=== PATIENT | female | born 1945 | race Caucasian/White ===

== ENCOUNTER 2019-03-22 08:24 | Outpatient (RCR) | payer MEDICARE, SELFPAY ==
[2019-01-23 04:11] LABS: Immunoglobulin A 165 mg/dL (20-320); Immunoglobulin G 725 mg/dL (600-1540); Immunoglobulin M 61 mg/dL (50-300)
[2019-02-23 20:42] LABS: Immunoglobulin A 139 mg/dL (70-320); Immunoglobulin G 472 mg/dL (600-1540); Immunoglobulin M 46 mg/dL (50-300)
[2019-03-24 21:04] LABS: Immunoglobulin A 176 mg/dL (70-320); Immunoglobulin G 757 mg/dL (600-1540); Immunoglobulin M 55 mg/dL (50-300)
== END 2019-04-19 23:59 | disposition home or self-care (01) ==
LOC: CHSLAB 08:24
PROVIDERS: Visit Provider Internal Medicine Pulmonary Disease
DX: D83.9 Common variable immunodeficiency, unspecified (principal)
CPT/HCPCS: 36415; 82784

== ENCOUNTER 2019-04-07 07:14 | Outpatient (CLI) | payer MEDICARE, SELFPAY ==
[2019-04-07 08:06] LABS: Hemoglobin A1C 9.1 % (<5.7)
== END 2019-04-07 07:15 | disposition home or self-care (01) ==
LOC: CHSLAB 07:16
PROVIDERS: PCP Internal Medicine; Visit Provider Internal Medicine
DX: E11.9 Type 2 diabetes mellitus without complications (principal)
CPT/HCPCS: 36415; 83036

== ENCOUNTER 2019-06-21 08:42 | Outpatient (RCR) | payer MEDICARE, SELFPAY ==
[2019-04-25 03:18] LABS: Immunoglobulin A 143 mg/dL (70-320); Immunoglobulin G 493 mg/dL (600-1540); Immunoglobulin M 43 mg/dL (50-300)
[2019-05-23 10:52] LABS: Immunoglobulin A 155 mg/dL (70-320); Immunoglobulin G 654 mg/dL (600-1540); Immunoglobulin M 84 mg/dL (50-300)
[2019-06-23 21:22] LABS: Immunoglobulin A 146 mg/dL (70-320); Immunoglobulin G 482 mg/dL (600-1540); Immunoglobulin M 70 mg/dL (50-300)
== END 2019-07-20 23:59 | disposition home or self-care (01) ==
LOC: CHSLAB 08:42
PROVIDERS: PCP Internal Medicine; Visit Provider Internal Medicine Pulmonary Disease
DX: D83.9 Common variable immunodeficiency, unspecified (principal)
CPT/HCPCS: 36415; 82784

== ENCOUNTER 2019-06-24 07:19 | Outpatient (CLI) | payer MEDICARE, SELFPAY ==
--- NOTE | ~2019-06-24 | CT_ITS ---
EXAMINATION: CT chest abdomen pelvis w con DATE: 06/24/2019 08:15 INDICATION: Lymphoma TECHNIQUE: Transaxial computed tomographic images of the chest, abdomen, and pelvis were obtained aft er the administration of 100 cc of Omnipaque 350 intravenous contrast. The dose-length product (DLP) was 771.16 mGy-cm. Automated exposure control and iterative reconstruction technique were employed. COMPARISON: 04/13/2018 FINDINGS: CHEST CT: There are changes in the left breast consistent with treatment for left breast cancer. There are tree -in-bud opacities of the lung apices. An apparent 5 mm nodule in the right upper lobe appears to refl ect a mucous impacted bronchus on the sagittal reconstructed view. There is no pleural effusion or pn eumothorax. No pathologically enlarged thoracic lymph nodes are identified. The heart size is normal. Calcified pulmonary nodules and calcified left hilar lymph nodes are consistent with old granulomato us disease. ABDOMEN/PELVIS CT: There is a small sliding hiatal hernia. Punctate calcifications in an otherwise normal spleen likely represent healed granulomatous disease. There is a stable lymph node in the gastrohepatic ligament me asuring 12 mm in short axis dimension. No additional enlarged lymph nodes are present in the abdomen or pelvis. The liver, pancreas, and right adrenal gland are normal. There is a stable 2.6 cm mass of the left adrenal gland, most consistent with an adenoma. The gallbladder is surgically absent. The ki dneys are unremarkable. There is no free intraperitoneal gas or evidence of bowel obstruction. There is calcified atherosclerosis of the aorta and many of the other arteries. There is severe lumbar spon dylosis. IMPRESSION: 1. Stable mildly enlarged gastrohepatic ligament lymph node which may be reactive versus stable/treat ed metastatic disease. Otherwise, no lymphadenopathy of the chest, abdomen, or pelvis. 2. Tree-in-bud opacities of the upper lobes, most likely bronchiolitis. 3. Stable changes related to treatment of left breast cancer. Reviewed, dictated and finalized at location A. IMPRESSION: 1. Stable mildly enlarged gastrohepatic ligament lymph node which may be reacti ve versus stable/treated metastatic disease. Otherwise, no lymphadenopathy of t he chest, abdomen, or pelvis. 2. Tree-in-bud opacities of the upper lobes, most likely bronchiolitis. 3. Stable changes related to treatment of left breast cancer.
[2019-06-24 07:45] LABS: Estimated Glomerular Filt Rate 52
== END 2019-06-24 07:20 | disposition home or self-care (01) ==
LOC: CHSIMG 07:21
PROVIDERS: PCP Internal Medicine; Visit Provider Internal Medicine Hematology & Oncology
DX: C83.00 Small cell B-cell lymphoma, unspecified site (principal)
CPT/HCPCS: 71260; 74177; Q9965

== ENCOUNTER 2019-07-20 07:15 | Outpatient (CLI) | payer MEDICARE, SELFPAY ==
[2019-07-20 07:28] LABS: Basophils Absolute Auto 0.04 K/mm3 (0.00-0.10); Basophils Percent Auto 0.6 % (0.0-1.0); Eosinophils Absolute Auto 0.27 K/mm3 (0.02-0.50); Eosinophils Percent Auto 4.2 % (1.0-6.0); Hematocrit 30.7 % (35.0-42.0); Hemoglobin 9.8 g/dL (11.7-13.8); Immature Granulocyte Absolute 0.04 K/mm3 (0.00-0.00); Immature Granulocyte Percent A 0.6 % (0.0-0.0); Lymphocytes Absolute Auto 1.53 K/mm3 (1.10-4.50); Lymphocytes Percent Auto 23.9 % (18.0-42.0); Mean Corpuscular HGB Conc 31.9 g/dL (32.0-36.0); Mean Corpuscular Hemoglobin 27.6 pg (27.0-31.0); Mean Corpuscular Volume 86.5 fL (78.0-102.0); Mean Platelet Volume 10.9 fl (9.2-11.8); Monocytes Absolute Auto 0.52 K/mm3 (0.10-0.90); Monocytes Percent Auto 8.1 % (2.0-11.0); Neutrophils Percent Auto 62.6 % (50.0-70.0); Platelet Count Result 113 K/mm3 (150-420); Red Blood Count 3.55 M/mm3 (4.20-5.40); Red Cell Distribution Width 16.1 % (11.6-14.4); White Blood Count 6.4 K/mm3 (4.8-10.8)
[2019-07-20 08:22] LABS: Alanine Aminotransferase 34 U/L (14-59); Albumin Level 3.6 g/dL (3.4-5.0); Alkaline Phosphatase 68 U/L (46-116); Aspartate Amino Transferase 56 U/L (15-37); Bilirubin,Total 0.4 mg/dL (0.00-1.00); Blood Urea Nitrogen 14 mg/dL (7-18); Calcium 9.1 mg/dL (8.5-10.1); Carbon Dioxide 28 mmol/L (21-32); Chloride 100 mmol/L (98-108); Estimated Glomerular Filt Rate 53; Glucose 191 mg/dL (70-99); Lactate Dehydrogenase 199 U/L (81-234); Osmolality Calculated 293 mOsm/kg (285-295); Sodium 139 mmol/L (136-145); Total Protein 6.9 g/dL (6.4-8.2)
[2019-07-23 04:04] LABS: Immunoglobulin A 148 mg/dL (70-320); Immunoglobulin G 742 mg/dL (600-1540); Immunoglobulin M 77 mg/dL (50-300)
== END 2019-07-20 07:16 | disposition home or self-care (01) ==
PROVIDERS: PCP Internal Medicine; Visit Provider Internal Medicine Pulmonary Disease
DX: C50.919 Malignant neoplasm of unspecified site of unspecified female breast (principal); C83.00 Small cell B-cell lymphoma, unspecified site; D83.9 Common variable immunodeficiency, unspecified
CPT/HCPCS: 36415; 80053; 82784; 83615; 85025

== ENCOUNTER 2019-09-20 07:24 | Outpatient (CLI) | payer MEDICARE, SELFPAY ==
[2019-09-20 07:37] LABS: Basophils Absolute Auto 0.03 K/mm3 (0.00-0.10); Basophils Percent Auto 0.4 % (0.0-1.0); Eosinophils Percent Auto 2.9 % (1.0-6.0); Hematocrit 30.8 % (35.0-42.0); Hemoglobin 10.1 g/dL (11.7-13.8); Immature Granulocyte Absolute 0.04 K/mm3 (0.00-0.00); Immature Granulocyte Percent A 0.6 % (0.0-0.0); Lymphocytes Absolute Auto 2.31 K/mm3 (1.10-4.50); Mean Corpuscular HGB Conc 32.8 g/dL (32.0-36.0); Mean Corpuscular Hemoglobin 29.2 pg (27.0-31.0); Mean Platelet Volume 10.5 fl (9.2-11.8); Monocytes Absolute Auto 0.37 K/mm3 (0.10-0.90); Monocytes Percent Auto 5.3 % (2.0-11.0); Neutrophils Percent Auto 57.8 % (50.0-70.0); Platelet Count Result 123 K/mm3 (150-420); Red Blood Count 3.46 M/mm3 (4.20-5.40); Red Cell Distribution Width 15.8 % (11.6-14.4)
[2019-09-20 12:51] LABS: Alanine Aminotransferase 48 U/L (14-59); Albumin Level 3.6 g/dL (3.4-5.0); Alkaline Phosphatase 66 U/L (46-116); Anion Gap 16.8 mmol/L (7-16); Aspartate Amino Transferase 64 U/L (15-37); Bilirubin,Total 0.3 mg/dL (0.00-1.00); Blood Urea Nitrogen 23 mg/dL (7-18); Carbon Dioxide 25 mmol/L (21-32); Chloride 101 mmol/L (98-108); Estimated Glomerular Filt Rate 44; Glucose 88 mg/dL (70-99); Lactate Dehydrogenase 187 U/L (81-234); Osmolality Calculated 290 mOsm/kg (285-295); Potassium 3.8 mmol/L (3.5-5.1); Sodium 139 mmol/L (136-145); Total Protein 6.8 g/dL (6.4-8.2)
[2019-09-23 11:57] LABS: Immunoglobulin G 614 mg/dL (600-1540)
== END 2019-09-20 07:25 | disposition home or self-care (01) ==
LOC: CHSLAB 07:27
PROVIDERS: PCP Internal Medicine; Visit Provider Internal Medicine Hematology & Oncology
DX: D83.9 Common variable immunodeficiency, unspecified (principal); C50.919 Malignant neoplasm of unspecified site of unspecified female breast; C83.00 Small cell B-cell lymphoma, unspecified site
CPT/HCPCS: 36415; 80053; 82784; 83615; 85025

== ENCOUNTER 2019-10-01 09:30 | Outpatient (CLI) | payer MEDICARE, SELFPAY ==
[2019-10-01 09:43] LABS: Add Urine Microscopic? YES; Appearance Urine Clear (Clear); Bilirubin Urine Negative (Negative); Blood Urine Negative (Negative); Color Urine Yellow (Yellow); Glucose Urine UA Negative (Negative); Ketones Urine Negative (Negative); Leukocyte Esterase Ur Trace (Negative); Nitrate Urine Negative (Negative); Protein Urine 2+ (Negative); Specific Grav Ur 1.025 (1.010-1.020); Urobilinogen Urine 0.2 mg/dL (0.2-1.0); pH Urine 6.5 (5.0-8.0)
[2019-10-01 09:49] LABS: RBC Urine None seen /hpf (0-2); WBC Urine None seen /hpf (0-3)
[2019-10-01 09:50] LABS: Bacteria Urine 1+ /hpf; Mucus Urine Moderate /lpf; Squamous Epithelial Cell Urine Moderate /hpf (Few)
== END 2019-10-01 09:31 | disposition home or self-care (01) ==
PROVIDERS: PCP Internal Medicine; Visit Provider Internal Medicine
DX: R41.0 Disorientation, unspecified (principal)
CPT/HCPCS: 81001; 87086; 87088

== ENCOUNTER 2019-10-07 15:02 | Outpatient (CLI) | payer MEDICARE, SELFPAY ==
[2019-10-07 15:17] LABS: Basophils Absolute Auto 0.02 K/mm3 (0.00-0.10); Basophils Percent Auto 0.3 % (0.0-1.0); Eosinophils Percent Auto 1.7 % (1.0-6.0); Hematocrit 30.5 % (35.0-42.0); Hemoglobin 9.8 g/dL (11.7-13.8); Immature Granulocyte Absolute 0.03 K/mm3 (0.00-0.00); Immature Granulocyte Percent A 0.5 % (0.0-0.0); Lymphocytes Absolute Auto 1.63 K/mm3 (1.10-4.50); Lymphocytes Percent Auto 28.4 % (18.0-42.0); Mean Corpuscular HGB Conc 32.1 g/dL (32.0-36.0); Mean Corpuscular Hemoglobin 28.3 pg (27.0-31.0); Mean Corpuscular Volume 88.2 fL (78.0-102.0); Mean Platelet Volume 11.1 fl (9.2-11.8); Monocytes Absolute Auto 0.37 K/mm3 (0.10-0.90); Monocytes Percent Auto 6.5 % (2.0-11.0); Neutrophils Absolute Auto 3.6 K/mm3 (1.7-7.2); Neutrophils Percent Auto 62.6 % (50.0-70.0); Platelet Count Result 103 K/mm3 (150-420); Red Blood Count 3.46 M/mm3 (4.20-5.40); Red Cell Distribution Width 14.9 % (11.6-14.4); White Blood Count 5.7 K/mm3 (4.8-10.8)
[2019-10-07 16:35] LABS: Alanine Aminotransferase 52 U/L (14-59); Albumin Level 3.5 g/dL (3.4-5.0); Alkaline Phosphatase 67 U/L (46-116); Anion Gap 12.2 mmol/L (7-16); Aspartate Amino Transferase 56 U/L (15-37); Bilirubin,Total 0.4 mg/dL (0.00-1.00); Blood Urea Nitrogen 21 mg/dL (7-18); Calcium 8.9 mg/dL (8.5-10.1); Carbon Dioxide 28 mmol/L (21-32); Chloride 97 mmol/L (98-108); Estimated Glomerular Filt Rate 43; Glucose 286 mg/dL (70-99); Lactate Dehydrogenase 181 U/L (81-234); Osmolality Calculated 289 mOsm/kg (285-295); Potassium 4.2 mmol/L (3.5-5.1); Sodium 133 mmol/L (136-145)
[2019-10-07 17:00] LABS: Thyroid Stimulating Hormone Reflex 2.37 u/IU/mL (0.36-3.74)
== END 2019-10-07 15:03 | disposition home or self-care (01) ==
LOC: CHSLAB 15:05
PROVIDERS: PCP Internal Medicine; Visit Provider Internal Medicine Hematology & Oncology
DX: C50.919 Malignant neoplasm of unspecified site of unspecified female breast (principal); R53.83 Other fatigue
CPT/HCPCS: 36415; 80053; 83615; 84443; 85025

== ENCOUNTER 2019-10-26 07:11 | Outpatient (CLI) | payer MEDICARE, SELFPAY ==
[2019-10-26 07:37] LABS: Hemoglobin A1C 10.1 % (<5.7)
[2019-10-26 08:50] LABS: Alanine Aminotransferase 59 U/L (14-59); Albumin Level 3.4 g/dL (3.4-5.0); Alkaline Phosphatase 65 U/L (46-116); Anion Gap 8 mmol/L (8-16); Aspartate Amino Transferase 90 U/L (15-37); Bilirubin,Total 0.2 mg/dL (0.00-1.00); Blood Urea Nitrogen 18 mg/dL (7-18); Carbon Dioxide 28 mmol/L (21-32); Chloride 100 mmol/L (98-108); Cholesterol 197 mg/dL (0-200); Estimated Glomerular Filt Rate 44; Glucose 197 mg/dL (70-99); HDL Direct 40 mg/dL (40-60); LDL Cholesterol Calculated 106 mg/dL (<130); Osmolality Calculated 288 mOsm/kg (285-295); Potassium 4.1 mmol/L (3.5-5.1); Sodium 136 mmol/L (136-145); Total Protein 6.7 g/dL (6.4-8.2); Triglycerides 254 mg/dL (0-150)
== END 2019-10-26 07:12 | disposition home or self-care (01) ==
LOC: CHSLAB 07:12
PROVIDERS: PCP Internal Medicine; Visit Provider Internal Medicine
DX: E78.5 Hyperlipidemia, unspecified (principal); E11.9 Type 2 diabetes mellitus without complications; I10 Essential (primary) hypertension
CPT/HCPCS: 36415; 80053; 80061; 83036

== ENCOUNTER 2019-11-02 08:20 | Outpatient (CLI) | payer MEDICARE, SELFPAY ==
--- NOTE | ~2019-11-02 | MR_ITS ---
EXAMINATION: MR brain IAC wo con DATE: 11/02/2019 09:04 INDICATION: Memory loss. Headache. Stroke. TECHNIQUE: Magnetic resonance imaging (MRI) of the brain, brainstem, and internal auditory canals was performed without intravenous contrast. Sequences included sagittal and axial T1-weighted FSE, axial diffusion-weighted FS EPI, axial T2*-weighted GRE, axial T2-weighted FLAIR Propeller, and axial T2-w eighted Propeller. Apparent diffusion coefficient (ADC) maps were created. COMPARISON: Brain MRI 01/05/2014 FINDINGS: There are scattered areas of nonspecific increased T2-weighted signal intensity in the cere bral white matter, carloz, and left thalamus. There is no intracranial hemorrhage, acute infarction, or abnormal intracranial mass lesion. The ventricles are normal in size. There are likely changes of oc ular lens replacement surgeries. There is mucosal thickening in the paranasal sinuses. The mastoid ai r cells are normal. IMPRESSION: 1. Mild nonspecific cerebral white matter disease and disease of the carloz and left thalamus, which liborio jeong represents chronic small vessel ischemic disease with interval worsening in the carloz. Reviewed, dictated and finalized at location A. IMPRESSION: 1. Mild nonspecific cerebral white matter disease and disease of the carloz and l eft thalamus, which likely represents chronic small vessel ischemic disease wit h interval worsening in the carloz.
== END 2019-11-02 08:21 | disposition home or self-care (01) ==
LOC: CHSIMG 08:22
PROVIDERS: PCP Internal Medicine; Visit Provider Internal Medicine
DX: R41.3 Other amnesia (principal); I63.9 Cerebral infarction, unspecified
CPT/HCPCS: 70551

== ENCOUNTER 2019-11-17 07:16 | Outpatient (RCR) | payer MEDICARE, SELFPAY ==
[2019-08-22 21:02] LABS: Immunoglobulin G 499 mg/dL (600-1540)
[2019-10-21 11:18] LABS: Immunoglobulin G 742 mg/dL (600-1540)
[2019-11-22 16:12] LABS: Immunoglobulin G 532 mg/dL (600-1540)
== END 2019-11-17 23:59 | disposition home or self-care (01) ==
LOC: CHSLAB 07:16
PROVIDERS: PCP Internal Medicine; Visit Provider Internal Medicine Pulmonary Disease
DX: D83.9 Common variable immunodeficiency, unspecified (principal)
CPT/HCPCS: 36415; 82784

== ENCOUNTER 2019-12-17 07:51 | Outpatient (CLI) | payer MEDICARE, SELFPAY ==
[2019-12-22 20:08] LABS: Immunoglobulin G 783 mg/dL (600-1540)
== END 2019-12-17 07:52 | disposition home or self-care (01) ==
LOC: CHSLAB 07:53
PROVIDERS: PCP Internal Medicine; Visit Provider Internal Medicine Pulmonary Disease
DX: D83.9 Common variable immunodeficiency, unspecified (principal)
CPT/HCPCS: 36415; 82784

== ENCOUNTER 2019-12-27 07:54 | Outpatient (CLI) | payer MEDICARE, SELFPAY ==
--- NOTE | ~2019-12-27 | MM_ITS ---
EXAMINATION: MM screening justyn BI w juliane HISTORY: Screening mammogram, family history of breast cancer in her mother, personal history of justin st cancer. TECHNIQUE: Craniocaudal and mediolateral oblique 3-D tomosynthesis images were obtained and synthetic 2-D images were generated. CAD analysis was submitted and interpreted. COMPARISON: 12/23/2018, 12/18/2017, 12/17/2016 BREAST PARENCHYMAL COMPOSITION: The breasts are heterogeneously dense, which may obscure small masses . FINDINGS: Stable lumpectomy changes are present in the lower inner left breast. There is no evidence of suspicious mass, calcification, or architectural distortion to suggest malignancy in either breast . There has been no suspicious interval change. IMPRESSION: 1. No mammographic evidence of malignancy. 2. Recommend routine screening mammography in one year. BI-RADS Category 2: Benign finding(s). Reviewed, dictated and finalized at location A.
== END 2019-12-27 07:55 | disposition home or self-care (01) ==
PROVIDERS: PCP Internal Medicine; Visit Provider Internal Medicine Hematology & Oncology
DX: Z12.31 Encounter for screening mammogram for malignant neoplasm of breast (principal)
CPT/HCPCS: 77063; 77067

== ENCOUNTER 2020-01-04 07:12 | Outpatient (CLI) | payer MEDICARE, SELFPAY ==
[2020-01-04 07:23] LABS: Basophils Absolute Auto 0.04 K/mm3 (0.00-0.10); Basophils Percent Auto 0.6 % (0.0-1.0); Eosinophils Absolute Auto 0.24 K/mm3 (0.02-0.50); Eosinophils Percent Auto 3.7 % (1.0-6.0); Hematocrit 28.1 % (35.0-42.0); Hemoglobin 8.9 g/dL (11.7-13.8); Immature Granulocyte Absolute 0.05 K/mm3 (0.00-0.00); Immature Granulocyte Percent A 0.8 % (0.0-0.0); Lymphocytes Absolute Auto 2.12 K/mm3 (1.10-4.50); Lymphocytes Percent Auto 33.1 % (18.0-42.0); Mean Corpuscular HGB Conc 31.7 g/dL (32.0-36.0); Mean Corpuscular Hemoglobin 28.6 pg (27.0-31.0); Mean Corpuscular Volume 90.4 fL (78.0-102.0); Monocytes Absolute Auto 0.38 K/mm3 (0.10-0.90); Monocytes Percent Auto 5.9 % (2.0-11.0); Neutrophils Absolute Auto 3.6 K/mm3 (1.7-7.2); Neutrophils Percent Auto 55.9 % (50.0-70.0); Platelet Count Result 125 K/mm3 (150-420); Red Blood Count 3.11 M/mm3 (4.20-5.40); Red Cell Distribution Width 15.8 % (11.6-14.4); White Blood Count 6.4 K/mm3 (4.8-10.8)
[2020-01-04 08:43] LABS: Alanine Aminotransferase 40 U/L (14-59); Albumin Level 3.6 g/dL (3.4-5.0); Alkaline Phosphatase 70 U/L (46-116); Anion Gap 10 mmol/L (8-16); Aspartate Amino Transferase 48 U/L (15-37); Bilirubin,Total 0.3 mg/dL (0.00-1.00); Blood Urea Nitrogen 19 mg/dL (7-18); Carbon Dioxide 27 mmol/L (21-32); Chloride 103 mmol/L (98-108); Estimated Glomerular Filt Rate 44; Glucose 207 mg/dL (70-99); Lactate Dehydrogenase 191 U/L (81-234); Osmolality Calculated 298 mOsm/kg (285-295); Sodium 140 mmol/L (136-145); Total Protein 6.6 g/dL (6.4-8.2)
== END 2020-01-04 07:13 | disposition home or self-care (01) ==
LOC: CHSLAB 07:14
PROVIDERS: PCP Internal Medicine; Visit Provider Internal Medicine Hematology & Oncology
DX: C50.919 Malignant neoplasm of unspecified site of unspecified female breast (principal)
CPT/HCPCS: 36415; 80053; 83615; 85025

== ENCOUNTER 2020-02-05 07:18 | Outpatient (CLI) | payer MEDICARE, SELFPAY ==
[2020-02-05 07:42] LABS: Hemoglobin A1C 10.3 % (<5.7)
[2020-02-05 08:45] LABS: Alanine Aminotransferase 43 U/L (14-59); Albumin Level 3.6 g/dL (3.4-5.0); Alkaline Phosphatase 76 U/L (46-116); Anion Gap 12 mmol/L (8-16); Aspartate Amino Transferase 68 U/L (15-37); Bilirubin,Total 0.3 mg/dL (0.00-1.00); Blood Urea Nitrogen 18 mg/dL (7-18); Calcium 9.6 mg/dL (8.5-10.1); Carbon Dioxide 26 mmol/L (21-32); Chloride 98 mmol/L (98-108); Estimated Glomerular Filt Rate 43; Glucose 154 mg/dL (70-99); Osmolality Calculated 286 mOsm/kg (285-295); Potassium 3.7 mmol/L (3.5-5.1); Sodium 136 mmol/L (136-145); Total Protein 7.6 g/dL (6.4-8.2)
== END 2020-02-05 07:19 | disposition home or self-care (01) ==
LOC: CHSLAB 07:20
PROVIDERS: PCP Internal Medicine; Visit Provider Internal Medicine
DX: E11.9 Type 2 diabetes mellitus without complications (principal)
CPT/HCPCS: 36415; 80053; 83036

== ENCOUNTER 2020-02-29 11:56 | Outpatient (CLI) | payer MEDICARE, SELFPAY ==
--- NOTE | ~2020-02-29 | XR_ITS ---
XR hand LT min 3V DATE: 02/29/2020 12:13 INDICATION: Pain and growth at posterior distal third and fourth metacarpals. TECHNIQUE: 3 views COMPARISON: None FINDINGS: Diffuse osteopenia. There is chondrocalcinosis at the triangular cartilage and radiocarpal joint. There is incomplete segmentation of the lunate and triquetrum bones. No fracture or dislocation, periosteal reaction or bone destruction is detected. Osteoarthritic change is noted at some of the interphalangeal joints IMPRESSION: Osteopenia Chondrocalcinosis Osteoarthritis Reviewed, dictated and finalized at location A. [facility]
== END 2020-02-29 11:57 | disposition home or self-care (01) ==
LOC: CHSIMG 11:59
PROVIDERS: PCP Internal Medicine; Visit Provider Internal Medicine
DX: M79.642 Pain in left hand (principal)
CPT/HCPCS: 73130

== ENCOUNTER 2020-03-01 10:29 | Outpatient (CLI) | payer MEDICARE, SELFPAY ==
--- NOTE | ~2020-03-01 | DEXA_ITS ---
Bone Density Report Name: Elayne Salmeron Age: 74 Sex: Female Ethnicity: White Date of : 1945 Indication: postmenopausal; screening for osteoporosis; Referring Provider: Jonathon Nguyen Study: Bone densitometry was performed. Exam Date: March 01, 2020 Accession number: [id number] Bone Density: Region BMD T-score Z-score Classification AP Spine(L1, L2, L3) 0.986 -0.3 2.2 Normal Femoral Neck (Left) 0.600 -2.2 -0.1 Osteopenia Total Hip (Left) 0.757 -1.5 0.4 Osteopenia Femoral Neck (Right) 0.603 -2.2 -0.1 Osteopenia Total Hip (Right) 0.764 -1.5 0.4 Osteopenia Femoral Neck Mean 0.601 -2.2 -0.1 Osteopenia Total Hip Mean 0.760 -1.5 0.4 Osteopenia World Health Organization criteria for BMD impression classify patients as: Normal (T-score at or above -1.0), Osteopenia (T-score between -1.0 and -2.5), or Osteoporosis (T-score at or below -2.5). 10-year Fracture Risk(1): Major Osteoporotic Fracture 15% Hip Fracture 4.3% Reported Risk Factors: [place] (), Neck BMD=0.600, BMI=32.6 (1) FRAX(R) Version 3.08. Fracture probability calculated for an untreated patient. Fracture probability may be lower if the patient has received treatment. Previous Exams: Region Exam Age BMD T-score BMD Change BMD Change Date g/cm2 vs Baseline vs Previous AP Spine (L1-L3) 03/01/2020 74 0.986 -0.3 -0.195 (-16.5% -0.195 (-16.5% 11/18/2011 66 1.181 1.5 Total Hip(Left) 03/01/2020 74 0.757 -1.5 -0.163 (-17.7% -0.163 (-17.7% 11/18/2011 66 0.919 -0.2 Total Hip(Right) 03/01/2020 74 0.764 -1.5 -0.244 (-24.2% -0.244 (-24.2% 11/18/2011 66 1.008 0.5 *Denotes significance at 95% confidence level, LSC for AP Spine = 0.022 g/cm2, LSC for Total Hip = 0.027 g/cm2 # Denotes dissimilar scan types or analysis methods Clinical Information Provided by Patient: Drinks caffeinated beverages Onset of menses at age 10 Number of children 2 Impression: The patient has low bone mass, based on the Left Femoral Neck T-score. No significant bone loss was observed. Discussion: BONE DENSITY IS LOW AT ONE OR MORE SKELETAL SITES. This patient's lowest T-score is low at one or more skeletal sites. It meets the World Health Organization's (WHO) criteria for ?low bone mass? (T-score between -1.0 and -2.5). The patient's 10-year risk of fracture as calculated by FRAX is less than the threshold where pharmacological therapy is re
== END 2020-03-01 10:30 | disposition home or self-care (01) ==
LOC: CHSLAB 10:31
PROVIDERS: PCP Internal Medicine; Visit Provider Internal Medicine
DX: Z78.0 Asymptomatic menopausal state (principal); M85.80 Other specified disorders of bone density and structure, unspecified site; Z13.820 Encounter for screening for osteoporosis
CPT/HCPCS: 77080

== ENCOUNTER 2020-03-03 09:47 | Emergency (ER) | payer MEDICARE, SELFPAY ==
[2020-03-03 09:50] VITALS: BP 132/76; PULSE 68; RESP 20; TEMP 36.6; O2SAT 97
--- NOTE | 2020-03-03 10:32 | ED_ITS ---
HPI - General Adult General Chief complaint: Extremity Injury, Upper Stated complaint: 74YO female w/ left Hand lesion that is bring worked up by her PCP. She has had an X-ray (Negative for anything acute) and has an appt w/ plactics for excision of lesion w/ DR Dior on 03/21/20. Patient here stating there is new onset of redness at base of lesion and is concerned of infection. Review of Systems Review of Systems: All systems reviewed & are unremarkable except as noted in HPI and below Constitutional: Constitutional: Reports no additional constitutional complaints ENT: Reports system reviewed and no additional complaints, except as documented Cardiovascular: Cardiovascular: Reports no additional cardiovascular complaints Respiratory: Respiratory: Reports no additional respiratory complaints Gastrointestinal: Gastrointestinal: Reports no additional gastrointestinal complaints Genitourinary: Genitourinary: Reports no additional female genitourinary complaints Musculoskeletal: Musculoskeletal: Reports no additional musculoskeletal complaints Integumentary/Breasts: Comments: Left hand lesion on dorsal aspect of hand w/ mild erythema on base, mildly indurated. [facility] Past Medical History Medical History (Updated 03/03/20 @ 10:42 by Benny Etienne MD) Cellulitis of left hand Exam Const: General: healthy appearing, no acute distress and alert Orientation/consciousness: patient oriented x3 HENMT: Head: normal to inspection Neck: Neck: normal visual inspection and no lymphadenopathy Chest: Chest palpation & inspection: normal inspection of the chest Resp: Effort & Inspection: normal respiratory effort Cardio: Rate: regular rate Rhythm: regular rhythm Skin: Other: Left hand lesion on dorsal aspect of hand w/ mild erythema on base, mildly indurated Neuro: General: patient oriented x3, moves all extremities, no meningeal signs, no focal motor deficits and CN's II-XI intact bilaterally Cranial nerves: Yes Nystagmus not present Speech: normal speech Gait exam (Neuro): Normal gait present Extrem: General: normal to inspection Psych: Mental Status: mental status grossly normal Affect: normal affect Attitude: cooperative Course Course Emergency Course: PO abx and d/c home. F/U w/ Plastics as scheduled on 03/21/20 Critical Care Time Critical Care Time Critical Care Time: No Discharge Plan Discharge Clinical Impression: Mass of skin of left hand, Cellulitis of left hand Patient Disposition: Home, Self-Care Condition: Stable Instructions: Antibiotic Form Prescriptions: New cephalexin [Keflex] 500 mg capsule 500 mg PO Q8H Qty: 30 RF: 0 Follow-up/Referrals: Jonathon Nguyen MD [Primary Care Provider] - Time of Disposition: 10:42
[2020-03-03 10:50] VITALS: BP 130/73; PULSE 68; RESP 20; TEMP 36.4; O2SAT 97
== END 2020-03-03 10:55 | disposition home or self-care (01) ==
PROVIDERS: Emergency Provider Family Medicine; PCP Internal Medicine
DX: R22.32 Localized swelling, mass and lump, left upper limb (principal); L03.114 Cellulitis of left upper limb
CPT/HCPCS: 99283

== ENCOUNTER 2020-03-23 07:24 | Outpatient (RCR) | payer MEDICARE, SELFPAY ==
[2020-01-23 17:56] LABS: Immunoglobulin G 512 mg/dL (600-1540)
[2020-02-20 14:21] LABS: Immunoglobulin G 799 mg/dL (600-1540)
[2020-03-28 08:12] LABS: Immunoglobulin G 895 mg/dL (600-1540)
== END 2020-04-16 23:59 | disposition home or self-care (01) ==
LOC: CHSLAB 07:24
PROVIDERS: PCP Internal Medicine; Visit Provider Internal Medicine Pulmonary Disease
DX: D83.9 Common variable immunodeficiency, unspecified (principal)
CPT/HCPCS: 36415; 82784

== ENCOUNTER → 2020-04-08 01:07 | Outpatient (CLI) | payer MEDICARE, SELFPAY ==
[2020-04-08 20:38] LABS: SARS-CoV-2 RNA PCR Negative
== END ==
PROVIDERS: PCP Internal Medicine; Visit Provider Plastic Surgery
DX: Z01.812 Encounter for preprocedural laboratory examination (principal); Z20.822 Contact with and (suspected) exposure to COVID-19
CPT/HCPCS: C9803; U0003; U0005

== ENCOUNTER 2020-04-12 00:36 | Day surgery (SDC) | payer MEDICARE, SELFPAY ==
[2020-04-05 09:57] VITALS: BMI 31.4
[2020-04-12] VITALS (8 sets, daily range): BP systolic 106–159; BP diastolic 46–76; PULSE 56–62; RESP 16–22; TEMP 37.2; O2SAT 98–100
--- NOTE | 2020-04-12 07:13 | WPDHPUPDATE1 ---
History and Physical Update Update Date/Time: 04/12/20 07:13 History and Physical has been reviewed, including an updated exam of the patient. There are NO changes in the patient's condition. Risks, benefits, and alternatives have been discussed and questions answered. Patient agrees to proceed with procedure.
[2020-04-12] MEDS: LIDO 1%/EPINEPHRINE 1:100,000 50 ML VIAL INFILTRATE (11:24)
--- NOTE | 2020-04-12 11:32 | PM.OP ---
Procedure Note - Brief Procedure Note - Brief Date of procedure: 04/13/20 Pre-op diagnosis: Skin Mass of the Left Hand Surgeon: Cirilo Mortensen MD
--- NOTE | 2020-04-12 12:01 | PM.OP ---
Procedure Note - Brief Procedure Note - Brief Date of procedure: 04/12/20 Pre-op diagnosis: Skin Mass of the Left Hand Post-op diagnosis: other (SCCA of left dorsal hand. ) Procedure performed: 2 cm excision of SCCA of left dorsal hand with FS and simple repair 3.5 cm. Anesthesia: local Surgeon: Cirilo Mortensen MD Estimated blood loss (mL): 4 Tourniquet time (min): 0 Drains: No Packing: No Pathology: yes Complications: No immediate complications Condition: stable Disposition: same day
--- NOTE | 2020-04-13 14:20 | PM.PROC ---
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 She was taken to the operating room and placed supine on the operating table. A time-out was held and confirmed. The site was prepped and draped in usual fashion. The site was locally infiltrated with 1% lidocaine with epinephrine. The procedure was done without tourniquet control. The lesion was excised into the subcutaneous tissue. The most proximal portion was marked with a suture for 12 o'clock. The pathologist revealed the diagnosis was squamous cell carcinoma and the margins were free. The wound was widely undermined approximately a cm and a half in all directions. The direction of closure was carefully chosen to allow approximation of skin edges with intradermal 4-0 Vicryl and a running 4-0 nylon suture. A small bandage was applied. The tourniquet was released and she was discharged from the operating room stable condition Surgeon: Cirilo Mortensen MD
== END 2020-04-12 12:24 | disposition home or self-care (01) ==
PROVIDERS: PCP Internal Medicine; Visit Provider Plastic Surgery
PROC: (CPT 11622; principal; 2020-04-12 11:15)
DX: C44.629 Squamous cell carcinoma of skin of left upper limb, including shoulder (principal); I10 Essential (primary) hypertension; E11.9 Type 2 diabetes mellitus without complications; Z79.4 Long term (current) use of insulin; Z85.3 Personal history of malignant neoplasm of breast; Z92.21 Personal history of antineoplastic chemotherapy; Z92.3 Personal history of irradiation
CPT/HCPCS: 11622; 12042; 88305; 88331; 88332; A9270

== ENCOUNTER 2020-05-02 07:19 | Outpatient (CLI) | payer MEDICARE, SELFPAY ==
[2020-05-02 07:30] LABS: Basophils Absolute Auto 0.03 K/mm3 (0.00-0.10); Basophils Percent Auto 0.4 % (0.0-1.0); Eosinophils Absolute Auto 0.25 K/mm3 (0.02-0.50); Eosinophils Percent Auto 3.6 % (1.0-6.0); Hematocrit 30.9 % (35.0-42.0); Hemoglobin 9.6 g/dL (11.7-13.8); Immature Granulocyte Absolute 0.03 K/mm3 (0.00-0.00); Immature Granulocyte Percent A 0.4 % (0.0-0.0); Lymphocytes Absolute Auto 1.68 K/mm3 (1.10-4.50); Lymphocytes Percent Auto 24.1 % (18.0-42.0); Mean Corpuscular HGB Conc 31.1 g/dL (32.0-36.0); Mean Corpuscular Hemoglobin 27.1 pg (27.0-31.0); Mean Corpuscular Volume 87.3 fL (78.0-102.0); Mean Platelet Volume 11.1 fl (9.2-11.8); Monocytes Absolute Auto 0.45 K/mm3 (0.10-0.90); Monocytes Percent Auto 6.5 % (2.0-11.0); Neutrophils Absolute Auto 4.5 K/mm3 (1.7-7.2); Platelet Count Result 109 K/mm3 (150-420); Red Blood Count 3.54 M/mm3 (4.20-5.40); Red Cell Distribution Width 16.8 % (11.6-14.4)
[2020-05-02 08:15] LABS: Alanine Aminotransferase 39 U/L (14-59); Albumin Level 3.7 g/dL (3.4-5.0); Alkaline Phosphatase 86 U/L (46-116); Anion Gap 8 mmol/L (8-16); Aspartate Amino Transferase 72 U/L (15-37); Bilirubin,Total 0.5 mg/dL (0.00-1.00); Blood Urea Nitrogen 16 mg/dL (7-18); Calcium 8.9 mg/dL (8.5-10.1); Carbon Dioxide 30 mmol/L (21-32); Chloride 99 mmol/L (98-108); Estimated Glomerular Filt Rate 42; Glucose 187 mg/dL (70-99); Lactate Dehydrogenase 216 U/L (81-234); Osmolality Calculated 290 mOsm/kg (285-295); Potassium 3.9 mmol/L (3.5-5.1); Sodium 137 mmol/L (136-145); Total Protein 7.5 g/dL (6.4-8.2)
== END 2020-05-02 07:20 | disposition home or self-care (01) ==
LOC: CHSLAB 07:20
PROVIDERS: PCP Internal Medicine; Visit Provider Internal Medicine Hematology & Oncology
DX: C50.919 Malignant neoplasm of unspecified site of unspecified female breast (principal)
CPT/HCPCS: 36415; 80053; 83615; 85025

== ENCOUNTER 2020-05-06 07:22 | Outpatient (CLI) | payer MEDICARE, SELFPAY ==
[2020-05-06 07:55] LABS: Hemoglobin A1C 10.2 % (<5.7)
[2020-05-06 08:22] LABS: Alanine Aminotransferase 56 U/L (14-59); Albumin Level 3.5 g/dL (3.4-5.0); Alkaline Phosphatase 80 U/L (46-116); Anion Gap 11 mmol/L (8-16); Aspartate Amino Transferase 65 U/L (15-37); Bilirubin,Total 0.4 mg/dL (0.00-1.00); Blood Urea Nitrogen 17 mg/dL (7-18); Calcium 9.1 mg/dL (8.5-10.1); Carbon Dioxide 28 mmol/L (21-32); Chloride 99 mmol/L (98-108); Cholesterol 139 mg/dL (0-200); Estimated Glomerular Filt Rate 44; Glucose 131 mg/dL (70-99); HDL Direct 32 mg/dL (40-60); LDL Cholesterol Calculated 62 mg/dL (<130); Osmolality Calculated 289 mOsm/kg (285-295); Potassium 3.6 mmol/L (3.5-5.1); Sodium 138 mmol/L (136-145); Total Protein 7.2 g/dL (6.4-8.2); Triglycerides 227 mg/dL (0-150)
== END 2020-05-06 07:23 | disposition home or self-care (01) ==
LOC: CHSLAB 07:23
PROVIDERS: PCP Internal Medicine; Visit Provider Internal Medicine
DX: E11.9 Type 2 diabetes mellitus without complications (principal); I10 Essential (primary) hypertension; E78.5 Hyperlipidemia, unspecified
CPT/HCPCS: 36415; 80053; 80061; 83036

== ENCOUNTER 2020-06-20 08:21 | Outpatient (RCR) | payer MEDICARE, SELFPAY ==
[2020-04-24 12:46] LABS: Immunoglobulin G 593 mg/dL (600-1540)
[2020-05-26 21:25] LABS: Immunoglobulin G 842 mg/dL (600-1540)
[2020-06-23 11:07] LABS: Immunoglobulin G 609 mg/dL (600-1540)
== END 2020-07-20 23:59 | disposition home or self-care (01) ==
LOC: CHSLAB 08:21
PROVIDERS: PCP Internal Medicine; Visit Provider Internal Medicine Pulmonary Disease
DX: D83.9 Common variable immunodeficiency, unspecified (principal)
CPT/HCPCS: 36415; 82784

== ENCOUNTER 2020-07-26 15:41 | Outpatient (CLI) | payer MEDICARE, SELFPAY ==
[2020-07-29 10:11] LABS: Immunoglobulin A 148 mg/dL (70-320); Immunoglobulin G 753 mg/dL (600-1540); Immunoglobulin M 152 mg/dL (50-300)
== END 2020-07-26 15:42 | disposition home or self-care (01) ==
PROVIDERS: PCP Internal Medicine
DX: D83.9 Common variable immunodeficiency, unspecified (principal)
CPT/HCPCS: 36415; 82784

== ENCOUNTER 2020-08-01 07:15 | Outpatient (CLI) | payer MEDICARE, SELFPAY ==
[2020-08-01 07:29] LABS: Hematocrit 31.2 % (35.0-42.0); Hemoglobin 9.7 g/dL (11.7-13.8); Immature Platelet Fraction Pct 3.4 % (1.0-7.0); Mean Corpuscular HGB Conc 31.1 g/dL (32.0-36.0); Mean Corpuscular Hemoglobin 27.3 pg (27.0-31.0); Mean Corpuscular Volume 87.9 fL (78.0-102.0); Mean Platelet Volume 11.3 fl (9.2-11.8); Platelet Count Result 76 K/mm3 (150-420); Red Blood Count 3.55 M/mm3 (4.20-5.40); Red Cell Distribution Width 16.2 % (11.6-14.4); White Blood Count 4.9 K/mm3 (4.8-10.8)
[2020-08-01 07:44] LABS: Band Neutrophils Percent 0 % (0-6); Eosinophils Absolute Manual 0.04 K/mm3 (0.02-0.5); Eosinophils Percent Manual 1 % (1-6); Lymphocytes Absolute Manual 1.12 K/mm3 (1.1-4.5); Lymphocytes Percent Manual 23 % (18-44); Monocytes Absolute Manual 0.29 K/mm3 (0.1-0.90); Monocytes Percent Manual 6 % (3-9); Neutrophils Absolute Manual 3.43 K/mm3 (1.7-7.2); Neutrophils Percent Manual 70 % (46-73); Total Cells Counted 100
[2020-08-01 07:45] LABS: Platelet Estimate Decreased (Adequate)
[2020-08-01 08:35] LABS: Alanine Aminotransferase 48 U/L (14-59); Albumin Level 3.6 g/dL (3.4-5.0); Alkaline Phosphatase 102 U/L (46-116); Anion Gap 10 mmol/L (8-16); Aspartate Amino Transferase 52 U/L (15-37); Bilirubin,Total 0.4 mg/dL (0.00-1.00); Blood Urea Nitrogen 16 mg/dL (7-18); Calcium 9.1 mg/dL (8.5-10.1); Carbon Dioxide 28 mmol/L (21-32); Chloride 102 mmol/L (98-108); Estimated Glomerular Filt Rate 44; Glucose 185 mg/dL (70-99); Osmolality Calculated 296 mOsm/kg (285-295); Potassium 3.8 mmol/L (3.5-5.1); Sodium 140 mmol/L (136-145); Total Protein 6.8 g/dL (6.4-8.2)
== END 2020-08-01 07:16 | disposition home or self-care (01) ==
LOC: CHSLAB 07:17
PROVIDERS: PCP Internal Medicine; Visit Provider Internal Medicine Hematology & Oncology
DX: C50.919 Malignant neoplasm of unspecified site of unspecified female breast (principal)
CPT/HCPCS: 36415; 80053; 85025; 85055

== ENCOUNTER 2020-08-08 07:09 | Outpatient (CLI) | payer MEDICARE, SELFPAY ==
[2020-08-08 08:00] LABS: Hemoglobin A1C 9.7 % (<5.7)
== END 2020-08-08 07:10 | disposition home or self-care (01) ==
LOC: CHSLAB 07:12
PROVIDERS: PCP Internal Medicine; Visit Provider Internal Medicine
DX: E11.9 Type 2 diabetes mellitus without complications (principal)
CPT/HCPCS: 36415; 83036

== ENCOUNTER 2020-10-23 07:12 | Outpatient (RCR) | payer MEDICARE, SELFPAY ==
[2020-09-10 21:54] LABS: Immunoglobulin A 152 mg/dL (70-320); Immunoglobulin G 828 mg/dL (600-1540); Immunoglobulin M 186 mg/dL (50-300)
[2020-10-25 10:14] LABS: Immunoglobulin A 155 mg/dL (70-320); Immunoglobulin G 848 mg/dL (600-1540); Immunoglobulin M 216 mg/dL (50-300)
== END 2020-12-06 23:59 | disposition home or self-care (01) ==
LOC: CHSLAB 07:12
PROVIDERS: PCP Internal Medicine; Visit Provider Internal Medicine Pulmonary Disease
DX: D83.9 Common variable immunodeficiency, unspecified (principal)
CPT/HCPCS: 36415; 82784

== ENCOUNTER 2020-11-01 07:24 | Outpatient (CLI) | payer MEDICARE, SELFPAY ==
[2020-11-01 07:58] LABS: Hematocrit 30.7 % (35.0-42.0); Hemoglobin 9.9 g/dL (11.7-13.8); Immature Platelet Fraction Pct 3.9 % (1.0-7.0); Mean Corpuscular HGB Conc 32.2 g/dL (32.0-36.0); Mean Corpuscular Hemoglobin 29.4 pg (27.0-31.0); Mean Corpuscular Volume 91.1 fL (78.0-102.0); Mean Platelet Volume 12.4 fl (9.2-11.8); Platelet Count Result 71 K/mm3 (150-420); Red Blood Count 3.37 M/mm3 (4.20-5.40); White Blood Count 3.7 K/mm3 (4.8-10.8)
[2020-11-01 08:35] LABS: Alanine Aminotransferase 47 U/L (14-59); Albumin Level 3.5 g/dL (3.4-5.0); Alkaline Phosphatase 107 U/L (46-116); Anion Gap 10 mmol/L (8-16); Aspartate Amino Transferase 52 U/L (15-37); Bilirubin,Total 0.4 mg/dL (0.00-1.00); Blood Urea Nitrogen 19 mg/dL (7-18); Calcium 8.9 mg/dL (8.5-10.1); Carbon Dioxide 26 mmol/L (21-32); Chloride 101 mmol/L (98-108); Estimated Glomerular Filt Rate 44; Glucose 188 mg/dL (70-99); Lactate Dehydrogenase 169 U/L (81-234); Osmolality Calculated 291 mOsm/kg (285-295); Potassium 3.9 mmol/L (3.5-5.1); Sodium 137 mmol/L (136-145); Total Protein 7.9 g/dL (6.4-8.2)
[2020-11-01 08:41] LABS: Band Neutrophils Percent 0 % (0-6); Basophils Absolute Manual 0.03 K/mm3 (0-0.1); Basophils Percent Manual 1 % (0-1); Eosinophils Absolute Manual 0.14 K/mm3 (0.02-0.5); Eosinophils Percent Manual 4 % (1-6); Lymphocytes Absolute Manual 1.59 K/mm3 (1.1-4.5); Lymphocytes Percent Manual 43 % (18-44); Monocytes Absolute Manual 0.29 K/mm3 (0.1-0.90); Monocytes Percent Manual 8 % (3-9); Neutrophils Absolute Manual 1.62 K/mm3 (1.7-7.2); Neutrophils Percent Manual 44 % (46-73); Total Cells Counted 100
[2020-11-01 08:42] LABS: Platelet Estimate Decreased (Adequate)
== END 2020-11-01 07:25 | disposition home or self-care (01) ==
LOC: CHSLAB 07:26
PROVIDERS: PCP Internal Medicine; Visit Provider Internal Medicine Hematology & Oncology
DX: C83.00 Small cell B-cell lymphoma, unspecified site (principal)
CPT/HCPCS: 36415; 80053; 83615; 85025; 85055

== ENCOUNTER 2020-11-10 09:04 | Outpatient (CLI) | payer MEDICARE, SELFPAY ==
[2020-11-10 10:23] LABS: SARS-CoV-2 RNA PCR Negative (Negative)
== END 2020-11-10 09:05 | disposition home or self-care (01) ==
LOC: CHSLAB 09:06
PROVIDERS: PCP Internal Medicine; Visit Provider Internal Medicine
DX: J02.9 Acute pharyngitis, unspecified (principal); Z20.822 Contact with and (suspected) exposure to COVID-19
CPT/HCPCS: 87081; 87880; C9803; U0003; U0005

== ENCOUNTER 2020-11-17 07:23 | Outpatient (CLI) | payer MEDICARE, SELFPAY ==
[2020-11-17 08:46] LABS: Alanine Aminotransferase 43 U/L (14-59); Albumin Level 3.6 g/dL (3.4-5.0); Alkaline Phosphatase 108 U/L (46-116); Anion Gap 12 mmol/L (8-16); Aspartate Amino Transferase 56 U/L (15-37); Bilirubin,Total 0.4 mg/dL (0.00-1.00); Blood Urea Nitrogen 21 mg/dL (7-18); Calcium 9.1 mg/dL (8.5-10.1); Carbon Dioxide 27 mmol/L (21-32); Chloride 103 mmol/L (98-108); Cholesterol 152 mg/dL (0-200); Estimated Glomerular Filt Rate 46; Glucose 106 mg/dL (70-99); HDL Direct 32 mg/dL (40-60); LDL Cholesterol Calculated 64 mg/dL (<130); Osmolality Calculated 297 mOsm/kg (285-295); Sodium 142 mmol/L (136-145); Total Protein 7.2 g/dL (6.4-8.2); Triglycerides 280 mg/dL (0-150)
== END 2020-11-17 07:24 | disposition home or self-care (01) ==
LOC: CHSLAB 07:25
PROVIDERS: PCP Internal Medicine; Visit Provider Internal Medicine
DX: E11.9 Type 2 diabetes mellitus without complications (principal); E78.5 Hyperlipidemia, unspecified
CPT/HCPCS: 36415; 80053; 80061; 83036

== ENCOUNTER 2020-11-25 07:33 | Outpatient (CLI) | payer MEDICARE, SELFPAY ==
[2020-11-28 23:04] LABS: Immunoglobulin A 143 mg/dL (70-320); Immunoglobulin G 831 mg/dL (600-1540); Immunoglobulin M 222 mg/dL (50-300)
== END 2020-11-25 07:34 | disposition home or self-care (01) ==
LOC: CHSLAB 07:38
PROVIDERS: PCP Internal Medicine; Visit Provider Internal Medicine Pulmonary Disease
DX: D83.9 Common variable immunodeficiency, unspecified (principal)
CPT/HCPCS: 36415; 82784

== ENCOUNTER 2020-12-07 14:11 | Outpatient (CLI) | payer MEDICARE, SELFPAY ==
--- NOTE | ~2020-12-07 | XR_ITS ---
XR ribs LT 2V DATE: 12/07/2020 14:35 INDICATION: Fall days ago; left rib pain. TECHNIQUE: 3 views of the left ribs COMPARISON: 12/03/2018 2 view chest FINDINGS: There is diffuse osteopenia. No rib fracture or bone destruction is detected. The left lung is clear. No pulmonary infiltrate or consolidation, pulmonary vascular congestion or pleural effusion or pneumothorax. There is dextroscoliosis and degenerative change of the thoracic spine. IMPRESSION: Osteopenia No apparent rib fracture Reviewed, dictated and finalized at location A.
== END 2020-12-07 14:12 | disposition home or self-care (01) ==
LOC: CHSIMG 14:13
PROVIDERS: PCP Internal Medicine; Visit Provider Nurse Practitioner Family
DX: R07.81 Pleurodynia (principal); W19.XXXA Unspecified fall, initial encounter; M85.88 Other specified disorders of bone density and structure, other site
CPT/HCPCS: 71100

== ENCOUNTER 2020-12-29 12:38 | Outpatient (CLI) | payer MEDICARE, SELFPAY ==
--- NOTE | ~2020-12-29 | MM_ITS ---
EXAMINATION: MM screening justyn BI w juliane HISTORY: Screening mammogram TECHNIQUE: Craniocaudal and mediolateral oblique 3-D tomosynthesis images were obtained and synthetic 2-D images were generated. CAD analysis was submitted and interpreted. COMPARISON: 12/27/2019, 12/23/2018, 12/18/2017 bilateral screening mammogram examinations BREAST PARENCHYMAL COMPOSITION: The breasts are heterogeneously dense, which may obscure small masses . FINDINGS: Again noted is volume loss of the left breast consistent with partial mastectomy for breast malignancy. Scattered bilateral benign calcifications are again noted. There is no evidence of suspicious mass, c alcification, or architectural distortion to suggest malignancy in either breast. There has been no s uspicious interval change. IMPRESSION: 1. Status post left partial mastectomy for breast cancer. No mammographic evidence of malignancy. 2. Recommend routine screening mammography in one year. BI-RADS Category 2: Benign finding(s). Reviewed, dictated and finalized at location A. IMPRESSION: 1. Status post left partial mastectomy for breast cancer. No mammographic evide nce of malignancy. 2. Recommend routine screening mammography in one year. BI-RADS Category 2: Benign finding(s).
[2021-01-03 13:10] LABS: Immunoglobulin A 153 mg/dL (70-320); Immunoglobulin G 906 mg/dL (600-1540); Immunoglobulin M 271 mg/dL (50-300)
== END 2020-12-29 12:39 | disposition home or self-care (01) ==
LOC: CHSIMG 12:43
PROVIDERS: PCP Internal Medicine; Visit Provider Internal Medicine
DX: D83.9 Common variable immunodeficiency, unspecified (principal); Z12.31 Encounter for screening mammogram for malignant neoplasm of breast
CPT/HCPCS: 36415; 77063; 77067; 82784

== ENCOUNTER 2021-01-24 07:36 | Outpatient (CLI) | payer MEDICARE, SELFPAY ==
--- NOTE | ~2021-01-24 | CT_ITS ---
EXAMINATION: CT chest abdomen pelvis w con DATE: 01/24/2021 08:25 INDICATION: Small lymphocytic lymphoma. TECHNIQUE: Computed tomography (CT) of the chest, abdomen, and pelvis was performed with 100 mL Omnip aque 350 intravenous contrast. Automated exposure control and iterative reconstruction technique were employed. The dose-length product was 696.61 mGy-cm. COMPARISON: CT chest, abdomen, and pelvis 06/24/2019, CT abdomen and pelvis 03/18/16, chest CT 09/24/17 FINDINGS: CHEST CT: There is mild scarring at the lung apices. There is mild scarring in paraspinal right lower lobe. The re is mild radiation fibrosis in anterolateral left lung. There are tree-in-bud opacities and centril obular nodules in right middle lobe and the upper lobes. A calcified left lung nodule and calcified l eft hilar and mediastinal lymph nodes are consistent with old granulomatous disease. No pleural effus ion. The heart size is normal. There are coronary artery calcifications. There are calcifications of aortic valve. No pericardial effusion. There is mild thoracic spondylosis. There is a chronic kristin priya fracture of T12. ABDOMEN/PELVIS CT: The liver is normal. There is moderate splenomegaly measuring 16.9 cm, increased from 14.4 cm on 06/23. Calcifications in the spleen are consistent with old granulomatous disease. Again seen is a 5 mm low-attenuation lesion in the spleen, stable from 09/24/17, likely benign. There are changes of cho lecystectomy. The pancreas and right adrenal gland are normal. Again seen is a 2.3 cm mass in left ad renal gland measuring soft tissue attenuation, likely an adenoma. There is cortical thinning of the k idneys. There is diverticulosis of the colon without evidence of diverticulitis. There are no dilated loops of bowel. The appendix is not visualized. There is a 16 x 21 mm periportal lymph node. There i s a 19 x 14 mm right external iliac lymph node. There is trace pelvic ascites. There is severe lumbar spondylosis. IMPRESSION: 1. Mildly enlarged periportal and right external iliac lymph nodes, stable from 03/18/2016, which may be reactive lymphadenopathy or lymphoma. 2. Worsened moderate splenomegaly. 3. Chronic tree-in-bud opacities and centrilobular nodules involving the right middle lobe and upper lobes, likely chronic infection. Reviewed, dictated and finalized at location B. [employer]
[2021-01-24 08:06] LABS: Estimated Glomerular Filt Rate 40
== END 2021-01-24 07:37 | disposition home or self-care (01) ==
LOC: CHSIMG 07:37
PROVIDERS: PCP Internal Medicine; Visit Provider Internal Medicine Hematology & Oncology
DX: C83.00 Small cell B-cell lymphoma, unspecified site (principal)
CPT/HCPCS: 71260; 74177; Q9967

== ENCOUNTER 2021-01-30 08:00 | Outpatient (CLI) | payer MEDICARE, SELFPAY ==
[2021-01-30 08:21] LABS: Basophils Absolute Auto 0.02 K/mm3 (0.00-0.10); Basophils Percent Auto 0.4 % (0.0-1.0); Eosinophils Percent Auto 4.3 % (1.0-6.0); Hematocrit 30.5 % (35.0-42.0); Hemoglobin 9.7 g/dL (11.7-13.8); Immature Granulocyte Absolute 0.01 K/mm3 (0.00-0.00); Immature Granulocyte Percent A 0.2 % (0.0-0.0); Immature Platelet Fraction Pct 4.2 % (1.0-7.0); Lymphocytes Absolute Auto 1.35 K/mm3 (1.10-4.50); Lymphocytes Percent Auto 28.7 % (18.0-42.0); Mean Corpuscular HGB Conc 31.8 g/dL (32.0-36.0); Mean Corpuscular Volume 91.3 fL (78.0-102.0); Monocytes Percent Auto 8.5 % (2.0-11.0); Neutrophils Absolute Auto 2.7 K/mm3 (1.7-7.2); Neutrophils Percent Auto 57.9 % (50.0-70.0); Platelet Count Result 60 K/mm3 (150-420); Red Blood Count 3.34 M/mm3 (4.20-5.40); Red Cell Distribution Width 16.2 % (11.6-14.4); White Blood Count 4.7 K/mm3 (4.8-10.8)
[2021-01-30 09:16] LABS: Alanine Aminotransferase 36 U/L (14-59); Albumin Level 3.6 g/dL (3.4-5.0); Alkaline Phosphatase 115 U/L (46-116); Anion Gap 12 mmol/L (8-16); Aspartate Amino Transferase 47 U/L (15-37); Bilirubin,Total 0.4 mg/dL (0.00-1.00); Blood Urea Nitrogen 27 mg/dL (7-18); Calcium 8.9 mg/dL (8.5-10.1); Carbon Dioxide 27 mmol/L (21-32); Chloride 102 mmol/L (98-108); Estimated Glomerular Filt Rate 36; Glucose 175 mg/dL (70-99); Lactate Dehydrogenase 193 U/L (81-234); Osmolality Calculated 301 mOsm/kg (285-295); Sodium 141 mmol/L (136-145); Total Protein 7.2 g/dL (6.4-8.2)
[2021-02-01 21:13] LABS: Immunoglobulin A 166 mg/dL (70-320); Immunoglobulin G 939 mg/dL (600-1540); Immunoglobulin M 310 mg/dL (50-300)
== END 2021-01-30 08:01 | disposition home or self-care (01) ==
LOC: CHSLAB 08:08
PROVIDERS: PCP Internal Medicine; Visit Provider Internal Medicine Pulmonary Disease
DX: D83.9 Common variable immunodeficiency, unspecified (principal); C83.00 Small cell B-cell lymphoma, unspecified site
CPT/HCPCS: 36415; 80053; 82784; 83615; 85025; 85055

== ENCOUNTER 2021-02-28 11:28 | Outpatient (CLI) | payer MEDICARE, SELFPAY ==
[2021-02-28 12:16] LABS: Influenza A QL RT-PCR Negative (Negative); Influenza B QL RT-PCR Negative (Negative); SARS-CoV-2 RNA PCR Negative (Negative)
== END 2021-02-28 11:29 | disposition home or self-care (01) ==
PROVIDERS: PCP Internal Medicine; Visit Provider Internal Medicine
DX: J06.9 Acute upper respiratory infection, unspecified (principal); Z20.822 Contact with and (suspected) exposure to COVID-19
CPT/HCPCS: 87502; C9803; U0003; U0005

== ENCOUNTER 2021-03-12 08:34 | Outpatient (RCR) | payer MEDICARE, SELFPAY ==
[2021-03-15 14:19] LABS: Immunoglobulin A 141 mg/dL (70-320); Immunoglobulin G 934 mg/dL (600-1540); Immunoglobulin M 322 mg/dL (50-300)
== END 2021-06-10 23:59 | disposition home or self-care (01) ==
LOC: CHSLAB 08:34
PROVIDERS: PCP Internal Medicine; Visit Provider Internal Medicine Pulmonary Disease
DX: D83.9 Common variable immunodeficiency, unspecified (principal)
CPT/HCPCS: 36415; 82784

== ENCOUNTER 2021-04-21 08:31 | Emergency (ER) | payer MEDICARE, SELFPAY ==
[2021-04-21 08:43] VITALS: BP 140/53; PULSE 72; RESP 16; TEMP 36.3; O2SAT 100
[2021-04-21 09:27] LABS: SARS-CoV-2 Ag Positive (Negative)
--- NOTE | 2021-04-21 09:35 | ED.URI ---
HPI - URI/Sore Throat General Chief Complaint: Upper Respiratory Infection Stated Complaint: sinusitis/cough Time Seen by Provider: 04/21/21 08:35 Source: patient and RN notes reviewed Mode of arrival: ambulatory Limitations: no limitations History of Present Illness MD elicited complaint: cough Pertinent past history: other (recurrent bronchitis) Onset (ago): day(s) (2) Consistency: constant Severity: mild Pain scale (0-10): 0 Able to tolerate fluids by mouth: Yes Exacerbating factors: nothing Relieving factors: nothing Associated symptoms: nasal congestion, cough and shortness of breath Treatments prior to arrival: none Related Data Home Medications Medication Instructions Recorded Confirmed Novolin N NPH U-100 Insulin See Rx Instructions .ROUTE .COMPLEX 04/05/20 04/21/21 allopurinol 100 mg BID 04/05/20 04/21/21 budesonide-formoterol 2 puff INHALATION BID 04/05/20 04/21/21 carvedilol 25 mg BID 04/05/20 04/21/21 hydrochlorothiazide 25 mg QAM 04/05/20 04/21/21 memantine 10 mg BID 04/05/20 04/21/21 montelukast 10 mg QAM 04/05/20 04/21/21 omeprazole 40 mg QAM 04/05/20 04/21/21 simvastatin 20 mg PO HS 04/05/20 04/21/21 Allergies Allergy/AdvReac Type Severity Reaction Status Date / Time No Known Allergies Allergy Verified 04/21/21 08:47 Review of Systems Review of Systems: All systems reviewed & are unremarkable except as noted in HPI and below Respiratory: Respiratory: Reports chest congestion and Reports cough PMFSH Past Medical History Medical History Bronchitis Cellulitis of left hand Social History Social History Smoking status: Never smoker Second hand tobacco smoke exposure: No Alcohol intake: never Substance use: never Substance use type: does not use Spiritual care concerns: No Exam Const: General: healthy appearing, no acute distress and alert Nutritional Appearance: well nourished Orientation/consciousness: patient oriented x3 Limitations: no limitations HENMT: Head: normal to inspection Ears: external ears normal, TM's normal bilaterally and EAC's normal General nose exam: Normal external nose present and Normal nares present Face and sinus: normal facial exam and sinuses nontender Mouth: Yes lip normal and Yes moist mucous membranes Eyes: Conjunctivae: conjunctivae normal Pupils: Equal, round and reactive pupils present EOM: EOMs intact bilaterally Neck: Neck: normal visual inspection and no lymphadenopathy Other: supple neck Chest: Chest palpation & inspection: normal inspection of the chest Resp: Effort & Inspection: normal respiratory effort Auscultation: rhonchi (minimal occasional rhonchi) Cardio: Rate: regular rate Rhythm: regular rhythm GI: GI Palp: Yes Soft to palpation and No Tenderness to palpation present (GI) Auscultation: normal bowel sounds : General: Yes bladder normal to palpation and Yes no CVA tenderness Back/Spine/Pelvis: Back: no CVA tenderness Skin: General skin exam: normal color Rashes: no rashes Neuro: General: patient oriented x3, moves all extremities, no meningeal signs, no focal motor deficits and CN's II-XI intact bilaterally Extrem: General: normal to inspection and no pedal edema Psych: Appearance: grossly normal and well kempt Mental Status: mental status grossly normal Affect: normal affect Attitude: cooperative Thought content: Yes Normal thought content present Course Course Emergency Course: pt was in no resp distress in the ED. no acute cough heard. Reevaluation(s) Reevaluation #1: VSS. Tavera. Date: 04/21/21 Time: 09:29 Vital Signs Vital signs: Vital Signs Temperature 36.3 C L 04/21/21 08:43 Pulse Rate 72 04/21/21 08:43 Respiratory Rate 16 04/21/21 08:43 Blood Pressure 140/53 L 04/21/21 08:43 Pulse Oximetry 100 04/21/21 08:43 Temperature 36.8 C 04/21/21 10:03 Puls
[2021-04-21 10:03] VITALS: BP 120/51; PULSE 70; RESP 16; TEMP 36.8; O2SAT 98
== END 2021-04-21 10:13 | disposition home or self-care (01) ==
PROVIDERS: Emergency Provider Emergency Medicine; PCP Internal Medicine
DX: U07.1 COVID-19 (principal); J40 Bronchitis, not specified as acute or chronic
CPT/HCPCS: 87426; 99283; C9803

== ENCOUNTER 2021-04-24 10:04 | Outpatient (CLI) | payer MEDICARE, SELFPAY ==
--- NOTE | 2021-04-24 10:15 | PC.NURSE ---
Pt to room 211 amb. A&Ox3. Infusion plan of care explained. Pt read and signed consent. Has no questions or complaints. Oriented to room. Call shepard in reach. Reminded to call us with needs.
[2021-04-24 10:35] VITALS: BP 136/42; PULSE 57; RESP 20; O2SAT 99
[2021-04-24] MEDS: ACETAMINOPHEN 325 MG TABLET 650 MG PO (10:39)
[2021-04-24] MEDS: diphenhydrAMINE HCl CAP 25 MG CAPSULE PO (10:39)
[2021-04-24] MEDS: FAMOTIDINE 20 MG TABLET PO (10:39)
--- NOTE | 2021-04-24 11:45 | PC.NURSE ---
Pt has on complaints. Tolerated infusion well. Discharged to home amb per self.
== END 2021-04-24 10:05 | disposition home or self-care (01) ==
PROVIDERS: PCP Internal Medicine; Visit Provider Internal Medicine
DX: U07.1 COVID-19 (principal); E11.9 Type 2 diabetes mellitus without complications; I10 Essential (primary) hypertension; J44.9 Chronic obstructive pulmonary disease, unspecified
CPT/HCPCS: A9270; M0247; Q0247

== ENCOUNTER 2021-05-01 07:20 | Outpatient (CLI) | payer MEDICARE, SELFPAY ==
[2021-05-01 07:45] LABS: Basophils Absolute Auto 0.02 K/mm3 (0.00-0.10); Basophils Percent Auto 0.4 % (0.0-1.0); Eosinophils Absolute Auto 0.18 K/mm3 (0.02-0.50); Eosinophils Percent Auto 3.8 % (1.0-6.0); Hemoglobin 9.7 g/dL (11.7-13.8); Immature Granulocyte Absolute 0.01 K/mm3 (0.00-0.00); Immature Granulocyte Percent A 0.2 % (0.0-0.0); Immature Platelet Fraction Pct 5.5 % (1.0-7.0); Lymphocytes Absolute Auto 1.54 K/mm3 (1.10-4.50); Lymphocytes Percent Auto 32.4 % (18.0-42.0); Mean Corpuscular HGB Conc 32.3 g/dL (32.0-36.0); Mean Corpuscular Volume 89.6 fL (78.0-102.0); Mean Platelet Volume 12.6 fl (9.2-11.8); Monocytes Absolute Auto 0.41 K/mm3 (0.10-0.90); Monocytes Percent Auto 8.6 % (2.0-11.0); Neutrophils Absolute Auto 2.6 K/mm3 (1.7-7.2); Neutrophils Percent Auto 54.6 % (50.0-70.0); Platelet Count Result 54 K/mm3 (150-420); Red Blood Count 3.35 M/mm3 (4.20-5.40); Red Cell Distribution Width 15.8 % (11.6-14.4); White Blood Count 4.8 K/mm3 (4.8-10.8)
[2021-05-01 07:59] LABS: Hemoglobin A1C 9.2 % (<5.7)
[2021-05-01 09:14] LABS: Alanine Aminotransferase 53 U/L (14-59); Albumin Level 3.4 g/dL (3.4-5.0); Alkaline Phosphatase 104 U/L (46-116); Anion Gap 11 mmol/L (8-16); Aspartate Amino Transferase 35 U/L (15-37); Bilirubin,Total 0.3 mg/dL (0.00-1.00); Blood Urea Nitrogen 26 mg/dL (7-18); Calcium 9.1 mg/dL (8.5-10.1); Carbon Dioxide 26 mmol/L (21-32); Chloride 103 mmol/L (98-108); Cholesterol 165 mg/dL (0-200); Estimated Glomerular Filt Rate 43; Glucose 208 mg/dL (70-99); HDL Direct 38 mg/dL (40-60); LDL Cholesterol Calculated 80 mg/dL (<130); Osmolality Calculated 300 mOsm/kg (285-295); Potassium 3.9 mmol/L (3.5-5.1); Sodium 140 mmol/L (136-145); Thyroid Stimulating Hormone 6.73 uIU/mL (0.36-3.74); Total Protein 6.6 g/dL (6.4-8.2); Triglycerides 237 mg/dL (0-150)
[2021-05-04 11:59] LABS: Immunoglobulin A 114 mg/dL (70-320); Immunoglobulin G 727 mg/dL (600-1540); Immunoglobulin M 279 mg/dL (50-300)
== END 2021-05-01 07:21 | disposition home or self-care (01) ==
LOC: CHSLAB 07:27
PROVIDERS: PCP Internal Medicine; Visit Provider Internal Medicine Pulmonary Disease
DX: E11.9 Type 2 diabetes mellitus without complications (principal); E78.5 Hyperlipidemia, unspecified; I10 Essential (primary) hypertension; D80.1 Nonfamilial hypogammaglobulinemia
CPT/HCPCS: 36415; 80053; 80061; 82784; 83036; 84443; 85025; 85055

== ENCOUNTER 2021-05-07 07:05 | Outpatient (CLI) | payer MEDICARE, SELFPAY ==
[2021-05-07 07:20] LABS: Basophils Absolute Auto 0.04 K/mm3 (0.00-0.10); Basophils Percent Auto 0.7 % (0.0-1.0); Eosinophils Absolute Auto 0.21 K/mm3 (0.02-0.50); Eosinophils Percent Auto 3.7 % (1.0-6.0); Hematocrit 31.7 % (35.0-42.0); Hemoglobin 10.1 g/dL (11.7-13.8); Immature Granulocyte Absolute 0.02 K/mm3 (0.00-0.00); Immature Granulocyte Percent A 0.4 % (0.0-0.0); Immature Platelet Fraction Pct 5.2 % (1.0-7.0); Lymphocytes Absolute Auto 1.46 K/mm3 (1.10-4.50); Lymphocytes Percent Auto 25.9 % (18.0-42.0); Mean Corpuscular HGB Conc 31.9 g/dL (32.0-36.0); Mean Corpuscular Volume 91.1 fL (78.0-102.0); Mean Platelet Volume 12.1 fl (9.2-11.8); Monocytes Absolute Auto 0.43 K/mm3 (0.10-0.90); Monocytes Percent Auto 7.6 % (2.0-11.0); Neutrophils Absolute Auto 3.5 K/mm3 (1.7-7.2); Neutrophils Percent Auto 61.7 % (50.0-70.0); Platelet Count Result 51 K/mm3 (150-420); Red Blood Count 3.48 M/mm3 (4.20-5.40); Red Cell Distribution Width 16.1 % (11.6-14.4); White Blood Count 5.6 K/mm3 (4.8-10.8)
[2021-05-07 08:40] LABS: Alanine Aminotransferase 54 U/L (14-59); Albumin Level 3.5 g/dL (3.4-5.0); Alkaline Phosphatase 114 U/L (46-116); Anion Gap 13 mmol/L (8-16); Aspartate Amino Transferase 46 U/L (15-37); Bilirubin,Total 0.3 mg/dL (0.00-1.00); Blood Urea Nitrogen 23 mg/dL (7-18); Calcium 8.9 mg/dL (8.5-10.1); Carbon Dioxide 26 mmol/L (21-32); Chloride 102 mmol/L (98-108); Estimated Glomerular Filt Rate 43; Glucose 286 mg/dL (70-99); Osmolality Calculated 305 mOsm/kg (285-295); Potassium 4.2 mmol/L (3.5-5.1); Sodium 141 mmol/L (136-145); Total Protein 6.7 g/dL (6.4-8.2)
[2021-05-08 14:46] LABS: Lactate Dehydrogenase 211 U/L (81-234)
== END 2021-05-07 07:06 | disposition home or self-care (01) ==
LOC: CHSLAB 07:07
PROVIDERS: PCP Internal Medicine; Visit Provider Internal Medicine Hematology & Oncology
DX: C83.00 Small cell B-cell lymphoma, unspecified site (principal); D69.6 Thrombocytopenia, unspecified
CPT/HCPCS: 36415; 80053; 83615; 85025; 85055

== ENCOUNTER 2021-05-21 12:54 | Emergency (ER) | payer MEDICARE, SELFPAY ==
--- NOTE | ~2021-05-21 | XR_ITS ---
XR pelvis 1-2V 05/21/2021 14:51 Indication: Pelvic pain after fall Procedure: AP pelvis Comparison: 02/05/2019 and 11/30/2015 Findings: Pelvic rings are intact. There is mild osteoarthritis of the hips. There is lower lumbar sp ondylosis. Pelvic rings are intact. There are extensive femoral vascular calcifications. No acute fra cture or traumatic malalignment. Impression: 1: No acute fracture. Reviewed, dictated and finalized at location A. Impression: 1: No acute fracture.
--- NOTE | ~2021-05-21 | XR_ITS ---
EXAMINATION: XR hand LT min 3V DATE: 05/21/2021 14:51 INDICATION: Hand pain at the second-fifth digits post fall TECHNIQUE: Posteroanterior, oblique and lateral views of the left hand were obtained. COMPARISON: None. FINDINGS: Diffuse osteopenia which decreases sensitivity for nondisplaced fracture. Nondisplaced oblique extra articular fracture extending across the diaphysis of the left fourth proximal phalanx. Alignment leydi ins essentially anatomic. No other fractures identified. Normal variant lunotriquetral coalition. Cho ndrocalcinosis at the left wrist joint. Mild polyarticular osteoarthritis at the distal radioulnar, r adiocarpal, midcarpal, triscaphe, first and second carpometacarpal and majority of the metacarpal pha langeal and interphalangeal joints. IMPRESSION: 1. Nondisplaced extra articular fracture of the left fourth proximal phalangeal diaphysis. Reviewed, dictated and finalized at location A.
--- NOTE | ~2021-05-21 | XR_ITS ---
EXAMINATION: XR shoulder RT min 2V INDICATION: Right shoulder pain after fall TECHNIQUE: Three views of the right shoulder are submitted. COMPARISON: None FINDINGS: There appears to be a nondisplaced greater tuberosity fracture of the right humeral head. N o additional acute osseous findings are evident. There is moderate osteoarthritis at the acromioclavi cular joint. Glenohumeral and acromioclavicular joint spaces are normal. Soft tissues are unremarkabl e. IMPRESSION: 1. Possible nondisplaced greater tuberosity fracture of the right humeral head. Consider further eval uation with CT. Reviewed, dictated and finalized at location B. IMPRESSION: 1. Possible nondisplaced greater tuberosity fracture of the right humeral head. Consider further evaluation with CT.
--- NOTE | ~2021-05-21 | XR_ITS ---
XR chest 1V portable 05/21/2021 14:50 Indication: Status post fall. Right chest pain. Procedure: AP portable chest Comparison: Comparison to multiple prior studies sequentially, with oldest reviewed study dated 07/15. Findings: There is chronic right perihilar atelectasis/scarring unchanged. No focal air space disease , pulmonary edema, pleural effusion or suspected pneumothorax. Heart size is normal. No acute osseous abnormality. Impression: 1: No acute cardiopulmonary disease. Reviewed, dictated and finalized at location A. Impression: 1: No acute cardiopulmonary disease.
--- NOTE | ~2021-05-21 | CT_ITS ---
EXAMINATION: CT cervical spine wo con EXAM DATE: 05/21/2021 14:44 INDICATION: fall today. Head injury. TECHNIQUE: Spiral CT of the cervical spine was performed without contrast. Axial images were reviewe d. Coronal and sagittal reformatted images cervical spine were also reviewed. The dose-length produc t (DLP) for this examination was 397.02 mGy-cm. The exposure was tailored according to patient size (auto mA exposure control), and iterative reconstruction (ASIR) was used as additional dose reduction technique. There is no prior study for comparison. FINDINGS: Completely opacified maxillary sinuses, with hyperdense material which could be mucous rete ntion cysts, polyposis, or sinusitis. There is no evidence of acute cervical fracture. The odontoid process is intact. Pre-dens space is normal. Prevertebral soft tissue is normal. There are no soft tissue abnormalities identified. There is no disc space widening or traumatic vertebral body sublux ation suspected. There is moderate cervical spondylosis. A detailed level by level evaluation of spon dylosis can be added as addendum if requested. IMPRESSION: 1. No acute cervical fracture. 2. Moderate cervical spondylosis. 3. Opacified maxillary sinuses, mucous retention cysts polyposis or sinusitis. Reviewed, dictated and finalized at location G.
--- NOTE | ~2021-05-21 | CT_ITS ---
EXAMINATION: CT brain wo con DATE: 05/21/2021 14:44 INDICATION: Anterior left head injury post fall TECHNIQUE: Computed tomography (CT) of the head was performed without intravenous contrast. Sagittal and coronal reconstructions were performed. The mA was adjusted according to patient size. Iterative reconstruction technique was employed. The dose-length product was 529.67 mGy-cm. COMPARISON: head CT dated 05/19/2012 and brain MR dated 11/02/2019 FINDINGS: Small subcutaneous hematoma along the superior rim of the left orbit. No fracture. No acute intracran ial hemorrhage, acute infarction or abnormal extra axial fluid collection. There is mild scattered wh ite matter hypoattenuation consistent with chronic small vessel ischemic disease. Symmetric prominenc e of the sulci consistent with mild age-appropriate diffuse cerebral volume loss. Ventricles are norm al and symmetric. No mass/mass effect. Near complete opacification of the visualized portions of the paranasal sinuses on both the left and right. The orbits and mastoid air cells are normal. Intracrani al calcified cerebral atherosclerosis is noted. IMPRESSION: 1. No fracture or acute intracranial process. 2. Age-related changes including mild diffuse volume loss and mild scattered white matter hypoattenua tion consistent with chronic small vessel ischemic disease. 3. Sinus disease with near complete opacification of the visualized paranasal sinuses. Reviewed, dictated and finalized at location A. IMPRESSION: 1. No fracture or acute intracranial process. 2. Age-related changes including mild diffuse volume loss and mild scattered wh ite matter hypoattenuation consistent with chronic small vessel ischemic diseas e. 3. Sinus disease with near complete opacification of the visualized paranasal s inuses.
[2021-05-21 13:05] VITALS: BP 145/71; PULSE 61; RESP 16; TEMP 36.5; O2SAT 97
--- NOTE | 2021-05-21 13:23 | ED.FALL ---
HPI - Fall General Chief Complaint: Fall Stated Complaint: hit head/R shoulder arm fingers pain Time Seen by Provider: 05/21/21 13:23 Source: patient History of Present Illness HPI Narrative: 76-year-old female fell in her yd 2 hours ago and presents to the ER with -- multiple facial bruising/abrasion with skin loss over her left cheek and nose -- no loss of consciousness. After the fall she lay on the floor for 30 minutes before she was able to get up and call her neighbor -- right shoulder pain with decreased range motion -- left hand pain especially 2/3/4 fingers complaint: fall Onset (ago): hour(s) ( 2 hours ago) Fall from: standing Fall witnessed: no Place fall occurred: home Loss of consciousness: none Prolonged down time: no Symptoms prior to fall: none Context: tripped/slipped Location of injury: face Location of injury - extremities: Left: hand and Right: shoulder Associated symptoms (after fall): denies Related Data Home Medications Medication Instructions Recorded Confirmed Novolin N NPH U-100 Insulin See Rx Instructions .ROUTE .COMPLEX 04/05/20 05/21/21 allopurinol 100 mg BID 04/05/20 05/21/21 budesonide-formoterol 2 puff INHALATION BID 04/05/20 05/21/21 carvedilol 25 mg BID 04/05/20 05/21/21 hydrochlorothiazide 25 mg QAM 04/05/20 05/21/21 memantine 10 mg BID 04/05/20 05/21/21 montelukast 10 mg QAM 04/05/20 05/21/21 omeprazole 40 mg QAM 04/05/20 05/21/21 simvastatin 20 mg PO HS 04/05/20 05/21/21 Allergies Allergy/AdvReac Type Severity Reaction Status Date / Time No Known Allergies Allergy Verified 05/21/21 13:35 Review of Systems Review of Systems: All systems reviewed & are unremarkable except as noted in HPI and below Constitutional: Constitutional: Reports as per HPI and Reports no additional constitutional complaints Eyes: Eyes: Reports as per HPI and Reports no additional eye complaints ENT: Reports system reviewed and no additional complaints, except as documented and Reports as per HPI Cardiovascular: Cardiovascular: Reports as per HPI and Reports no additional cardiovascular complaints Respiratory: Respiratory: Reports as per HPI and Reports no additional respiratory complaints Gastrointestinal: Gastrointestinal: Reports as per HPI and Reports no additional gastrointestinal complaints Genitourinary: Genitourinary: Reports no additional female genitourinary complaints Musculoskeletal: Comments: right shoulder and left hand pain Integumentary/Breasts: Comments: facial abrasion and skin loss over the nose and left cheek Neurologic: Reports system reviewed and no additional complaints, except as documented Psychiatric: Psychiatric: Reports no additional psychiatric complaints Endocrine: Endocrine: Reports no additional endocrine complaints and Reports as per HPI Hematologic/Lymphatic: Hematologic/Lymphatic: Reports no additional hematologic/lymphatic complaints and Reports as per HPI Allergic/Immunologic: Allergic/Immunologic: Reports no additional allergic/immunologic complaints and Reports as per HPI [facility] Past Medical History Medical History Bronchitis Cellulitis of left hand Social History Social History Smoking status: Never smoker Second hand tobacco smoke exposure: No Alcohol intake: never Substance use: never Substance use type: does not use Spiritual care concerns: No Exam Const: General: no acute distress and alert Orientation/consciousness: patient oriented x3 HENMT: Head: normal to inspection Head images: 1. 0.5 cm skin loss over the nose along with abrasion 2. abrasion on the forehead 3. abrasion on the left forehead 4. abrasion over left Pagett with skin loss 5. Ears: TM abnormal Mouth: Yes lip normal and Yes dry mucous membranes Eyes: Conjunctivae: conjunctivae normal Pupils: Equal, round and reactive pupils
[2021-05-21] MEDS: TETANUS,DIPHTHERIA,AC PERTUSSIS ADULT 0.5 ML (ADACEL) IM (14:46)
[2021-05-21 14:53] VITALS: BP 136/70; PULSE 60; RESP 16; TEMP 36.2; O2SAT 98
[2021-05-21] MEDS: ACETAMINOPHEN 325 MG TABLET 650 MG PO (15:14)
--- NOTE | 2021-05-21 16:10 | PC.NURSE ---
daughter at bedside. left 4th and 5th fingers grant taped.
[2021-05-21 16:34] VITALS: BP 132/72; PULSE 67; RESP 16; TEMP 36.5; O2SAT 97
== END 2021-05-21 16:35 | disposition home or self-care (01) ==
PROVIDERS: Emergency Provider Internal Medicine Critical Care Medicine; PCP Internal Medicine
DX: S42.254A Nondisplaced fracture of greater tuberosity of right humerus, initial encounter for closed fracture (principal); S62.645A Nondisplaced fracture of proximal phalanx of left ring finger, initial encounter for closed fracture; S09.90XA Unspecified injury of head, initial encounter; S00.81XA Abrasion of other part of head, initial encounter; W19.XXXA Unspecified fall, initial encounter
CPT/HCPCS: 70450; 71045; 72125; 72170; 73030; 73130; 90471; 90715; 99284; A4565; A9270

== ENCOUNTER 2021-05-24 14:35 | Outpatient (CLI) | payer MEDICARE, SELFPAY ==
--- NOTE | ~2021-05-24 | XR_ITS ---
EXAMINATION: XR ankle LT min 3V EXAM DATE: 05/24/2021 14:57 INDICATION: Left lateral ankle pain after rolling yesterday. TECHNIQUE: Left ankle frontal, lateral and oblique projections obtained and reviewed. Comparison is m joon to prior examination from 08/02/2016. FINDINGS: There is acute nondisplaced fracture at the base of the left 5th metatarsal bone which was not present on previous examination. Uncertain whether or not this is an avulsion or Ortiz type fract ure. There are 2 wires bridging a medial malleolar fracture. There is a jett within the distal aspect of th e fibula. There is severe left ankle joint osteoarthritis probably secondary to prior trauma. There i s moderate inferior calcaneal spur. IMPRESSION: 1. Acute left 5th metatarsal base fracture. 2. Severe left ankle joint osteoarthritis. Reviewed, dictated and finalized at location .
== END 2021-05-24 14:36 | disposition home or self-care (01) ==
LOC: CHSIMG 14:37
PROVIDERS: PCP Internal Medicine; Visit Provider Internal Medicine
DX: M25.572 Pain in left ankle and joints of left foot (principal)
CPT/HCPCS: 73610

== ENCOUNTER 2021-05-29 15:07 | Outpatient (CLI) | payer MEDICARE, SELFPAY ==
[2021-05-29 15:58] LABS: SARS-CoV-2 RNA PCR Positive (Negative)
== END 2021-05-29 15:08 | disposition home or self-care (01) ==
LOC: CHSLAB 15:11
PROVIDERS: PCP Internal Medicine; Visit Provider Internal Medicine
DX: U07.1 COVID-19 (principal)
CPT/HCPCS: C9803; U0003; U0005

== ENCOUNTER 2021-06-04 09:25 | Outpatient (CLI) | payer MEDICARE, SELFPAY ==
[2021-06-04 10:02] LABS: SARS-CoV-2 Ag Negative (Negative)
== END 2021-06-04 09:26 | disposition home or self-care (01) ==
LOC: CHSLAB 09:27
PROVIDERS: PCP Internal Medicine; Visit Provider Internal Medicine
DX: Z20.822 Contact with and (suspected) exposure to COVID-19 (principal)
CPT/HCPCS: 87426; C9803

== ENCOUNTER 2021-08-06 07:30 | Outpatient (CLI) | payer MEDICARE, SELFPAY ==
[2021-08-06 08:00] LABS: Basophils Absolute Auto 0.03 K/mm3 (0.00-0.10); Basophils Percent Auto 0.6 % (0.0-1.0); Eosinophils Absolute Auto 0.19 K/mm3 (0.02-0.50); Eosinophils Percent Auto 3.8 % (1.0-6.0); Hematocrit 29.5 % (35.0-42.0); Hemoglobin 9.3 g/dL (11.7-13.8); Immature Granulocyte Absolute 0.02 K/mm3 (0.00-0.00); Immature Granulocyte Percent A 0.4 % (0.0-0.0); Immature Platelet Fraction Pct 2.7 % (1.0-7.0); Lymphocytes Absolute Auto 1.25 K/mm3 (1.10-4.50); Lymphocytes Percent Auto 24.9 % (18.0-42.0); Mean Corpuscular HGB Conc 31.5 g/dL (32.0-36.0); Mean Corpuscular Hemoglobin 28.6 pg (27.0-31.0); Mean Corpuscular Volume 90.8 fL (78.0-102.0); Mean Platelet Volume 10.8 fl (9.2-11.8); Monocytes Absolute Auto 0.48 K/mm3 (0.10-0.90); Monocytes Percent Auto 9.5 % (2.0-11.0); Neutrophils Absolute Auto 3.1 K/mm3 (1.7-7.2); Neutrophils Percent Auto 60.8 % (50.0-70.0); Platelet Count Result 55 K/mm3 (150-420); Red Blood Count 3.25 M/mm3 (4.20-5.40); Red Cell Distribution Width 15.8 % (11.6-14.4)
[2021-08-06 08:31] LABS: Alanine Aminotransferase 31 U/L (14-59); Albumin Level 3.5 g/dL (3.4-5.0); Alkaline Phosphatase 102 U/L (46-116); Anion Gap 10 mmol/L (8-16); Aspartate Amino Transferase 30 U/L (15-37); Bilirubin,Total 0.4 mg/dL (0.00-1.00); Blood Urea Nitrogen 21 mg/dL (7-18); Carbon Dioxide 26 mmol/L (21-32); Chloride 104 mmol/L (98-108); Estimated Glomerular Filt Rate 43; Glucose 171 mg/dL (70-99); Lactate Dehydrogenase 178 U/L (81-234); Osmolality Calculated 297 mOsm/kg (285-295); Potassium 4.2 mmol/L (3.5-5.1); Sodium 140 mmol/L (136-145)
[2021-08-06 08:41] LABS: Hemoglobin A1C 8.6 % (<5.7)
== END 2021-08-06 07:31 | disposition home or self-care (01) ==
LOC: CHSLAB 07:36
PROVIDERS: PCP Internal Medicine; Visit Provider Internal Medicine Hematology & Oncology
DX: E11.9 Type 2 diabetes mellitus without complications (principal); C83.00 Small cell B-cell lymphoma, unspecified site; D69.6 Thrombocytopenia, unspecified
CPT/HCPCS: 36415; 80053; 83036; 83615; 85025; 85055

== ENCOUNTER 2021-08-17 12:05 | Outpatient (CLI) | payer MEDICARE, SELFPAY ==
--- NOTE | ~2021-08-17 | CT_ITS ---
EXAMINATION: CT abdomen pelvis wo con DATE: 08/17/2021 12:28 INDICATION: Splenomegaly. TECHNIQUE: Computed tomography (CT) of the abdomen and pelvis was performed without intravenous contr ast. Automated exposure control and iterative reconstruction technique were employed. The dose-length product was 627.96 mGy-cm. COMPARISON: CT abdomen and pelvis 01/24/2021, 03/18/16 FINDINGS: The visualized portions of the lungs bases demonstrate mild atelectasis and mild chronic court ng disease. There is mild bronchiectasis bilaterally. Again seen is a cluster of tree-in-bud opacitie s in right middle lobe, likely chronic infection. No pleural effusion. The heart size is normal. Ther e are coronary artery calcifications. No pericardial effusion. Calcified paraesophageal lymph nodes a re consistent with old granulomas disc disease. Calcifications in the liver and spleen are consistent with old granulomatous disease. Again seen is moderate splenomegaly. The gallbladder is absent. The spleen and right adrenal gland are normal. There is a 2.5 cm mass in left adrenal gland measuring sof t tissue attenuation without change in size, consistent with an adenoma. The kidneys are normal. Ther e is diverticulosis of the colon without evidence of diverticulitis. There are no dilated loops of lena wel. The appendix is not visualized. There is a 2.2 x 1.4 cm periportal lymph node. There is a 1.7 x 1.3 cm right external iliac lymph node. There is no free intraperitoneal fluid. There is a right ingu inal hernia containing fat. There is severe thoracic spondylosis. There is a chronic compression frac ture of T12. IMPRESSION: 1. Stable moderate splenomegaly. 2. Stable mildly enlarged periportal and right external iliac lymph nodes, which may be reactive lymp hadenopathy or lymphoma. Reviewed, dictated and finalized at location B. IMPRESSION: 1. Stable moderate splenomegaly. 2. Stable mildly enlarged periportal and right external iliac lymph nodes, whic h may be reactive lymphadenopathy or lymphoma.
== END 2021-08-17 12:06 | disposition home or self-care (01) ==
LOC: CHSIMG 12:06
PROVIDERS: PCP Internal Medicine
DX: R16.1 Splenomegaly, not elsewhere classified (principal); D69.6 Thrombocytopenia, unspecified
CPT/HCPCS: 74176

== ENCOUNTER 2021-09-05 07:15 | Outpatient (RCR) | payer MEDICARE, SELFPAY ==
[2021-06-14 13:05] LABS: Immunoglobulin A 186 mg/dL (70-320); Immunoglobulin G 956 mg/dL (600-1540); Immunoglobulin M 254 mg/dL (50-300)
[2021-07-18 11:41] LABS: Immunoglobulin A 107 mg/dL (70-320); Immunoglobulin G 668 mg/dL (600-1540); Immunoglobulin M 273 mg/dL (50-300)
[2021-09-07 11:34] LABS: Immunoglobulin A 159 mg/dL (70-320); Immunoglobulin G 793 mg/dL (600-1540); Immunoglobulin M 307 mg/dL (50-300)
== END 2021-09-09 23:59 | disposition home or self-care (01) ==
LOC: CHSLAB 07:15
PROVIDERS: PCP Internal Medicine; Visit Provider Internal Medicine Pulmonary Disease
DX: D83.9 Common variable immunodeficiency, unspecified (principal)
CPT/HCPCS: 36415; 82784

== ENCOUNTER 2021-10-16 09:34 | Outpatient (CLI) | payer MEDICARE, SELFPAY ==
--- NOTE | ~2021-10-16 | CT_ITS ---
EXAMINATION: CT abdomen pelvis wo con DATE: 10/16/2021 09:56 INDICATION: Splenomegaly. Thrombocytopenia. TECHNIQUE: Computed tomography (CT) of the abdomen and pelvis was performed without intravenous contr ast. The dose-length product was 591.58 mGy-cm. Automated exposure control and iterative reconstructi on technique were employed. COMPARISON: CT dated 08/17/2021. FINDINGS: There are reticulonodular densities in the right middle lobe and lingula with areas of tree -in-bud configuration. Heart size normal. There is asymmetric soft tissue in the left breast. There a re surgical changes medially in the left breast. There are calcified granulomas in the liver and sple en. There is splenomegaly. Spleen measures 15.3 cm. There are calcified granulomas of the liver. Gall bladder not identified, likely surgically absent. The pancreas, right adrenal gland and kidneys are u nremarkable. Stable 2.5 cm left adrenal mass, most likely benign adenoma. Nonobstructive bowel gas pa ttern. Chronic compression fracture of T12. Severe lumbar spondylosis. Stable periportal, right exter nal iliac and obturator lymph nodes IMPRESSION: 1. Stable splenomegaly. 2: Stable abdominal and pelvic lymphadenopathy which may be reactive for lymphoma. Reviewed, dictated and finalized at location B. IMPRESSION: 1. Stable splenomegaly. 2: Stable abdominal and pelvic lymphadenopathy which may be reactive for lymph esteban.
== END 2021-10-16 09:35 | disposition home or self-care (01) ==
LOC: CHSIMG 09:36
PROVIDERS: PCP Internal Medicine
DX: R16.1 Splenomegaly, not elsewhere classified (principal); D69.6 Thrombocytopenia, unspecified
CPT/HCPCS: 74176

== ENCOUNTER 2021-11-05 07:13 | Outpatient (CLI) | payer MEDICARE, SELFPAY ==
[2021-11-05 07:30] LABS: Hemoglobin 9.4 g/dL (11.7-13.8); Immature Platelet Fraction Pct 5.2 % (1.0-7.0); Mean Corpuscular HGB Conc 32.4 g/dL (32.0-36.0); Mean Corpuscular Hemoglobin 29.3 pg (27.0-31.0); Mean Corpuscular Volume 90.3 fL (78.0-102.0); Mean Platelet Volume 11.9 fl (9.2-11.8); Platelet Count Result 48 K/mm3 (150-420); Red Blood Count 3.21 M/mm3 (4.20-5.40); Red Cell Distribution Width 15.9 % (11.6-14.4); White Blood Count 4.9 K/mm3 (4.8-10.8)
[2021-11-05 07:48] LABS: Alanine Aminotransferase 36 U/L (14-59); Albumin Level 3.4 g/dL (3.4-5.0); Alkaline Phosphatase 110 U/L (46-116); Anion Gap 11 mmol/L (8-16); Aspartate Amino Transferase 41 U/L (15-37); Bilirubin,Total 0.3 mg/dL (0.00-1.00); Blood Urea Nitrogen 24 mg/dL (7-18); Calcium 9.2 mg/dL (8.5-10.1); Carbon Dioxide 26 mmol/L (21-32); Chloride 101 mmol/L (98-108); Estimated Glomerular Filt Rate 40; Glucose 132 mg/dL (70-99); Lactate Dehydrogenase 180 U/L (81-234); Osmolality Calculated 292 mOsm/kg (285-295); Potassium 3.7 mmol/L (3.5-5.1); Sodium 138 mmol/L (136-145); Total Protein 7.5 g/dL (6.4-8.2)
[2021-11-05 08:30] LABS: Band Neutrophils Percent 0 % (0-6); Lymphocytes Absolute Manual 1.66 K/mm3 (1.1-4.5); Lymphocytes Percent Manual 34 % (18-44); Neutrophils Absolute Manual 2.79 K/mm3 (1.7-7.2); Neutrophils Percent Manual 57 % (46-73); Total Cells Counted 100
[2021-11-05 08:31] LABS: Basophils Absolute Manual 0.04 K/mm3 (0-0.1); Basophils Percent Manual 1 % (0-1); Eosinophils Absolute Manual 0.14 K/mm3 (0.02-0.5); Eosinophils Percent Manual 3 % (1-6); Monocytes Absolute Manual 0.24 K/mm3 (0.1-0.90); Monocytes Percent Manual 5 % (3-9); Platelet Estimate Decreased (Adequate)
== END 2021-11-05 07:14 | disposition home or self-care (01) ==
LOC: CHSLAB 07:15
PROVIDERS: PCP Internal Medicine; Visit Provider Internal Medicine Hematology & Oncology
DX: C83.00 Small cell B-cell lymphoma, unspecified site (principal)
CPT/HCPCS: 36415; 80053; 83615; 85025; 85055

== ENCOUNTER 2021-12-04 07:21 | Outpatient (CLI) | payer MEDICARE, SELFPAY ==
[2021-12-04 07:59] LABS: Alanine Aminotransferase 36 U/L (14-59); Albumin Level 3.5 g/dL (3.4-5.0); Alkaline Phosphatase 103 U/L (46-116); Anion Gap 10 mmol/L (8-16); Aspartate Amino Transferase 38 U/L (15-37); Bilirubin,Total 0.4 mg/dL (0.00-1.00); Blood Urea Nitrogen 24 mg/dL (7-18); Calcium 8.9 mg/dL (8.5-10.1); Carbon Dioxide 27 mmol/L (21-32); Chloride 105 mmol/L (98-108); Estimated Glomerular Filt Rate 44; Glucose 160 mg/dL (70-99); Osmolality Calculated 301 mOsm/kg (285-295); Potassium 3.9 mmol/L (3.5-5.1); Sodium 142 mmol/L (136-145); Total Protein 7.2 g/dL (6.4-8.2)
[2021-12-04 08:34] LABS: Hemoglobin A1C 8.6 % (<5.7)
== END 2021-12-04 07:22 | disposition home or self-care (01) ==
LOC: CHSLAB 07:23
PROVIDERS: PCP Internal Medicine; Visit Provider Internal Medicine
DX: N18.30 Chronic kidney disease, stage 3 unspecified (principal); E11.9 Type 2 diabetes mellitus without complications
CPT/HCPCS: 36415; 80053; 83036

== ENCOUNTER 2022-01-01 07:32 | Outpatient (RCR) | payer MEDICARE, SELFPAY ==
[2021-10-16 21:26] LABS: Immunoglobulin A 235 mg/dL (70-320); Immunoglobulin G 901 mg/dL (600-1540); Immunoglobulin M 339 mg/dL (50-300)
[2021-11-21 11:48] LABS: Immunoglobulin A 301 mg/dL (70-320); Immunoglobulin G 912 mg/dL (600-1540); Immunoglobulin M 375 mg/dL (50-300)
[2022-01-04 10:42] LABS: Immunoglobulin A 323 mg/dL (70-320); Immunoglobulin G 984 mg/dL (600-1540); Immunoglobulin M 384 mg/dL (50-300)
== END 2022-01-10 23:59 | disposition home or self-care (01) ==
LOC: CHSLAB 07:32
PROVIDERS: PCP Internal Medicine; Visit Provider Internal Medicine Pulmonary Disease
DX: D83.9 Common variable immunodeficiency, unspecified (principal)
CPT/HCPCS: 36415; 82784

== ENCOUNTER 2022-01-02 08:38 | Outpatient (CLI) | payer MEDICARE, SELFPAY ==
--- NOTE | ~2022-01-02 | MM_ITS ---
EXAMINATION: MM screening justyn BI w juliane HISTORY: Screening TECHNIQUE: Craniocaudal and mediolateral oblique 3-D tomosynthesis images were obtained and synthetic 2-D images were generated. CAD analysis was submitted and interpreted. COMPARISON: Comparison to multiple prior studies sequentially, with oldest reviewed study dated 10/16. BREAST PARENCHYMAL COMPOSITION: The breasts are heterogeneously dense, which may obscure small masses . FINDINGS: There is asymmetry of the left breast consistent with previous lumpectomy and radiation the rapy. No new masses, calcifications, suspicious architectural distortion or significant changes from prior examination to suggest malignancy. IMPRESSION: 1. No mammographic evidence of malignancy. 2. Recommend routine screening mammography in one year. BI-RADS Category 2: Benign finding(s). Reviewed, dictated and finalized at location A.
== END 2022-01-02 08:39 | disposition home or self-care (01) ==
LOC: CHSIMG 08:40
PROVIDERS: PCP Internal Medicine
DX: Z12.31 Encounter for screening mammogram for malignant neoplasm of breast (principal)
CPT/HCPCS: 77063; 77067

== ENCOUNTER 2022-01-28 07:30 | Outpatient (CLI) | payer MEDICARE, SELFPAY ==
[2022-01-28 07:43] LABS: Hematocrit 28.3 % (35.0-42.0); Hemoglobin 8.9 g/dL (11.7-13.8); Immature Platelet Fraction Pct 4.5 % (1.0-7.0); Mean Corpuscular HGB Conc 31.4 g/dL (32.0-36.0); Mean Corpuscular Hemoglobin 28.8 pg (27.0-31.0); Mean Corpuscular Volume 91.6 fL (78.0-102.0); Mean Platelet Volume 11.9 fl (9.2-11.8); Platelet Count Result 43 K/mm3 (150-420); Red Blood Count 3.09 M/mm3 (4.20-5.40); Red Cell Distribution Width 15.9 % (11.6-14.4); White Blood Count 4.8 K/mm3 (4.8-10.8)
[2022-01-28 08:14] LABS: Band Neutrophils Percent 0 % (0-6); Basophils Percent Manual 0 % (0-1); Eosinophils Absolute Manual 0.09 K/mm3 (0.02-0.5); Eosinophils Percent Manual 2 % (1-6); Lymphocytes Absolute Manual 2.11 K/mm3 (1.1-4.5); Lymphocytes Percent Manual 44 % (18-44); Monocytes Absolute Manual 0.24 K/mm3 (0.1-0.90); Monocytes Percent Manual 5 % (3-9); Neutrophils Absolute Manual 2.35 K/mm3 (1.7-7.2); Neutrophils Percent Manual 49 % (46-73); Platelet Estimate Decreased (Adequate); Total Cells Counted 100
[2022-01-28 08:59] LABS: Alanine Aminotransferase 37 U/L (14-59); Albumin Level 3.5 g/dL (3.4-5.0); Alkaline Phosphatase 103 U/L (46-116); Aspartate Amino Transferase 44 U/L (15-37); Bilirubin,Total 0.4 mg/dL (0.00-1.00); Blood Urea Nitrogen 28 mg/dL (7-18); Calcium 8.8 mg/dL (8.5-10.1); Chloride 104 mmol/L (98-108); Estimated Glomerular Filt Rate 41; Glucose 118 mg/dL (70-99); Lactate Dehydrogenase 212 U/L (81-234); Osmolality Calculated 298 mOsm/kg (285-295); Potassium 3.9 mmol/L (3.5-5.1); Sodium 141 mmol/L (136-145); Total Protein 7.2 g/dL (6.4-8.2)
[2022-01-28 09:03] LABS: Anion Gap 7 mmol/L (8-16); Carbon Dioxide 30 mmol/L (21-32)
== END 2022-01-28 07:31 | disposition home or self-care (01) ==
LOC: CHSLAB 07:32
PROVIDERS: PCP Internal Medicine; Visit Provider Internal Medicine Hematology & Oncology
DX: C83.00 Small cell B-cell lymphoma, unspecified site (principal)
CPT/HCPCS: 36415; 80053; 83615; 85025; 85055

== ENCOUNTER 2022-03-07 09:55 | Emergency (ER) | payer MEDICARE, SELFPAY ==
[2022-03-07 10:00] VITALS: BP 142/69; PULSE 59; RESP 20; TEMP 37.1; O2SAT 97
[2022-03-07 10:44] LABS: Strep Group A RT-PCR NOT DETECTED (Negative)
[2022-03-07 10:56] LABS: Influenza A QL RT-PCR Negative (Negative); Influenza B QL RT-PCR Negative (Negative); RSV RNA, RT-PCR Negative (Negative); SARS-CoV-2 RNA PCR Positive (Negative)
--- NOTE | 2022-03-07 11:04 | ED.GENADULT ---
HPI - General Adult General Chief complaint: Upper Respiratory Infection Stated complaint: bad cold Time Seen by Provider: 03/07/22 10:04 Source: patient Mode of arrival: ambulatory Limitations: no limitations History of Present Illness HPI narrative: 76-year-old female presents with some cold symptoms with nasal congestion sinus pressure with some mild cough that is nonproductive no shortness of breath no audible wheezing no fever chills no nausea vomiting abdominal pain or chest pain. Patient has symptoms for the last day and call her primary care physician which could not get her in for approximately 1 week. There is no abdominal pain no chest pain no shortness of breath no diarrhea constipation no dysuria. Onset (ago): day(s) Severity: mild Related Data Home Medications Medication Instructions Recorded Confirmed allopurinol 100 mg tablet 100 mg BID 04/05/20 03/07/22 budesonide-formoterol HFA 160 2 puff inhalation BID 04/05/20 03/07/22 mcg-4.5 mcg/actuation aerosol inhaler carvedilol 25 mg tablet 25 mg BID 04/05/20 03/07/22 hydrochlorothiazide 25 mg tablet 25 mg QAM 04/05/20 03/07/22 insulin NPH isoph U-100 human 100 See Rx Instructions .Route .COMPLEX 04/05/20 03/07/22 unit/mL subcutaneous suspension (Novolin N NPH U-100 Insulin isophane) memantine 10 mg tablet 10 mg BID 04/05/20 03/07/22 montelukast 10 mg tablet 10 mg QAM 04/05/20 03/07/22 omeprazole 40 mg capsule,delayed 40 mg QAM 04/05/20 03/07/22 release simvastatin 20 mg tablet 20 mg PO HS 04/05/20 03/07/22 Allergies Allergy/AdvReac Type Severity Reaction Status Date / Time No Known Allergies Allergy Verified 05/21/21 13:35 Review of Systems Review of Systems: All systems reviewed & are unremarkable except as noted in HPI and below PMFSH Past Medical History Medical History Bronchitis Cellulitis of left hand Social History Social History Smoking status: Never smoker Second hand tobacco smoke exposure: No Alcohol intake: never Substance use: never Substance use type: does not use Spiritual care concerns: No Exam Const: General: healthy appearing Nutritional Appearance: well nourished Orientation/consciousness: patient oriented x3 Limitations: no limitations HENMT: Head: normal to inspection Face and sinus: normal facial exam Mouth: Yes Normal oral and palatal mucosa present Teeth and gingiva: dentition normal Eyes: Conjunctivae: conjunctivae normal Neck: Neck: normal visual inspection Chest: Chest palpation & inspection: normal inspection of the chest Resp: Effort & Inspection: normal respiratory effort Auscultation: clear to auscultation bilaterally Cardio: Rate: regular rate Rhythm: regular rhythm GI: GI Palp: Yes Soft to palpation Auscultation: normal bowel sounds : General: Yes bladder normal to palpation Urinary Catheter: Urinary Catheter: patent and draining Back/Spine/Pelvis: Back: no CVA tenderness Skin: General skin exam: normal color Rashes: no rashes Wounds: no wounds Neuro: General: patient oriented x3 Cranial nerves: Yes Nystagmus not present Speech: normal speech Gait exam (Neuro): Normal gait present Extrem: General: normal to inspection Psych: Mental Status: mental status grossly normal Affect: normal affect Course Course Emergency Course: Labs reviewed with patient and is positive for COVID. Vital Signs Vital signs: Vital Signs Temperature 37.1 C 03/07/22 10:00 Pulse Rate 59 L 03/07/22 10:00 Respiratory Rate 03/07/22 10:00 Blood Pressure 142/69 H 03/07/22 10:00 Pulse Oximetry 97 03/07/22 10:00 Oxygen Delivery Room Air 03/07/22 10:00 Temperature 37.1 C 03/07/22 10:00 Pulse Rate 59 L 03/07/22 10:00 Respiratory Rate 03/07/22 10:00 Blood Pressure 142/69 H 03/07/22 10:00 Pulse Oximetry 97 03/07/22 10:00 O
[2022-03-07 11:11] VITALS: BP 140/71; PULSE 69; RESP 20; TEMP 36.3; O2SAT 97
== END 2022-03-07 11:12 | disposition home or self-care (01) ==
PROVIDERS: Emergency Provider Emergency Medicine; PCP Internal Medicine
DX: U07.1 COVID-19 (principal); Z79.51 Long term (current) use of inhaled steroids; Z79.4 Long term (current) use of insulin
CPT/HCPCS: 87637; 87651; 99283

== ENCOUNTER 2022-03-15 07:37 | Outpatient (CLI) | payer MEDICARE, SELFPAY ==
[2022-03-15 08:21] LABS: Hemoglobin A1C 9.3 % (<5.7)
== END 2022-03-15 07:38 | disposition home or self-care (01) ==
LOC: CHSLAB 07:39
PROVIDERS: PCP Internal Medicine; Visit Provider Internal Medicine
DX: E11.9 Type 2 diabetes mellitus without complications (principal); Z85.3 Personal history of malignant neoplasm of breast
CPT/HCPCS: 36415; 83036

== ENCOUNTER 2022-03-26 07:41 | Outpatient (RCR) | payer MEDICARE, SELFPAY ==
[2022-02-13 21:23] LABS: Immunoglobulin G 972 mg/dL (600-1540)
[2022-03-30 07:42] LABS: Immunoglobulin G 927
== END 2022-05-10 23:59 | disposition home or self-care (01) ==
LOC: CHSLAB 07:41
PROVIDERS: PCP Internal Medicine; Visit Provider Internal Medicine Pulmonary Disease
DX: D83.9 Common variable immunodeficiency, unspecified (principal)
CPT/HCPCS: 36415; 82784

== ENCOUNTER 2022-05-02 15:08 | Outpatient (CLI) | payer MEDICARE, SELFPAY ==
[2022-05-02 15:23] LABS: Basophils Absolute Auto 0.03 K/mm3 (0.00-0.10); Basophils Percent Auto 0.5 % (0.0-1.0); Eosinophils Absolute Auto 0.08 K/mm3 (0.02-0.50); Eosinophils Percent Auto 1.3 % (1.0-6.0); Hematocrit 29.6 % (35.0-42.0); Hemoglobin 9.4 g/dL (11.7-13.8); Immature Granulocyte Absolute 0.01 K/mm3 (0.00-0.00); Immature Granulocyte Percent A 0.2 % (0.0-0.0); Immature Platelet Fraction Pct 5.9 % (1.0-7.0); Lymphocytes Absolute Auto 2.09 K/mm3 (1.10-4.50); Lymphocytes Percent Auto 34.4 % (18.0-42.0); Mean Corpuscular HGB Conc 31.8 g/dL (32.0-36.0); Mean Corpuscular Hemoglobin 29.1 pg (27.0-31.0); Mean Corpuscular Volume 91.6 fL (78.0-102.0); Monocytes Absolute Auto 0.44 K/mm3 (0.10-0.90); Monocytes Percent Auto 7.2 % (2.0-11.0); Neutrophils Absolute Auto 3.4 K/mm3 (1.7-7.2); Neutrophils Percent Auto 56.4 % (50.0-70.0); Platelet Count Result 49 K/mm3 (150-420); Red Blood Count 3.23 M/mm3 (4.20-5.40); Red Cell Distribution Width 16.4 % (11.6-14.4); White Blood Count 6.1 K/mm3 (4.8-10.8)
[2022-05-02 15:58] LABS: Alanine Aminotransferase 28 U/L (14-59); Albumin Level 3.6 g/dL (3.4-5.0); Alkaline Phosphatase 105 U/L (46-116); Amylase 37 U/L (25-115); Anion Gap 10 mmol/L (8-16); Aspartate Amino Transferase 40 U/L (15-37); Bilirubin,Total 0.6 mg/dL (0.00-1.00); Blood Urea Nitrogen 20 mg/dL (7-18); Calcium 8.9 mg/dL (8.5-10.1); Carbon Dioxide 28 mmol/L (21-32); Chloride 101 mmol/L (98-108); Estimated Glomerular Filt Rate 49; Glucose 137 mg/dL (70-99); Lipase 26 U/L (16-77); Osmolality Calculated 292 mOsm/kg (285-295); Potassium 3.6 mmol/L (3.5-5.1); Sodium 139 mmol/L (136-145); Total Protein 7.5 g/dL (6.4-8.2)
== END 2022-05-02 15:09 | disposition home or self-care (01) ==
LOC: CHSLAB 15:10
PROVIDERS: PCP Internal Medicine; Visit Provider Nurse Practitioner Family
DX: R10.9 Unspecified abdominal pain (principal)
CPT/HCPCS: 36415; 80053; 82150; 83690; 85025; 85055

== ENCOUNTER 2022-05-06 08:57 | Outpatient (CLI) | payer MEDICARE, SELFPAY ==
--- NOTE | ~2022-05-06 | CT_ITS ---
EXAMINATION: CT abdomen wo con DATE: 05/06/2022 09:27 INDICATION: Left upper quadrant abdominal pain. Splenomegaly. History of breast cancer 5.5 years ago TECHNIQUE: Computed tomography (CT) of the abdomen and pelvis was performed without intravenous contr ast. Automated exposure control and iterative reconstruction technique were employed. Exam dose: 439 .66 mGy-cm total exam DLP. COMPARISON: 10/16/2021 CT abdomen pelvis FINDINGS: There is mild tree-in-bud infiltrate in the lateral segment of the middle lobe and to a les ser extent the anterior basilar right lower lobe. There is asymmetric left breast skin thickening; history of breast cancer. Normal heart size. There is some calcification in the region of the aortic and mitral valves. No danette cardial or pleural effusion. Occasional calcified hepatic granulomas and particularly numerous calcified splenic granulomas. No he patic space-occupying mass lesion is evident on this limited noncontrast examination. Stable mild per iportal adenopathy. No periaortic, aortocaval or mesenteric adenopathy is noted. There is splenomegal y, measuring up to approximately 15 cm vertical dimension. The gallbladder is absent. No bile duct or pancreatic duct dilatation. No pancreatic mass lesion or c alcification. Normal right adrenal gland. Left 2.2 cm low-attenuation left adrenal mass lesion, likely an adrenal a denoma, stable since 10/16/2021. No renal mass lesion or urinary tract calculus or hydroureteronephrosis is detected on this limited n oncontrast CT examination of the abdomen. There is atherosclerotic calcification but normal caliber of the abdominal aorta and iliac arteries. No intraperitoneal or retroperitoneal mass lesion or adenopathy or ascites. Small sliding hiatal hernia. Small fat-containing umbilical hernia. Moderate anterior wedge compression fracture deformity of T12, stable since 10/16/2021. Degenerative changes in the lower thoracic and lumbar spine. No suspicious osteolytic or osteoblastic lesions are noted. IMPRESSION: Stable splenomegaly Stable mild periportal lymphadenopathy Stable approximately 2.2 cm left adrenal mass Chronic tree-in-bud infiltrate in the middle lobe, with minimal involvement of the anterior basilar s egment of right lower lobe since 10/16/2021 Left breast skin thickening; history of breast cancer Reviewed, dictated and finalized at Location A. Reviewed, dictated and finalized at location B. [employer] IMPRESSION: Stable splenomegaly Stable mild periportal lymphadenopathy Stable approximately 2.2 cm left adrenal mass Chronic tree-in-bud infiltrate in the middle lobe, with minimal involvement of the anterior basilar segment of right lower lobe since 10/16/2021 Left breast skin thickening; history of breast cancer
== END 2022-05-06 08:58 | disposition home or self-care (01) ==
PROVIDERS: PCP Internal Medicine; Visit Provider Nurse Practitioner Family
DX: R10.12 Left upper quadrant pain (principal); R16.1 Splenomegaly, not elsewhere classified; R59.0 Localized enlarged lymph nodes; E27.9 Disorder of adrenal gland, unspecified; R91.8 Other nonspecific abnormal finding of lung field; Z85.3 Personal history of malignant neoplasm of breast
CPT/HCPCS: 74150

== ENCOUNTER 2022-05-14 07:40 | Outpatient (CLI) | payer MEDICARE, SELFPAY ==
[2022-05-14 08:14] LABS: Basophils Absolute Auto 0.03 K/mm3 (0.00-0.10); Basophils Percent Auto 0.6 % (0.0-1.0); Eosinophils Absolute Auto 0.12 K/mm3 (0.02-0.50); Eosinophils Percent Auto 2.5 % (1.0-6.0); Hematocrit 28.8 % (35.0-42.0); Hemoglobin 9.3 g/dL (11.7-13.8); Immature Granulocyte Absolute 0.01 K/mm3 (0.00-0.00); Immature Granulocyte Percent A 0.2 % (0.0-0.0); Immature Platelet Fraction Pct 5.9 % (1.0-7.0); Lymphocytes Absolute Auto 1.74 K/mm3 (1.10-4.50); Lymphocytes Percent Auto 36.3 % (18.0-42.0); Mean Corpuscular HGB Conc 32.3 g/dL (32.0-36.0); Mean Corpuscular Hemoglobin 29.7 pg (27.0-31.0); Mean Platelet Volume 12.3 fl (9.2-11.8); Monocytes Absolute Auto 0.34 K/mm3 (0.10-0.90); Monocytes Percent Auto 7.1 % (2.0-11.0); Neutrophils Absolute Auto 2.6 K/mm3 (1.7-7.2); Neutrophils Percent Auto 53.3 % (50.0-70.0); Platelet Count Result 46 K/mm3 (150-420); Red Blood Count 3.13 M/mm3 (4.20-5.40); Red Cell Distribution Width 16.3 % (11.6-14.4); White Blood Count 4.8 K/mm3 (4.8-10.8)
[2022-05-14 08:44] LABS: Alanine Aminotransferase 23 U/L (14-59); Albumin Level 3.5 g/dL (3.4-5.0); Alkaline Phosphatase 101 U/L (46-116); Anion Gap 9 mmol/L (8-16); Aspartate Amino Transferase 33 U/L (15-37); Bilirubin,Total 0.4 mg/dL (0.00-1.00); Blood Urea Nitrogen 19 mg/dL (7-18); Carbon Dioxide 30 mmol/L (21-32); Chloride 105 mmol/L (98-108); Estimated Glomerular Filt Rate 50; Glucose 115 mg/dL (70-99); Lactate Dehydrogenase 200 U/L (81-234); Osmolality Calculated 301 mOsm/kg (285-295); Potassium 3.8 mmol/L (3.5-5.1); Sodium 144 mmol/L (136-145); Total Protein 7.1 g/dL (6.4-8.2)
[2022-05-18 10:04] LABS: Immunoglobulin G 868 mg/dL (600-1540)
== END 2022-05-14 07:41 | disposition home or self-care (01) ==
LOC: CHSLAB 07:42
PROVIDERS: PCP Internal Medicine; Visit Provider Internal Medicine Hematology & Oncology
DX: D83.9 Common variable immunodeficiency, unspecified (principal)
CPT/HCPCS: 36415; 80053; 82784; 83615; 85025; 85055

== ENCOUNTER 2022-05-22 11:57 | Outpatient (CLI) | payer MEDICARE, SELFPAY ==
--- NOTE | ~2022-05-22 | XR_ITS ---
XR chest 2V DATE: 05/22/2022 12:14 INDICATION: Recurrent cough, congestion for weeks TECHNIQUE: PA and lateral views COMPARISON: 05/21/2021 portable AP chest 12/03/2018 2 view chest FINDINGS: Normal heart size. Aortic arch calcification, minimal aortic unfolding. No hilar or mediast inal enlargement. No pulmonary infiltrate or consolidation, pleural effusion or pulmonary vascular congestion or pneumo thorax. Diffuse osteopenia. Degenerative spurring of the thoracic and lumbar spine. IMPRESSION: No active cardiopulmonary disease or significant change since 12/03/2018 Reviewed, dictated and finalized at location B. IMPRESSION: No active cardiopulmonary disease or significant change since 2018
== END 2022-05-22 11:58 | disposition home or self-care (01) ==
LOC: CHSIMG 11:58
PROVIDERS: PCP Internal Medicine; Visit Provider Nurse Practitioner Family
DX: R05.9 Cough, unspecified (principal)
CPT/HCPCS: 71046

== ENCOUNTER 2022-06-03 13:08 | Outpatient (CLI) | payer MEDICARE, SELFPAY ==
--- NOTE | 2022-06-03 01:00 | ECHO_ITS ---
Patient Info Name: Elayne Salmeron Age: 77 years : 1945 Gender: Female Ht: 59 in Wt: 156 lbs BSA: 1.75 m2 HR: 60 bpm BP: 126 / 35 mmHg Heart Rhythm: Sinus Rhythm Technical Quality: Fair Exam Date: 06/03/2022 1:03 PM Exam Location: [facility] Patient Status: Outpatient Admit Date: 06/03/2022 Staff Ordering Physician: ChristopherKathleen NP Bradder: Twila Alvarez RDCS Attending Provider: AmandoKathleen NP Referring Physician: Christopher BAY; Exam Type: CA echo doppler color flow Study Info Indications R94.31 - Abnormal electrocardiogram ECG EKG Complete two-dimensional, color flow and Doppler transthoracic echocardiogram is performed. Summary 1. Complete two-dimensional, color flow and Doppler transthoracic echocardiogram is performed. 2. Left ventricular chamber dimension is normal. 3. Left ventricular systolic function is normal, estimated at 60-65%. 4. The left ventricular diastolic function is abnormal. 5. E/e' 15 is elevated. 6. Left atrial chamber dimension is mildly enlarged. 7. Right atrial in flow seen from atrial septum suggests atrial septal defect. 8. There is moderate aortic valve sclerosis. 9. There is moderate aortic valve stenosis with a peak velocity of 229 cm/s, mean gradient of 12 mmHg, and aortic valve area of 1.5 cm2. 10. There is trace mitral valve regurgitation. 11. There is trace tricuspid valve regurgitation. 12. No pulmonary hypertension, estimated pulmonary arterial systolic pressure is 31 mmHg. 13. There is trace pulmonic regurgitation. Left Ventricle E/e' 15 is elevated. Left ventricular chamber dimension is normal. Left ventricular systolic function is normal, estimated at 60-65%. The left ventricular diastolic function is abnormal. Right Ventricle Right ventricular systolic function is normal and with normal TAPSE 2.5 cm. Right ventricular chamber dimension is normal. Left Atria Left atrial chamber dimension is mildly enlarged. Right Atria Right atrial chamber dimension is normal. Atrial Septum Right atrial in flow seen from atrial septum suggests atrial septal defect. Suspected atrial septal defect visualized by 2D and color flow imaging. Aortic Valve The aortic valve is trileaflet. There is moderate aortic valve sclerosis. There is moderate aortic valve stenosis with a peak velocity of 229 cm/s, mean gradient of 12 mmHg, and aortic valve area of 1.5 cm2. There is no aortic valve regurgitation. Pulmonic Valve There is trace pulmonic regurgitation. Mitral Valve There is no mitral valve stenosis. There is trace mitral valve regurgitation. Tricuspid Valve There is trace tricuspid valve regurgitation. No pulmonary hypertension, estimated pulmonary arterial systolic pressure is 31 mmHg. Pericardium/Pleural There is no pericardial effusion. Inferior Vena Cava Normal inferior vena cava with >50% collapse upon inspiration consistent with normal right atrial pressure, 5 mmHg. Aorta The aortic root size at the sinus of Valsalva is normal. Left Ventricular Outflow Tract Name Value Normal LVOT 2D LVOT Diameter 2.0 cm LVOT Doppler
== END 2022-06-03 13:09 | disposition home or self-care (01) ==
LOC: CHSIMG 13:11
PROVIDERS: PCP Internal Medicine; Visit Provider Nurse Practitioner Family
DX: R94.31 Abnormal electrocardiogram [ECG] [EKG] (principal); I35.8 Other nonrheumatic aortic valve disorders
CPT/HCPCS: 93306

== ENCOUNTER 2022-07-27 07:22 | Outpatient (CLI) | payer MEDICARE, SELFPAY ==
[2022-07-27 07:46] LABS: Hemoglobin A1C 8.6 % (<5.7)
[2022-07-27 08:11] LABS: Cholesterol 145 mg/dL (0-200); HDL Direct 39 mg/dL (40-60); LDL Cholesterol Calculated 74 mg/dL (<130); Triglycerides 160 mg/dL (0-150)
== END 2022-07-27 07:23 | disposition home or self-care (01) ==
LOC: CHSLAB 07:23
PROVIDERS: PCP Internal Medicine; Visit Provider Internal Medicine
DX: E11.65 Type 2 diabetes mellitus with hyperglycemia (principal); E78.5 Hyperlipidemia, unspecified
CPT/HCPCS: 36415; 80061; 83036

== ENCOUNTER 2022-09-20 07:15 | Outpatient (RCR) | payer MEDICARE, SELFPAY ==
[2022-07-09 11:17] LABS: Immunoglobulin G 872 mg/dL (600-1540)
[2022-08-14 13:24] LABS: Immunoglobulin G 912 mg/dL (600-1540)
[2022-09-24 19:12] LABS: Immunoglobulin G 887 mg/dL (600-1540)
== END 2022-09-30 23:59 | disposition home or self-care (01) ==
LOC: CHSLAB 07:15
PROVIDERS: PCP Internal Medicine; Visit Provider Internal Medicine Pulmonary Disease
DX: D83.9 Common variable immunodeficiency, unspecified (principal)
CPT/HCPCS: 36415; 82784

== ENCOUNTER 2022-10-29 07:11 | Outpatient (CLI) | payer MEDICARE, SELFPAY ==
[2022-10-29 07:24] LABS: Basophils Absolute Auto 0.03 K/mm3 (0.00-0.10); Basophils Percent Auto 0.6 % (0.0-1.0); Eosinophils Absolute Auto 0.17 K/mm3 (0.02-0.50); Eosinophils Percent Auto 3.4 % (1.0-6.0); Immature Granulocyte Absolute 0.02 K/mm3 (0.00-0.00); Immature Granulocyte Percent A 0.4 % (0.0-0.0); Lymphocytes Percent Auto 33.5 % (18.0-42.0); Mean Corpuscular HGB Conc 32.1 g/dL (32.0-36.0); Mean Corpuscular Hemoglobin 29.8 pg (27.0-31.0); Mean Corpuscular Volume 92.7 fL (78.0-102.0); Mean Platelet Volume 11.6 fl (9.2-11.8); Monocytes Absolute Auto 0.46 K/mm3 (0.10-0.90); Monocytes Percent Auto 9.1 % (2.0-11.0); Neutrophils Absolute Auto 2.7 K/mm3 (1.7-7.2); Platelet Count Result 44 K/mm3 (150-420); Red Blood Count 3.02 M/mm3 (4.20-5.40); Red Cell Distribution Width 16.4 % (11.6-14.4); White Blood Count 5.1 K/mm3 (4.8-10.8)
[2022-10-29 08:09] LABS: Alanine Aminotransferase 20 U/L (14-59); Albumin Level 3.3 g/dL (3.4-5.0); Alkaline Phosphatase 92 U/L (46-116); Anion Gap 10 mmol/L (8-16); Aspartate Amino Transferase 28 U/L (15-37); Bilirubin,Total 0.5 mg/dL (0.00-1.00); Blood Urea Nitrogen 19 mg/dL (7-18); Calcium 8.7 mg/dL (8.5-10.1); Carbon Dioxide 29 mmol/L (21-32); Chloride 103 mmol/L (98-108); Estimated Glomerular Filt Rate 52; Glucose 206 mg/dL (70-99); Lactate Dehydrogenase 185 U/L (81-234); Osmolality Calculated 302 mOsm/kg (285-295); Potassium 3.9 mmol/L (3.5-5.1); Sodium 142 mmol/L (136-145); Total Protein 6.9 g/dL (6.4-8.2)
== END 2022-10-29 07:12 | disposition home or self-care (01) ==
LOC: CHSLAB 07:12
PROVIDERS: PCP Internal Medicine; Visit Provider Internal Medicine Hematology & Oncology
DX: C83.00 Small cell B-cell lymphoma, unspecified site (principal)
CPT/HCPCS: 36415; 80053; 83615; 85025

== ENCOUNTER 2022-11-27 07:43 | Outpatient (CLI) | payer MEDICARE, SELFPAY ==
[2022-11-27 08:38] LABS: Alanine Aminotransferase 23 U/L (14-59); Albumin Level 3.2 g/dL (3.4-5.0); Alkaline Phosphatase 94 U/L (46-116); Anion Gap 8 mmol/L (8-16); Aspartate Amino Transferase 25 U/L (15-37); Bilirubin,Total 0.5 mg/dL (0.00-1.00); Blood Urea Nitrogen 19 mg/dL (7-18); Carbon Dioxide 29 mmol/L (21-32); Chloride 105 mmol/L (98-108); Estimated Glomerular Filt Rate 49; Glucose 124 mg/dL (70-99); Osmolality Calculated 297 mOsm/kg (285-295); Potassium 3.7 mmol/L (3.5-5.1); Sodium 142 mmol/L (136-145); Total Protein 6.9 g/dL (6.4-8.2)
== END 2022-11-27 07:44 | disposition home or self-care (01) ==
LOC: CHSLAB 07:45
PROVIDERS: PCP Internal Medicine; Visit Provider Internal Medicine
DX: E11.9 Type 2 diabetes mellitus without complications (principal); I10 Essential (primary) hypertension
CPT/HCPCS: 36415; 80053; 83036

== ENCOUNTER 2022-12-30 14:26 | Outpatient (CLI) | payer MEDICARE, SELFPAY ==
--- NOTE | ~2022-12-30 | XR_ITS ---
XR foot RT min 3V DATE: 12/30/2022 15:00 INDICATION: Right foot pain. Second toe bruising. Gout. TECHNIQUE: 4 views COMPARISON: None FINDINGS: Virtually nondisplaced transverse proximal shaft fracture of proximal phalanx of fifth digi t. This appears recent. Diffuse osteopenia. Mild osteoarthritis at the first metatarsophalangeal joint. There is posterior and greater plantar ca lcaneal enthesopathy. Osteopenia. Anterior tibial and dorsalis pedis and metatarsal and digital artery calcifications, suggesting diabe reinier. IMPRESSION: Proximal shaft fracture of proximal phalanx of fifth toe Osteopenia Mild osteoarthritis Calcaneal enthesopathy Arterial calcifications including digital artery calcifications, suggesting diabetes Reviewed, dictated and finalized at location B. IMPRESSION: Proximal shaft fracture of proximal phalanx of fifth toe Osteopenia Mild osteoarthritis Calcaneal enthesopathy Arterial calcifications including digital artery calcifications, suggesting venu betes
[2022-12-30 14:47] LABS: Basophils Absolute Auto 0.03 K/mm3 (0.00-0.10); Basophils Percent Auto 0.6 % (0.0-1.0); Eosinophils Absolute Auto 0.14 K/mm3 (0.02-0.50); Eosinophils Percent Auto 2.7 % (1.0-6.0); Hematocrit 27.6 % (35.0-42.0); Hemoglobin 8.8 g/dL (11.7-13.8); Immature Granulocyte Absolute 0.02 K/mm3 (0.00-0.00); Immature Granulocyte Percent A 0.4 % (0.0-0.0); Immature Platelet Fraction Pct 5.3 % (1.0-7.0); Lymphocytes Absolute Auto 1.92 K/mm3 (1.10-4.50); Lymphocytes Percent Auto 37.2 % (18.0-42.0); Mean Corpuscular HGB Conc 31.9 g/dL (32.0-36.0); Mean Corpuscular Hemoglobin 29.8 pg (27.0-31.0); Mean Corpuscular Volume 93.6 fL (78.0-102.0); Mean Platelet Volume 12.2 fl (9.2-11.8); Monocytes Percent Auto 7.8 % (2.0-11.0); Neutrophils Absolute Auto 2.7 K/mm3 (1.7-7.2); Neutrophils Percent Auto 51.3 % (50.0-70.0); Platelet Count Result 46 K/mm3 (150-420); Red Blood Count 2.95 M/mm3 (4.20-5.40); White Blood Count 5.2 K/mm3 (4.8-10.8)
[2022-12-30 15:12] LABS: Alanine Aminotransferase 20 U/L (14-59); Albumin Level 3.1 g/dL (3.4-5.0); Alkaline Phosphatase 93 U/L (46-116); Anion Gap 9 mmol/L (8-16); Aspartate Amino Transferase 27 U/L (15-37); Bilirubin,Total 0.5 mg/dL (0.00-1.00); Blood Urea Nitrogen 22 mg/dL (7-18); CRP 1.8 mg/dL (0.0-0.9); Calcium 8.9 mg/dL (8.5-10.1); Carbon Dioxide 29 mmol/L (21-32); Chloride 102 mmol/L (98-108); Estimated Glomerular Filt Rate 41; Glucose 192 mg/dL (70-99); Osmolality Calculated 298 mOsm/kg (285-295); Potassium 3.7 mmol/L (3.5-5.1); Sodium 140 mmol/L (136-145); Total Protein 7.2 g/dL (6.4-8.2); Uric Acid 4.7 mg/dL (2.6-6.0)
[2023-01-03 11:59] LABS: Vitamin D 25 Hydroxy 10 ng/mL (30-100)
== END 2022-12-30 14:27 | disposition home or self-care (01) ==
LOC: CHSLAB 14:28
PROVIDERS: PCP Internal Medicine; Visit Provider Nurse Practitioner Family
DX: M79.671 Pain in right foot (principal); M10.9 Gout, unspecified; E11.9 Type 2 diabetes mellitus without complications; S92.511A Displaced fracture of proximal phalanx of right lesser toe(s), initial encounter for closed fracture; M85.871 Other specified disorders of bone density and structure, right ankle and foot; M77.31 Calcaneal spur, right foot; E55.9 Vitamin D deficiency, unspecified
CPT/HCPCS: 36415; 73630; 80053; 82306; 84550; 85025; 85055; 86140

== ENCOUNTER 2023-01-06 07:37 | Outpatient (CLI) | payer MEDICARE, SELFPAY ==
--- NOTE | ~2023-01-06 | MM_ITS ---
EXAMINATION: MM screening justyn BI w juliane HISTORY: Screening mammogram TECHNIQUE: Craniocaudal and mediolateral oblique 3-D tomosynthesis images were obtained and synthetic 2-D images were generated. CAD analysis was submitted and interpreted. COMPARISON: 01/02/2022, 12/29/2020, 12/27/2019 BREAST PARENCHYMAL COMPOSITION:The breasts are heterogeneously dense, which may obscure small masses. FINDINGS: Bilateral benign calcifications are present. There is stable decreased size of the left kelli ast as compared to the right, with stable left breast skin thickening. These findings presumably repr esent chronic postoperative/post therapy change. No suspicious mass, calcification, or architectural distortion are identified in either breast to suggest malignancy. There has been no suspicious interv al change. IMPRESSION: No mammographic evidence of malignancy. Recommend routine screening mammography in one year. BI-RADS Category 2: Benign finding(s). Reviewed, dictated and finalized at [facility]. 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
== END 2023-01-06 07:38 | disposition home or self-care (01) ==
LOC: CHSIMG 07:39
PROVIDERS: PCP Internal Medicine; Visit Provider Internal Medicine Hematology & Oncology
DX: Z12.31 Encounter for screening mammogram for malignant neoplasm of breast (principal)
CPT/HCPCS: 77063; 77067

== ENCOUNTER 2023-01-13 07:40 | Outpatient (RCR) | payer MEDICARE, SELFPAY ==
[2022-11-08 10:15] LABS: Immunoglobulin G 882 mg/dL (600-1540)
[2022-12-16 04:57] LABS: Immunoglobulin G 906 mg/dL (600-1540)
[2023-01-16 10:49] LABS: Immunoglobulin G 1050 mg/dL (600-1540)
== END 2023-02-03 23:59 | disposition home or self-care (01) ==
LOC: CHSLAB 07:40
PROVIDERS: PCP Internal Medicine; Visit Provider Internal Medicine Pulmonary Disease
DX: D83.9 Common variable immunodeficiency, unspecified (principal)
CPT/HCPCS: 36415; 82784

== ENCOUNTER 2023-01-24 06:27 | Emergency (ER) | payer MEDICARE, SELFPAY ==
--- NOTE | ~2023-01-24 | XR_ITS ---
EXAMINATION: XR knee RT 3V DATE: 01/24/2023 07:05 INDICATION: Right knee pain TECHNIQUE: Four views of the right knee were obtained. COMPARISON: None. FINDINGS: Alignment is normal. There is mild cortical irregularity along the lateral margin of the pa tella. Chondrocalcinosis is noted. There is a small knee joint effusion. There is calcified atheroscl erosis. IMPRESSION: 1. Possible nondisplaced fracture along the lateral margin of the patella. 2. Small joint effusion. Reviewed, dictated and finalized at location F. PAINTER
[2023-01-24 06:48] VITALS: BP 142/83; PULSE 60; RESP 18; TEMP 36.8; O2SAT 97
--- NOTE | 2023-01-24 06:52 | ED.GENADULT ---
HPI - General Adult General Chief complaint: Extremity Injury, Lower <Cristofer Trotter DO - Last Filed: 01/31/23 11:19> Stated complaint: R knee pain <Cristofer Trotter DO - Last Filed: 01/31/23 11:19> Time Seen by Provider: 01/24/23 06:47 <Cristofer Trotter DO - Last Filed: 01/31/23 11:19> History of Present Illness HPI narrative: Elayne is a 77F with a PMH covid, gout, COPD, dementia, diabetes, GERD, HLD and HTN that presented to the ED via EMS after a fall. Her grandson accidentally pulled her over yesterday and she fell onto her knee. It was fine yesterday but it has continued to get worse. Now the pain is so bad when she puts weight on it she cannot ambulate. No other injuries noted. <Cristofer Trotter DO - Last Filed: 01/31/23 11:19> Related Data Home medications: Home Medications Medication Instructions Recorded Confirmed allopurinol 100 mg tablet 100 mg BID 04/05/20 01/24/23 carvedilol 25 mg tablet 25 mg BID 04/05/20 01/24/23 hydrochlorothiazide 25 mg tablet 25 mg QAM 04/05/20 01/24/23 insulin NPH isoph U-100 human 100 See Rx Instructions .Route .COMPLEX 04/05/20 01/24/23 unit/mL subcutaneous suspension (Novolin N NPH U-100 Insulin isophane) montelukast 10 mg tablet 10 mg QAM 04/05/20 01/24/23 omeprazole 40 mg capsule,delayed 40 mg QAM 04/05/20 01/24/23 release simvastatin 20 mg tablet 20 mg PO HS 04/05/20 01/24/23 <Cristofer Trotter DO - Last Filed: 01/31/23 11:19> Allergies/adverse reactions: Allergies Allergy/AdvReac Type Severity Reaction Status Date / Time No Known Allergies Allergy Verified 05/21/21 13:35 <Cristofer Trotter DO - Last Filed: 01/31/23 11:19> Review of Systems Review of Systems: All systems reviewed & are unremarkable except as noted in HPI and below <Cristofer Trotter DO - Last Filed: 01/31/23 11:19> [facility] Past Medical History Medical History: Medical History Bronchitis Cellulitis of left hand <Cristofer Trotter DO - Last Filed: 01/31/23 11:19> Social History Social History: Social History Smoking status: Never smoker Second hand tobacco smoke exposure: No Alcohol intake: never Substance use: never Substance use type: does not use Living arrangements: alone Spiritual care concerns: No <Cristofer Trotter DO - Last Filed: 01/31/23 11:19> Exam Const: General: healthy appearing and no acute distress <Cristofer Trotter DO - Last Filed: 01/31/23 11:19> Nutritional Appearance: well nourished <Cristofer Trotter DO - Last Filed: 01/31/23 11:19> Orientation/consciousness: patient oriented x3 <Cristofer Trotter DO - Last Filed: 01/31/23 11:19> HENMT: Head: normal to inspection <Cristofer Trotter DO - Last Filed: 01/31/23 11:19> Eyes: Conjunctivae: conjunctivae normal <Cristofer Trotter DO - Last Filed: 01/31/23 11:19> Neck: Neck: normal visual inspection <Cristofer Trotter DO - Last Filed: 01/31/23 11:19> Chest: Chest palpation & inspection: normal inspection of the chest <Cristofer Trotter DO - Last Filed: 01/31/23 11:19> Resp: Effort & Inspection: normal respiratory effort, not labored and no retractions <Cristofer Trotter DO - Last Filed: 01/31/23 11:19> Auscultation: clear to auscultation bilaterally <Cristofer Trotter DO - Last Filed: 01/31/23 11:19> Cardio: Rate: regular rate <Cristofer Trotter DO - Last Filed: 01/31/23 11:19> Rhythm: regular rhythm <Cristofer Trotter DO - Last Filed: 01/31/23 11:19> Back/Spine/Pelvis: Back: no CVA tenderness <Cristofer Trotter DO - Last Filed: 01/31/23 11:19> Skin: General skin exam: normal color <Cristofer Trotter DO - Last Filed: 01/31/23 11:19> Neuro: General: patient oriented x3 and moves all extremities <Cristofer Trotter, DO - Last Filed: 01/31/23 11:19> Extrem: Other: Right knee contusion and TTP
[2023-01-24 07:45] VITALS: BP 118/57; PULSE 59; RESP 20; TEMP 36.7; O2SAT 96
== END 2023-01-24 07:55 | disposition home or self-care (01) ==
PROVIDERS: Emergency Provider Emergency Medicine; PCP Internal Medicine
DX: S82.091A Other fracture of right patella, initial encounter for closed fracture (principal); E11.9 Type 2 diabetes mellitus without complications; I10 Essential (primary) hypertension; E78.5 Hyperlipidemia, unspecified; J44.9 Chronic obstructive pulmonary disease, unspecified; F03.90 Unspecified dementia, unspecified severity, without behavioral disturbance, psychotic disturbance, mood disturbance, and anxiety; Z79.4 Long term (current) use of insulin; Z79.899 Other long term (current) drug therapy; W19.XXXA Unspecified fall, initial encounter
CPT/HCPCS: 73562; 99284; L1830

== ENCOUNTER 2023-04-07 07:27 | Outpatient (CLI) | payer MEDICARE, SELFPAY ==
--- NOTE | ~2023-04-07 | DEXA_ITS ---
Bone Density Report Name: CICI HUTCHINSON Age: 77 Sex: Female Ethnicity: White Date of : 1945 Indication: postmenopausal; screening for osteoporosis; height loss; prior fracture; cancer; Referring Provider: Christopher, Kathleen Keller Study: Bone densitometry was performed. Exam Date: April 07, 2023 Accession number: [id number] Bone Density: Region BMD T-score Z-score Classification AP Spine(L1-L4) 1.045 0.0 2.7 Normal Femoral Neck (Left) 0.522 -2.9 -0.6 Osteoporosis Total Hip (Left) 0.759 -1.5 0.6 Osteopenia Femoral Neck (Right) 0.482 -3.3 -1.0 Osteoporosis Total Hip (Right) 0.734 -1.7 0.4 Osteopenia Femoral Neck Mean 0.502 -3.1 -0.8 Osteoporosis Total Hip Mean 0.747 -1.6 0.5 Osteopenia World Health Organization criteria for BMD impression classify patients as: Normal (T-score at or above -1.0), Osteopenia (T-score between -1.0 and -2.5), or Osteoporosis (T-score at or below -2.5). 10-year Fracture Risk: FRAX not reported because: Some T-score for Spine Total or Hip Total or Femoral Neck at or below -2.5 Clinical Information Provided by Patient: Has had a low trauma fracture Has used the following medications: Vitamin D Has the following medical conditions: Cancer Patient maximum height was 59 Menopause Age: 53 No regular weight bearing exercise Drinks caffeinated beverages Onset of menses at age 10 Number of children 2 Impression: The patient has established osteoporosis, based on the Right Femoral Neck T-score and the existence of a prior fracture. The patient has risk factors, including: previous fracture. Discussion: HIGH RISK OF FRACTURE. BONE DENSITY IS UNDESIRABLY LOW AT ONE OR MORE SKELETAL SITES, CONSISTENT WITH POSTMENOPAUSAL OSTEOPOROSIS. This patient's lowest T-score, in a patient who has previously fractured, meets the World Health Organization's (WHO) criteria for severe osteoporosis. In untreated patients, the risk of osteoporotic fracture increases approximately two-fold for each 1.0 SD decrease in T-score. Low bone density is not the only risk factor for fracture; also consider factors such as patient's age, frailty or poor health, risk of falling, risk of injury, previous osteoporotic fracture, family history of osteoporosis, cigarette smoking, low body weight, etc. Not everyone with low bone mineral density has osteoporosis; osteomalacia and other metabolic bone disorders should also be considered. Patients who have osteoporosis should be evaluated for specific diseases and conditions (secondary causes) that may cause or contribute to bone loss. The [place] Association of Clinical Endocrinologists (AACE) and National Osteoporosis Foundation (NOF) recommend pharmacologic intervention for all postmenopausal women whose T-score is in this range. The patient should follow a healthful lifestyle (good nutrition with adequate calcium and vitamin D,
[2023-04-07 08:08] LABS: Hemoglobin A1C 8.4 % (<5.7)
[2023-04-07 08:30] LABS: Alanine Aminotransferase 21 U/L (14-59); Alkaline Phosphatase 81 U/L (46-116); Anion Gap 7 mmol/L (8-16); Aspartate Amino Transferase 26 U/L (15-37); Bilirubin,Total 0.5 mg/dL (0.00-1.00); Blood Urea Nitrogen 22 mg/dL (7-18); Calcium 8.6 mg/dL (8.5-10.1); Carbon Dioxide 29 mmol/L (21-32); Chloride 104 mmol/L (98-108); Cholesterol 159 mg/dL (0-200); Estimated Glomerular Filt Rate 45; Glucose 136 mg/dL (70-99); HDL Direct 38 mg/dL (40-60); LDL Cholesterol Calculated 80 mg/dL (<130); Osmolality Calculated 295 mOsm/kg (285-295); Potassium 3.8 mmol/L (3.5-5.1); Sodium 140 mmol/L (136-145); Thyroid Stimulating Hormone 4.66 uIU/mL (0.36-3.74); Total Protein 7.3 g/dL (6.4-8.2); Triglycerides 204 mg/dL (0-150)
== END 2023-04-07 07:28 | disposition home or self-care (01) ==
LOC: CHSIMG 07:30
PROVIDERS: PCP Internal Medicine; Visit Provider Nurse Practitioner Family
DX: I10 Essential (primary) hypertension (principal); E11.9 Type 2 diabetes mellitus without complications; E78.5 Hyperlipidemia, unspecified; Z78.0 Asymptomatic menopausal state; M85.89 Other specified disorders of bone density and structure, multiple sites; M81.0 Age-related osteoporosis without current pathological fracture
CPT/HCPCS: 36415; 77080; 80053; 80061; 83036; 84443

== ENCOUNTER 2023-04-28 07:20 | Outpatient (RCR) | payer MEDICARE, SELFPAY ==
[2023-02-18 20:17] LABS: Immunoglobulin G 1019 mg/dL (600-1540)
[2023-03-27 20:01] LABS: Immunoglobulin G 1038 mg/dL (600-1540)
[2023-05-03 10:03] LABS: Immunoglobulin G 1001 mg/dL (600-1540)
== END 2023-05-16 23:59 | disposition home or self-care (01) ==
LOC: CHSLAB 07:20
PROVIDERS: PCP Internal Medicine; Visit Provider Internal Medicine Pulmonary Disease
DX: D83.9 Common variable immunodeficiency, unspecified (principal)
CPT/HCPCS: 36415; 82784

== ENCOUNTER 2023-05-05 12:20 | Outpatient (CLI) | payer MEDICARE, SELFPAY ==
[2023-05-05] MEDS: ZOLEDRONIC ACID 5 MG/100 ML 100 ML 400 MG IVPB (12:40)
[2023-05-05 12:47] VITALS: BP 153/60; PULSE 60; RESP 14; TEMP 36.4; O2SAT 98; BMI 30.7
--- NOTE | 2023-05-05 13:18 | PC.NURSE ---
Patient here for IV Reclast yearly infusion. Education given. All concerns voiced answered. IV infusion administered. SEE MAR. Tolerated well. Safe exit of hospital per staff/ambulation.
== END 2023-05-05 13:10 | disposition home or self-care (01) ==
LOC: CHSTREATRM 12:22
PROVIDERS: PCP Internal Medicine; Visit Provider Internal Medicine
DX: M81.0 Age-related osteoporosis without current pathological fracture (principal)
CPT/HCPCS: 96365; 96374; J3489

== ENCOUNTER 2023-05-07 07:14 | Outpatient (CLI) | payer MEDICARE, SELFPAY ==
--- NOTE | ~2023-05-07 | CT_ITS ---
Clinical Indication: Breast cancer CT Scan of the Chest, Abdomen, and Pelvis with Contrast: Technique: Contiguous sections were acquired throughout the chest, abdomen, and pelvis after intraven ous administration of 100 cc of Omnipaque 350. Dose reduction technique was used on this scan by uti lizing automated exposure control and iterative reconstruction technique. The dose-length product (DL P) was 716.15 mGy-cm. COMPARISON: 05/06/2022 and 10/16/2021 Findings: There is no evidence of any significant mediastinal, hilar or axillary lymphadenopathy. The mediastin al soft tissues appear normal. There is no evidence of pleural or pericardial effusion. There are scattered focal areas of mild tree-in-bud opacity, spinal scattered areas of mild bronchiol ectasis. No overtly suspicious pulmonary nodule evident. The liver, pancreas, right adrenal and, and kidneys are within normal limits. Gallbladder is absent. Spleen is enlarged, measuring 16 cm in length, with calcified granulomas present. Stable 2.2 cm left adrenal nodule. There are atherosclerotic calcifications of the aorta. Stable enlarged periportal lym ph nodes. No bowel obstruction or bowel wall thickening. There is no evidence to suggest acute appendicitis. Urinary bladder is unremarkable. No pelvic mass seen. No ascites. Impression: Findings most compatible with extensive acute on chronic small airways disease in the lungs. No overt ly suspicious pulmonary nodule evident. Stable slightly. Stable 2.2 cm left adrenal nodule. Stable mildly enlarged tootie hepatis lymph nodes. Reviewed, dictated and finalized at [facility]. 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 No overtly suspicious pulmonary nodule evident. Stable slightly. Stable 2.2 cm left adrenal nodule. Stable mildly enlarged tootie hepatis lymph nodes.
[2023-05-07 07:50] LABS: Estimated Glomerular Filt Rate 40
[2023-05-07 11:22] LABS: Hematocrit 26.1 % (35.0-42.0); Hemoglobin 8.1 g/dL (11.7-13.8); Immature Platelet Fraction Pct 5.7 % (1.0-7.0); Mean Corpuscular Hemoglobin 27.2 pg (27.0-31.0); Mean Corpuscular Volume 87.6 fL (78.0-102.0); Mean Platelet Volume 10.6 fl (9.2-11.8); Platelet Count Result 47 K/mm3 (150-420); Red Blood Count 2.98 M/mm3 (4.20-5.40); Red Cell Distribution Width 17.1 % (11.6-14.4); White Blood Count 5.5 K/mm3 (4.8-10.8)
[2023-05-07 11:39] LABS: Band Neutrophils Percent 0 % (0-6); Basophils Absolute Manual 0.05 K/mm3 (0-0.1); Basophils Percent Manual 1 % (0-1); Eosinophils Absolute Manual 0.11 K/mm3 (0.02-0.5); Eosinophils Percent Manual 2 % (1-6); Lymphocytes Absolute Manual 2.36 K/mm3 (1.1-4.5); Lymphocytes Percent Manual 43 % (18-44); Monocytes Absolute Manual 0.38 K/mm3 (0.1-0.90); Monocytes Percent Manual 7 % (3-9); Neutrophils Absolute Manual 2.58 K/mm3 (1.7-7.2); Neutrophils Percent Manual 47 % (46-73); Total Cells Counted 100
[2023-05-07 11:40] LABS: Platelet Estimate Decreased (Adequate)
== END 2023-05-07 07:15 | disposition home or self-care (01) ==
LOC: CHSIMG 07:16
PROVIDERS: PCP Internal Medicine; Visit Provider Internal Medicine Hematology & Oncology
DX: C83.00 Small cell B-cell lymphoma, unspecified site (principal); C50.919 Malignant neoplasm of unspecified site of unspecified female breast; R91.8 Other nonspecific abnormal finding of lung field; R59.0 Localized enlarged lymph nodes
CPT/HCPCS: 71260; 74177; 85025; 85055; Q9967

== ENCOUNTER 2023-07-25 11:45 | Outpatient (CLI) | payer MEDICARE, SELFPAY ==
--- NOTE | ~2023-07-25 | XR_ITS ---
XR chest 2V DATE: 07/25/2023 12:22 INDICATION: Right lower rib pain for 2 days TECHNIQUE: 2 views COMPARISON: 05/07/2023 CTA chest abdomen pelvis 05/22/2022 2 view chest FINDINGS: Mild patchy infiltrate is suggested in the right mid and lower lung zones. No pleural effusion or pulmonary vascular congestion or pneumothorax. There is mild right hilar prominence suggesting reactive lymph node prominence. Normal heart size. Aortic arch calcification. Osteopenia. IMPRESSION: Mild patchy infiltrate in the right mid and lower lung zones, suggestion of mild right hi lar probable reactive lymphadenopathy Reviewed, dictated and finalized at location B. IMPRESSION: Mild patchy infiltrate in the right mid and lower lung zones, sugge stion of mild right hilar probable reactive lymphadenopathy
[2023-07-25 12:07] LABS: Basophils Absolute Auto 0.04 K/mm3 (0.00-0.10); Basophils Percent Auto 0.7 % (0.0-1.0); Eosinophils Absolute Auto 0.18 K/mm3 (0.02-0.50); Eosinophils Percent Auto 3.3 % (1.0-6.0); Hematocrit 25.8 % (35.0-42.0); Hemoglobin 7.9 g/dL (11.7-13.8); Immature Granulocyte Absolute 0.02 K/mm3 (0.00-0.00); Immature Granulocyte Percent A 0.4 % (0.0-0.0); Immature Platelet Fraction Pct 3.7 % (1.0-7.0); Lymphocytes Absolute Auto 2.48 K/mm3 (1.10-4.50); Lymphocytes Percent Auto 45.8 % (18.0-42.0); Mean Corpuscular HGB Conc 30.6 g/dL (32-36); Mean Corpuscular Hemoglobin 27.1 pg (27.0-31.0); Mean Corpuscular Volume 88.4 fL (78.0-102.0); Monocytes Absolute Auto 0.38 K/mm3 (0.10-0.90); Neutrophils Absolute Auto 2.31 K/mm3 (1.70-7.20); Neutrophils Percent Auto 42.8 % (50.0-70.0); Platelet Count Result 59 K/mm3 (150-420); Red Blood Count 2.92 M/mm3 (4.20-5.40); Red Cell Distribution Width 17.8 % (11.6-14.4); White Blood Count 5.4 K/mm3 (4.8-10.8)
[2023-07-25 12:25] LABS: Alanine Aminotransferase 23 U/L (14-59); Albumin Level 3.1 g/dL (3.4-5.0); Alkaline Phosphatase 83 U/L (46-116); Anion Gap 12 mmol/L (4-12); Aspartate Amino Transferase 34 U/L (15-37); Bilirubin,Total 0.6 mg/dL (0.00-1.00); Blood Urea Nitrogen 23 mg/dL (7-18); Calcium 8.4 mg/dL (8.5-10.1); Carbon Dioxide 25 mmol/L (21-32); Chloride 99 mmol/L (98-108); Estimated Glomerular Filt Rate 31; Glucose 167 mg/dL (70-99); Osmolality Calculated 289 mOsm/kg (285-295); Potassium 3.3 mmol/L (3.5-5.1); Sodium 136 mmol/L (136-145)
[2023-07-25 12:27] LABS: Appearance Urine Cloudy (Clear); Bilirubin Urine Negative (Negative); Blood Urine Negative (Negative); Color Urine Light Yellow (Yellow); Glucose Urine UA Negative (Negative); Ketones Urine Negative (Negative); Leukocyte Esterase Ur 3+ (Negative); Nitrate Urine Negative (Negative); Protein Urine Trace (Negative); Specific Grav Ur 1.015 (1.010-1.020); Urobilinogen Urine 0.2 mg/dL (0.2-1.0); pH Urine 6.5 (5.0-8.0)
[2023-07-25 12:29] LABS: Add Urine Microscopic? YES; Bacteria Urine 2+ /hpf; RBC Urine None seen /hpf (0-2); Renal Epithelial Cells Urine Moderate /hpf; Squamous Epithelial Cell Urine Moderate /hpf (Few); WBC Urine 0-3 /hpf (0-3)
== END 2023-07-25 11:46 | disposition home or self-care (01) ==
LOC: CHSLAB 11:47
PROVIDERS: PCP Internal Medicine; Visit Provider Nurse Practitioner Family
DX: R10.9 Unspecified abdominal pain (principal); R07.81 Pleurodynia; R91.8 Other nonspecific abnormal finding of lung field
CPT/HCPCS: 36415; 71046; 80053; 81001; 85025; 85055

== ENCOUNTER 2023-07-30 07:33 | Outpatient (CLI) | payer MEDICARE, SELFPAY ==
--- NOTE | ~2023-07-30 | US_ITS ---
Abdominal Sonogram: Real-time sonographic imaging of the abdomen was performed. Clinical History: Pancytopenia, anemia Findings: The liver appears mildly echogenic, with no evidence of mass lesion or bile duct dilatatio n. Main portal vein demonstrates normal direction of flow. The spleen is enlarged, measuring 15.9 cm, with calcified granulomas. The gallbladder is well distended, and appears normal with no evidence o f gallstone or wall thickening. The common bile duct measures 3 mm. The visualized pancreas, aorta, and IVC are unremarkable. The right kidney measures 11.2 cm in length and the left kidney measures 1 0.7 cm. There is no hydronephrosis or renal calculus. Impression: Probable diffuse fatty infiltration of the liver. Splenomegaly, with calcified splenic granulomas present. Reviewed, dictated and finalized at [facility]. Impression: Probable diffuse fatty infiltration of the liver. Splenomegaly, with calcified splenic granulomas present.
[2023-07-30 09:25] LABS: Ferritin 68 ng/mL (8-252); Folic Acid 16.5 ng/mL (8.6->20); Iron 53 ug/dL (50-170); Vitamin B12 825 pg/mL (193-986)
[2023-07-30 10:23] LABS: Occult Blood Negative (Negative)
== END 2023-07-30 07:34 | disposition home or self-care (01) ==
LOC: CHSIMG 07:36
PROVIDERS: PCP Internal Medicine; Visit Provider Nurse Practitioner Family
DX: D64.9 Anemia, unspecified (principal); D61.818 Other pancytopenia; R16.1 Splenomegaly, not elsewhere classified
CPT/HCPCS: 36415; 76700; 82272; 82607; 82728; 82746; 83540

== ENCOUNTER 2023-08-18 07:07 | Outpatient (RCR) | payer MEDICARE, SELFPAY ==
[2023-05-28 08:10] LABS: Immunoglobulin G 1077 mg/dL (600-1540)
[2023-06-25 13:24] LABS: Immunoglobulin G 968 mg/dL (600-1540)
[2023-07-23 11:38] LABS: Immunoglobulin G 1029 mg/dL (600-1540)
[2023-08-21 10:19] LABS: Immunoglobulin G 1004 mg/dL (600-1540)
== END 2023-08-22 23:59 | disposition home or self-care (01) ==
LOC: CHSLAB 07:07
PROVIDERS: PCP Internal Medicine; Visit Provider Internal Medicine Pulmonary Disease
DX: D83.9 Common variable immunodeficiency, unspecified (principal)
CPT/HCPCS: 36415; 82784

== ENCOUNTER 2023-10-06 07:41 | Outpatient (CLI) | payer MEDICARE, SELFPAY ==
[2023-10-06 07:56] LABS: Hematocrit 24.4 % (35.0-42.0); Hemoglobin 7.6 g/dL (11.7-13.8); Mean Corpuscular HGB Conc 31.1 g/dL (32-36); Mean Corpuscular Hemoglobin 27.7 pg (27.0-31.0); Mean Corpuscular Volume 89.1 fL (78.0-102.0); Mean Platelet Volume 10.5 fl (9.2-11.8); Platelet Count Result 58 K/mm3 (150-420); Red Blood Count 2.74 M/mm3 (4.20-5.40); Red Cell Distribution Width 17.5 % (11.6-14.4); White Blood Count 6.8 K/mm3 (4.8-10.8)
[2023-10-07 17:03] LABS: Alanine Aminotransferase 16 U/L (14-59); Alkaline Phosphatase 83 U/L (46-116); Aspartate Amino Transferase 23 U/L (15-37); Bilirubin,Total 0.4 mg/dL (0.00-1.00); Blood Urea Nitrogen 26 mg/dL (7-18); Calcium 8.4 mg/dL (8.5-10.1); Chloride 105 mmol/L (98-108); Estimated Glomerular Filt Rate 39; Glucose 92 mg/dL (70-99); Osmolality Calculated 296 mOsm/kg (285-295); Potassium 4.1 mmol/L (3.5-5.1); Sodium 141 mmol/L (136-145); Thyroid Stimulating Hormone 4.43 uIU/mL (0.36-3.74)
[2023-10-07 18:49] LABS: Anion Gap 12 mmol/L (4-12); Carbon Dioxide 24 mmol/L (21-32)
[2023-10-08 01:28] LABS: Hemoglobin A1C 7.8 % (<5.7)
== END 2023-10-06 07:42 | disposition home or self-care (01) ==
LOC: CHSLAB 07:43
PROVIDERS: PCP Internal Medicine; Visit Provider Internal Medicine
DX: E11.9 Type 2 diabetes mellitus without complications (principal); I10 Essential (primary) hypertension
CPT/HCPCS: 36415; 80053; 83036; 84443; 85027

== ENCOUNTER 2023-11-05 11:40 | Outpatient (CLI) | payer MEDICARE, SELFPAY ==
[2023-11-05 12:14] LABS: Basophils Absolute Auto 0.04 K/mm3 (0.00-0.10); Basophils Percent Auto 0.8 % (0.0-1.0); Eosinophils Percent Auto 3.8 % (1.0-6.0); Hematocrit 23.3 % (35.0-42.0); Hemoglobin 7.3 g/dL (11.7-13.8); Immature Granulocyte Absolute 0.01 K/mm3 (0.00-0.00); Immature Granulocyte Percent A 0.2 % (0.0-0.0); Immature Platelet Fraction Pct 4.9 % (1.0-7.0); Lymphocytes Absolute Auto 2.09 K/mm3 (1.10-4.50); Lymphocytes Percent Auto 39.6 % (18.0-42.0); Mean Corpuscular HGB Conc 31.3 g/dL (32-36); Mean Corpuscular Hemoglobin 28.3 pg (27.0-31.0); Mean Corpuscular Volume 90.3 fL (78.0-102.0); Mean Platelet Volume 11.9 fl (9.2-11.8); Monocytes Absolute Auto 0.25 K/mm3 (0.10-0.90); Monocytes Percent Auto 4.7 % (2.0-11.0); Neutrophils Absolute Auto 2.69 K/mm3 (1.70-7.20); Neutrophils Percent Auto 50.9 % (50.0-70.0); Platelet Count Result 44 K/mm3 (150-420); Red Blood Count 2.58 M/mm3 (4.20-5.40); Red Cell Distribution Width 17.3 % (11.6-14.4); Reticulocyte Hemoglobin Conten 28.2 pg (28.0-35.0); Reticulocyte Percent 1.92 % (0.50-1.50); Reticulocytes Absolute 0.05 M/mm3 (0.02-0.10); White Blood Count 5.3 K/mm3 (4.8-10.8)
[2023-11-06 17:33] LABS: Iron 37 ug/dL (50-170); Lactate Dehydrogenase 175 U/L (81-234); Percent Iron Saturation 8 % (12-57)
[2023-11-07 03:49] LABS: Protein, Total 6.8 g/dL (6.1-8.1)
[2023-11-07 12:03] LABS: Abnormal Protein Band 1 0.9 g/dL (NONE DETECTED); Albumin 3.3 g/dL (3.8-4.8); Alpha 1 Globulin 0.4 g/dL (0.2-0.3); Alpha 2 Globulin 0.7 g/dL (0.5-0.9); Beta 1 Globulin 0.5 g/dL (0.4-0.6); Gamma Globulin 1.5 g/dL (0.8-1.7)
[2023-11-07 13:03] LABS: Kappa\\Lambda Light Chains 0.36 (0.26-1.65); Lambda Light Chain 79.9 mg/L (5.7-26.3)
[2023-11-07 15:19] LABS: Haptoglobin 89 mg/dL (43-212)
[2023-11-10 16:09] LABS: Erythropoietin (EPO) 48.3 mIU/mL (2.6-18.5)
[2023-11-19 13:59] LABS: Reference Lab Test Name CLL IGVH MUTATION
== END 2023-11-05 11:41 | disposition home or self-care (01) ==
PROVIDERS: PCP Internal Medicine; Visit Provider Internal Medicine Hematology
DX: C83.00 Small cell B-cell lymphoma, unspecified site (principal)
CPT/HCPCS: 36415; 82668; 83010; 83540; 83550; 83615; 83883; 84155; 84165; 85025; 85046; 85055; 86334; 86850; 86870; 86880; 86900; 86901; 86902; 86905; 86906; 88271; 88275

== ENCOUNTER 2023-11-20 07:33 | Outpatient (CLI) | payer MEDICARE, SELFPAY ==
--- NOTE | ~2023-11-20 | CT_ITS ---
EXAMINATION: CT chest abdomen pelvis w con DATE: 11/20/2023 08:26 INDICATION: Lymphoma, small lymphocytic. Anemia. TECHNIQUE: Computed tomography (CT) of the chest, abdomen, and pelvis was performed with 100 mL Omnip aque 350 intravenous contrast. Automated exposure control and iterative reconstruction technique were employed. The dose-length product was 563.99 mGy-cm. COMPARISON: CT chest, abdomen, and pelvis 05/07/2023, 06/24/19 FINDINGS: CHEST CT: There are widespread tree-in-bud opacities and centrilobular nodules involving all lobes. There is mi ld scarring in paraspinal right lower lobe. There is mild bronchiectasis in the inferior lungs. There is peripheral radiation fibrosis in anterior left lung. There is mucous plugging in left lower lobe. No pleural effusion. There is mild mediastinal and bilateral hilar lymphadenopathy, stable from . The heart size is normal. There are coronary artery calcifications. No pericardial effusion. Ther e are changes of lumpectomy in left breast. Chronic skin thickening in left breast is likely secondar y to radiation therapy. There is a healing fracture of right seventh rib. There is a chronic compress ion fracture of T12. There is moderate thoracic spondylosis. ABDOMEN/PELVIS CT: The liver demonstrates surface nodularity, consistent with cirrhosis. The gallbladder is absent. Ther e is severe splenomegaly. Calcifications in the spleen are consistent with old granulomatous disease. The pancreas and right adrenal gland are normal. There is a 2.4 cm mass in left adrenal gland, stabl e from 06/24/19, likely an adenoma. There is cortical thinning of the kidneys. There is a 4 mm cyst in right kidney. There is diverticulosis of the colon without evidence of diverticulitis. The appendix is not visualized. There is mild periportal lymphadenopathy, stable from 06/24/2019. There are borderl ine-enlarged gastrohepatic lymph nodes, worsened from 05/07/23. There is mild bilateral external iliac lymphadenopathy, stable from 06/24/19. For example, a right external iliac node measures 18 x 12 mm. T here is calcified atherosclerosis of the aorta and many of the other arteries. There is no free intra peritoneal fluid. There is severe lumbar spondylosis. IMPRESSION: 1. Diffuse lung disease involving all lobes with worsening from 05/07/23, likely chronic pneumonia such as Mycobacterium avium intracellulare (ELIER). 2. Stable mild lymphadenopathy in the chest, abdomen, and pelvis, which may be reactive lymphadenopat hy and/or lymphoma. 3. Cirrhosis of the liver with portal venous hypertension. Reviewed, dictated and finalized at location A. IMPRESSION: 1. Diffuse lung disease involving all lobes with worsening from 05/07/23, likely chronic pneumonia such as Mycobacterium avium intracellulare (ELIRE). 2. Stable mild lymphadenopathy in the chest, abdomen, and pelvis, which may be reactive lymphadenopathy and/or lymphoma. 3. Cirrhosis of the liver with portal venous hypertension.
[2023-11-20 07:56] LABS: Estimated Glomerular Filt Rate 37
== END 2023-11-20 07:34 | disposition home or self-care (01) ==
PROVIDERS: PCP Internal Medicine; Visit Provider Internal Medicine Hematology
DX: D64.9 Anemia, unspecified (principal); C83.00 Small cell B-cell lymphoma, unspecified site; R91.8 Other nonspecific abnormal finding of lung field; R59.0 Localized enlarged lymph nodes; K74.60 Unspecified cirrhosis of liver; K76.6 Portal hypertension
CPT/HCPCS: 71260; 74177; Q9967

== ENCOUNTER 2023-12-09 07:51 | Outpatient (RCR) | payer MEDICARE, SELFPAY ==
[2023-09-12 12:18] LABS: Immunoglobulin G 1104 mg/dL (600-1540)
[2023-10-13 15:26] LABS: Immunoglobulin G 1077 mg/dL (600-1540)
[2023-11-11 12:54] LABS: Immunoglobulin G 1038 mg/dL (600-1540)
[2023-12-10 12:59] LABS: Immunoglobulin G 1055 mg/dL (600-1540)
== END 2023-12-10 23:59 | disposition home or self-care (01) ==
LOC: CHSLAB 07:51
PROVIDERS: PCP Internal Medicine; Visit Provider Internal Medicine Pulmonary Disease
DX: D83.9 Common variable immunodeficiency, unspecified (principal)
CPT/HCPCS: 36415; 82784

== ENCOUNTER 2023-12-23 08:29 | Outpatient (CLI) | payer MEDICARE, SELFPAY ==
[2023-12-23 08:55] LABS: INR 1.2
== END 2023-12-23 08:30 | disposition home or self-care (01) ==
LOC: CHSLAB 08:31
PROVIDERS: PCP Internal Medicine; Visit Provider Internal Medicine Pulmonary Disease
DX: Z01.818 Encounter for other preprocedural examination (principal); D83.9 Common variable immunodeficiency, unspecified; R06.02 Shortness of breath; R91.1 Solitary pulmonary nodule
CPT/HCPCS: 36415; 85610

== ENCOUNTER 2024-01-19 12:01 | Outpatient (CLI) | payer MEDICARE, SELFPAY ==
--- NOTE | ~2024-01-19 | MM_ITS ---
EXAMINATION: MM screening justyn BI w juliane HISTORY: Screening mammogram TECHNIQUE: Craniocaudal and mediolateral oblique 3-D tomosynthesis images were obtained and synthetic 2-D images were generated. CAD analysis was submitted and interpreted. COMPARISON: 01/06/2023, 01/02/2022, 12/29/2020 BREAST PARENCHYMAL COMPOSITION:Dense: The breasts are extremely dense, which lowers the sensitivity o f mammography. FINDINGS: No suspicious mass, calcification, or architectural distortion are identified in either kelli ast to suggest malignancy. There has been no suspicious interval change. IMPRESSION: No mammographic evidence of malignancy. Recommend routine screening mammography in one year. BI-RADS Category 1: Negative Reviewed, dictated and finalized at location . 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
== END 2024-01-19 12:02 | disposition home or self-care (01) ==
LOC: CHSIMG 12:06
PROVIDERS: PCP Internal Medicine; Visit Provider Internal Medicine Hematology
DX: Z12.31 Encounter for screening mammogram for malignant neoplasm of breast (principal)
CPT/HCPCS: 77063; 77067

== ENCOUNTER 2024-01-23 10:07 | Emergency (ER) | payer MEDICARE, SELFPAY ==
[2024-01-23] VITALS (18 sets, daily range): BP systolic 136–144; BP diastolic 46–59; PULSE 61–70; RESP 13–20; TEMP 36.4–36.6; O2SAT 94–100
--- NOTE | ~2024-01-23 | CT_ITS ---
Clinical Indication: Elevated d-dimer, lower extremity swelling CT Scan of the Chest with Contrast: Technique: Contiguous sections were acquired throughout the chest after intravenous administration of 100 cc of Omnipaque 350. Dose reduction technique was used on this scan by utilizing automated expos ure control and iterative reconstruction technique. The dose-length product (DLP) was 556.18 mGy-cm. COMPARISON: 11/20/2023 Findings: There is no evidence of any significant mediastinal, hilar or axillary lymphadenopathy. There is no f illing defect in the pulmonary arterial tree to suggest pulmonary embolus. There is no evidence of ao rtic dissection or aneurysm. There is no evidence of pleural or pericardial effusion. Pulmonary evaluation is suboptimal due to respiratory motion artifact. Probable focal atelectasis or scarring in the right upper lobe. No suspicious pulmonary nodule or other consolidation evident. Images through the upper abdomen reveal stable 2.3 cm left adrenal nodule. There is splenomegaly with probable splenorenal varices, unchanged. There is diffusely, mildly nodular contour of the liver. Impression: No pulmonary embolus. No significant pulmonary abnormality seen. There is mild respiratory motion artifact which limits massimo luation. Findings from prior exam appear to be essentially completely resolved. Cirrhotic liver with splenomegaly and splenorenal varices. Stable 2.2 cm left adrenal nodule. Reviewed, dictated and finalized at [facility]. 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 No significant pulmonary abnormality seen. There is mild respiratory motion art ifact which limits evaluation. Findings from prior exam appear to be essentiall y completely resolved. Cirrhotic liver with splenomegaly and splenorenal varices. Stable 2.2 cm left adrenal nodule.
--- NOTE | ~2024-01-23 | CT_ITS ---
EXAMINATION: CT brain wo con DATE: 01/23/2024 11:15 INDICATION: Fall with head injury and facial abrasions TECHNIQUE: Computed tomography (CT) of the head was performed without intravenous contrast. Sagittal and coronal reconstructions were performed. The mA was adjusted according to patient size. Iterative reconstruction technique was employed. The dose-length product was 605.33 mGy-cm. COMPARISON: head CT dated 05/21/2021 FINDINGS: Small anterior left frontal scalp contusion. No fracture. No acute intracranial hemorrhage, acute inf arction or abnormal extra axial fluid collection. There is old scattered white matter hypoattenuation consistent with chronic small vessel ischemic dis ease. Symmetric prominence of the sulci consistent with mild age-appropriate diffuse cerebral volume loss. Ventricles are normal and symmetric. No mass/mass effect. Complete opacification of the bilater al maxillary sinuses with remodeling of the medial la of the sinuses which are thinned and mediall y bowed consistent with likely mucoceles. There is also near complete opacification of the bilateral sphenoid sinuses with thickened sclerotic la consistent with chronic sinusitis. Changes of bilater al intraocular lens replacement. Small effusion in the hyperpneumatized right mastoid. The left masto id air cells and bilateral middle ear cavities are clear. IMPRESSION: 1. Age-related changes the brain. No fracture or acute intracranial process. 2. Chronic sinusitis with expansion complete opacification of the bilateral maxillary sinus with alan deling and medial bowing of the medial la consistent with chronic mucoceles. Reviewed, dictated and finalized at location B. [employer] IMPRESSION: 1. Age-related changes the brain. No fracture or acute intracranial process. 2. Chronic sinusitis with expansion complete opacification of the bilateral max illary sinus with remodeling and medial bowing of the medial la consistent w ith chronic mucoceles.
--- NOTE | ~2024-01-23 | US_ITS ---
EXAMINATION: US venous doppler [facility] DATE: 01/23/2024 11:02 INDICATION: Bilateral lower limb swelling TECHNIQUE: Grayscale ultrasound images without and with compression and Doppler ultrasound images of the bilateral lower extremity veins were obtained. COMPARISON: None. FINDINGS: The visualized portions of right common femoral vein, profunda (deep) femoral vein, femoral vein, pop liteal vein, posterior tibial veins, peroneal veins, gastrocnemius vein and greater saphenous vein ou tflow are patent. The visualized portions of left common femoral vein, profunda femoral vein, femoral vein, popliteal v ein, posterior tibial veins, peroneal veins, gastrocnemius vein and greater saphenous vein outflow ar e patent. IMPRESSION: 1. No deep venous thrombosis in either lower limb. Reviewed, dictated and finalized at location B. ER BALL FINISHER
--- NOTE | ~2024-01-23 | XR_ITS ---
Right Hand Technique: PA, oblique, and lateral views were obtained. Clinical History: Pain Findings: No acute fracture or dislocation is seen. Osseous alignment is anatomic. Joint spaces are p reserved. Soft tissues are unremarkable. Impression: Unremarkable right hand. Reviewed, dictated and finalized at location M. CAL GLASS SAWYER Impression: Unremarkable right hand.
--- NOTE | ~2024-01-23 | XR_ITS ---
Left Hand Technique: PA, oblique, and lateral views were obtained. Clinical History: Pain Findings: No acute fracture or dislocation is seen. Osseous alignment is anatomic. Joint spaces are p reserved. Soft tissues are unremarkable. Impression: Unremarkable left hand. Reviewed, dictated and finalized at location M. ATING SCREEN OPERATOR Impression: Unremarkable left hand.
--- NOTE | ~2024-01-23 | CT_ITS ---
EXAMINATION: 1. CT facial & cervical spine wo DATE: 01/23/2024 11:15 INDICATION: Fall with head/facial injury TECHNIQUE: 1. Computed tomography (CT) of the maxillofacial region and of the cervical spine were performed with out intravenous contrast. Sagittal and coronal reconstructions of both regions were obtained. Automat ed exposure control and iterative reconstruction technique were employed. The dose-length product was 299.31 mGy-cm. COMPARISON: None. FINDINGS: Maxillofacial CT: Small anterior left frontal scalp contusion. No underlying calvarial fracture. No maxillofacial fract ures. Specifically the nasal bones, zygomatic arches, mandible and la of the orbits and paranasal sinuses are intact. There is diffuse near complete opacification of the paranasal sinuses. There is e xpansion of the bilateral maxillary sinuses with thinning and medial bowing of the medial la consi stent with chronic mucoceles. There is also sclerotic wall thickening about the bilateral sphenoid an d right frontal sinuses also consistent with chronic sinusitis. Changes of bilateral intraocular lens replacement. Orbits are otherwise normal. Nasal septum is midline. Cervical spine CT: Limited normal. Vertebral body heights are normal. No fracture. Moderate osteoarthritis at the atlant oaxial articulation with surrounding calcified pannus. Moderate disc height loss at C5-C6 and mild di sc height loss at the remainder of the cervical spine. Multilevel mild central canal stenosis resulti ng from disc bulges at C2-C3 through C7-T1. There is also multilevel moderate to severe cervical unco vertebral and facet osteoarthritis which contributes to moderate neural foraminal stenosis on the rig ht at C3-C4 through C5-C6 and mild neural foraminal stenosis the remainder of the cervical spine. Ath erosclerotic calcification is at the bilateral carotid bulbs. Cervical soft tissues are otherwise unr emarkable. Mild biapical pleural-parenchymal scarring. IMPRESSION: 1. Small anterior left frontal scalp contusion. No maxillofacial fractures. 2. Moderate cervical spondylosis with no acute osseous abnormality. 3. Chronic pansinusitis with expansion of the bilateral maxillary sinuses with thinning and medial lena wing of the medial la consistent with chronic mucoceles. Reviewed, dictated and finalized at location B. ERTY DISPOSAL OFFICER IMPRESSION: 1. Small anterior left frontal scalp contusion. No maxillofacial fractures. 2. Moderate cervical spondylosis with no acute osseous abnormality. 3. Chronic pansinusitis with expansion of the bilateral maxillary sinuses with thinning and medial bowing of the medial la consistent with chronic mucocele s.
--- NOTE | 2024-01-23 10:14 | ED_ITS ---
HPI - General Adult General Chief complaint: Fall Stated complaint: fall Source: patient Mode of arrival: ambulatory Limitations: no limitations History of Present Illness HPI narrative: 78-year-old white female in the parking lot here at the hospital coming in to get blood work and ultrasounds for venous Doppler ultrasounds for swelling to rule out DVT states she tripped fell forward hit her head causing a laceration of her forehead and upper lip and abrasions to the hands. patient says she missed a step tripped did not get dizzy or lightheaded. Denies any numbness or tingling or weakness Problems breathing cough fever. She is on antibiotic for recent lung infection. Scraped her right 2 fingers and her left index finger dorsally. tetanus immunization up-to-date. 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 pancytopenia hypoalbuminemia azotemia he anemia chronic with thrombocytopenia, chronic kidney disease stage IIIA chronic limb full C myc leak Ki Carly with worsening anemia thrombocytopenia splenomegaly hypogammaglobulinemia functional impairment cognitive impairment mild cardiac murmur unspecified cirrhosis appearance on his liver CT Related Data Home Medications Medication Instructions Recorded Confirmed allopurinol 100 mg tablet 100 mg BID 04/05/20 01/23/24 carvedilol 25 mg tablet 25 mg BID 04/05/20 01/23/24 hydrochlorothiazide 25 mg tablet 25 mg QAM 04/05/20 01/23/24 insulin NPH isoph U-100 human 100 See Rx Instructions .Route .COMPLEX 04/05/20 01/23/24 unit/mL subcutaneous suspension (Novolin N NPH U-100 Insulin isophane) montelukast 10 mg tablet 10 mg QAM 04/05/20 01/23/24 omeprazole 40 mg capsule,delayed 40 mg QAM 04/05/20 01/23/24 release simvastatin 20 mg tablet 20 mg PO HS 04/05/20 01/23/24 Allergies Allergy/AdvReac Type Severity Reaction Status Date / Time No Known Allergies Allergy Verified 01/23/24 11:03 Review of Systems Review of Systems: All systems reviewed & are unremarkable except as noted in HPI and below PMFSH Past Medical History Medical History Bronchitis Cellulitis of left hand Social History Social History Smoking status: Never smoker Second hand tobacco smoke exposure: No Alcohol intake: never Substance use: never Substance use type: does not use Living arrangements: alone Spiritual care concerns: No Exam Narrative: White Elderly female patient with mild apparent distress.? Head 2 cm laceration above the left eyebrow, upper lip with the 1 cm laceration through the lip to the mucosa. No dental injury..? nose has abrasion and contusion. Turbinates look normal no epistaxis. Eyes conjunctiva pink sclera nonicteric.? Extraocular movements are intact.? Ears externally normal.? TMs normal. Oropharynx is clear with moist mucous membranes without exudates.? Neck is supple nontender no lymphadenopathy.? Back is nontender.? Lungs are clear.? Heart is regular rate and rhythm with 3/6 systolic murmur, without gallops or rubs.? Chest wall nontender. left mastectomy. Abdomen is soft and nontender no hepatosplenomegaly or masses no CVA tenderness no abdominal bruits.? Extremities no cyanosis clubbing or edema.? Abrasions to the right 2nd 3rd finger right hand and left index finger dorsally superficial nontender with full range of motion of the hands and fingers. Skin is warm and dry without rashes or lesions.? Neurological patient is alert and oriented x4.? Motor and sensory grossly intact.? Gait is normal. Course Vital Signs Vital signs: Vital Signs Temperature 36.4 C 01/23/24 10:17 Pulse Rate 62 01/23/24 10:17 Respiratory Rate 18 01/23/24 10:17 Blood Pressure 143/55 H 01/23/24 10:17 Pulse Oximetry 100 01/23/24 10:17 Oxygen Delivery Room Air 01/23/24 10:17 Temperature 36.6 C 01/23/24 13:20 Pulse Rate 67 01/23/24 13:20 Respiratory Rate 20 01/23/24 13:20 Blood Pressure 144/50 H 01/23/24 13:20 Pulse Oximetry 97 01/23/24 13:20 Oxygen Delivery Room Air 01/23/24 13:20 Medical Decision Making MDM Narrative Medical decision making narrative: ?Patient placed in room: 7 ? History and physical was performed. Accu-Chek 230 Hard C-collar applied prior to going to x-ray venous Doppler ultrasound lower extremities was negative for DVT CTA chest PE study: no PE. Cirrhotic liver with splenomegaly and splenorenal varices. Stable 2.2 cm left adrenal nodule. CT head noncontrast: no active disease except for some sinusitis CT cervical spine and facial bones: Per radiologist 1. Small anterior left frontal scalp contusion. No maxillofacial fractures. 2. Moderate cervical spondylosis with no acute osseous abnormality. 3. Chronic pansinusitis with expansion of the bilateral maxillary sinuses with thinning and medial bowing of the medial la consistent with chronic mucoceles. X-ray right and left hand were both negative per radiologist Hemoglobin 7.8 hematocrit 23.8 platelets 46, normal (wbc's October 06 2023 H&H was 7.6 and 24.4 with 58 platelets) D-dimer 3.55 with normal coags.? Creatinine 1.21 with GFR 43 (was 1.38 and 37 on November 20, 2023) glucose 220 Osmo 298, albumin 2.8 and the rest her CMP was normal. Troponin was normal. Independent Historian: patient External Source Review: Differential Dx includes but not limited to: fracture PE anemia electrolyte imb alance myocardial infarction contusion Medications were Reviewed: home meds reviewed Medications given: A forehead laceration glued by nurse. Wound care given to abrasions Independently Interpreted by me: EKG shows sinus bradycardia at a rate of 58 normal axis T-wave inversion in lead V3 through V6 lead 2 lead 3 biphasic in V2 no acute ST segment abnormality impression abnormal EKG as independently interpreted by me. Shared decision Making:Evaluation discussed all questions were asked and answered and patient agree with the plan. Social Situation Impacting Patients Care: Discussed with Dr. MORGAN DIAGNOSIS: ground level fall laceration to forehead and upper lip contusion to the face abrasions to the fingers. DISPOSITION : Discharge home CONDITION AT DISCHARGEStable Vital Signs Vital Signs: Vital Signs Temperature 36.4 C 01/23/24 10:17 Pulse Rate 62 01/23/24 10:17 Respiratory Rate 18 01/23/24 10:17 Blood Pressure 143/55 H 01/23/24 10:17 Pulse Oximetry 100 01/23/24 10:17 Oxygen Delivery Room Air 01/23/24 10:17 Temperature 36.6 C 01/23/24 13:20 Pulse Rate 67 01/23/24 13:20 Respiratory Rate 20 01/23/24 13:20 Blood Pressure 144/50 H 01/23/24 13:20 Pulse Oximetry 97 01/23/24 13:20 Oxygen Delivery Room Air 01/23/24 13:20 Lab Data 01/23/24 10:34 01/23/24 10:34 Labs: Lab Results 01/23/24 01/23/24 01/23/24 Range/Units 10:32 10:33 10:34 WBC 6.0 (4.8-10.8) K/mm3 RBC 2.69 L (4.20-5.40) M/mm3 Hgb 7.8 L (11.7-13.8) g/dL Hct 23.8 L (35.0-42.0) % MCV 88.5 (78.0-102.0) fL MCH 29.0 (27.0-31.0) pg MCHC 32.8 (32-36) g/dL RDW 18.6 H (11.6-14.4) % Plt Count 46 L (150-420) K/mm3 MPV 11.9 H (9.2-11.8) fl % Immature Plt Fraction 3.4 (1.0-7.0) % ESR 65 H (0-20) mm/hr PT 12.1 (9.50-12.1) Seconds INR 1.1 APTT 29.5 (23.9-30.70) Sec D-Dimer 3.55 H* (0.19-0.50) mg/L Sodium 140 (136-145) mmol/L Potassium 3.8 (3.5-5.1) mmol/L Chloride 104 (98-108) mmol/L Carbon Dioxide 27 (21-32) mmol/L Anion Gap 9 (4-12) mmol/L BUN 18 (7-18) mg/dL Creatinine 1.21 H (0.55-1.02) mg/dL Estim Creat Clear Calc Not Reportable Estimated GFR 43 L (59 - ) Glucose 220 H (70-99) mg/dL POC Capillary Glucose 230 H (65-105) mg/dl Calculated Osmolality 298 H (285-295) mOsm/kg Calcium 8.6 (8.5-10.1) mg/dL Total Bilirubin 0.8 (0.00-1.00) mg/dL AST 19 (15-37) U/L ALT 15 (14-59) U/L Alkaline Phosphatase 109 (46-116) U/L Troponin I (0.00-60.4) ng/L NT-Pro-B Natriuret Pep 355 (0-450) pg/mL Total Protein 7.7 (6.4-8.2) g/dL Albumin 2.8 L (3.4-5.0) g/dL 01/23/24 Range/Units 10:42 WBC (4.8-10.8) K/mm3 RBC (4.20-5.40) M/mm3 Hgb (11.7-13.8) g/dL Hct (35.0-42.0) % MCV (78.0-102.0) fL MCH (27.0-31.0) pg MCHC (32-36) g/dL RDW (11.6-14.4) % Plt Count (150-420) K/mm3 MPV (9.2-11.8) fl % Immature Plt Fraction (1.0-7.0) % ESR (0-20) mm/hr PT (9.50-12.1) Seconds INR APTT (23.9-30.70) Sec D-Dimer (0.19-0.50) mg/L Sodium (136-145) mmol/L Potassium (3.5-5.1) mmol/L Chloride (98-108) mmol/L Carbon Dioxide (21-32) mmol/L Anion Gap (4-12) mmol/L BUN (7-18) mg/dL Creatinine (0.55-1.02) mg/dL Estim Creat Clear Calc Estimated GFR (59 - ) Glucose (70-99) mg/dL POC Capillary Glucose (65-105) mg/dl Calculated Osmolality (285-295) mOsm/kg Calcium (8.5-10.1) mg/dL Total Bilirubin (0.00-1.00) mg/dL AST (15-37) U/L ALT (14-59) U/L Alkaline Phosphatase (46-116) U/L Troponin I 43.5 (0.00-60.4) ng/L NT-Pro-B Natriuret Pep (0-450) pg/mL Total Protein (6.4-8.2) g/dL Albumin (3.4-5.0) g/dL Discharge Plan Discharge Clinical Impression: Fall from ground level, Abrasion of multiple fingers Forehead laceration Qualifiers: Encounter type: initial encounter Qualified Code(s): S01.81XA - Laceration without foreign body of other part of head, initial encounter Contusion of face Qualifiers: Encounter type: initial encounter Qualified Code(s): S00.83XA - Contusion of other part of head, initial encounter Laceration of lip Qualifiers: Encounter type: initial encounter Qualified Code(s): S01.511A - Laceration without foreign body of lip, initial encounter Anemia Qualifiers: Anemia type: unspecified type Qualified Code(s): D64.9 - Anemia, unspecified Patient Disposition: Home, Self-Care Condition: Stable Instructions: Laceration (ED), Concussion (ED), Abrasion (ED), Fall Prevention (ED) Additional Instructions: use hydrogen peroxide to your face & shins once or twice a day. Return if they look infected red hot painful swollen or fussy. He take Tylenol as needed for pain. Do not put any antibiotic ointment on your forehead laceration where it has been glued. Use Hydrogen peroxide on your lip laceration twice a day for 5 days. follow-up with your primary care provider next week. Return if you get worse or develops any new symptoms. Use walker whenever possible and user cane other times. Prescriptions: No Action tramadol 50 mg tablet 50 mg PO Q6H PRN (Reason: pain) Qty: 14 0RF carvedilol 25 mg tablet 25 mg BID allopurinol 100 mg tablet 100 mg BID omeprazole 40 mg capsule,delayed release(DR/EC) 40 mg QAM simvastatin 20 mg Tablet 20 mg PO HS Novolin N NPH U-100 Insulin 100 unit/mL suspension See Rx Instructions .ROUTE .COMPLEX Rx Instructions: 100 UNITS AND 80 UNITS AT NOC montelukast 10 mg tablet 10 mg QAM hydrochlorothiazide 25 mg tablet 25 mg QAM Follow-up/Referrals: Jonathon Nguyen MD [Primary Care Provider] - Time of Disposition: 13:42
--- NOTE | 2024-01-23 10:15 | ECG_ITS ---
Test Date: 2024-01-23 10:42:03 Measurements Intervals [place] Rate: 58 P: 82 [place]: 208 QRS: 26 QRSD: 88 T: 198 QT: 429 QTc: 424 Interpretive Statements SINUS BRADYCARDIA WITH FIRST DEGREE AV BLOCK ST-T WAVE ABNORMALITY IN DIFFUSE LEADS- CONSIDER ISCHEMIA BASELINE ARTIFACT- I, III, AVR, AVL, AVF, V1, V4-V6 ABNORMAL ECG No previous ECG available for comparison Electronically Signed On 01-23-2024 10:43:50 FEATHER BALER by Ayaz Del Valle D.O.
[2024-01-23 10:34] LABS: Glucose Point of Care 230 mg/dl (65-105)
--- NOTE | 2024-01-23 10:36 | PC.NURSE ---
blood glucose 230
[2024-01-23 10:38] LABS: Hematocrit 23.8 % (35.0-42.0); Hemoglobin 7.8 g/dL (11.7-13.8); Mean Corpuscular HGB Conc 32.8 g/dL (32-36); Mean Corpuscular Volume 88.5 fL (78.0-102.0); Mean Platelet Volume 11.9 fl (9.2-11.8); Platelet Count Result 46 K/mm3 (150-420); Red Blood Count 2.69 M/mm3 (4.20-5.40); Red Cell Distribution Width 18.6 % (11.6-14.4)
[2024-01-23 10:41] LABS: Immature Platelet Fraction Pct 3.4 % (1.0-7.0)
[2024-01-23 10:52] LABS: D Dimer 3.55 mg/L (0.19-0.50); INR 1.1; Partial Thromboplastin Time 29.5 Sec (23.9-30.70); Prothrombin Time 12.1 Seconds (9.50-12.1)
[2024-01-23 11:03] LABS: Troponin I 43.5 ng/L (0.00-60.4)
[2024-01-23 11:03] LABS: Alanine Aminotransferase 15 U/L (14-59); Albumin Level 2.8 g/dL (3.4-5.0); Alkaline Phosphatase 109 U/L (46-116); Anion Gap 9 mmol/L (4-12); Aspartate Amino Transferase 19 U/L (15-37); Bilirubin,Total 0.8 mg/dL (0.00-1.00); Blood Urea Nitrogen 18 mg/dL (7-18); Calcium 8.6 mg/dL (8.5-10.1); Carbon Dioxide 27 mmol/L (21-32); Chloride 104 mmol/L (98-108); Estimated Glomerular Filt Rate 43; Glucose 220 mg/dL (70-99); Osmolality Calculated 298 mOsm/kg (285-295); Potassium 3.8 mmol/L (3.5-5.1); Sodium 140 mmol/L (136-145); Total Protein 7.7 g/dL (6.4-8.2)
[2024-01-23 11:04] LABS: NT Pro B Type Natriuretic Pept 355 pg/mL (0-450)
--- NOTE | 2024-01-23 11:15 | PC.NURSE ---
1050 pt to ultrasound via stretcher
[2024-01-23 11:25] LABS: Erythrocyte Sedimentation Rate 65 mm/hr (0-20)
--- NOTE | 2024-01-23 11:26 | PC.NURSE ---
pt return from xray via stretcher, media monitor applied
--- NOTE | 2024-01-23 11:35 | PC.NURSE ---
no active bleeding from upper lip, gauze in place. call shepard in reach. pt denies need for pain medication at this time
--- NOTE | 2024-01-23 12:45 | PC.NURSE ---
C COLLAR REMOVED AT THIS TIME
--- NOTE | 2024-01-23 12:48 | PC.NURSE ---
PT ASKING HOW MUCH LONGER, EXPLAINED ALL TESTING NOW COMPLETED. DR CRUMP REVIEWING RESULTS. ASKED IF WANTING SOMEONE CALLED TO PICK HER UP. PT STATES IM DRIVING MYSELF HOME .
--- NOTE | 2024-01-23 13:00 | PC.NURSE ---
steady gait while walking across room with no assistance.
[2024-01-26 17:17] LABS: Hemoglobin A1C 6.8 % (<5.7)
== END 2024-01-23 13:50 | disposition home or self-care (01) ==
PROVIDERS: Emergency Provider Emergency Medicine; PCP Internal Medicine
DX: S01.81XA Laceration without foreign body of other part of head, initial encounter (principal); S01.511A Laceration without foreign body of lip, initial encounter; S60.410A Abrasion of right index finger, initial encounter; S60.412A Abrasion of right middle finger, initial encounter; S60.411A Abrasion of left index finger, initial encounter; M79.89 Other specified soft tissue disorders; E11.9 Type 2 diabetes mellitus without complications; I10 Essential (primary) hypertension; E78.5 Hyperlipidemia, unspecified; Z79.899 Other long term (current) drug therapy; Z79.4 Long term (current) use of insulin; W01.0XXA Fall on same level from slipping, tripping and stumbling without subsequent striking against object, initial encounter
CPT/HCPCS: 36415; 70450; 70486; 71275; 72125; 73130; 80053; 82948; 83036; 83880; 84484; 85027; 85055; 85380; 85610; 85652; 85730; 93005; 93970; 99284; L0150; Q9967

== ENCOUNTER 2024-02-03 14:15 | Outpatient (RCR) | payer MEDICARE, SELFPAY ==
[2024-01-06 13:02] LABS: Immunoglobulin G 785 mg/dL (600-1540)
[2024-02-04 12:43] LABS: Immunoglobulin G 1054 mg/dL (600-1540)
== END 2024-04-04 23:59 | disposition home or self-care (01) ==
LOC: CHSLAB 14:15
PROVIDERS: PCP Internal Medicine; Visit Provider Internal Medicine Pulmonary Disease
DX: D83.9 Common variable immunodeficiency, unspecified (principal)
CPT/HCPCS: 36415; 82784

== ENCOUNTER 2024-02-13 13:49 | Outpatient (CLI) | payer MEDICARE, SELFPAY ==
--- OUTSIDE RECORDS SUMMARY | 2024-02-13 13:53 | XMS_ITS ---
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 Name Role Phone ELYSE Red Unavailable [phone] Jonathon Nguyen Unavailable Unavailable BILL PEREZ Unavailable [phone] REASON FOR VISIT *General care Medications Medication SIG (Take, Route, Frequency, Duration) Notes Start Date End Date Status chondroitin sulfates 250 MG Oral Capsule ORAL chondroitin sulfates 250 MG Oral CapsuleOriginal Medicationchondroitin sulfates 250 MG Oral Capsule *Reorder from [employer] for eRx and Interaction Alerts* 07/20/2012 Active Glucosamine Sulfate 500 MG Oral Tablet ORAL glucosamine sulfate 500 MG Oral TabletOriginal Medicationglucosamine sulfate 500 MG Oral Tablet *Reorder from [employer] for eRx and Interaction Alerts* 07/20/2012 Active aspirin 81 MG Delayed Release Oral Tablet [Alexis Bittar Aspirin] ORAL aspirin 81 MG Delayed Release Oral Tablet [Alexis Bittar Aspirin]Original Medicationaspirin 81 MG Delayed Release Oral Tablet [Alexis Bittar Aspirin] *Reorder from [employer] for eRx and Interaction Alerts* 07/20/2012 Active Magnesium Gluconate 550 MG Oral Tablet ORAL magnesium gluconate 550 MG Oral TabletOriginal Medicationmagnesium gluconate 550 MG Oral Tablet *Reorder from [employer] for eRx and Interaction Alerts* 07/20/2012 Active Encounters Encounter Location Date Provider Diagnosis [address] [id number] 09/11/2023 BILL PEREZ Tinea unguium B35.1 ; Pain in right toe(s) M79.674 ; Pain in left toe(s) M79.675 ; Other hammer toe(s) (acquired), right foot M20.41 ; Other hammer toe(s) (acquired), left foot M20.42 ; Unspecified atherosclerosis of [place] arteries of extremities, bilateral legs I70.203 and Type 2 diabetes mellitus with other circulatory complications E11.59 Assessments Encounter Date Diagnosis (ICD Code) Assessment Notes Treatment Notes Treatment Clinical Notes Section Notes 09/11/2023 Tinea unguium (ICD-10 - B35.1) Aseptic debridement of elongated thickened nails x 10 using sterile nippers, nails were debrided in length and thickness by 30% utilizing a nail nipper without incident. The patient was educated regarding all treatment options that include topical and oral antifungal treatments. I discussed the options of taking a sample of the nail to confirm diagnosis. Nail clippings were not sent for pathology analysis. The patient was educated why and how the fungal infection evolved in their feet and the patient was given information regarding how to prevent further infection. The patient was told to keep feet dry and change socks. The patient was told to be careful with old shoes and excessive sweating. The patient was educated regarding both OTC and prescription treatments. 09/11/2023 Pain in right toe(s) (ICD-10 - M79.674) 09/11/2023 Pain in left toe(s) (ICD-10 - M79.675) 09/11/2023 Other hammer toe(s) (acquired), right foot (ICD-10 - M20.41) The patient was educated regarding how to mechanically stabilize their deformity. The patient was given education about shoe recommendations specific for the condition. The patient was educated about custom orthotics and how appropriate shoes and orthotics can prevent further worsening of the deformity. The patient was educated about how bad shoe habits can worsen the condition. NSAIDS, P.T., injections and other conservative treatments were discussed. Both surgical and non surgical treatments were discussed, but conservative options were emphasized. 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 Explained to patient the importance of keeping interdigital spaces dry, not walking bare foot, having supportive shoe gear, using moisturizer to skin on feet daily especially in winter months, and checking feet daily for any new lesions or areas suspicious of trauma infection or ulceration. Explained to patient to return to ED if any change in foot health associated with signs of systemic infection including but not limited to nausea, vomiting, fever. Plan Of Treatment Treatment Notes Assessment Notes Tinea unguium Aseptic debridement of elongated thickened nails x 10 using sterile nippers, nails were debrided in length and thickness by 30% utilizing a nail nipper without incident. The patient was educated regarding all treatment options that include topical and oral antifungal treatments. I discussed the options of taking a sample of the nail to confirm diagnosis. Nail clippings were not sent for pathology analysis. The patient was educated why and how the fungal infection evolved in their feet and the patient was given information regarding how to prevent further infection. The patient was told to keep feet dry and change socks. The patient was told to be careful with old shoes and excessive sweating. The patient was educated regarding both OTC and prescription treatments. Other hammer toe(s) (acquired), right fo ot The patient was educated regarding how to mechanically stabilize their deformity. The patient was given education about shoe recommendations specific for the condition. The patient was educated about custom orthotics and how appropriate shoes and orthotics can prevent further worsening of the deformity. The patient was educated about how bad shoe habits can worsen the condition. NSAIDS, P.T., injections and other conservative treatments were discussed. Both surgical and non surgical treatments were discussed, but conservative options were emphasized. Unspecified atherosclerosis of [place] arteries of extremities, bilateral legs Patient educated on risks and aggravating factors of PVD, including conservative treatment options such as a diet and exercise regimen to aid in slowing progression of vascular disease Type 2 diabetes mellitus wit h other circulatory complications Patient educated on proper diabetic foot care and the importance of tight glycemic control in regards to the prevention of diabetic manifestations and symptomatology in lower extremity. Explained to patient the importance of keeping interdigital spaces dry, not walking bare foot, having supportive shoe gear, using moisturizer to skin on feet daily especially in winter months, and checking feet daily for any new lesions or areas suspicious of trauma infection or ulceration. Explained to patient to return to ED if any change in foot health associated with signs of systemic infection including but not limited to nausea, vomiting, fever. Next Appt Details Follow Up: 3 Months, Reason: Provider Name:BILL PEREZ, 03/25/2024 10:40:00 AM, [address] [place] [address], [phone], Progress Notes * CICI HUTCHINSON KDOB:[birth year] (78 yo F)Acc No.[id number]:09/11/2023 Patient:?CICI HUTCHINSON Provider:?BILL PEREZ :1945???Age:78 Y???Sex:Female D ate:09/11/2023 Address:[address] [place] [address], [address] [place], [place] [id number] Subjective: * Chief Complaints: * ???1. *General care. * HPI: ???HPI:?General care?Patient presents to the office for diabetic foot care. Patient states that their nails are thickened, elongated and painful. Patient states that it is aggravated by shoe gear. Onset is gradual., Patient denies taking blood thinners., Date last seen by Dr. Maya was 05/2023. MA:aziza.? * ROS:?General / Constitutional:?Patient denies?weakness.?Respiratory:?Patient denies?chronic cough, shortness of breath, sputum production.?Cardiovascular:?Patient denies?chest pain, history of [place], irregular heartbeat.?Musculoskeletal:?Patient complains of?joint stiffness, hammertoes, flat feet/ planus.?Peripheral Vascular:?Patient denies?blanching of skin, cold extremities, decreased sensation in extremities.?Skin:?Patient complains of?nail changes, fungal nails.?Neurologic:?Patient denies?dizziness, gait abnormality, headache.? * Medical History:? * Medications:?Taking Magnesiu m Gluconate 550 MG Oral Tablet ORAL , Notes to Pharmacist: magnesium gluconate 550 MG Oral TabletOriginal Medicationmagnesium gluconate 550 MG Oral Tablet *Reorder from [employer] for eRx and Interaction Alerts*, Taking Glucosamine Sulfate 500 MG Oral Tablet ORAL , Notes to Pharmacist: glucosamine sulfate 500 MG Oral TabletOriginal Medicationglucosamine sulfate 500 MG Oral Tablet *Reorder from [employer] for eRx and Interaction Alerts*, Taking aspirin 81 MG Delayed Release Oral Tablet [Alexis Bittar Aspirin] ORAL , Notes to Pharmacist: aspirin 81 MG Delayed Release Oral Tablet [Alexis Bittar Aspirin]Original Medicationaspirin 81 MG Delayed Release Oral Tablet [Alexis Bittar Aspirin] *Reorder from [employer] for eRx and Interaction Alerts*, Taking chondroitin sulfates 250 MG Oral Capsule ORAL , Notes to Pharmacist: chondroitin sulfates 250 MG Oral CapsuleOriginal Medicationchondroitin sulfates 250 MG Oral Capsule *Reorder from [employer] for eRx and Interaction Alerts* Objective: * Examination: ???Physical Examination: ???Vascular: Dorsalis Pedis pulse noted at 1/4 right foot and 1/4 left foot and Posterior Tibial pulse noted at 1/4 right foot and 1/4 left foot, Capillary refill times noted to be less than three seconds x ten, Temperature gradient noted to be warm to cool to bilateral foot, pedal hair present to bilateral foot and no varicosities are noted ?Dermatologic: there are no open lesions, no signs of active clinical infection, no erythema noted, no ecchymoses, nails are elongated thickened and dystrophic with subungual debris x ten ?Musculoskeletal: there is pain to palpation onto nail plate x ten, no calf pain noted bilaterally, arch height noted at 2/5 non-weight bearing bilaterally, first metatarsophalangeal joint range of motion 30 deg non-weight bearing bilaterally, semi rigid fifth digit hammer toe deformity noted to bilateral foot ?Neurology: protective sensation intact to light touch bilateral digits one through five, vibratory sensation intact to first metatarsophalangeal joint bilaterally. Assessment: * Assessment: 1.?Tinea unguium - B35.1 (Pr imary)?2.?Pain in right toe(s) - M79.674?3.?Pain in left toe(s) - M79.675?4.?Other hammer toe(s) (acquired), right foot - M20.41?5.?Other hammer toe(s) (acquired), left foot - M20.42?6.?Unspecified atherosclerosis of [place] arteries of extremities, bilateral legs - I70.203?7.?Type 2 diabetes mellitus with other circulatory complications - E11.59? Plan: * Treatment: 2.?Other hammer toe(s) (acqu ired), right foot? Notes: The patient was educated regarding how to mechanically stabilize their deformity. The patient was given education about shoe recommendations specific for the condition. The patient was educated about custom orthotics and how appropriate shoes and orthotics can prevent further worsening of the deformity. The patient was educated about how bad shoe habits can worsen the condition. NSAIDS, P.T., injections and other conservative treatments were discussed. Both surgical and non surgical treatments were discussed, but conservative options were emphasized. ?? 3.?Unspecified atheroscleros is of [place] arteries of extremities, bilateral legs? Notes: Patient educated on risks and aggravating factors of PVD, including conservative treatment options such as a diet and exercise regimen to aid in slowing progression of vascular disease ?? 4.?Type 2 diabetes mellitus with other circulatory complications? Notes: Patient educated on proper diabetic foot care and the importance of tight glycemic control in regards to the prevention of diabetic manifestations and symptomatology in lower extremity. Explained to patient the importance of keeping interdigital spaces dry, not walking bare foot, having supportive shoe gear, using moisturizer to skin on feet daily especially in winter months, and checking feet daily for any new lesions or areas suspicious of trauma infection or ulceration. Explained to patient to return to ED if any change in foot health associated with signs of systemic infection including but not limited to nausea, vomiting, fever. ?? * Procedure Codes:?29256 DEBRI DE NAIL, 6 OR MORE, Modifiers: Q8 * Follow Up:?3 Months * Billing Information: * Visit Code:? * Procedure Codes:? 99570 DEBRIDE NAIL, 6 OR MORE. 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 Patient states that their nails are thickened, elongated and painful. Patient states that it is aggravated by shoe gear. Onset is gradual., Patient denies taking blood thinners., Date last seen by Dr. Maya was 05/2023. MA:mls Examination Category Sub-Category Detail Notes Category Not es Physical Examination Vascular: Dorsalis Pedis pulse noted at 1/4 right foot and 1/4 left foot and Posterior Tibial pulse noted at 1/4 right foot and 1/4 left foot, Capillary refill times noted to be less than three seconds x ten, Temperature gradient noted to be warm to cool to bilateral foot, pedal hair present to bilateral foot and no varicosities are noted Dermatologic: there are no open lesions, no signs of active clinical infection, no erythema noted, no ecchymoses, nails are elongated thickened and dystrophic with subungual debris x ten Musculoskeletal: there is pain to palpation onto nail plate x ten, no calf pain noted bilaterally, arch height noted at 2/5 non-weight bearing bilaterally, first metatarsophalangeal joint range of motion 30 deg non-weight bearing bilaterally, semi rigid fifth digit hammer toe deformity noted to bilateral foot Neurology: protective sensation intact to light touch bilateral digits one through five, vibratory sensation intact to first metatarsophalangeal joint bilaterally
--- OUTSIDE RECORDS SUMMARY | 2024-02-13 13:53 | XMS_ITS ---
Author Organization [facility] Address [address] [place], [place] [id number] Care Team Providers Care Analytical Statistician Name Role Phone ELYSE Red Unavailable [phone] Jonathon Nguyen Unavailable Unavailable BILL PEREZ Unavailable [phone] REASON FOR VISIT *General care Medications Medication SIG (Take, Route, Frequency, Duration) Notes Start Date End Date Status aspirin 81 MG Delayed Release Oral Tablet [Pixim Aspirin] ORAL aspirin 81 MG Delayed Release Oral Tablet [Pixim Aspirin]Original Medicationaspirin 81 MG Delayed Release Oral Tablet [Pixim Aspirin] *Reorder from [employer] for eRx and Interaction Alerts* 07/20/2012 Active chondroitin sulfates 250 MG Oral Capsule ORAL chondroitin sulfates 250 MG Oral CapsuleOriginal Medicationchondroitin sulfates 250 MG Oral Capsule *Reorder from [employer] for eRx and Interaction Alerts* 07/20/2012 Active Glucosamine Sulfate 500 MG Oral Tablet ORAL glucosamine sulfate 500 MG Oral TabletOriginal Medicationglucosamine sulfate 500 MG Oral Tablet *Reorder from [employer] for eRx and Interaction Alerts* 07/20/2012 Active Magnesium Gluconate 550 MG Oral Tablet ORAL magnesium gluconate 550 MG Oral TabletOriginal Medicationmagnesium gluconate 550 MG Oral Tablet *Reorder from [employer] for eRx and Interaction Alerts* 07/20/2012 Active Encounters Encounter Location Date Provider Diagnosis [address] [id number] 11/13/2023 BILL PEREZ Tinea unguium B35.1 ; Pain in right toe(s) M79.674 ; Pain in left toe(s) M79.675 ; Other hammer toe(s) (acquired), right foot M20.41 ; Other hammer toe(s) (acquired), left foot M20.42 ; Unspecified atherosclerosis of [place] arteries of extremities, bilateral legs I70.203 and Type 2 diabetes mellitus with other circulatory complications E11.59 Assessments Encounter Date Diagnosis (ICD Code) Assessment Notes Treatment Notes Treatment Clinical Notes Section Notes 11/13/2023 Tinea unguium (ICD-10 - B35.1) Aseptic debridement [...] educated regarding both OTC and prescription treatments. 11/13/2023 Pain in right toe(s) (ICD-10 - M79.674) 11/13/2023 Pain in left toe(s) (ICD-10 - M79.675) 11/13/2023 Other hammer toe(s) (acquired), right foot (ICD-10 [...] were discussed, but conservative options were emphasized. 11/13/2023 Other hammer toe(s) (acquired), left foot (ICD-10 - M20.42) 11/13/2023 Unspecified atherosclerosis of [place] arteries of extremities, 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) Patient educated on risks and aggravating factors of PVD, including conservative treatment options such as a diet and exercise regimen to aid in slowing progression of vascular disease 11/13/2023 Type 2 diabetes mellitus with other circulatory [...] conservative options were emphasized. Unspecified atherosclerosis of [place] arteries of extremities, bilateral legs Patient educated [...] Reason: Provider Name:BILL PEREZ, 03/25/2024 10:40:00 AM, [address] [place] [address], [phone], Progress Notes * CICI HUTCHINSON KDOB:[birth year] (78 yo F)Acc No.[id number]:11/13/2023 Patient:?CICI HUTCHINSON Provider:?BILL PEREZ :1945???Age:78 Y???Sex:Female D ate:11/13/2023 Address:[address] [place] [address], [address] Subjective: * Chief Complaints: * ???1. *General care. * HPI: ???HPI:?General care?Patient presents to the office for diabetic foot care. Patient states that their nails are thickened, elongated and painful. Patient states that it is aggravated by shoe gear. Onset is gradual., Patient denies taking blood thinners., Date last seen by Dr. Nguyen was 10/2023., Initials [facility].? * ROS:?General / Constitutional:?Patient denies?weakness.?Respiratory:?Patient denies?chronic cough, shortness of breath, sputum production.?Cardiovascular:?Patient denies?chest pain, history of [place], irregular heartbeat.?Musculoskeletal:?Patient complains of?joint stiffness, hammertoes, flat feet/ planus.?Peripheral Vascular:?Patient denies?blanching of skin, cold extremities, decreased sensation in extremities.?Skin:?Patient complains of?nail changes, fungal nails.?Neurologic:?Patient denies?dizziness, gait abnormality, headache.? * Medical History:? * Medications:?Taking Magnesiu m Gluconate 550 MG Oral Tablet ORAL , Notes to Pharmacist: magnesium gluconate 550 MG Oral TabletOriginal Medicationmagnesium gluconate 550 MG Oral Tablet *Reorder from [employer] for eRx and Interaction Alerts*, Taking Glucosamine Sulfate 500 MG Oral Tablet ORAL , Notes to Pharmacist: glucosamine sulfate 500 MG Oral TabletOriginal Medicationglucosamine sulfate 500 MG Oral Tablet *Reorder from [employer] for eRx and Interaction Alerts*, Taking aspirin 81 MG Delayed Release Oral Tablet [Pixim Aspirin] ORAL , Notes to Pharmacist: aspirin 81 MG Delayed Release Oral Tablet [Pixim Aspirin]Original Medicationaspirin 81 MG Delayed Release Oral Tablet [Pixim Aspirin] *Reorder from [employer] for eRx and Interaction Alerts*, Taking chondroitin sulfates 250 MG Oral Capsule ORAL , Notes to Pharmacist: chondroitin sulfates 250 MG Oral CapsuleOriginal Medicationchondroitin sulfates 250 MG Oral Capsule *Reorder from [employer] for eRx and Interaction Alerts* Objective: * [...] (acquired), left foot - M20.42?6.?Unspecified atherosclerosis of [place] arteries of extremities, bilateral legs - I70.203?7.?Type [...] were emphasized. ?? 3.?Unspecified atheroscleros is of [place] arteries of extremities, bilateral legs? Notes: Patient [...] to nausea, vomiting, fever. ?? * Procedure Codes:?35560 DEBRI DE NAIL, 6 OR MORE, Modifiers: Q8 * Follow Up:?3 Months * Billing Information: * Visit Code:? * Procedure Codes:? 33782 DEBRIDE NAIL, 6 OR MORE. 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 Patient states that their nails are thickened, elongated and painful. Patient states that it is aggravated by shoe gear. Onset is gradual., Patient denies taking blood thinners., Date last seen by Dr. Nguyen was 10/2023., Initials [facility] Examination Category Sub-Category Detail Notes Category Not [...]
--- OUTSIDE RECORDS SUMMARY | 2024-02-13 13:53 | XMS_ITS ---
Author Organization [facility] Address [address] [place], [place] [id number] Care Team Providers Care [employer] Service Unit Operator Name Role Phone ELYSE Red Unavailable [phone] Jonathon Nguyen Unavailable Unavailable BILL PEREZ Unavailable [phone] REASON FOR VISIT *General care Medications Medication SIG (Take, Route, Frequency, Duration) Notes Start Date End Date Status chondroitin sulfates 250 MG Oral Capsule ORAL chondroitin sulfates 250 MG Oral CapsuleOriginal Medicationchondroitin sulfates 250 MG Oral Capsule *Reorder from [employer] for eRx and Interaction Alerts* 07/20/2012 Active aspirin 81 MG Delayed Release Oral Tablet [Katelyn Aspirin] ORAL aspirin 81 MG Delayed Release Oral Tablet [TranscribeMe Aspirin]Original Medicationaspirin 81 MG Delayed Release Oral Tablet [TranscribeMe Aspirin] *Reorder from [employer] for eRx and Interaction Alerts* 07/20/2012 Active Glucosamine Sulfate 500 MG Oral Tablet ORAL glucosamine sulfate 500 MG Oral TabletOriginal Medicationglucosamine sulfate 500 MG Oral Tablet *Reorder from [employer] for eRx and Interaction Alerts* 07/20/2012 Active Magnesium Gluconate 550 MG Oral Tablet ORAL magnesium gluconate 550 MG Oral TabletOriginal Medicationmagnesium gluconate 550 MG Oral Tablet *Reorder from [employer] for eRx and Interaction Alerts* 07/20/2012 Active Encounters Encounter Location Date Provider Diagnosis [facility] [address] [place], [place] [id number] 01/22/2024 BILL PEREZ Tinea unguium B35.1 ; Pain in right toe(s) M79.674 ; Pain in left toe(s) M79.675 ; Other hammer toe(s) (acquired), right foot M20.41 ; Other hammer toe(s) (acquired), left foot M20.42 ; Unspecified atherosclerosis of [place] arteries of extremities, bilateral legs I70.203 and Type 2 diabetes mellitus with other circulatory complications E11.59 Assessments Encounter Date Diagnosis (ICD Code) Assessment Notes Treatment Notes Treatment Clinical Notes Section Notes 01/22/2024 Tinea unguium (ICD-10 - B35.1) Aseptic debridement [...] educated regarding both OTC and prescription treatments. 01/22/2024 Pain in right toe(s) (ICD-10 - M79.674) 01/22/2024 Pain in left toe(s) (ICD-10 - M79.675) 01/22/2024 Other hammer toe(s) (acquired), right foot (ICD-10 [...] were discussed, but conservative options were emphasized. 01/22/2024 Other hammer toe(s) (acquired), left foot (ICD-10 - M20.42) 01/22/2024 Unspecified atherosclerosis of [place] arteries of extremities, 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) Patient educated on risks and aggravating factors of PVD, including conservative treatment options such as a diet and exercise regimen to aid in slowing progression of vascular disease 01/22/2024 Type 2 diabetes mellitus with other circulatory [...] conservative options were emphasized. Unspecified atherosclerosis of [place] arteries of extremities, bilateral legs Patient educated [...] Reason: Provider Name:BILL PEREZ, 03/25/2024 10:40:00 AM, [address] [place] [address], [phone], Progress Notes * CICI HUTCHINSON KDOB:[birth year] (78 yo F)Acc No.[id number]:01/22/2024 Patient:?CICI HUTCHINSON Provider:?BILL PEREZ :1945???Age:78 Y???Sex:Female D ate:01/22/2024 Address:[address] [place] [address], [id number] Subjective: * Chief Complaints: * ???1. *General care. * HPI: ???HPI:?General care?Patient presents to the office for diabetic foot care. Patient states that their nails are thickened, elongated and painful. Patient states that it is aggravated by shoe gear. Onset is gradual., Patient denies taking blood thinners., Date last seen by Dr. Nguyen was 01/2024., Initials [facility].? * ROS:?General / Constitutional:?Patient denies?weakness.?Respiratory:?Patient denies?chronic cough, shortness of breath, sputum production.?Cardiovascular:?Patient denies?chest pain, history of NM, irregular heartbeat.?Musculoskeletal:?Patient complains of?joint stiffness, hammertoes, flat feet/ planus.?Peripheral Vascular:?Patient denies?blanching of skin, cold extremities, decreased sensation in extremities.?Skin:?Patient complains of?nail changes, fungal nails.?Neurologic:?Patient denies?dizziness, gait abnormality, headache.? * Medical History:? * Medications:?Taking Magnesiu m Gluconate 550 MG Oral Tablet ORAL , Notes to Pharmacist: magnesium gluconate 550 MG Oral TabletOriginal Medicationmagnesium gluconate 550 MG Oral Tablet *Reorder from [facility] for eRx and Interaction Alerts*, Taking Glucosamine Sulfate 500 MG Oral Tablet ORAL , Notes to Pharmacist: glucosamine sulfate 500 MG Oral TabletOriginal Medicationglucosamine sulfate 500 MG Oral Tablet *Reorder from [facility] for eRx and Interaction Alerts*, Taking aspirin 81 MG Delayed Release Oral Tablet [TranscribeMe Aspirin] ORAL , Notes to Pharmacist: aspirin 81 MG Delayed Release Oral Tablet [TranscribeMe Aspirin]Original Medicationaspirin 81 MG Delayed Release Oral Tablet [TranscribeMe Aspirin] *Reorder from [facility] for eRx and Interaction Alerts*, Taking chondroitin sulfates 250 MG Oral Capsule ORAL , Notes to Pharmacist: chondroitin sulfates 250 MG Oral CapsuleOriginal Medicationchondroitin sulfates 250 MG Oral Capsule *Reorder from [facility] for eRx and Interaction Alerts* Objective: * Vitals:? * Examination: ???Physical Examination: ???Vascular: Dorsalis Pedis [...] * Assessment: 1.?Tinea unguium - B35.1 (Pr imary)???2.?Pain in right toe(s) - M79.674???3.?Pain in left toe(s) - M79.675???4.?Other hammer toe(s) (acquired), right foot - M20.41???5.?Other hammer toe(s) (acquired), left foot - M20.42???6.?Unspecified atherosclerosis of [place] arteries of extremities, bilateral legs - I70.203???7.?Type 2 diabetes mellitus with other circulatory complications - E11.59??? Plan: * Treatment: 2.?Other hammer toe(s) (acqu [...] were emphasized. ?? 3.?Unspecified atheroscleros is of [place] arteries of extremities, bilateral legs? Notes: Patient [...] to nausea, vomiting, fever. ?? * Procedure Codes:?37735 DEBRI DE NAIL, 6 OR MORE, Modifiers: Q8 * Follow Up:?3 Months * Billing Information: * Visit Code:? * Procedure Codes:? 42820 DEBRIDE NAIL, 6 OR MORE. Modifiers: Q8 * ING AND REGULATING TECHNICIAN Sign off status: Completed true * Provider:SUN PEERZ Date:?01/22/2024 Generated for Rigoberto smith/Adali/Ronyitting on:?02/13/2024 01:53 PM TESTING AND REGULATING TECHNICIAN History and Physical Notes * HPI (History of Present Illness) Category Sub-Category Detail Notes Category Not es HPI General care Patient presents to the office for diabetic foot care. Patient states that their nails are thickened, elongated and painful. Patient states that it is aggravated by shoe gear. Onset is gradual., Patient denies taking blood thinners., Date last seen by Dr. Nguyen was 01/2024., Initials [facility] Examination Category Sub-Category Detail Notes [...]
--- OUTSIDE RECORDS SUMMARY | 2024-02-13 13:53 | XMS_ITS | Data Portability ---
Author Organization [place] [facility], Main Office Address [address] [place] [address] Care Team Providers Care Biomedical Service Engineer Name Role Phone KEANU SANTIAGO Primary Care Provider [phone] KEANU SANTIAGO Referring Provider Assessment Encounter Date Assessment Date Assessment LastModified by Organization Details LastModified Time 01/31/2023 01/31/2023 Impression: Patient has a vertical marginal fracture lateral margin of the right patella from a fall. This should be a stable injury and we will lower to be weight-bearing as tolerated with the walker with front wheels using a brace to keep her knee from buckling and to avoid having her use the extensor mechanism to squat. The brace she has is not ideal for her. She has very thin skin over her Achilles tendon and the posterior stays at this a mobilizer go right to the distal edge in taking in little bit. Her skin is intact but I worry about skin breakdown particularly with her absent pulses neuropathy and diabetes. I have placed her into a La couple hinged knee brace that has no stay in the back the knee but will lock her knee in full extension we gave her the shoulder sized she was more comfortable in that. I have talked her about the risk of blood clots I would recommend she take a chewable aspirin 81 mg twice daily 1 in the morning when the evening to reduce the risk of blood clot and if she develops significant swelling in the right leg she will need to call us and for ranging ultrasound to rule out blood clot this was discussed with patient and her son I recommend that she elevate the leg at rest. I would recommend she wear the brace whenever she is out of bed. While she is in bed if she would like to have the brace off she may as long as she would be able to put the brace on before getting out bed the neck can be problematic for people to have to get up quickly go to the bathroom. I will see her back in 1 month to assess her progress we will obtain x-rays of the right knee at that time she has any problems the meantime she will call. 30 minutes were spent total care this patient more than half the time spent in [id number] care. Not available 02/01/2023 14:31:51 03/07/2023 03/07/2023 HPI: Patient returns. She is now 6 weeks out from her right patella fracture. It is a vertical fracture lateral margin of the patella. She has been in a brace locked in extension for last month. At this point she is having no symptoms in the knee. She has been walking full weight-bearing without symptoms. Physical exam: Patient is completely nontender to the patella today. She has range of motion from 0- 115?? without any discomfort. She has no increased swelling lower extremities. Impression: Patient is right patella fracture appears to be healing on the x-rays. It is not completely healed yet. She has absolutely no tenderness to palpation today. So I think she does have healing. She may start to wean out of the brace at this point. I advised her to continue using the walker on a full-time basis. We do not want her to have a give-way episode fall or we aggravate or re-injure the patella. She has only 2 steps at home to get in and out of the house and she only does the steps when absolutely necessary. See her back in 3 weeks with 1 last x-ray at that time. 20 minutes was spent treatment patient more half of this [id number] conversation Not available 03/07/2023 12:20:35 03/28/2023 03/28/2023 HPI: Patient returns. She is here for follow-up of her right patella fracture. She is now 9 weeks out. She is having no symptoms in the knee. She is back to all normal activities without any complaints. Physical exam: Patient is walking very well today. There is no effusion in the knee. There is Absolutely no tenderness to palpation of the patella at the fracture area. Impression: Patient is now 9 weeks out from far lateral patella fracture best seen on the sunrise view. At this point she is having no symptoms. I would suspect that may not heal completely with bony union. This point she is asymptomatic. The area that has been fractured is not in the articular surface so I do not think that it needs to be continued to monitor. Even if it does go on to a nonunion at this point it is already asymptomatic and nothing needs to be done further with it. We will see her back as needed. Not available 03/28/2023 16:33:35 Plan of Treatment Reminders Order Date Submit Date Provider Last Modified By Organization Details Last Modified Time Details Appointments None record ed. Lab None record ed. Referral None record ed. Procedures None record ed. Surgeries None record ed. Imaging XR, knee 024 03/07/19 24 [email or web address] [facility] [place], [address], [place], [address], 4 12:21:50 XR, knee 024 03/28/19 24 [email or web address] [facility] [place], [address], [place], [address], 4 16:37:40 Medication Orders None record ed. Patient TargetsNo targets recorded. Patient InstructionsNo instructions recorded. Reason for Referral None Reported. Results Created Date Observation Date Name Description Value Unit Range Abnormal Flag Note LastModifiedBy Organization Detail LastModifiedTime 06/07/19 22 XR, hand No observ ation record ed. [id number] [facility] [place] [address], [place], [address], 05/02/2022 01:01:26 06/07/19 22 XR, shoul karlie No observ ation record ed. [id number] [facility] [place] [address], [place], [address], 05/02/2022 01:01:26 06/21/19 22 XR, humer us No observ ation record ed. [id number] [facility] [place] [address], [place], [address], 05/02/2022 01:01:26 07/05/19 22 XR, hand No observ ation record ed. [id number] [facility] [place] [address], [place], [address], 05/02/2022 01:01:26 07/05/19 22 XR, shoul karlie No observ ation record ed. [id number] [facility] [place] [address], [place], [address], 05/02/2022 01:01:26 07/28/19 22 07/27/2021 XR, shoul karlie No observ ation record ed. [id number] [facility] [place] [address], [place], [address], 05/02/2022 01:01:26 01/30/20 23 XR, knee No observ ation record ed. [email or web address] Not Available 2022 16:59:15 03/07/19 24 XR, knee No observ ation record ed. [facility] [place] [address], [place], [address], 03/07/2023 12:18:44 03/28/19 24 XR, knee No observ ation record ed. [facility] [place] [address], [place], [address], 03/28/2023 16:31:08 Result Notes None recorded. Problems Name Problem SNOMED Code Status Onset Date Resolution Date Notes Provider Name and Address Organization Details Recorded Time Pain of right shoulder joint 90584027444128 100 Active 2021 Not Available [facility] 3 00:59:39 Fracture of phalanx of finger 41749823 Active 2021 Not Available [facility] 3 00:59:39 Pain of left hand 51684357724481 3 Active 2021 Not Available [facility] 3 00:59:39 Closed fracture of upper end of humerus 38760549 Active 2021 Not Available [facility] 3 00:59:40 Pain of right knee joint 50202842785234 0 Active 2022 NAPOLEON Wan, [facility] 3 12:25:42 Fracture of ankle 29584066 Active 2023 NAPOLEON Wan, [facility] 4 10:58:49 Closed fracture of right patella 42224477328553 100 Active 2023 MONA Red [address] [place] [address], [facility] [address], [place], [address] , [facility] 4 11:35:53 Problem Notes None recorded. Procedures Surgical History Date Name Laterality Status Provider Name and Address Organization Details Recorded Time Breast Surgery completed Not Available [facility] 05/02/2022 00:58:24 procedure on hand completed Not Available [facility] 05/02/2022 00:58:24 Cataract Surgery completed Not Available [facility] 05/02/2022 00:58:24 Imaging Results Imaging Date Name Status LastModified by [facility] Details LastModified Time 06/06/2021 XR, hand completed [id number] [facility] [place] [address], [place], [address], 05/02/2022 01:01:26 06/06/2021 XR, shoulder completed [id number] [facility] [place] [address], [place], [address], 05/02/2022 01:01:26 06/20/2021 XR, humerus completed [id number] 026 [facility] [place] [address], [place], [address], 05/02/2022 01:01:26 07/27/2021 XR, shoulder completed [id number] 30 [id number] [facility] [place] [address], [place], [address], 05/02/2022 01:01:26 07/04/2021 XR, hand completed [id number] [facility] [place] [address], [place], [address], 05/02/2022 01:01:26 07/04/2021 XR, shoulder completed [id number] [facility] [place] [address], [place], [address], 05/02/2022 01:01:26 01/29/2023 XR, knee completed [email or web address] Information no t available 01/29/2023 16:59:15 03/07/2023 XR, knee completed [facility] [place] [address], [address], 03/07/2023 12:18:44 03/28/2023 XR, knee completed [facility] [place] [address], [place], [address], 03/28/2023 16:31:08 Procedure Notes None recorded. Medical Equipment None Reported. Medications Name Sig Start Date Stop Date Status Note LastModified by Organization Details LastModified Time amoxicillin 500 mg capsule active Not Available Not Available Not Available Sure Comfort Insulin Syringe 0.5 mL 30 gauge x 07/16 active Not Available Not Available Not Available carvedilol 25 mg tablet active Not Available Not Available Not Available nystatin 100,000 unit/mL oral suspension 04/06 /2022 completed Not Available Not Available Not Available prednisone 10 mg tablet 06/06 completed Not Available Not Available Not Available azithromyci n 250 mg tablet 05/23 completed Not Available Not Available Not Available Novolin N NPH U-100 Insulin isophane 100 unit/mL subcutaneou s susp active Not Available Not Available Not Available fluconazole 150 mg tablet 05/23 completed Not Available Not Available Not Available allopurinol 100 mg tablet active Not Available Not Available Not Available omeprazole 40 mg capsule,del ayed release active Not Available Not Available Not Available SF 1.1 % dental gel 06/06 completed Not Available Not Available Not Available tramadol 50 mg tablet active Not Available Not Available No t Available Sure Comfort Insulin Syringe 1 mL 28 gauge x 1/2 active Not Available Not Available Not Available magnesium oxide 400 mg (241.3 mg magnesium) tablet Take by oral route. 01/31 completed Not Available Not Available Not Available benzonatate 100 mg capsule 05/23 completed Not Available Not Available Not Available doxycycline monohydrate 100 mg capsule 03/07 completed Not Available Not Available Not Available simvastatin 20 mg tablet active Not Available Not Available Not Available montelukast 10 mg tablet active Not Available Not Available Not Available hydrochloro thiazide 25 mg tablet Take 1 tablet every day by oral route. active Not Available Not Available No t Available gabapentin 100 mg capsule active Not Available Not Available Not Available ipratropium bromide 42 mcg (0.06 %) nasal spray 03/07 completed Not Available Not Available Not Available cefdinir 300 mg capsule active Not Available Not Available Not Available doxycycline hyclate 100 mg tablet 05/23 completed Not Available Not Available Not Available Tubersol 1 unit/0.1 mL intradermal injection solution Inject by intraderm al route. 2021 active Not Available Not Available Not Avai lable azithromyci n 500 mg tablet 05/23 completed Not Available Not Available Not Available memantine 10 mg tablet 01/31 completed Not Available Not Available Not Available PreviDent 5000 Sensitive 1.1 %-5 % dental paste active Not Available Not Available Not Available melatonin 10 mg tablet Take by oral route. 2021 active Not Available Not Available Not Avai lable TRUEplus Insulin 1 mL 30 gauge x 5/16 syringe active Not Available Not Available Not Available True Metrix Glucose Test Strip 06/20 completed Not Available Not Available Not Available Breztri Aerosphere 2021 active Not Available Not Available Not Avai lable Paxlovid 300 mg (150 mg x 2)-100 mg tablets in a dose pack TK 2 NIRMATREL VIR TS AND 1 RITONAVIR T TOGETHER PO BID FOR 5 DAYS BID FOR 5 DAYS 03/07 completed Not Available Not Available Not Available Vitals Date Recorded Body height Provider Name an d Address Organization Details Last Updated DateTime 07/04/2021 144.78 cm Not Available [facility] 3 00:58:55 Date Recorded Body height Provider Name an d Address Organization Details Last Updated DateTime 07/27/2021 144.78 cm Not Available [facility] 3 00:58:55 Date Recorded Body height Body mass index (BMI) Body weight Provider Name and Address Organization Details Last Updated DateTime 01/31/2023 144.78 cm 32.9 kg/m2 [address]72.[address] [facility] [facility] 01/31/2023 12:39:06 Date Recorded Body height Provider Name an d Address Organization Details Last Updated DateTime 03/07/2023 144.78 cm Krys Campos Mary Jo [facility] [employer] [facility] 03/07/2023 10:57:14 Date Recorded Body height Provider Name an d Address Organization Details Last Updated DateTime 03/28/2023 144.78 cm Michela Crowellmons [facility] [employer] [facility] 03/28/2023 14:13:14 Social History Question Answer Notes LastModified by Organizat ion Details LastModified Time Tobacco Smoking Status Never Smoker Not Available [facility] 05/02/2022 00:58:03 What Is Your Level Of Alcohol Consumption? None [id number] Information not available 05/02/2022 Sex: Unknown Functional Status None recorded. Mental Status None recorded. Family History Relationship Description Onset Age of this Age Resolved Age Notes LastModified by Organization Details LastModified Time Father Hypertensive disorder [id number] Not available 05/02/2022 00:58:26 Father Diabetes mellitus [id number] Not available 05/02/2022 00:58:26 Mother Hypertensive disorder [id number] Not available 05/02/2022 00:58:26 Mother Diabetes mellitus [id number] Not available 05/02/2022 00:58:26 Medical History Condition Response BLINDNESS N KIDNEY STONES N MRSA N CARPAL TUNNEL SYNDROME N LUNG DISEASE/DISORDER N HISTORY OF DRUG ABUSE N COPD N RADIATION / CHEMOTHERAPY N SPORTS INJURY N ANKLE PAIN N BLOOD DISEASES N SCHIZOPHRENIA N SHINGLES N BOWEL PROBLEMS N SHOULDER PAIN N DEPRESSION (INCLUDING POST ) N STROKE/TIA N ULCERS N KNEE PAIN N BENIGN PROSTATIC HYPERPLASIA N OBESITY N GERD/NAUSEA N ANEURYSM N URINARY/BLADDER/KIDNEY PROBLEMS N CORONARY ARTERY DISEASE (CAD) N ADDICTION CONCERNS N USE OF BLOOD THINNERS N SKIN PROBLEMS N EMPHYSEMA N MUSCLE,JOINT OR BONE PROBLEMS N DVT N STOMACH ULCERS N BLOOD CLOTS N USE OF NSAIDS N CONCUSSION OR SPINAL TRAUMA N NEUROPATHY N AIDS/HIV N FRACTURES N ELBOW PAIN N HYPERTENSION N TOURETTE'S N ANXIETY DISORDER N Metal allergy N BLOOD TRANSFUSION N ANEMIA/BLOOD DISORDER N BIPOLAR DISORDER N BRONCHITIS N OSTEOARTHRITIS N TUBERCULOSIS N FOOT PROBLEM N HEART VALVE DISORDERS N ALLERGIES/HAYFEVER N SOFT TISSUE INJURY N INFECTIOUS DISEASE N HEART ARRHYTHMIA N INSOMNIA N RHEUMATOID ARTHRITIS N HIGH CHOLESTEROL / HYPERLIPIDEMIA N EDEMA N CHRONIC PAIN SYNDROME N CAROTID BLOCKAGE N BACK / NECK PROBLEMS N HAVE YOU BEEN HOSPITALIZED OR SEEN IN [facility] IN THE PAST YEAR ? N BURSITIS N HERNIATED DISC N DIALYSIS N FIBROMYALGIA N OSTEOPOROSIS N ARTHRITIS N NO SIGNIFICANT PAST MEDICAL HISTORY N PERIPHERAL NEUROPATHY N DIABETES, TYPE Y HEARTBURN / REFLUX N HEPATITIS / LIVER DISEASE N GOUT Y SLEEP DISORDER N ALZHEIMER'S DISEASE N HERPES N SEIZURES/EPILEPSY N HEADACHES/MIGRAINES N VASCULAR DISEASE N HIP PAIN N Blood Disorder N DIZZINESS N HEAD TRAUMA OR INJURY N HEART DISEASE/HEART PROBLEMS N MULTIPLE SCLEROSIS N CARDIAC ARRHYTHMIA N CANCER: SPECIFY N ANESTHESIA COMPLICATIONS N ATRIAL FIBRILLATION N AUTOIMMUNE DISEASE N Gynecological HistoryNo gynecological history recorded. Obstetrics History GPAL:G 0 P 0 0 0 0 Past Encounters Encounter ID Performer Location Encounter Start Date Encounter Closed Date Diagnosis/Indication Diagnosis SNOMED-CT Code Diagnosis ICD10 Code [id number] [facility] [place] [address] [place] [address] 05/23/2021 00:00:00 05/27/2021 12:10:32 [id number] [facility] [place] [address] [place] [address] 06/06/2021 00:00:00 06/06/2021 14:59:59 [id number] [facility] [place] [address] [place] [address] 06/20/2021 00:00:00 06/20/2021 10:31:52 [id number] [facility] [place] [address] [place] [address] 07/04/2021 00:00:00 07/04/2021 17:33:55 [id number] [facility] [place] [address] [place] [address] 07/27/2021 00:00:00 07/30/2021 17:54:03 [id number] Christian Olsen MD [facility] [place] [address] [place] [address] 01/31/2023 12:01:28 02/03/2023 10:53:27 Pain of right knee joint 2477513925 65745 M25.886 [id number] MONA Red [facility] [place] [address] [place] [address] 03/07/2023 10:46:53 03/07/2023 12:21:50 Closed fracture of right patella 3666777984 6158613 S82.001A [id number] MONA Red [facility] [place] [address] [place] [address] 03/28/2023 14:03:48 03/28/2023 16:37:40 Pain of right knee joint 5316059221 70857 M25.561 Health Concerns Section Related Observation LastModified by Organization Detai ls LastModified Time None Recorded Concern Status LastModified by Organization Details LastModified Time None Recorded Advance Directives Directive None Recorded Payers Encounter Date Sequence Insurance Name Policy Number Policy Guerrero Covered Member ID Guerrero Member ID Guarantor Name 01/31/2023 1 [place] Elayne Salmeron [id number] Elayne Salmeron 01/31/2023 2 [employer] (MEDICARE SUPPLEMENT) Elayne Salmeron [id number] Elayne Salmeron 03/07/2023 1 [place] Elayne Salmeron [id number] Elayne Salmeron 03/07/2023 2 [employer] (MEDICARE SUPPLEMENT) Elayne Tamayoy [id number] Elayne Salmeron 03/28/2023 1 [place] Elayne Tamayoy [id number] Elayne Salmeron 03/28/2023 2 [employer] (MEDICARE SUPPLEMENT) Elayne Salmeron [id number] Elayne Salmeron Notes Date Note Type Note Provider Name and Address Organization Details Recorded Time 01/31/2023 text/html patient is a 77-year-old female referred by Dr. Santiago for evaluation of her right patellar fracture which she sustained with a fall 8 days ago. After the fall she had pain in the front of her knee but she was able stand up and walk but over the next several hours the pain became rather severe and she went to the emergency room on 01/24 and x-rays demonstrated a vertical fracture of the lateral margin of the patella. These were nonweightbearing x-ray views and showed significant chondrocalcinosis and mild medial joint space narrowing and prominent vascular calcifications diffusely in the superficial femoral popliteal and trifurcation arterial vessels consistent with longstanding diabetes. She lives by herself at home. She is here with her son. She has been getting along fairly well and getting around at home. She has a walker with front wheels and she is immobilized in a long knee immobilizer. She recently broke her pinky toe last month. Two years ago she had proximal humerus fracture in finger fracture at that time she had to go into a rehab facility Because she could not care for herself. She was scheduled actually to have a bone density test this week but had to be canceled. She had 1 4 years ago. Patient denies any history of DVT problems. She is here with her son today. Christian Olsen MD [address] [place] [address], [facility] [address], [place], [address], [place] [facility] 02/01/2023 14:32:04 OBGyn Episode No OBEpisode recorded.
--- OUTSIDE RECORDS SUMMARY | 2024-02-13 13:53 | XMS_ITS ---
Author Organization [facility] Address Unknown Allergies, Adverse Reactions, Alerts Substance Reaction Status Noted Date Resolved Date metFORMIN Nausea active 06/06/2021 Problems Problem Status Start Date End Date DISPLACED FRACTURE OF FIFTH METATARSAL BONE, LEFT FOOT, SUBSEQUENT ENCOUNTER FOR FRACTURE WITH ROUTINE HEALING (S92.352D - ICD-10-CM) ACTIVE 06/06/2021 DIFFICULTY IN WALKING, NOT E LSEWHERE CLASSIFIED (R26.2 - ICD-10-CM) ACTIVE 06/07/2021 TYPE 2 DIABETES MELLITUS WIT H DIABETIC NEPHROPATHY (E11.21 - ICD-10-CM) ACTIVE 06/05/2021 TYPE 2 DIABETES MELLITUS WIT H UNSPECIFIED DIABETIC RETINOPATHY WITHOUT MACULAR EDEMA (E11.319 - ICD-10-CM) ACTIVE 07/2021 PRIMARY OSTEOARTHRITIS, OTHE R SPECIFIED SITE (M19.09 - ICD-10-CM) ACTIVE 06/05/2021 IRON DEFICIENCY ANEMIA, UNSPECIFIED (D50.9 - ICD-10-CM ) ACTIVE 06/05/2021 CHRONIC OBSTRUCTIVE PULMONAR Y DISEASE, UNSPECIFIED (J44.9 - ICD-10-CM) ACTIVE 06/05/2021 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) ACTIVE 06/06/2021 CHRONIC KIDNEY DISEASE, STAG E 3 UNSPECIFIED (N18.30 - ICD-10-CM) ACTIVE 06/05/2021 UNSPECIFIED FRACTURE OF UPPE R END OF RIGHT HUMERUS, SUBSEQUENT ENCOUNTER FOR FRACTURE WITH ROUTINE HEALING (S42.201D - ICD-10-CM) ACTIVE 06/06/2021 GOUT, UNSPECIFIED (M10.9 - ICD-10-CM) ACTIVE 07/2021 BODY MASS INDEX [BMI] 33.0-3 3.9, ADULT (Z68.33 - ICD-10-CM) ACTIVE 06/06/2021 PURE HYPERCHOLESTEROLEMIA, U NSPECIFIED (E78.00 - ICD-10-CM) ACTIVE 06/05/2021 ABNORMAL POSTURE (R29.3 - ICD-10-CM) ACTIVE 08/2021 ESSENTIAL (PRIMARY) HYPERTENSION (I10 - ICD-10-CM) ACT ARUN 06/05/2021 Encounters Encounter Performer Performer Role Encounter Diagnoses Location Date Discharge - Discharged to home or self care - Home - Private home/apt. with home health services [facility] 06/06/2021 09:45 am EDT - 07/14/2021 10:30 am EDT Immunizations Vaccine Date Influenza 11/21/2020 01:00 am EDT TB 2 Step Mantoux Skin Test 06/21/2021 1 0:00 pm EDT TB 2 Step Mantoux Skin Test 06/07/2021 0 5:00 am EDT Prevnar 13 01/01/2016 01:00 am EDT Pneumococcal polysaccharide vaccine (PPS V23) 10/05/2013 01:00 am EDT Social History
--- OUTSIDE RECORDS SUMMARY | 2024-02-13 13:54 | XMS_ITS | Clinical Summary ---
Author Organization Unknown Care Team Providers Care Sales Operations Associate Name Role Phone KEANU SANTIAGO Unavailable Unavailable JOHN PHYSICAL THERAPIST, LIS Unavailable Unavailable [employer] LIFE CONSULTANT, LANE troncoso Unavailable SANTO HOYTCOAL EQUIPMENT OPERATOR, ALIYAH Unavailable Unavailable Payers Payer Name Policy Type Policy Number Effective Date Expira tion Date MEDICARE [place] - EPISODIC [id number] Problems Condition Name Condition Details Condition Category Status Onset Date Resolution Date Last Treatment Date Treating Clinician Comments DISP FX OF GREATER TUBEROSITY OF R HUMER, 7THD Active 07-13 00:00: 00 DISP FX OF 5TH METATARSAL BONE, L FT, 7THD Active 07-13 00:00: 00 TYPE 2 DIABETES MELLITUS WITH HYPERGLYCEMI A Active 07-13 00:00: 00 TYPE 2 DIABETES MELLITUS W DIABETIC CHRONIC KIDNEY DISEASE Active 07-13 00:00: 00 HYPERTENSIVE CHRONIC KIDNEY DISEASE W STG 1-4/UNSP CHR KDNY Active 07-13 00:00: 00 CHRONIC KIDNEY DISEASE, STAGE 3 UNSPECIFIED Active 07-13 00:00: 00 TYPE 2 DIABETES MELLITUS WITH DIABETIC NEPHROPATHY Active 07-13 00:00: 00 TYPE 2 DIABETES W UNSP DIABETIC RTNOP W/O MACULAR EDEMA Active 07-13 00:00: 00 UNSPECIFIED OSTEOARTHRIT IS, UNSPECIFIED SITE Active 07-13 00:00: 00 CHRONIC OBSTRUCTIVE PULMONARY DISEASE, UNSPECIFIED Active 07-13 00:00: 00 TYPE 2 DIABETES MELLITUS WITH DIABETIC NEUROPATHY, UNSP Active 07-13 00:00: 00 IRON DEFICIENCY ANEMIA, UNSPECIFIED Active 07-13 00:00: 00 PURE HYPERCHOLEST EROLEMIA, UNSPECIFIED Active 07-13 00:00: 00 GOUT, UNSPECIFIED Active 07-13 00:00: 00 BODY MASS INDEX [BMI] 32.0-32.9, ADULT Active 07-17 00:00: 00 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 Ordering Clinician Indication Dosage Frequency Signature (SIG) Comments Components allopurinol 100 mg tablet 07-18 00:00: 00 Yes [id number] GOUT 1 tablet TWICE DAILY 1 tablet TWICE DAILY (route: oral) Med Classific ation: Gout and Hyperuric emia Therapy Breztri Aerosphere 160 mcg-9mcg-4. 8mcg/actuat ion HFA aerosol inhaler 07-18 00:00: 00 Yes [id number] COPD 2 puff TWICE DAILY 2 puff TWICE DAILY (route: inhalation ) Med Classific ation: Respirato ry Therapy Agents carvedilol 25 mg tablet 07-18 00:00: 00 Yes [id number] HYPERTENSIO N 1 tablet TWICE DAILY 1 tablet TWICE DAILY (route: oral) Med Classific ation: Cardiovas cular Therapy Agents hydrochloro thiazide 25 mg tablet 07-18 00:00: 00 Yes [id number] HYPERTENSIO N 1 tablet ONCE DAILY 1 tablet ONCE DAILY (route: oral) Med Classific ation: Cardiovas cular Therapy Agents magnesium oxide 400 mg (241.3 mg magnesium) tablet 07-18 00:00: 00 Yes [id number] MAGNESIUM DEFICIENCY 1 tablet AT BEDTIME 1 tablet AT BEDTIME (route: oral) Med Classific ation: Electroly te Balance-N utritiona l Products melatonin 10 mg tablet 07-18 00:00: 00 Yes [id number] INSOMNIA 1 tablet AT BEDTIME 1 tablet AT BEDTIME (route: oral) Med Classific ation: Central Nervous System Agents memantine 10 mg tablet 07-18 00:00: 00 Yes [id number] MEMORY LOSS 1 tablet TWICE DAILY 1 tablet TWICE DAILY (route: oral) Med Classific ation: Cognitive Disorder Therapy montelukast 10 mg tablet 07-18 00:00: 00 Yes [id number] COPD 1 tablet AT BEDTIME 1 tablet AT BEDTIME (route: oral) Med Classific ation: Respirato ry Therapy Agents Novolin N NPH U-100 Insulin isophane 100 unit/mL subcutaneou s susp 07-18 00:00: 00 08-06 23:59 :00 No [id number] DIABETES Per instruc tions DIRECTED Per instructio ns DIRECTED (route: subcutaneo us) Med Classific ation: Endocrine omeprazole 40 mg capsule,del ayed release 07-18 00:00: 00 Yes [id number] GERD 1 capsule ONCE DAILY 1 capsule ONCE DAILY (route: oral) Med Classific ation: Gastroint estinal Therapy Agents simvastatin 20 mg tablet 07-18 00:00: 00 Yes [id number] HYPERCHOLES TEROLEMIA 1 tablet AT BEDTIME 1 tablet AT BEDTIME (route: oral) Med Classific ation: Cardiovas cular Therapy Agents Novolin N NPH U-100 Insulin isophane 100 unit/mL subcutaneou s susp 08-06 00:00: 00 Yes [id number] SM Per instruc tions TWICE DAILY Per instructio ns TWICE DAILY (route: subcutaneo us) Med Classific ation: Endocrine Immunizations Ordered Immunization Name Filled Immunization Name Date Status Comments Refusal Reason PNEUMOCOCCAL (PPV), PPV 2018-12-03 00:00:00 Vital Signs Vital Name Observation Time Observation Value Commen ts Temperature 2021-09-11 09:55:43.000 97.8 [degF] Temperature 2021-09-07 12:27:45.000 98 [degF] Temperature 2021-08-28 10:36:23.000 97.8 [degF] Temperature 2021-08-22 11:43:03.000 98.2 [degF] Temperature 2021-08-14 12:26:24.000 98.2 [degF] Temperature 2021-08-09 12:25:07.000 98 [degF] Temperature 2021-08-07 16:23:51.000 97 [degF] Temperature 2021-08-07 09:24:30.000 97 [degF] Temperature 2021-08-03 16:53:04.000 98 [degF] Temperature 2021-08-02 08:52:10.000 98 [degF] Temperature 2021-07-31 10:28:23.000 97.7 [degF] Temperature 2021-07-26 09:39:01.000 97.8 [degF] Temperature 2021-07-25 12:30:52.000 97.4 [degF] Temperature 2021-07-25 09:51:30.000 97.8 [degF] Temperature 2021-07-19 14:46:08.000 98.9 [degF] Temperature 2021-07-18 14:49:50.000 98 [degF] Height 2021-07-18 14:47:12.000 59 [in_us] Pulse 2021-09-11 09:55:51.000 80 /min Pulse 2021-09-07 12:27:56.000 86 /min Pulse 2021-08-28 10:36:30.000 76 /min Pulse 2021-08-22 11:43:10.000 70 /min Pulse 2021-08-14 12:26:31.000 68 /min Pulse 2021-08-09 12:25:13.000 60 /min Pulse 2021-08-07 16:23:58.000 68 /min Pulse 2021-08-07 09:24:35.000 68 /min Pulse 2021-08-03 16:53:12.000 65 /min Pulse 2021-08-02 08:52:46.000 68 /min Pulse 2021-07-31 10:28:31.000 68 /min Pulse 2021-07-26 09:39:07.000 67 /min Pulse 2021-07-25 12:31:00.000 74 /min Pulse 2021-07-25 09:51:36.000 60 /min Pulse 2021-07-19 14:46:15.000 62 /min Pulse 2021-07-18 14:49:57.000 70 /min O2 Saturation (%) 2021-09-11 09:56:03.000 98 % O2 Saturation (%) 2021-09-07 12:28:07.000 98 % O2 Saturation (%) 2021-08-28 10:36:40.000 98 % O2 Saturation (%) 2021-08-22 11:43:23.000 96 % O2 Saturation (%) 2021-08-14 12:28:19.000 97 % O2 Saturation (%) 2021-08-09 12:25:26.000 97 % O2 Saturation (%) 2021-08-07 16:24:33.000 98 % O2 Saturation (%) 2021-08-07 09:25:51.000 97 % O2 Saturation (%) 2021-08-03 16:54:41.000 98 % O2 Saturation (%) 2021-08-02 08:53:11.000 98 % O2 Saturation (%) 2021-07-31 10:28:50.000 97 % O2 Saturation (%) 2021-07-26 09:39:34.000 98 % O2 Saturation (%) 2021-07-25 12:34:54.000 97 % O2 Saturation (%) 2021-07-25 09:52:00.000 99 % O2 Saturation (%) 2021-07-19 14:46:43.000 97 % O2 Saturation (%) 2021-07-18 14:50:07.000 98 % Respirations 2021-09-11 09:55:56.000 18 /min Respirations 2021-09-07 12:28:00.000 18 /min Respirations 2021-08-28 10:36:34.000 18 /min Respirations 2021-08-22 11:43:15.000 18 /min Respirations 2021-08-14 12:26:50.000 18 /min Respirations 2021-08-09 12:25:19.000 18 /min Respirations 2021-08-07 16:24:04.000 18 /min Respirations 2021-08-07 09:24:48.000 18 /min Respirations 2021-08-03 16:53:21.000 20 /min Respirations 2021-08-02 08:53:05.000 18 /min Respirations 2021-07-31 10:24:23.000 18 /min Respirations 2021-07-26 09:39:12.000 18 /min Respirations 2021-07-25 12:31:05.000 18 /min Respirations 2021-07-25 09:51:40.000 18 /min Respirations 2021-07-19 14:46:20.000 18 /min Respirations 2021-07-18 14:47:42.000 18 /min Weight (lbs) 2021-07-18 14:46:41.000 155 [lb_av] Systolic Blood Pressure 2021-09-11 09:57:31.000 120 mm [Hg] Systolic Blood Pressure 2021-09-07 12:28:18.000 122 mm [Hg] Systolic Blood Pressure 2021-08-28 10:38:17.000 130 mm [Hg] Systolic Blood Pressure 2021-08-22 11:44:42.000 120 mm [Hg] Systolic Blood Pressure 2021-08-14 12:28:12.000 120 mm [Hg] Systolic Blood Pressure 2021-08-09 12:25:01.000 104 mm [Hg] Systolic Blood Pressure 2021-08-07 16:24:12.000 110 mm [Hg] Systolic Blood Pressure 2021-08-07 09:24:59.000 110 mm [Hg] Systolic Blood Pressure 2021-08-03 16:54:27.000 117 mm [Hg] Systolic Blood Pressure 2021-08-02 08:53:00.000 130 mm [Hg] Systolic Blood Pressure 2021-07-31 10:28:43.000 111 mm [Hg] Systolic Blood Pressure 2021-07-26 09:39:27.000 130 mm [Hg] Systolic Blood Pressure 2021-07-25 12:34:01.000 112 mm [Hg] Systolic Blood Pressure 2021-07-25 09:51:49.000 124 mm [Hg] Systolic Blood Pressure 2021-07-19 14:46:29.000 116 mm [Hg] Systolic Blood Pressure 2021-07-18 14:52:41.000 126 mm [Hg] Diastolic Blood Pressure 2021-09-11 09:57:31.000 70 mm [Hg] Diastolic Blood Pressure 2021-09-07 12:28:18.000 64 mm [Hg] Diastolic Blood Pressure 2021-08-28 10:38:17.000 74 mm [Hg] Diastolic Blood Pressure 2021-08-22 11:44:42.000 64 mm [Hg] Diastolic Blood Pressure 2021-08-14 12:28:12.000 64 mm [Hg] Diastolic Blood Pressure 2021-08-09 12:25:01.000 52 mm [Hg] Diastolic Blood Pressure 2021-08-07 16:24:12.000 65 mm [Hg] Diastolic Blood Pressure 2021-08-07 09:24:59.000 65 mm [Hg] Diastolic Blood Pressure 2021-08-03 16:54:27.000 68 mm [Hg] Diastolic Blood Pressure 2021-08-02 08:53:00.000 61 mm [Hg] Diastolic Blood Pressure 2021-07-31 10:28:43.000 60 mm [Hg] Diastolic Blood Pressure 2021-07-26 09:39:27.000 60 mm [Hg] Diastolic Blood Pressure 2021-07-25 12:34:01.000 64 mm [Hg] Diastolic Blood Pressure 2021-07-25 09:51:49.000 68 mm [Hg] Diastolic Blood Pressure 2021-07-19 14:46:29.000 58 mm [Hg] Diastolic Blood Pressure 2021-07-18 14:52:41.000 60 mm [Hg] Plan of Treatment Planned Activity Planned Date Details Comments Future Scheduled Test IN RESPONS E TO STAY AT HOME EMERGENCY DECLARATION, THE PATIENT IS HOMEBOUND BECAUSE LEAVING THE HOUSE WOULD PUT THE PATIENT AT UNACCEPTABLY HIGH RISK OF ACQUIRING AN INFECTIOUS DISEASE SUCH COVID-19, OR THE PATIENTS MEDICAL CONDITION WOULD FURTHER EXACERBATE LEADING TO COMPLICATIONS. THE CERTIFYING PHYSICIAN, ASSOCIATED PHYSICIAN, NPP OR PA WITHIN THE SAME GROUP MAY APPROVE AND SIGN THE ORDER (ON ANY PAGE) ATTESTING THAT THE COMPREHENSIVE OUTCOME ASSESSMENTS, EVALUATIONS, AND HOME HEALTH CERTIFICATION PLANS SUPPORT HOMEBOUND STATUS. HOME HEALTH WEB-PORTAL DOCUMENTATION ACCESSED BY THE PHYSICIAN MUST BE INCORPORATED INTO THE MEDICAL RECORD TO CORROBORATE THE PHYSICIAN, NPP, OR PAS F2F ENCOUNTER TO SUPPORT ELIGIBILITY FOR HOME HEALTH SERVICES. [code = IN RESPONSE TO STAY AT HOME EMERGENCY DECLARATION, THE PATIENT IS HOMEBOUND BECAUSE LEAVING THE HOUSE WOULD PUT THE PATIENT AT UNACCEPTABLY HIGH RISK OF ACQUIRING AN INFECTIOUS DISEASE SUCH COVID-19, OR THE PATIENTS MEDICAL CONDITION WOULD FURTHER EXACERBATE LEADING TO COMPLICATIONS. THE CERTIFYING PHYSICIAN, ASSOCIATED PHYSICIAN, NPP OR PA WITHIN THE SAME GROUP MAY APPROVE AND SIGN THE ORDER (ON ANY PAGE) ATTESTING THAT THE COMPREHENSIVE OUTCOME ASSESSMENTS, EVALUATIONS, AND HOME HEALTH CERTIFICATION PLANS SUPPORT HOMEBOUND STATUS. HOME HEALTH WEB-PORTAL DOCUMENTATION ACCESSED BY THE PHYSICIAN MUST BE INCORPORATED INTO THE MEDICAL RECORD TO CORROBORATE THE PHYSICIAN, NPP, OR PAS F2F ENCOUNTER TO SUPPORT ELIGIBILITY FOR HOME HEALTH SERVICES.] Future Scheduled Test EACH ORDER ED IN-HOME OR TELEHEALTH VISIT, THE SKILLED NURSE WILL CONDUCT A COMPREHENSIVE ASSESSMENT INCLUDING VITAL SIGNS, PAIN, SAFETY, MENTAL/COGNITIVE/PSYCHOSOCIAL STATUS, MED MANAGEMENT, NUTRITION, SKIN INTEGRITY, PRESSURE ULCER PREVENTION, AND PATIENT/CAREGIVER ABILITY TO SUPPORT ORDERED CARE. SKILLED NURSE WILL INSTRUCT ON DISEASE PROCESS, MED MGMT., FALL PREVENTION AND SAFETY, INFECTION CONTROL AND PREVENTION, WARNING SIGNS, ADDRESS RESULTS OUTSIDE OF ORDERED PARAMETERS LISTED ON CARE PLAN, AND COORDINATE DISCHARGE WITH THE TREATING PROVIDER. MAY ACCEPT ORDERS FROM THE FOLLOWING PROVIDER(S) WHO WILL BE CONSULTING ON THE CERTIFIED CARE PLAN: DR KEANU SANTIAGO [code = EACH ORDERED IN-HOME OR TELEHEALTH VISIT, THE SKILLED NURSE WILL CONDUCT A COMPREHENSIVE ASSESSMENT INCLUDING VITAL SIGNS, PAIN, SAFETY, MENTAL/COGNITIVE/PSYCHOSOCIAL STATUS, MED MANAGEMENT, NUTRITION, SKIN INTEGRITY, PRESSURE ULCER PREVENTION, AND PATIENT/CAREGIVER ABILITY TO SUPPORT ORDERED CARE. SKILLED NURSE WILL INSTRUCT ON DISEASE PROCESS, MED MGMT., FALL PREVENTION AND SAFETY, INFECTION CONTROL AND PREVENTION, WARNING SIGNS, ADDRESS RESULTS OUTSIDE OF ORDERED PARAMETERS LISTED ON CARE PLAN, AND COORDINATE DISCHARGE WITH THE TREATING PROVIDER. MAY ACCEPT ORDERS FROM THE FOLLOWING PROVIDER(S) WHO WILL BE CONSULTING ON THE CERTIFIED CARE PLAN: DR KEANU SANTIAGO ] Future Scheduled Test SKILLED NU RSE TO INSTRUCT PATIENT/CAREGIVER ON WHAT IS HYPERTENSION, HOW TO CHECK HIS/HER BLOOD PRESSURE, AND STRATEGIES TO USE TO CONTROL BLOOD PRESSURE SUCH MONITORING BP, SMOKING CESSATION, MANAGING BLOOD GLUCOSE RESULTS TO AN ACCEPTABLE RANGE, MONITORING WEIGHTS, ENGAGING IN PHYSICAL ACTIVITY AIMING FOR 150 MINUTES SPREAD THROUGHOUT THE WEEK. [code = SKILLED NURSE TO INSTRUCT PATIENT/CAREGIVER ON WHAT IS HYPERTENSION, HOW TO CHECK HIS/HER BLOOD PRESSURE, AND STRATEGIES TO USE TO CONTROL BLOOD PRESSURE SUCH MONITORING BP, SMOKING CESSATION, MANAGING BLOOD GLUCOSE RESULTS TO AN ACCEPTABLE RANGE, MONITORING WEIGHTS, ENGAGING IN PHYSICAL ACTIVITY AIMING FOR 150 MINUTES SPREAD THROUGHOUT THE WEEK.] Future Scheduled Test HOME HEALT H NURSE WILL INSTRUCT PATIENT/CAREGIVER ON IDDM DISEASE PROCESS, HOW TO CREATE A DIABETIC TOOLKIT TO MANAGE INVENTORY OF SUPPLIES, HOW TO PLAN FOR A SICK-DAY, AND WARNING SIGNS WHEN THE PATIENT EXPERIENCES LOW BLOOD SUGAR. [code = HOME HEALTH NURSE WILL INSTRUCT PATIENT/CAREGIVER ON IDDM DISEASE PROCESS, HOW TO CREATE A DIABETIC TOOLKIT TO MANAGE INVENTORY OF SUPPLIES, HOW TO PLAN FOR A SICK-DAY, AND WARNING SIGNS WHEN THE PATIENT EXPERIENCES LOW BLOOD SUGAR.] Future Scheduled Test HOME HEALT NURSE WILL INSTRUCT AND VERIFY APPROPRIATE STEPS ON HOW THE PATIENT CHECKS OWN BLOOD GLUCOSE AND IMPORTANCE TO TRACK BLOOD RESULTS ON A DAILY LOG OR NOTEBOOK TO MONITOR TRENDS. PATIENT/CAREGIVER OR HOME HEALTH RN WILL PERFORM BLOOD GLUCOSE CHECKS. BLOOD GLUCOSE MONITORING WILL OCCUR TWICE DAILY [code = HOME HEALTH NURSE WILL INSTRUCT AND VERIFY APPROPRIATE STEPS ON HOW THE PATIENT CHECKS OWN BLOOD GLUCOSE AND IMPORTANCE TO TRACK BLOOD RESULTS ON A DAILY LOG OR NOTEBOOK TO MONITOR TRENDS. PATIENT/CAREGIVER OR HOME HEALTH RN WILL PERFORM BLOOD GLUCOSE CHECKS. BLOOD GLUCOSE MONITORING WILL OCCUR TWICE DAILY] Future Scheduled Test HOME HEALT NURSE WILL INSTRUCT PATIENT/CAREGIVER ABOUT STRATEGIES TO KEEP FEET HEALTHY AND HOW TO CATCH PROBLEMS EARLY TO REDUCE RISK OF INJURY OR AMPUTATION. [code = HOME HEALTH NURSE WILL INSTRUCT PATIENT/CAREGIVER ABOUT STRATEGIES TO KEEP FEET HEALTHY AND HOW TO CATCH PROBLEMS EARLY TO REDUCE RISK OF INJURY OR AMPUTATION.] Future Scheduled Test HOME HEALT NURSE WILL INSTRUCT ABOUT COPD, APPROPRIATE BREATHING TECHNIQUES, STRATEGIES TO MANAGE COPD TO PREVENT EXACERBATIONS, STRATEGIES TO PROMOTE SLEEP, USE OF A COPD ACTION PLAN, AND WARNING SIGNS TO CALL THE AGENCY, TREATING PROVIDER, OR 911. [code = HOME HEALTH NURSE WILL INSTRUCT ABOUT COPD, APPROPRIATE BREATHING TECHNIQUES, STRATEGIES TO MANAGE COPD TO PREVENT EXACERBATIONS, STRATEGIES TO PROMOTE SLEEP, USE OF A COPD ACTION PLAN, AND WARNING SIGNS TO CALL THE AGENCY, TREATING PROVIDER, OR 911.] Future Scheduled Test HOME [facility] NURSE WILL ASSESS FOR COMPLICATIONS RELATED TO FRACTURE OF RIGHT HUMERUS AND LEFT METATARSAL AND INSTRUCT PATIENT/CAREGIVER ABOUT ACTIVITY RESTRICTIONS, TREATMENT STRATEGIES, PRECAUTIONS, AND SIGNS/SYMPTOMS TO REPORT. [code = HOME HEALTH NURSE WILL ASSESS FOR COMPLICATIONS RELATED TO FRACTURE OF RIGHT HUMERUS AND LEFT METATARSAL AND INSTRUCT PATIENT/CAREGIVER ABOUT ACTIVITY RESTRICTIONS, TREATMENT STRATEGIES, PRECAUTIONS, AND SIGNS/SYMPTOMS TO REPORT.] Future Scheduled Test FOR EACH O RDERED, IN-HOME OR TELEHEALTH VISIT, THE PHYSICAL THERAPIST WILL EVALUATE PATIENT AND TREAT PATIENTS FUNCTIONAL DEFICITS, ASSESS SKIN INTEGRITY, MED MANAGEMENT, AND PAIN MANAGEMENT RELATED TO THE PRIMARY MEDICAL DIAGNOSIS AND ACTIVE CO-MORBIDITIES THAT MAY IMPACT THE PATIENTS OUTCOME. IN RESPONSE TO STAY AT HOME EMERGENCY DECLARATION, THE PATIENT IS HOMEBOUND BECAUSE LEAVING THE HOUSE WOULD PUT THE PATIENT AT UNACCEPTABLY HIGH RISK OF ACQUIRING AN INFECTIOUS DISEASE SUCH COVID-19, OR THE PATIENTS MEDICAL CONDITION WOULD FURTHER EXACERBATE LEADING TO COMPLICATIONS. INSTRUCT ON FUNCTIONAL TRANSFERS, BED MOBILITY, AND FALL RISK REDUCTION STRATEGIES INCLUDING USE OF ADAPTIVE EQUIPMENT AND EDUCATION FOR HOME MODIFICATIONS TO MAXIMIZE SAFETY, IMPROVE FUNCTION, AND DECREASED FALL RISK. INSTRUCT ON GAIT TRAINING, BALANCE TRAINING, AND FALL RISK REDUCTION STRATEGIES INCLUDING USE OF ADAPTIVE EQUIPMENT AND EDUCATION FOR HOME MODIFICATIONS TO MAXIMIZE SAFETY, IMPROVE FUNCTION, AND DECREASED FALL RISK. PROVIDE EXERCISES DESIGNED TO RESTORE FUNCTIONAL RANGE OF MOTION, STRENGTH, NEUROMUSCULAR AND SENSORIMOTOR FUNCTION, AND TO INSTRUCT/UPGRADE IN THERAPEUTIC HOME EXERCISE/ACTIVITY PROGRAM. IN RESPONSE TO STAY AT HOME EMERGENCY DECLARATION, THE PATIENT IS HOMEBOUND BECAUSE LEAVING THE HOUSE WOULD PUT THE PATIENT AT UNACCEPTABLY HIGH RISK OF ACQUIRING AN INFECTIOUS DISEASE SUCH COVID-19, OR THE PATIENTS MEDICAL CONDITION WOULD FURTHER EXACERBATE LEADING TO COMPLICATIONS. SKILLED THERAPIST TO INSTRUCT/REINFORCE BLOOD GLUCOSE TESTING AND MONITORING ESTABLISHED BY PHYSICIAN. INSTRUCT ON PROPER DIABETIC FOOT CARE MANAGEMENT. SKILLED THERAPIST TO REPORT RANDOM BLOOD GLUCOSE LEVELS 70 OR >180 MG/DL. [code = FOR EACH ORDERED, IN-HOME OR TELEHEALTH VISIT, THE PHYSICAL THERAPIST WILL EVALUATE PATIENT AND TREAT PATIENTS FUNCTIONAL DEFICITS, ASSESS SKIN INTEGRITY, MED MANAGEMENT, AND PAIN MANAGEMENT RELATED TO THE PRIMARY MEDICAL DIAGNOSIS AND ACTIVE CO-MORBIDITIES THAT MAY IMPACT THE PATIENTS OUTCOME. IN RESPONSE TO STAY AT HOME EMERGENCY DECLARATION, THE PATIENT IS HOMEBOUND BECAUSE LEAVING THE HOUSE WOULD PUT THE PATIENT AT UNACCEPTABLY HIGH RISK OF ACQUIRING AN INFECTIOUS DISEASE SUCH COVID-19, OR THE PATIENTS MEDICAL CONDITION WOULD FURTHER EXACERBATE LEADING TO COMPLICATIONS. INSTRUCT ON FUNCTIONAL TRANSFERS, BED MOBILITY, AND FALL RISK REDUCTION STRATEGIES INCLUDING USE OF ADAPTIVE EQUIPMENT AND EDUCATION FOR HOME MODIFICATIONS TO MAXIMIZE SAFETY, IMPROVE FUNCTION, AND DECREASED FALL RISK. INSTRUCT ON GAIT TRAINING, BALANCE TRAINING, AND FALL RISK REDUCTION STRATEGIES INCLUDING USE OF ADAPTIVE EQUIPMENT AND EDUCATION FOR HOME MODIFICATIONS TO MAXIMIZE SAFETY, IMPROVE FUNCTION, AND DECREASED FALL RISK. PROVIDE EXERCISES DESIGNED TO RESTORE FUNCTIONAL RANGE OF MOTION, STRENGTH, NEUROMUSCULAR AND SENSORIMOTOR FUNCTION, AND TO INSTRUCT/UPGRADE IN THERAPEUTIC HOME EXERCISE/ACTIVITY PROGRAM. IN RESPONSE TO STAY AT HOME EMERGENCY DECLARATION, THE PATIENT IS HOMEBOUND BECAUSE LEAVING THE HOUSE WOULD PUT THE PATIENT AT UNACCEPTABLY HIGH RISK OF ACQUIRING AN INFECTIOUS DISEASE SUCH COVID-19, OR THE PATIENTS MEDICAL CONDITION WOULD FURTHER EXACERBATE LEADING TO COMPLICATIONS. SKILLED THERAPIST TO INSTRUCT/REINFORCE BLOOD GLUCOSE TESTING AND MONITORING ESTABLISHED BY PHYSICIAN. INSTRUCT ON PROPER DIABETIC FOOT CARE MANAGEMENT. SKILLED THERAPIST TO REPORT RANDOM BLOOD GLUCOSE LEVELS 70 OR >180 MG/DL.] Goal 2021-09-11 Patient Goal - TO REMAIN MAR[place] E OF [place]ALL[place] Goal Provider Goal - A PLAN OF CARE WILL BE ESTABLISHED THAT MEETS ALL PATIENT'S CORRECTION NEEDS AND COUNTER SIGNED BY PHYSICIAN. Goal Provider Goal - PATIENT WILL BE FREE OF FALLS AND HOSPITALIZATIONS THROUGHOUT EPISODE OF CARE. PATIENT/CAREGIVER WILL UNDERSTAND AND ADHERE TO ORDERED DIET. PATIENT/CAREGIVER WILL INDEPENDENTLY MANAGE MEDICATIONS, UNDERSTAND ANY CHANGES, SIDE EFFECTS TO REPORT BY 09/15/21. PATIENT WILL BE FREE OF INFECTION AND UNDERSTAND MEASURES OF PREVENTION. PATIENT/CAREGIVER WILL COLLABORATE WITH SKILLED NURSE TO DEVELOP POC AT SOC AND ON AN ONGOING BASIS UPDATES ARE NEEDED. UNDERSTAND PROGRESS MADE/DISCHARGE PLANNING. ADDITIONAL ORDERS WILL BE RECEIVED FROM ALTERNATE PHYSICIANS IN A TIMELY MANNER. Goal Provider Goal - PATIENT/CAREGIVER WILL INDEPENDENTLY DEMONSTRATE HOW TO CHECK HIS/HER OWN BP AND VERBALIZE WHAT STRATEGIES CAN ASSIST TO CONTROL BLOOD PRESSURE. Goal Provider Goal - PATIENT/CAREGIVER WILL VERBALIZE UNDERSTANDING OF IDDM AND THE IMPORTANCE OF MANAGING THE BLOOD SUGAR WITHIN THE EXPECTED RANGE. PATIENT/CAREGIVER WILL ESTABLISH A DIABETIC TOOLKIT AND A SICK-DAY PLAN TO PREPARE FOR POTENTIAL CHANGES WITH BLOOD SUGARS RANGES. PATIENT/CAREGIVER WILL VERBALIZE WARNING SIGNS OF LOW BLOOD SUGAR AND WHAT ACTIONS TO TAKE. Goal Provider Goal - PATIENT/CAREGIVER WILL DEMONSTRATE PROPER TECHNIQUE WHEN CHECKING OWN BLOOD GLUCOSE, DEMONSTRATES ADHERES TO WRITING DOWN RESULTS USING A LOGBOOK, FOLLOWS THE PRESCRIBED FREQUENCY OF BLOOD SUGAR CHECKS PRIOR TO DISCHARGING FROM HOME HEALTH SERVICES. Goal Provider Goal - PATIENT/CAREGIVER WILL VERBALIZE UNDERSTANDING OF PROPER FOOT CARE AND ADHERE TO INSTRUCTIONS TO KEEP FEET FROM INJURY OR INFECTION BY THE END OF HOME HEALTH SERVICES. Goal Provider Goal - PATIENT/CAREGIVER WILL DEMONSTRATE WILLINGNESS TO COLLABORATE AND CREATE A COPD ACTION PLAN, VERBALIZE UNDERSTANDING OF STRATEGIES TO PREVENT EXACERBATIONS, AND VERBALIZE WARNING SIGNS AND WHEN TO CONTACT THE TREATING PROVIDER OR 911 UPON THE END OF HOME HEALTH SERVICES. Goal Provider Goal - PATIENT/CAREGIVER WILL DEMONSTRATE ABILITY TO SELF-MANAGE CARE OF FRACTURE EVIDENCED BY ABSENCE OF COMPLICATIONS, ADHERENCE TO ACTIVITY RESTRICTIONS, TREATMENT STRATEGIES, AND PRECAUTIONS, AND VERBALIZATION OF SIGNS/SYMPTOMS TO REPORT BY END OF HOME HEALTH SERVICES. Goal Provider Goal - PHYSICAL THERAPY EVALUATION WILL BE COMPLETED, AND A PLAN OF CARE WILL BE DEVELOPED FOR THE TREATMENT OF PATIENT DEFICITS RELATED TO PRIMARY DIAGNOSIS FOR HOME CARE EPISODE. PATIENT/CAREGIVER TO VERBALIZE AND DEMONSTRATE UNDERSTANDING OF ASSOCIATED DISEASE PROCESSES AND THEIR INFLUENCE ON FUNCTION IN THE HOME ENVIRONMENT AND MINIMIZE RISK OF HOSPITALIZATION. PATIENT WILL DEMONSTRATE IMPROVED UNDERSTANDING OF MEASURES THAT WILL RESULT IN DECREASED FALL RISK AND A SAFE HOME ENVIRONMENT DURING FUNCTIONAL TRANSFERS AND BED MOBILITY TO ACHIEVE THERAPY SHORT TERM/DISTRIBUTOR OPERATOR GOALS BELOW. PATIENT WILL DEMONSTRATE IMPROVED SAFETY AND ABILITY WITH GAIT, BALANCE, AND FUNCTIONAL ACTIVITIES TO ACHIEVE THERAPY SHORT TERM/DISTRIBUTOR OPERATOR GOALS BELOW. PATIENT WILL RETURN DEMONSTRATE ACCURATE EXECUTION OF ESTABLISHED HOME EXERCISE PROGRAM. PATIENT WILL REMAIN SAFE AND RECEIVE CARE AT HOME. PATIENT AND/OR CAREGIVER VERBALIZES / DEMONSTRATES ABILITY TO COMPLY WITH BLOOD GLUCOSE MONITORING AND MAINTAIN A BLOOD GLUCOSE LOG. PATIENT AND/OR CAREGIVER VERBALIZES / DEMONSTRATES ABILITY TO MANAGE PROPER DIABETIC FOOT CARE. Reason for Visit INDEPENDENT IN THE HOME Encounters Start Date/Time End Date/Time Encounter Type Admission Type Attending [facility] Department Encounter ID Discharge Date Discharge Status Discharge Condition Discharge Reason Percent Goals Met 2021-07-18 00:00:00 2021-09-11 00:00:00 Outpatient NEW ADMISSION ALIYAH BLANCHARD [facility] [id number] 00:00:00 DISCHARGE TO HOME OR SELF CARE INDEPENDEN T IN THE HOME GOALS MET 97.44
--- OUTSIDE RECORDS SUMMARY | 2024-02-13 13:54 | XMS_ITS | Patient Health Record ---
Author Organization [facility] Address [address] [place], [place] [id number] Care Team Providers Care Shearer Screen Measurer And Trimmer Name Role Phone ELYSE Red Unavailable [phone] Jonathon Nguyen Unavailable Unavailable BLUEBILL AGUILAR Unavailable [phone] Allergies No Known Allergies Reason For Referral No Information Medications Medication SIG (Take, Route, Frequency, Duration) Notes Start Date End Date Status chondroitin sulfates 250 MG Oral Capsule ORAL chondroitin sulfates 250 MG Oral CapsuleOriginal Medicationchondroitin sulfates 250 MG Oral Capsule *Reorder from [employer] for eRx and Interaction Alerts* 07/20/2012 Active aspirin 81 MG Delayed Release Oral Tablet [Book&Table Aspirin] ORAL aspirin 81 MG Delayed Release Oral Tablet [Book&Table Aspirin]Original Medicationaspirin 81 MG Delayed Release Oral Tablet [Book&Table Aspirin] *Reorder from [employer] for eRx and Interaction Alerts* 07/20/2012 Active Glucosamine Sulfate 500 MG Oral Tablet ORAL glucosamine sulfate 500 MG Oral TabletOriginal Medicationglucosamine sulfate 500 MG Oral Tablet *Reorder from [employer] for eRx and Interaction Alerts* 07/20/2012 Active Magnesium Gluconate 550 MG Oral Tablet ORAL magnesium gluconate 550 MG Oral TabletOriginal Medicationmagnesium gluconate 550 MG Oral Tablet *Reorder from [employer] for eRx and Interaction Alerts* 07/20/2012 Active Immunizations Vaccine Route Administration Date Status Comme nts Influenza, high dose seasonal Unknown 12/19/2022 Admini stered Vital Signs Height-cm 149.86 cm 07/10/2023 Weight-kg 69.85 kg 07/10/2023 Height 59.00 in 07/10/2023 Weight 154 lbs 07/10/2023 BMI 31.1 kg/m2 07/10/2023 Encounters Encounter Location Date Provider Diagnosis [address] [id number] 03/06/2023 BILL PEREZ Tinea unguium B35.1 ; Pain in right toe(s) M79.674 ; Pain in left toe(s) M79.675 ; Other hammer toe(s) (acquired), right foot M20.41 ; Other hammer toe(s) (acquired), left foot M20.42 ; 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, bilateral legs I70.203 and Type 2 diabetes mellitus with other circulatory complications E11.[address] [id number] 05/08/2023 BILL PEREZ Tinea unguium B35.1 ; Pain in right toe(s) M79.674 ; Pain in left toe(s) M79.675 ; Other hammer toe(s) (acquired), right foot M20.41 ; Other hammer toe(s) (acquired), left foot M20.42 ; 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, bilateral legs I70.203 and Type 2 diabetes mellitus with other circulatory complications E11.[address] [id number] 07/10/2023 BILL PEREZ Tinea unguium B35.1 ; Pain in right toe(s) M79.674 ; Pain in left toe(s) M79.675 ; Other hammer toe(s) (acquired), right foot M20.41 ; Other hammer toe(s) (acquired), left foot M20.42 ; 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, bilateral legs I70.203 and Type 2 diabetes mellitus with other circulatory complications E11.[address] [id number] 09/11/2023 BILL PEREZ Tinea unguium B35.1 ; Pain in right toe(s) M79.674 ; Pain in left toe(s) M79.675 ; Other hammer toe(s) (acquired), right foot M20.41 ; Other hammer toe(s) (acquired), left foot M20.42 ; 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, bilateral legs I70.203 and Type 2 diabetes mellitus with other circulatory complications E11.[address] [id number] 11/13/2023 BILL PEREZ Tinea unguium B35.1 ; Pain in right toe(s) M79.674 ; Pain in left toe(s) M79.675 ; Other hammer toe(s) (acquired), right foot M20.41 ; Other hammer toe(s) (acquired), left foot M20.42 ; 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, bilateral legs I70.203 and Type 2 diabetes mellitus with other circulatory complications E11.59 [facility] [address] [place], [place] [id number] 01/22/2024 BILL PEREZ Tinea unguium B35.1 ; Pain in right toe(s) M79.674 ; Pain in left toe(s) M79.675 ; Other hammer toe(s) (acquired), right foot M20.41 ; Other hammer toe(s) (acquired), left foot M20.42 ; 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 03/06/2023 Pain in right toe(s) (ICD-10 - M79.674) 05/08/2023 Tinea unguium (ICD-10 - B35.1) Aseptic debridement [...] educated regarding both OTC and prescription treatments. 05/08/2023 Pain in right toe(s) (ICD-10 - M79.674) 07/10/2023 Tinea unguium (ICD-10 - B35.1) Aseptic debridement [...] educated regarding both OTC and prescription treatments. 07/10/2023 Pain in right toe(s) (ICD-10 - M79.674) 09/11/2023 Tinea unguium (ICD-10 - B35.1) Aseptic [...] in right toe(s) (ICD-10 - M79.674) 11/13/2023 Tinea unguium (ICD-10 - B35.1) Aseptic [...] in right toe(s) (ICD-10 - M79.674) 01/22/2024 Tinea unguium (ICD-10 - B35.1) Aseptic [...] in left toe(s) (ICD-10 - M79.675) 11/13/2023 Pain in left toe(s) (ICD-10 - M79.675) 09/11/2023 Pain in left toe(s) (ICD-10 - M79.675) 07/10/2023 Pain in left toe(s) (ICD-10 - M79.675) 05/08/2023 Pain in left toe(s) (ICD-10 - M79.675) 03/06/2023 Pain in left toe(s) (ICD-10 - M79.675) 03/06/2023 Other hammer toe(s) (acquired), right foot (ICD-10 [...] were discussed, but conservative options were emphasized. 05/08/2023 Other hammer toe(s) (acquired), right foot (ICD-10 [...] were discussed, but conservative options were emphasized. 07/10/2023 Other hammer toe(s) (acquired), right foot (ICD-10 [...] were emphasized. 09/11/2023 Other hammer toe(s) (acquired), right foot [...] were emphasized. 11/13/2023 Other hammer toe(s) (acquired), right foot [...] were emphasized. 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, 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) Patient educated on risks and aggravating factors of PVD, including conservative treatment options such as a diet and exercise regimen to aid in slowing progression of vascular disease 05/08/2023 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, 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) Patient educated on risks and aggravating factors of PVD, including conservative treatment options such as a diet and exercise regimen to aid in slowing progression of vascular disease 07/10/2023 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, 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) Patient educated on risks and aggravating factors of PVD, including conservative treatment options such as a diet and exercise regimen to aid in slowing progression of vascular disease 09/11/2023 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, 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) Patient educated on risks and aggravating factors of PVD, including conservative treatment options such as a diet and exercise regimen to aid in slowing progression of vascular disease 11/13/2023 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 11/13/2023 Type 2 diabetes mellitus with other [...] but not limited to nausea, vomiting, fever. 09/11/2023 Type 2 diabetes mellitus with other [...] but not limited to nausea, vomiting, fever. 07/10/2023 Type 2 diabetes mellitus with other circulatory [...] but not limited to nausea, vomiting, fever. 05/08/2023 Type 2 diabetes mellitus with other circulatory [...] but not limited to nausea, vomiting, fever. 03/06/2023 Type 2 diabetes mellitus with other circulatory [...] to nausea, vomiting, fever. Plan Of Treatment Next Appt Details Provider Name:BILL PEREZ, 03/25/2024 10:40:00 AM, [address] [place] [address], [id number], Insurance Providers Payer Name Payer Address Payer Phone Subscriber Number Group Number Insured Name Patient Relationship to Insured Coverage Start Date Coverage End Date Medicare Part B [place] [address] [place] [phone] [id number] CICI HUTCHINSON Self - patient is the insured [facility] Life Paper Claim [address] [address] [place], [place] [phone] [phone] [id number] CICI HUTCHINSON Self - patient is the insured
[2024-02-13 14:06] LABS: Basophils Absolute Auto 0.03 K/mm3 (0.00-0.10); Basophils Percent Auto 0.6 % (0.0-1.0); Eosinophils Absolute Auto 0.09 K/mm3 (0.02-0.50); Eosinophils Percent Auto 1.7 % (1.0-6.0); Hematocrit 23.5 % (35.0-42.0); Hemoglobin 7.7 g/dL (11.7-13.8); Immature Granulocyte Absolute 0.02 K/mm3 (0.00-0.00); Immature Granulocyte Percent A 0.4 % (0.0-0.0); Lymphocytes Absolute Auto 1.32 K/mm3 (1.10-4.50); Lymphocytes Percent Auto 24.7 % (18.0-42.0); Mean Corpuscular HGB Conc 32.8 g/dL (32-36); Mean Corpuscular Hemoglobin 29.1 pg (27.0-31.0); Mean Corpuscular Volume 88.7 fL (78.0-102.0); Mean Platelet Volume 11.3 fl (9.2-11.8); Monocytes Absolute Auto 0.25 K/mm3 (0.10-0.90); Monocytes Percent Auto 4.7 % (2.0-11.0); Neutrophils Absolute Auto 3.63 K/mm3 (1.70-7.20); Neutrophils Percent Auto 67.9 % (50.0-70.0); Platelet Count Result 37 K/mm3 (150-420); Red Blood Count 2.65 M/mm3 (4.20-5.40); Red Cell Distribution Width 18.3 % (11.6-14.4); White Blood Count 5.3 K/mm3 (4.8-10.8)
[2024-02-13 15:17] LABS: Erythrocyte Sedimentation Rate 65 mm/hr (0-20)
[2024-02-16 09:50] LABS: Procalcitonin 0.1 ng/mL
== END 2024-02-13 13:50 | disposition home or self-care (01) ==
LOC: CHSLAB 13:51
PROVIDERS: PCP Internal Medicine; Visit Provider Internal Medicine Pulmonary Disease
DX: R06.02 Shortness of breath (principal); B96.5 Pseudomonas (aeruginosa) (mallei) (pseudomallei) as the cause of diseases classified elsewhere; J44.1 Chronic obstructive pulmonary disease with (acute) exacerbation; R05.1 Acute cough
CPT/HCPCS: 36415; 84145; 85025; 85055; 85652

== ENCOUNTER 2024-02-27 08:16 | Outpatient (CLI) | payer MEDICARE, SELFPAY ==
[2024-02-27 08:33] LABS: Hematocrit 22.5 % (35.0-42.0); Hemoglobin 7.3 g/dL (11.7-13.8); Immature Platelet Fraction Pct 2.7 % (1.0-7.0); Mean Corpuscular HGB Conc 32.4 g/dL (32-36); Mean Corpuscular Hemoglobin 29.1 pg (27.0-31.0); Mean Corpuscular Volume 89.6 fL (78.0-102.0); Mean Platelet Volume 10.4 fl (9.2-11.8); Platelet Count Result 40 K/mm3 (150-420); Red Blood Count 2.51 M/mm3 (4.20-5.40); Red Cell Distribution Width 17.9 % (11.6-14.4); White Blood Count 6.3 K/mm3 (4.8-10.8)
[2024-02-27 08:40] LABS: Hemoglobin A1C 6.7 % (<5.7)
[2024-02-27 09:05] LABS: Alanine Aminotransferase 20 U/L (14-59); Albumin Level 2.9 g/dL (3.4-5.0); Alkaline Phosphatase 95 U/L (46-116); Anion Gap 11 mmol/L (4-12); Aspartate Amino Transferase 23 U/L (15-37); Bilirubin,Total 0.6 mg/dL (0.00-1.00); Blood Urea Nitrogen 21 mg/dL (7-18); CRP 0.7 mg/dL (0.0-0.9); Calcium 8.7 mg/dL (8.5-10.1); Carbon Dioxide 28 mmol/L (21-32); Chloride 106 mmol/L (98-108); Estimated Glomerular Filt Rate 41; Glucose 92 mg/dL (70-99); Osmolality Calculated 303 mOsm/kg (285-295); Potassium 3.6 mmol/L (3.5-5.1); Sodium 145 mmol/L (136-145); Total Protein 6.6 g/dL (6.4-8.2)
[2024-02-27 09:11] LABS: Band Neutrophils Percent 0 % (0-6); Eosinophils Absolute Manual 0.12 K/mm3 (0.02-0.50); Eosinophils Percent Manual 2 % (1-6); Lymphocytes Absolute Manual 2.33 K/mm3 (1.1-4.5); Lymphocytes Percent Manual 37 % (18-44); Monocytes Percent Manual 8 % (3-9); Neutrophils Absolute Manual 3.33 K/mm3 (1.7-7.2); Neutrophils Percent Manual 53 % (46-73); Platelet Estimate Decreased (Adequate); Total Cells Counted 100
== END 2024-02-27 08:17 | disposition home or self-care (01) ==
LOC: CHSLAB 08:17
PROVIDERS: PCP Internal Medicine; Visit Provider Internal Medicine
DX: E11.9 Type 2 diabetes mellitus without complications (principal)
CPT/HCPCS: 36415; 80053; 83036; 85025; 85055; 86140

== ENCOUNTER 2024-04-01 11:14 | Outpatient (CLI) | payer MEDICARE, SELFPAY ==
[2024-04-01 11:41] LABS: Basophils Absolute Auto 0.03 K/mm3 (0.00-0.10); Basophils Percent Auto 0.5 % (0.0-1.0); Eosinophils Absolute Auto 0.33 K/mm3 (0.02-0.50); Eosinophils Percent Auto 5.2 % (1.0-6.0); Hematocrit 21.4 % (35.0-42.0); Immature Granulocyte Absolute 0.02 K/mm3 (0.00-0.00); Immature Granulocyte Percent A 0.3 % (0.0-0.0); Immature Platelet Fraction Pct 3.5 % (1.0-7.0); Lymphocytes Absolute Auto 2.04 K/mm3 (1.10-4.50); Lymphocytes Percent Auto 32.3 % (18.0-42.0); Mean Corpuscular HGB Conc 29.9 g/dL (32-36); Mean Corpuscular Hemoglobin 26.9 pg (27.0-31.0); Mean Corpuscular Volume 89.9 fL (78.0-102.0); Monocytes Absolute Auto 0.56 K/mm3 (0.10-0.90); Monocytes Percent Auto 8.9 % (2.0-11.0); Neutrophils Absolute Auto 3.33 K/mm3 (1.70-7.20); Neutrophils Percent Auto 52.8 % (50.0-70.0); Platelet Count Result 52 K/mm3 (150-420); Red Blood Count 2.38 M/mm3 (4.20-5.40); White Blood Count 6.3 K/mm3 (4.8-10.8)
[2024-04-01 11:49] LABS: Hemoglobin 6.4 g/dL (11.7-13.8)
--- OUTSIDE RECORDS SUMMARY | 2024-04-01 12:12 | XMS_ITS ---
Author Organization [facility] Address [address] [place], [place] [id number] Care Team Providers Care Small Lot Operator Name Role Phone CHI GIBSON Unavailable [phone] Jonathon Nguyen Unavailable Unavailable BILL PEREZ Unavailable [phone] REASON FOR VISIT *General care Medications Medication SIG (Take, Route, Frequency, Duration) Notes Start Date End Date Status chondroitin sulfates 250 MG Oral Capsule ORAL chondroitin sulfates 250 MG Oral CapsuleOriginal Medicationchondroitin sulfates 250 MG Oral Capsule *Reorder from [employer] for eRx and Interaction Alerts* 07/20/2012 Active Glucosamine Sulfate 500 MG Oral Tablet ORAL glucosamine sulfate 500 MG Oral TabletOriginal Medicationglucosamine sulfate 500 MG Oral Tablet *Reorder from [employer] for eRx and Interaction Alerts* 07/20/2012 Active aspirin 81 MG Delayed Release Oral Tablet [[facility] Aspirin] ORAL aspirin 81 MG Delayed Release Oral Tablet [[facility] Aspirin]Original Medicationaspirin 81 MG Delayed Release Oral Tablet [[facility] Aspirin] *Reorder from [employer] for eRx and Interaction Alerts* 07/20/2012 Active Magnesium Gluconate 550 MG Oral Tablet ORAL magnesium gluconate 550 MG Oral TabletOriginal Medicationmagnesium gluconate 550 MG Oral Tablet *Reorder from [employer] for eRx and Interaction Alerts* 07/20/2012 Active Encounters Encounter Location Date Provider Diagnosis [address] [id number] 09/11/2023 BILL PEREZ Tinea unguium B35.1 ; Pain in right toe(s) M79.674 ; Pain in left toe(s) M79.675 ; Other hammer toe(s) (acquired), right foot M20.41 ; Other hammer toe(s) (acquired), left foot M20.42 ; Unspecified atherosclerosis of tetlin arteries of extremities, bilateral legs I70.203 and [...] (ICD-10 - M20.42) 09/11/2023 Unspecified atherosclerosis of tetlin arteries of extremities, bilateral legs (ICD-10 - [...] conservative options were emphasized. Unspecified atherosclerosis of tetlin arteries of extremities, bilateral legs Patient educated [...] Details Follow Up: 3 Months, Reason: Provider Name:CHI GIBSON, 09:30:00 AM, [address] [place], [place], [id number], Progress Notes * DESTINYCICI Urrutia KDOB:[birth year] (78 yo F)Acc No.[id number]:09/11/2023 Patient:?CIIC HUTCHINSON Provider:?BILL PEREZ :1945???Age:78 Y???Sex:Female D ate:09/11/2023 Address:[address] [place] [address], [address] [place], [place] [address] Subjective: * Chief Complaints: * ???1. *General [...] breath, sputum production.?Cardiovascular:?Patient denies?chest pain, history of SD, irregular heartbeat.?Musculoskeletal:?Patient complains of?joint stiffness, hammertoes, flat feet/ planus.?Peripheral Vascular:?Patient denies?blanching of skin, cold extremities, decreased sensation in extremities.?Skin:?Patient complains of?nail changes, fungal nails.?Neurologic:?Patient denies?dizziness, gait abnormality, headache.? * Medical History:? * Medications:?Taking Magnesiu m Gluconate 550 MG Oral Tablet ORAL , Notes to Pharmacist: magnesium gluconate 550 MG Oral TabletOriginal Medicationmagnesium gluconate 550 MG Oral Tablet *Reorder from [employer] for eRx and Interaction Alerts*, Taking Glucosamine Sulfate 500 MG Oral Tablet ORAL , Notes to Pharmacist: glucosamine sulfate 500 MG Oral TabletOriginal Medicationglucosamine sulfate 500 MG Oral Tablet *Reorder from [employer] for eRx and Interaction Alerts*, Taking aspirin 81 MG Delayed Release Oral Tablet [[facility] Aspirin] ORAL , Notes to Pharmacist: aspirin 81 MG Delayed Release Oral Tablet [[facility] Aspirin]Original Medicationaspirin 81 MG Delayed Release Oral Tablet [[facility] Aspirin] *Reorder from [employer] for eRx and Interaction Alerts*, Taking chondroitin sulfates 250 MG Oral Capsule ORAL , Notes to Pharmacist: chondroitin sulfates 250 MG Oral CapsuleOriginal Medicationchondroitin sulfates 250 MG Oral Capsule *Reorder from [employer] for eRx and Interaction Alerts* Objective: * [...] (acquired), left foot - M20.42?6.?Unspecified atherosclerosis of tetlin arteries of extremities, bilateral legs - I70.203?7.?Type [...] were emphasized. ?? 3.?Unspecified atheroscleros is of tetlin arteries of extremities, bilateral legs? Notes: Patient [...] to nausea, vomiting, fever. ?? * Procedure Codes:?23531 DEBRI DE NAIL, 6 OR MORE, Modifiers: Q8 * Follow Up:?3 Months * Billing Information: * Visit Code:? * Procedure Codes:? 85168 DEBRIDE NAIL, 6 OR MORE. Modifiers: Q8 * Sign off status: Completed true * Provider:SUN PEREZ Date:?09/11/2023 Generated for Rigoberto smith/Adali/Ronyitting on:?04/01/2024 12:12 PM BUSINESS PROCESS CONSULTANT History and Physical Notes * HPI (History [...]
--- OUTSIDE RECORDS SUMMARY | 2024-04-01 12:12 | XMS_ITS | Encounter Summary ---
Author Organization [facility] Address [address] [place] [address]. [place] [address] [place] [address] Care Team Providers Care Cuff Runner Name Role Phone Non-Staff, Provider Primary Care Provider Luis troncoso Encounter Details Date Type Department Care Team (Late st Contact Info) Description 03/27/2024 [facility] [address] [place] [address] Pema Kinsey MD [address] [place] [address] Social History Tobacco Use Types Packs/Day Years Used Date Smoking Tobacco: Never Smokeless Tobacco: Never Alcohol Use Standard Drinks/Week Comments Not Currently 0 (1 standard drink = 0.6 oz pur e alcohol) Comments Unknown Sex and Gender Information Value Date Recorded Sex Assigned at Female 03/26/2024 8:00 AM INFORMATION TECHNOLOGY INTERN Legal Sex Female 11:03 PM INFORMATION TECHNOLOGY INTERN Gender Identity Not on file Sexual Orientation Not on file documented as of this encounter Functional Status * Are you deaf or do you have serious difficulty hearing Answer Date of Assessment Author Status No 12/26/2023 6:41 AM Joe Fernandez RN Active * Are you blind or do you have serious difficulty seeing, even when wearing glasses? Answer Date of Assessment Author Status No 12/26/2023 6:41 AM Joe Fernandez RN Active documented as of this encounter Plan of Treatment Not on file documented as of this encounter Visit Diagnoses Not on filedocumented in this encounter Care Teams Cuff Runner Relationship Specialty Start Date End Date Non-Staff, Provider PCP - General UNKNOWN PHYSICIAN SPECIALTY 12/25/23 documented as of this encounter
--- OUTSIDE RECORDS SUMMARY | 2024-04-01 12:12 | XMS_ITS | Patient Health Record ---
Author Organization [facility] Address [address] [place], [place] [id number] Care Team Providers Care Director Of Global Talent Name Role Phone CHI GIBSON Unavailable [phone] Jonathon Nguyen Unavailable Unavailable BILL PEREZ Unavailable [phone] Allergies No Known Allergies Reason For Referral No Information Medications Medication SIG (Take, Route, Frequency, Duration) Notes Start Date End Date Status chondroitin sulfates 250 MG Oral Capsule ORAL chondroitin sulfates 250 MG Oral CapsuleOriginal Medicationchondroitin sulfates 250 MG Oral Capsule *Reorder from [employer] for eRx and Interaction Alerts* 07/20/2012 Active aspirin 81 MG Delayed Release Oral Tablet [[facility] Aspirin] ORAL aspirin 81 MG Delayed Release Oral Tablet [Piki Aspirin]Original Medicationaspirin 81 MG Delayed Release Oral Tablet [[facility] Aspirin] *Reorder from [employer] for eRx and Interaction Alerts* 07/20/2012 Active Glucosamine Sulfate 500 MG Oral Tablet ORAL glucosamine sulfate 500 MG Oral TabletOriginal Medicationglucosamine sulfate 500 MG Oral Tablet *Reorder from [employer] for eRx and Interaction Alerts* 07/20/2012 Active Magnesium Gluconate 550 MG Oral Tablet ORAL magnesium gluconate 550 MG Oral TabletOriginal Medicationmagnesium gluconate 550 MG Oral Tablet *Reorder from [employer] for eRx and Interaction Alerts* 07/20/2012 Active Immunizations Vaccine Route Administration Date Status Comme nts Influenza, high dose seasonal Unknown 12/19/2022 Admini stered Vital Signs Height-cm 149.86 cm 07/10/2023 Weight-kg 69.85 kg 07/10/2023 Height 59.00 in 07/10/2023 Weight 154 lbs 07/10/2023 BMI 31.1 kg/m2 07/10/2023 Encounters Encounter Location Date Provider Diagnosis [facility] [address] [place], [place] [id number] 05/08/2023 BILL PEREZ Tinea unguium B35.1 ; Pain in right toe(s) M79.674 ; Pain in left toe(s) M79.675 ; Other hammer toe(s) (acquired), right foot M20.41 ; Other hammer toe(s) (acquired), left foot M20.42 ; Unspecified atherosclerosis of lytton arteries of extremities, bilateral legs I70.203 and Type 2 diabetes mellitus with other circulatory complications E11.[address] [id number] 07/10/2023 BILL PEREZ Tinea unguium B35.1 ; Pain in right toe(s) M79.674 ; Pain in left toe(s) M79.675 ; Other hammer toe(s) (acquired), right foot M20.41 ; Other hammer toe(s) (acquired), left foot M20.42 ; Unspecified atherosclerosis of lytton arteries of extremities, bilateral legs I70.203 and Type 2 diabetes mellitus with other circulatory complications E11.[address] [id number] 09/11/2023 BILL PEREZ Tinea unguium B35.1 ; Pain in right toe(s) M79.674 ; Pain in left toe(s) M79.675 ; Other hammer toe(s) (acquired), right foot M20.41 ; Other hammer toe(s) (acquired), left foot M20.42 ; Unspecified atherosclerosis of lytton arteries of extremities, bilateral legs I70.203 and Type 2 diabetes mellitus with other circulatory complications E11.[address] [id number] 11/13/2023 BILL PEREZ Tinea unguium B35.1 ; Pain in right toe(s) M79.674 ; Pain in left toe(s) M79.675 ; Other hammer toe(s) (acquired), right foot M20.41 ; Other hammer toe(s) (acquired), left foot M20.42 ; Unspecified atherosclerosis of lytton arteries of extremities, bilateral legs I70.203 and Type 2 diabetes mellitus with other circulatory complications E11.59 [address] [place], [place] [id number] 01/22/2024 BILL PEREZ Tinea unguium B35.1 ; Pain in right toe(s) M79.674 ; Pain in left toe(s) M79.675 ; Other hammer toe(s) (acquired), right foot M20.41 ; Other hammer toe(s) (acquired), left foot M20.42 ; Unspecified atherosclerosis of lytton arteries of extremities, bilateral legs I70.203 and Type 2 diabetes mellitus with other circulatory complications E11.59 Assessments Encounter Date Diagnosis (ICD Code) Assessment Notes Treatment Notes Treatment Clinical Notes Section Notes 05/08/2023 Tinea unguium (ICD-10 - B35.1) Aseptic [...] in left toe(s) (ICD-10 - M79.675) 05/08/2023 Other hammer toe(s) (acquired), right foot [...] (acquired), left foot (ICD-10 - M20.42) 05/08/2023 Unspecified atherosclerosis of lytton arteries of extremities, 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) Patient educated on risks and aggravating factors of PVD, including conservative treatment options such as a diet and exercise regimen to aid in slowing progression of vascular disease 07/10/2023 Unspecified atherosclerosis of lytton arteries of extremities, 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) Patient educated on risks and aggravating factors of PVD, including conservative treatment options such as a diet and exercise regimen to aid in slowing progression of vascular disease 09/11/2023 Unspecified atherosclerosis of lytton arteries of extremities, 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) Patient educated on risks and aggravating factors of PVD, including conservative treatment options such as a diet and exercise regimen to aid in slowing progression of vascular disease 11/13/2023 Unspecified atherosclerosis of lytton arteries of extremities, 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) Patient educated on risks and aggravating factors of PVD, including conservative treatment options such as a diet and exercise regimen to aid in slowing progression of vascular disease 01/22/2024 Unspecified atherosclerosis of lytton arteries of extremities, bilateral legs (ICD-10 - [...] Plan Of Treatment Next Appt Details Provider Name:CHI SNOOK, 09:30:00 AM, [address] [place], [place], [id number], Insurance Providers Payer Name Payer Address Payer Phone Subscriber Number Group Number Insured Name Patient Relationship to Insured Coverage Start Date Coverage End Date Medicare Part B [place] [address] [place] [phone] [id number] CICI HUTCHINSON Self - patient is the insured [facility] Life Paper Claim [address] [address] [place] [id number] CICI HUTCHINSON Self - patient is the insured
--- OUTSIDE RECORDS SUMMARY | 2024-04-01 12:13 | XMS_ITS ---
Author Organization [facility] Address [address] [place], [place] [id number] Care Team Providers Care Photographic Developer And Printer Name Role Phone CHI GIBSON Unavailable [phone] Jonathon Nguyen Unavailable Unavailable BILL PEREZ Unavailable [phone] REASON FOR VISIT *General care Medications Medication SIG (Take, Route, Frequency, Duration) Notes Start Date End Date Status aspirin 81 MG Delayed Release Oral Tablet [Vantos Aspirin] ORAL aspirin 81 MG Delayed Release Oral Tablet [Vantos Aspirin]Original Medicationaspirin 81 MG Delayed Release Oral Tablet [Vantos Aspirin] *Reorder from [employer] for eRx and Interaction Alerts* 07/20/2012 Active chondroitin sulfates 250 MG Oral Capsule ORAL chondroitin sulfates 250 MG Oral CapsuleOriginal Medicationchondroitin sulfates 250 MG Oral Capsule *Reorder from [employer] for eRx and Interaction Alerts* 07/20/2012 Active Glucosamine Sulfate 500 MG Oral Tablet ORAL glucosamine sulfate 500 MG Oral TabletOriginal Medicationglucosamine sulfate 500 MG Oral Tablet *Reorder from [employer] for eRx and Interaction Alerts* 07/20/2012 Active Magnesium Gluconate 550 MG Oral Tablet ORAL magnesium gluconate 550 MG Oral TabletOriginal Medicationmagnesium gluconate 550 MG Oral Tablet *Reorder from [employer] for eRx and Interaction Alerts* 07/20/2012 Active Encounters Encounter Location Date Provider Diagnosis [address] [id number] 11/13/2023 BILL PEREZ Tinea unguium B35.1 ; Pain in right toe(s) M79.674 ; Pain in left toe(s) M79.675 ; Other hammer toe(s) (acquired), right foot M20.41 ; Other hammer toe(s) (acquired), left foot M20.42 ; Unspecified atherosclerosis of [place] arteries of extremities, bilateral legs I70.203 and [...] (ICD-10 - M20.42) 11/13/2023 Unspecified atherosclerosis of [place] arteries of extremities, bilateral legs (ICD-10 - [...] conservative options were emphasized. Unspecified atherosclerosis of [place] arteries of extremities, bilateral legs Patient educated [...] Provider Name:CHI GIBSON, 09:30:00 AM, [address] [place], [place], [id number], Progress Notes * DESTINYCICI Urrutia KDOB:[birth year] (78 yo F)Acc No.[id number]:11/13/2023 Patient:?CICI HUTCHINSON Provider:?BILL PEREZ :1945???Age:78 Y???Sex:Female D ate:11/13/2023 Address:[address] [place] [address], [id number] Subjective: * Chief Complaints: * ???1. *General care. * HPI: ???HPI:?General care?Patient presents to the office for diabetic foot care. Patient states that their nails are thickened, elongated and painful. Patient states that it is aggravated by shoe gear. Onset is gradual., Patient denies taking blood thinners., Date last seen by Dr. Nguyen was 10/2023., Initials [facility].? * ROS:?General / Constitutional:?Patient denies?weakness.?Respiratory:?Patient denies?chronic cough, shortness of breath, sputum production.?Cardiovascular:?Patient denies?chest pain, history of OH, irregular heartbeat.?Musculoskeletal:?Patient complains of?joint stiffness, hammertoes, flat feet/ planus.?Peripheral Vascular:?Patient denies?blanching of skin, cold extremities, decreased sensation in extremities.?Skin:?Patient complains of?nail changes, fungal nails.?Neurologic:?Patient denies?dizziness, gait abnormality, headache.? * Medical History:? * Medications:?Taking Magnesiu m Gluconate 550 MG Oral Tablet ORAL , Notes to Pharmacist: magnesium gluconate 550 MG Oral TabletOriginal Medicationmagnesium gluconate 550 MG Oral Tablet *Reorder from [employer] for eRx and Interaction Alerts*, Taking Glucosamine Sulfate 500 MG Oral Tablet ORAL , Notes to Pharmacist: glucosamine sulfate 500 MG Oral TabletOriginal Medicationglucosamine sulfate 500 MG Oral Tablet *Reorder from [employer] for eRx and Interaction Alerts*, Taking aspirin 81 MG Delayed Release Oral Tablet [Vantos Aspirin] ORAL , Notes to Pharmacist: aspirin 81 MG Delayed Release Oral Tablet [Vantos Aspirin]Original Medicationaspirin 81 MG Delayed Release Oral Tablet [Vantos Aspirin] *Reorder from [employer] for eRx and Interaction Alerts*, Taking chondroitin sulfates 250 MG Oral Capsule ORAL , Notes to Pharmacist: chondroitin sulfates 250 MG Oral CapsuleOriginal Medicationchondroitin sulfates 250 MG Oral Capsule *Reorder from [employer] for eRx and Interaction Alerts* Objective: * [...] (acquired), left foot - M20.42?6.?Unspecified atherosclerosis of [place] arteries of extremities, bilateral legs - I70.203?7.?Type [...] were emphasized. ?? 3.?Unspecified atheroscleros is of [place] arteries of extremities, bilateral legs? Notes: Patient [...] to nausea, vomiting, fever. ?? * Procedure Codes:?30465 DEBRI DE NAIL, 6 OR MORE, Modifiers: Q8 * Follow Up:?3 Months * Billing Information: * Visit Code:? * Procedure Codes:? 12430 DEBRIDE NAIL, 6 OR MORE. Modifiers: Q8 * Sign off status: Completed true * Provider:SUN PEREZ Date:?11/13/2023 Generated for Rigoberto smith/Adali/eTransmitting on:?04/01/2024 12:12 PM EQUAL OPPORTUNITY REPRESENTATIVE History and Physical Notes * HPI (History [...]
--- OUTSIDE RECORDS SUMMARY | 2024-04-01 12:13 | XMS_ITS | Clinical Summary ---
Author Organization [facility] Address [address] [place] [address]. [place], [place] [id number] [place] [address] Care Team Providers Care Community Marketing Manager Name Role Phone Non-Staff, Provider Primary Care Provider Luis troncoso Allergies No known active allergies Medications ferrous sulfate, 65 mg elemental, 325 (65 FE) MG tablet Take 1 tablet (325 mg total) by mouth 3 (three) times a week. M-w- with vitamin C Active allopurinol (ZYLOPRIM) 100 MG tablet Take 1 tablet (100 mg total) by mouth daily. Active carvedilol (COREG) 25 MG tablet Take 1 tablet (25 mg total) by mouth 2 (two) times daily. Active hydroCHLOROthia zide (HYDRODIURIL) 25 MG tablet Take 1 tablet (25 mg total) by mouth every morning. Active insulin NPH (HUMULIN N) 100 UNIT/ML injection Inject into the skin 2 (two) times daily. 100 units in am and 80 units in pm Active omeprazole (PRILOSEC) 40 MG capsule Take 1 capsule (40 mg total) by mouth daily. Active simvastatin (ZOCOR) 20 MG tablet Take 1 tablet (20 mg total) by mouth nightly at bedtime. Active montelukast (SINGULAIR) 10 MG tablet Take 1 tablet (10 mg total) by mouth nightly at bedtime. Active albuterol sulfate HFA 108 (90 Base) MCG/ACT inhaler Inhale 2 puffs into the lungs every 4 (four) hours as needed for Wheezing. Active Encounters Date Type Department Care Team Description 03/27/2024 Misc Documentation [place] [address] [place] [address] Judi Arreaga MD 03/26/2024 8:03 AM DIVISION SUPERVISOR - 03/26/2024 11:59 PM DIVISION SUPERVISOR Hospital Encounter [facility] [address] [place] [address] Judi Arreaga MD Discharge Disposition: Home or Self Care (Routine Discharge) 03/26/2024 8:02 AM DIVISION SUPERVISOR Hospital Encounter [facility] Laboratory [address] [place] [address] Dawson Linton MD Discharge Disposition: Home or Self Care (Routine Discharge) 03/26/2024 Travel 03/19/2024 Pre-Procedure Call [facility] Interventional Radiology [address] [place] [address] Randee Alas RN Preprocedure Call (Spoke with Dr. Nguyen's office and they will fax over signed office notes from 03/16/24 appt) 03/19/2024 Telephone [facility] Interventional Radiology [address] [place] [address] Katlyn Thurman RN Preprocedure Call (Son called to see if patient can have bone marrow biopsy appt earlier in the morning. Appt moved to 0830 lab, 0900 hold time and 1000 procedure. Son aware of changed time, npo at midnight and will need six horse hitch driver for the way home. Son stated patient has been seen by Dr. Nguyen in [place] on 03/16. ) from Last 3 Months Social History Tobacco Use Types Packs/Day Years Used Date Smoking Tobacco: Never Smokeless Tobacco: Never Tobacco Cessation:Counseling Given: Not Answered Alcohol Use Standard Drinks/Week Comments Not Currently 0 (1 standard drink = 0.6 oz pur e alcohol) Comments Unknown Sex and Gender Information Value Date Recorded Sex Assigned at Female 03/26/2024 8:00 AM DIVISION SUPERVISOR Legal Sex Female 11:03 PM DIVISION SUPERVISOR Gender Identity Not on file Sexual Orientation Not on file Last Filed Vital Signs Vital Sign Reading Time Taken Comments Blood Pressure 137/48 03/26/2024 1:05 PM DIVISION SUPERVISOR Pulse 65 03/26/2024 1:05 PM DIVISION SUPERVISOR Temperature 35.7 ??C (96.3 ??F) 12/26/2023 9:21 AM CD T Respiratory Rate 24 03/26/2024 1:05 PM DIVISION SUPERVISOR Oxygen Saturation 94% 03/26/2024 1:18 PM DIVISION SUPERVISOR Inhaled Oxygen Concentration - - Weight 68 kg (150 lb) 03/26/2024 9:21 AM DIVISION SUPERVISOR Height 149.9 cm (4' 11 ) 03/26/2024 9:21 AM DIVISION SUPERVISOR Body Mass Index 30.3 03/26/2024 9:21 AM DIVISION SUPERVISOR Plan of Treatment Health Maintenance Due Date Last Done Comments DTaP, Tdap and Td Vaccines ( 1 - Tdap) 1962 Zoster Vaccines (1 of 2) 1993 Annual Medicare Wellness Visit 2008 Dexa Scan (General) 2008 RSV Immunization or 60+ Years (1 - 1-dose 75+ series) 2018 COVID-19 Vaccine (2023-2 5 season) 2023 Influenza Adult (#1) 2023 12/19/2022 Pneumococcal Vaccine: 65+ Years Completed 01/01/2016, 10/05/2013 Meningococcal B Vaccine Aged Out No l onger eligible based on patient's age to complete this topic Meningococcal Vaccine Aged Out No kathleen shefali eligible based on patient's age to complete this topic RSV Immunizations Under 20 Months Aged Out No longer eligible b ased on patient's age to complete this topic Procedures Procedure Name Priority Date/Time Associated Diagnosis Comments CT GD ASPIR+BX BONE MARROW Routine 03/26/2024 12:15 PM DIVISION SUPERVISOR Lymphoma, small lymphocytic ([facility]HCC) CREATININE WHOLE BLOOD Routine 03/26/2024 12:15 PM DIVISION SUPERVISOR XR CHEST PA OR AP 1V STAT 03/26/2024 10:47 AM DIVISION SUPERVISOR Lymphoma, small lymphocytic ([facility] HHS/HCC) TYPE & SCREEN STAT 03/26/2024 9:58 AM DIVISION SUPERVISOR Lymphoma, small lymphocytic ([facility] HHS/HCC) CBC W/DIFF AUTOMATED Routine 03/26/2024 8:28 AM DIVISION SUPERVISOR Lymphoma, small lymphocytic (CMS/HCC HHS/HCC) PROTHROMBIN TIME, VENOUS Routine 03/26/2024 8:28 AM DIVISION SUPERVISOR Lymphoma, small lymphocytic (CMS/HCC HHS/HCC) from Last 3 Months Results * CT GD ASPIR+BX BONE MARROW (03/26/2024 12:15 PM DIVISION SUPERVISOR) Anatomical Region Laterality Modality Bone Computed Tomogra phy, Radiographic Imaging 03/26/2024 4:31 PM DIVISION SUPERVISOR Impressions 03/26/2024 5:05 PM DIVISION SUPERVISOR IMPRESSION: CT-guided percutaneous bone marrow biopsy, ??as described. The attending radiologist, Dr. Webber, was in the department for all critical portions of the procedure, has reviewed the images, and agrees with the content of this report. Dictated By: MONA Eric on 03/26/2024 4:31 PM Ordered By: JUDI ARREAGA Interpreted By: MONA Eric, 03/26/2024 4:31 PM Narrative 03/26/2024 5:05 PM DIVISION SUPERVISOR [address] [address] PROCEDURE: CT-guided bone marrow aspiration and biopsy DATE OF PROCEDURE: 03/26/2024 11:45 AM INDICATION: History of CLL. Primary provider: Mik Kim PA-C Supervising provider: Jamshid Webber M.D. Conscious sedation: Administered and monitored by a qualified interventional radiology nurse under supervision of the interventional physician assistant manager pt. There was continuous monitoring of vital signs including pulse oximetry, end-tidal CO2, and EKG. Total intraservice or ffxt-pd-mbbo sedation time: 5 minutes. TECHNIQUE AND FINDINGS: Informed written consent was obtained. The patient was then brought to the CT scanner suite, placed in the prone position, and [place] protocol was observed to verify correct patient, site, and procedure to be performed Preliminary CT scan was then performed ??demonstrating normal bone mineralization. A safe path of approach to the right ??posterior iliac crest was selected. The skin was marked, sterilely prepared, and draped. Subsequently, after administration of local anesthesia using buffered 1% lidocaine, a 22 gauge needle was advanced to the periosteum and 0.5% Marcaine was administered for longer acting periosteal anesthesia. An introducer needle was advanced to the posterior medial cortex under intermittent CT visualization. The needle was then connected to an [employer] motorized device to penetrate the cortex. At this point, the stylette was removed and serial aspiration of a total of 10 mL of marrow was obtained. ??Following this, again using the motorized device, a roughly 2 cm marrow core sample was obtained. The needle was removed and a sterile dressing was applied. Followup CT imaging demonstrated no evidence of hematoma or other complication. The patient tolerated the procedure well without any complication and was transferred to recovery area in stable condition. A dose lowering technique was used for this procedure, which may include, but is not limited to, dose reduction techniques, automated exposure control, the use of a iterative reconstruction, and ALARA (as low as reasonably achievable)/image gently techniques. EBL: Minimal Procedure Note Jamshid Webber MD - 03/26/[address] [address] PROCEDURE: CT-guided bone marrow aspiration and biopsy DATE OF PROCEDURE: 03/26/2024 11:45 AM INDICATION: History of CLL. Primary provider: Mik Kim PA-C Supervising provider: Jamshid Webber M.D. Conscious sedation: Administered and monitored by a qualifiedinterventional radiology nurse under supervision of the interventionalphysician assistant manager pt. There was continuous monitoring of vital signsincluding pulse oximetry, end-tidal CO2, and EKG. Total intraservice buecat-uq-ebqy sedation time: 5 minutes. TECHNIQUE AND FINDINGS: Informed written consent was obtained. The patient was then brought to theCT scanner suite, placed in the prone position, and [place] protocol wasobserved to verify correct patient, site, and procedure to be performedPreliminary CT scan was then performed demonstrating normal bonemineralization. A safe path of approach to the right posterior iliaccrest was selected. The skin was marked, sterilely prepared, and draped.Subsequently, after administration of local anesthesia using buffered 1%lidocaine, a 22 gauge needle was advanced to the periosteum and 0.5%Marcaine was administered for longer acting periosteal anesthesia. Anintroducer needle was advanced to the posterior medial cortex underintermittent CT visualization. The needle was then connected to an[employer] motorized device to penetrate the cortex. At this point, thestylette was removed and serial aspiration of a total of 10 mL of marrowwas obtained. Following this, again using the motorized device, a roughly2 cm marrow core sample was obtained. The needle was removed and a steriledressing was applied. Followup CT imaging demonstrated no evidence ofhematoma or other complication. The patient tolerated the procedure wellwithout any complication and was transferred to recovery area in stablecondition. A dose lowering technique was used for this procedure, which may include,but is not limited to, dose reduction techniques, automated exposurecontrol, the use of a iterative reconstruction, and ALARA (as low asreasonably achievable)/image gently techniques. EBL: Minimal IMPRESSION: CT-guided percutaneous bone marrow biopsy, as described. The attending radiologist, Dr. Webber, was in the department for allcritical portions of the procedure, has reviewed the images, and agreeswith the content of this report. Dictated By: MONA Eric on 03/26/2024 4:31 PM Ordered By: JUDI ARREAGA Interpreted By: MONA Eric, 03/26/2024 4:31 PM Judi Arreaga MD CT Final Result * (ABNORMAL) CREATININE WHOLE BLOOD (03/26/2024 12:15 PM DIVISION SUPERVISOR) CREATININE WHOLE BLOOD 0.9 0.6 - 1.3 mg/dL 03/26/2024 12:24 PM DIVISION SUPERVISOR [facility] GFR ESTIMATE 65(L) >90 ML/MIN/1. 73 M2 03/26/2024 12:24 PM DIVISION SUPERVISOR [facility] GFR NOTES GFR REFERENCE S: 03/26/2024 12:24 PM DIVISION SUPERVISOR [facility] Comment: THE ESTIMATED GFR IS CALCULATED USING THE 2020 CKD-EPI EQUATION. THE FOLLOWING CATEGORIES FOR GRADING RENAL FUNCTION ARE RECOMMENDED BY THE INTERNATIONAL SOCIETY OF NEPHROLOGY (KDIGO 2012 CLINICAL PRACTICE GUIDELINE). G1,NORMAL OR HIGH: >89 ml/min/1.73 m2 G2,MILDLY DECREASED: 60-89 ml/min/1.73 m2 G3A,MILDLY TO MODERATELY DECREASED: 45-59 ml/min/1.73 m2 G3B,MODERATELY TO SEVERELY DECREASED: 30-44 ml/min/1.73 m2 G4,SEVERELY DECREASED: 15-29 ml/min/1.73 m2 G5,KIDNEY FAILURE: <15 ml/min/1.73 m2 TIME TEST WAS PERFORMED: 1215 03/26/2024 12:24 PM DIVISION SUPERVISOR [facility] 03/26/2024 12:1 5 PM DIVISION SUPERVISOR Dawson Linton MD LABORATORY Final Result [facility] [address] [place] [address], [id number] * XR CHEST PA OR AP 1V (03/26/2024 10:47 AM DIVISION SUPERVISOR) Anatomical Region Laterality Modality Chest Radiographic Fidelia ging 03/26/2024 11:0 4 AM DIVISION SUPERVISOR Impressions 03/26/2024 11:14 AM DIVISION SUPERVISOR IMPRESSION: Cardiomegaly with probable pulmonary congestion/mild interstitial CHF.Patchy opacity in the left midlung laterally which could represent pneumonia. Recommend correlation with any recent outside films if possible. Ordered By: JAMSHID WEBBER Interpreted By: Jamshid Webber MD, 03/26/2024 11:04 AM Narrative 03/26/2024 11:14 AM DIVISION SUPERVISOR [place] [address] EXAM DESCRIPTION: Chest 1 view EXAM TIME : 03/26/2024 10:44 AM INDICATION: Shortness of breath. History of CLL. Patient apparently has history of ELIER. COMPARISON FILM : CTA chest 08/23/2016. TECHNIQUE: ??Chest- 1 - view, 1 - images FINDINGS: Upright AP film obtained. Interval removal of previously present Xalagm-r-Xtlq. ??Mild cardiomegaly. Calcified aortic knob. Central pulmonary congestion with interstitial changes suggestive of CHF. In addition there is patchy groundglass opacity in the left midlung laterally which could represent pneumonia. Lungs questionable very minimal blunting left costophrenic angle, no significant size effusions. No pneumothorax. ??No acute bony abnormality. Procedure Note Jamshid Webber MD - 03/26/2024 [facility] [address] [place], [place] [address] EXAM DESCRIPTION: Chest 1 view EXAM TIME : 03/26/2024 10:44 AM INDICATION: Shortness of breath. History of CLL. Patient apparently hashistory of ELIER. COMPARISON FILM : CTA chest 08/23/2016. TECHNIQUE: Chest- 1 - view, 1 - images FINDINGS: Upright AP film obtained. Interval removal of previously wkobqhvPlcjya-g-Umrf. Mild cardiomegaly. Calcified aortic knob. Centralpulmonary congestion with interstitial changes suggestive of CHF. Inaddition there is patchy groundglass opacity in the left midlung laterallywhich could represent pneumonia. Lungs questionable very minimal bluntingleft costophrenic angle, no significant size effusions. No pneumothorax.No acute bony abnormality. IMPRESSION: Cardiomegaly with probable pulmonary congestion/mildinterstitial CHF.Patchy opacity in the left midlung laterally which couldrepresent pneumonia. Recommend correlation with any recent outside filmsif possible. Ordered By: JAMSHID WEBBER Interpreted By: Jamshid Webber MD, 03/26/2024 11:04 AM us Jamshid Webber MD GENERAL IMAGING Final Resu lt * TYPE & SCREEN (03/26/2024 9:58 AM DIVISION SUPERVISOR) UNITS ORDERED 1 03/26/2024 10:20 AM DIVISION SUPERVISOR [facility] ABO/RH A POSITIVE 03/26/2024 10:54 AM DIVISION SUPERVISOR [facility] ANTIBODY SCREEN NEGATIVE 03/26/2024 10:54 AM [facility] SAMPLE EXPIRATION 03/29/2024,2 359 03/26/2024 10:09 AM DIVISION SUPERVISOR [facility] 03/26/2024 9:58 AM DIVISION SUPERVISOR Mik Kim PA-C BLOOD BANK TEST ORDERABLES Final Result Performing Organization Address [facility] Co de Phone Number [facility] [address] [place] [address], [phone] * (ABNORMAL) PROTIME/INR, VENOUS (PROTHROMBIN TIME) (03/26/2024 8:28 AM DIVISION SUPERVISOR) Pathologist [facility] PROTIME 14.3(H) 9.4 - 12.5 SEC 03/26/2024 9:06 AM [facility] INR 1.2(H) 0.8 - 1.1 03/26/2024 9:06 AM [facility] 03/26/2024 8:28 AM DIVISION SUPERVISOR Dawson Linton MD LABORATORY Final Result Performing Organization Address [facility]/ZIP Co de Phone Number [facility] [address] [place] [address], [place] [phone] * (ABNORMAL) CBC W/DIFF AUTOMATED (03/26/2024 8:28 AM DIVISION SUPERVISOR) WBC 6.16 4.00 - 10.80 x10'3/uL 03/26/2024 9:26 AM DIVISION SUPERVISOR [facility] RBC 2.39(L) 4.10 - 5.40 x10'6/uL 03/26/2024 9:26 AM [facility] HGB 6.7(LL) 12.0 - 16.0 G/DL 03/26/2024 9:26 AM [facility] Comment: This result has been called to [id number] IN RADIOLOGY by [id number] on 03/26/2024 09:24:23, and has been read back. HCT 21.8(L) 36.0 - 47.0 % 03/26/2024 9:26 AM [facility] MCV 91.2 78.0 - 100.0 FL 03/26/2024 9:26 AM [facility] MCH 28.0 27.0 - 31.0 PG 03/26/2024 9:26 AM [facility] MCHC 30.7(L) 33.0 - 36.0 G/DL 03/26/2024 9:26 AM [facility] RDW 17.1(H) 11.5 - 14.5 % 03/26/2024 9:26 AM [facility] PLT 48(L) 150 - 350 x10'3/uL 03/26/2024 9:26 AM [facility] MPV 10.8(H) 7.4 - 10.4 FL 03/26/2024 9:26 AM [facility] DIFFERENTIAL TYPE MANUAL DIFFERENTIAL 03/26/2024 9:29 AM [facility] NRBC % 0.0 % 03/26/2024 9:29 AM [facility] SEG NEUTROPHILS 70 % 9:29 AM [facility] LYMPHOCYTES 22 % 03/26/2024 9:29 AM [facility] MONOCYTES 4 % 03/26/2024 9:29 AM [facility] EOSINOPHILS 3 % 03/26/2024 9:29 AM [facility] BASOPHILS 1 % 03/26/2024 9:29 AM [facility] ABS. NEUTROPHILS 4.31 1.60 - 8.30 x10'3/uL 03/26/2024 9:29 AM [facility] ABS. LYMPHOCYTES 1.36 0.80 - 4.70 x10'3/uL 03/26/2024 9:29 AM [facility] ABS. MONOCYTES 0.25 0.00 - 1.50 x10'3/uL 03/26/2024 9:29 AM DIVISION SUPERVISOR [facility] ABS. EOSINOPHILS 0.18 0.00 - 0.40 x10'3/uL 03/26/2024 9:29 AM [facility] ABS. BASOPHILS 0.06 0.00 - 0.20 x10'3/uL 03/26/2024 9:29 AM [facility] ABS. NUCLEATED RBC'S 0.00 0.00 - 0.01 x10'3/uL 03/26/2024 9:29 AM [facility] RBC MORPHOLOGY SLIDE REVIEWED 2024 9:29 AM DIVISION SUPERVISOR [facility] ANISO SLIGHT 03/26/2024 9:29 AM [facility] POIKLO SLIGHT 03/26/2024 9:29 AM [facility] HYPOCHROMASIA SLIGHT 03/26/2024 9:29 AM [facility] OVALOCYTES PRESENT 03/26/2024 9:29 AM [facility] TEAR DROP PRESENT 03/26/2024 9:29 AM [facility] PLT EST. DECREASED 03/26/2024 9:29 AM [facility] 03/26/2024 8:28 AM DIVISION SUPERVISOR us Dawson Linton MD LABORATORY Final Result [facility] [address] [place] [address], [phone] from Last 3 Months Insurance [employer] Care Teams Community Marketing Manager Relationship Specialty Start Date End Date Non-Staff, Provider PCP - General UNKNOWN PHYSICIAN SPECIALTY 12/25/23
--- OUTSIDE RECORDS SUMMARY | 2024-04-01 12:13 | XMS_ITS | Encounter Summary ---
Author Organization [facility] Address [address] [place] [address]. [place], [place] [address] [place] [address] Care Team Providers Care International Nurse Name Role Phone Non-Staff, Provider Primary Care Provider Luis troncoso Reason for Visit * Reason Onset Date Comments Preprocedure Call 03/19/[address] Nguyen's office and they will fax over signed office notes from 03/16/24 appt Encounter Details Date Type Department Care Team (Latest Contact Info) Description 03/19/2024 Pre-Procedure Call [facility] Interventional Radiology [address] [place] [address] Randee Alas RN Preprocedure Call (Spoke with Dr. Nguyen's office and they will fax over signed office notes from 03/16/24 appt) Social History Tobacco Use Types Packs/Day Years Used Date Smoking Tobacco: Never Smokeless Tobacco: Never Alcohol Use Standard Drinks/Week Comments Not Currently 0 (1 standard drink = 0.6 oz pur e alcohol) Comments Unknown Sex and Gender Information Value Date Recorded Sex Assigned at Female 03/26/2024 8:00 AM FIRE HOSE CURER Legal Sex Female 11:03 PM FIRE HOSE CURER Gender Identity Not on file Sexual Orientation Not on file documented as of this encounter Functional Status * Are you deaf or do you have serious difficulty hearing Answer Date of Assessment Author Status No 12/26/2023 6:41 AM BRYANT Joe Perea RN Active * Are you blind or do you have serious difficulty seeing, even when wearing glasses? Answer Date of Assessment Author Status No 12/26/2023 6:41 AM CDT Joe Perea RN Active documented as of this encounter Plan of Treatment Not on file documented as of this encounter Visit Diagnoses Not on filedocumented in this encounter Care Teams International Nurse Relationship Specialty Start Date End Date Non-Staff, Provider PCP - General UNKNOWN PHYSICIAN SPECIALTY 12/25/23 documented as of this encounter
--- OUTSIDE RECORDS SUMMARY | 2024-04-01 12:13 | XMS_ITS | Data Portability ---
Author Organization [employer], Main Office Address [address] [place] [address] Care Team Providers Care Child Care Aide Name Role Phone KEANU SANTIAGO Primary Care Provider [phone] KEANU SANTIAGO Referring Provider Assessment Encounter Date [...] more than half the time spent in tinx-yh-dvur care. Not available 02/01/2023 14:31:51 03/07/2023 03/07/2023 [...] spent treatment patient more half of this rxjc-ir-rppg conversation Not available 03/07/2023 12:20:35 03/28/2023 03/28/2023 [...] knee 024 03/07/19 24 [email or web address] [facility] [place], [address], [place], [address], 4 12:21:50 XR, knee 024 03/28/19 24 [email or web address] [facility] [place], [address], [place], [address], 4 16:37:40 Medication Orders None record ed. Patient TargetsNo targets recorded. Patient InstructionsNo instructions recorded. Reason for Referral None Reported. Results Created Date Observation Date Name Description Value Unit Range Abnormal Flag Note LastModifiedBy Organization Detail LastModifiedTime 06/07/19 22 XR, hand No observ ation record ed. [id number] [facility] [place] [address], [place], [address], 05/02/2022 01:01:26 06/07/19 22 XR, shoul karlie No observ ation record ed. [id number] [facility] [place] [address], [place], [address], 05/02/2022 01:01:26 06/21/19 22 XR, humer us No observ ation record ed. [id number] [facility] [place] [address], [place], [address], 05/02/2022 01:01:26 07/05/19 22 XR, hand No observ ation record ed. [id number] [facility] [place] [address], [place], [address], 05/02/2022 01:01:26 07/05/19 22 XR, shoul karlie No observ ation record ed. [id number] [facility] [place] [address], [place], [address], 05/02/2022 01:01:26 07/28/19 22 07/27/2021 XR, shoul karlie No observ ation record ed. [id number] [facility] [place] [address], [place], [address], 05/02/2022 01:01:26 01/30/20 23 XR, knee No observ ation record ed. [email or web address] Not Available 2022 16:59:15 03/07/19 24 XR, knee No observ ation record ed. [facility] [place] [address], [place], [address], 03/07/2023 12:18:44 03/28/19 24 XR, knee No observ ation record ed. [facility] [place] [address], [place], [address], 03/28/2023 16:31:08 Result Notes None recorded. Problems Name Problem SNOMED Code Status Onset Date Resolution Date Notes Provider Name and Address Organization Details Recorded Time Pain of right shoulder joint 89891614571415 100 Active 2021 [facility] Available [facility] 3 00:59:39 Fracture of phalanx of finger 09407078 Active 2021 Not Available [facility] 3 00:59:39 Pain of left hand 93835467203748 3 Active 2021 Not Available [facility] 3 00:59:39 Closed fracture of upper end of humerus 23997844 Active 2021 Not Available [facility] 3 00:59:40 Pain of right knee joint 52009900774440 0 Active 2022 NAPOLEON Wan, [facility] 3 12:25:42 Fracture of ankle 92626688 Active 2023 NAPOLEON Wan, [facility] 4 10:58:49 Closed fracture of right patella 54635598872900 100 Active 2023 MONA Red [address] [place] [address], [facility] [address], [place], [address] , [facility] 4 11:35:53 Problem Notes None recorded. Procedures Surgical History Date Name Laterality Status Provider Name and Address Organization Details Recorded Time Breast Surgery completed Not Available [facility] 05/02/2022 00:58:24 procedure on hand completed Not Available [facility] 05/02/2022 00:58:24 Cataract Surgery completed Not Available [facility] 05/02/2022 00:58:24 Imaging Results Imaging Date Name Status [facility] Details LastModified Time 06/06/2021 XR, hand completed [id number] 30 026 [facility] [place] [address], [place], [address], 05/02/2022 01:01:26 06/06/2021 XR, shoulder completed [id number] 30 026 [facility] [place] [address], [place], [address], 05/02/2022 01:01:26 06/20/2021 XR, humerus completed [id number] 30 026 [facility] [place] [address], [place], [address], 05/02/2022 01:01:26 07/27/2021 XR, shoulder completed [id number] 30 026 [facility] [place] [address], [place], [address], 05/02/2022 01:01:26 07/04/2021 XR, hand completed [id number] 30 026 [facility] [place] [address], [place], [address], 05/02/2022 01:01:26 07/04/2021 XR, shoulder completed [id number] 30 026 [facility] [place] [address], [place], [address], 05/02/2022 01:01:26 01/29/2023 XR, knee completed Information no t available 01/29/2023 16:59:15 03/07/2023 XR, knee completed [facility] [place] [address], [address], 03/07/2023 12:18:44 03/28/2023 XR, knee completed [facility] [place] [address], [place], [address], 03/28/2023 16:31:08 Procedure Notes None recorded. Medical [...] Updated DateTime 07/04/2021 144.78 cm Not Available [facility] 3 00:58:55 Date Recorded Body height Provider Name an d Address Organization Details Last Updated DateTime 07/27/2021 144.78 cm Not Available [facility] 3 00:58:55 Date Recorded Body height Body mass index (BMI) Body weight Provider Name and Address Organization Details Last Updated DateTime 01/31/2023 144.78 cm 32.9 kg/m2 64047.04 g Krys Campos [facility] [employer] [facility] 01/31/2023 12:39:06 Date Recorded Body height Provider Name an d Address Organization Details Last Updated DateTime 03/07/2023 144.78 cm Krys Campos Mary Jo [facility] 03/07/2023 10:57:14 Date Recorded Body height Provider Name an d Address Organization Details Last Updated DateTime 03/28/2023 144.78 cm Michela Crowellmons [facility] 03/28/2023 14:13:14 Social History Question Answer Notes LastModified by Organizat ion Details LastModified Time Tobacco Smoking Status Never Smoker Not Available [facility] 05/02/2022 00:58:03 What Is Your Level Of Alcohol Consumption? None [id number] Information not available 05/02/2022 Sex: Unknown Functional Status None recorded. Mental Status None recorded. Family History Relationship Description Onset Age of this Age Resolved Age Notes LastModified by Organization Details LastModified Time Father Hypertensive disorder [id number] Not available 05/02/2022 00:58:26 Father Diabetes mellitus [id number] Not available 05/02/2022 00:58:26 Mother Hypertensive disorder [id number] Not available 05/02/2022 00:58:26 Mother Diabetes mellitus [id number] Not available 05/02/2022 00:58:26 Medical History Condition Response BLINDNESS N KIDNEY STONES N MRSA N CARPAL TUNNEL SYNDROME N LUNG DISEASE/DISORDER N HISTORY OF DRUG ABUSE N RADIATION / CHEMOTHERAPY N COPD N SPORTS INJURY N ANKLE PAIN N BLOOD DISEASES N SCHIZOPHRENIA N SHINGLES N SHOULDER PAIN N DEPRESSION (INCLUDING POST ) N BOWEL PROBLEMS N STROKE/TIA N ULCERS N KNEE PAIN [...] N NEUROPATHY N AIDS/HIV N FRACTURES N HYPERTENSION N ELBOW PAIN N TOURETTE'S N Metal allergy N ANXIETY DISORDER N BLOOD TRANSFUSION N ANEMIA/BLOOD DISORDER N BIPOLAR DISORDER N BRONCHITIS N OSTEOARTHRITIS N TUBERCULOSIS N FOOT PROBLEM N HEART VALVE DISORDERS N ALLERGIES/HAYFEVER N SOFT TISSUE INJURY N INFECTIOUS DISEASE N HEART ARRHYTHMIA N INSOMNIA N HIGH CHOLESTEROL / HYPERLIPIDEMIA N RHEUMATOID ARTHRITIS N EDEMA N CHRONIC PAIN SYNDROME N CAROTID BLOCKAGE N BACK / NECK PROBLEMS N HAVE YOU BEEN HOSPITALIZED OR SEEN IN [facility] IN THE PAST YEAR ? N BURSITIS N HERNIATED DISC N DIALYSIS N FIBROMYALGIA N OSTEOPOROSIS N ARTHRITIS N NO SIGNIFICANT PAST MEDICAL HISTORY N PERIPHERAL NEUROPATHY N DIABETES, TYPE Y HEARTBURN / REFLUX N HEPATITIS / LIVER DISEASE N GOUT Y ALZHEIMER'S DISEASE N SLEEP DISORDER N HERPES N HEADACHES/MIGRAINES N SEIZURES/EPILEPSY N VASCULAR DISEASE N Blood Disorder N HIP PAIN N DIZZINESS N HEAD TRAUMA OR INJURY N HEART DISEASE/HEART PROBLEMS N MULTIPLE SCLEROSIS N CANCER: SPECIFY N CARDIAC ARRHYTHMIA N ANESTHESIA COMPLICATIONS N ATRIAL FIBRILLATION N AUTOIMMUNE DISEASE N Gynecological HistoryNo gynecological history recorded. Obstetrics History GPAL:G 0 P 0 0 0 0 Past Encounters Encounter ID Performer Location Encounter Start Date Encounter Closed Date Diagnosis/Indication Diagnosis SNOMED-CT Code Diagnosis ICD10 Code Diagnosis Note [id number] [facility] [place] [address] [place] [address] 05/23/2021 00:00:00 05/27/2021 12:10:32 [id number] [facility] [place] [address] [place] [address] 06/06/2021 00:00:00 06/06/2021 14:59:59 [id number] [facility] [place] [address] [place] [address] 06/20/2021 00:00:00 06/20/2021 10:31:52 [id number] [facility] [place] [address] [place] [address] 07/04/2021 00:00:00 07/04/2021 17:33:55 [id number] [facility] [place] [address] [place] [address] 07/27/2021 00:00:00 07/30/2021 17:54:03 [id number] Christian Olsen MD [facility] [place] [address] [place] [address] 01/31/2023 12:01:28 02/03/2023 10:53:27 Pain of right knee joint 9688851491 00203 M25.992 [id number] MONA Red [facility] [place] [address] [place] [address] 03/07/2023 10:46:53 03/07/2023 12:21:50 Closed fracture of right patella 3395479117 2637720 S82.001A [id number] MONA Red [facility] [place] [address] [place] [address] 03/28/2023 14:03:48 03/28/2023 16:37:40 Pain of right knee joint 0684412082 58908 M25.561 Health Concerns Section Related Observation LastModified by Organization Detai ls LastModified Time None Recorded Concern Status LastModified by Organization Details LastModified Time None Recorded Advance Directives Directive None Recorded Payers Encounter Date Sequence Insurance Name Policy Number Policy Guerrero Covered Member ID Guerrero Member ID Guarantor Name 01/31/2023 1 [place] Elayne Salmeron [id number] Elayne Salmeron 01/31/2023 2 [employer] (MEDICARE SUPPLEMENT) Elayne Salmeron [id number] Elayne Salmeron 03/07/2023 1 [place] Elayne Tamayoy [id number] Elayne Salmeron 03/07/2023 2 [employer] (MEDICARE SUPPLEMENT) Elayne Tamayoy [id number] Elayne Salmeron 03/28/2023 1 [place] Elayne Tamayoy [id number] Elayne Salmeron 03/28/2023 2 [employer] (MEDICARE SUPPLEMENT) Elayne Salmeron [id number] Elayne Salmeron Notes Date Note Type Note [...] with her son today. Christian Olsen MD [address] [place] [address], [facility] [address], [place], [address], [facility] 02/01/2023 14:32:04 OBGyn Episode No OBEpisode recorded.
--- OUTSIDE RECORDS SUMMARY | 2024-04-01 12:13 | XMS_ITS ---
Author Organization [facility] Address [address] [place], [place] [address] Care Team Providers Care Instrument Fitter Name Role Phone CHI GIBSON Unavailable [phone] Jonathon Nguyen Unavailable Unavailable BILL PEREZ Unavailable [phone] REASON FOR VISIT *General care Medications Medication SIG (Take, Route, Frequency, Duration) Notes Start Date End Date Status chondroitin sulfates 250 MG Oral Capsule ORAL chondroitin sulfates 250 MG Oral CapsuleOriginal Medicationchondroitin sulfates 250 MG Oral Capsule *Reorder from [facility] for eRx and Interaction Alerts* 07/20/2012 Active aspirin 81 MG Delayed Release Oral Tablet [Katelyn Aspirin] ORAL aspirin 81 MG Delayed Release Oral Tablet [IncreaseCard Aspirin]Original Medicationaspirin 81 MG Delayed Release Oral Tablet [IncreaseCard Aspirin] *Reorder from [employer] for eRx and Interaction Alerts* 07/20/2012 Active Glucosamine Sulfate 500 MG Oral Tablet ORAL glucosamine sulfate 500 MG Oral TabletOriginal Medicationglucosamine sulfate 500 MG Oral Tablet *Reorder from [facility] for eRx and Interaction Alerts* 07/20/2012 Active Magnesium Gluconate 550 MG Oral Tablet ORAL magnesium gluconate 550 MG Oral TabletOriginal Medicationmagnesium gluconate 550 MG Oral Tablet *Reorder from [facility] for eRx and Interaction Alerts* 07/20/2012 Active Encounters Encounter Location Date Provider Diagnosis [place] [place], [place] [id number] 01/22/2024 BILL PEREZ Tinea unguium B35.1 ; Pain in right toe(s) M79.674 ; Pain in left toe(s) M79.675 ; Other hammer toe(s) (acquired), right foot M20.41 ; Other hammer toe(s) (acquired), left foot M20.42 ; Unspecified atherosclerosis of [place] arteries of extremities, bilateral legs I70.203 and [...] (ICD-10 - M20.42) 01/22/2024 Unspecified atherosclerosis of [place] arteries of extremities, bilateral legs (ICD-10 - [...] conservative options were emphasized. Unspecified atherosclerosis of [place] arteries of extremities, bilateral legs Patient educated [...] Provider Name:CHI GIBSON, 09:30:00 AM, [address], [place], [id number], Progress Notes * DESTINYCICI Urrutia KDOB:[birth year] (78 yo F)Acc No.[id number]:01/22/2024 Patient:?CICI HUTCHINSON Provider:?BILL PEREZ :1945???Age:78 Y???Sex:Female D ate:01/22/2024 Address:[address] [place] [address], [address] [place], [place] [id number] Subjective: * Chief Complaints: * ???1. *General care. * HPI: ???HPI:?General care?Patient presents to the office for diabetic foot care. Patient states that their nails are thickened, elongated and painful. Patient states that it is aggravated by shoe gear. Onset is gradual., Patient denies taking blood thinners., Date last seen by Dr. Nguyen was 01/2024., Initials [facility].? * ROS:?General / Constitutional:?Patient denies?weakness.?Respiratory:?Patient denies?chronic cough, shortness of breath, sputum production.?Cardiovascular:?Patient denies?chest pain, history of MA, irregular heartbeat.?Musculoskeletal:?Patient complains of?joint stiffness, hammertoes, flat feet/ planus.?Peripheral Vascular:?Patient denies?blanching of skin, cold extremities, decreased sensation in extremities.?Skin:?Patient complains of?nail changes, fungal nails.?Neurologic:?Patient denies?dizziness, gait abnormality, headache.? * Medical History:? * Medications:?Taking Magnesiu m Gluconate 550 MG Oral Tablet ORAL , Notes to Pharmacist: magnesium gluconate 550 MG Oral TabletOriginal Medicationmagnesium gluconate 550 MG Oral Tablet *Reorder from [facility] for eRx and Interaction Alerts*, Taking Glucosamine Sulfate 500 MG Oral Tablet ORAL , Notes to Pharmacist: glucosamine sulfate 500 MG Oral TabletOriginal Medicationglucosamine sulfate 500 MG Oral Tablet *Reorder from [facility] for eRx and Interaction Alerts*, Taking aspirin 81 MG Delayed Release Oral Tablet [IncreaseCard Aspirin] ORAL , Notes to Pharmacist: aspirin 81 MG Delayed Release Oral Tablet [IncreaseCard Aspirin]Original Medicationaspirin 81 MG Delayed Release Oral Tablet [IncreaseCard Aspirin] *Reorder from [facility] for eRx and Interaction Alerts*, Taking chondroitin sulfates 250 MG Oral Capsule ORAL , Notes to Pharmacist: chondroitin sulfates 250 MG Oral CapsuleOriginal Medicationchondroitin sulfates 250 MG Oral Capsule *Reorder from [facility] for eRx and Interaction Alerts* Objective: * [...] (acquired), left foot - M20.42???6.?Unspecified atherosclerosis of [place] arteries of extremities, bilateral legs - I70.203???7.?Type [...] were emphasized. ?? 3.?Unspecified atheroscleros is of [place] arteries of extremities, bilateral legs? Notes: Patient [...] to nausea, vomiting, fever. ?? * Procedure Codes:?59453 DEBRI DE NAIL, 6 OR MORE, Modifiers: Q8 * Follow Up:?3 Months * Agustíning Information: * Visit Code:? * Procedure Codes:? 21471 DEBRIDE NAIL, 6 OR MORE. Modifiers: Q8 * ON PAPER COATING SUPERVISOR Sign off status: Completed true * Provider:SUN PEREZ Date:?01/22/2024 Generated for Rigoberto smith/Adali/Ronyitting on:?04/01/2024 12:12 PM CARBON PAPER COATING SUPERVISOR History and Physical Notes * HPI (History [...]
== END 2024-04-01 11:15 | disposition home or self-care (01) ==
LOC: CHSLAB 11:16
PROVIDERS: PCP Internal Medicine; Visit Provider Internal Medicine Hematology
DX: C83.00 Small cell B-cell lymphoma, unspecified site (principal); D69.6 Thrombocytopenia, unspecified
CPT/HCPCS: 36415; 85025; 85055; 86850; 86880; 86900; 86901; 86902

== ENCOUNTER 2024-04-01 15:15 | Emergency (ER) | payer MEDICARE, SELFPAY ==
--- NOTE | ~2024-04-01 | CT_ITS ---
History: None provided PROCEDURE: CT head without contrast. COMPARISON: 01/23/2024 TECHNIQUE: Axial imaging of the head performed from the skull base to the vertex without IV contrast. Sagittal a nd coronal reformations obtained. DLP: 605 mGy-cm FINDINGS: The ventricles are normal in size, shape and position. There is no mass, mass effect or midline shift. There is no abnormal extra-axial fluid collection or intracranial hemorrhage. Visualized paranasal sinuses are clear. Complete opacification of the bilateral maxillary sinuses with remodeling of the medial la of the sinuses which are thinned and medially bowed consistent with likely mucoceles. There is also near com plete opacification of the bilateral sphenoid sinuses with thickened sclerotic la consistent with chronic sinusitis. The mastoid air cells are well aerated. No acute displaced fractures within the overlying cranium. Impression: No acute intracranial hemorrhage or suspicious mass effect. Findings consistent with likely mucoceles, and pansinusitis Reviewed, dictated and finalized at location A. TAL ADVISOR Impression: No acute intracranial hemorrhage or suspicious mass effect. Findings consistent with likely mucoceles, and pansinusitis
[2024-04-01 15:15] VITALS: BP 131/68; PULSE 70; RESP 16; TEMP 36.3; O2SAT 98
--- OUTSIDE RECORDS SUMMARY | 2024-04-01 15:40 | XMS_ITS | Encounter Summary ---
Author Organization [facility] Address [address] [place] [address]. [place] [address] [place] [address] Care Team Providers Care Oxide Furnace Tender Name Role Phone Non-Staff, Provider Primary Care Provider Luis troncoso Encounter Details Date Type Department Care Team (Late st Contact Info) Description 03/27/2024 [facility] Documentation [place] [address] [place] [address] Pema Kinsey MD [address] [place] [address] Social History Tobacco Use Types Packs/Day Years Used Date Smoking Tobacco: Never Smokeless Tobacco: Never Alcohol Use Standard Drinks/Week Comments Not Currently 0 (1 standard drink = 0.6 oz pur e alcohol) Comments Unknown Sex and Gender Information Value Date Recorded Sex Assigned at Female 03/26/2024 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
--- OUTSIDE RECORDS SUMMARY | 2024-04-01 15:41 | XMS_ITS | Encounter Summary ---
Author Organization [facility] Address [address] [place] [address]. [place], [place] [address] [place] [address] Care Team Providers Care Area Intelligence Technician Name Role Phone Non-Staff, Provider Primary Care Provider Luis troncoso Reason for Visit * Reason Onset Date Comments Preprocedure Call 03/19/[address] Nguyen's office and they will fax over signed office notes from 03/16/24 appt Encounter Details Date Type Department Care Team (Latest Contact Info) Description 03/19/2024 Pre-Procedure Call [facility] Interventional Radiology [address] [place] [address] Randee Alas RN Preprocedure Call [...] Sex Assigned at Female 03/26/2024 8:00 AM CAR JOCKEY Legal Sex Female 11:03 PM CAR JOCKEY Gender Identity Not on file Sexual Orientation [...] on filedocumented in this encounter Care Teams Area Intelligence Technician Relationship Specialty Start Date End Date Non-Staff, Provider PCP - General UNKNOWN PHYSICIAN SPECIALTY 12/25/23 documented as of this encounter
--- OUTSIDE RECORDS SUMMARY | 2024-04-01 15:41 | XMS_ITS | Clinical Summary ---
Author Organization [facility] Address [address] [place] [address]. [place], [place] [id number] [place] [address] Care Team Providers Care Supervisor Wheel Shop Name Role Phone Non-Staff, Provider Primary Care [...] Department Care Team Description 03/27/2024 Misc Documentation [place] [address] [place] [address] Judi Arreaga MD 03/26/2024 8:03 AM COMPUTER [facility] PARA PROFESSIONAL - 03/26/2024 11:59 PM COMPUTER [facility] PARA PROFESSIONAL Hospital Encounter [facility] [address] [place] [address] Judi Arreaga MD Discharge Disposition: Home or Self Care (Routine Discharge) 03/26/2024 8:02 AM COMPUTER LAB PARA PROFESSIONAL Hospital Encounter [facility] Laboratory [address] [place] [address] Dawson Linton MD Discharge Disposition: Home or Self Care (Routine Discharge) 03/26/2024 Travel 03/19/2024 Pre-Procedure Call [facility] Interventional Radiology [address] [place] [address] Randee Alas RN Preprocedure Call (Spoke with Dr. Nguyen's office and they will fax over signed office notes from 03/16/24 appt) 03/19/2024 Telephone [facility] Interventional Radiology [address] [place] [address] Katlyn Thurman RN Preprocedure Call (Son called to see if patient can have bone marrow biopsy appt earlier in the morning. Appt moved to 0830 lab, 0900 hold time and 1000 procedure. 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 Son stated patient has been seen by Dr. Nguyen in [place] on 03/16. ) from Last 3 Months Social History Tobacco Use Types Packs/Day Years Used Date Smoking Tobacco: Never Smokeless Tobacco: Never Tobacco Cessation:Counseling Given: Not Answered Alcohol Use Standard Drinks/Week Comments Not Currently 0 (1 standard drink = 0.6 oz pur e alcohol) Comments Unknown Sex and Gender Information Value Date Recorded Sex Assigned at Female 03/26/2024 8:00 AM COMPUT[facility]A PROFESSIONAL Legal Sex Female 11:03 PM [facility] PROFESSION[facility] Gender Identity Not on file Sexual Orientation Not on file Last Filed Vital Signs Vital Sign Reading Time Taken Comments Blood Pressure 137/48 03/26/2024 1:05 PM [facility] PROFESSIONAL Pulse 65 03/26/2024 1:05 PM [facility] PROFESSIONAL Temperature 35.7 ??C (96.3 ??F) 12/26/2023 9:21 AM CD T Respiratory Rate 24 03/26/2024 1:05 PM [facility] PROFESSIONAL Oxygen Saturation 94% 03/26/2024 1:18 PM COM[facility] PARA PROFESSIONAL Inhaled Oxygen Concentration - - Weight 68 kg (150 lb) 03/26/2024 9:21 AM COMPUT[facility] PARA PROFESSIONAL Height 149.9 cm (4' 11 ) 03/26/2024 9:21 AM COMPUT[facility] PARA PROFESSIONAL Body Mass Index 30.3 03/26/2024 9:21 AM COMPUT[facility] PARA PROFESSIONAL Plan of Treatment Health Maintenance Due Date [...] ASPIR+BX BONE MARROW Routine 03/26/2024 12:15 PM COMPUT[facility]A PROFESSIONAL Lymphoma, small lymphocytic ([facility] HHS/HCC) CREATININE WHOLE BLOOD Routine 03/26/2024 12:15 PM [facility] PROFESSIONAL CHROMOSOME ANALYSIS HEMATOLOGIC MALIGNANCY Routine 03/26/2024 11:55 AM COMPUTER [facility] PARA PROFESSIONAL XR CHEST PA OR AP 1V STAT 03/26/2024 10:47 AM COMPUTER [facility] PARA PROFESSIONAL Lymphoma, small lymphocytic (CMS/HCC HHS/HCC) TYPE & SCREEN STAT 03/26/2024 9:58 AM COM[facility] PARA PROFESSIONAL Lymphoma, small lymphocytic (CMS/HCC HHS/HCC) CBC W/DIFF AUTOMATED Routine 03/26/2024 8:28 AM COMPUTER [facility] PARA PROFESSIONAL Lymphoma, small lymphocytic (CMS/HCC HHS/HCC) PROTHROMBIN TIME, VENOUS Routine 03/26/2024 8:28 AM COMPUTER [facility] PARA PROFESSIONAL Lymphoma, small lymphocytic (CMS/HCC HHS/HCC) from Last 3 Months Results * CT GD ASPIR+BX BONE MARROW (03/26/2024 12:15 PM COMPUTER [facility] PARA PROFESSIONAL) Anatomical Region Laterality Modality Bone Computed Tomogra phy, Radiographic Imaging 03/26/2024 4:31 PM [facility] PROFESSIONAL Impressions 03/26/2024 5:05 PM COM[facility] PARA PROFESSIONAL IMPRESSION: CT-guided percutaneous bone marrow biopsy, ??as described. The attending radiologist, Dr. Webber, was in the department for all critical portions of the procedure, has reviewed the images, and agrees with the content of this report. Dictated By: MONA Eric on 03/26/2024 4:31 PM Ordered By: JUDI ARREAGA Interpreted By: MONA Eric, 03/26/2024 4:31 PM Narrative 03/26/2024 5:05 PM COMPUT[facility] PARA PROFESSIONAL [address] [address] PROCEDURE: CT-guided bone marrow aspiration and biopsy DATE OF PROCEDURE: 03/26/2024 11:45 AM INDICATION: History of CLL. Primary provider: Mik Kim PA-C Supervising provider: Jamshid Webber M.D. Conscious sedation: Administered and monitored by a qualified interventional radiology nurse under supervision of the interventional physician photographer's assistant. There was continuous monitoring of vital signs including pulse oximetry, end-tidal CO2, and EKG. Total intraservice or gakg-hc-esac sedation time: 5 minutes. TECHNIQUE AND FINDINGS: Informed written consent was obtained. The patient was then brought to the CT scanner suite, placed in the prone position, and [place] protocol was observed to verify correct patient, [...] The needle was then connected to an [employer] motorized device to penetrate the cortex. At [...] Procedure Note Jamshid Webber MD - 03/26/[address] [address] PROCEDURE: CT-guided bone marrow aspiration and biopsy DATE OF PROCEDURE: 03/26/2024 11:45 AM INDICATION: History of CLL. Primary provider: Mik Kim PA-C Supervising provider: Jamshid Webber M.D. Conscious sedation: Administered and monitored by a qualifiedinterventional radiology nurse under supervision of the interventionalphysician photographer's assistant. There was continuous monitoring of vital signsincluding pulse oximetry, end-tidal CO2, and EKG. Total intraservice kvaqcf-le-stfm sedation time: 5 minutes. TECHNIQUE AND FINDINGS: Informed written consent was obtained. The patient was then brought to theCT scanner suite, placed in the prone position, and [place] protocol wasobserved to verify correct patient, site, [...] Interpreted By: MONA Eric, 03/26/2024 4:31 PM us Judi Arreaga MD CT Final Result * (ABNORMAL) CREATININE WHOLE BLOOD (03/26/2024 12:15 PM COMPUT[facility] PARA PROFESSIONAL) CREATININE WHOLE BLOOD 0.9 0.6 - 1.3 mg/dL 03/26/2024 12:24 PM COMPUTER LAB PARA PROFESSIONAL [facility] GFR ESTIMATE 65(L) >90 ML/MIN/1. 73 M2 03/26/2024 12:24 PM COMPUTER LAB PARA PROFESSIONAL [facility] GFR NOTES GFR REFERENCE S: 03/26/2024 12:24 PM COMPUTER LAB PARA PROFESSIONAL [facility] Comment: THE ESTIMATED GFR [...] TEST WAS PERFORMED: 1215 03/26/2024 12:24 PM COMPUTER [facility] PARA PROFESSIONAL [facility] 03/26/2024 12:1 5 PM COMPUT[facility] PARA PROFESSIONAL us Dawson Linton MD LABORATORY Final Result [facility] [address] [place] [address], [phone] * CHROMOSOME ANALYSIS HEMATOLOGIC MALIGNANCY (03/26/2024 11:55 AM COMPUTER LAB PARA PROFESSIONAL) SPECIMEN SOURCE BONE MARROW NA AHEP 03/26/2024 3:11 PM COMPUTER LAB PARA PROFESSIONAL [facility] CLINICAL INDICATION LYMPHOMA 03/26/2024 3:11 PM COMPUT[facility] PARA PROFESSIONAL [facility] PRIOR THERAPY/TRANSPLANT UNK 03/26/2024 3:11 PM COM[facility] PAR[facility] PROFESSIONAL [facility] PHYSICIAN PHONE 217 3:11 PM COMPUT[facility] PAR[facility] PROFESSIONAL [facility] Comment: [phone] CLIENT PHONE 217 03/26/2024 3:11 PM COMPUTER [facility] PARA PROFESSIONAL [facility] Comment: [phone] CHROMOSOME BLOOD REPORT 04/01/19 2:52 PM COMPUTER LAB PARA PROFESSIONAL [employer] KRISTEN VELAZQUEZ Comment: Order ID: ? 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 Trisomy 12 is a recurrent abnormality in chronic/small lymphocytic leukemia (CLL/SLL). In CLL/SLL, trisomy 12 is often associated with atypical immunophenotype and lymphocyte morphology. Please expect the results of any other concurrent study in a separate report. Culture Type: 48 hour unstimulated and DSP stimulated cultures. RECOMMENDATIONS: Correlation with other clinical and laboratory findings is recommended. Periodic monitoring may be useful in assessing remission/relapse status. NOMENCLATURE: 47,XX,+12[14]/46,XX[6] ASSAY INFORMATION: Method: ? G-Band (Digital Analysis: BECC/JEDI MIND) Cells Counted: ?20 Band Level: ? 400 Cells Analyzed: ? 20 Cells Karyotyped: ? 4 Small clonal populations and subtle chromosome abnormalities may not be identified. Irish Brannon, Ph.D., [facility], Supervisor [employer], Cytogenetics and Genomics, Electronic Signature: ? 04/01/2024 3:08 PM For more information on this test, go to [email or web address].Socialite/faq/Ca-chromosome Test Performed by [email or web address], [employer] [facility], [address] [place] [address] Mike Santana M.D., Ph.D., Director of Laboratories , [facility] [id number] 03/26/2024 11:5 5 AM COMPUT[facility] PARA PROFESSIONAL Judi Arreaga MD LABORATORY Final Result [facility] [address] [address] [place] [address], [place] [phone] [facility] [address] [place] [address], [place] [phone] [phone] * XR CHEST PA OR AP 1V (03/26/2024 10:47 AM COMPUTER [facility] PARA PROFESSIONAL) Anatomical Region Laterality Modality Chest Radiographic Fidelia ging 03/26/2024 11:0 4 AM COM[facility] PARA PROFESSIONAL Impressions 03/26/2024 11:14 AM COM[facility] PARA PROFESSIONAL IMPRESSION: Cardiomegaly with probable pulmonary congestion/mild interstitial CHF.Patchy opacity in the left midlung laterally which could represent pneumonia. Recommend correlation with any recent outside films if possible. Ordered By: JAMSHID WEBBER Interpreted By: Jamshid Webber MD, 03/26/2024 11:04 AM Narrative 03/26/2024 11:14 AM COM[facility] PARA PROFESSIONAL [address] [address] EXAM DESCRIPTION: Chest 1 view EXAM TIME : 03/26/2024 10:44 AM INDICATION: Shortness of breath. History of CLL. Patient apparently has history of ELIER. COMPARISON FILM : CTA chest 08/23/2016. TECHNIQUE: ??Chest- 1 - view, 1 - images FINDINGS: Upright AP film obtained. Interval removal of previously present Boqjir-t-Czvo. ??Mild cardiomegaly. Calcified aortic knob. Central pulmonary congestion with interstitial changes suggestive of CHF. In addition there is patchy groundglass opacity in the left midlung laterally which could represent pneumonia. Lungs questionable very minimal blunting left costophrenic angle, no significant size effusions. No pneumothorax. ??No acute bony abnormality. Procedure Note Jamshid Webber MD - 03/26/2024 [place] [id number] EXAM DESCRIPTION: Chest 1 view EXAM TIME : 03/26/2024 10:44 AM INDICATION: Shortness of breath. History of CLL. Patient apparently hashistory of ELIER. COMPARISON FILM : CTA chest 08/23/2016. TECHNIQUE: Chest- 1 - view, 1 - images FINDINGS: Upright AP film obtained. Interval removal of previously zxlnktgTaegnm-x-Eiys. Mild cardiomegaly. Calcified aortic knob. Centralpulmonary congestion [...] By: Jamshid Webber MD, 03/26/2024 11:04 AM Jamshid Webber MD GENERAL IMAGING Final Resu lt * TYPE & SCREEN (03/26/2024 9:58 AM COMPUTER LAB PARA PROFESSIONAL) UNITS ORDERED 1 03/26/2024 10:20 AM COMPUTER LAB PARA PROFESSIONAL [facility] ABO/RH A POSITIVE 03/26/2024 10:54 AM COMPUTER LAB PARA PROFESSIONAL [facility] ANTIBODY SCREEN NEGATIVE 03/26/2024 10:54 AM COM[facility] PARA PROFESSIONAL [facility] SAMPLE EXPIRATION 03/29/2024,2 359 03/26/2024 10:09 AM COMPUTER LAB PARA PROFESSIONAL [facility] 03/26/2024 9:58 AM COM[facility]ER [facility] PARA PROFESSIONAL Mik Kim PA-C BLOOD BANK TEST ORDERABLES Final Result [facility] [address] [place] [address], [phone] * (ABNORMAL) PROTIME/INR, VENOUS (PROTHROMBIN TIME) (03/26/2024 8:28 AM COMPUTER LAB PARA PROFESSIONAL) Pathologist [facility] PROTIME 14.3(H) 9.4 - 12.5 SEC 03/26/2024 9:06 AM [facility] INR 1.2(H) 0.8 - 1.1 03/26/2024 9:06 AM [facility] 03/26/2024 8:28 AM COMPUTER LAB PARA PROFESSIONAL Dawson Linton MD LABORATORY Final Result Performing Organization Address City/State/[facility] Co de Phone Number [facility] [address] [place] [address], [phone] * (ABNORMAL) CBC W/DIFF AUTOMATED (03/26/2024 8:28 AM COMPUTER LAB PARA PROFESSIONAL) [facility] WBC 6.16 4.00 - 10.80 x10'3/uL 03/26/2024 9:26 AM [facility] RBC 2.39(L) 4.10 - 5.40 x10'6/uL 03/26/2024 9:26 AM [facility] HGB 6.7(LL) 12.0 - 16.0 G/DL 03/26/2024 9:26 AM [facility] Comment: This result has been called to [id number] IN RADIOLOGY by [id number] on 03/26/2024 09:24:23, and has been read back. HCT 21.8(L) 36.0 - 47.0 % 03/26/2024 9:26 AM [facility] MCV 91.2 78.0 - 100.0 FL 03/26/2024 9:26 AM [facility] MCH 28.0 27.0 - 31.0 PG 03/26/2024 9:26 AM [facility] MCHC 30.7(L) 33.0 - 36.0 G/DL 03/26/2024 9:26 AM [facility] RDW 17.1(H) 11.5 - 14.5 % 03/26/2024 9:26 AM [facility] PLT 48(L) 150 - 350 x10'3/uL 03/26/2024 9:26 AM [facility] MPV 10.8(H) 7.4 - 10.4 FL 03/26/2024 9:26 AM [facility] DIFFERENTIAL TYPE MANUAL DIFFERENTIAL 03/26/2024 9:29 AM [facility] NRBC % 0.0 % 03/26/2024 9:29 AM [facility] SEG NEUTROPHILS 70 % 9:29 AM [facility] LYMPHOCYTES 22 % 03/26/2024 9:29 AM [facility] MONOCYTES 4 % 03/26/2024 9:29 AM [facility] EOSINOPHILS 3 % 03/26/2024 9:29 AM [facility] BASOPHILS 1 % 03/26/2024 9:29 AM [facility] ABS. NEUTROPHILS 4.31 1.60 - 8.30 x10'3/uL 03/26/2024 9:29 AM [facility] ABS. LYMPHOCYTES 1.36 0.80 - 4.70 x10'3/uL 03/26/2024 9:29 AM [facility] ABS. MONOCYTES 0.25 0.00 - 1.50 x10'3/uL 03/26/2024 9:29 AM [facility] ABS. EOSINOPHILS 0.18 0.00 - 0.40 x10'3/uL 03/26/2024 9:29 AM [facility] ABS. BASOPHILS 0.06 0.00 - 0.20 x10'3/uL 03/26/2024 9:29 AM [facility] ABS. NUCLEATED RBC'S 0.00 0.00 - 0.01 x10'3/uL 03/26/2024 9:29 AM COMPUTER LAB PARA PROFESSIONAL [facility] RBC MORPHOLOGY SLIDE REVIEWED 2024 9:29 AM COM[facility] PAR[facility] PROFESSIONAL [facility] ANISO SLIGHT 03/26/2024 9:29 AM [facility] PAR[facility] PROFESSIONAL [facility] POIKLO SLIGHT 03/26/2024 9:29 AM COM[facility] PAR[facility] PROFESSIONAL [facility] HYPOCHROMASIA SLIGHT 03/26/2024 9:29 AM [facility] PAR[facility] PROFESSIONAL [facility] OVALOCYTES PRESENT 03/26/2024 9:29 AM [facility] PROFESSIONAL [facility] TEAR DROP PRESENT 03/26/2024 9:29 AM [facility] PAR[facility] PROFESSIONAL [facility] PLT EST. DECREASED 03/26/2024 9:29 AM COM[facility] PAR[facility] PROFESSIONAL [facility] 03/26/2024 8:28 AM COM[facility] PAR[facility] PROFESSIONAL Dawson Linton MD LABORATORY Final Result [facility] [address] [place] [address], [phone] from Last 3 Months Insurance [employer] MEDICARE Care Teams Supervisor Wheel Shop Relationship Specialty Start Date End Date Non-Staff, Provider PCP - General UNKNOWN PHYSICIAN SPECIALTY 12/25/23
--- NOTE | 2024-04-01 15:45 | ED_ITS ---
HPI - Head Injury General Stated complaint: fall; head injury Time Seen by Provider: 04/01/24 15:23 Source: patient and family Mode of arrival: wheelchair Limitations: no limitations History of Present Illness HPI Narrative: this is a 78-year-old female that had a fall earlier this afternoon apparently tripped and fell backwards hitting the occipital region of her scalp with no loss of consciousness, no neurological deficits no blurry vision no headache there was some bleeding the area was showed hematoma with no gaping laceration. No other injuries noted. MD Complaint: head injury Onset (ago): hour(s) Place: outdoors Loss of Consciousness: no Location of injury: occipital Severity: mild Radiation: none Other Injuries: none Associated symptoms: denies other symptoms Related Data Home Medications ?Medication ?Instructions ?Recorded ?Confirmed ?Last Taken ?Type allopurinol 100 mg tablet 100 mg BID 04/05/20 01/23/24 04/12/20 History carvedilol 25 mg tablet 25 mg BID 04/05/20 01/23/24 04/12/20 History hydrochlorothiazide 25 mg tablet 25 mg QAM 04/05/20 01/23/24 04/12/20 History insulin NPH isoph U-100 human 100 See Rx Instructions .Route .COMPLEX 04/05/20 01/23/24 04/12/20 History unit/mL subcutaneous suspension (Novolin N NPH U-100 Insulin isophane) montelukast 10 mg tablet 10 mg QAM 04/05/20 01/23/24 04/12/20 History omeprazole 40 mg capsule,delayed 40 mg QAM 04/05/20 01/23/24 04/12/20 History release simvastatin 20 mg tablet 20 mg PO HS 04/05/20 01/23/24 04/11/20 History Allergies Allergy/AdvReac Type Severity Reaction Status Date / Time No Known Allergies Allergy Verified 04/01/24 15:45 Review of Systems Review of Systems: All systems reviewed & are unremarkable except as noted in HPI and below PMFSH Past Medical History Medical History Bronchitis Cellulitis of left hand Social History Social History Smoking status: Never smoker Second hand tobacco smoke exposure: No Alcohol intake: never Substance use: never Substance use type: does not use Living arrangements: alone Spiritual care concerns: No Exam Const: General: healthy appearing, no acute distress and alert Nutritional Appearance: well nourished Orientation/consciousness: patient oriented x3 Limitations: no limitations HENMT: Head: normal to inspection Eyes: Conjunctivae: conjunctivae normal Pupils: Equal, round and reactive pupils present EOM: EOMs intact bilaterally Neck: Neck: normal visual inspection, no lymphadenopathy and no meningeal signs Chest: Chest palpation & inspection: normal inspection of the chest Resp: Effort & Inspection: normal respiratory effort Auscultation: clear to auscultation bilaterally Cardio: Rate: regular rate Rhythm: regular rhythm GI: GI Palp: Yes Soft to palpation Auscultation: normal bowel sounds : General: Yes bladder normal to palpation Urinary Catheter: Urinary Catheter: patent and draining Skin: Wounds: wounds noted Other: Scalp hematoma otherwise no gaping laceration. Neuro: General: patient oriented x3, moves all extremities, no meningeal signs and no focal motor deficits Cranial nerves: Yes CN's II-XII intact bilaterally Speech: normal speech Extrem: General: normal to inspection Course Course Emergency Course: Area was looked at and showed no gaping laceration, there was a hematoma and the area was cleaned, CT scan performed showed no acute intracranial abnormalities. Patient is up-to-date with her tetanus. Vital Signs Vital signs: Vital Signs Temperature 36.3 C L 04/01/24 15:15 Pulse Rate 70 04/01/24 15:15 Respiratory Rate 16 04/01/24 15:15 Blood Pressure 131/68 04/01/24 15:15 Pulse Oximetry 98 04/01/24 15:15 Oxygen Delivery Room Air 04/01/24 15:15 Temperature 36.3 C L 04/01/24 15:15 Pulse Rate 70 04/01/24 15:15 Respiratory Rate 16 04/01/24 15:15 Blood Pressure 131/68 04/01/24 15:15 Pulse Oximetry 98 04/01/24 15:15 Oxygen Delivery Room Air 04/01/24 15:15 Critical Care Time Critical Care Time Critical Care Time: No Discharge Plan Discharge Clinical Impression: Hematoma Head injury Qualifiers: Encounter type: initial encounter Qualified Code(s): S09.90XA - Unspecified injury of head, initial encounter Patient Disposition: Home, Self-Care Condition: Stable Instructions: Antibiotic Form, Head Injury (ED), Hematoma (ED) Additional Instructions: advised to take Tylenol as needed for headache, follow-up primary care physician within a week for further evaluation treatment. Patient Language: Indonesian Prescriptions: No Action tramadol 50 mg tablet 50 mg PO Q6H PRN (Reason: pain) Qty: 14 0RF carvedilol 25 mg tablet 25 mg BID allopurinol 100 mg tablet 100 mg BID omeprazole 40 mg capsule,delayed release(DR/EC) 40 mg QAM simvastatin 20 mg Tablet 20 mg PO HS Novolin N NPH U-100 Insulin 100 unit/mL suspension See Rx Instructions .ROUTE .COMPLEX Rx Instructions: 100 UNITS AND 80 UNITS AT NOC montelukast 10 mg tablet 10 mg QAM hydrochlorothiazide 25 mg tablet 25 mg QAM Follow-up/Referrals: Jonathon Nguyen MD [Primary Care Provider] - Time of Disposition: 15:50
--- OUTSIDE RECORDS SUMMARY | 2024-04-01 16:05 | XMS_ITS | Encounter Summary ---
Author Organization [facility] Address [address] [place] [address]. [place] [address] [place] [address] Care Team Providers Care Tester Operator Name Role Phone Non-Staff, Provider Primary Care Provider Luis troncoso Encounter Details Date Type Department Care Team (Late st Contact Info) Description 03/27/2024 [facility] Documentation [place] [address] [place] [address] Pema Kinsey MD [address] [place] [address] Social History Tobacco Use Types Packs/Day Years Used Date Smoking Tobacco: Never Smokeless Tobacco: Never Alcohol Use Standard Drinks/Week Comments Not Currently 0 (1 standard drink = 0.6 oz pur e alcohol) Comments Unknown Sex and Gender Information Value Date Recorded Sex Assigned at Female 03/26/2024 8:00 AM [employer] Legal Sex Female 11:03 PM [employer] Gender Identity Not on file Sexual Orientation [...] on filedocumented in this encounter Care Teams Tester Operator Relationship Specialty Start Date End Date Non-Staff, Provider PCP - General UNKNOWN PHYSICIAN SPECIALTY 12/25/23 documented as of this encounter
--- OUTSIDE RECORDS SUMMARY | 2024-04-01 16:06 | XMS_ITS | Clinical Summary ---
Author Organization [facility] Address [address] [place] [address]. [place], [place] [id number] [place] [address] Care Team Providers Care R D Internship Name Role Phone Non-Staff, Provider Primary Care [...] Department Care Team Description 03/27/2024 Misc Documentation [place] [address] [place] [address] Judi Arreaga MD 03/26/2024 8:03 AM HOSPICE AIDE - 03/26/2024 11:59 PM HOSPICE AIDE Hospital Encounter [facility] [address] [place] [address] Judi Arreaga MD Discharge Disposition: Home or Self Care (Routine Discharge) 03/26/2024 8:02 AM HOSPICE AIDE Hospital Encounter [facility] Laboratory [address] [place] [address] Dawson Linton MD Discharge Disposition: Home or Self Care (Routine Discharge) 03/26/2024 Travel 03/19/2024 Pre-Procedure Call [facility] Interventional Radiology [address] [place] [address] Randee Alas RN Preprocedure Call (Spoke with Dr. Nguyen's office and they will fax over signed office notes from 03/16/24 appt) 03/19/2024 Telephone [facility] Interventional Radiology [address] [place] [address] Katlyn Thurman RN Preprocedure Call (Son called to see if patient can have bone marrow biopsy appt earlier in the morning. Appt moved to 0830 lab, 0900 hold time and 1000 procedure. Son aware of changed time, npo at midnight and will need escort car driver for the way home. Son stated patient has been seen by Dr. Nguyen in [place] on 03/16. ) from Last 3 Months Social History Tobacco Use Types Packs/Day Years Used Date Smoking Tobacco: Never Smokeless Tobacco: Never Tobacco Cessation:Counseling Given: Not Answered Alcohol Use Standard Drinks/Week Comments Not Currently 0 (1 standard drink = 0.6 oz pur e alcohol) Comments Unknown Sex and Gender Information Value Date Recorded Sex Assigned at Female 03/26/2024 8:00 AM HOSPICE AIDE Legal Sex Female 11:03 PM HOSPICE AIDE Gender Identity Not on file Sexual Orientation Not on file Last Filed Vital Signs Vital Sign Reading Time Taken Comments Blood Pressure 137/48 03/26/2024 1:05 PM HOSPICE AIDE Pulse 65 03/26/2024 1:05 PM HOSPICE AIDE Temperature 35.7 ??C (96.3 ??F) 12/26/2023 9:21 AM CD T Respiratory Rate 24 03/26/2024 1:05 PM HOSPICE AIDE Oxygen Saturation 94% 03/26/2024 1:18 PM HOSPICE AIDE Inhaled Oxygen Concentration - - Weight 68 kg (150 lb) 03/26/2024 9:21 AM HOSPICE AIDE Height 149.9 cm (4' 11 ) 03/26/2024 9:21 AM HOSPICE AIDE Body Mass Index 30.3 03/26/2024 9:21 AM HOSPICE AIDE Plan of Treatment Health Maintenance Due Date [...] ASPIR+BX BONE MARROW Routine 03/26/2024 12:15 PM HOSPICE AIDE Lymphoma, small lymphocytic ([facility] HHS/HCC) CREATININE WHOLE BLOOD Routine 03/26/2024 12:15 PM HOSPICE AIDE CHROMOSOME ANALYSIS HEMATOLOGIC MALIGNANCY Routine 03/26/2024 11:55 AM HOSPICE AIDE XR CHEST PA OR AP 1V STAT 03/26/2024 10:47 AM HOSPICE AIDE Lymphoma, small lymphocytic (CMS/HCC HHS/HCC) TYPE & SCREEN STAT 03/26/2024 9:58 AM HOSPICE AIDE Lymphoma, small lymphocytic (CMS/HCC HHS/HCC) CBC W/DIFF AUTOMATED Routine 03/26/2024 8:28 AM HOSPICE AIDE Lymphoma, small lymphocytic (CMS/HCC HHS/HCC) PROTHROMBIN TIME, VENOUS Routine 03/26/2024 8:28 AM HOSPICE AIDE Lymphoma, small lymphocytic (CMS/HCC HHS/HCC) from Last 3 Months Results * CT GD ASPIR+BX BONE MARROW (03/26/2024 12:15 PM HOSPICE AIDE) Anatomical Region Laterality Modality Bone Computed Tomogra phy, Radiographic Imaging 03/26/2024 4:31 PM HOSPICE AIDE Impressions 03/26/2024 5:05 PM HOSPICE AIDE IMPRESSION: CT-guided percutaneous bone marrow biopsy, ??as described. The attending radiologist, Dr. Webber, was in the department for all critical portions of the procedure, has reviewed the images, and agrees with the content of this report. Dictated By: MONA Eric on 03/26/2024 4:31 PM Ordered By: JUDI ARREAGA Interpreted By: MONA Eric, 03/26/2024 4:31 PM Narrative 03/26/2024 5:05 PM HOSPICE AIDE [address] [address] PROCEDURE: CT-guided bone marrow aspiration and biopsy DATE OF PROCEDURE: 03/26/2024 11:45 AM INDICATION: History of CLL. Primary provider: Mik Kim PA-C Supervising provider: Jamshid Webber M.D. Conscious sedation: Administered and monitored by a qualified interventional radiology nurse under supervision of the interventional physician topographical field assistant. There was continuous monitoring of vital signs including pulse oximetry, end-tidal CO2, and EKG. Total intraservice or tgro-iy-hndm sedation time: 5 minutes. TECHNIQUE AND FINDINGS: Informed written consent was obtained. The patient was then brought to the CT scanner suite, placed in the prone position, and [place] protocol was observed to verify correct patient, [...] The needle was then connected to an Vyyo motorized device to penetrate the cortex. At [...] Procedure Note Jamshid Webber MD - 03/26/[address] [address] PROCEDURE: CT-guided bone marrow aspiration and biopsy DATE OF PROCEDURE: 03/26/2024 11:45 AM INDICATION: History of CLL. Primary provider: Mik Kim PA-C Supervising provider: Jamshid Webber M.D. Conscious sedation: Administered and monitored by a qualifiedinterventional radiology nurse under supervision of the interventionalphysician topographical field assistant. There was continuous monitoring of vital signsincluding pulse oximetry, end-tidal CO2, and EKG. Total intraservice vmrjht-si-ubws sedation time: 5 minutes. TECHNIQUE AND FINDINGS: Informed written consent was obtained. The patient was then brought to theCT scanner suite, placed in the prone position, and [place] protocol wasobserved to verify correct patient, site, [...] (ABNORMAL) CREATININE WHOLE BLOOD (03/26/2024 12:15 PM HOSPICE AIDE) CREATININE WHOLE BLOOD 0.9 0.6 - 1.3 mg/dL 03/26/2024 12:24 PM HOSPICE AIDE [facility] GFR ESTIMATE 65(L) >90 ML/MIN/1. 73 M2 03/26/2024 12:24 PM HOSPICE AIDE [facility] GFR NOTES GFR REFERENCE S: 03/26/2024 12:24 PM HOSPICE AIDE [facility] Comment: THE ESTIMATED GFR IS CALCULATED [...] TEST WAS PERFORMED: 1215 03/26/2024 12:24 PM HOSPICE AIDE [facility] 03/26/2024 12:1 5 PM HOSPICE AIDE us Dawson Linton MD LABORATORY Final Result [facility] [address] [place] [address], [id number] * CHROMOSOME ANALYSIS HEMATOLOGIC MALIGNANCY (03/26/2024 11:55 AM HOSPICE AIDE) SPECIMEN SOURCE BONE MARROW NA AHEP 03/26/2024 3:11 PM HOSPICE AIDE [facility] CLINICAL INDICATION LYMPHOMA 03/26/2024 3:11 PM HOSPICE AIDE [facility] PRIOR THERAPY/TRANSPLANT UNK 03/26/2024 3:11 PM HOSPICE AIDE [facility] PHYSICIAN PHONE [phone] 3:11 PM HOSPICE AIDE [facility] Comment: [phone] CLIENT PHONE [phone] 03/26/2024 3:11 PM HOSPICE AIDE [facility] Comment: [phone] CHROMOSOME BLOOD REPORT 04/01/19 2:52 PM HOSPICE AIDE [facility] KRISTEN VELAZQUEZ Comment: Order ID: ? [id number] Specimen Type: ?Bone Marrow Clinical Indication: ?Lymphoma [...] ASSAY INFORMATION: Method: ? G-Band (Digital Analysis: [place] One/Pulmatrix) Cells Counted: ?20 Band Level: ? 400 Cells Analyzed: ? 20 Cells Karyotyped: ? 4 Small clonal populations and subtle chromosome abnormalities may not be identified. Irish Brannon, Ph.D., [facility], [place], Cytogenetics and Genomics, Electronic Signature: ? 04/01/2024 3:08 PM For more information on this test, go to [email or web address].[email or web address]/faq/Ca-chromosome Test Performed by [facility], [facility], [address] [place] [address] Mike Santana M.D., Ph.D., Director of Laboratories , [facility] [id number] 03/26/2024 11:5 5 AM HOSPICE AIDE Judi Arreaga MD LABORATORY Final Result [facility] [address] [place] [address], [place] [phone] [facility] [address] [place] [address], [place] [phone] * XR CHEST PA OR AP 1V (03/26/2024 10:47 AM HOSPICE AIDE) Anatomical Region Laterality Modality Chest Radiographic Fidelia ging 03/26/2024 11:0 4 AM HOSPICE AIDE Impressions 03/26/2024 11:14 AM HOSPICE AIDE IMPRESSION: Cardiomegaly with probable pulmonary congestion/mild interstitial CHF.Patchy opacity in the left midlung laterally which could represent pneumonia. Recommend correlation with any recent outside films if possible. Ordered By: JAMSHID WEBBER Interpreted By: Jamshid Webber MD, 03/26/2024 11:04 AM Narrative 03/26/2024 11:14 AM HOSPICE AIDE [address] [address] EXAM DESCRIPTION: Chest 1 view EXAM TIME : 03/26/2024 10:44 AM INDICATION: Shortness of breath. History of CLL. Patient apparently has history of ELIER. COMPARISON FILM : CTA chest 08/23/2016. TECHNIQUE: ??Chest- 1 - view, 1 - images FINDINGS: Upright AP film obtained. Interval removal of previously present Molrnk-o-Sukl. ??Mild cardiomegaly. Calcified aortic knob. Central pulmonary congestion with interstitial changes suggestive of CHF. In addition there is patchy groundglass opacity in the left midlung laterally which could represent pneumonia. Lungs questionable very minimal blunting left costophrenic angle, no significant size effusions. No pneumothorax. ??No acute bony abnormality. Procedure Note Jamshid Webber MD - 03/26/2024 [place] [address] EXAM DESCRIPTION: Chest 1 view EXAM TIME : 03/26/2024 10:44 AM INDICATION: Shortness of breath. History of CLL. Patient apparently hashistory of ELIER. COMPARISON FILM : CTA chest 08/23/2016. TECHNIQUE: Chest- 1 - view, 1 - images FINDINGS: Upright AP film obtained. Interval removal of previously vccggqmTlnapo-z-Mpow. Mild cardiomegaly. Calcified aortic knob. Centralpulmonary congestion [...] * TYPE & SCREEN (03/26/2024 9:58 AM HOSPICE AIDE) UNITS ORDERED 1 03/26/2024 10:20 AM HOSPICE AIDE [facility] ABO/RH A POSITIVE 03/26/2024 10:54 AM HOSPICE AIDE [facility] ANTIBODY SCREEN NEGATIVE 03/26/2024 10:54 AM HOSPICE AIDE [facility] SAMPLE EXPIRATION 03/29/2024,2 359 03/26/2024 10:09 AM HOSPICE AIDE [facility] 03/26/2024 9:58 AM HOSPICE AIDE Mik Kim PA-C BLOOD BANK TEST ORDERABLES Final Result [facility] [address] [place] [address], [id number] * (ABNORMAL) PROTIME/INR, VENOUS (PROTHROMBIN TIME) (03/26/2024 8:28 AM HOSPICE AIDE) Pathologist [facility] PROTIME 14.3(H) 9.4 - 12.5 SEC 03/26/2024 9:06 AM [facility] INR 1.2(H) 0.8 - 1.1 03/26/2024 9:06 AM [facility] 03/26/2024 8:28 AM HOSPICE AIDE Dawson Linton MD LABORATORY Final Result Performing Organization Address City/State/[facility] Co de Phone Number [facility] [address] [place] [address], [id number] * (ABNORMAL) CBC W/DIFF AUTOMATED (03/26/2024 8:28 AM HOSPICE AIDE) [facility] WBC 6.16 4.00 - 10.80 x10'3/uL 03/26/2024 9:26 AM [facility] RBC 2.39(L) 4.10 - 5.40 x10'6/uL 03/26/2024 9:26 AM [facility] HGB 6.7(LL) 12.0 - 16.0 G/DL 03/26/2024 9:26 AM [facility] Comment: This result has been called to [id number] IN RADIOLOGY by [id number] on 03/26/2024 09:24:23, and has been read back. HCT 21.8(L) 36.0 - 47.0 % 03/26/2024 9:26 AM [facility] MCV 91.2 78.0 - 100.0 FL 03/26/2024 9:26 AM [facility] MCH 28.0 27.0 - 31.0 PG 03/26/2024 9:26 AM [facility] MCHC 30.7(L) 33.0 - 36.0 G/DL 03/26/2024 9:26 AM [facility] RDW 17.1(H) 11.5 - 14.5 % 03/26/2024 9:26 AM [facility] PLT 48(L) 150 - 350 x10'3/uL 03/26/2024 9:26 AM [facility] MPV 10.8(H) 7.4 - 10.4 FL 03/26/2024 9:26 AM [facility] DIFFERENTIAL TYPE MANUAL DIFFERENTIAL 03/26/2024 9:29 AM [facility] NRBC % 0.0 % 03/26/2024 9:29 AM [facility] SEG NEUTROPHILS 70 % 9:29 AM [facility] LYMPHOCYTES 22 % 03/26/2024 9:29 AM [facility] MONOCYTES 4 % 03/26/2024 9:29 AM [facility] EOSINOPHILS 3 % 03/26/2024 9:29 AM [facility] BASOPHILS 1 % 03/26/2024 9:29 AM [facility] ABS. NEUTROPHILS 4.31 1.60 - 8.30 x10'3/uL 03/26/2024 9:29 AM [facility] ABS. LYMPHOCYTES 1.36 0.80 - 4.70 x10'3/uL 03/26/2024 9:29 AM [facility] ABS. MONOCYTES 0.25 0.00 - 1.50 x10'3/uL 03/26/2024 9:29 AM [facility] ABS. EOSINOPHILS 0.18 0.00 - 0.40 x10'3/uL 03/26/2024 9:29 AM [facility] ABS. BASOPHILS 0.06 0.00 - 0.20 x10'3/uL 03/26/2024 9:29 AM [facility] ABS. NUCLEATED RBC'S 0.00 0.00 - 0.01 x10'3/uL 03/26/2024 9:29 AM HOSPICE AIDE [facility] RBC MORPHOLOGY SLIDE REVIEWED 2024 9:29 AM HOSPICE AIDE [facility] ANISO SLIGHT 03/26/2024 9:29 AM HOSPICE AIDE [facility] POIKLO SLIGHT 03/26/2024 9:29 AM HOSPICE AIDE [facility] HYPOCHROMASIA SLIGHT 03/26/2024 9:29 AM HOSPICE AIDE [facility] OVALOCYTES PRESENT 03/26/2024 9:29 AM HOSPICE AIDE [facility] TEAR DROP PRESENT 03/26/2024 9:29 AM HOSPICE AIDE [facility] PLT EST. DECREASED 03/26/2024 9:29 AM HOSPICE AIDE [facility] 03/26/2024 8:28 AM HOSPICE AIDE Dawson Linton MD LABORATORY Final Result [facility] [address] [place] [address], [id number] from Last 3 Months Insurance [employer] Care Teams R D Internship Relationship Specialty Start Date End Date Non-Staff, Provider PCP - General UNKNOWN PHYSICIAN SPECIALTY 12/25/23
--- OUTSIDE RECORDS SUMMARY | 2024-04-01 16:06 | XMS_ITS | Encounter Summary ---
Author Organization [facility] Address [address] [place] [address]. [place], [place] [address] [place] [address] Care Team Providers Care Transformer Molder Name Role Phone Non-Staff, Provider Primary Care Provider Luis troncoso Reason for Visit * Reason Onset Date Comments Preprocedure Call 03/19/[address] Nguyen's office and they will fax over signed office notes from 03/16/24 appt Encounter Details Date Type Department Care Team (Latest Contact Info) Description 03/19/2024 Pre-Procedure Call [facility] Interventional Radiology [address] [place] [address] Randee Alas RN Preprocedure Call [...] Sex Assigned at Female 03/26/2024 8:00 AM IT NETWORK ADMINISTRATOR Legal Sex Female 11:03 PM IT NETWORK ADMINISTRATOR Gender Identity Not on file Sexual Orientation [...] on filedocumented in this encounter Care Teams Transformer Molder Relationship Specialty Start Date End Date Non-Staff, Provider PCP - General UNKNOWN PHYSICIAN SPECIALTY 12/25/23 documented as of this encounter
== END 2024-04-01 16:39 | disposition home or self-care (01) ==
LOC: CHSED 16:02
PROVIDERS: Emergency Provider Emergency Medicine; PCP Internal Medicine
DX: S09.90XA Unspecified injury of head, initial encounter (principal); S00.03XA Contusion of scalp, initial encounter; W01.0XXA Fall on same level from slipping, tripping and stumbling without subsequent striking against object, initial encounter; Z79.4 Long term (current) use of insulin
CPT/HCPCS: 70450; 99284

== ENCOUNTER 2024-04-09 13:47 | Outpatient (RCR) | payer MEDICARE, SELFPAY ==
--- OUTSIDE RECORDS SUMMARY | 2024-04-08 07:02 | XMS_ITS | Encounter Summary ---
Author Organization [facility] Address [facility] [place] [address] Care Team Providers Care Manufacturing Project Manager Name Role Phone Non-Staff, Provider Primary Care Provider Luis troncoso Reason for Visit * Reason Onset Date Comments Preprocedure Call 03/19/[address] Nguyen's office and they will fax over signed office notes from 03/16/24 appt Encounter Details Date Type Department Care Team (Latest Contact Info) Description 03/19/2024 Pre-Procedure Call [facility] Interventional Radiology [address] [place] [address] Randee Alas RN Preprocedure Call (Spoke with [...] Sex Assigned at Female 03/26/2024 8:00 AM ADA ACCOMMODATION CONSULTANT Legal Sex Female 11:03 PM ADA ACCOMMODATION CONSULTANT Gender Identity Not on file Sexual Orientation [...] Author Status No 12/26/2023 6:41 AM CDT Yoggerst, Joe L, RN Active documented as of this encounter Plan of Treatment Not on file documented as of this encounter Visit Diagnoses Not on filedocumented in this encounter Care Teams Manufacturing Project Manager Relationship Specialty Start Date End Date Non-Staff, Provider PCP - General UNKNOWN PHYSICIAN SPECIALTY 12/25/23 documented as of this encounter
--- OUTSIDE RECORDS SUMMARY | 2024-04-08 07:02 | XMS_ITS | Clinical Summary ---
Author Organization [facility] Address [address] [place] [address] Care Team Providers Care E Commerce Merchant Name Role Phone Non-Staff, Provider Primary Care [...] Date Type Department Care Team Description 03/27/2024 [facility] [place] [address] [place] [address] Judi Arreaga MD 03/26/2024 8:03 AM SKOOG OPERATOR - 03/26/2024 11:59 PM SKOOG OPERATOR Hospital Encounter [facility] [address] [place] [address] Judi Arreaga MD Discharge Disposition: Home or Self Care (Routine Discharge) 03/26/2024 8:02 AM SKOOG OPERATOR Hospital Encounter [facility] [address] [place] [address] Dawson Linton MD Discharge Disposition: Home or Self Care (Routine Discharge) 03/26/2024 Travel 03/19/2024 Pre-Procedure Call [facility] [address] [place] [address] Randee Alas RN Preprocedure Call (Spoke with Dr. Nguyen's office and they will fax over signed office notes from 03/16/24 appt) 03/19/2024 Telephone [facility] [address] [place] [address] Katlyn Thurman RN Preprocedure Call (Son called to see if patient can have bone marrow biopsy appt earlier in the morning. Appt moved to 0830 lab, 0900 hold time and 1000 procedure. Son aware of changed time, npo at midnight and will need rolloff truck driver for the way home. Son stated patient has been seen by Dr. Nguyen in [place] on 03/16. ) from Last 3 Months Social History Tobacco Use Types Packs/Day Years Used Date Smoking Tobacco: Never Smokeless Tobacco: Never Tobacco Cessation:Counseling Given: Not Answered Alcohol Use Standard Drinks/Week Comments Not Currently 0 (1 standard drink = 0.6 oz pur e alcohol) Comments Unknown Sex and Gender Information Value Date Recorded Sex Assigned at Female 03/26/2024 8:00 AM SKOOG OPERATOR Legal Sex Female 11:03 PM SKOOG OPERATOR Gender Identity Not on file Sexual Orientation Not on file Last Filed Vital Signs Vital Sign Reading Time Taken Comments Blood Pressure 137/48 03/26/2024 1:05 PM SKOOG OPERATOR Pulse 65 03/26/2024 1:05 PM SKOOG OPERATOR Temperature 35.7 C (96.3 F) 12/26/2023 9:21 AM CDT Respiratory Rate 24 03/26/2024 1:05 PM SKOOG OPERATOR Oxygen Saturation 94% 03/26/2024 1:18 PM SKOOG OPERATOR Inhaled Oxygen Concentration - - Weight 68 kg (150 lb) 03/26/2024 9:21 AM SKOOG OPERATOR Height 149.9 cm (4' 11 ) 03/26/2024 9:21 AM SKOOG OPERATOR Body Mass Index 30.3 03/26/2024 9:21 AM SKOOG OPERATOR Plan of Treatment Health Maintenance Due Date [...] Name Priority Date/Time Associated Diagnosis Comments CT CHEST+ABD+PEL W CON Routine 03/26/2024 12:20 PM SKOOG OPERATOR Lymphoma, small lymphocytic ([facility]/HCC HHS/HCC) CT GD ASPIR+BX BONE MARROW Routine 03/26/2024 12:15 PM SKOOG OPERATOR Lymphoma, small lymphocytic (CMS/HCC HHS/HCC) CREATININE WHOLE BLOOD Routine 03/26/2024 12:15 PM SKOOG OPERATOR CHROMOSOME ANALYSIS HEMATOLOGIC MALIGNANCY Routine 03/26/2024 11:55 AM SKOOG OPERATOR XR CHEST PA OR AP 1V STAT 03/26/2024 10:47 AM SKOOG OPERATOR Lymphoma, small lymphocytic (CMS/HCC HHS/HCC) TYPE & SCREEN STAT 03/26/2024 9:58 AM SKOOG OPERATOR Lymphoma, small lymphocytic (CMS/HCC HHS/HCC) CBC W/DIFF AUTOMATED Routine 03/26/2024 8:28 AM SKOOG OPERATOR Lymphoma, small lymphocytic (CMS/HCC HHS/HCC) PROTHROMBIN TIME, VENOUS Routine 03/26/2024 8:28 AM SKOOG OPERATOR Lymphoma, small lymphocytic (CMS/HCC HHS/HCC) from Last 3 Months Results * CT CHEST+ABD+PEL W CON (03/26/2024 12:20 PM SKOOG OPERATOR) Anatomical Region Laterality Modality Chest, Abdomen, Pelvis Computed Tomography 04/04/2024 9:43 AM SKOOG OPERATOR Impressions 04/04/2024 10:02 AM SKOOG OPERATOR Impression: 1. Mediastinal and hilar lymphadenopathy as described. 2. Small left and trace right pleural effusions. 3. Irregular multifocal tree-in-bud opacities are seen within both lungs, most notably within the left upper lobe. Underlying infectious or inflammatory process is not excluded. Short interval follow-up imaging to resolution is recommended. 4. A 1.2 cm nodule is seen in the right upper lobe, new from the prior CT from 2016. This is nonspecific but cannot exclude neoplasm or sequelae of infection. Attention on short-term interval follow-up imaging is recommended. Could correlate with tissue sampling if clinically desired. 5. Splenomegaly. 6. Small hiatal hernia. 7. Mildly prominent bilateral iliac chain lymph nodes, nonspecific. No retroperitoneal or inguinal lymphadenopathy is seen. 8. Diffuse skin thickening of the left breast with notable abnormal stranding throughout the left breast soft tissues and subcutaneous fat. Findings appear similar to prior CT imaging from August 2016 and may represent chronic posttreatment changes related to previous breast cancer. 9. Other chronic and nonemergent findings as above. Referred By: JUDI ARREAGA Interpreted By: Rei Gaines MD, 04/04/2024 9:43 AM Narrative 04/04/2024 10:02 AM SKOOG OPERATOR [address] [address] Examination: CT chest, abdomen and pelvis with IV contrast. Clinical Information: LYMPHOMA, SMALL LYMPHOCYTIC Comparison:CT 08/23/2016. Technique: IV contrast: 100 mL Isovue 370. Oral contrast: None. Technical comments: Standard technique. Dose reduction: This CT exam was performed using one or more of the following dose reduction techniques: Automated exposure control, adjustment of the mA and/or kV according to patient size, and/or use of iterative reconstruction technique. Findings: MEDIASTINUM Support tubes and lines: None. Base of neck/thyroid: Negative. Heart: Normal in size. No pericardial effusion. There are calcifications are present. Lymph nodes: Mediastinal and hilar lymphadenopathy identified. Notably enlarged subcarinal lymph node measuring 1.8 cm short axis. Additional large right hilar lymph node measuring approximately 2 cm short axis. VASCULATURE The thoracic aorta appears normal in caliber. The pulmonary arteries appear normal in caliber. LUNGS AND PLEURA Small left and trace right pleural effusions. Irregular multifocal tree-in-bud opacities are present within both lungs, most notably within the left upper lobe. Underlying infectious or inflammatory process is not excluded. A 1.2 cm nodule is identified in the right upper lobe (series 3 image 41), new from prior CT from 2017 and nonspecific. Subpleural reticular and consolidative opacities are also noted, nonspecific but could represent posttreatment changes related to previous breast cancer. UPPER ABDOMEN Liver and bile ducts: No focal liver lesion. Portal vein and hepatic veins are patent. No biliary dilatation. Gallbladder: Not identified and presumed surgically absent. Pancreas: Unremarkable. Spleen: The spleen is enlarged measuring 16.6 cm anterior posterior and 16.3 cm craniocaudal. RETROPERITONEUM Adrenals: Redemonstrated left adrenal nodule appearing similar to the exam from 2017 and likely represent an adenoma. The right adrenal gland appears unremarkable. Kidneys: Normal. Lymph nodes: No retroperitoneal lymphadenopathy is identified. There are mildly prominent bilateral iliac chain lymph nodes, nonspecific. No inguinal lymphadenopathy is seen. BOWEL AND PERITONEUM Bowel: Small hiatal hernia. No obstruction or inflammatory process is seen. Free air or fluid: Small free fluid is present within the pelvis, nonspecific. VASCULATURE Atherosclerotic calcifications of the abdominal aorta without aneurysm. PELVIS No abnormality. BONES/SOFT TISSUES There is diffuse skin thickening involving the left breast with notable abnormal stranding throughout the left breast soft tissues and subcutaneous fat, when compared to the right. Focal clustered calcifications are seen within the medial left breast with overlying skin retraction (series 2 image 51. Findings do appear similar to prior CT imaging from August 2016 and may represent chronic posttreatment changes related to previous breast cancer. Mild fatty atrophy of the right gluteus medius and minimus musculature. Multilevel spondylosis. No acute osseous abnormalities are identified. Procedure Note Rei Gaines MD - 04/04/2024 [facility] [address] [place], [place] [address] Examination: CT chest, abdomen and pelvis with IV contrast. Clinical Information: LYMPHOMA, SMALL LYMPHOCYTIC Comparison:CT 08/23/2016. Technique: IV contrast: 100 mL Isovue 370. Oral contrast: None. Technical comments: Standard technique. Dose reduction: This CT exam was performed using one or more of thefollowing dose reduction techniques: Automated exposure control,adjustment of the mA and/or kV according to patient size, and/or use ofiterative reconstruction technique. Findings: MEDIASTINUM Support tubes and lines: None. Base of neck/thyroid: Negative. Heart: Normal in size. No pericardial effusion. There are calcificationsare present. Lymph nodes: Mediastinal and hilar lymphadenopathy identified. Notablyenlarged subcarinal lymph node measuring 1.8 cm short axis. Additionallarge right hilar lymph node measuring approximately 2 cm short axis. VASCULATURE The thoracic aorta appears normal in caliber. The pulmonary arteriesappear normal in caliber. LUNGS AND PLEURA Small left and trace right pleural effusions. Irregular xohkexbwwxvfmk-dx-mvs opacities are present within both lungs, most notably withinthe left upper lobe. Underlying infectious or inflammatory process is notexcluded. A 1.2 cm nodule is identified in the right upper lobe (series 3image 41), new from prior CT from 2017 and nonspecific. Subpleuralreticular and consolidative opacities are also noted, nonspecific butcould represent posttreatment changes related to previous breast cancer. UPPER ABDOMEN Liver and bile ducts: No focal liver lesion. Portal vein and hepaticveins are patent. No biliary dilatation. Gallbladder: Not identified and presumed surgically absent. Pancreas: Unremarkable. Spleen: The spleen is enlarged measuring 16.6 cm anterior posterior and16.3 cm craniocaudal. RETROPERITONEUM Adrenals: Redemonstrated left adrenal nodule appearing similar to the examfrom 2017 and likely represent an adenoma. The right adrenal gland appearsunremarkable. Kidneys: Normal. Lymph nodes: No retroperitoneal lymphadenopathy is identified. There aremildly prominent bilateral iliac chain lymph nodes, nonspecific. Noinguinal lymphadenopathy is seen. BOWEL AND PERITONEUM Bowel: Small hiatal hernia. No obstruction or inflammatory process isseen. Free air or fluid: Small free fluid is present within the pelvis,nonspecific. VASCULATURE Atherosclerotic calcifications of the abdominal aorta without aneurysm. PELVIS No abnormality. BONES/SOFT TISSUES There is diffuse skin thickening involving the left breast with notableabnormal stranding throughout the left breast soft tissues andsubcutaneous fat, when compared to the right. Focal clusteredcalcifications are seen within the medial left breast with overlying skinretraction (series 2 image 51. Findings do appear similar to prior CTimaging from August 2016 and may represent chronic posttreatment changesrelated to previous breast cancer. Mild fatty atrophy of the right gluteus medius and minimus musculature.Multilevel spondylosis. No acute osseous abnormalities are identified. Impression: 1. Mediastinal and hilar lymphadenopathy as described. 2. Small left and trace right pleural effusions. 3. Irregular multifocal tree-in-bud opacities are seen within both lungs,most notably within the left upper lobe. Underlying infectious orinflammatory process is not excluded. Short interval follow-up imaging toresolution is recommended. 4. A 1.2 cm nodule is seen in the right upper lobe, new from the prior CTfrom 2017. This is nonspecific but cannot exclude neoplasm or sequelae ofinfection. Attention on short-term interval follow-up imaging isrecommended. Could correlate with tissue sampling if clinically desired. 5. Splenomegaly. 6. Small hiatal hernia. 7. Mildly prominent bilateral iliac chain lymph nodes, nonspecific. Noretroperitoneal or inguinal lymphadenopathy is seen. 8. Diffuse skin thickening of the left breast with notable abnormalstranding throughout the left breast soft tissues and subcutaneous fat.Findings appear similar to prior CT imaging from August 2016 and mayrepresent chronic posttreatment changes related to previous breastcancer. 9. Other chronic and nonemergent findings as above. Referred By: JUDI ARREAGA Interpreted By: Rei Gaines MD, 04/04/2024 9:43 AM us Judi Arreaga MD CT Final Result * CT GD ASPIR+BX BONE MARROW (03/26/2024 12:15 PM SKOOG OPERATOR) Anatomical Region Laterality Modality Bone Computed Tomogra phy, Radiographic Imaging 03/26/2024 4:31 PM SKOOG OPERATOR Impressions 03/26/2024 5:05 PM SKOOG OPERATOR IMPRESSION: CT-guided percutaneous bone marrow biopsy, as described. The attending radiologist, Dr. Webber, was in the department for all critical portions of the procedure, has reviewed the images, and agrees with the content of this report. Dictated By: MONA Eric on 03/26/2024 4:31 PM Ordered By: JUDI ARREAGA Interpreted By: MONA Eric, 03/26/2024 4:31 PM Narrative 03/26/2024 5:05 PM SKOOG OPERATOR [address] [address] PROCEDURE: CT-guided bone marrow aspiration and biopsy DATE OF PROCEDURE: 03/26/2024 11:45 AM INDICATION: History of CLL. Primary provider: Mik Kim PA-C Supervising provider: Jamshid Webber M.D. Conscious sedation: Administered and monitored by a qualified interventional radiology nurse under supervision of the interventional physician assistant corporation counsel. There was continuous monitoring of vital signs including pulse oximetry, end-tidal CO2, and EKG. Total intraservice or kdum-bt-sygl sedation time: 5 minutes. TECHNIQUE AND FINDINGS: Informed written consent was obtained. The patient was then brought to the CT scanner suite, placed in the prone position, and [place] protocol was observed to verify correct patient, site, and procedure to be performed Preliminary CT scan was then performed demonstrating normal bone mineralization. A safe path of approach to the right posterior iliac crest was selected. The skin was marked, sterilely prepared, and draped. Subsequently, after administration of local anesthesia using buffered 1% lidocaine, a 22 gauge needle was advanced to the periosteum and 0.5% Marcaine was administered for longer acting periosteal anesthesia. An introducer needle was advanced to the posterior medial cortex under intermittent CT visualization. The needle was then connected to an [employer] motorized device to penetrate the cortex. At this point, the stylette was removed and serial aspiration of a total of 10 mL of marrow was obtained. Following this, again using the motorized [...] Procedure Note Jamshid Webber MD - 03/26/[address] [address] PROCEDURE: CT-guided bone marrow aspiration and biopsy DATE OF PROCEDURE: 03/26/2024 11:45 AM INDICATION: History of CLL. Primary provider: Mik Kim PA-C Supervising provider: Jamshid Webber M.D. Conscious sedation: Administered and monitored by a qualifiedinterventional radiology nurse under supervision of the interventionalphysician assistant corporation counsel. There was continuous monitoring of vital signsincluding pulse oximetry, end-tidal CO2, and EKG. Total intraservice rbrhnh-vv-tnxv sedation time: 5 minutes. TECHNIQUE AND FINDINGS: Informed written consent was obtained. The patient was then brought to theCT scanner suite, placed in the prone position, and [place] protocol wasobserved to verify correct patient, site, [...] (ABNORMAL) CREATININE WHOLE BLOOD (03/26/2024 12:15 PM SKOOG OPERATOR) CREATININE WHOLE BLOOD 0.9 0.6 - 1.3 mg/dL 03/26/2024 12:24 PM SKOOG OPERATOR [facility] GFR ESTIMATE 65(L) >90 ML/MIN/1. 73 M2 03/26/2024 12:24 PM SKOOG OPERATOR [facility] GFR NOTES GFR REFERENCE S: 03/26/2024 12:24 PM SKOOG OPERATOR [facility] Comment: THE ESTIMATED GFR IS CALCULATED [...] TEST WAS PERFORMED: 1215 03/26/2024 12:24 PM SKOOG OPERATOR [facility] 03/26/2024 12:1 5 PM SKOOG OPERATOR Dawson Linton MD LABORATORY Final Result [facility] [address] [place] [phone], [phone] * CHROMOSOME ANALYSIS HEMATOLOGIC MALIGNANCY (03/26/2024 11:55 AM SKOOG OPERATOR) SPECIMEN SOURCE BONE MARROW NA AHEP 03/26/2024 3:11 PM SKOOG OPERATOR [facility] CLINICAL INDICATION LYMPHOMA 03/26/2024 3:11 PM SKOOG OPERATOR [facility] PRIOR THERAPY/TRANSPLANT UNK 03/26/2024 3:11 PM SKOOG OPERATOR [facility] PHYSICIAN PHONE [facility] 3:11 PM SKOOG OPERATOR [facility] Comment: [phone] CLIENT PHONE [phone] 03/26/2024 3:11 PM SKOOG OPERATOR [facility] Comment: [phone] CHROMOSOME BLOOD REPORT 04/01/19 2:52 PM SKOOG OPERATOR [facility] [employer] KRISTEN VELAZQUEZ Comment: Order ID: [id number] Specimen Type: Bone Marrow Clinical Indication: Lymphoma RESULT: ABNORMAL KARYOTYPE with TRISOMY 12 INTERPRETATION: [...] remission/relapse status. NOMENCLATURE: 47,XX,+12[14]/46,XX[6] ASSAY INFORMATION: Method: G-Band (Digital Analysis: [employer]Pet[employer]) Cells Counted: 20 Band Level: 400 Cells Analyzed: 20 Cells Karyotyped: 4 Small clonal populations and subtle chromosome abnormalities may not be identified. Irish Brannon, Ph.D., [facility], Training And Development Project Leader, Cytogenetics and Genomics, Electronic Signature: 04/01/2024 3:08 PM For more information on this test, go to http://education.[employer]/faq/Ca-chromosome Test Performed by [facility], VODECLIC [facility], [address] [place] [address] Mike Santana M.D., Ph.D., Director of Laboratories , [place] [id number] 03/26/2024 11:5 5 AM SKOOG OPERATOR Judi Arreaga MD LABORATORY Final Result [employer] [address] [id number], [facility] [address] [place] [id number], [place] [phone] * XR CHEST PA OR AP 1V (03/26/2024 10:47 AM SKOOG OPERATOR) Anatomical Region Laterality Modality Chest Radiographic Fidelia ging 03/26/2024 11:0 4 AM SKOOG OPERATOR Impressions 03/26/2024 11:14 AM SKOOG OPERATOR IMPRESSION: Cardiomegaly with probable pulmonary congestion/mild interstitial CHF.Patchy opacity in the left midlung laterally which could represent pneumonia. Recommend correlation with any recent outside films if possible. Ordered By: JAMSHID WEBBER Interpreted By: Jamshid Webber MD, 03/26/2024 11:04 AM Narrative 03/26/2024 11:14 AM SKOOG OPERATOR [address] [address] EXAM DESCRIPTION: Chest 1 view EXAM TIME : 03/26/2024 10:44 AM INDICATION: Shortness of breath. History of CLL. Patient apparently has history of ELIER. COMPARISON FILM : CTA chest 08/23/2016. TECHNIQUE: Chest- 1 - view, 1 - images FINDINGS: Upright AP film obtained. Interval removal of previously present Ieybnb-k-Lyhs. Mild cardiomegaly. Calcified aortic knob. Central pulmonary congestion with interstitial changes suggestive of CHF. In addition there is patchy groundglass opacity in the left midlung laterally which could represent pneumonia. Lungs questionable very minimal blunting left costophrenic angle, no significant size effusions. No pneumothorax. No acute bony abnormality. Procedure Note Jamshid Webber MD - 03/26/[address] [address] EXAM DESCRIPTION: Chest 1 view EXAM TIME : 03/26/2024 10:44 AM INDICATION: Shortness of breath. History of CLL. Patient apparently hashistory of ELIER. COMPARISON FILM : CTA chest 08/23/2016. TECHNIQUE: Chest- 1 - view, 1 - images FINDINGS: Upright AP film obtained. Interval removal of previously jcvnpskDrkxhw-p-Luyu. Mild cardiomegaly. Calcified aortic knob. Centralpulmonary congestion [...] * TYPE & SCREEN (03/26/2024 9:58 AM SKOOG OPERATOR) UNITS ORDERED 1 03/26/2024 10:20 AM SKOOG OPERATOR [facility] ABO/RH A POSITIVE 03/26/2024 10:54 AM SKOOG OPERATOR [facility] ANTIBODY SCREEN NEGATIVE 03/26/2024 10:54 AM SKOOG OPERATOR [facility] SAMPLE EXPIRATION 03/29/2024,2 359 03/26/2024 10:09 AM SKOOG OPERATOR [facility] 03/26/2024 9:58 AM SKOOG OPERATOR Mik Kim PA-C BLOOD BANK TEST ORDERABLES Final Result Performing Organization Address [facility] de Phone Number [facility] [address] [place] [address], [phone] * (ABNORMAL) PROTIME/INR, VENOUS (PROTHROMBIN TIME) (03/26/2024 8:28 AM SKOOG OPERATOR) PROTIME 14.3(H) 9.4 - 12.5 SEC 03/26/2024 9:06 AM SKOOG OPERATOR [facility] INR 1.2(H) 0.8 - 1.1 03/26/2024 9:06 AM SKOOG OPERATOR [facility] 03/26/2024 8:28 AM SKOOG OPERATOR Dawson Linton MD LABORATORY Final Result Performing Organization Address [facility] Co de Phone Number [facility] [address] [place] [address], [phone] * (ABNORMAL) CBC W/DIFF AUTOMATED (03/26/2024 8:28 AM SKOOG OPERATOR) [facility] WBC 6.16 4.00 - 10.80 x10'3/uL 03/26/2024 9:26 AM [facility] RBC 2.39(L) 4.10 - 5.40 x10'6/uL 03/26/2024 9:26 AM [facility] HGB 6.7(LL) 12.0 - 16.0 G/DL 03/26/2024 9:26 AM [facility] Comment: This result [place] called to [id number] IN RADIOLOGY by [id number] on 03/26/2024 09:24:23, and has been read back. HCT 21.8(L) 36.0 - 47.0 % 03/26/2024 9:26 AM [facility] MCV 91.2 78.0 - 100.0 FL 03/26/2024 9:26 AM [facility] MCH 28.0 27.0 - 31.0 PG 03/26/2024 9:26 AM [facility] MCHC 30.7(L) 33.0 - 36.0 G/DL 03/26/2024 9:26 AM [facility] RDW 17.1(H) 11.5 - 14.5 % 03/26/2024 9:26 AM [facility] PLT 48(L) 150 - 350 x10'3/uL 03/26/2024 9:26 AM [facility] MPV 10.8(H) 7.4 - 10.4 FL 03/26/2024 9:26 AM [facility] DIFFERENTIAL TYPE MANUAL DIFFERENTIAL 03/26/2024 9:29 AM [facility] NRBC % 0.0 % 03/26/2024 9:29 AM [facility] SEG NEUTROPHILS 70 % 9:29 AM [facility] LYMPHOCYTES 22 % 03/26/2024 9:29 AM [facility] MONOCYTES 4 % 03/26/2024 9:29 AM [facility] EOSINOPHILS 3 % 03/26/2024 9:29 AM [facility] BASOPHILS 1 % 03/26/2024 9:29 AM [facility] ABS. NEUTROPHILS 4.31 1.60 - 8.30 x10'3/uL 03/26/2024 9:29 AM [facility] ABS. LYMPHOCYTES 1.36 0.80 - 4.70 x10'3/uL 03/26/2024 9:29 AM [facility] ABS. MONOCYTES 0.25 0.00 - 1.50 x10'3/uL 03/26/2024 9:29 AM [facility] ABS. EOSINOPHILS 0.18 0.00 - 0.40 x10'3/uL 03/26/2024 9:29 AM [facility] ABS. BASOPHILS 0.06 0.00 - 0.20 x10'3/uL 03/26/2024 9:29 AM [facility] ABS. NUCLEATED RBC'S 0.00 0.00 - 0.01 x10'3/uL 03/26/2024 9:29 AM [facility] RBC MORPHOLOGY SLIDE REVIEWED 2024 9:29 AM [facility] ANISO SLIGHT 03/26/2024 9:29 AM [facility] POIKLO SLIGHT 03/26/2024 9:29 AM [facility] HYPOCHROMASIA SLIGHT 03/26/2024 9:29 AM [facility] OVALOCYTES PRESENT 03/26/2024 9:29 AM [facility] TEAR DROP PRESENT 03/26/2024 9:29 AM [facility] PLT EST. DECREASED 03/26/2024 9:29 AM SKOOG OPERATOR [facility] 03/26/2024 8:28 AM SKOOG OPERATOR Dawson Linton MD LABORATORY Final Result [facility] [address] [place] [address], [phone] from Last 3 Months Insurance [facility] MEDICARE Care Teams [employer] Mer[employer] Relationship Specialty Start Date End Date Non-Staff, Provider PCP - General UNKNOWN PHYSICIAN SPECIALTY 12/25/23
--- OUTSIDE RECORDS SUMMARY | 2024-04-08 07:02 | XMS_ITS | Data Portability ---
Author Organization [place] [facility], Main Office Address [address] [place] [address] Care Team Providers Care Oil And Gas Superintendent Name Role Phone KEANU SANTIAGO Primary Care Provider [phone] KEANU SANTIAGO Referring Provider [phone] Assessment Encounter Date Assessment Date Assessment LastModified [...] more than half the time spent in hxdw-wj-cpio care. Not available 02/01/2023 14:31:51 03/07/2023 03/07/2023 [...] She has range of motion from 0- 115 without any discomfort. She has no increased [...] spent treatment patient more half of this yedb-aa-ladn conversation Not available 03/07/2023 12:20:35 03/28/2023 03/28/2023 [...] knee 024 03/07/19 24 [email or web address] [facility] [place], [address], [place], [address], 4 12:21:50 XR, knee 024 03/28/19 24 [email or web address] [facility] [place], [address], [place], [address], 4 16:37:40 Medication Orders None record ed. Patient TargetsNo targets recorded. Patient InstructionsNo instructions recorded. Reason for Referral None Reported. Results Created Date Observation Date Name Description Value Unit Range Abnormal Flag Note LastModifiedBy Organization Detail LastModifiedTime 06/07/19 22 XR, hand No observ ation record ed. [id number] [facility] [place] [address], [place], [address], 05/02/2022 01:01:26 06/07/19 22 XR, shoul karlie No observ ation record ed. [id number] [facility] [place] [address], [place], [address], 05/02/2022 01:01:26 06/21/19 22 XR, humer us No observ ation record ed. [id number] [facility] [place] [address], [place], [address], 05/02/2022 01:01:26 07/05/19 22 XR, hand No observ ation record ed. [id number] [facility] [place] [address], [place], [address], 05/02/2022 01:01:26 07/05/19 22 XR, shoul karlie No observ ation record ed. [id number] [facility] [place] [address], [place], [address], 05/02/2022 01:01:26 07/28/19 22 07/27/2021 XR, shoul karlie No observ ation record ed. [id number] [facility] [place] [address], [place], [address], 05/02/2022 01:01:26 01/30/20 23 XR, knee No observ ation record ed. [email or web address] Not Available 2022 16:59:15 03/07/19 24 XR, knee No observ ation record ed. [facility] [place] [address], [place], [address], 03/07/2023 12:18:44 03/28/19 24 XR, knee No observ ation record ed. [facility] [place] [address], [place], [address], 03/28/2023 16:31:08 Result Notes None recorded. Problems Name Problem SNOMED Code Status Onset Date Resolution Date Notes Provider Name and Address Organization Details Recorded Time Pain of right shoulder joint 37823259600953 100 Active 2021 Not Available [facility] 3 00:59:39 Fracture of phalanx of finger 25666139 Active 2021 Not Available [facility] 3 00:59:39 Pain of left hand 47167617557446 3 Active 2021 Not Available [facility] 3 00:59:39 Closed fracture of upper end of humerus 46160588 Active 2021 Not Available [facility] 3 00:59:40 Pain of right knee joint 01125508208454 0 Active 2022 NAPOLEON Wan, [facility] 3 12:25:42 Fracture of ankle 83717142 Active 2023 NAPOLEON Wan, [facility] 4 10:58:49 Closed fracture of right patella 38980239381086 100 Active 2023 MONA Red [address] [place] [address], [address] [address], [place], [address] , [facility] 4 11:35:53 Problem Notes None recorded. Procedures Surgical History Date Name Laterality Status Provider Name and Address Organization Details Recorded Time Breast Surgery completed Not Available [facility] 05/02/2022 00:58:24 procedure on hand completed Not Available [facility] 05/02/2022 00:58:24 Cataract Surgery completed Not Available [facility] 05/02/2022 00:58:24 Imaging Results Imaging Date Name Status LastModified by [facility] Details LastModified Time 06/06/2021 XR, hand completed [id number] 026 [facility] [place] [address], [place], [address], 05/02/2022 01:01:26 06/06/2021 XR, shoulder completed [id number] 30 026 [facility] [place] [address], [place], [address], 05/02/2022 01:01:26 06/20/2021 XR, humerus completed [id number] 30 026 [facility] [place] [address], [place], [address], 05/02/2022 01:01:26 07/27/2021 XR, shoulder completed [id number] 30 026 [facility] [place] [address], [place], [address], 05/02/2022 01:01:26 07/04/2021 XR, hand completed [id number] 30 026 [facility] [place] [address], [place], [address], 05/02/2022 01:01:26 07/04/2021 XR, shoulder completed [id number] 30 026 [facility] [place] [address], [place], [address], 05/02/2022 01:01:26 01/29/2023 XR, knee completed Information no t available 01/29/2023 16:59:15 03/07/2023 XR, knee completed [facility] [place] [address], [place], [address], 03/07/2023 12:18:44 03/28/2023 XR, knee completed [facility] [place] [address], [place], [address], 03/28/2023 16:31:08 Procedure Notes None recorded. Medical [...] Not Available nystatin 100,000 unit/mL oral suspension 06/06 completed Not Available Not Available Not [...] completed Not Available Not Available Not Available Ferchotri [employer] 2021 active Not Available Not Available Not Avai lable Paxlovid 300 mg (150 mg x 2)-100 mg tablets in a dose pack TK 2 NIRMATREL VIR TS AND 1 RITONAVIR T TOGETHER PO BID FOR 5 DAYS BID FOR 5 DAYS 03/07 completed Not Available Not Available Not Available Vitals Date Recorded Body height Body height Provider Name and Address Organization Details Last Updated DateTime 05/02/2022 144.78 cm 144.78 cm Not Available [facility] 00:58:55 Date Recorded Body height Body mass index (BMI) Body weight Provider Name and Address Organization Details Last Updated DateTime 01/31/2023 144.78 cm 32.9 kg/m2 73073.04 g Krys Campos [facility] 01/31/2023 12:39:06 Date Recorded Body height Provider Name an d Address Organization Details Last Updated DateTime 03/07/2023 144.78 cm Krys Campos [facility] 03/07/2023 10:57:14 Date Recorded Body height Provider Name an d Address Organization Details Last Updated DateTime 03/28/2023 144.78 cm Michela Varner [facility] 03/28/2023 14:13:14 Social History Question Answer Notes LastModified by Organizat ion Details LastModified Time Tobacco Smoking Status Never Smoker Not Available [facility] 05/02/2022 00:58:03 What Is Your Level Of Alcohol Consumption? None [id number] Information not available 05/02/2022 Sex: Unknown Functional Status None recorded. Mental Status None recorded. Family History Relationship Description Onset Age of this Age Resolved Age Notes LastModified by Organization Details LastModified Time Father Hypertensive disorder [id number] Not available 05/02/2022 00:58:26 Father Diabetes mellitus [id number] Not available 05/02/2022 00:58:26 Mother Hypertensive disorder [id number] Not available 05/02/2022 00:58:26 Mother Diabetes mellitus [id number] Not available 05/02/2022 00:58:26 Medical History Condition [...] HAVE YOU BEEN HOSPITALIZED OR SEEN IN [facility] IN THE PAST YEAR ? N BURSITIS [...] SNOMED-CT Code Diagnosis ICD10 Code Diagnosis Note [id number] [facility] [place] [address] [place] [address] 05/23/2021 00:00:00 05/27/2021 12:10:32 [id number] [facility] [place] [address] [place] [address] 06/06/2021 00:00:00 06/06/2021 14:59:59 [id number] [facility] [place] [address] [place] [address] 06/20/2021 00:00:00 06/20/2021 10:31:52 [id number] [facility] [place] [address] [place] [address] 07/04/2021 00:00:00 07/04/2021 17:33:55 [id number] [facility] [place] [address] [place] [address] 07/27/2021 00:00:00 07/30/2021 17:54:03 [id number] Christian Olsen MD [facility] [place] [address] [place] [address] 01/31/2023 12:01:28 02/03/2023 10:53:27 Pain of right knee joint 2094950902 63594 M25.925 [id number] MONA Red [facility] [place] [address] [place] [address] 03/07/2023 10:46:53 03/07/2023 12:21:50 Closed fracture of right patella 5945614494 1547574 S82.001A [id number] MONA Red [facility] [place] [address] [place] [address] 03/28/2023 14:03:48 03/28/2023 16:37:40 Pain of right knee joint 5417090803 84536 M25.561 Health Concerns Section Related Observation LastModified by Organization Detai ls LastModified Time None Recorded Concern Status LastModified by Organization Details LastModified Time None Recorded Advance Directives Directive None Recorded Payers Encounter Date Sequence Insurance Name Policy Number Policy Guerrero Covered Member ID Guerrero Member ID Guarantor Name 01/31/2023 1 [place] Elayne Salmeron [id number] Elayne Salmeron 01/31/2023 2 [employer] (MEDICARE SUPPLEMENT) Elayne Salmeron [id number] Elayne Salmeron 03/07/2023 1 [place] Elayne Salmeron [id number] Elayne Salmeron 03/07/2023 2 [employer] (MEDICARE SUPPLEMENT) Elayne Salmeron [id number] Elayne Salmeron 03/28/2023 1 [place] Elayne Salmeron [id number] Elayne Salmeron 03/28/2023 2 [employer] (MEDICARE SUPPLEMENT) Elayne Salmeron [id number] Elayne Salmeron Notes Date Note Type Note [...] with her son today. Christian Olsen MD [address] [place] [address], [facility] [address], [place], [address], [place] [facility] 02/01/2023 14:32:04 OBGyn Episode No OBEpisode recorded.
--- OUTSIDE RECORDS SUMMARY | 2024-04-08 07:02 | XMS_ITS | Encounter Summary ---
Author Organization [facility] Address [facility] [place] [address] Care Team Providers Care Radio Board Operator Announcer Name Role Phone Non-Staff, Provider Primary Care Provider Luis troncoso Encounter Details Date Type Department Care Team (Late st Contact Info) Description 03/27/2024 [facility] Documentation [address] [place] [address] Pema Kinsey MD [address] 1[address] [place], [place] [address] Social History Tobacco Use Types Packs/Day Years Used Date Smoking Tobacco: Never Smokeless Tobacco: Never Alcohol Use Standard Drinks/Week Comments Not Currently 0 (1 standard drink = 0.6 oz pur e alcohol) Comments Unknown Sex and Gender Information Value Date Recorded Sex Assigned at Female 03/26/2024 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
[2024-04-08 07:21] LABS: Hematocrit 21.6 % (35.0-42.0)
[2024-04-08 08:04] LABS: Hemoglobin 6.4 g/dL (11.7-13.8)
[2024-04-09] MEDS: SODIUM CHLORIDE 0.9% IV 250 ML 10 ML IVPB (14:00)
[2024-04-09 14:03] VITALS: BP 121/74; PULSE 72; RESP 16; TEMP 36.6; O2SAT 96
[2024-04-09 14:12] VITALS: BMI 30.5
[2024-04-09 14:18] VITALS: BP 130/69; PULSE 68; RESP 14; TEMP 36.6; O2SAT 95
--- NOTE | 2024-04-09 14:19 | PC.NURSE ---
1400 Patient here for Transfusion of 1 unit PRBC's. Consent signed. Education given. No concerns voiced. 1403 1 unit of PRBC's started. Rate 60 ml/hr.
--- NOTE | 2024-04-09 14:24 | PC.NURSE ---
1418 NO s/sx of blood transfusion reaction noted or reported. Up rate 100 ml/hr.
[2024-04-09 15:18] VITALS: BP 134/73; PULSE 68; RESP 14; TEMP 36.6; O2SAT 97
[2024-04-09 16:18] VITALS: BP 136/74; PULSE 67; RESP 16; TEMP 36.6; O2SAT 96
[2024-04-09 17:00] VITALS: BP 136/63; PULSE 64; RESP 16; TEMP 36.6; O2SAT 96
--- NOTE | 2024-04-09 17:15 | PC.NURSE ---
1518 Doing well. No blood transfusion reaction note or reported. Up rate to 125 ml/hr. 1618 No concerns voiced. Up rate to 150 ml/hr from her on out. 1700 1 unit of PRBC's completed. Tolerated well. Normal saline infusion.
[2024-04-09 17:19] VITALS: BP 139/64; PULSE 67; RESP 16; TEMP 36.6; O2SAT 96
--- NOTE | 2024-04-09 17:20 | PC.NURSE ---
1720 Son here. Normal saline cleared line. Post H/H per protocol collected. Patient ambulated to bathroom to void and back. Steady on feet. 1722 Safe exit of hospital per wc to sons car.
[2024-04-09 17:53] LABS: Hematocrit 24.9 % (35.0-42.0); Hemoglobin 7.6 g/dL (11.7-13.8)
== END 2024-04-09 13:48 | disposition home or self-care (01) ==
LOC: CHSTREATRM 13:47
PROVIDERS: PCP Internal Medicine; Visit Provider Internal Medicine
DX: D64.9 Anemia, unspecified (principal)
CPT/HCPCS: 36415; 36430; 85014; 85018; 86850; 86880; 86900; 86901; 86902; 86922; P9016

== ENCOUNTER 2024-04-24 10:00 | Outpatient (CLI) | payer MEDICARE, SELFPAY ==
--- OUTSIDE RECORDS SUMMARY | 2024-04-24 10:31 | XMS_ITS | Encounter Summary ---
Author Organization [facility] Address [address] [place] [address] Care Team Providers Care Content Designer Name Role Phone Non-Staff, Provider Primary Care Provider Luis troncoso Encounter Details Date Type Department Care Team (Late st Contact Info) Description 03/27/2024 [facility] Documentation [place] [address] [place] [address] Pema Kinsey MD [address] [place], [place] [address] Social History Tobacco Use Types Packs/Day Years Used Date Smoking Tobacco: Never Smokeless Tobacco: Never Alcohol Use Standard Drinks/Week Comments Not Currently 0 (1 standard drink = 0.6 oz pur e alcohol) Comments Unknown Sex and Gender Information Value Date Recorded Sex Assigned at Female 03/26/2024 8:00 AM METAL LATHER Legal Sex Female 11:03 PM METAL LATHER Gender Identity Not on file Sexual Orientation [...] on filedocumented in this encounter Care Teams Content Designer Relationship Specialty Start Date End Date Non-Staff, Provider PCP - General UNKNOWN PHYSICIAN SPECIALTY 12/25/23 documented as of this encounter
--- OUTSIDE RECORDS SUMMARY | 2024-04-24 10:31 | XMS_ITS | Data Portability ---
Author Organization [place] [facility], Main Office Address [address] [place] [address] Care Team Providers Care Drill Presser Name Role Phone KEANU SANTIAGO Primary Care [...] more than half the time spent in xpjc-mt-fjfc care. Not available 02/01/2023 14:31:51 03/07/2023 03/07/2023 [...] spent treatment patient more half of this vtsz-cu-xjdg conversation Not available 03/07/2023 12:20:35 03/28/2023 03/28/2023 [...] knee 024 03/28/19 24 [email or web address] [facility] [place], [address], [place], [address], 4 16:37:40 XR, knee 024 03/07/19 24 [email or web address] [facility] [place], [address], [place], [address], 4 12:21:50 Medication Orders None record ed. Patient TargetsNo targets recorded. Patient InstructionsNo instructions recorded. Reason for Referral None Reported. Results Created Date Observation Date Name Description Value Unit Range Abnormal Flag Note LastModifiedBy Organization Detail LastModifiedTime 06/07/19 22 XR, hand No observ ation record ed. [id number] [facility] [place] [address], [place], [address], 05/02/2022 01:01:26 06/07/19 22 XR, shoul karlie No observ ation record ed. [id number] [facility] [place] [address], [place], [address], 05/02/2022 01:01:26 06/21/19 22 XR, humer us No observ ation record ed. [id number] [facility] [place] [address], [place], [address], 05/02/2022 01:01:26 07/05/19 22 XR, hand No observ ation record ed. [id number] [facility] [place] [address], [place], [address], 05/02/2022 01:01:26 07/05/19 22 XR, shoul karlie No observ ation record ed. [id number] [facility] [place] [address], [place], [address], 05/02/2022 01:01:26 07/28/19 22 07/27/2021 XR, shoul karlie No observ ation record ed. [id number] [facility] [place] [address], [place], [address], 05/02/2022 01:01:26 01/30/20 23 XR, knee No observ ation record ed. Not Available 2022 16:59:15 03/07/19 24 XR, knee No observ ation record ed. [facility] [place] [address], [place], [address], 03/07/2023 12:18:44 03/28/19 24 XR, knee No observ ation record ed. [facility] [place] [address], [place], [address], 03/28/2023 16:31:08 Result Notes None recorded. Problems Name Problem SNOMED Code Status Onset Date Resolution Date Notes Provider Name and Address Organization Details Recorded Time Pain of right shoulder joint 27740344768047 100 Active 2021 Not Available [facility] 3 00:59:39 Fracture of phalanx of finger 76230212 Active 2021 Not Available [facility] 3 00:59:39 Pain of left hand 91152738150975 3 Active 2021 Not Available [facility] 3 00:59:39 Closed fracture of upper end of humerus 23943992 Active 2021 Not Available [facility] 3 00:59:40 Pain of right knee joint 27635054380036 0 Active 2022 NAPOLEON Wan, [facility] 3 12:25:42 Fracture of ankle 52876970 Active 2023 NAPOLEON Wan, [facility] 4 10:58:49 Closed fracture of right patella 46791617121198 100 Active 2023 MONA Red [address] [place] [address], [place] [address], [place], [address] , [facility] 4 11:35:53 Problem Notes None recorded. Procedures Surgical History Date Name Laterality Status Provider Name and Address Organization Details Recorded Time Breast Surgery completed Not Available [facility] 05/02/2022 00:58:24 procedure on hand completed Not Available [facility] 05/02/2022 00:58:24 Cataract Surgery completed Not Available [facility] 05/02/2022 00:58:24 Imaging Results Imaging Date Name Status LastModified by [facility] Details LastModified Time 06/06/2021 XR, hand completed [id number] [facility] [place] [address], [place], [address], 05/02/2022 01:01:26 06/06/2021 XR, shoulder completed [id number] 30 026 [facility] [place] [address], [place], [address], 05/02/2022 01:01:26 06/20/2021 XR, humerus completed [id number] 30 026 [facility] [place] [address], [place], [address], 05/02/2022 01:01:26 07/27/2021 XR, shoulder completed [id number] 30 026 [facility] [place] [address], [place], [address], 05/02/2022 01:01:26 07/04/2021 XR, hand completed [id number] 30 026 [facility] [place] [address], [place], [address], 05/02/2022 01:01:26 07/04/2021 XR, shoulder completed [id number] 30 026 [facility] [place] [address], [place], [address], 05/02/2022 01:01:26 01/29/2023 XR, knee completed [email or web address] Information no t available 01/29/2023 16:59:15 03/07/2023 XR, knee completed [facility] [place] [address], [place], [address], 03/07/2023 12:18:44 03/28/2023 XR, knee completed [facility] [place] [address], [place], [address], 03/28/2023 16:31:08 Procedure Notes None recorded. Medical [...] Updated DateTime 07/04/2021 144.78 cm Not Available [facility] 3 00:58:55 Date Recorded Body height Provider Name an d Address Organization Details Last Updated DateTime 07/27/2021 144.78 cm Not Available [facility] 3 00:58:55 Date Recorded Body height Body mass index (BMI) Body weight Provider Name and Address Organization Details Last Updated DateTime 01/31/2023 144.78 cm 32.9 kg/m2 25894.04 g Krys Campos Mary Jo [facility] 01/31/2023 12:39:06 Date Recorded Body height Provider Name an d Address Organization Details Last Updated DateTime 03/07/2023 144.78 cm Krys Campos Mary Jo [facility] 03/07/2023 10:57:14 Date Recorded Body height Provider Name an d Address Organization Details Last Updated DateTime 03/28/2023 144.78 cm Michela Gardenia [facility] 03/28/2023 14:13:14 Social History Question Answer Notes LastModified by Organizat ion Details LastModified Time Tobacco Smoking Status Never Smoker Not Available [facility] 05/02/2022 00:58:03 What Is Your Level Of Alcohol Consumption? None [id number] Information not available 05/02/2022 Sex: Unknown Functional Status None recorded. Mental Status None recorded. Family History Relationship Description Onset Age of this Age Resolved Age Notes LastModified by Organization Details LastModified Time Father Hypertensive disorder [id number] Not available 05/02/2022 00:58:26 Father Diabetes mellitus [id number] Not available 05/02/2022 00:58:26 Mother Hypertensive disorder [id number] Not available 05/02/2022 00:58:26 Mother Diabetes mellitus [id number] Not available 05/02/2022 00:58:26 Medical History Condition Response BLINDNESS N KIDNEY STONES N MRSA N CARPAL TUNNEL SYNDROME N LUNG DISEASE/DISORDER N HISTORY OF DRUG ABUSE N COPD N RADIATION / CHEMOTHERAPY N SPORTS INJURY N ANKLE PAIN N BLOOD DISEASES N SCHIZOPHRENIA N SHINGLES N SHOULDER PAIN N DEPRESSION (INCLUDING POST ) N BOWEL PROBLEMS N STROKE/TIA N KNEE PAIN N ULCERS [...] HAVE YOU BEEN HOSPITALIZED OR SEEN IN [facility] IN THE PAST YEAR ? N BURSITIS [...] SNOMED-CT Code Diagnosis ICD10 Code Diagnosis Note [id number] [facility] [place] [address] [place] [address] 05/23/2021 00:00:00 05/27/2021 12:10:32 [id number] [facility] [place] [address] [place] [address] 06/06/2021 00:00:00 06/06/2021 14:59:59 [id number] [facility] [place] [address] [place] [address] 06/20/2021 00:00:00 06/20/2021 10:31:52 [id number] [facility] [place] [address] [place] [address] 07/04/2021 00:00:00 07/04/2021 17:33:55 [id number] [facility] [place] [address] [place] [address] 07/27/2021 00:00:00 07/30/2021 17:54:03 [id number] Christian Olsen MD [facility] [place] [address] [place] [address] 01/31/2023 12:01:28 02/03/2023 10:53:27 Pain of right knee joint 0848859469 27280 M25.796 [id number] MONA Red [facility] [place] [address] [place] [address] 03/07/2023 10:46:53 03/07/2023 12:21:50 Closed fracture of right patella 5959357475 [id number] S82.001A [id number] MONA Red [facility] [place] [address] [place] [address] 03/28/2023 14:03:48 03/28/2023 16:37:40 Pain of right knee joint 1023831528 40372 M25.561 Health Concerns Section Related Observation LastModified by Organization Detai ls LastModified Time None Recorded Concern Status LastModified by Organization Details LastModified Time None Recorded Advance Directives Directive None Recorded Payers Encounter Date Sequence Insurance Name Policy Number Policy Guerrero Covered Member ID Guerrero Member ID Guarantor Name 01/31/2023 1 [place] Elayne Salmeron [id number] Elayne Salmeron 01/31/2023 2 [employer] (MEDICARE SUPPLEMENT) Elayne Salmeron [id number] Elayne Salmeron 03/07/2023 1 [place] Elayne Salmeron [id number] Elayne Salmeron 03/07/2023 2 [employer] (MEDICARE SUPPLEMENT) Elayne Tamayoy [id number] Elayne Salmeron 03/28/2023 1 [place] Elayne Tamayoy [id number] Elayne Salmeron 03/28/2023 2 [employer] (MEDICARE SUPPLEMENT) Elayne Salmeron [id number] Elayne Salmeron Notes Date Note Type Note [...] with her son today. Christian Olsen MD [address] [place] [address], [facility] [address], [place], [address], [place] [facility] 02/01/2023 14:32:04 OBGyn Episode No OBEpisode recorded.
--- OUTSIDE RECORDS SUMMARY | 2024-04-24 10:31 | XMS_ITS | Encounter Summary ---
Author Organization [facility] Address [facility] [place] [address] Care Team Providers Care Neurosurgery Research Director Name Role Phone Non-Staff, Provider Primary Care Provider Luis troncoso Reason for Visit * Reason Onset Date Comments Preprocedure Call 03/19/[address] Nguyen's office and they will fax over signed office notes from 03/16/24 appt Encounter Details Date Type Department Care Team (Latest Contact Info) Description 03/19/2024 Pre-Procedure Call [facility] Interventional [facility]iology [address] [place] [address] Randee Alas RN Preprocedure Call (Spoke with [...] Sex Assigned at Female 03/26/2024 8:00 AM RECEPTIONIST CLERK Legal Sex Female 11:03 PM RECEPTIONIST CLERK Gender Identity Not on file Sexual [...] on filedocumented in this encounter Care Teams Neurosurgery Research Director Relationship Specialty Start Date End Date Non-Staff, Provider PCP - General UNKNOWN PHYSICIAN SPECIALTY 12/25/23 documented as of this encounter
--- OUTSIDE RECORDS SUMMARY | 2024-04-24 10:31 | XMS_ITS | Patient Health Record ---
Author Organization [facility] Address [address] [place], [place] [id number] Care Team Providers Care Golf Ball Marker Name Role Phone CHI GIBSON Unavailable [phone] Jonathon Nguyen Unavailable Unavailable BILL PEREZ Unavailable [phone] Allergies No Known Allergies Reason For Referral No Information Medications Medication SIG (Take, Route, Frequency, Duration) Notes Start Date End Date Status chondroitin sulfates 250 MG Oral Capsule ORAL chondroitin sulfates 250 MG Oral CapsuleOriginal Medicationchondroitin sulfates 250 MG Oral Capsule *Reorder from [employer] for eRx and Interaction Alerts* 07/20/2012 Active aspirin 81 MG Delayed Release Oral Tablet [Granular Aspirin] ORAL aspirin 81 MG Delayed Release Oral Tablet [Granular Aspirin]Original Medicationaspirin 81 MG Delayed Release Oral Tablet [Granular Aspirin] *Reorder from [employer] for eRx and Interaction Alerts* 07/20/2012 Active Glucosamine Sulfate 500 MG Oral Tablet ORAL glucosamine sulfate 500 MG Oral TabletOriginal Medicationglucosamine sulfate 500 MG Oral Tablet *Reorder from [employer] for eRx and Interaction Alerts* 07/20/2012 Active Magnesium Gluconate 550 MG Oral Tablet ORAL magnesium gluconate 550 MG Oral TabletOriginal Medicationmagnesium gluconate 550 MG Oral Tablet *Reorder from [employer] for eRx and Interaction Alerts* 07/20/2012 Active Immunizations Vaccine Route Administration Date Status Comme nts Influenza, high dose seasonal Unknown 12/19/2022 Admini stered Vital Signs Height-cm 149.86 cm 07/10/2023 Weight-kg 69.85 kg 07/10/2023 Height 59.00 in 07/10/2023 Weight 154 lbs 07/10/2023 BMI 31.1 kg/m2 07/10/2023 Encounters Encounter Location Date Provider Diagnosis [facility] [address] [place], [place] [id number] 05/08/2023 BILL PEREZ Tinea unguium B35.1 ; Pain in right toe(s) M79.674 ; Pain in left toe(s) M79.675 ; Other hammer toe(s) (acquired), right foot M20.41 ; Other hammer toe(s) (acquired), left foot M20.42 ; Unspecified atherosclerosis of [place] arteries of extremities, bilateral legs I70.203 and Type 2 diabetes mellitus with other circulatory complications E11.[address] [id number] 07/10/2023 BILL PEREZ Tinea unguium B35.1 ; Pain in right toe(s) M79.674 ; Pain in left toe(s) M79.675 ; Other hammer toe(s) (acquired), right foot M20.41 ; Other hammer toe(s) (acquired), left foot M20.42 ; Unspecified atherosclerosis of [place] arteries of extremities, bilateral legs I70.203 and Type 2 diabetes mellitus with other circulatory complications E11.[address] [id number] 09/11/2023 BILL PEREZ Tinea unguium B35.1 ; Pain in right toe(s) M79.674 ; Pain in left toe(s) M79.675 ; Other hammer toe(s) (acquired), right foot M20.41 ; Other hammer toe(s) (acquired), left foot M20.42 ; Unspecified atherosclerosis of [place] arteries of extremities, bilateral legs I70.203 and Type 2 diabetes mellitus with other circulatory complications E11.[address] [id number] 11/13/2023 BILL PEREZ Tinea unguium B35.1 ; Pain in right toe(s) M79.674 ; Pain in left toe(s) M79.675 ; Other hammer toe(s) (acquired), right foot M20.41 ; Other hammer toe(s) (acquired), left foot M20.42 ; Unspecified atherosclerosis of [place] arteries of extremities, bilateral legs I70.203 and Type 2 diabetes mellitus with other circulatory complications E11.59 [place] [address], [place] [id number] 01/22/2024 BILL PEREZ Tinea unguium B35.1 ; Pain in right toe(s) M79.674 ; Pain in left toe(s) M79.675 ; Other hammer toe(s) (acquired), right foot M20.41 ; Other hammer toe(s) (acquired), left foot M20.42 ; Unspecified atherosclerosis of [place] arteries of extremities, bilateral legs I70.203 and [...] (ICD-10 - M20.42) 05/08/2023 Unspecified atherosclerosis of [place] arteries of extremities, 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) Patient educated on risks and aggravating factors of PVD, including conservative treatment options such as a diet and exercise regimen to aid in slowing progression of vascular disease 07/10/2023 Unspecified atherosclerosis of [place] arteries of extremities, 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) Patient educated on risks and aggravating factors of PVD, including conservative treatment options such as a diet and exercise regimen to aid in slowing progression of vascular disease 09/11/2023 Unspecified atherosclerosis of [place] arteries of extremities, 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) Patient educated on risks and aggravating factors of PVD, including conservative treatment options such as a diet and exercise regimen to aid in slowing progression of vascular disease 11/13/2023 Unspecified atherosclerosis of [place] arteries of extremities, 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) Patient educated on risks and aggravating factors of PVD, including conservative treatment options such as a diet and exercise regimen to aid in slowing progression of vascular disease 01/22/2024 Unspecified atherosclerosis of [place] arteries of extremities, bilateral legs (ICD-10 - [...] Date Coverage End Date Medicare Part B [place] [address] [place] [phone] [id number] CICI HUTCHINSON Self - patient is the insured [facility] Life Paper Claim [address] [address] [place] [address] [id number] CICI HUTCHINSON Self - patient is the insured
--- OUTSIDE RECORDS SUMMARY | 2024-04-24 10:31 | XMS_ITS ---
Author Organization [facility] Address [address] [place], [place] [id number] Care Team Providers Care Senior Security Engineer Name Role Phone CHI GIBSON Unavailable [phone] Jonathon Nguyen Unavailable Unavailable BILL PEREZ Unavailable [phone] REASON FOR VISIT *General care Medications Medication SIG (Take, Route, Frequency, Duration) Notes Start Date End Date Status chondroitin sulfates 250 MG Oral Capsule ORAL chondroitin sulfates 250 MG Oral CapsuleOriginal Medicationchondroitin sulfates 250 MG Oral Capsule *Reorder from [employer] for eRx and Interaction Alerts* 07/20/2012 Active aspirin 81 MG Delayed Release Oral Tablet [Katelyn Aspirin] ORAL aspirin 81 MG Delayed Release Oral Tablet [[employer] Aspirin]Original Medicationaspirin 81 MG Delayed Release Oral Tablet [[employer] Aspirin] *Reorder from [employer] for eRx and Interaction Alerts* 07/20/2012 Active Glucosamine Sulfate 500 MG Oral Tablet ORAL glucosamine sulfate 500 MG Oral TabletOriginal Medicationglucosamine sulfate 500 MG Oral Tablet *Reorder from [employer] for eRx and Interaction Alerts* 07/20/2012 Active Magnesium Gluconate 550 MG Oral Tablet ORAL magnesium gluconate 550 MG Oral TabletOriginal Medicationmagnesium gluconate 550 MG Oral Tablet *Reorder from [employer] for eRx and Interaction Alerts* 07/20/2012 Active Encounters Encounter Location Date Provider Diagnosis [place] [address] [place], [place] [id number] 01/22/2024 BILL PEREZ Tinea unguium B35.1 ; Pain in right toe(s) M79.674 ; Pain in left toe(s) M79.675 ; Other hammer toe(s) (acquired), right foot M20.41 ; Other hammer toe(s) (acquired), left foot M20.42 ; Unspecified atherosclerosis of [place] arteries of extremities, bilateral legs I70.203 and [...] (ICD-10 - M20.42) 01/22/2024 Unspecified atherosclerosis of [place] arteries of extremities, bilateral legs (ICD-10 - [...] conservative options were emphasized. Unspecified atherosclerosis of [place] arteries of extremities, bilateral legs Patient educated [...] CICI HUTCHINSON KDOB:[birth year] (78 yo F)Acc No.[id number]:01/22/2024 Patient: CICI DEAN Provider: iLvan PEREZ :1945 A ge:78 Y S ex:Female Date:01/22/2024 Address:[address] [place] [address], [place] [address] Subjective: * Chief Complaints: * 1 . *General care. * HPI: H PI: General care P atient presents to the office for diabetic foot care. Patient states that their nails are thickened, elongated and painful. Patient states that it is aggravated by shoe gear. Onset is gradual., Patient denies taking blood thinners., Date last seen by Dr. Nguyen was 01/2024., Initials [facility]. * ROS: G eneral / Constitutional: Patient denies w eakness. R espiratory: Patient denies c hronic cough, shortness of breath, sputum production. C ardiovascular: Patient denies c hest pain, history of ND, irregular heartbeat. M usculoskeletal: Patient complains of j oint stiffness, hammertoes, flat feet/ planus. P eripheral Vascular: Patient denies b lanching of skin, cold extremities, decreased sensation in extremities. S kin: Patient complains of n ail changes, fungal nails. ? N eurologic: Patient denies d izziness, gait abnormality, headache. * Medical History: * Medications: T aking Magnesium Gluconate 550 MG Oral Tablet ORAL , Notes to Pharmacist: magnesium gluconate 550 MG Oral TabletOriginal Medicationmagnesium gluconate 550 MG Oral Tablet *Reorder from [employer] for eRx and Interaction Alerts*, Taking Glucosamine Sulfate 500 MG Oral Tablet ORAL , Notes to Pharmacist: glucosamine sulfate 500 MG Oral TabletOriginal Medicationglucosamine sulfate 500 MG Oral Tablet *Reorder from [facility] for eRx and Interaction Alerts*, Taking aspirin 81 MG Delayed Release Oral Tablet [[employer] Aspirin] ORAL , Notes to Pharmacist: aspirin 81 MG Delayed Release Oral Tablet [[employer] Aspirin]Original Medicationaspirin 81 MG Delayed Release Oral Tablet [[employer] Aspirin] *Reorder from [facility] for eRx and Interaction Alerts*, Taking chondroitin sulfates 250 MG Oral Capsule ORAL , Notes to Pharmacist: chondroitin sulfates 250 MG Oral CapsuleOriginal Medicationchondroitin sulfates 250 MG Oral Capsule *Reorder from [facility] for eRx and Interaction Alerts* Objective: [...] . P ain in right toe(s) - M79.674? 3. P ain in left toe(s) - M79.675 4 . O ther hammer toe(s) (acquired), right foot - M20.41 5 . O ther hammer toe(s) (acquired), left foot - M20.42 6 . U nspecified atherosclerosis of [place] arteries of extremities, bilateral legs - I70.203 [...] were emphasized. 3. U nspecified atherosclerosis of [place] arteries of extremities, bilateral legs Notes: Patient educated on risks and aggravating factors of PVD, including conservative treatment options such as a diet and exercise regimen to aid in slowing progression of vascular disease ? 4. T ype 2 diabetes mellitus with [...] Information: * Visit Code: * Procedure Codes: 54220 DEBRIDE NAIL, 6 OR MORE. Modifiers: Q8 * UTIVE CANDIDATE DEVELOPER Sign off status: Completed true * Provider: Livan PEREZ Date: 03/23/2023 Generated for Rigoberto smith/Adali/Sharon on: 0 04/24/2024 10:30 AM EXECUTIVE CANDIDATE DEVELOPER History and Physical Notes * HPI (History [...]
--- OUTSIDE RECORDS SUMMARY | 2024-04-24 10:31 | XMS_ITS ---
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 Name Role Phone [facility] Unavailable [phone] Jonathon Nguyen Unavailable Unavailable BILL PEREZ Unavailable [phone] REASON FOR VISIT *General care Medications Medication SIG (Take, Route, Frequency, Duration) Notes Start Date End Date Status aspirin 81 MG Delayed Release Oral Tablet [Incentive Aspirin] ORAL aspirin 81 MG Delayed Release Oral Tablet [Incentive Aspirin]Original Medicationaspirin 81 MG Delayed Release Oral Tablet [Incentive Aspirin] *Reorder from [employer] for eRx and Interaction Alerts* 07/20/2012 Active chondroitin sulfates 250 MG Oral Capsule ORAL chondroitin sulfates 250 MG Oral CapsuleOriginal Medicationchondroitin sulfates 250 MG Oral Capsule *Reorder from [employer] for eRx and Interaction Alerts* 07/20/2012 Active Glucosamine Sulfate 500 MG Oral Tablet ORAL glucosamine sulfate 500 MG Oral TabletOriginal Medicationglucosamine sulfate 500 MG Oral Tablet *Reorder from [employer] for eRx and Interaction Alerts* 07/20/2012 Active Magnesium Gluconate 550 MG Oral Tablet ORAL magnesium gluconate 550 MG Oral TabletOriginal Medicationmagnesium gluconate 550 MG Oral Tablet *Reorder from [employer] for eRx and Interaction Alerts* 07/20/2012 Active Encounters Encounter Location Date Provider Diagnosis [address] [id number] 11/13/2023 BILL PEREZ Tinea unguium B35.1 ; Pain in right toe(s) M79.674 ; Pain in left toe(s) M79.675 ; Other hammer toe(s) (acquired), right foot M20.41 ; Other hammer toe(s) (acquired), left foot M20.42 ; Unspecified atherosclerosis of [place] arteries of extremities, bilateral legs I70.203 and [...] (ICD-10 - M20.42) 11/13/2023 Unspecified atherosclerosis of [place] arteries of extremities, bilateral legs (ICD-10 - [...] conservative options were emphasized. Unspecified atherosclerosis of [place] arteries of extremities, bilateral legs Patient educated [...] CICI HUTCHINSON KDOB:[birth year] (78 yo F)Acc No.[id number]:11/13/2023 Patient: CICI DEAN Provider: Livan PEREZ :1945 A ge:78 Y S ex:Female Date:11/13/2023 Address:[address] [place] [address], [place] [id number] Subjective: * Chief Complaints: * 1 . *General care. * HPI: H PI: General care P atient presents to the office for diabetic foot care. Patient states that their nails are thickened, elongated and painful. Patient states that it is aggravated by shoe gear. Onset is gradual., Patient denies taking blood thinners., Date last seen by Dr. Nguyen was 10/2023., Initials [facility]. * ROS: G eneral / Constitutional: Patient denies w eakness. R espiratory: Patient denies c hronic cough, shortness of breath, sputum production. C ardiovascular: Patient denies c hest pain, history of HI, irregular heartbeat. M usculoskeletal: Patient complains of [...] gluconate 550 MG Oral Tablet *Reorder from [employer] for eRx and Interaction Alerts*, Taking Glucosamine Sulfate 500 MG Oral Tablet ORAL , Notes to Pharmacist: glucosamine sulfate 500 MG Oral TabletOriginal Medicationglucosamine sulfate 500 MG Oral Tablet *Reorder from [facility] for eRx and Interaction Alerts*, Taking aspirin 81 MG Delayed Release Oral Tablet [Incentive Aspirin] ORAL , Notes to Pharmacist: aspirin 81 MG Delayed Release Oral Tablet [Incentive Aspirin]Original Medicationaspirin 81 MG Delayed Release Oral Tablet [Incentive Aspirin] *Reorder from [facility] for eRx and Interaction Alerts*, Taking chondroitin sulfates 250 MG Oral Capsule ORAL , Notes to Pharmacist: chondroitin sulfates 250 MG Oral CapsuleOriginal Medicationchondroitin sulfates 250 MG Oral Capsule *Reorder from [facility] for eRx and Interaction Alerts* [...] toe(s) (acquired), right foot - M20.41 5 .?Other hammer toe(s) (acquired), left foot - M20.42 6 . U nspecified atherosclerosis of [place] arteries of extremities, bilateral legs - I70.203 [...] were emphasized. 3. U nspecified atherosclerosis of [place] arteries of extremities, bilateral legs Notes: Patient [...] Information: * Visit Code: * Procedure Codes: 20280 DEBRIDE NAIL, 6 OR MORE. Modifiers: Q8 * Sign off status: Completed true * Provider: Livan PEREZ Date: 0 11/13/2023 Generated for Rigoberto smith/Adali/Sharon on: 0 04/24/2024 10:30 AM [employer] History and Physical Notes * HPI (History [...]
--- OUTSIDE RECORDS SUMMARY | 2024-04-24 10:31 | XMS_ITS | Clinical Summary ---
Author Organization [facility] Address [address] [place] [address] Care Team Providers Care [employer] Converter Name Role Phone Non-Staff, Provider Primary Care [...] Date Type Department Care Team Description 03/27/2024 [facility] Documentation [place] [address] [place] [address] Judi Arreaga MD 03/26/2024 8:03 AM FELT HAT POUNCING OPERATOR HAND - 03/26/2024 11:59 PM FELT HAT POUNCING OPERATOR HAND Hospital Encounter [facility] [address] [place] [address] Judi Arreaga MD Discharge Disposition: Home or Self Care (Routine Discharge) 03/26/2024 8:02 AM FELT HAT POUNCING OPERATOR HAND Hospital Encounter [facility] Laboratory [address] [place] [address] Dawson Linton MD Discharge Disposition: Home or Self Care (Routine Discharge) 03/26/2024 Travel 03/19/2024 Pre-Procedure Call [facility] Interventional Radiology [address] [place] [address] Randee Alas RN Preprocedure Call (Spoke with Dr. Nguyen's office and they will fax over signed office notes from 03/16/24 appt) 03/19/2024 Telephone [facility] Interventional Radiology [address] [place] [address] Katlyn Thurman RN Preprocedure Call (Son called to see if patient can have bone marrow biopsy appt earlier in the morning. Appt moved to 0830 lab, 0900 hold time and 1000 procedure. Son aware of changed time, npo at midnight and will need tour bus driver for the way home. Son stated patient has been seen by Dr. Nguyen in [place] on 03/16. ) from Last 3 Months Social History Tobacco Use Types Packs/Day Years Used Date Smoking Tobacco: Never Smokeless Tobacco: Never Tobacco Cessation:Counseling Given: Not Answered Alcohol Use Standard Drinks/Week Comments Not Currently 0 (1 standard drink = 0.6 oz pur e alcohol) Comments Unknown Sex and Gender Information Value Date Recorded Sex Assigned at Female 03/26/2024 8:00 AM FELT HAT POUNCING OPERATOR HAND Legal Sex Female 11:03 PM FELT HAT POUNCING OPERATOR HAND Gender Identity Not on file Sexual Orientation Not on file Last Filed Vital Signs Vital Sign Reading Time Taken Comments Blood Pressure 137/48 03/26/2024 1:05 PM FELT HAT POUNCING OPERATOR HAND Pulse 65 03/26/2024 1:05 PM FELT HAT POUNCING OPERATOR HAND Temperature 35.7 C (96.3 F) 12/26/2023 9:21 AM CDT Respiratory Rate 24 03/26/2024 1:05 PM FELT HAT POUNCING OPERATOR HAND Oxygen Saturation 94% 03/26/2024 1:18 PM FELT HAT POUNCING OPERATOR HAND Inhaled Oxygen Concentration - - Weight 68 kg (150 lb) 03/26/2024 9:21 AM FELT HAT POUNCING OPERATOR HAND Height 149.9 cm (4' 11) 03/26/2024 9:21 AM FELT HAT POUNCING OPERATOR HAND Body Mass Index 30.3 03/26/2024 9:21 AM FELT HAT POUNCING OPERATOR HAND Plan of Treatment Health Maintenance Due Date [...] CHEST+ABD+PEL W CON Routine 03/26/2024 12:20 PM FELT HAT POUNCING OPERATOR HAND Lymphoma, small lymphocytic ([facility]/HCC) CT GD ASPIR+BX BONE MARROW Routine 03/26/2024 12:15 PM FELT HAT POUNCING OPERATOR HAND Lymphoma, small lymphocytic ([facility] HHS/HCC) CREATININE WHOLE BLOOD Routine 03/26/2024 12:15 PM FELT HAT POUNCING OPERATOR HAND FLOW CYTOMETRY Routine 03/26/2024 11:55 AM FELT HAT POUNCING OPERATOR HAND CHROMOSOME ANALYSIS HEMATOLOGIC MALIGNANCY Routine 03/26/2024 11:55 AM FELT HAT POUNCING OPERATOR HAND XR CHEST PA OR AP 1V STAT 03/26/2024 10:47 AM FELT HAT POUNCING OPERATOR HAND Lymphoma, small lymphocytic (CMS/HCC HHS/HCC) TYPE & SCREEN STAT 03/26/2024 9:58 AM FELT HAT POUNCING OPERATOR HAND Lymphoma, small lymphocytic (CMS/HCC HHS/HCC) CBC W/DIFF AUTOMATED Routine 03/26/2024 8:28 AM FELT HAT POUNCING OPERATOR HAND Lymphoma, small lymphocytic (CMS/HCC HHS/HCC) PROTHROMBIN TIME, VENOUS Routine 03/26/2024 8:28 AM FELT HAT POUNCING OPERATOR HAND Lymphoma, small lymphocytic (CMS/HCC HHS/HCC) PATHOLOGY Routine 03/26/2024 12:00 AM FELT HAT POUNCING OPERATOR HAND from Last 3 Months Results * CT CHEST+ABD+PEL W CON (03/26/2024 12:20 PM FELT HAT POUNCING OPERATOR HAND) Anatomical Region Laterality Modality Chest, Abdomen, Pelvis Computed Tomography 04/04/2024 9:43 AM FELT HAT POUNCING OPERATOR HAND Impressions 04/04/2024 10:02 AM FELT HAT POUNCING OPERATOR HAND Impression: 1. Mediastinal and hilar lymphadenopathy as [...] 04/04/2024 9:43 AM Narrative 04/04/2024 10:02 AM FELT HAT POUNCING OPERATOR HAND [address] [address] Examination: CT chest, abdomen and pelvis with [...] osseous abnormalities are identified. Procedure Note Rei Gianes MD - 04/04/2024 [place] [address] Examination: CT chest, abdomen and pelvis with [...] left and trace right pleural effusions. Irregular iunxsudqysymgw-wh-che opacities are present within both lungs, most [...] GD ASPIR+BX BONE MARROW (03/26/2024 12:15 PM FELT HAT POUNCING OPERATOR HAND) Anatomical Region Laterality Modality Bone Computed Tomogra phy, Radiographic Imaging 03/26/2024 4:31 PM FELT HAT POUNCING OPERATOR HAND Impressions 03/26/2024 5:05 PM FELT HAT POUNCING OPERATOR HAND IMPRESSION: CT-guided percutaneous bone marrow biopsy, as described. The attending radiologist, Dr. Webber, was in the department for all critical portions of the procedure, has reviewed the images, and agrees with the content of this report. Dictated By: MONA Eric on 03/26/2024 4:31 PM Ordered By: JUDI ARREAGA Interpreted By: MONA Eric, 03/26/2024 4:31 PM Narrative 03/26/2024 5:05 PM FELT HAT POUNCING OPERATOR HAND [address] [address] PROCEDURE: CT-guided bone marrow aspiration and biopsy DATE OF PROCEDURE: 03/26/2024 11:45 AM INDICATION: History of CLL. Primary provider: Mik Kim PA-C Supervising provider: Jamshid Webber M.D. Conscious sedation: Administered and monitored by a qualified interventional radiology nurse under supervision of the interventional physician contract assistant. There was continuous monitoring of vital signs including pulse oximetry, end-tidal CO2, and EKG. Total intraservice or tucy-le-syxv sedation time: 5 minutes. TECHNIQUE AND FINDINGS: Informed written consent was obtained. The patient was then brought to the CT scanner suite, placed in the prone position, and [place] protocol was observed to verify correct patient, [...] The needle was then connected to an Anonymous You motorized device to penetrate the cortex. At [...] Procedure Note Jamshid Webber MD - 03/26/[address] [address] PROCEDURE: CT-guided bone marrow aspiration and biopsy DATE OF PROCEDURE: 03/26/2024 11:45 AM INDICATION: History of CLL. Primary provider: Mik Kim PA-C Supervising provider: Jamshid Webber M.D. Conscious sedation: Administered and monitored by a qualifiedinterventional radiology nurse under supervision of the interventionalphysician contract assistant. There was continuous monitoring of vital signsincluding pulse oximetry, end-tidal CO2, and EKG. Total intraservice ooyjcv-wp-gicd sedation time: 5 minutes. TECHNIQUE AND FINDINGS: Informed written consent was obtained. The patient was then brought to theCT scanner suite, placed in the prone position, and [place] protocol wasobserved to verify correct patient, site, [...] (ABNORMAL) CREATININE WHOLE BLOOD (03/26/2024 12:15 PM FELT HAT POUNCING OPERATOR HAND) CREATININE WHOLE BLOOD 0.9 0.6 - 1.3 mg/dL 03/26/2024 12:24 PM FELT HAT POUNCING OPERATOR HAND [facility] GFR ESTIMATE 65(L) >90 ML/MIN/1. 73 M2 03/26/2024 12:24 PM FELT HAT POUNCING OPERATOR HAND [facility] GFR NOTES GFR REFERENCE S: 03/26/2024 12:24 PM FELT HAT POUNCING OPERATOR HAND [facility] Comment: THE ESTIMATED GFR IS CALCULATED [...] TEST WAS PERFORMED: 1215 03/26/2024 12:24 PM FELT HAT POUNCING OPERATOR HAND [facility] 03/26/2024 12:1 5 PM FELT HAT POUNCING OPERATOR HAND us Dawson Linton MD LABORATORY Final Result [facility] [address] [place] [address], [id number] * Flow Cytometry (03/26/2024 11:55 AM FELT HAT POUNCING OPERATOR HAND) FLOW CYTOMETRY RESULTS [facility] Department of Laboratory Medicine [address] [place] [address] , extension [phone] Pathology Report Flow Cytometry Report Name: CICI HUTCHINSON Specimen #: [id number] Age: 2 1945 (Age: 78) Location: [facility] Sex: F Procedure Date: 03/26/2024 Hospital #: [id number] Date Received: 03/26/2024 Date Reported: 04/08/2024 Provider: [...] cells. Result: Tested: CD45, CD19, CD20, Surface [place], Surface Lambda, CD5, CD10, CD38, CD34, CD14, [...] developed and its performance characteristics determined by [facility]. It has not been cleared or approved by the U.S. Food and Drug Administration. However, the use of Analyte Specific Reagents does not require FDA approval. [facility] 03/26/2024 11:5 5 AM FELT HAT POUNCING OPERATOR HAND 03/26/2024 12:15 PM FELT HAT POUNCING OPERATOR HAND Comment:Bone marrow aspirati on (See report [id number]) Judi Arreaga MD PATHOLOGY/CYTOLOGY OR DERABLES Final Result [facility] [address] [place] [address], [id number] * CHROMOSOME ANALYSIS HEMATOLOGIC MALIGNANCY (03/26/2024 11:55 AM FELT HAT POUNCING OPERATOR HAND) SPECIMEN SOURCE BONE MARROW NA AHEP 03/26/2024 3:11 PM FELT HAT POUNCING OPERATOR HAND [facility] CLINICAL INDICATION LYMPHOMA 03/26/2024 3:11 PM FELT HAT POUNCING OPERATOR HAND [facility] PRIOR THERAPY/TRANSPLANT UNK 03/26/2024 3:11 PM FELT HAT POUNCING OPERATOR HAND [facility] PHYSICIAN PHONE 217 3:11 PM FELT HAT POUNCING OPERATOR HAND [facility] Comment: [phone] CLIENT PHONE 217 03/26/2024 3:11 PM FELT HAT POUNCING OPERATOR HAND [facility] Comment: [phone] CHROMOSOME BLOOD REPORT 04/01/19 2:52 PM FELT HAT POUNCING OPERATOR HAND [facility] Comment: Order ID: [id number] Specimen Type: Bone Marrow Clinical Indication: Lymphoma [...] 47,XX,+12[14]/46,XX[6] ASSAY INFORMATION: Method: G-Band (Digital Analysis: [employer]) Cells Counted: 20 Band Level: 400 Cells Analyzed: 20 Cells Karyotyped: 4 Small clonal populations and subtle chromosome abnormalities may not be identified. Irish Brannon, Ph.D., [facility], Real Estate Portfolio Manager, Cytogenetics and Genomics, Electronic Signature: 04/01/2024 3:08 PM For more information on this test, go to [email or web address] Test Performed by Keesha Montoya, Runnit [facility], [address] [place] [address] Mike Santana M.D., Ph.D., Director of Laboratories , [place] [id number] 03/26/2024 11:5 5 AM FELT HAT POUNCING OPERATOR HAND Judi Arreaga MD LABORATORY Final Result [place] [id number] [place], [place] , [place] [phone] [facility] [address] [place] [address], [place] [phone] * XR CHEST PA OR AP 1V (03/26/2024 10:47 AM FELT HAT POUNCING OPERATOR HAND) Anatomical Region Laterality Modality Chest Radiographic Fidelia ging 03/26/2024 11:0 4 AM FELT HAT POUNCING OPERATOR HAND Impressions 03/26/2024 11:14 AM FELT HAT POUNCING OPERATOR HAND IMPRESSION: Cardiomegaly with probable pulmonary congestion/mild interstitial CHF.Patchy opacity in the left midlung laterally which could represent pneumonia. Recommend correlation with any recent outside films if possible. Ordered By: JAMSHID WEBBER Interpreted By: Jamshid Webber MD, 03/26/2024 11:04 AM Narrative 03/26/2024 11:14 AM FELT HAT POUNCING OPERATOR HAND [address] [address] EXAM DESCRIPTION: Chest 1 view EXAM TIME : 03/26/2024 10:44 AM INDICATION: Shortness of breath. History of CLL. Patient apparently has history of ELIER. COMPARISON FILM : CTA chest 08/23/2016. TECHNIQUE: Chest- 1 - view, 1 - images FINDINGS: Upright AP film obtained. Interval removal of previously present Suvkde-b-Vrri. Mild cardiomegaly. Calcified aortic knob. Central pulmonary congestion with interstitial changes suggestive of CHF. In addition there is patchy groundglass opacity in the left midlung laterally which could represent pneumonia. Lungs questionable very minimal blunting left costophrenic angle, no significant size effusions. No pneumothorax. No acute bony abnormality. Procedure Note Jamshid Webber MD - 03/26/[address] [address] EXAM DESCRIPTION: Chest 1 view EXAM TIME : 03/26/2024 10:44 AM INDICATION: Shortness of breath. History of CLL. Patient apparently hashistory of ELIER. COMPARISON FILM : CTA chest 08/23/2016. TECHNIQUE: Chest- 1 - view, 1 - images FINDINGS: Upright AP film obtained. Interval removal of previously udxnslyMafhpq-d-Kqny. Mild cardiomegaly. Calcified aortic knob. Centralpulmonary congestion [...] * TYPE & SCREEN (03/26/2024 9:58 AM FELT HAT POUNCING OPERATOR HAND) UNITS ORDERED 1 03/26/2024 10:20 AM FELT HAT POUNCING OPERATOR HAND [facility] ABO/RH A POSITIVE 03/26/2024 10:54 AM FELT HAT POUNCING OPERATOR HAND [facility] ANTIBODY SCREEN NEGATIVE 03/26/2024 10:54 AM FELT HAT POUNCING OPERATOR HAND [facility] SAMPLE EXPIRATION 03/29/2024,2 359 03/26/2024 10:09 AM FELT HAT POUNCING OPERATOR HAND [facility] 03/26/2024 9:58 AM FELT HAT POUNCING OPERATOR HAND Mik Kim PA-C BLOOD BANK TEST ORDERABLES Final Result [facility] [address] [place] [address], [place] [phone] * (ABNORMAL) PROTIME/INR, VENOUS (PROTHROMBIN TIME) (03/26/2024 8:28 AM FELT HAT POUNCING OPERATOR HAND) PROTIME 14.3(H) 9.4 - 12.5 SEC 03/26/2024 9:06 AM [facility] INR 1.2(H) 0.8 - 1.1 03/26/2024 9:06 AM [facility] 03/26/2024 8:28 AM FELT HAT POUNCING OPERATOR HAND Dawson Linton MD LABORATORY Final Result [facility] [address] [place] [address], [id number] * (ABNORMAL) CBC W/DIFF AUTOMATED (03/26/2024 8:28 AM FELT HAT POUNCING OPERATOR HAND) Pathologist [facility] WBC 6.16 4.00 - 10.80 x10'3/uL 03/26/2024 9:26 AM [facility] RBC 2.39(L) 4.10 - 5.40 x10'6/uL 03/26/2024 9:26 AM [facility] HGB 6.7(LL) 12.0 - 16.0 G/DL 03/26/2024 9:26 AM [facility] Comment: This result has been called to [id number] IN RADIOLOGY by [id number] on 03/26/2024 09:24:23, and has been read back. HCT 21.8(L) 36.0 - 47.0 % 03/26/2024 9:26 AM [facility] MCV 91.2 78.0 - 100.0 FL 03/26/2024 9:26 AM [facility] MCH 28.0 27.0 - 31.0 PG 03/26/2024 9:26 AM [facility] MCHC 30.7(L) 33.0 - 36.0 G/DL 03/26/2024 9:26 AM [facility] RDW 17.1(H) 11.5 - 14.5 % 03/26/2024 9:26 AM [facility] PLT 48(L) 150 - 350 x10'3/uL 03/26/2024 9:26 AM [facility] MPV 10.8(H) 7.4 - 10.4 FL 03/26/2024 9:26 AM [facility] DIFFERENTIAL TYPE MANUAL DIFFERENTIAL 03/26/2024 9:29 AM [facility] NRBC % 0.0 % 03/26/2024 9:29 AM [facility] SEG NEUTROPHILS 70 % 9:29 AM [facility] LYMPHOCYTES 22 % 03/26/2024 9:29 AM [facility] MONOCYTES 4 % 03/26/2024 9:29 AM [facility] EOSINOPHILS 3 % 03/26/2024 9:29 AM [facility] BASOPHILS 1 % 03/26/2024 9:29 AM [facility] ABS. NEUTROPHILS 4.31 1.60 - 8.30 x10'3/uL 03/26/2024 9:29 AM [facility] ABS. LYMPHOCYTES 1.36 0.80 - 4.70 x10'3/uL 03/26/2024 9:29 AM [facility] ABS. MONOCYTES 0.25 0.00 - 1.50 x10'3/uL 03/26/2024 9:29 AM [facility] ABS. EOSINOPHILS 0.18 0.00 - 0.40 x10'3/uL 03/26/2024 9:29 AM [facility] ABS. BASOPHILS 0.06 0.00 - 0.20 x10'3/uL 03/26/2024 9:29 AM [facility] ABS. NUCLEATED RBC'S 0.00 0.00 - 0.01 x10'3/uL 03/26/2024 9:29 AM [facility] RBC MORPHOLOGY SLIDE REVIEWED 2024 9:29 AM FELT HAT POUNCING OPERATOR HAND [facility] ANISO SLIGHT 03/26/2024 9:29 AM FELT HAT POUNCING OPERATOR HAND [facility] POIKLO SLIGHT 03/26/2024 9:29 AM FELT HAT POUNCING OPERATOR HAND [facility] HYPOCHROMASIA SLIGHT 03/26/2024 9:29 AM FELT HAT POUNCING OPERATOR HAND [facility] OVALOCYTES PRESENT 03/26/2024 9:29 AM FELT HAT POUNCING OPERATOR HAND [facility] TEAR DROP PRESENT 03/26/2024 9:29 AM FELT HAT POUNCING OPERATOR HAND [facility] PLT EST. DECREASED 03/26/2024 9:29 AM [facility] 03/26/2024 8:28 AM FELT HAT POUNCING OPERATOR HAND Dawson Linton MD LABORATORY Final Result Performing Organization Address City/State/[facility] Co de Phone Number [facility] [address] [place] [address], [phone] * Pathology (03/26/2024 12:00 AM FELT HAT POUNCING OPERATOR HAND) PATHOLOGY [facility] Department of Laboratory Medicine [address] [place] [address] , extension [phone] Pathology Report Addendum Bone Marrow Report Name: CICI HUTCHINSON Specimen #: [id number] Age: 2 1945 (Age: 78) Location: [facility] Sex: F Procedure Date: 03/26/2024 Hospital #: [id number] Date Received: 03/26/2024 Date Reported: 04/08/2024 Provider: JUDI ARREAGA MD Source: A: Bone marrow aspiration right iliac B: Bone marrow biopsy right iliac Clinical History: Lymphoma FINAL DIAGNOSIS: A,B) Bone marrow, right iliac crest, aspirate clot section and smear review: -Lambda monotypic B cells, consistent with SLL/CLL, comprising approximately 10-20% of the marrow cellularity, see comment -Background marrow shows mildly increased cellularity and trilineage hematopoiesis -Decreased iron stores, score trace -Normochromic normocytic anemia -Thrombocytopenia Diagnosis Comment: The current specimen demonstrates increased B cells, which by flow cytometry and immunohistochemistry are consistent with a diagnosis of SLL/CLL. They comprise between 10 and 20% of the marrow cellularity. The patient has a previous diagnosis in 2018 of a similar finding in the marrow at the [facility], see their report [id number]. There is no evidence of transformation in this patient. The peripheral blood does not demonstrate an increase in lymphocytes. Correlation with clinical information necessary, such as enlarged lymph nodes or lymphoma involvement of other tissues to to differentiate with certainty between small lymphocytic lymphoma and chronic lymphocytic leukemia. A minor involvement of monoclonal B cells in the peripheral blood cannot be excluded in this patient.. The marrow also demonstrated a decreased iron stores and mildly decreased erythropoiesis. The possibility of concurrent iron deficiency should be explored clinically in this patient. Cytogenetics are pending to help exclude the possibility of a low-grade myelodysplastic syndrome in this patient. BONE MARROW REPORT The following specimens were interpreted to arrive at the above diagnosis: peripheral blood smear, bone marrow aspirate, touch preparation, clot section, and decalcified trephine biopsy CBC data and smear review (200 cells): WBC: 6.16 x K/uL; Hgb: 6.7 g/dL; Hct: 21.8%; MCV: 91.2 fl; Plt: 48 K/uL ABS NEUT: 4.31; ABS LYMPH: 1.36 Blood smear findings: Review of the peripheral blood smear shows a normochromic normocytic anemia with limited hypochromic forms. The total white cell count is within normal limits. The granulocytes are normally segmented and granulated without increased in immature forms. The lymphocytes present are normal in number and demonstrate no significant abnormalities, with rare forms showing blocky chromatin. Platelets are decreased in number and otherwise morphologically unremarkable Specimen quality: Spicules are present and the stain is of good quality. Bone marrow aspirate smear differential : Blasts: 1% Promyelocytes: 4% Myelocytes: 5% Metamyelocytes: 10% Bands/neutrophils: 40% Lymphocyte: 16% Monocytes: 0% Eosinophils: 3% Basophils: 0% Erythroids: 19% Plasma cells: 2% M:E Ratio: The myeloid to erythroid ratio is 4:1. Erythropoiesis: Erythropoiesis is mildly decreased with a minimal left shift. No atypical forms are noted. Granulopoiesis: Granulopoiesis is unremarkable not increase in blasts or other atypical features. Megakaryocytes: Dysmegakaryopoiesis is unremarkable. Lymphocytes: Lymphocytes are increased in number with numerous small forms demonstrating high NC ratio and small nuclei. They comprise approximately 20% of the overall cellularity. No population of large atypical lymphocytes is appreciated. Plasma cells: Occasional unremarkable plasma cells identified. Iron stain: Iron stain is decreased score trace. No ring sideroblasts are noted. The iron control shows appropriate reactivity. Biopsy findings: Marrow cellularity is increased with clusters of lymphocytes present. Marrow cellularity is approximately 50%. Myeloid to erythroid ratio is approximately 4: 1. No evidence of transformation including large typical lymphocytes are identified morphologically. Immunohistochemistry is performed for CD3, CD20 and CD45. Noted are large clusters of small CD20 and CD45 positive B cells in the marrow comprising approximately 20% of the overall cellularity Flow cytometric analysis (marrow aspirate): Flow cytometric analysis demonstrates a lambda monotypic population of B cells which demonstrate coexpression of CD5 and CD23. They comprise approximately 9% of the total viable events. See separate report for details. Cytogenetics/FISH: Performed and resulted in a separate report. The above report complies, in slightly modified form, with the guidelines of the [employer] for the report of cancer specimens. Gross Description: A. Received in B-plus fixative, labeled with a patient label and as BM KG, is a 2.5 x 1.4 x 0.4 cm portion of red-brown clot material. The specimen is entirely submitted in cassette A1. B. Received in B-plus fixative, labeled with a patient label and as BX KG, is a needle core biopsy of rodriges-brown bony tissue that is 1.1 cm in greatest dimension. The specimen is entirely submitted in cassette B1 following decalcification in Immunodecal. Gross examination (when applicable) was performed at [facility], [address] [place] [address]. This case was interpreted and signed out at [facility], [address] [place] [address]. All immunohistochemical and histochemical tests were developed by and performed at [facility], [address] [place] [address]. All tests reported here have not been cleared or approved by the U.S. Food and Drug Administration (FDA). This laboratory is regulated under CLIA as qualified to perform high-complexity testing. These tests are used for clinical purposes. They should not be regarded as investigational or for research. Positive and negative controls show appropriate reactivity. Electronically Signed Out JOSE EDUARDO TIPTON MD Addenda/Procedures Addendum Date Ordered: 03/26/2024 Status: Complete Date Complete: 03/26/2024 By: ZACK BEE Date Reported: [facility] 03/26/2024 03/26/2024 1:3 0 PM FELT HAT POUNCING OPERATOR HAND Comment:Bone marrow aspirati on right iliac&Bone marrow biopsy right iliac us Judi Arreaga MD PATHOLOGY/CYTOLOGY OR DERABLES Final Result [facility] [address] [place] [address], [phone] from Last 3 Months Insurance [facility] MEDICARE Care Teams Automotive Fuel Systems Converter Relationship Specialty Start Date End Date Non-Staff, Provider PCP - General UNKNOWN PHYSICIAN SPECIALTY 12/25/23
[2024-04-24 15:32] LABS: Hematocrit 27.4 % (35.0-42.0); Hemoglobin 8.3 g/dL (11.7-13.8)
--- OUTSIDE RECORDS SUMMARY | 2024-10-07 09:10 | XMS_ITS ---
Author Organization [facility] Address [address] [place], [place] [id number] Care Team Providers Care Choke Reamer Name Role Phone CHI GIBSON Unavailable [phone] Jonathon Nguyen Unavailable Unavailable CLIF IRIZARRY Unavailable [phone] REASON FOR VISIT *General care Encounters Encounter Location Date Provider Diagnosis [address] [id number] 10/07/2024 CLIF IRIZARRY Plan Of Treatment No Information Progress Notes * CICI HUTCHINSON KDOB:[birth year] (79 yo F)Acc No.[id number]:10/07/2024 Patient: MARIA ELENA DEANLIAndres Mar Provider: Carlos IRIZARRY :1945 A ge:79 Y S ex:Female Date:10/07/2024 Address:[address] [place], [place] [id number] Subjective: * Chief Complaints: * 1 . *General care. * Medical History: Objective: * Vitals: Assessment: Plan: * Treatment: * Billing Information: * Visit Code: * Procedure Codes: * Electronic signature of AURELIO IRIZARRY DPM on 10/25/2024 at 09:10 AM CDT Sign off status: Pending * Provider: Carlos IRIZARRY Date: 10/07/2024 Generated for Printi ng/Faxing/eTransmitting on: 10/25/2024 09:10 AM CDT
--- OUTSIDE RECORDS SUMMARY | 2024-10-25 09:10 | XMS_ITS | Patient Health Record ---
Author Organization [facility] Address [address] [place], [place] [address] Care Team Providers Care Co Founder And Director Name Role Phone CHI GIBSON Unavailable [phone] WendyJonathon clay Unavailable Unavailable ESTHELAJEMAL COELLOUR Unavailable [phone] CLIF IRIZARRY Unavailable [phone] Allergies No Known Allergies Reason For Referral No Information Medications Medication SIG (Take, Route, Frequency, Duration) Notes Start Date End Date Status aspirin 81 MG Delayed Release Oral Tablet [Airseed Aspirin] ORAL aspirin 81 MG Delayed Release Oral Tablet [Airseed Aspirin]Original Medicationaspirin 81 MG Delayed Release Oral Tablet [Airseed Aspirin] *Reorder from [employer] for eRx and Interaction Alerts* 07/20/2012 Active Glucosamine Sulfate 500 MG Oral Tablet ORAL glucosamine sulfate 500 MG Oral TabletOriginal Medicationglucosamine sulfate 500 MG Oral Tablet *Reorder from [employer] for eRx and Interaction Alerts* 07/20/2012 Active chondroitin sulfates 250 MG Oral Capsule ORAL chondroitin sulfates 250 MG Oral CapsuleOriginal Medicationchondroitin sulfates 250 MG Oral Capsule *Reorder from [employer] for eRx and Interaction Alerts* 07/20/2012 Active Magnesium Gluconate 550 MG Oral Tablet ORAL magnesium gluconate 550 MG Oral TabletOriginal Medicationmagnesium gluconate 550 MG Oral Tablet *Reorder from [employer] for eRx and Interaction Alerts* 07/20/2012 Active Immunizations Vaccine Route Administration Date Status Comme nts Influenza, high dose seasonal Unknown 12/19/2022 Admini stered Vital Signs Height-cm 149.86 cm 07/29/2024 Weight-kg 69.85 kg 07/29/2024 Height 59.00 in 07/29/2024 Weight 154 lbs 07/29/2024 BMI 31.1 kg/m2 07/29/2024 Encounters Encounter Location Date Provider Diagnosis [address] [id number] 07/29/2024 CLIF IRIZARRY Tinea unguium B35.1 ; Pain in right toe(s) M79.674 ; Pain in left toe(s) M79.675 ; 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, bilateral legs I70.203 and Type 2 diabetes mellitus with other circulatory complications E11.[address] [id number] 11/13/2023 BILL PEREZ Tinea unguium B35.1 ; Pain in right toe(s) M79.674 ; Pain in left toe(s) M79.675 ; Other hammer toe(s) (acquired), right foot M20.41 ; Other hammer toe(s) (acquired), left foot M20.42 ; 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
== END 2024-04-24 10:01 | disposition home or self-care (01) ==
PROVIDERS: Internal Medicine Hematology; PCP Internal Medicine; Visit Provider Internal Medicine
DX: D64.9 Anemia, unspecified (principal)
CPT/HCPCS: 36415; 85014; 85018; J7040

== ENCOUNTER 2024-04-24 10:25 | Outpatient (RCR) | payer MEDICARE, SELFPAY ==
--- OUTSIDE RECORDS SUMMARY | 2024-04-22 15:47 | XMS_ITS ---
Author Organization [facility] Address [address] [place], [place] [address] Care Team Providers Care Church History Professor Name Role Phone CHI GIBSON Unavailable [phone] Jonathon Nguyen Unavailable Unavailable REASON FOR VISIT *General care Encounters Encounter Location Date Provider Diagnosis [address] [id number] 04/22/2024 CHI GIBSON Plan Of Treatment No Information Progress Notes * CICI HUTCHINSON KDOB:[birth year] (78 yo F)Acc No.[id number]:04/22/2024 Patient: MARIA ELENA DEANLIAndres Mar Provider: Andres Gibson DPM :1945 A ge:78 Y S ex:Female Date:04/22/2024 Address:[address] [place] [address], [address] Subjective: * Chief Complaints: * 1 . *General care. * Medical History: Objective: * Vitals: Assessment: Plan: * Treatment: * Billing Information: * Visit Code: * Procedure Codes: * Electronic signature of CHI GIBSON DPM on 04/22/2024 at 03:46 PM DECK MOLDER Sign off status: Pending * Provider: Andres Gibson DPM Date: 04/22/2024 Generated for Printi ng/Faxing/eTransmitting on: 0 04/22/2024 03:46 PM DECK MOLDER
--- OUTSIDE RECORDS SUMMARY | 2024-04-22 15:47 | XMS_ITS | Encounter Summary ---
Author Organization [facility] Address [facility] [place] [address] Care Team Providers Care Bench Tool Maker Name Role Phone Non-Staff, Provider Primary Care Provider Luis troncoso Encounter Details Date Type Department Care Team (Late st Contact Info) Description 03/27/2024 [facility] Documentation [address] [place] [address] Pema Kinsey MD [address] [place], [place] [address] Social History Tobacco Use Types Packs/Day Years Used Date Smoking Tobacco: Never Smokeless Tobacco: Never Alcohol Use Standard Drinks/Week Comments Not Currently 0 (1 standard drink = 0.6 oz pur e alcohol) Comments Unknown Sex and Gender Information Value Date Recorded Sex Assigned at Female 03/26/2024 8:00 AM CONTROL CLERK 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
--- OUTSIDE RECORDS SUMMARY | 2024-04-22 15:47 | XMS_ITS | Encounter Summary ---
Author Organization [facility] Address [facility] [place] [address] Care Team Providers Care School Bus Inspector Name Role Phone Non-Staff, Provider Primary Care Provider Luis troncoso Reason for Visit * Reason Onset Date Comments Preprocedure Call 03/19/[address] Nguyen's office and they will fax over signed office notes from 03/16/24 appt Encounter Details Date Type Department Care Team (Latest Contact Info) Description 03/19/2024 Pre-Procedure Call [facility] Interventional Radiology [address] [place] [address] Randee Alas RN Preprocedure Call (Spoke with [...] Sex Assigned at Female 03/26/2024 8:00 AM DATA PROCESSING SYSTEMS PROJECT PLANNER Legal Sex Female 11:03 PM DATA PROCESSING SYSTEMS PROJECT PLANNER Gender Identity Not on file Sexual Orientation [...] on filedocumented in this encounter Care Teams School Bus Inspector Relationship Specialty Start Date End Date Non-Staff, Provider PCP - General UNKNOWN PHYSICIAN SPECIALTY 12/25/23 documented as of this encounter
--- OUTSIDE RECORDS SUMMARY | 2024-04-22 15:47 | XMS_ITS | Clinical Summary ---
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 Name Role Phone Non-Staff, Provider Primary Care [...] Date Type Department Care Team Description 03/27/2024 [facility] [place] [address] [place] [address] Judi Arreaga MD 03/26/2024 8:03 AM MAP CLERK - 03/26/2024 11:59 PM MAP CLERK Hospital Encounter [facility] [address] [place] [address] Judi Arreaga MD Discharge Disposition: Home or Self Care (Routine Discharge) 03/26/2024 8:02 AM MAP CLERK Hospital Encounter [facility] [address] [place] [address] Dawson Linton MD Discharge Disposition: Home or Self Care (Routine Discharge) 03/26/2024 Travel 03/19/2024 Pre-Procedure Call [facility] Interventional Radiology [address] [place] [address] Randee Alas RN Preprocedure Call (Spoke with Dr. Nguyen's office and they will fax over signed office notes from 03/16/24 appt) 03/19/2024 Telephone [facility] Interventional Radiology [address] [place] [address] Katlyn Thurman RN Preprocedure Call (Son called to see if patient can have bone marrow biopsy appt earlier in the morning. Appt moved to 0830 lab, 0900 hold time and 1000 procedure. Son aware of changed time, npo at midnight and will need uke driver for the way home. Son stated patient has been seen by Dr. Nguyen in [place] on 03/16. ) from Last 3 Months Social History Tobacco Use Types Packs/Day Years Used Date Smoking Tobacco: Never Smokeless Tobacco: Never Tobacco Cessation:Counseling Given: Not Answered Alcohol Use Standard Drinks/Week Comments Not Currently 0 (1 standard drink = 0.6 oz pur e alcohol) Comments Unknown Sex and Gender Information Value Date Recorded Sex Assigned at Female 03/26/2024 8:00 AM MAP CLERK Legal Sex Female 11:03 PM MAP CLERK Gender Identity Not on file Sexual Orientation Not on file Last Filed Vital Signs Vital Sign Reading Time Taken Comments Blood Pressure 137/48 03/26/2024 1:05 PM MAP CLERK Pulse 65 03/26/2024 1:05 PM MAP CLERK Temperature 35.7 C (96.3 F) 12/26/2023 9:21 AM CDT Respiratory Rate 24 03/26/2024 1:05 PM MAP CLERK Oxygen Saturation 94% 03/26/2024 1:18 PM MAP CLERK Inhaled Oxygen Concentration - - Weight 68 kg (150 lb) 03/26/2024 9:21 AM MAP CLERK Height 149.9 cm (4' 11 ) 03/26/2024 9:21 AM MAP CLERK Body Mass Index 30.3 03/26/2024 9:21 AM MAP CLERK Plan of Treatment Health Maintenance Due Date [...] CHEST+ABD+PEL W CON Routine 03/26/2024 12:20 PM MAP CLERK Lymphoma, small lymphocytic ([facility]/HCC) CT GD ASPIR+BX BONE MARROW Routine 03/26/2024 12:15 PM MAP CLERK Lymphoma, small lymphocytic ([facility] HHS/HCC) CREATININE WHOLE BLOOD Routine 03/26/2024 12:15 PM MAP CLERK FLOW CYTOMETRY Routine 03/26/2024 11:55 AM MAP CLERK CHROMOSOME ANALYSIS HEMATOLOGIC MALIGNANCY Routine 03/26/2024 11:55 AM MAP CLERK XR CHEST PA OR AP 1V STAT 03/26/2024 10:47 AM MAP CLERK Lymphoma, small lymphocytic (CMS/HCC HHS/HCC) TYPE & SCREEN STAT 03/26/2024 9:58 AM MAP CLERK Lymphoma, small lymphocytic (CMS/HCC HHS/HCC) CBC W/DIFF AUTOMATED Routine 03/26/2024 8:28 AM MAP CLERK Lymphoma, small lymphocytic (CMS/HCC HHS/HCC) PROTHROMBIN TIME, VENOUS Routine 03/26/2024 8:28 AM MAP CLERK Lymphoma, small lymphocytic (CMS/HCC HHS/HCC) PATHOLOGY Routine 03/26/2024 12:00 AM MAP CLERK from Last 3 Months Results * CT CHEST+ABD+PEL W CON (03/26/2024 12:20 PM MAP CLERK) Anatomical Region Laterality Modality Chest, Abdomen, Pelvis Computed Tomography 04/04/2024 9:43 AM MAP CLERK Impressions 04/04/2024 10:02 AM MAP CLERK Impression: 1. Mediastinal and hilar lymphadenopathy as [...] and nonemergent findings as above. Referred By: MOHAMMAD ABISAI WHITLEY Interpreted By: Rei Gaines MD, 04/04/2024 9:43 AM Narrative 04/04/2024 10:02 AM MAP CLERK [address] [address] Examination: CT chest, abdomen and pelvis with [...] Procedure Note Rei Gaines MD - 04/04/[address] [address] Examination: CT chest, abdomen and pelvis with [...] left and trace right pleural effusions. Irregular sberxakqxhsrog-mx-akg opacities are present within both lungs, most [...] By: Rei Gaines MD, 04/04/2024 9:43 AM Judi Arreaga MD CT Final Result * CT GD ASPIR+BX BONE MARROW (03/26/2024 12:15 PM MAP CLERK) Anatomical Region Laterality Modality Bone Computed Tomogra phy, Radiographic Imaging 03/26/2024 4:31 PM MAP CLERK Impressions 03/26/2024 5:05 PM MAP CLERK IMPRESSION: CT-guided percutaneous bone marrow biopsy, as described. The attending radiologist, Dr. Webber, was in the department for all critical portions of the procedure, has reviewed the images, and agrees with the content of this report. Dictated By: MONA Eric on 03/26/2024 4:31 PM Ordered By: JUDI ARREAGA Interpreted By: MONA Eric, 03/26/2024 4:31 PM Narrative 03/26/2024 5:05 PM MAP CLERK [address] [address] PROCEDURE: CT-guided bone marrow aspiration and biopsy DATE OF PROCEDURE: 03/26/2024 11:45 AM INDICATION: History of CLL. Primary provider: Mik Kim PA-C Supervising provider: Jamshid Webber M.D. Conscious sedation: Administered and monitored by a qualified interventional radiology nurse under supervision of the interventional physician assistant commissioner. There was continuous monitoring of vital signs including pulse oximetry, end-tidal CO2, and EKG. Total intraservice or lusf-zv-qltf sedation time: 5 minutes. TECHNIQUE AND FINDINGS: Informed written consent was obtained. The patient was then brought to the CT scanner suite, placed in the prone position, and [place] protocol was observed to verify correct patient, [...] The needle was then connected to an [employer] motorized device to penetrate the cortex. At [...] Procedure Note Jamshid Webber MD - 03/26/[address] [address] PROCEDURE: CT-guided bone marrow aspiration and biopsy DATE OF PROCEDURE: 03/26/2024 11:45 AM INDICATION: History of CLL. Primary provider: Mik Kim PA-C Supervising provider: Jamshid Webber M.D. Conscious sedation: Administered and monitored by a qualifiedinterventional radiology nurse under supervision of the interventionalphysician assistant commissioner. There was continuous monitoring of vital signsincluding pulse oximetry, end-tidal CO2, and EKG. Total intraservice dsiqur-go-cqef sedation time: 5 minutes. TECHNIQUE AND FINDINGS: Informed written consent was obtained. The patient was then brought to theCT scanner suite, placed in the prone position, and [place] protocol wasobserved to verify correct patient, site, [...] visualization. The needle was then connected to [employer] motorized device to penetrate the cortex. At [...] (ABNORMAL) CREATININE WHOLE BLOOD (03/26/2024 12:15 PM MAP CLERK) CREATININE WHOLE BLOOD 0.9 0.6 - 1.3 mg/dL 03/26/2024 12:24 PM MAP CLERK [facility] GFR ESTIMATE 65(L) >90 ML/MIN/1. 73 M2 03/26/2024 12:24 PM MAP CLERK [facility] GFR NOTES GFR REFERENCE S: 03/26/2024 12:24 PM MAP CLERK [facility] Comment: THE ESTIMATED GFR IS CALCULATED [...] TEST WAS PERFORMED: 1215 03/26/2024 12:24 PM MAP CLERK [facility] 03/26/2024 12:1 5 PM MAP CLERK us Dawson Linton MD LABORATORY Final Result [facility] [address] [place] [id number], [id number] * Flow Cytometry (03/26/2024 11:55 AM MAP CLERK) FLOW CYTOMETRY RESULTS [facility] Department of Laboratory Medicine [address] [place] [address] , extension [phone] Pathology Report Flow Cytometry Report Name: CICI HUTCHINSON Specimen #: [id number] Age: 2 1945 (Age: 78) Location: [facility] [[email or web address] Sex: F Procedure Date: 03/26/2024 Hospital #: [id number] Date Received: 03/26/2024 Date Reported: 04/08/2024 Provider: JUDI ARREAGA MD Source: Bone marrow aspiration (See report [id number]) FINAL DIAGNOSIS: Bone marrow, flow symmetric analysis: -Lambda monotypic B cells demonstrating coexpression of CD5 and CD23, see comment Diagnosis Comment: Noted is a population of lambda monotypic B cells which demonstrate coexpression of CD5 and C23. These findings are suggestive the possibility of small thick lymphoma/chronic lymphocytic leukemia. See separate bone marrow report for details and morphologic correlation. They comprise approximately 9% of the overall population of cells. Result: Tested: CD45, CD19, CD20, Surface English, Surface Lambda, CD5, CD10, CD38, CD34, CD14, CD117, CD4, CD8, CD3, CD7, CD56, CD13, CD33, CD64, CD11b, HLA-DR, CD23, CD200. These results represent CD antigen expression on the abnormal population (9% of total cellularity). Test Result sKappa negative sLambda positive CD3 negative CD4 negative CD5 dim positive CD7 negative CD8 negative CD10 negative CD11b negative CD13 negative CD14 negative CD19 positive CD20 positive CD23 dim positive CD33 negative CD34 negative CD38 negative CD45 positive CD56 negative CD64 negative CD117 negative CD200 dim positive HLA-DR negative Electronically Signed Out JOSE EDUARDO TIPTON MD This test was developed and its performance characteristics determined by [facility]. It has not been cleared or approved by the U.S. Food and Drug Administration. However, the use of Analyte Specific Reagents does not require FDA approval. [facility] 03/26/2024 11:5 5 AM MAP CLERK 03/26/2024 12:15 PM MAP CLERK Comment:Bone marrow aspirati on (See report [id number]) Judi Arreaga MD PATHOLOGY/CYTOLOGY OR DERABLES Final Result [facility] [address] [place] [address], [id number] * CHROMOSOME ANALYSIS HEMATOLOGIC MALIGNANCY (03/26/2024 11:55 AM MAP CLERK) SPECIMEN SOURCE BONE MARROW NA AHEP 03/26/2024 3:11 PM MAP CLERK [facility] CLINICAL INDICATION LYMPHOMA 03/26/2024 3:11 PM MAP CLERK [facility] PRIOR THERAPY/TRANSPLANT UNK 03/26/2024 3:11 PM MAP CLERK [facility] PHYSICIAN PHONE [phone] 3:11 PM MAP CLERK [facility] Comment: [phone] CLIENT PHONE 217 03/26/2024 3:11 PM MAP CLERK [facility] Comment: [phone] CHROMOSOME BLOOD REPORT 04/01/19 2:52 PM MAP CLERK [employer] KRISTEN VELAZQUEZ Comment: Order ID: [id number] Specimen Type: Bone Marrow Clinical Indication: Lymphoma [...] 47,XX,+12[14]/46,XX[6] ASSAY INFORMATION: Method: G-Band (Digital Analysis: [email or web address]) Cells Counted: 20 Band Level: 400 Cells Analyzed: 20 Cells Karyotyped: 4 Small clonal populations and subtle chromosome abnormalities may not be identified. Irish Brannon, Ph.D., [facility], [employer], Cytogenetics and Genomics, Electronic Signature: 04/01/2024 3:08 PM For more information on this test, go to [email or web address]/faq/Ca-chromosome Test Performed by Keesha Montoya, [employer] [facility], [id number] [place] [address] Mike Santana M.D., Ph.D., Director of Laboratories , [place] [id number] 03/26/2024 11:5 5 AM MAP CLERK Judi Arreaga MD LABORATORY Final Result [employer] [id number] [place] [address], [place] [phone] [facility] [address] [place] [address], [place] [phone] [phone] * XR CHEST PA OR AP 1V (03/26/2024 10:47 AM MAP CLERK) Anatomical Region Laterality Modality Chest Radiographic Fidelia ging 03/26/2024 11:0 4 AM MAP CLERK Impressions 03/26/2024 11:14 AM MAP CLERK IMPRESSION: Cardiomegaly with probable pulmonary congestion/mild interstitial CHF.Patchy opacity in the left midlung laterally which could represent pneumonia. Recommend correlation with any recent outside films if possible. Ordered By: JAMSHID WEBBER Interpreted By: Jamshid Webber MD, 03/26/2024 11:04 AM Narrative 03/26/2024 11:14 AM MAP CLERK [address] [address] EXAM DESCRIPTION: Chest 1 view EXAM TIME : 03/26/2024 10:44 AM INDICATION: Shortness of breath. History of CLL. Patient apparently has history of ELIER. COMPARISON FILM : CTA chest 08/23/2016. TECHNIQUE: Chest- 1 - view, 1 - images FINDINGS: Upright AP film obtained. Interval removal of previously present Fuebvo-y-Gmen. Mild cardiomegaly. Calcified aortic knob. Central pulmonary congestion with interstitial changes suggestive of CHF. In addition there is patchy groundglass opacity in the left midlung laterally which could represent pneumonia. Lungs questionable very minimal blunting left costophrenic angle, no significant size effusions. No pneumothorax. No acute bony abnormality. Procedure Note Jamshid Webber MD - 03/26/[address] [address] EXAM DESCRIPTION: Chest 1 view EXAM TIME : 03/26/2024 10:44 AM INDICATION: Shortness of breath. History of CLL. Patient apparently hashistory of ELIER. COMPARISON FILM : CTA chest 08/23/2016. TECHNIQUE: Chest- 1 - view, 1 - images FINDINGS: Upright AP film obtained. Interval removal of previously yaonndrKauqpb-j-Dhvq. Mild cardiomegaly. Calcified aortic knob. Centralpulmonary congestion [...] * TYPE & SCREEN (03/26/2024 9:58 AM MAP CLERK) UNITS ORDERED 1 03/26/2024 10:20 AM MAP CLERK [facility] ABO/RH A POSITIVE 03/26/2024 10:54 AM MAP CLERK [facility] ANTIBODY SCREEN NEGATIVE 03/26/2024 10:54 AM MAP CLERK [facility] SAMPLE EXPIRATION 03/29/2024,2 359 03/26/2024 10:09 AM MAP CLERK [facility] 03/26/2024 9:58 AM MAP CLERK Mik Kim PA-C BLOOD BANK TEST ORDERABLES Final Result [facility] [address] [place] [address], [id number] * (ABNORMAL) PROTIME/INR, VENOUS (PROTHROMBIN TIME) (03/26/2024 8:28 AM MAP CLERK) PROTIME 14.3(H) 9.4 - 12.5 SEC 03/26/2024 9:06 AM [facility] INR 1.2(H) 0.8 - 1.1 03/26/2024 9:06 AM [facility] 03/26/2024 8:28 AM MAP CLERK Dawson Linton MD LABORATORY Final Result [facility] [address] [place] [address], [id number] * (ABNORMAL) CBC W/DIFF AUTOMATED (03/26/2024 8:28 AM MAP CLERK) Pathologist [facility] WBC 6.16 4.00 - 10.80 x10'3/uL 03/26/2024 9:26 AM [facility] RBC 2.39(L) 4.10 - 5.40 x10'6/uL 03/26/2024 9:26 AM [facility] HGB 6.7(LL) 12.0 - 16.0 G/DL 03/26/2024 9:26 AM [facility] Comment: This result has been called to [id number] IN RADIOLOGY by [id number] on 03/26/2024 09:24:23, and has been read back. HCT 21.8(L) 36.0 - 47.0 % 03/26/2024 9:26 AM [facility] MCV 91.2 78.0 - 100.0 FL 03/26/2024 9:26 AM [facility] MCH 28.0 27.0 - 31.0 PG 03/26/2024 9:26 AM [facility] MCHC 30.7(L) 33.0 - 36.0 G/DL 03/26/2024 9:26 AM [facility] RDW 17.1(H) 11.5 - 14.5 % 03/26/2024 9:26 AM [facility] PLT 48(L) 150 - 350 x10'3/uL 03/26/2024 9:26 AM [facility] MPV 10.8(H) 7.4 - 10.4 FL 03/26/2024 9:26 AM [facility] DIFFERENTIAL TYPE MANUAL DIFFERENTIAL 03/26/2024 9:29 AM [facility] NRBC % 0.0 % 03/26/2024 9:29 AM [facility] SEG NEUTROPHILS 70 % 9:29 AM [facility] LYMPHOCYTES 22 % 03/26/2024 9:29 AM [facility] MONOCYTES 4 % 03/26/2024 9:29 AM [facility] EOSINOPHILS 3 % 03/26/2024 9:29 AM [facility] BASOPHILS 1 % 03/26/2024 9:29 AM [facility] ABS. NEUTROPHILS 4.31 1.60 - 8.30 x10'3/uL 03/26/2024 9:29 AM [facility] ABS. LYMPHOCYTES 1.36 0.80 - 4.70 x10'3/uL 03/26/2024 9:29 AM [facility] ABS. MONOCYTES 0.25 0.00 - 1.50 x10'3/uL 03/26/2024 9:29 AM [facility] ABS. EOSINOPHILS 0.18 0.00 - 0.40 x10'3/uL 03/26/2024 9:29 AM [facility] ABS. BASOPHILS 0.06 0.00 - 0.20 x10'3/uL 03/26/2024 9:29 AM [facility] ABS. NUCLEATED RBC'S 0.00 0.00 - 0.01 x10'3/uL 03/26/2024 9:29 AM [facility] RBC MORPHOLOGY SLIDE REVIEWED 2024 9:29 AM [facility] ANISO SLIGHT 03/26/2024 9:29 AM [facility] POIKLO SLIGHT 03/26/2024 9:29 AM [facility] [id number]|2024-04-26 17:40:23|2024-04-26 17:40:23|PCSTNOTE||||"The treatment documented on this account is a continuation of the treatment documented on visit number [id number]. Please see documentation on both accounts to view progress. The Plan of Care has been transitioned and updated within the new A#. I have addressed and agree with the discipline specific Problems, Interventions, and Goals for the current certification period. Completed interventions, outcomes, and problems have been marked as Inactive to facilitate the copying of the Care plan routine for recurring accounts."
--- OUTSIDE RECORDS SUMMARY | 2024-04-22 15:47 | XMS_ITS | Patient Health Record ---
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 Farmer Name Role Phone [facility] Unavailable [phone] Jonathon Nguyen Unavailable Unavailable BILL PEREZ Unavailable [phone] Allergies No Known Allergies Reason For Referral No Information Medications Medication SIG (Take, Route, Frequency, Duration) Notes Start Date End Date Status chondroitin sulfates 250 MG Oral Capsule ORAL chondroitin sulfates 250 MG Oral CapsuleOriginal Medicationchondroitin sulfates 250 MG Oral Capsule *Reorder from [employer] for eRx and Interaction Alerts* 07/20/2012 Active aspirin 81 MG Delayed Release Oral Tablet [Liquid5 Aspirin] ORAL aspirin 81 MG Delayed Release Oral Tablet [Liquid5 Aspirin]Original Medicationaspirin 81 MG Delayed Release Oral Tablet [Liquid5 Aspirin] *Reorder from [employer] for eRx and Interaction Alerts* 07/20/2012 Active Glucosamine Sulfate 500 MG Oral Tablet ORAL glucosamine sulfate 500 MG Oral TabletOriginal Medicationglucosamine sulfate 500 MG Oral Tablet *Reorder from [employer] for eRx and Interaction Alerts* 07/20/2012 Active Magnesium Gluconate 550 MG Oral Tablet ORAL magnesium gluconate 550 MG Oral TabletOriginal Medicationmagnesium gluconate 550 MG Oral Tablet *Reorder from [employer] for eRx and Interaction Alerts* 07/20/2012 Active Immunizations Vaccine Route Administration Date Status Comme nts Influenza, high dose seasonal Unknown 12/19/2022 Admini stered Vital Signs Height-cm 149.86 cm 07/10/2023 Weight-kg 69.85 kg 07/10/2023 Height 59.00 in 07/10/2023 Weight 154 lbs 07/10/2023 BMI 31.1 kg/m2 07/10/2023 Encounters Encounter Location Date Provider Diagnosis [facility] [address] [place], [place] [id number] 05/08/2023 BILL PEREZ Tinea unguium B35.1 ; Pain in right toe(s) M79.674 ; Pain in left toe(s) M79.675 ; Other hammer toe(s) (acquired), right foot M20.41 ; Other hammer toe(s) (acquired), left foot M20.42 ; 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, bilateral legs I70.203 and Type 2 diabetes mellitus with other circulatory complications E11.[address] [id number] 07/10/2023 BILL PEREZ Tinea unguium B35.1 ; Pain in right toe(s) M79.674 ; Pain in left toe(s) M79.675 ; Other hammer toe(s) (acquired), right foot M20.41 ; Other hammer toe(s) (acquired), left foot M20.42 ; 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, bilateral legs I70.203 and Type 2 diabetes mellitus with other circulatory complications E11.[address] [id number] 09/11/2023 BILL PEREZ Tinea unguium B35.1 ; Pain in right toe(s) M79.674 ; Pain in left toe(s) M79.675 ; Other hammer toe(s) (acquired), right foot M20.41 ; Other hammer toe(s) (acquired), left foot M20.42 ; 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, bilateral legs I70.203 and Type 2 diabetes mellitus with other circulatory complications E11.[address] [id number] 11/13/2023 BILL PEREZ Tinea unguium B35.1 ; Pain in right toe(s) M79.674 ; Pain in left toe(s) M79.675 ; Other hammer toe(s) (acquired), right foot M20.41 ; Other hammer toe(s) (acquired), left foot M20.42 ; 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, bilateral legs I70.203 and Type 2 diabetes mellitus with other circulatory complications E11.59 [address] [place], [place] [id number] 01/22/2024 BILL PEREZ Tinea unguium B35.1 ; Pain in right toe(s) M79.674 ; Pain in left toe(s) M79.675 ; Other hammer toe(s) (acquired), right foot M20.41 ; Other hammer toe(s) (acquired), left foot M20.42 ; 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, bilateral legs I70.203 and [...] (ICD-10 - M20.42) 05/08/2023 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, 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) Patient educated on risks and aggravating factors of PVD, including conservative treatment options such as a diet and exercise regimen to aid in slowing progression of vascular disease 07/10/2023 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, 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) Patient educated on risks and aggravating factors of PVD, including conservative treatment options such as a diet and exercise regimen to aid in slowing progression of vascular disease 09/11/2023 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, 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) Patient educated on risks and aggravating factors of PVD, including conservative treatment options such as a diet and exercise regimen to aid in slowing progression of vascular disease 11/13/2023 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 Plan Of Treatment No Information Insurance Providers Payer Name Payer Address Payer Phone Subscriber Number Group Number Insured Name Patient Relationship to Insured Coverage Start Date Coverage End Date Medicare Part B [place] [address] [place] [phone] [id number] CICI HUTCHINSON Self - patient is the insured [facility] Life [employer] Claim [address] [address] [place] [address] [phone] [id number] CICI HUTCHINSON Self - patient is the insured
--- OUTSIDE RECORDS SUMMARY | 2024-04-22 15:47 | XMS_ITS ---
Author Organization [facility] Address [address] [place], [place] [address] Care Team Providers Care Support Teacher Name Role Phone CHI GIBSON Unavailable [phone] Jonathon Nguyen Unavailable Unavailable BILL PEREZ Unavailable [phone] REASON FOR VISIT *General care Medications Medication SIG (Take, Route, Frequency, Duration) Notes Start Date End Date Status aspirin 81 MG Delayed Release Oral Tablet [Lanx Aspirin] ORAL aspirin 81 MG Delayed Release Oral Tablet [Lanx Aspirin]Original Medicationaspirin 81 MG Delayed Release Oral Tablet [Lanx Aspirin] *Reorder from [employer] for eRx and Interaction Alerts* 07/20/2012 Active chondroitin sulfates 250 MG Oral Capsule ORAL chondroitin sulfates 250 MG Oral CapsuleOriginal Medicationchondroitin sulfates 250 MG Oral Capsule *Reorder from [employer] for eRx and Interaction Alerts* 07/20/2012 Active Glucosamine Sulfate 500 MG Oral Tablet ORAL glucosamine sulfate 500 MG Oral TabletOriginal Medicationglucosamine sulfate 500 MG Oral Tablet *Reorder from [employer] for eRx and Interaction Alerts* 07/20/2012 Active Magnesium Gluconate 550 MG Oral Tablet ORAL magnesium gluconate 550 MG Oral TabletOriginal Medicationmagnesium gluconate 550 MG Oral Tablet *Reorder from [employer] for eRx and Interaction Alerts* 07/20/2012 Active Encounters Encounter Location Date Provider Diagnosis [address] [id number] 11/13/2023 BILL PEREZ Tinea unguium B35.1 ; Pain in right toe(s) M79.674 ; Pain in left toe(s) M79.675 ; Other hammer toe(s) (acquired), right foot M20.41 ; Other hammer toe(s) (acquired), left foot M20.42 ; 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 *General care. * HPI: H PI: General care P atient presents to the office for diabetic foot care. Patient states that their nails are thickened, elongated and painful. Patient states that it is aggravated by shoe gear. Onset is gradual., Patient denies taking blood thinners., Date last seen by Dr. Nguyen was 10/2023., Initials [facility]. * ROS: G eneral / Constitutional: Patient denies w eakness. R espiratory: Patient denies c hronic cough, shortness of breath, sputum production. C ardiovascular: Patient denies c hest pain, history of SC, irregular heartbeat. M usculoskeletal: Patient complains of j oint stiffness, hammertoes, flat feet/ planus. P eripheral Vascular: Patient denies b lanching of skin, cold extremities, decreased sensation in extremities. S kin: Patient complains of n ail changes, fungal nails. N eurologic: Patient denies d izziness, gait abnormality, headache. * Medical History: * Medications: T aking Magnesium Gluconate 550 MG Oral Tablet ORAL , Notes to Pharmacist: magnesium gluconate 550 MG Oral TabletOriginal Medicationmagnesium gluconate 550 MG Oral Tablet *Reorder from [employer] for eRx and Interaction Alerts*, Taking Glucosamine Sulfate 500 MG Oral Tablet ORAL , Notes to Pharmacist: glucosamine sulfate 500 MG Oral TabletOriginal Medicationglucosamine sulfate 500 MG Oral Tablet *Reorder from [facility] for eRx and Interaction Alerts*, Taking aspirin 81 MG Delayed Release Oral Tablet [Lanx Aspirin] ORAL , Notes to Pharmacist: aspirin 81 MG Delayed Release Oral Tablet [Lanx Aspirin]Original Medicationaspirin 81 MG Delayed Release Oral Tablet [Lanx Aspirin] *Reorder from [facility] for eRx and Interaction Alerts*, Taking chondroitin sulfates 250 MG Oral Capsule ORAL , Notes to Pharmacist: chondroitin sulfates 250 MG Oral CapsuleOriginal Medicationchondroitin sulfates 250 MG Oral Capsule *Reorder from [facility] for eRx and Interaction Alerts* Objective: * Examination: P hysical Examination: V ascular: Dorsalis Pedis pulse noted at 1/4 right [...] first metatarsophalangeal joint bilaterally. Assessment: * Assessment: 1. T inea unguium - B35.1 (Primary) 2 . P ain in right toe(s) - M79.674 3 . P ain in left toe(s) - M79.675 4 . O ther hammer toe(s) (acquired), right foot - M20.41 5 . Other hammer toe(s) (acquired), left foot - M20.42 6 . 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 O ther hammer toe(s) (acquired), right foot Notes: The patient was educated regarding how [...] were discussed, but conservative options were emphasized. 3. 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 * Procedure Codes: 1 1721 DEBRIDE NAIL, 6 OR MORE, Modifiers: Q8 * Follow Up: 3 Months * Billing Information: * Visit Code: * Procedure Codes: 03729 DEBRIDE NAIL, 6 OR MORE. Modifiers: Q8 * Sign off status: Completed true * Provider: Livan PEREZ Date: 0 11/13/2023 Generated for Rigoberto smith/Adali/Sharon on: 0 04/22/2024 03:47 PM CONVEYOR MAN History and Physical Notes * HPI (History [...]
--- OUTSIDE RECORDS SUMMARY | 2024-04-22 15:47 | XMS_ITS ---
Author Organization [facility] Address [address] [place], [place] [address] Care Team Providers Care Biomass Facilitator Name Role Phone CHI GIBSON Unavailable [phone] Jonathon Nguyen Unavailable Unavailable BILL PEREZ Unavailable [phone] REASON FOR VISIT *General care Medications Medication SIG (Take, Route, Frequency, Duration) Notes Start Date End Date Status chondroitin sulfates 250 MG Oral Capsule ORAL chondroitin sulfates 250 MG Oral CapsuleOriginal Medicationchondroitin sulfates 250 MG Oral Capsule *Reorder from [employer] for eRx and Interaction Alerts* 07/20/2012 Active aspirin 81 MG Delayed Release Oral Tablet [Katelyn Aspirin] ORAL aspirin 81 MG Delayed Release Oral Tablet [Scary Mommy Aspirin]Original Medicationaspirin 81 MG Delayed Release Oral Tablet [Scary Mommy Aspirin] *Reorder from [employer] for eRx and Interaction Alerts* 07/20/2012 Active Glucosamine Sulfate 500 MG Oral Tablet ORAL glucosamine sulfate 500 MG Oral TabletOriginal Medicationglucosamine sulfate 500 MG Oral Tablet *Reorder from [employer] for eRx and Interaction Alerts* 07/20/2012 Active Magnesium Gluconate 550 MG Oral Tablet ORAL magnesium gluconate 550 MG Oral TabletOriginal Medicationmagnesium gluconate 550 MG Oral Tablet *Reorder from [employer] for eRx and Interaction Alerts* 07/20/2012 Active Encounters Encounter Location Date Provider Diagnosis [place] [address] [place], [place] [id number] 01/22/2024 BILL PEREZ Tinea unguium B35.1 ; Pain in right toe(s) M79.674 ; Pain in left toe(s) M79.675 ; Other hammer toe(s) (acquired), right foot M20.41 ; Other hammer toe(s) (acquired), left foot M20.42 ; Unspecified atherosclerosis of rosebud arteries of extremities, bilateral legs I70.203 and [...] (ICD-10 - M20.42) 01/22/2024 Unspecified atherosclerosis of rosebud arteries of extremities, bilateral legs (ICD-10 - [...] conservative options were emphasized. Unspecified atherosclerosis of rosebud arteries of extremities, bilateral legs Patient educated [...] CICI HUTCHINSON KDOB:[birth year] (78 yo F)Acc No.[id number]:01/22/2024 Patient: CICI DEAN Provider: Livan PEREZ :1945 A ge:78 Y S ex:Female Date:01/22/2024 Address:[address] [place] [address], [place] [address] Subjective: * Chief Complaints: * 1 . *General care. * HPI: H PI: General care P atient presents to the office for diabetic foot care. Patient states that their nails are thickened, elongated and painful. Patient states that it is aggravated by shoe gear. Onset is gradual., Patient denies taking blood thinners., Date last seen by Dr. Nguyen was 01/2024., Initials [facility]. * ROS: G eneral / Constitutional: Patient denies w eakness. R espiratory: Patient denies c hronic cough, shortness of breath, sputum production. C ardiovascular: Patient denies c hest pain, history of RI, irregular heartbeat. M usculoskeletal: Patient complains of [...] gluconate 550 MG Oral Tablet *Reorder from [employer] for eRx and Interaction Alerts*, Taking Glucosamine Sulfate 500 MG Oral Tablet ORAL , Notes to Pharmacist: glucosamine sulfate 500 MG Oral TabletOriginal Medicationglucosamine sulfate 500 MG Oral Tablet *Reorder from [facility] for eRx and Interaction Alerts*, Taking aspirin 81 MG Delayed Release Oral Tablet [Scary Mommy Aspirin] ORAL , Notes to Pharmacist: aspirin 81 MG Delayed Release Oral Tablet [Scary Mommy Aspirin]Original Medicationaspirin 81 MG Delayed Release Oral Tablet [Scary Mommy Aspirin] *Reorder from [facility] for eRx and Interaction Alerts*, Taking chondroitin sulfates 250 MG Oral Capsule ORAL , Notes to Pharmacist: chondroitin sulfates 250 MG Oral CapsuleOriginal Medicationchondroitin sulfates 250 MG Oral Capsule *Reorder from [facility] for eRx and Interaction Alerts* Objective: * Vitals: * Examination: P hysical Examination: V ascular: [...] P ain in right toe(s) - M79.674 3. P ain in left toe(s) - M79.675 4 . O ther hammer toe(s) (acquired), right foot - M20.41 5 . O ther hammer toe(s) (acquired), left foot - M20.42 6 . U nspecified atherosclerosis of rosebud arteries of extremities, bilateral legs - I70.203 [...] were emphasized. 3. U nspecified atherosclerosis of rosebud arteries of extremities, bilateral legs Notes: Patient [...] Information: * Visit Code: * Procedure Codes: 41826 DEBRIDE NAIL, 6 OR MORE. Modifiers: Q8 * COMMUNICATIONS CLERK Sign off status: Completed true * Provider: Livan PEREZ Date: 03/23/2023 Generated for Rigoberto smith/Adali/Sharon on: 0 04/22/2024 03:46 PM TELECOMMUNICATIONS CLERK History and Physical Notes * HPI [...]
--- OUTSIDE RECORDS SUMMARY | 2024-04-22 15:47 | XMS_ITS | Data Portability ---
Author Organization [facility], Main Office Address [address] [place] [address] Care Team Providers Care Loading Dock Hand Name Role Phone KEANU SANTIAGO Primary Care Provider KEANU SANTIAGO Referring Provider Assessment Encounter Date [...] more than half the time spent in owmk-tc-ddoy care. Not available 02/01/2023 14:31:51 03/07/2023 03/07/2023 [...] spent treatment patient more half of this xsjx-[id number] conversation Not available 03/07/2023 12:20:35 03/28/2023 03/28/2023 [...] None record ed. Imaging XR, knee 024 03/28/19 24 [email or web address] [facility] [place], [address], [place], [address], 4 16:37:40 XR, knee 024 03/07/19 24 [email or web address] [facility] [place], [address], [place], [address], 4 12:21:50 Medication Orders None record ed. Patient TargetsNo targets recorded. Patient InstructionsNo instructions recorded. Reason for Referral None Reported. Results Created Date Observation Date Name Description Value Unit Range Abnormal Flag Note LastModifiedBy Organization Detail LastModifiedTime 06/07/19 22 XR, hand No observ ation record ed. [id number] [facility] [place] [address], [place], [address], 05/02/2022 01:01:26 06/07/19 22 XR, shoul karlie No observ ation record ed. [id number] [facility] [place] [address], [place], [address], 05/02/2022 01:01:26 06/21/19 22 XR, humer us No observ ation record ed. [id number] [facility] [place] [address], [place], [address], 05/02/2022 01:01:26 07/05/19 22 XR, hand No observ ation record ed. [id number] [facility] [place] [address], [place], [address], 05/02/2022 01:01:26 07/05/19 22 XR, shoul karlie No observ ation record ed. [id number] [facility] [place] [address], [place], [address], 05/02/2022 01:01:26 07/28/19 22 07/27/2021 XR, shoul karlie No observ ation record ed. [id number] [facility] [place] [address], [place], [address], 05/02/2022 01:01:26 01/30/20 23 XR, knee No observ ation record ed. [email or web address] Not Available 2022 16:59:15 03/07/19 24 XR, knee No observ ation record ed. [facility] [place] [address], [place], [address], 03/07/2023 12:18:44 03/28/19 24 XR, knee No observ ation record ed. [facility] [place] [address], [place], [address], 03/28/2023 16:31:08 Result Notes None recorded. Problems Name Problem SNOMED Code Status Onset Date Resolution Date Notes Provider Name and Address Organization Details Recorded Time Pain of right shoulder joint 14916261297621 100 Active 2021 Not Available [facility] 3 00:59:39 Fracture of phalanx of finger 22596002 Active 2021 Not Available [facility] 3 00:59:39 Pain of left hand 02393710950073 3 Active 2021 Not Available [facility] 3 00:59:39 Closed fracture of upper end of humerus 15091333 Active 2021 Not Available [facility] 3 00:59:40 Pain of right knee joint 62023275016263 0 Active 2022 NAPOLEON Wan, [facility] 3 12:25:42 Fracture of ankle 19511856 Active 2023 NAPOLEON Wan, [facility] 4 10:58:49 Closed fracture of right patella 80280700915432 100 Active 2023 MONA Red [address] [place] [address], [place] [address], [place], [address] , [facility] 4 11:35:53 Problem Notes None recorded. Procedures Surgical History Date Name Laterality Status Provider Name and Address Organization Details Recorded Time Breast Surgery completed Not Available [facility] 05/02/2022 00:58:24 procedure on hand completed Not Available [facility] 05/02/2022 00:58:24 Cataract Surgery completed Not Available [facility] 05/02/2022 00:58:24 Imaging Results Imaging Date Name Status LastModified by [facility] Details LastModified Time 06/06/2021 XR, hand completed [id number] [facility] [place] [address], [place], [address], 05/02/2022 01:01:26 06/06/2021 XR, shoulder completed [id number] 30 026 [facility] [place] [address], [place], [address], 05/02/2022 01:01:26 06/20/2021 XR, humerus completed [id number] 30 026 [facility] [place] [address], [place], [address], 05/02/2022 01:01:26 07/27/2021 XR, shoulder completed [id number] 30 026 [facility] [place] [address], [place], [address], 05/02/2022 01:01:26 07/04/2021 XR, hand completed [id number] 30 026 [facility] [place] [address], [place], [address], 05/02/2022 01:01:26 07/04/2021 XR, shoulder completed [id number] 30 026 [facility] [place] [address], [place], [address], 05/02/2022 01:01:26 01/29/2023 XR, knee completed [email or web address] Information no t available 01/29/2023 16:59:15 03/07/2023 XR, knee completed [facility] [place] [address], [place], [address], 03/07/2023 12:18:44 03/28/2023 XR, knee completed [facility] [place] [address], [place], [address], 03/28/2023 16:31:08 Procedure Notes None recorded. Medical [...] completed Not Available Not Available Not Available [employer] 2021 active Not Available Not Available [...] Updated DateTime 07/04/2021 144.78 cm Not Available [facility] 3 00:58:55 Date Recorded Body height Provider Name an d Address Organization Details Last Updated DateTime 07/27/2021 144.78 cm Not Available [facility] 3 00:58:55 Date Recorded Body height Body mass index (BMI) Body weight Provider Name and Address Organization Details Last Updated DateTime 01/31/2023 144.78 cm 32.9 kg/m2 00974.04 g Krys Campos Mary Jo [facility] [employer] [facility] 01/31/2023 12:39:06 Date Recorded Body height Provider Name an d Address Organization Details Last Updated DateTime 03/07/2023 144.78 cm Krys Campos Mary Jo [facility] [employer] [facility] 03/07/2023 10:57:14 Date Recorded Body height Provider Name an d Address Organization Details Last Updated DateTime 03/28/2023 144.78 cm Michela Gardenia [facility] [employer] [facility] 03/28/2023 14:13:14 Social History Question Answer Notes LastModified by Organizat ion Details LastModified Time Tobacco Smoking Status Never Smoker Not Available [facility] 05/02/2022 00:58:03 What Is Your Level Of Alcohol Consumption? None [id number] Information not available 05/02/2022 Sex: Unknown Functional Status None recorded. Mental Status None recorded. Family History Relationship Description Onset Age of this Age Resolved Age Notes LastModified by Organization Details LastModified Time Father Hypertensive disorder [id number] Not available 05/02/2022 00:58:26 Father Diabetes mellitus [id number] Not available 05/02/2022 00:58:26 Mother Hypertensive disorder [id number] Not available 05/02/2022 00:58:26 Mother Diabetes mellitus [id number] Not available 05/02/2022 00:58:26 Medical History Condition Response BLINDNESS N KIDNEY STONES N MRSA N CARPAL TUNNEL SYNDROME N LUNG DISEASE/DISORDER N HISTORY OF DRUG ABUSE N RADIATION / CHEMOTHERAPY N COPD N SPORTS INJURY N ANKLE PAIN N BLOOD DISEASES N SCHIZOPHRENIA N SHINGLES N BOWEL PROBLEMS N SHOULDER PAIN N DEPRESSION (INCLUDING POST ) N STROKE/TIA N KNEE PAIN N ULCERS N BENIGN PROSTATIC HYPERPLASIA N OBESITY N [...] HAVE YOU BEEN HOSPITALIZED OR SEEN IN [facility] IN THE PAST YEAR ? N [...] SNOMED-CT Code Diagnosis ICD10 Code Diagnosis Note [id number] [facility] [place] [address] [place] [address] 05/23/2021 00:00:00 05/27/2021 12:10:32 [id number] [facility] [place] [address] [place] [address] 06/06/2021 00:00:00 06/06/2021 14:59:59 [id number] [facility] [place] [address] [place] [address] 06/20/2021 00:00:00 06/20/2021 10:31:52 [id number] [facility] [place] [address] [place] [address] 07/04/2021 00:00:00 07/04/2021 17:33:55 [id number] [facility] [place] [address] [place] [address] 07/27/2021 00:00:00 07/30/2021 17:54:03 [id number] Christian Olsen MD [facility] [place] [address] [place] [address] 01/31/2023 12:01:28 02/03/2023 10:53:27 Pain of right knee joint 3448032419 99729 M25.395 [id number] MONA Red [facility] [place] [address] [place] [address] 03/07/2023 10:46:53 03/07/2023 12:21:50 Closed fracture of right patella 5696304193 [id number] S82.001A [id number] MONA Red [facility] [place] [address] [place] [address] 03/28/2023 14:03:48 03/28/2023 16:37:40 Pain of right knee joint 1295034672 29866 M25.561 Health Concerns Section Related Observation LastModified by Organization Detai ls LastModified Time None Recorded Concern Status LastModified by Organization Details LastModified Time None Recorded Advance Directives Directive None Recorded Payers Encounter Date Sequence Insurance Name Policy Number Policy Guerrero Covered Member ID Guerrero Member ID Guarantor Name 01/31/2023 1 [place] Elayne Salmeron [id number] Elayne Salmeron 01/31/2023 2 [employer] (MEDICARE SUPPLEMENT) Elayne Salmeron [id number] Elayne Salmeron 03/07/2023 1 [place] Elayne Salmeron [id number] Elayne Salmeron 03/07/2023 2 [employer] (MEDICARE SUPPLEMENT) Elayne Tamayoy [id number] Elayne Salmeron 03/28/2023 1 [place] Elayne Tamayoy [id number] Elayne Salmeron 03/28/2023 2 [employer] (MEDICARE SUPPLEMENT) Elayne Salmeron [id number] Elayne Salmeron Notes Date Note Type Note [...] with her son today. Christian Olsen MD [address] [place] [address], [facility] [address], [place], [address], [place] [facility] 02/01/2023 14:32:04 OBGyn Episode No OBEpisode recorded.
[2024-04-22 16:00] LABS: Basophils Absolute Auto 0.02 K/mm3 (0.00-0.10); Basophils Percent Auto 0.4 % (0.0-1.0); Eosinophils Absolute Auto 0.17 K/mm3 (0.02-0.50); Eosinophils Percent Auto 3.5 % (1.0-6.0); Hematocrit 23.4 % (35.0-42.0); Immature Granulocyte Absolute 0.01 K/mm3 (0.00-0.00); Immature Granulocyte Percent A 0.2 % (0.0-0.0); Immature Platelet Fraction Pct 3.6 % (1.0-7.0); Lymphocytes Percent Auto 32.5 % (18.0-42.0); Mean Corpuscular HGB Conc 29.9 g/dL (32-36); Mean Corpuscular Hemoglobin 26.3 pg (27.0-31.0); Mean Platelet Volume 11.8 fl (9.2-11.8); Monocytes Percent Auto 6.1 % (2.0-11.0); Neutrophils Absolute Auto 2.82 K/mm3 (1.70-7.20); Neutrophils Percent Auto 57.3 % (50.0-70.0); Platelet Count Result 30 K/mm3 (150-420); Red Blood Count 2.66 M/mm3 (4.20-5.40); White Blood Count 4.9 K/mm3 (4.8-10.8)
[2024-04-22 17:32] LABS: Alanine Aminotransferase 30 U/L (14-59); Albumin Level 2.5 g/dL (3.4-5.0); Alkaline Phosphatase 131 U/L (46-116); Anion Gap 8 mmol/L (4-12); Aspartate Amino Transferase 30 U/L (15-37); Bilirubin,Total 0.5 mg/dL (0.00-1.00); Blood Urea Nitrogen 25 mg/dL (7-18); Calcium 8.2 mg/dL (8.5-10.1); Carbon Dioxide 28 mmol/L (21-32); Chloride 103 mmol/L (98-108); Estimated Glomerular Filt Rate 42; Glucose 210 mg/dL (70-99); Osmolality Calculated 298 mOsm/kg (285-295); Potassium 3.8 mmol/L (3.5-5.1); Sodium 139 mmol/L (136-145); Total Protein 5.9 g/dL (6.4-8.2)
[2024-04-24 11:17] VITALS: BP 128/44; PULSE 64; RESP 18; TEMP 36.2; O2SAT 99
[2024-04-24 11:21] VITALS: BMI 31.1
[2024-04-24 11:33] VITALS: BP 130/39; PULSE 64; RESP 18; TEMP 36.4; O2SAT 99
[2024-04-24 12:33] VITALS: BP 134/48; PULSE 64; RESP 18; TEMP 36.5; O2SAT 97
[2024-04-24 13:33] VITALS: BP 136/53; PULSE 68; RESP 18; TEMP 36.3; O2SAT 99
[2024-04-24 15:11] VITALS: BP 140/50; PULSE 70; RESP 16; TEMP 36.4; O2SAT 95
--- NOTE | 2024-04-24 15:15 | PC.NURSE ---
Patient completed blood transfusion. Lined flushed. Lab here to draw H and H..
== END 2024-07-21 23:59 | disposition home or self-care (01) ==
LOC: CHSTREATRM 10:25
PROVIDERS: PCP Internal Medicine; Visit Provider Internal Medicine Hematology
DX: C83.00 Small cell B-cell lymphoma, unspecified site (principal); C50.919 Malignant neoplasm of unspecified site of unspecified female breast
CPT/HCPCS: 36415; 36430; 80053; 85025; 85055; 86850; 86880; 86900; 86901; 86922; P9016

== ENCOUNTER 2024-05-05 08:44 | Outpatient (CLI) | payer MEDICARE, SELFPAY ==
--- NOTE | ~2024-05-05 | CT_ITS ---
EXAMINATION: CT diagnostic chest w con DATE: 05/05/2024 09:42 INDICATION: PERSONAL HX OF PNEUMONIA FOLLOW UP,HAMMOND TECHNIQUE: Computed tomography (CT) of the chest was performed with 75 mL Omnipaque-350 intravenous c ontrast. Additional 3D reconstructions utilizing coronal maximum intensity projection (MIP) were perf ormed. Automated exposure control and iterative reconstruction technique were employed. The dose-donald th product was 183.63 mGy-cm. COMPARISON: Chest CT dated 01/23/2024 FINDINGS: Mild diffuse bronchiectatic changes with scattered mucous plugging in the peripheral bronchi. There a re also tree-in-bud opacities in the anterobasilar segment of the right lower lobe and in the bilater al upper lobes. There is also a small region of peripheral consolidation at the paramediastinal left upper lobe. Discoid atelectasis in the right middle lobe. There are few small calcified pulmonary nod ules in the left lower lobe along with calcified left hilar and mediastinal lymph nodes consistent wi th old granulomatous disease. 9There is pleural thickening and peripheral reticular opacities along t he anterior left upper lobe and lingula with typical location and appearance for radiation fibrosis l ikely related to treatment of prior breast cancer with postoperative changes at the left breast. Clus ter of a few heterotopic ossicles and surgical clips surrounding a 1.5 x 1.2 cm seroma at the medial left breast with invagination of the overlying skin which appears thickened also likely related to pr ior radiation treatment. Correlate with surgical history. No pulmonary edema or pleural effusion. Heart size is normal. Atherosclerotic coronary artery calcification. Aortic valve calcific location. Thoracic aorta is normal in caliber with no dissection. Again seen is mild bilateral hilar and medias tinal lymphadenopathy. This includes a 1.3 cm lower paraesophageal lymph node which has increased fro m 8 x 7 mm. Small sliding-type hiatal hernia. Gallbladder is not visualized and may be surgically abs ent. Cirrhotic liver with subtle liver surface nodularity and small amount of perihepatic ascites. Sp lenomegaly measuring at least 17.7 cm in length which is likely secondary to liver disease related po rtal venous hypertension. AP there are multiple small calcifications consistent with sequela of old g ranulomatous disease. 2.4 x 1.9 cm left adrenal mass which can be seen dating back to CT dated 018 consistent with an adenoma. Unchanged mild gastrohepatic and periportal lymphadenopathy. Moderate to severe thoracic spondylosis. Chronic inferior endplate compression fracture at T12. Old healed ri ght seventh rib fracture. IMPRESSION: 1. Bronchiectasis with regions of tree-in-bud opacity in the right lower and bilateral upper lobes co nsistent bronchiolitis with associated more focal region of consolidation at the left upper lobe cons istent with pneumonia. 2. Mild mediastinal, bilateral hilar and upper abdominal lymphadenopathy with interval increase in si ze of a lower paraesophageal lymph node reactive, lymphoma or metastatic. 3. 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 4. Cirrhosis with splenomegaly consistent with secondary portal venous hypertension. Reviewed, dictated and finalized at location B. E MANAGER IMPRESSION: 1. Bronchiectasis with regions of tree-in-bud opacity in the right lower and bi lateral upper lobes consistent bronchiolitis with associated more focal region of consolidation at the left upper lobe consistent with pneumonia. 2. Mild mediastinal, bilateral hilar and upper abdominal lymphadenopathy with i nterval increase in size of a lower paraesophageal lymph node reactive, lymphom a or metastatic. 3. 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 4. Cirrhosis with splenomegaly consistent with secondary portal venous hyperten priya.
--- OUTSIDE RECORDS SUMMARY | 2024-05-05 09:06 | XMS_ITS ---
Author Organization [facility] Address [address] [place], [place] [address] Care Team Providers Care Behavioral Health Therapist Name Role Phone CHI GIBSON Unavailable [phone] Jonathon Nguyen Unavailable Unavailable REASON FOR VISIT *General care Encounters Encounter Location Date Provider Diagnosis [address] [id number] 04/22/2024 CHI GIBSON Plan Of Treatment No Information Progress Notes * CICI HUTCHINSON KDOB:[birth year] (79 yo F)Acc No.[id number]:04/22/2024 Patient: MARIA ELENA DEANLIAndres Mar Provider: Andres Gibson DPM :1945 A ge:78 Y S ex:Female Date:04/22/2024 Address:[address] [place] [address], [address] Subjective: * Chief Complaints: * 1 . *General care. * Medical History: Objective: * Vitals: Assessment: Plan: * Treatment: * Billing Information: * Visit Code: * Procedure Codes: * Electronic signature of CHI GIBSON DPM on 05/05/2024 at 09:06 AM SALESPERSON [employer] Sign off status: Pending * Provider: Andres Gibson DPM Date: 04/22/2024 Generated for Printi ng/Faxing/eTransmitting on: 0 05/05/2024 09:06 AM SALESPERSON [employer]
--- OUTSIDE RECORDS SUMMARY | 2024-05-05 09:06 | XMS_ITS | Patient Health Record ---
Author Organization [facility] Address [address] [place], [place] [address] Care Team Providers Care Director [employer] Name Role Phone CHI GIBSON Unavailable [phone] Jonathon Nguyen Unavailable Unavailable BILL PEREZ Unavailable [phone] Allergies No Known Allergies Reason For Referral No Information Medications Medication SIG (Take, Route, Frequency, Duration) Notes Start Date End Date Status chondroitin sulfates 250 MG Oral Capsule ORAL chondroitin sulfates 250 MG Oral CapsuleOriginal Medicationchondroitin sulfates 250 MG Oral Capsule *Reorder from [employer] for eRx and Interaction Alerts* 07/20/2012 Active aspirin 81 MG Delayed Release Oral Tablet [MarkTheGlobe Aspirin] ORAL aspirin 81 MG Delayed Release Oral Tablet [Mark[employer]Globe Aspirin]Original Medicationaspirin 81 MG Delayed Release Oral Tablet [[employer]obe Aspirin] *Reorder from [employer] for eRx and Interaction Alerts* 07/20/2012 Active Glucosamine Sulfate 500 MG Oral Tablet ORAL glucosamine sulfate 500 MG Oral TabletOriginal Medicationglucosamine sulfate 500 MG Oral Tablet *Reorder from [employer] for eRx and Interaction Alerts* 07/20/2012 Active Magnesium Gluconate 550 MG Oral Tablet ORAL magnesium gluconate 550 MG Oral TabletOriginal Medicationmagnesium gluconate 550 MG Oral Tablet *Reorder from [employer] for eRx and Interaction Alerts* 07/20/2012 Active Immunizations Vaccine Route Administration Date Status Comme nts Influenza, high dose seasonal Unknown 12/19/2022 Admini stered Vital Signs Height-cm 149.86 cm 07/10/2023 Weight-kg 69.85 kg 07/10/2023 Height 59.00 in 07/10/2023 Weight 154 lbs 07/10/2023 BMI 31.1 kg/m2 07/10/2023 Encounters Encounter Location Date Provider Diagnosis [facility] [address] [place], [place] [id number] 05/08/2023 BILL PEREZ Tinea unguium B35.1 ; Pain in right toe(s) M79.674 ; Pain in left toe(s) M79.675 ; Other hammer toe(s) (acquired), right foot M20.41 ; Other hammer toe(s) (acquired), left foot M20.42 ; Unspecified atherosclerosis of [place] arteries of extremities, bilateral legs I70.203 and Type 2 diabetes mellitus with other circulatory complications E11.[address] [id number] 07/10/2023 BILL PEREZ Tinea unguium B35.1 ; Pain in right toe(s) M79.674 ; Pain in left toe(s) M79.675 ; Other hammer toe(s) (acquired), right foot M20.41 ; Other hammer toe(s) (acquired), left foot M20.42 ; Unspecified atherosclerosis of [place] arteries of extremities, bilateral legs I70.203 and Type 2 diabetes mellitus with other circulatory complications E11.[address] [id number] 09/11/2023 BILL PEREZ Tinea unguium B35.1 ; Pain in right toe(s) M79.674 ; Pain in left toe(s) M79.675 ; Other hammer toe(s) (acquired), right foot M20.41 ; Other hammer toe(s) (acquired), left foot M20.42 ; Unspecified atherosclerosis of [place] arteries of extremities, bilateral legs I70.203 and Type 2 diabetes mellitus with other circulatory complications E11.[address] [id number] 11/13/2023 BILL PEREZ Tinea unguium B35.1 ; Pain in right toe(s) M79.674 ; Pain in left toe(s) M79.675 ; Other hammer toe(s) (acquired), right foot M20.41 ; Other hammer toe(s) (acquired), left foot M20.42 ; Unspecified atherosclerosis of [place] arteries of extremities, bilateral legs I70.203 and Type 2 diabetes mellitus with other circulatory complications E11.59 [place] [place], [place] [id number] 01/22/2024 BILL PEREZ Tinea unguium B35.1 ; Pain in right toe(s) M79.674 ; Pain in left toe(s) M79.675 ; Other hammer toe(s) (acquired), right foot M20.41 ; Other hammer toe(s) (acquired), left foot M20.42 ; Unspecified atherosclerosis of [place] arteries of extremities, bilateral legs I70.203 and [...] (ICD-10 - M20.42) 05/08/2023 Unspecified atherosclerosis of [place] arteries of extremities, 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) Patient educated on risks and aggravating factors of PVD, including conservative treatment options such as a diet and exercise regimen to aid in slowing progression of vascular disease 07/10/2023 Unspecified atherosclerosis of [place] arteries of extremities, 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) Patient educated on risks and aggravating factors of PVD, including conservative treatment options such as a diet and exercise regimen to aid in slowing progression of vascular disease 09/11/2023 Unspecified atherosclerosis of [place] arteries of extremities, 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) Patient educated on risks and aggravating factors of PVD, including conservative treatment options such as a diet and exercise regimen to aid in slowing progression of vascular disease 11/13/2023 Unspecified atherosclerosis of [place] arteries of extremities, 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) Patient educated on risks and aggravating factors of PVD, including conservative treatment options such as a diet and exercise regimen to aid in slowing progression of vascular disease 01/22/2024 Unspecified atherosclerosis of [place] arteries of extremities, bilateral legs (ICD-10 - [...] Date Coverage End Date Medicare Part B [place] [address] [place] [phone] [id number] CICI HUTCHINSON Self - patient is the insured [facility] Life Paper Claim [address] [address] [place] [id number] CICI HUTCHINSON Self - patient is the insured
--- OUTSIDE RECORDS SUMMARY | 2024-05-05 09:06 | XMS_ITS | Encounter Summary ---
Author Organization [facility] Address [address] [place] [address] Care Team Providers Care Fertilizer Mixer Name Role Phone Non-Staff, Provider Primary Care Provider Luis troncoso Encounter Details Date Type Department Care Team (Late st Contact Info) Description 03/27/2024 [facility] [place] [address] [place] [address] Pema Kinsey MD [address] [place], [place] [address] Social History Tobacco Use Types Packs/Day Years Used Date Smoking Tobacco: Never Smokeless Tobacco: Never Alcohol Use Standard Drinks/Week Comments Not Currently 0 (1 standard drink = 0.6 oz pur e alcohol) Comments Unknown Sex and Gender Information Value Date Recorded Sex Assigned at Female 03/26/2024 8:00 AM WIRE TRANSFER CLERK Legal Sex Female 11:03 PM WIRE TRANSFER CLERK Gender Identity Not on file Sexual [...] on filedocumented in this encounter Care Teams Fertilizer Mixer Relationship Specialty Start Date End Date Non-Staff, Provider PCP - General UNKNOWN PHYSICIAN SPECIALTY 12/25/23 documented as of this encounter
--- OUTSIDE RECORDS SUMMARY | 2024-05-05 09:07 | XMS_ITS ---
Author Organization [facility] Address [address] [place], [place] [address] Care Team Providers Care Office Runner Name Role Phone CHI GIBSON Unavailable [phone] Jonathon Nguyen Unavailable Unavailable BILL PEREZ Unavailable [phone] REASON FOR VISIT *General care Medications Medication SIG (Take, Route, Frequency, Duration) Notes Start Date End Date Status chondroitin sulfates 250 MG Oral Capsule ORAL chondroitin sulfates 250 MG Oral CapsuleOriginal Medicationchondroitin sulfates 250 MG Oral Capsule *Reorder from [employer] for eRx and Interaction Alerts* 07/20/2012 Active aspirin 81 MG Delayed Release Oral Tablet [Katelyn Aspirin] ORAL aspirin 81 MG Delayed Release Oral Tablet [Media[employer]ast Aspirin]Original Medicationaspirin 81 MG Delayed Release Oral Tablet [[employer] Aspirin] *Reorder from [employer] for eRx and Interaction Alerts* 07/20/2012 Active Glucosamine Sulfate 500 MG Oral Tablet ORAL glucosamine sulfate 500 MG Oral TabletOriginal Medicationglucosamine sulfate 500 MG Oral Tablet *Reorder from [employer] for eRx and Interaction Alerts* 07/20/2012 Active Magnesium Gluconate 550 MG Oral Tablet ORAL magnesium gluconate 550 MG Oral TabletOriginal Medicationmagnesium gluconate 550 MG Oral Tablet *Reorder from [employer] for eRx and Interaction Alerts* 07/20/2012 Active Encounters Encounter Location Date Provider Diagnosis [place] [address] [place], [place] [id number] 01/22/2024 BILL PEREZ Tinea unguium B35.1 ; Pain in right toe(s) M79.674 ; Pain in left toe(s) M79.675 ; Other hammer toe(s) (acquired), right foot M20.41 ; Other hammer toe(s) (acquired), left foot M20.42 ; Unspecified atherosclerosis of [place] arteries of extremities, bilateral legs I70.203 and [...] (ICD-10 - M20.42) 01/22/2024 Unspecified atherosclerosis of [place] arteries of extremities, bilateral legs (ICD-10 - [...] conservative options were emphasized. Unspecified atherosclerosis of [place] arteries of extremities, bilateral legs Patient educated [...] CICI HUTCHINSON KDOB:[birth year] (78 yo F)Acc No.[id number]:01/22/2024 Patient: CICI DEAN Provider: Livan PEREZ :1945 A ge:78 Y S ex:Female Date:01/22/2024 Address:[address] [place] [address], [place] [address] Subjective: * Chief Complaints: * 1 . *General care. * HPI: H PI: General care P atient presents to the office for diabetic foot care. Patient states that their nails are thickened, elongated and painful. Patient states that it is aggravated by shoe gear. Onset is gradual., Patient denies taking blood thinners., Date last seen by Dr. Nguyen was 01/2024., Initials [facility]. * ROS: G eneral / Constitutional: Patient denies w eakness. R espiratory: Patient denies c hronic cough, shortness of breath, sputum production. C ardiovascular: Patient denies c hest pain, history of WI, irregular heartbeat. M usculoskeletal: Patient complains of [...] gluconate 550 MG Oral Tablet *Reorder from [employer] for eRx and Interaction Alerts*, Taking Glucosamine Sulfate 500 MG Oral Tablet ORAL , Notes to Pharmacist: glucosamine sulfate 500 MG Oral TabletOriginal Medicationglucosamine sulfate 500 MG Oral Tablet *Reorder from [facility] for eRx and Interaction Alerts*, Taking aspirin 81 MG Delayed Release Oral Tablet [[employer] Aspirin] ORAL , Notes to Pharmacist: aspirin 81 MG Delayed Release Oral Tablet [[employer] Aspirin]Original Medicationaspirin 81 MG Delayed Release Oral Tablet [[employer] Aspirin] *Reorder from [facility] for eRx and Interaction Alerts*, Taking chondroitin sulfates 250 MG Oral Capsule ORAL , Notes to Pharmacist: chondroitin sulfates 250 MG Oral CapsuleOriginal Medicationchondroitin sulfates 250 MG Oral Capsule *Reorder from [facility] for eRx and Interaction Alerts* Objective: [...] M20.42 6 . U nspecified atherosclerosis of [place] arteries of extremities, bilateral legs - I70.203 [...] were emphasized. 3. U nspecified atherosclerosis of [place] arteries of extremities, bilateral legs Notes: Patient [...] Information: * Visit Code: * Procedure Codes: 93379 DEBRIDE NAIL, 6 OR MORE. Modifiers: Q8 * JOINTER FEEDER Sign off status: Completed true * Provider: Livan PEREZ Date: 03/23/2023 Generated for Rigoberto smith/Adali/Sharon on: 0 05/05/2024 09:06 AM GLUE JOINTER FEEDER History and Physical Notes * HPI (History [...]
--- OUTSIDE RECORDS SUMMARY | 2024-05-05 09:07 | XMS_ITS | Data Portability ---
Author Organization [employer], Main Office Address [address] [place] [address] Project Manager Name Role Phone KEANU SANTIAGO Primary Care Provider [phone] KEANU SANTIAGO Referring Provider [phone] Assessment Encounter Date Assessment Date Assessment LastModified [...] more than half the time spent in vfwd-yr-chca care. Not available 02/01/2023 14:31:51 03/07/2023 03/07/2023 [...] spent treatment patient more half of this bzwj-dz-wtvc conversation Not available 03/07/2023 12:20:35 03/28/2023 03/28/2023 [...] knee 024 03/28/19 24 [email or web address] [facility] [place], [address], [place], [address], 4 16:37:40 XR, knee 024 03/07/19 24 [email or web address] [facility] [place], [address], [place], [address], 4 12:21:50 Medication Orders None record ed. Patient TargetsNo targets recorded. Patient InstructionsNo instructions recorded. Reason for Referral None Reported. Results Created Date Observation Date Name Description Value Unit Range Abnormal Flag Note LastModifiedBy Organization Detail LastModifiedTime 06/07/19 22 XR, hand No observ ation record ed. [id number] [facility] [place] [address], [place], [address], 05/02/2022 01:01:26 06/07/19 22 XR, shoul karlie No observ ation record ed. [id number] [facility] [place] [address], [place], [address], 05/02/2022 01:01:26 06/21/19 22 XR, humer us No observ ation record ed. [id number] [facility] [place] [address], [place], [address], 05/02/2022 01:01:26 07/05/19 22 XR, hand No observ ation record ed. [id number] [facility] [place] [address], [place], [address], 05/02/2022 01:01:26 07/05/19 22 XR, shoul karlie No observ ation record ed. [id number] [facility] [place] [address], [place], [address], 05/02/2022 01:01:26 07/28/19 22 07/27/2021 XR, shoul karlie No observ ation record ed. [id number] [facility] [place] [address], [place], [address], 05/02/2022 01:01:26 01/30/20 23 XR, knee No observ ation record ed. [email or web address] Not Available 2022 16:59:15 03/07/19 24 XR, knee No observ ation record ed. [facility] [place] [address], [place], [address], 03/07/2023 12:18:44 03/28/19 24 XR, knee No observ ation record ed. [facility] [place] [address], [place], [address], 03/28/2023 16:31:08 Result Notes None recorded. Problems Name Problem SNOMED Code Status Onset Date Resolution Date Notes Provider Name and Address Organization Details Recorded Time Pain of right shoulder joint 24814949242613 100 Active 2021 Not Available [facility] 3 00:59:39 Fracture of phalanx of finger 76348913 Active 2021 Not Available [facility] 3 00:59:39 Pain of left hand 73970319625199 3 Active 2021 Not Available [facility] 3 00:59:39 Closed fracture of upper end of humerus 04034995 Active 2021 Not Available [facility] 3 00:59:40 Pain of right knee joint 30258126064735 0 Active 2022 NAPOLEON Wan, [facility] 3 12:25:42 Fracture of ankle 39290895 Active 2023 NAPOLEON Wan, [facility] 4 10:58:49 Closed fracture of right patella 60108238740509 100 Active 2023 MONA Red [address] [place] [address], [place] [address], [place], [address] , [facility] 4 11:35:53 Problem Notes None recorded. Procedures Surgical History Date Name Laterality Status Provider Name and Address Organization Details Recorded Time Breast Surgery completed Not Available [facility] 05/02/2022 00:58:24 procedure on hand completed Not Available [facility] 05/02/2022 00:58:24 Cataract Surgery completed Not Available [facility] 05/02/2022 00:58:24 Imaging Results Imaging Date Name Status LastModified by [facility] Details LastModified Time 06/06/2021 XR, hand completed [id number] 026 [facility] [place] [address], [place], [address], 05/02/2022 01:01:26 06/06/2021 XR, shoulder completed [id number] 30 026 [facility] [place] [address], [place], [address], 05/02/2022 01:01:26 06/20/2021 XR, humerus completed [id number] 30 026 [facility] [place] [address], [place], [address], 05/02/2022 01:01:26 07/27/2021 XR, shoulder completed [id number] 30 026 [facility] [place] [address], [place], [address], 05/02/2022 01:01:26 07/04/2021 XR, hand completed [id number] 30 026 [facility] [place] [address], [place], [address], 05/02/2022 01:01:26 07/04/2021 XR, shoulder completed [id number] 30 026 [facility] [place] [address], [place], [address], 05/02/2022 01:01:26 01/29/2023 XR, knee completed [email or web address] Information no t available 01/29/2023 16:59:15 03/07/2023 XR, knee completed [facility] [place] [address], [place], [address], 03/07/2023 12:18:44 03/28/2023 XR, knee completed [facility] [place] [address], [place], [address], 03/28/2023 16:31:08 Procedure Notes None recorded. Medical [...] Updated DateTime 07/04/2021 144.78 cm Not Available [facility] 3 00:58:55 Date Recorded Body height Provider Name an d Address Organization Details Last Updated DateTime 07/27/2021 144.78 cm Not Available [facility] 3 00:58:55 Date Recorded Body height Body mass index (BMI) Body weight Provider Name and Address Organization Details Last Updated DateTime 01/31/2023 144.78 cm 32.9 kg/m2 41717.04 g Krys Campos Mary Jo [facility] 01/31/2023 12:39:06 Date Recorded Body height Provider Name an d Address Organization Details Last Updated DateTime 03/07/2023 144.78 cm Krys Campos Mary Jo [facility] 03/07/2023 10:57:14 Date Recorded Body height Provider Name an d Address Organization Details Last Updated DateTime 03/28/2023 144.78 cm Michela Gardenia [facility] 03/28/2023 14:13:14 Social History Question Answer Notes LastModified by Organizat ion Details LastModified Time Tobacco Smoking Status Never Smoker Not Available [facility] 05/02/2022 00:58:03 What Is Your Level Of Alcohol Consumption? None [id number] Information not available 05/02/2022 Sex: Unknown Functional Status None recorded. Mental Status None recorded. Family History Relationship Description Onset Age of this Age Resolved Age Notes LastModified by Organization Details LastModified Time Father Hypertensive disorder [id number] Not available 05/02/2022 00:58:26 Father Diabetes mellitus [id number].888 [id number] Not available 05/02/2022 00:58:26 Mother Hypertensive disorder [id number].191 [id number] Not available 05/02/2022 00:58:26 Mother Diabetes mellitus [id number].311 [id number] Not available 05/02/2022 00:58:26 Medical History Condition [...] SNOMED-CT Code Diagnosis ICD10 Code Diagnosis Note [id number] [facility] [place] [address] [place] [address] 05/23/2021 00:00:00 05/27/2021 12:10:32 [id number] [facility] [place] [address] [place] [address] 06/06/2021 00:00:00 06/06/2021 14:59:59 [id number] [facility] [place] [address] [place] [address] 06/20/2021 00:00:00 06/20/2021 10:31:52 [id number] [facility] [place] [address] [place] [address] 07/04/2021 00:00:00 07/04/2021 17:33:55 [id number] [facility] [place] [address] [place] [address] 07/27/2021 00:00:00 07/30/2021 17:54:03 [id number] Christian Olsen MD [facility] [place] [address] [place] [address] 01/31/2023 12:01:28 02/03/2023 10:53:27 Pain of right knee joint 2991808471 95819 M25.851 [id number] MONA Red [facility] [place] [address] [place] [address] 03/07/2023 10:46:53 03/07/2023 12:21:50 Closed fracture of right patella 5417407126 [id number] S82.001A [id number] MONA Red [facility] [place] [address] [place] [address] 03/28/2023 14:03:48 03/28/2023 16:37:40 Pain of right knee joint 5562810429 19501 M25.561 Health Concerns Section Related Observation LastModified by Organization Detai ls LastModified Time None Recorded Concern Status LastModified by Organization Details LastModified Time None Recorded Advance Directives Directive None Recorded Payers Encounter Date Sequence Insurance Name Policy Number Policy Guerrero Covered Member ID Guerrero Member ID Guarantor Name 01/31/2023 1 [place] Elayne Salmeron [id number] Elayne Salmeron 01/31/2023 2 [employer] (MEDICARE SUPPLEMENT) Elayne Salmeron [id number] Elayne Salmeron 03/07/2023 1 [place] Elayne Salmeron [id number] Elayne Salmeron 03/07/2023 2 [employer] (MEDICARE SUPPLEMENT) Elayne Tamayoy [id number] Elayne Salmeron 03/28/2023 1 [place] Elayne Tamayoy [id number] Elayne Salmeron 03/28/2023 2 [employer] (MEDICARE SUPPLEMENT) Elayne Salmeron [id number] Elayne Salmeron Notes Date Note Type Note [...] with her son today. Christian Olsen MD [address] [place] [address], [facility] [address], [place], [address], [place] [facility] 02/01/2023 14:32:04 OBGyn Episode No OBEpisode recorded.
--- OUTSIDE RECORDS SUMMARY | 2024-05-05 09:07 | XMS_ITS | Clinical Summary ---
Author Organization [facility] Address [address] [place] [address] Care Team Providers Care Tariff Clerk Name Role Phone Non-Staff, Provider Primary Care [...] Date Type Department Care Team Description 03/27/2024 [facility] [place] Documentation [place] [address] [place] [address] Judi Arreaga MD 03/26/2024 8:03 AM MILL LABOR SUPERVISOR - 03/26/2024 11:59 PM MILL LABOR SUPERVISOR Hospital Encounter [facility] [address] [place] [address] Judi Arreaga MD Discharge Disposition: Home or Self Care (Routine Discharge) 03/26/2024 8:02 AM MILL LABOR SUPERVISOR Hospital Encounter [facility] [address] [place] [address] Dawson Linton MD Discharge Disposition: Home or Self Care (Routine Discharge) 03/26/2024 Travel 03/19/2024 Pre-Procedure Call [facility] Interventional Radiology [address] [place] [address] Randee Alas RN Preprocedure Call (Spoke with Dr. Nguyen's office and they will fax over signed office notes from 03/16/24 appt) 03/19/2024 Telephone [facility] Interventional Radiology [address] [place] [address] Katlyn Thurman RN Preprocedure Call (Son called to see if patient can have bone marrow biopsy appt earlier in the morning. Appt moved to 0830 lab, 0900 hold time and 1000 procedure. Son aware of changed time, npo at midnight and will need home delivery driver for the way home. Son stated patient has been seen by Dr. Nguyen in [place] on 03/16. ) from Last 3 Months Social History Tobacco Use Types Packs/Day Years Used Date Smoking Tobacco: Never Smokeless Tobacco: Never Tobacco Cessation:Counseling Given: Not Answered Alcohol Use Standard Drinks/Week Comments Not Currently 0 (1 standard drink = 0.6 oz pur e alcohol) Comments Unknown Sex and Gender Information Value Date Recorded Sex Assigned at Female 03/26/2024 8:00 AM MILL LABOR SUPERVISOR Legal Sex Female 11:03 PM MILL LABOR SUPERVISOR Gender Identity Not on file Sexual Orientation Not on file Last Filed Vital Signs Vital Sign Reading Time Taken Comments Blood Pressure 137/48 03/26/2024 1:05 PM MILL LABOR SUPERVISOR Pulse 65 03/26/2024 1:05 PM MILL LABOR SUPERVISOR Temperature 35.7 C (96.3 F) 12/26/2023 9:21 AM CDT Respiratory Rate 24 03/26/2024 1:05 PM MILL LABOR SUPERVISOR Oxygen Saturation 94% 03/26/2024 1:18 PM MILL LABOR SUPERVISOR Inhaled Oxygen Concentration - - Weight 68 kg (150 lb) 03/26/2024 9:21 AM MILL LABOR SUPERVISOR Height 149.9 cm (4' 11 ) 03/26/2024 9:21 AM MILL LABOR SUPERVISOR Body Mass Index 30.3 03/26/2024 9:21 AM MILL LABOR SUPERVISOR Plan of Treatment Health Maintenance Due [...] CHEST+ABD+PEL W CON Routine 03/26/2024 12:20 PM MILL LABOR SUPERVISOR Lymphoma, small lymphocytic ([facility]/HCC) CT GD ASPIR+BX BONE MARROW Routine 03/26/2024 12:15 PM MILL LABOR SUPERVISOR Lymphoma, small lymphocytic ([facility] HHS/HCC) CREATININE WHOLE BLOOD Routine 03/26/2024 12:15 PM MILL LABOR SUPERVISOR FLOW CYTOMETRY Routine 03/26/2024 11:55 AM MILL LABOR SUPERVISOR CHROMOSOME ANALYSIS HEMATOLOGIC MALIGNANCY Routine 03/26/2024 11:55 AM MILL LABOR SUPERVISOR XR CHEST PA OR AP 1V STAT 03/26/2024 10:47 AM MILL LABOR SUPERVISOR Lymphoma, small lymphocytic (CMS/HCC HHS/HCC) TYPE & SCREEN STAT 03/26/2024 9:58 AM MILL LABOR SUPERVISOR Lymphoma, small lymphocytic (CMS/HCC HHS/HCC) CBC W/DIFF AUTOMATED Routine 03/26/2024 8:28 AM MILL LABOR SUPERVISOR Lymphoma, small lymphocytic (CMS/HCC HHS/HCC) PROTHROMBIN TIME, VENOUS Routine 03/26/2024 8:28 AM MILL LABOR SUPERVISOR Lymphoma, small lymphocytic (CMS/HCC HHS/HCC) PATHOLOGY Routine 03/26/2024 12:00 AM MILL LABOR SUPERVISOR from Last 3 Months Results * CT CHEST+ABD+PEL W CON (03/26/2024 12:20 PM MILL LABOR SUPERVISOR) Anatomical Region Laterality Modality Chest, Abdomen, Pelvis Computed Tomography 04/04/2024 9:43 AM MILL LABOR SUPERVISOR Impressions 04/04/2024 10:02 AM MILL LABOR SUPERVISOR Impression: 1. Mediastinal and hilar lymphadenopathy as [...] 04/04/2024 9:43 AM Narrative 04/04/2024 10:02 AM MILL LABOR SUPERVISOR [address] [address] Examination: CT chest, abdomen and pelvis with [...] Procedure Note Rei Gaines MD - 04/04/2024 [place] [address] Examination: CT chest, abdomen and pelvis with [...] left and trace right pleural effusions. Irregular iszqvmuqacvzbp-zx-iaq opacities are present within both lungs, most [...] GD ASPIR+BX BONE MARROW (03/26/2024 12:15 PM MILL LABOR SUPERVISOR) Anatomical Region Laterality Modality Bone Computed Tomogra phy, Radiographic Imaging 03/26/2024 4:31 PM MILL LABOR SUPERVISOR Impressions 03/26/2024 5:05 PM MILL LABOR SUPERVISOR IMPRESSION: CT-guided percutaneous bone marrow biopsy, as described. The attending radiologist, Dr. Webber, was in the department for all critical portions of the procedure, has reviewed the images, and agrees with the content of this report. Dictated By: MONA Eric on 03/26/2024 4:31 PM Ordered By: JUDI ARREAGA Interpreted By: MONA Eric, 03/26/2024 4:31 PM Narrative 03/26/2024 5:05 PM MILL LABOR SUPERVISOR [address] [address] PROCEDURE: CT-guided bone marrow aspiration and biopsy DATE OF PROCEDURE: 03/26/2024 11:45 AM INDICATION: History of CLL. Primary provider: Mik Kim PA-C Supervising provider: Jamshid Webber M.D. Conscious sedation: Administered and monitored by a qualified interventional radiology nurse under supervision of the interventional physician resident programs assistant. There was continuous monitoring of vital signs including pulse oximetry, end-tidal CO2, and EKG. Total intraservice or nfeq-zq-enmq sedation time: 5 minutes. TECHNIQUE AND FINDINGS: Informed written consent was obtained. The patient was then brought to the CT scanner suite, placed in the prone position, and Villard protocol was observed to verify correct patient, [...] The needle was then connected to an [employer] motorized device to penetrate the cortex. At [...] Procedure Note Jamshid Webber MD - 03/26/[address] [address] PROCEDURE: CT-guided bone marrow aspiration and biopsy DATE OF PROCEDURE: 03/26/2024 11:45 AM INDICATION: History of CLL. Primary provider: Mik Kim PA-C Supervising provider: Jamshid Webber M.D. Conscious sedation: Administered and monitored by a qualifiedinterventional radiology nurse under supervision of the interventionalphysician resident programs assistant. There was continuous monitoring of vital signsincluding pulse oximetry, end-tidal CO2, and EKG. Total intraservice xfbgte-ao-uyay sedation time: 5 minutes. TECHNIQUE AND FINDINGS: Informed written consent was obtained. The patient was then brought to theCT scanner suite, placed in the prone position, and Villard protocol wasobserved to verify correct patient, site, [...] (ABNORMAL) CREATININE WHOLE BLOOD (03/26/2024 12:15 PM MILL LABOR SUPERVISOR) CREATININE WHOLE BLOOD 0.9 0.6 - 1.3 mg/dL 03/26/2024 12:24 PM MILL LABOR SUPERVISOR [facility] GFR ESTIMATE 65(L) >90 ML/MIN/1. 73 M2 03/26/2024 12:24 [address] MILL LABOR SUPERVISOR [facility] GFR NOTES GFR REFERENCE S: 03/26/2024 12:24 PM MILL LABOR SUPERVISOR [facility] Comment: THE ESTIMATED GFR IS CALCULATED [...] TEST WAS PERFORMED: 1215 03/26/2024 12:24 [address] MILL LABOR SUPERVISOR [facility] 03/26/2024 12:1 5 PM MILL LABOR SUPERVISOR us Dawson Linton MD LABORATORY Final Result [facility] [address] [place] [address], [id number] * Flow Cytometry (03/26/2024 11:55 AM MILL LABOR SUPERVISOR) FLOW CYTOMETRY RESULTS [facility] Department of Laboratory Medicine [address] [place] [address] , extension [phone] Pathology Report Flow Cytometry Report Name: CICI HUTCHINSON Specimen #: [id number] Age: 2 1945 (Age: 78) Location: [facility] Sex: F Procedure Date: 03/26/2024 Hospital #: [id number] Date Received: 03/26/2024 Date Reported: 04/08/2024 Provider: [...] cells. Result: Tested: CD45, CD19, CD20, Surface [place], Surface Lambda, CD5, CD10, CD38, CD34, CD14, [...] and its performance characteristics determined by [facility]. It has not been cleared or approved by the U.S. Food and Drug Administration. However, the use of Analyte Specific Reagents does not require FDA approval. [facility] 03/26/2024 11:5 5 AM MILL LABOR SUPERVISOR 03/26/2024 12:15 PM MILL LABOR SUPERVISOR Comment:Bone marrow aspirati on (See report [id number]) Judi Arreaga MD PATHOLOGY/CYTOLOGY OR DERABLES Final Result [facility] [address] [place] [address], [id number] * CHROMOSOME ANALYSIS HEMATOLOGIC MALIGNANCY (03/26/2024 11:55 AM MILL LABOR SUPERVISOR) SPECIMEN SOURCE BONE MARROW NA AHEP 03/26/2024 3:11 [address] MILL LABOR SUPERVISOR [facility] CLINICAL INDICATION LYMPHOMA 03/26/2024 3:11 [address] MILL LABOR SUPERVISOR [facility] PRIOR THERAPY/TRANSPLANT UNK 03/26/2024 3:11 PM MILL LABOR SUPERVISOR [facility] PHYSICIAN PHONE [phone] 3:[address] MILL [address] SUPERVISOR [facility] Comment: [phone] CLIENT PHONE [phone] 03/26/2024 3:11 PM MILL LABOR SUPERVISOR [facility] Comment: [phone] CHROMOSOME BLOOD REPORT 04/01/19 2:52 PM MILL LABOR SUPERVISOR [place] [facility]ST[facility]AZ[facility] Comment: Order ID: [id number] Specimen Type: Bone Marrow Clinical Indication: Lymphoma [...] 47,XX,+12[14]/46,XX[6] ASSAY INFORMATION: Method: G-Band (Digital Analysis: [facility]) Cells Counted: 20 Band Level: 400 Cells Analyzed: 20 Cells Karyotyped: 4 Small clonal populations and subtle chromosome abnormalities may not be identified. Irish Brannon, Ph.D., [facility], Administrative Appeals Tribunal Member, Cytogenetics and Genomics, Electronic Signature: 04/01/2024 3:08 PM For more information on this test, go to [email or web address]://[email or web address]/faq/Ca-chromosome Test Performed by Keesha Montoya, [place] [facility], [address] [place] [address] Mike Santana M.D., Ph.D., Director of Laboratories , [place] [id number] 03/26/2024 11:5 5 AM MILL LABOR SUPERVISOR Judi Arreaga MD LABORATORY Final Result [place] [id number] [place], [place] , [place] [phone] [facility] [address] [place] [address], [place] [phone] [phone] * XR CHEST PA OR AP 1V (03/26/2024 10:47 AM MILL LABOR SUPERVISOR) Anatomical Region Laterality Modality Chest Radiographic Fidelia ging 03/26/2024 11:0 4 AM MILL LABOR SUPERVISOR Impressions 03/26/2024 11:14 AM MILL LABOR SUPERVISOR IMPRESSION: Cardiomegaly with probable pulmonary congestion/mild interstitial CHF.Patchy opacity in the left midlung laterally which could represent pneumonia. Recommend correlation with any recent outside films if possible. Ordered By: JAMSHID WEBBER Interpreted By: Jamshid Webber MD, 03/26/2024 11:04 AM Narrative 03/26/2024 11:14 AM MILL LABOR SUPERVISOR [address] [address] EXAM DESCRIPTION: Chest 1 view EXAM TIME : 03/26/2024 10:44 AM INDICATION: Shortness of breath. History of CLL. Patient apparently has history of ELIER. COMPARISON FILM : CTA chest 08/23/2016. TECHNIQUE: Chest- 1 - view, 1 - images FINDINGS: Upright AP film obtained. Interval removal of previously present Rlnqhu-m-Xfiz. Mild cardiomegaly. Calcified aortic knob. Central pulmonary congestion with interstitial changes suggestive of CHF. In addition there is patchy groundglass opacity in the left midlung laterally which could represent pneumonia. Lungs questionable very minimal blunting left costophrenic angle, no significant size effusions. No pneumothorax. No acute bony abnormality. Procedure Note Jamshid Webber MD - 03/26/[address] [address] EXAM DESCRIPTION: Chest 1 view EXAM TIME : 03/26/2024 10:44 AM INDICATION: Shortness of breath. History of CLL. Patient apparently hashistory of ELIER. COMPARISON FILM : CTA chest 08/23/2016. TECHNIQUE: Chest- 1 - view, 1 - images FINDINGS: Upright AP film obtained. Interval removal of previously hldadgqFordxw-y-Fvng. Mild cardiomegaly. Calcified aortic knob. Centralpulmonary congestion [...] * TYPE & SCREEN (03/26/2024 9:58 AM MILL LABOR SUPERVISOR) UNITS ORDERED 1 03/26/2024 10:20 [address] MILL [address]PER[address]OR [facility] ABO/RH A POSITIVE 03/26/2024 10:54 AM MILL LABOR SUPERVISOR [facility] ANTIBODY SCREEN NEGATIVE 03/26/2024 10:54 AM MILL LABOR SUPERVISOR [facility] SAMPLE EXPIRATION 03/29/2024,2 359 03/26/2024 10:09 AM MILL [address]OR SUPERVISOR [facility] 03/26/2024 9:58 AM MILL LABOR SUPERVISOR Mik Kim PA-C BLOOD BANK TEST ORDERABLES Final Result [facility] [address] [place] [address], [place] [phone] [id number] * (ABNORMAL) PROTIME/INR, VENOUS (PROTHROMBIN TIME) (03/26/2024 8:28 AM MILL LABOR SUPERVISOR) PROTIME 14.3(H) 9.4 - 12.5 SEC 03/26/2024 9:06 AM [facility] INR 1.2(H) 0.8 - 1.1 03/26/2024 9:06 AM [facility] 03/26/2024 8:28 AM MILL LABOR SUPERVISOR Dawson Linton MD LABORATORY Final Result [facility] [address] [place] [address], [id number] * (ABNORMAL) CBC W/DIFF AUTOMATED (03/26/2024 8:28 AM MILL LABOR SUPERVISOR) Pathologist [facility] WBC 6.16 4.00 - 10.80 x10'3/uL 03/26/2024 9:26 AM [facility] RBC 2.39(L) 4.10 - 5.40 x10'6/uL 03/26/2024 9:26 AM [facility] HGB 6.7(LL) 12.0 - 16.0 G/DL 03/26/2024 9:26 AM [facility] Comment: This result has been called to [id number] IN RADIOLOGY by [id number] on 03/26/2024 09:24:23, and has been read back. HCT 21.8(L) 36.0 - 47.0 % 03/26/2024 9:26 AM [facility] MCV 91.2 78.0 - 100.0 FL 03/26/2024 9:26 AM [facility] MCH 28.0 27.0 - 31.0 PG 03/26/2024 9:26 AM [facility] MCHC 30.7(L) 33.0 - 36.0 G/DL 03/26/2024 9:26 AM [facility] RDW 17.1(H) 11.5 - 14.5 % 03/26/2024 9:26 AM [facility] PLT 48(L) 150 - 350 x10'3/uL 03/26/2024 9:26 AM [facility] MPV 10.8(H) 7.4 - 10.4 FL 03/26/2024 9:26 AM [facility] DIFFERENTIAL TYPE MANUAL DIFFERENTIAL 03/26/2024 9:29 AM [facility] NRBC % 0.0 % 03/26/2024 9:29 AM [facility] SEG NEUTROPHILS 70 % 9:29 AM [facility] LYMPHOCYTES 22 % 03/26/2024 9:29 AM [facility] MONOCYTES 4 % 03/26/2024 9:29 AM [facility] EOSINOPHILS 3 % 03/26/2024 9:29 AM [facility] BASOPHILS 1 % 03/26/2024 9:29 AM [facility] ABS. NEUTROPHILS 4.31 1.60 - 8.30 x10'3/uL 03/26/2024 9:29 AM [facility] ABS. LYMPHOCYTES 1.36 0.80 - 4.70 x10'3/uL 03/26/2024 9:29 AM [facility] ABS. MONOCYTES 0.25 0.00 - 1.50 x10'3/uL 03/26/2024 9:29 AM [facility] ABS. EOSINOPHILS 0.18 0.00 - 0.40 x10'3/uL 03/26/2024 9:29 AM [facility] ABS. BASOPHILS 0.06 0.00 - 0.20 x10'3/uL 03/26/2024 9:29 AM [facility] ABS. NUCLEATED RBC'S 0.00 0.00 - 0.01 x10'3/uL 03/26/2024 9:29 AM [facility] RBC MORPHOLOGY SLIDE REVIEWED 2024 9:29 AM MILL LABOR SUPERVISOR [facility] ANISO SLIGHT 03/26/2024 9:29 AM MILL LABOR SUPERVISOR [facility] POIKLO SLIGHT 03/26/2024 9:29 AM MILL LABOR SUPERVISOR [facility] HYPOCHROMASIA SLIGHT 03/26/2024 9:29 AM MILL LABOR SUPERVISOR [facility] OVALOCYTES PRESENT 03/26/2024 9:29 AM MILL LABOR SUPERVISOR [facility] TEAR DROP PRESENT 03/26/2024 9:29 AM MILL LABOR SUPERVISOR [facility] PLT EST. DECREASED 03/26/2024 9:29 AM [facility] 03/26/2024 8:28 AM MILL LABOR SUPERVISOR Dawson Linton MD LABORATORY Final Result Performing Organization Address City/State/[facility] Co de Phone Number [facility] [address] [place] [address], [phone] * Pathology (03/26/2024 12:00 AM MILL LABOR SUPERVISOR) PATHOLOGY [facility] Department of Laboratory Medicine [address] [place] [address] , extension [phone] Pathology Report Addendum Bone Marrow Report Name: CICI HUTCHINSON Specimen #: [id number] Age: 2 1945 (Age: 78) Location: [facility] Sex: F Procedure Date: 03/26/2024 Hospital #: [id number] Date Received: 03/26/2024 Date Reported: 04/08/2024 Provider: [...] similar finding in the marrow at the [facility], see their report [id number]. There is no evidence of transformation in [...] with a patient label and as BM KG , is a 2.5 x 1.4 x 0.4 cm portion of red-brown clot material. The specimen is entirely submitted in cassette A1. B. Received in B-plus fixative, labeled with a patient label and as BX KG , is a needle core biopsy of rodriges-brown bony tissue that is 1.1 cm in greatest dimension. The specimen is entirely submitted in cassette B1 following decalcification in Immunodecal. Gross examination (when applicable) was performed at [facility], [address] [place] [address]. This case was interpreted and signed out at [facility], [address] [place] [address]. All immunohistochemical and histochemical tests were developed by and performed at [facility], [address] [place] [address]. All tests reported here have not been [...] 03/26/2024 By: ZACK BEE Date Reported: [facility] 03/26/2024 03/26/2024 1:3 0 PM MILL LABOR SUPERVISOR Comment:Bone marrow aspirati on right iliac&Bone marrow biopsy right iliac us Judi Arreaga MD PATHOLOGY/CYTOLOGY OR DERABLES Final Result [facility] [address] [place] [address], [phone] from Last 3 Months Insurance [employer] [employer] Address: [address] [address] [place] [address] [employer] Address: ATTN CLAIMS [address] [place] [address] Care Teams Tariff Clerk Relationship Specialty Start Date End Date Non-Staff, Provider PCP - General UNKNOWN PHYSICIAN SPECIALTY 12/25/23
--- OUTSIDE RECORDS SUMMARY | 2024-05-05 09:07 | XMS_ITS | Encounter Summary ---
Author Organization [facility] Address [facility] [place] [address] Care Team Providers Care Iron Launder Operator Name Role Phone Non-Staff, Provider Primary Care Provider Luis troncoso Reason for Visit * Reason Onset Date Comments Preprocedure Call 03/19/[address] Nguyen's office and they will fax over signed office notes from 03/16/24 appt Encounter Details Date Type Department Care Team (Latest Contact Info) Description 03/19/2024 Pre-Procedure Call [facility] Interventional Radiology [address] [place] [address] Randee Alas RN Preprocedure Call (Spoke with [...] Sex Assigned at Female 03/26/2024 8:00 AM PICU NURSE Legal Sex Female 11:03 PM PICU NURSE Gender Identity Not on file Sexual Orientation [...] on filedocumented in this encounter Care Teams Iron Launder Operator Relationship Specialty Start Date End Date Non-Staff, Provider PCP - General UNKNOWN PHYSICIAN SPECIALTY 12/25/23 documented as of this encounter
--- OUTSIDE RECORDS SUMMARY | 2024-05-05 09:07 | XMS_ITS ---
Author Organization [facility] Address [address] [place], [place] [id number] Care Team Providers Care Automobile Service Writer Name Role Phone [facility] Unavailable [phone] Jonathon Nguyen Unavailable Unavailable BILL PEREZ Unavailable [phone] REASON FOR VISIT *General care Medications Medication SIG (Take, Route, Frequency, Duration) Notes Start Date End Date Status aspirin 81 MG Delayed Release Oral Tablet [[address] Aspirin] ORAL aspirin 81 MG Delayed Release Oral Tablet [[address] Aspirin]Original Medicationaspirin 81 MG Delayed Release Oral Tablet [[address] Aspirin] *Reorder from [facility] for eRx and Interaction Alerts* 07/20/2012 Active chondroitin sulfates 250 MG Oral Capsule ORAL chondroitin sulfates 250 MG Oral CapsuleOriginal Medicationchondroitin sulfates 250 MG Oral Capsule *Reorder from [facility] for eRx and Interaction Alerts* 07/20/2012 Active Glucosamine Sulfate 500 MG Oral Tablet ORAL glucosamine sulfate 500 MG Oral TabletOriginal Medicationglucosamine sulfate 500 MG Oral Tablet *Reorder from [facility] for eRx and Interaction Alerts* 07/20/2012 Active Magnesium Gluconate 550 MG Oral Tablet ORAL magnesium gluconate 550 MG Oral TabletOriginal Medicationmagnesium gluconate 550 MG Oral Tablet *Reorder from [facility] for eRx and Interaction Alerts* 07/20/2012 Active Encounters Encounter Location Date Provider Diagnosis [address] [id number] 11/13/2023 BILL PEREZ Tinea unguium B35.1 ; Pain in right toe(s) M79.674 ; Pain in left toe(s) M79.675 ; Other hammer toe(s) (acquired), right foot M20.41 ; Other hammer toe(s) (acquired), left foot M20.42 ; Unspecified atherosclerosis of [place] arteries of extremities, bilateral legs I70.203 and [...] (ICD-10 - M20.42) 11/13/2023 Unspecified atherosclerosis of [place] arteries of extremities, bilateral legs (ICD-10 - [...] conservative options were emphasized. Unspecified atherosclerosis of [place] arteries of extremities, bilateral legs Patient educated [...] CICI HUTCHINSON KDOB:[birth year] (78 yo F)Acc No.[id number]:11/13/2023 Patient: CICI DEAN Provider: Livan PEREZ :1945 A ge:78 Y S ex:Female Date:11/13/2023 Address:[address] [place] [address], [place] [address] Subjective: * Chief Complaints: * 1 . *General care. * HPI: H PI: General care P atient presents to the office for diabetic foot care. Patient states that their nails are thickened, elongated and painful. Patient states that it is aggravated by shoe gear. Onset is gradual., Patient denies taking blood thinners., Date last seen by Dr. Nguyen was 10/2023., Initials [facility]. * ROS: G eneral / Constitutional: Patient denies w eakness. R espiratory: Patient denies c hronic cough, shortness of breath, sputum production. C ardiovascular: Patient denies c hest pain, history of KS, irregular heartbeat. M usculoskeletal: Patient complains of [...] gluconate 550 MG Oral Tablet *Reorder from [employer] for eRx and Interaction Alerts*, Taking Glucosamine Sulfate 500 MG Oral Tablet ORAL , Notes to Pharmacist: glucosamine sulfate 500 MG Oral TabletOriginal Medicationglucosamine sulfate 500 MG Oral Tablet *Reorder from [facility] for eRx and Interaction Alerts*, Taking aspirin 81 MG Delayed Release Oral Tablet [[address] Aspirin] ORAL , Notes to Pharmacist: aspirin 81 MG Delayed Release Oral Tablet [[address] Aspirin]Original Medicationaspirin 81 MG Delayed Release Oral Tablet [[address] Aspirin] *Reorder from [facility] for eRx and Interaction Alerts*, Taking chondroitin sulfates 250 MG Oral Capsule ORAL , Notes to Pharmacist: chondroitin sulfates 250 MG Oral CapsuleOriginal Medicationchondroitin sulfates 250 MG Oral Capsule *Reorder from [facility] for eRx and Interaction Alerts* Objective: [...] M20.42 6 . U nspecified atherosclerosis of [place] arteries of extremities, bilateral legs - I70.203 [...] were emphasized. 3. U nspecified atherosclerosis of [place] arteries of extremities, bilateral legs Notes: Patient [...] Information: * Visit Code: * Procedure Codes: 68855 DEBRIDE NAIL, 6 OR MORE. Modifiers: Q8 * Sign off status: Completed true * Provider: Livan PEREZ Date: 0 11/13/2023 Generated for Rigoberto smith/Adali/Sharon on: 0 05/05/2024 09:[address] PHOTOGRAPHER History and Physical Notes * HPI (History [...]
[2024-05-05 11:20] LABS: Basophils Absolute Auto 0.03 K/mm3 (0.00-0.10); Basophils Percent Auto 0.5 % (0.0-1.0); Eosinophils Absolute Auto 0.16 K/mm3 (0.02-0.50); Eosinophils Percent Auto 2.5 % (1.0-6.0); Hematocrit 27.3 % (35.0-42.0); Hemoglobin 8.2 g/dL (11.7-13.8); Immature Granulocyte Absolute 0.04 K/mm3 (0.00-0.00); Immature Granulocyte Percent A 0.6 % (0.0-0.0); Immature Platelet Fraction Pct 1.7 % (1.0-7.0); Immature Reticulocyte Fraction 16.6 % (2.0-16.52); Lymphocytes Absolute Auto 1.94 K/mm3 (1.10-4.50); Lymphocytes Percent Auto 30.5 % (18.0-42.0); Mean Corpuscular Volume 89.8 fL (78.0-102.0); Mean Platelet Volume 9.5 fl (9.2-11.8); Monocytes Absolute Auto 0.44 K/mm3 (0.10-0.90); Monocytes Percent Auto 6.9 % (2.0-11.0); Neutrophils Absolute Auto 3.75 K/mm3 (1.70-7.20); Platelet Count Result 66 K/mm3 (150-420); Red Blood Count 3.04 M/mm3 (4.20-5.40); Red Cell Distribution Width 18.5 % (11.6-14.4); Reticulocyte Hemoglobin Conten 30.7 pg (28.0-35.0); Reticulocytes Absolute 0.06 M/mm3 (0.02-0.10); White Blood Count 6.4 K/mm3 (4.8-10.8)
[2024-05-05 22:21] LABS: Alanine Aminotransferase 27 U/L (14-59); Albumin Level 2.9 g/dL (3.4-5.0); Alkaline Phosphatase 125 U/L (46-116); Anion Gap 7 mmol/L (4-12); Aspartate Amino Transferase 41 U/L (15-37); Bilirubin,Total 0.5 mg/dL (0.00-1.00); Blood Urea Nitrogen 15 mg/dL (7-18); Calcium 8.5 mg/dL (8.5-10.1); Carbon Dioxide 29 mmol/L (21-32); Chloride 105 mmol/L (98-108); Estimated Glomerular Filt Rate 56; Sodium 141 mmol/L (136-145); Total Protein 6.3 g/dL (6.4-8.2)
[2024-05-05 22:35] LABS: Glucose 100 mg/dL (70-99); Osmolality Calculated 292 mOsm/kg (285-295)
[2024-05-06 09:04] LABS: Hepatitis B Surface Antigen NON-REACTIVE (NON-REACTIVE)
[2024-05-06 11:59] LABS: Hepatitis A Antibody IgM NON-REACTIVE (NON-REACTIVE); Hepatitis B Core Antibody NON-REACTIVE (NON-REACTIVE); Hepatitis C Virus Antibody NON-REACTIVE (NON-REACTIVE)
[2024-05-07 05:48] LABS: Haptoglobin 121 mg/dL (43-212)
== END 2024-05-05 08:45 | disposition home or self-care (01) ==
PROVIDERS: PCP Internal Medicine; Visit Provider Internal Medicine Pulmonary Disease
DX: C50.919 Malignant neoplasm of unspecified site of unspecified female breast (principal); Z87.01 Personal history of pneumonia (recurrent); J47.9 Bronchiectasis, uncomplicated; R59.0 Localized enlarged lymph nodes; R91.8 Other nonspecific abnormal finding of lung field; K74.60 Unspecified cirrhosis of liver; R16.1 Splenomegaly, not elsewhere classified
CPT/HCPCS: 36415; 71260; 80053; 80074; 83010; 85025; 85046; 85055; 86850; 86880; 86900; 86901; 86902; Q9967

== ENCOUNTER 2024-05-25 13:41 | Outpatient (CLI) | payer MEDICARE, SELFPAY ==
--- NOTE | 2024-05-25 13:47 | ECHO_ITS ---
Patient Info Name: Elayne Salmeron Age: 79 years : 1945 Gender: Female Ht: 59 in Wt: 145 lbs BSA: 1.68 m2 HR: 64 bpm BP: 132 / 61 mmHg Heart Rhythm: Sinus Rhythm Technical Quality: Fair Exam Date: 05/25/2024 1:11 PM Exam Location: Echo Lab Patient Status: Outpatient Admit Date: 05/25/2024 Staff Ordering Physician: Pema Kinsey MD Socially Responsible Investment Adviser: Ashley Fry RDCS Attending Provider: Pema Kinsey MD Exam Type: CA echo doppler color flow Study Info Indications - Cardiotoxic drug thepapy Complete two-dimensional, color flow and Doppler transthoracic echocardiogram is performed. Summary 1. Complete two-dimensional, color flow and Doppler transthoracic echocardiogram is performed. 2. Left ventricular chamber dimension is normal. 3. Left ventricular systolic function is normal, estimated at 60-65%. 4. There is mild concentric increased left ventricular wall thickness. 5. The left ventricular diastolic function is abnormal. 6. E/e' 13 is mildly elevated. 7. Left atrial chamber dimension is moderately enlarged. 8. The aortic valve is not well visualized. Cannot determine number of aortic valve leaflets. 9. There is severe aortic valve sclerosis. 10. There is moderate aortic valve stenosis with a peak velocity of 263 cm/s, mean gradient of 16 mmHg, and aortic valve area of 1.4 cm2. 11. The mitral valve has moderately calcified annulus. 12. There is mild mitral valve regurgitation. Left Ventricle E/e' 13 is mildly elevated. Left ventricular chamber dimension is normal. Left ventricular systolic function is normal, estimated at 60-65%. There is mild concentric increased left ventricular wall thickness. The left ventricular diastolic function is abnormal. Right Ventricle Right ventricular systolic function is normal and with normal TAPSE 2.6 cm. Right ventricular chamber dimension is normal. Left Atria Left atrial chamber dimension is moderately enlarged. Right Atria Right atrial chamber dimension is normal. Aortic Valve The aortic valve is not well visualized. Cannot determine number of aortic valve leaflets. There is severe aortic valve sclerosis. There is moderate aortic valve stenosis with a peak velocity of 263 cm/s, mean gradient of 16 mmHg, and aortic valve area of 1.4 cm2. There is no aortic valve regurgitation. Pulmonic Valve There is no pulmonic regurgitation. Mitral Valve The mitral valve has moderately calcified annulus. There is no mitral valve stenosis. There is mild mitral valve regurgitation. Tricuspid Valve There is no tricuspid valve regurgitation. Pericardium/Pleural There is no pericardial effusion. Inferior Vena Cava Normal inferior vena cava with >50% collapse upon inspiration consistent with normal right atrial pressure, 5 mmHg. Aorta The aortic root size at the sinus of Valsalva is normal. Left Ventricular Outflow Tract Name Value Normal LVOT 2D LVOT Diameter 1.9 cm LVOT Doppler LVOT Peak Velocity 112 cm/s LVOT Peak Gradient 5 mmHg LVOT Mean Gradient 0 mmHg LVOT VTI 34 cm LVOT VTI/AV VTI Ratio 0.5 LVOT Stroke Volume 92 ml Pulmonic Valve Name Value Normal RVOT Doppler RVOT Peak Gradient 2 mmHg PV Doppler PV Peak Velocity 103 cm/s PV Peak Gradient 4 mmHg Mitral Valve Name Value Normal MV Doppler MV Decel Holt 389 cm/s2 MV PHT 66 ms MV Area (PHT) 3.3 cm2 4.0-5.0 MV Diastolic Function MV E Peak Velocity 89 cm/s MV A Peak Velocity 66 cm/s MV E/A 1.3 MV Decel Time 229 ms Tricuspid Valve Name Value Normal TV Regurgitation Doppler TR Peak Velocity 244 cm/s TR Peak Gradient 24 mmHg Estimated PAP/RSVP RA Pressure 5 mmHg <=5 PA Systolic Pressure 29 mmHg <36 RV Systolic Pressure 29 mmHg <36 Aortic Valve Name Value Normal AV Doppler AV Peak Velocity 263 cm/s AV Peak Gradient 28 mmHg AV Mean Gradient 16 mmHg AV VTI 66 cm AV Area (Cont Eq VTI) 1.4 cm2 >=3.0 AV Area (Cont Eq Kristopher) 1.2 cm2 AV V1/V2 Ratio 0.43 AV Regurgitation 2D LVOT Area 2.7 cm2 Ventricles Name Value Normal LV Dimensions 2D/MM IVS Diastolic Thickness (2D) 1.3 cm 0.6-1.0 LVID Diastole (2D) 4.4 cm 3.8-5.2 LVIW Diastolic Thickness (2D) 1.0 cm 0.6-0.9 LVID Systole (2D) 2.6 cm 2.2-3.5 LVOT Diameter 1.9 cm LV Mass (2D Cubed) 176.47 g 67.00-162.00 LV Mass Index (2D Cubed) 105 g/m2 43-95 Relative Wall Thickness (2D) 0.47 LV Fractional Shortening/Ejection Fraction 2D/MM LV Fractional Shortening (2D) 41 % 27-45 LV EF (2D Teicholz) 72 % 54-74 LV Diastolic Volume (4C MOD) 139 ml LV EF (4C MOD) 69 % LV Diastolic Volume (2C MOD) 120 ml LV EF (2C MOD) 70 % LV Diastolic Volume (BP MOD) 130 ml 46-106 LV Diastolic Volume Index (BP MOD) 77 ml/m2 29-61 LV Systolic Volume (BP MOD) 41 ml 14-42 LV Systolic Volume Index (BP MOD) 25 ml/m2 8-24 LV EF (BP MOD) 68 % 54-74 LV Diastolic Length (4C) 8.2 cm LV Systolic Length (4C) 5.8 cm LV Stroke Volume (4C MOD) 95 ml Atria Name Value Normal LA Dimensions LA Volume (4C A-L) 67 ml RA Dimensions RA Area (4C) 16.3 cm2 <=18.0 Report Signatures
--- OUTSIDE RECORDS SUMMARY | 2024-05-25 15:56 | XMS_ITS ---
Author Organization [facility] Care Team Providers Care Reception Centre Manager Name Role Phone Jonahton Nguyen Unavailable Unavailable Allergies and adverse reactions Code CodeSystem Substance Reaction Severity StartDate Concern Status 6809 RXNORM metFORMIN Nausea (code- 4 35237912, SNOMED CT) Unknown 06/06/2021 active Care Team Name Role Address Phone Organization Dates Jonathon Wendy PCP [address] [place], [address], [place] (Office): : [facility] 06/06/2021 - 07/14/2021 Immunizations Immunization Status Vaccine Details Vaccine Code CodeSystem Date Notes Influenza completed Influenza, high-dose, split virus, quadrivalent, injectable, preservative free 197 CVX created date: 2 administe red date: 1 TB 2 Step Mantoux Skin Test completed tuberculin skin test; unspecified formulation lotNumber: [id number] expiry: 08/17/2022 Mfg: SANOFI PASTEUR Given 0.1 ml Left Forearm intradermally Step 2 of Multi-step with next step required 98 CVX created date: 2 consent date: 2 administe red date: 2 Educated by Karrie Jc on 06/21/2021 TB 2 Step Mantoux Skin Test completed tuberculin skin test; unspecified formulation expiry: 08/17/2022 Given 0.1 ml Left Forearm subcutaneously Step 1 of Multi-step with next step required 98 CVX created date: 2 consent date: 2 administe red date: 2 Educated by Karrie Jc on 06/07/2021 Prevnar 13 completed pneumococcal conjugate vaccine, 13 valent Given intramuscularly 133 CVX created date: 2 administe red date: 6 Pneumococcal polysaccharide vaccine (PPSV23) completed pneumococcal polysaccharide vaccine, 23 valent 33 CVX created date: 2 administe red date: 4 Mental Status Section Date Assessment Total Score Description 07/14/2021 BIMS 13 cognitively int act CAM 0 No delirium ind icated PHQ-9 03 minimal depress ion 06/13/2021 BIMS 13 cognitively int act CAM 0 No delirium ind icated PHQ-9 03 minimal depress ion Problems Problem # Description Date of onset Resolved Date Code CodeSystem Concern Status 1 DIFFICULTY IN WALKING, NOT ELSEWHERE CLASSIFIED 06/07/[address] active 2 ABNORMAL POSTURE 06/06/[address] a ctive 3 BODY MASS INDEX [BMI] 33.0-33.9, ADULT 06/06/[address] active 4 DISPLACED FRACTURE OF FIFTH METATARSAL BONE, LEFT FOOT, SUBSEQUENT ENCOUNTER FOR FRACTURE WITH ROUTINE HEALING 06/06/[address] active 5 OTHER IDIOPATHIC PERIPHERAL AUTONOMIC NEUROPATHY 06/06/[address] active 6 UNSPECIFIED FRACTURE OF UPPER END OF RIGHT HUMERUS, SUBSEQUENT ENCOUNTER FOR FRACTURE WITH ROUTINE HEALING 06/06/[address] active 7 CHRONIC KIDNEY DISEASE, STAGE 3 UNSPECIFIED 06/05/[address] active 8 CHRONIC OBSTRUCTIVE PULMONARY DISEASE, UNSPECIFIED 06/05/[address] active 9 ESSENTIAL (PRIMARY) HYPERTENSION 06/05/[address] active 10 GOUT, UNSPECIFIED 06/05/[address] active 11 IRON DEFICIENCY ANEMIA, UNSPECIFIED 06/05/[address] active 12 PRIMARY OSTEOARTHRITIS, OTHER SPECIFIED SITE 06/05/[address] active 13 PURE HYPERCHOLESTEROLEM IA, UNSPECIFIED 06/05/[address] active 14 TYPE 2 DIABETES MELLITUS WITH DIABETIC NEPHROPATHY 06/05/[address] active 15 TYPE 2 DIABETES MELLITUS WITH UNSPECIFIED DIABETIC RETINOPATHY WITHOUT MACULAR EDEMA 06/05/[address] active Reason for Referral No Reasons for Referral Entered Social History Social History Observation Description Start Date End Date Code Code System Current Smoking Status Tobacco smoking consumption unknown 418153930 SNOMED CT Sex Assigned At Female 1945 52347-0 [facility] Vital Signs Code Code System Vitals Name Values and Units Timing Information 2339-0 [facility] Blood Sugar Gekhx=503.0 Units=mg/dL 07/14/2021 9279-1 [facility] Respiratory Rate Value=18.0 Units=/m in 07/14/2021 8462-4 [facility] Blood Pressure-Diastolic Value=60 Un its=mmHg 07/14/2021 8480-6 [facility] Blood Pressure-Systolic Egpdl=770 Un its=mmHg 07/14/2021 8310-5 [facility] Body Temperature Value=98.2 Units= F 07/14/2021 8867-4 [facility] Heart rate Value=68.0 Units=/min 83750-5 [facility] O2 % BldC Oximetry Value=98.0 Units= % 07/14/2021 04741-1 [facility] Weight Rdxzd=090.7 Units=Lbs 12/2021 8302-2 [facility] Height Value=59.0 Units=Inches 06/07/2021
--- OUTSIDE RECORDS SUMMARY | 2024-05-25 15:56 | XMS_ITS | Encounter Summary ---
Author Organization [facility] Address [address] [place] [address] Care Team Providers Care Senior Db2 Systems Programmer Name Role Phone Non-Staff, Provider Primary Care Provider Luis troncoso Encounter Details Date Type Department Care Team (Late st Contact Info) Description 05/20/2024 Hospital Orders Only [facility] [address] [place] [address] Pema Kinsey MD [address] [facility] 1st [place] [address] Social History Tobacco Use Types Packs/Day Years Used Date Smoking Tobacco: Never Smokeless Tobacco: Never Alcohol Use Standard Drinks/Week Comments Not Currently 0 (1 standard drink = 0.6 oz pur e alcohol) Comments Unknown Sex and Gender Information Value Date Recorded Sex Assigned at Female 03/26/2024 8:00 AM DENTURE PROCESSOR Legal Sex Female 11:03 PM DENTURE PROCESSOR Gender Identity Not on file Sexual Orientation [...] on filedocumented in this encounter Care Teams Senior Db2 Systems Programmer Relationship Specialty Start Date End Date Non-Staff, Provider PCP - General UNKNOWN PHYSICIAN SPECIALTY 12/25/23 documented as of this encounter
--- OUTSIDE RECORDS SUMMARY | 2024-05-25 15:56 | XMS_ITS ---
Author Organization [facility] Address [address] [place], [place] [id number] Care Team Providers Care Real Estate Investment Analyst Name Role Phone CHI GIBSON Unavailable [phone] Jonathon Nguyen Unavailable Unavailable REASON FOR VISIT *General care Encounters Encounter Location Date Provider Diagnosis [address] [id number] 04/22/2024 CHI GIBSON Plan Of Treatment No Information Progress Notes * CICI HUTCHINSON KDOB:[birth year] (79 yo F)Acc No.[id number]:04/22/2024 Patient: MARIA ELENA DEANLIAndres Mar Provider: Andres Gibson DPM :1945 A ge:78 Y S ex:Female Date:04/22/2024 Address:[address] [place] [address], [address] Subjective: * Chief Complaints: * 1 . *General care. * Medical History: Objective: * Vitals: Assessment: Plan: * Treatment: * Billing Information: * Visit Code: * Procedure Codes: * Electronic signature of CHI GIBSON DPM on 05/25/2024 at 03:56 PM CDT Sign off status: Pending * Provider: Andres Gibson DPM Date: 04/22/2024 Generated for Printi ng/Faxing/eTransmitting on: 0 05/25/2024 03:56 PM CDT
--- OUTSIDE RECORDS SUMMARY | 2024-05-25 15:56 | XMS_ITS | Encounter Summary ---
Author Organization [facility] Address [address] [place] [address] Care Team Providers Care Commercial Crabber Name Role Phone Non-Staff, Provider Primary Care Provider Luis troncoso Encounter Details Date Type Department Care Team (Late st Contact Info) Description 03/27/2024 [facility] Documentation [place] [place] [address] Pema Kinsey MD [address] [place], [place] [address] Social History Tobacco Use Types Packs/Day Years Used Date Smoking Tobacco: Never Smokeless Tobacco: Never Alcohol Use Standard Drinks/Week Comments Not Currently 0 (1 standard drink = 0.6 oz pur e alcohol) Comments Unknown Sex and Gender Information Value Date Recorded Sex Assigned at Female 03/26/2024 8:00 AM SERVICES COORDINATOR Legal Sex Female 11:03 PM SERVICES COORDINATOR Gender Identity Not on file Sexual Orientation [...] on filedocumented in this encounter Care Teams Commercial Crabber Relationship Specialty Start Date End Date Non-Staff, Provider PCP - General UNKNOWN PHYSICIAN SPECIALTY 12/25/23 documented as of this encounter
--- OUTSIDE RECORDS SUMMARY | 2024-05-25 15:56 | XMS_ITS | Patient Health Record ---
Author Organization [facility] Address [address] [place], [place] [id number] Care Team Providers Care Client Support Consultant Name Role Phone CHI GIBSON Unavailable [phone] Jonathon Nguyen Unavailable Unavailable BILL PEREZ Unavailable [phone] Allergies No Known Allergies Reason For Referral No Information Medications Medication SIG (Take, Route, Frequency, Duration) Notes Start Date End Date Status chondroitin sulfates 250 MG Oral Capsule ORAL chondroitin sulfates 250 MG Oral CapsuleOriginal Medicationchondroitin sulfates 250 MG Oral Capsule *Reorder from Apieron for eRx and Interaction Alerts* 07/20/2012 Active aspirin 81 MG Delayed Release Oral Tablet [[employer] Aspirin] ORAL aspirin 81 MG Delayed Release Oral Tablet [[employer] Aspirin]Original Medicationaspirin 81 MG Delayed Release Oral Tablet [[employer] Aspirin] *Reorder from Apieron for eRx and Interaction Alerts* 07/20/2012 Active Glucosamine Sulfate 500 MG Oral Tablet ORAL glucosamine sulfate 500 MG Oral TabletOriginal Medicationglucosamine sulfate 500 MG Oral Tablet *Reorder from Apieron for eRx and Interaction Alerts* 07/20/2012 Active Magnesium Gluconate 550 MG Oral Tablet ORAL magnesium gluconate 550 MG Oral TabletOriginal Medicationmagnesium gluconate 550 MG Oral Tablet *Reorder from Apieron for eRx and Interaction Alerts* 07/20/2012 Active Immunizations Vaccine Route Administration Date Status Comme nts Influenza, high dose seasonal Unknown 12/19/2022 Admini stered Vital Signs Height-cm 149.86 cm 07/10/2023 Weight-kg 69.85 kg 07/10/2023 Height 59.00 in 07/10/2023 Weight 154 lbs 07/10/2023 BMI 31.1 kg/m2 07/10/2023 Encounters Encounter Location Date Provider Diagnosis [address] [id number] 07/10/2023 BILL PEREZ Tinea unguium B35.1 ; Pain in right toe(s) M79.674 ; Pain in left toe(s) M79.675 ; Other hammer toe(s) (acquired), right foot M20.41 ; Other hammer toe(s) (acquired), left foot M20.42 ; Unspecified atherosclerosis of [place] arteries of extremities, bilateral legs I70.203 and Type 2 diabetes mellitus with other circulatory complications E11.[address] [id number] 09/11/2023 BILL PEREZ Tinea unguium B35.1 ; Pain in right toe(s) M79.674 ; Pain in left toe(s) M79.675 ; Other hammer toe(s) (acquired), right foot M20.41 ; Other hammer toe(s) (acquired), left foot M20.42 ; Unspecified atherosclerosis of [place] arteries of extremities, bilateral legs I70.203 and Type 2 diabetes mellitus with other circulatory complications E11.[address] [id number] 11/13/2023 BILL PEREZ Tinea unguium B35.1 ; Pain in right toe(s) M79.674 ; Pain in left toe(s) M79.675 ; Other hammer toe(s) (acquired), right foot M20.41 ; Other hammer toe(s) (acquired), left foot M20.42 ; Unspecified atherosclerosis of [place] arteries of extremities, bilateral legs I70.203 and Type 2 diabetes mellitus with other circulatory complications E11.59 [place] [place], [place] [id number] 01/22/2024 BILL PEREZ Tinea unguium B35.1 ; Pain in right toe(s) M79.674 ; Pain in left toe(s) M79.675 ; Other hammer toe(s) (acquired), right foot M20.41 ; Other hammer toe(s) (acquired), left foot M20.42 ; Unspecified atherosclerosis of [place] arteries of extremities, bilateral legs I70.203 and Type 2 diabetes mellitus with other circulatory complications E11.59 Assessments Encounter Date Diagnosis (ICD Code) Assessment Notes Treatment Notes Treatment Clinical Notes Section Notes 07/10/2023 Tinea unguium (ICD-10 - B35.1) Aseptic [...] in left toe(s) (ICD-10 - M79.675) 07/10/2023 Other hammer toe(s) (acquired), right foot [...] (acquired), left foot (ICD-10 - M20.42) 07/10/2023 Unspecified atherosclerosis of [place] arteries of extremities, 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) Patient educated on risks and aggravating factors of PVD, including conservative treatment options such as a diet and exercise regimen to aid in slowing progression of vascular disease 09/11/2023 Unspecified atherosclerosis of [place] arteries of extremities, 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) Patient educated on risks and aggravating factors of PVD, including conservative treatment options such as a diet and exercise regimen to aid in slowing progression of vascular disease 11/13/2023 Unspecified atherosclerosis of [place] arteries of extremities, 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) Patient educated on risks and aggravating factors of PVD, including conservative treatment options such as a diet and exercise regimen to aid in slowing progression of vascular disease 01/22/2024 Unspecified atherosclerosis of [place] arteries of extremities, bilateral legs (ICD-10 - [...] Date Coverage End Date Medicare Part B [place] [address] [place] [address] [id number] CICI HUTCHINSON Self - patient is the insured [employer] Life Paper Claim [address] [address] [place] [address] [id number] CICI HUTCHINSON Self - patient is the insured
--- OUTSIDE RECORDS SUMMARY | 2024-05-25 15:57 | XMS_ITS | Encounter Summary ---
Author Organization [facility] Address [facility] [place] [address] Care Team Providers Care Hospital Housekeeper Name Role Phone Non-Staff, Provider Primary Care Provider Luis troncoso Reason for Visit * Reason Onset Date Comments Preprocedure Call 03/19/[address] Nguyen's office and they will fax over signed office notes from 03/16/24 appt Encounter Details Date Type Department Care Team (Latest Contact Info) Description 03/19/2024 Pre-Procedure Call [facility] Interventional Radiology [address] [place] [address] Randee Alas RN Preprocedure Call (Spoke with [...] Sex Assigned at Female 03/26/2024 8:00 AM ROOM SERVER Legal Sex Female 11:03 PM ROOM SERVER Gender Identity Not on file Sexual Orientation [...] on filedocumented in this encounter Care Teams Hospital Housekeeper Relationship Specialty Start Date End Date Non-Staff, Provider PCP - General UNKNOWN PHYSICIAN SPECIALTY 12/25/23 documented as of this encounter
--- OUTSIDE RECORDS SUMMARY | 2024-05-25 15:57 | XMS_ITS ---
Author Organization [facility] Address [address] [place], [place] [address] Care Team Providers Care Product Safety Associate Name Role Phone CHI GIBSON Unavailable [phone] Jonathon Nguyen Unavailable Unavailable BILL PEREZ Unavailable [phone] REASON FOR VISIT *General care Medications Medication SIG (Take, Route, Frequency, Duration) Notes Start Date End Date Status chondroitin sulfates 250 MG Oral Capsule ORAL chondroitin sulfates 250 MG Oral CapsuleOriginal Medicationchondroitin sulfates 250 MG Oral Capsule *Reorder from [employer] for eRx and Interaction Alerts* 07/20/2012 Active aspirin 81 MG Delayed Release Oral Tablet [Katelyn Aspirin] ORAL aspirin 81 MG Delayed Release Oral Tablet [[employer] Aspirin]Original Medicationaspirin 81 MG Delayed Release Oral Tablet [[employer] Aspirin] *Reorder from [employer] for eRx and Interaction Alerts* 07/20/2012 Active Glucosamine Sulfate 500 MG Oral Tablet ORAL glucosamine sulfate 500 MG Oral TabletOriginal Medicationglucosamine sulfate 500 MG Oral Tablet *Reorder from [employer] for eRx and Interaction Alerts* 07/20/2012 Active Magnesium Gluconate 550 MG Oral Tablet ORAL magnesium gluconate 550 MG Oral TabletOriginal Medicationmagnesium gluconate 550 MG Oral Tablet *Reorder from [employer] for eRx and Interaction Alerts* 07/20/2012 Active Encounters Encounter Location Date Provider Diagnosis [place] [address] [place], [place] [id number] 01/22/2024 BILL PEREZ Tinea unguium B35.1 ; Pain in right toe(s) M79.674 ; Pain in left toe(s) M79.675 ; Other hammer toe(s) (acquired), right foot M20.41 ; Other hammer toe(s) (acquired), left foot M20.42 ; 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 Unspecified atherosclerosis of benton arteries of extremities, bilateral legs Patient educated [...] CICI HUTCHINSON KDOB:[birth year] (78 yo F)Acc No.[id number]:01/22/2024 Patient: CICI DEAN Provider: Livan PEREZ :1945 A ge:78 Y S ex:Female Date:01/22/2024 Address:[address] [place] [address], [place] [address] Subjective: * Chief Complaints: * 1 . *General care. * HPI: H PI: General care P atient presents to the office for diabetic foot care. Patient states that their nails are thickened, elongated and painful. Patient states that it is aggravated by shoe gear. Onset is gradual., Patient denies taking blood thinners., Date last seen by Dr. Nguyen was 01/2024., Initials [facility]. * ROS: G eneral / Constitutional: Patient denies w eakness. R espiratory: Patient denies c hronic cough, shortness of breath, sputum production. C ardiovascular: Patient denies c hest pain, history of [place], irregular heartbeat. M usculoskeletal: Patient complains of [...] gluconate 550 MG Oral Tablet *Reorder from [employer] for eRx and Interaction Alerts*, Taking Glucosamine Sulfate 500 MG Oral Tablet ORAL , Notes to Pharmacist: glucosamine sulfate 500 MG Oral TabletOriginal Medicationglucosamine sulfate 500 MG Oral Tablet *Reorder from [facility] for eRx and Interaction Alerts*, Taking aspirin 81 MG Delayed Release Oral Tablet [[employer] Aspirin] ORAL , Notes to Pharmacist: aspirin 81 MG Delayed Release Oral Tablet [[employer] Aspirin]Original Medicationaspirin 81 MG Delayed Release Oral Tablet [[employer] Aspirin] *Reorder from [facility] for eRx and Interaction Alerts*, Taking chondroitin sulfates 250 MG Oral Capsule ORAL , Notes to Pharmacist: chondroitin sulfates 250 MG Oral CapsuleOriginal Medicationchondroitin sulfates 250 MG Oral Capsule *Reorder from [facility] for eRx and Interaction Alerts* Objective: [...] M20.42 6 . U nspecified atherosclerosis of benton arteries of extremities, bilateral legs - I70.203 [...] were emphasized. 3. U nspecified atherosclerosis of benton arteries of extremities, bilateral legs Notes: Patient [...] Information: * Visit Code: * Procedure Codes: 79802 DEBRIDE NAIL, 6 OR MORE. Modifiers: Q8 * ARCH INSTRUMENTATION TECHNICIAN Sign off status: Completed true * Provider: Livan PEREZ Date: 03/23/2023 Generated for Rigoberto smith/Adali/Sharon on: 0 05/25/2024 03:56 PM CDT History and Physical Notes * HPI (History [...]
--- OUTSIDE RECORDS SUMMARY | 2024-05-25 15:57 | XMS_ITS ---
Author Organization [facility] Address [address] [place], [place] [id number] Care Team Providers Care Gun Stock Checker Name Role Phone CHI GIBSON Unavailable [phone] Jonathon Nguyen Unavailable Unavailable BILL PEREZ Unavailable [phone] REASON FOR VISIT *General care Medications Medication SIG (Take, Route, Frequency, Duration) Notes Start Date End Date Status aspirin 81 MG Delayed Release Oral Tablet [[employer] Aspirin] ORAL aspirin 81 MG Delayed Release Oral Tablet [[employer] Aspirin]Original Medicationaspirin 81 MG Delayed Release Oral Tablet [[employer] Aspirin] *Reorder from [employer] for eRx and Interaction Alerts* 07/20/2012 Active chondroitin sulfates 250 MG Oral Capsule ORAL chondroitin sulfates 250 MG Oral CapsuleOriginal Medicationchondroitin sulfates 250 MG Oral Capsule *Reorder from [employer] for eRx and Interaction Alerts* 07/20/2012 Active Glucosamine Sulfate 500 MG Oral Tablet ORAL glucosamine sulfate 500 MG Oral TabletOriginal Medicationglucosamine sulfate 500 MG Oral Tablet *Reorder from [employer] for eRx and Interaction Alerts* 07/20/2012 Active Magnesium Gluconate 550 MG Oral Tablet ORAL magnesium gluconate 550 MG Oral TabletOriginal Medicationmagnesium gluconate 550 MG Oral Tablet *Reorder from [employer] for eRx and Interaction Alerts* 07/20/2012 Active Encounters Encounter Location Date Provider Diagnosis [address] [id number] 11/13/2023 BILL PEREZ Tinea unguium B35.1 ; Pain in right toe(s) M79.674 ; Pain in left toe(s) M79.675 ; Other hammer toe(s) (acquired), right foot M20.41 ; Other hammer toe(s) (acquired), left foot M20.42 ; Unspecified atherosclerosis of [place] arteries of extremities, bilateral legs I70.203 and [...] (ICD-10 - M20.42) 11/13/2023 Unspecified atherosclerosis of [place] arteries of extremities, bilateral legs (ICD-10 - [...] conservative options were emphasized. Unspecified atherosclerosis of [place] arteries of extremities, bilateral legs Patient educated [...] CICI HUTCHINSON KDOB:[birth year] (78 yo F)Acc No.[id number]:11/13/2023 Patient: CICI DEAN Provider: Livan PEREZ :1945 A ge:78 Y S ex:Female Date:11/13/2023 Address:[address] [place] [address], [place] [address] Subjective: * Chief Complaints: * 1 . *General care. * HPI: H PI: General care P atient presents to the office for diabetic foot care. Patient states that their nails are thickened, elongated and painful. Patient states that it is aggravated by shoe gear. Onset is gradual., Patient denies taking blood thinners., Date last seen by Dr. Nguyen was 10/2023., Initials [facility]. * ROS: G eneral / Constitutional: Patient denies w eakness. R espiratory: Patient denies c hronic cough, shortness of breath, sputum production. C ardiovascular: Patient denies c hest pain, history of [place], irregular heartbeat. M usculoskeletal: Patient complains of [...] gluconate 550 MG Oral Tablet *Reorder from [employer] for eRx and Interaction Alerts*, Taking Glucosamine Sulfate 500 MG Oral Tablet ORAL , Notes to Pharmacist: glucosamine sulfate 500 MG Oral TabletOriginal Medicationglucosamine sulfate 500 MG Oral Tablet *Reorder from [facility] for eRx and Interaction Alerts*, Taking aspirin 81 MG Delayed Release Oral Tablet [[employer] Aspirin] ORAL , Notes to Pharmacist: aspirin 81 MG Delayed Release Oral Tablet [[employer] Aspirin]Original Medicationaspirin 81 MG Delayed Release Oral Tablet [[employer] Aspirin] *Reorder from [facility] for eRx and Interaction Alerts*, Taking chondroitin sulfates 250 MG Oral Capsule ORAL , Notes to Pharmacist: chondroitin sulfates 250 MG Oral CapsuleOriginal Medicationchondroitin sulfates 250 MG Oral Capsule *Reorder from [facility] for eRx and Interaction Alerts* Objective: [...] M20.42 6 . U nspecified atherosclerosis of [place] arteries of extremities, bilateral legs - I70.203 [...] were emphasized. 3. U nspecified atherosclerosis of [place] arteries of extremities, bilateral legs Notes: Patient [...] Information: * Visit Code: * Procedure Codes: 16719 DEBRIDE NAIL, 6 OR MORE. Modifiers: Q8 * Sign off status: Completed true * Provider: Livan PEREZ Date: 0 11/13/2023 Generated for Rigoberto smith/Adali/Sharon on: 0 05/25/2024 [...]
--- OUTSIDE RECORDS SUMMARY | 2024-05-25 15:57 | XMS_ITS | Data Portability ---
Author Organization [place] [facility] [employer], Main Office Address [address] [place] [address] Care Team Providers Care Brushing Operator Name Role Phone KEANU SANTIAGO Primary Care Provider [phone] KEANU SANTIAGO Referring Provider Assessment Encounter Date [...] more than half the time spent in [id number]-fw-[id number] care. Not available 02/01/2023 14:31:51 03/07/2023 03/07/2023 [...] spent treatment patient more half of this [id number] conversation Not available 03/07/2023 12:20:35 03/28/2023 03/28/2023 [...] knee 024 03/28/19 24 [email or web address] [facility] [place], [address], [place], [address], 4 16:37:40 XR, knee 024 03/07/19 24 [email or web address] [facility] [place], [address], [place], [address], 4 12:21:50 Medication Orders None record ed. Patient TargetsNo targets recorded. Patient InstructionsNo instructions recorded. Reason for Referral None Reported. Results Created Date Observation Date Name Description Value Unit Range Abnormal Flag Note LastModifiedBy Organization Detail LastModifiedTime 06/07/19 22 XR, hand No observ ation record ed. [id number] [facility] [place] [address], [place], [address], 05/02/2022 01:01:26 06/07/19 22 XR, shoul karlie No observ ation record ed. [id number] [facility] [place] [address], [place], [address], 05/02/2022 01:01:26 06/21/19 22 XR, humer us No observ ation record ed. [id number] [facility] [place] [address], [place], [address], 05/02/2022 01:01:26 07/05/19 22 XR, hand No observ ation record ed. [id number] [facility] [place] [address], [place], [address], 05/02/2022 01:01:26 07/05/19 22 XR, shoul karlie No observ ation record ed. [id number] [facility] [place] [address], [place], [address], 05/02/2022 01:01:26 07/28/19 22 07/27/2021 XR, shoul karlie No observ ation record ed. [id number] [facility] [place] [address], [place], [address], 05/02/2022 01:01:26 01/30/20 23 XR, knee No observ ation record ed. [email or web address] Not Available 2022 16:59:15 03/07/19 24 XR, knee No observ ation record ed. [facility] [place] [address], [place], [address], 03/07/2023 12:18:44 03/28/19 24 XR, knee No observ ation record ed. [facility] [place] [address], [place], [address], 03/28/2023 16:31:08 Result Notes None recorded. Problems Name Problem SNOMED Code Status Onset Date Resolution Date Notes Provider Name and Address Organization Details Recorded Time Pain of right shoulder joint 54669659654360 100 Active 2021 Not Available [employer] 3 00:59:39 Fracture of phalanx of finger 93246131 Active 2021 Not Available [facility] 3 00:59:39 Pain of left hand 63078763571959 3 Active 2021 Not Available [facility] 3 00:59:39 Closed fracture of upper end of humerus 58850478 Active 2021 Not Available [facility] 3 00:59:40 Pain of right knee joint 20470347383228 0 Active 2022 NAPOLEON Wan, [facility] 3 12:25:42 Fracture of ankle 81972160 Active 2023 NAPOLEON Wan, [facility] 4 10:58:49 Closed fracture of right patella 61827557251363 100 Active 2023 MONA Red [address] [place] [address], [place] [address], [place], [address] , [facility] 4 11:35:53 Problem Notes None recorded. Procedures Surgical History Date Name Laterality Status Provider Name and Address Organization Details Recorded Time Breast Surgery completed Not Available [facility] 05/02/2022 00:58:24 procedure on hand completed Not Available [facility] 05/02/2022 00:58:24 Cataract Surgery completed Not Available [facility] 05/02/2022 00:58:24 Imaging Results Imaging Date Name Status LastModified by [facility] Details LastModified Time 06/06/2021 XR, hand completed [id number] 026 [facility] [place] [address], [place], [address], 05/02/2022 01:01:26 06/06/2021 XR, shoulder completed [id number] 30 026 [facility] [place] [address], [place], [address], 05/02/2022 01:01:26 06/20/2021 XR, humerus completed [id number] 30 026 [facility] [place] [address], [place], [address], 05/02/2022 01:01:26 07/27/2021 XR, shoulder completed [id number] 30 026 [facility] [place] [address], [place], [address], 05/02/2022 01:01:26 07/04/2021 XR, hand completed [id number] 30 026 [facility] [place] [address], [place], [address], 05/02/2022 01:01:26 07/04/2021 XR, shoulder completed [id number] 30 026 [facility] [place] [address], [place], [address], 05/02/2022 01:01:26 01/29/2023 XR, knee completed [email or web address] Information no t available 01/29/2023 16:59:15 03/07/2023 XR, knee completed [facility] [place] [address], [place], [address], 03/07/2023 12:18:44 03/28/2023 XR, knee completed [facility] [place] [address], [place], [address], 03/28/2023 16:31:08 Procedure Notes None recorded. Medical [...] DateTime 07/04/2021 144.78 cm Not Available [facility] 3 00:58:55 Date Recorded Body height Provider Name an d Address Organization Details Last Updated DateTime 07/27/2021 144.78 cm Not Available [facility] 3 00:58:55 Date Recorded Body height Body mass index (BMI) Body weight Provider Name and Address Organization Details Last Updated DateTime 01/31/2023 144.78 cm 32.9 kg/m2 37050.04 g Krys Campos Mary Jo [facility] [employer] [facility] 01/31/2023 12:39:06 Date Recorded Body height Provider Name an d Address Organization Details Last Updated DateTime 03/07/2023 144.78 cm Krys Campos Mary Jo [facility] [employer] [facility] 03/07/2023 10:57:14 Date Recorded Body height Provider Name an d Address Organization Details Last Updated DateTime 03/28/2023 144.78 cm Michela Gardenia [facility] [employer] [facility] 03/28/2023 14:13:14 Social History Question Answer Notes LastModified by Organizat ion Details LastModified Time Tobacco Smoking Status Never Smoker Not Available [facility] 05/02/2022 00:58:03 What Is Your Level Of Alcohol Consumption? None [id number] Information not available 05/02/2022 Sex: Unknown Functional Status None recorded. Mental Status None recorded. Family History Relationship Description Onset Age of this Age Resolved Age Notes LastModified by Organization Details LastModified Time Father Hypertensive disorder [id number] Not available 05/02/2022 00:58:26 Father Diabetes mellitus [id number] Not available 05/02/2022 00:58:26 Mother Hypertensive disorder [id number] [id number] Not available 05/02/2022 00:58:26 Mother Diabetes mellitus [id number] Not available 05/02/2022 00:58:26 Medical History Condition Response BLINDNESS N KIDNEY STONES N MRSA N CARPAL TUNNEL SYNDROME N LUNG DISEASE/DISORDER N HISTORY OF DRUG ABUSE N RADIATION / CHEMOTHERAPY N COPD N SPORTS INJURY N ANKLE PAIN N BLOOD DISEASES N SCHIZOPHRENIA N SHINGLES N SHOULDER PAIN N BOWEL PROBLEMS N DEPRESSION (INCLUDING POST ) N STROKE/TIA [...] HAVE YOU BEEN HOSPITALIZED OR SEEN IN [facility] IN THE PAST YEAR ? N BURSITIS [...] SNOMED-CT Code Diagnosis ICD10 Code Diagnosis Note [id number] [facility] [place] [address] [place] [address] 05/23/2021 00:00:00 05/27/2021 12:10:32 [id number] [facility] [place] [address] [place] [address] 06/06/2021 00:00:00 06/06/2021 14:59:59 [id number] [facility] [place] [address] [place] [address] 06/20/2021 00:00:00 06/20/2021 10:31:52 [id number] [facility] [place] [address] [place] [address] 07/04/2021 00:00:00 07/04/2021 17:33:55 [id number] [facility] [place] [address] [place] [address] 07/27/2021 00:00:00 07/30/2021 17:54:03 [id number] Christian Olsen MD [facility] [place] [address] [place] [address] 01/31/2023 12:01:28 02/03/2023 10:53:27 Pain of right knee joint 7493934872 01257 M25.675 [id number] MONA Red [facility] [place] [address] [place] [address] 03/07/2023 10:46:53 03/07/2023 12:21:50 Closed fracture of right patella 2419318411 [id number] S82.001A [id number] MONA Red [facility] [place] [address] [place] [address] 03/28/2023 14:03:48 03/28/2023 16:37:40 Pain of right knee joint 3322552855 12887 M25.561 Health Concerns Section Related Observation LastModified by Organization Detai ls LastModified Time None Recorded Concern Status LastModified by Organization Details LastModified Time None Recorded Advance Directives Directive None Recorded Payers Encounter Date Sequence Insurance Name Policy Number Policy Guerrero Covered Member ID Guerrero Member ID Guarantor Name 01/31/2023 1 [place] Elayne Salmeron [id number] Elayne Salmeron 01/31/2023 2 [employer] (MEDICARE SUPPLEMENT) Elayne Salmeron [id number] Elayne Salmeron 03/07/2023 1 [place] Elayne Salmeron [id number] Elayne Salmeron 03/07/2023 2 [employer] (MEDICARE SUPPLEMENT) Elayne Tamayoy [id number] Elayne Salmeron 03/28/2023 1 [place] Elayne Tamayoy [id number] Elayne Salmeron 03/28/2023 2 [employer] (MEDICARE SUPPLEMENT) Elayne Salmeron [id number] Elayne Salmeron Notes Date Note Type Note [...] with her son today. Christian Olsen MD [address] [place] [address], [facility] [address], [place], [address], [place] [facility] 02/01/2023 14:32:04 OBGyn Episode No OBEpisode recorded.
--- OUTSIDE RECORDS SUMMARY | 2024-05-25 15:57 | XMS_ITS | Clinical Summary ---
Author Organization [facility] Address [address] [place] [address] Care Team Providers Care Copy Coordinator Name Role Phone Non-Staff, Provider Primary Care [...] Encounters Date Type Department Care Team Description 05/20/2024 8:38 AM CDT - 05/20/2024 10:50 AM CDT Hospital Encounter [place] [facility] [address] [place] [address] Judi Arreaga MD Discharge Disposition: Home or Self Care (Routine Discharge) 05/20/2024 Travel 05/20/2024 Hospital Orders Only [facility] [address] [place] [address] Judi Arreaga MD 03/27/2024 Misc Documentation [facility] [address] [place] [address] Judi Arreaga MD 03/26/2024 8:03 AM ENGINE BUILDUP MECHANIC - 03/26/2024 11:59 PM ENGINE BUILDUP MECHANIC Hospital Encounter [facility] [address] [place] [address] Judi Arreaga MD Discharge Disposition: Home or Self Care (Routine Discharge) 03/26/2024 8:02 AM ENGINE BUILDUP MECHANIC Hospital Encounter [facility] [address] [place] [address] Dawson Linton MD Discharge Disposition: Home or Self Care (Routine Discharge) 03/26/2024 Travel 03/19/2024 Pre-Procedure Call [facility] Interventional Radiology [address] [place] [address] Randee Alas RN Preprocedure Call (Spoke with Dr. Nguyen's office and they will fax over signed office notes from 03/16/24 appt) 03/19/2024 Telephone [facility] Interventional Radiology [address] [place] [address] Katlyn Thurman RN Preprocedure Call (Son called to see if patient can have bone marrow biopsy appt earlier in the morning. Appt moved to 0830 lab, 0900 hold time and 1000 procedure. Son aware of changed time, npo at midnight and will need charter coach driver for the way home. Son stated patient has been seen by Dr. Nguyen in [place] on 03/16. ) from Last 3 Months Social History Tobacco Use Types Packs/Day Years Used Date Smoking Tobacco: Never Smokeless Tobacco: Never Tobacco Cessation:Counseling Given: Not Answered Alcohol Use Standard Drinks/Week Comments Not Currently 0 (1 standard drink = 0.6 oz pur e alcohol) Comments Unknown Sex and Gender Information Value Date Recorded Sex Assigned at Female 03/26/2024 8:00 AM ENGINE BUILDUP MECHANIC Legal Sex Female 11:03 PM ENGINE BUILDUP MECHANIC Gender Identity Not on file Sexual Orientation Not on file Last Filed Vital Signs Vital Sign Reading Time Taken Comments Blood Pressure 137/48 03/26/2024 1:05 PM ENGINE BUILDUP MECHANIC Pulse 65 03/26/2024 1:05 PM ENGINE BUILDUP MECHANIC Temperature 35.7 C (96.3 F) 12/26/2023 9:21 AM CDT Respiratory Rate 24 03/26/2024 1:05 PM ENGINE BUILDUP MECHANIC Oxygen Saturation 94% 03/26/2024 1:18 PM ENGINE BUILDUP MECHANIC Inhaled Oxygen Concentration - - Weight 68 kg (150 lb) 03/26/2024 9:21 AM ENGINE BUILDUP MECHANIC Height 149.9 cm (4' 11 ) 03/26/2024 9:21 AM ENGINE BUILDUP MECHANIC Body Mass Index 30.3 03/26/2024 9:21 AM ENGINE BUILDUP MECHANIC Plan of Treatment Health Maintenance Due Date [...] CHEST+ABD+PEL W CON Routine 03/26/2024 12:20 PM ENGINE BUILDUP MECHANIC Lymphoma, small lymphocytic ([facility]) CT GD ASPIR+BX BONE MARROW Routine 03/26/2024 12:15 PM ENGINE BUILDUP MECHANIC Lymphoma, small lymphocytic (CMS/HCC HHS/HCC) CREATININE WHOLE BLOOD Routine 03/26/2024 12:15 PM ENGINE BUILDUP MECHANIC FLOW CYTOMETRY Routine 03/26/2024 11:55 AM ENGINE BUILDUP MECHANIC CHROMOSOME ANALYSIS HEMATOLOGIC MALIGNANCY Routine 03/26/2024 11:55 AM ENGINE BUILDUP MECHANIC XR CHEST PA OR AP 1V STAT 03/26/2024 10:47 AM ENGINE BUILDUP MECHANIC Lymphoma, small lymphocytic (CMS/HCC HHS/HCC) TYPE & SCREEN STAT 03/26/2024 9:58 AM ENGINE BUILDUP MECHANIC Lymphoma, small lymphocytic (CMS/HCC HHS/HCC) CBC W/DIFF AUTOMATED Routine 03/26/2024 8:28 AM ENGINE BUILDUP MECHANIC Lymphoma, small lymphocytic (CMS/HCC HHS/HCC) PROTHROMBIN TIME, VENOUS Routine 03/26/2024 8:28 AM ENGINE BUILDUP MECHANIC Lymphoma, small lymphocytic (CMS/HCC HHS/HCC) PATHOLOGY Routine 03/26/2024 12:00 AM ENGINE BUILDUP MECHANIC from Last 3 Months Results * CT CHEST+ABD+PEL W CON (03/26/2024 12:20 PM ENGINE BUILDUP MECHANIC) Anatomical Region Laterality Modality Chest, Abdomen, Pelvis Computed Tomography 04/04/2024 9:43 AM ENGINE BUILDUP MECHANIC Impressions 04/04/2024 10:02 AM ENGINE BUILDUP MECHANIC Impression: 1. Mediastinal and hilar lymphadenopathy as [...] lobe, new from the prior CT from 2017. This is nonspecific but cannot exclude [...] 04/04/2024 9:43 AM Narrative 04/04/2024 10:02 AM ENGINE BUILDUP MECHANIC [place] [address] Examination: CT chest, abdomen and pelvis with [...] image 41), new from prior CT from 2016 and nonspecific. Subpleural reticular and consolidative opacities [...] Procedure Note Rei Gaines MD - 04/04/[address] [address] Examination: CT chest, abdomen and pelvis with [...] left and trace right pleural effusions. Irregular kdzvtqaxeakmxv-im-mzv opacities are present within both lungs, most [...] upper lobe, new from the prior CTfrom 2016. This is nonspecific but cannot exclude [...] GD ASPIR+BX BONE MARROW (03/26/2024 12:15 PM ENGINE BUILDUP MECHANIC) Anatomical Region Laterality Modality Bone Computed Tomogra phy, Radiographic Imaging 03/26/2024 4:31 PM ENGINE BUILDUP MECHANIC Impressions 03/26/2024 5:05 PM ENGINE BUILDUP MECHANIC IMPRESSION: CT-guided percutaneous bone marrow biopsy, as described. The attending radiologist, Dr. Webber, was in the department for all critical portions of the procedure, has reviewed the images, and agrees with the content of this report. Dictated By: MONA Erci on 03/26/2024 4:31 PM Ordered By: JUDI ARREAGA Interpreted By: MONA Eric, 03/26/2024 4:31 PM Narrative 03/26/2024 5:05 PM ENGINE BUILDUP MECHANIC [address] [address] PROCEDURE: CT-guided bone marrow aspiration and biopsy DATE OF PROCEDURE: 03/26/2024 11:45 AM INDICATION: History of CLL. Primary provider: Mik Kim PA-C Supervising provider: Jamshid Webber M.D. Conscious sedation: Administered and monitored by a qualified interventional radiology nurse under supervision of the interventional physician podiatry assistant. There was continuous monitoring of vital signs including pulse oximetry, end-tidal CO2, and EKG. Total intraservice or wecx-kv-jcuo sedation time: 5 minutes. TECHNIQUE AND FINDINGS: Informed written consent was obtained. The patient was then brought to the CT scanner suite, placed in the prone position, and [place] protocol was observed to verify correct patient, [...] The needle was then connected to an [employer] motorized device to penetrate the cortex. At [...] Procedure Note Jamshid Webber MD - 03/26/[address] [address] PROCEDURE: CT-guided bone marrow aspiration and biopsy DATE OF PROCEDURE: 03/26/2024 11:45 AM INDICATION: History of CLL. Primary provider: Mik Kim PA-C Supervising provider: Jamshid Webber M.D. Conscious sedation: Administered and monitored by a qualifiedinterventional radiology nurse under supervision of the interventionalphysician podiatry assistant. There was continuous monitoring of vital signsincluding pulse oximetry, end-tidal CO2, and EKG. Total intraservice vkimlk-tt-vdjc sedation time: 5 minutes. TECHNIQUE AND FINDINGS: Informed written consent was obtained. The patient was then brought to theCT scanner suite, placed in the prone position, and [place] protocol wasobserved to verify correct patient, site, [...] visualization. The needle was then connected to [employer] motorized device to penetrate the cortex. At [...] (ABNORMAL) CREATININE WHOLE BLOOD (03/26/2024 12:15 PM ENGINE BUILDUP MECHANIC) CREATININE WHOLE BLOOD 0.9 0.6 - 1.3 mg/dL 03/26/2024 12:24 PM ENGINE BUILDUP MECHANIC [facility] GFR ESTIMATE 65(L) >90 ML/MIN/1. 73 M2 03/26/2024 12:24 PM ENGINE BUILDUP MECHANIC [facility] GFR NOTES GFR REFERENCE S: 03/26/2024 12:24 PM ENGINE BUILDUP MECHANIC [facility] Comment: THE ESTIMATED GFR IS [...] TEST WAS PERFORMED: 1215 03/26/2024 12:24 PM ENGINE BUILDUP MECHANIC [facility] 03/26/2024 12:1 5 PM ENGINE BUILDUP MECHANIC Dawsno Linton MD LABORATORY Final Result [facility] [address] [place] [address], [phone] * Flow Cytometry (03/26/2024 11:55 AM ENGINE BUILDUP MECHANIC) FLOW CYTOMETRY RESULTS [facility] Department of Laboratory Medicine [address] [place] [address] , extension [phone] Pathology Report Flow Cytometry Report Name: CICI HUTCHINSON Specimen #: [id number] Age: 2 1945 (Age: 78) Location: [facility] Sex: F Procedure Date: 03/26/2024 Hospital #: [id number] Date Received: 03/26/2024 Date Reported: 04/08/2024 Provider: [...] cells. Result: Tested: CD45, CD19, CD20, Surface Winfall, Surface Lambda, CD5, CD10, CD38, CD34, CD14, [...] developed and its performance characteristics determined by [facility]. It has not been cleared or approved by the U.S. Food and Drug Administration. However, the use of Analyte Specific Reagents does not require FDA approval. [facility] 03/26/2024 11:5 5 AM ENGINE BUILDUP MECHANIC 03/26/2024 12:15 PM ENGINE BUILDUP MECHANIC Comment:Bone marrow aspirati on (See report [id number]) us Judi Arreaga MD PATHOLOGY/CYTOLOGY OR DERABLES Final Result [facility] [address] [place] [address], [place] [phone] * CHROMOSOME ANALYSIS HEMATOLOGIC MALIGNANCY (03/26/2024 11:55 AM ENGINE BUILDUP MECHANIC) SPECIMEN SOURCE BONE MARROW NA AHEP 03/26/2024 3:11 PM ENGINE BUILDUP MECHANIC [facility] CLINICAL INDICATION LYMPHOMA 03/26/2024 3:11 PM ENGINE BUILDUP MECHANIC [facility] PRIOR THERAPY/TRANSPLANT UNK 03/26/2024 3:11 PM ENGINE BUILDUP MECHANIC [facility] PHYSICIAN PHONE [phone] 3:11 PM ENGINE BUILDUP MECHANIC [facility] Comment: [phone] CLIENT PHONE [phone] 03/26/2024 3:11 PM ENGINE BUILDUP MECHANIC [facility] Comment: [phone] CHROMOSOME BLOOD REPORT 04/01/19 2:52 PM ENGINE BUILDUP MECHANIC [employer] FREDDIEGUSTAVO VELAZQUEZ Comment: Order ID: [id number] Specimen Type: Bone Marrow Clinical Indication: Lymphoma [...] 47,XX,+12[14]/46,XX[6] ASSAY INFORMATION: Method: G-Band (Digital Analysis: [employer]) Cells Counted: 20 Band Level: 400 Cells Analyzed: 20 Cells Karyotyped: 4 Small clonal populations and subtle chromosome abnormalities may not be identified. Irish Brannon, Ph.D., [facility], [employer], Cytogenetics and Genomics, Electronic Signature: 04/01/2024 3:08 PM For more information on this test, go to [email or web address]/Ca-chromosome Test Performed by [employer], [employer] [facility], [address] [place] [address] Mike Santana M.D., Ph.D., Director of Laboratories , [place] [id number] 03/26/2024 11:5 5 AM ENGINE BUILDUP MECHANIC Judi Arreaga MD LABORATORY Final Result [employer] [facility] [address] [place], [place] , [place] [phone] [facility] [address] [place] [address], [place] [phone] * XR CHEST PA OR AP 1V (03/26/2024 10:47 AM ENGINE BUILDUP MECHANIC) Anatomical Region Laterality Modality Chest Radiographic Fidelia ging 03/26/2024 11:0 4 AM ENGINE BUILDUP MECHANIC Impressions 03/26/2024 11:14 AM ENGINE BUILDUP MECHANIC IMPRESSION: Cardiomegaly with probable pulmonary congestion/mild interstitial CHF.Patchy opacity in the left midlung laterally which could represent pneumonia. Recommend correlation with any recent outside films if possible. Ordered By: JAMSHID WEBBER Interpreted By: Jamshid Webber MD, 03/26/2024 11:04 AM Narrative 03/26/2024 11:14 AM ENGINE BUILDUP MECHANIC [place] [address] EXAM DESCRIPTION: Chest 1 view EXAM TIME : 03/26/2024 10:44 AM INDICATION: Shortness of breath. History of CLL. Patient apparently has history of ELIER. COMPARISON FILM : CTA chest 08/23/2016. TECHNIQUE: Chest- 1 - view, 1 - images FINDINGS: Upright AP film obtained. Interval removal of previously present Kjkzyq-j-Dnnc. Mild cardiomegaly. Calcified aortic knob. Central pulmonary congestion with interstitial changes suggestive of CHF. In addition there is patchy groundglass opacity in the left midlung laterally which could represent pneumonia. Lungs questionable very minimal blunting left costophrenic angle, no significant size effusions. No pneumothorax. No acute bony abnormality. Procedure Note Jamshid Webber MD - 03/26/2024 [facility] [address] [place], [place] [address] EXAM DESCRIPTION: Chest 1 view EXAM TIME : 03/26/2024 10:44 AM INDICATION: Shortness of breath. History of CLL. Patient apparently hashistory of ELIER. COMPARISON FILM : CTA chest 08/23/2016. TECHNIQUE: Chest- 1 - view, 1 - images FINDINGS: Upright AP film obtained. Interval removal of previously ylgvbbbLksbbb-t-Jpjb. Mild cardiomegaly. Calcified aortic knob. Centralpulmonary congestion [...] * TYPE & SCREEN (03/26/2024 9:58 AM ENGINE BUILDUP MECHANIC) UNITS ORDERED 1 03/26/2024 10:20 AM ENGINE BUILDUP MECHANIC [facility] ABO/RH A POSITIVE 03/26/2024 10:54 AM ENGINE BUILDUP MECHANIC [facility] ANTIBODY SCREEN NEGATIVE 03/26/2024 10:54 AM ENGINE BUILDUP MECHANIC [facility] SAMPLE EXPIRATION 03/29/2024,2 359 03/26/2024 10:09 AM ENGINE BUILDUP MECHANIC [facility] 03/26/2024 9:58 AM ENGINE BUILDUP MECHANIC Mik Kim PA-C BLOOD BANK TEST ORDERABLES Final Result Performing Organization Address [facility] de Phone Number [facility] [address] [place] [address], [phone] * (ABNORMAL) PROTIME/INR, VENOUS (PROTHROMBIN TIME) (03/26/2024 8:28 AM ENGINE BUILDUP MECHANIC) PROTIME 14.3(H) 9.4 - 12.5 SEC 03/26/2024 9:06 AM ENGINE BUILDUP MECHANIC [facility] INR 1.2(H) 0.8 - 1.1 03/26/2024 9:06 AM ENGINE BUILDUP MECHANIC [facility] 03/26/2024 8:28 AM ENGINE BUILDUP MECHANIC Dawson Linton MD LABORATORY Final Result Performing Organization Address [facility] de Phone Number [facility] [address] [place] [address], [phone] * (ABNORMAL) CBC W/DIFF AUTOMATED (03/26/2024 8:28 AM ENGINE BUILDUP MECHANIC) WBC 6.16 4.00 - 10.80 x10'3/uL 03/26/2024 9:26 AM ENGINE BUILDUP MECHANIC [facility] RBC 2.39(L) 4.10 - 5.40 x10'6/uL 03/26/2024 9:26 AM ENGINE BUILDUP MECHANIC [facility] HGB 6.7(LL) 12.0 - 16.0 G/DL 03/26/2024 9:26 AM ENGINE BUILDUP MECHANIC [facility] Comment: This result has been called to [id number] IN RADIOLOGY by [id number] on 03/26/2024 09:24:23, and has been read back. HCT 21.8(L) 36.0 - 47.0 % 03/26/2024 9:[address] [facility] MCV 91.2 78.0 - 100.0 FL 03/26/2024 9:[address] [facility] MCH 28.0 27.0 - 31.0 PG 03/26/2024 9:[address] [facility] MCHC 30.7(L) 33.0 - 36.0 G/DL 03/26/2024 9:[address] [facility] RDW 17.1(H) 11.5 - 14.5 % 03/26/2024 9:[address] [facility] PLT 48(L) 150 - 350 x10'3/uL 03/26/2024 9:[address] [facility] MPV 10.8(H) 7.4 - 10.4 FL 03/26/2024 9:[address] [facility] DIFFERENTIAL TYPE MANUAL DIFFERENTIAL 03/26/2024 9:[address] [facility] NRBC % 0.0 % 03/26/2024 9:[address] [facility] SEG NEUTROPHILS 70 % 9:[address] [facility] LYMPHOCYTES 22 % 03/26/2024 9:[address] [facility] MONOCYTES 4 % 03/26/2024 9:[address] [facility] EOSINOPHILS 3 % 03/26/2024 9:[address] [facility] BASOPHILS 1 % 03/26/2024 9:[address] [facility] ABS. NEUTROPHILS 4.31 1.60 - 8.30 x10'3/uL 03/26/2024 9:[address] [facility] ABS. LYMPHOCYTES 1.36 0.80 - 4.70 x10'3/uL 03/26/2024 9:[address] [facility] ABS. MONOCYTES 0.25 0.00 - 1.50 x10'3/uL 03/26/2024 9:29 AM ENGINE BUILDUP MECHANIC [facility] ABS. EOSINOPHILS 0.18 0.00 - 0.40 x10'3/uL 03/26/2024 9:29 AM ENGINE BUILDUP MECHANIC [facility] ABS. BASOPHILS 0.06 0.00 - 0.20 x10'3/uL 03/26/2024 9:[address] [facility] ABS. NUCLEATED RBC'S 0.00 0.00 - 0.01 x10'3/uL 03/26/2024 9:29 AM ENGINE BUILDUP MECHANIC [facility] RBC MORPHOLOGY SLIDE REVIEWED 2024 9:29 AM ENGINE BUILDUP MECHANIC [facility] ANISO SLIGHT 03/26/2024 9:29 AM ENGINE BUILDUP MECHANIC [facility] POIKLO SLIGHT 03/26/2024 9:[address] [facility] HYPOCHROMASIA SLIGHT 03/26/2024 9:[address] [facility] OVALOCYTES PRESENT 03/26/2024 9:[address] [facility] TEAR DROP PRESENT 03/26/2024 9:29 AM ENGINE BUILDUP MECHANIC [facility] PLT EST. DECREASED 03/26/2024 9:[address] [facility] 03/26/2024 8:28 AM ENGINE BUILDUP MECHANIC Dawson Linton MD LABORATORY Final Result Performing Organization Address City/State/[facility] Co de Phone Number [facility] [address] [place] [phone], [phone] * Pathology (03/26/2024 12:00 AM ENGINE BUILDUP MECHANIC) PATHOLOGY [facility] Department of Laboratory Medicine [address] [place] [address] , extension [phone] Pathology Report Addendum Bone Marrow Report Name: CICI HUTCHINSON Specimen #: [id number] Age: 2 1945 (Age: 78) Location: [facility] Sex: F Procedure Date: 03/26/2024 [facility] #: [id number] Date Received: 03/26/2024 Date Reported: / Provider: JUDI ARREAGA MD Source: A: Bone [...] similar finding in the marrow at the [facility], see their report [id number]. There is no evidence of transformation in [...] with the guidelines of the [employer] for the report of cancer specimens. [...] Gross examination (when applicable) was performed at [facility], [address] [facility], [place] [address]. This case was interpreted and signed out at [facility], [address] [place] [address]. All immunohistochemical and histochemical tests were developed by and performed at [facility], [address] [place] [address]. All tests reported here have not been [...] MD Addenda/Procedures Addendum Date Ordered: 03/26/2024 Status: Signed Out Date Complete: 03/26/2024 By: ZACK BEE Date Reported: 05/19/2024 Addendum Diagnosis {Not Entered} Addendum Comment Routine cytogenetics is performed at [facility]. 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 Trisomy 12 is a recurrent abnormality in chronic/small lymphocytic lymphoma. In CLL/SLL trisomy 12 is often associated with atypical immunophenotype and lymphocyte morphology. These findings correspond with the bone marrow biopsy results of CLL/SLL. [facility] 03/26/2024 03/26/2024 1:3 0 PM ENGINE BUILDUP MECHANIC Comment:Bone marrow aspirati on right iliac&Bone marrow biopsy right iliac Judi Arreaga MD PATHOLOGY/CYTOLOGY OR DERABLES Final Result [facility] [address] [place] [address], [phone] from Last 3 Months Insurance [employer] MED[employer] Care Teams Copy Coordinator Relationship Specialty Start Date End Date Non-Staff, Provider PCP - General UNKNOWN PHYSICIAN SPECIALTY 12/25/23
== END 2024-05-25 13:42 | disposition home or self-care (01) ==
LOC: CHSIMG 13:43
PROVIDERS: PCP Internal Medicine; Visit Provider Internal Medicine Hematology
DX: Z51.81 Encounter for therapeutic drug level monitoring (principal); I34.0 Nonrheumatic mitral (valve) insufficiency; I35.0 Nonrheumatic aortic (valve) stenosis
CPT/HCPCS: 93306

== ENCOUNTER 2024-05-27 07:43 | Outpatient (CLI) | payer MEDICARE, SELFPAY ==
--- OUTSIDE RECORDS SUMMARY | 2024-05-27 07:52 | XMS_ITS ---
Author Organization [facility] Address [address] [place], [place] [address] Care Team Providers Care Gluing Crew Leader Name Role Phone CHI GIBSON Unavailable [phone] Jonathon Nguyen Unavailable Unavailable BILL PEREZ Unavailable [phone] REASON FOR VISIT *General care Medications Medication SIG (Take, Route, Frequency, Duration) Notes Start Date End Date Status aspirin 81 MG Delayed Release Oral Tablet [[employer] Aspirin] ORAL aspirin 81 MG Delayed Release Oral Tablet [[employer] Aspirin]Original Medicationaspirin 81 MG Delayed Release Oral Tablet [[employer] Aspirin] *Reorder from [employer] for eRx and Interaction Alerts* 07/20/2012 Active chondroitin sulfates 250 MG Oral Capsule ORAL chondroitin sulfates 250 MG Oral CapsuleOriginal Medicationchondroitin sulfates 250 MG Oral Capsule *Reorder from [employer] for eRx and Interaction Alerts* 07/20/2012 Active Glucosamine Sulfate 500 MG Oral Tablet ORAL glucosamine sulfate 500 MG Oral TabletOriginal Medicationglucosamine sulfate 500 MG Oral Tablet *Reorder from [employer] for eRx and Interaction Alerts* 07/20/2012 Active Magnesium Gluconate 550 MG Oral Tablet ORAL magnesium gluconate 550 MG Oral TabletOriginal Medicationmagnesium gluconate 550 MG Oral Tablet *Reorder from [employer] for eRx and Interaction Alerts* 07/20/2012 Active Encounters Encounter Location Date Provider Diagnosis [address] [id number] 11/13/2023 BILL PEREZ Tinea unguium B35.1 ; Pain in right toe(s) M79.674 ; Pain in left toe(s) M79.675 ; Other hammer toe(s) (acquired), right foot M20.41 ; Other hammer toe(s) (acquired), left foot M20.42 ; Unspecified atherosclerosis of [place] arteries of extremities, bilateral legs I70.203 and [...] (ICD-10 - M20.42) 11/13/2023 Unspecified atherosclerosis of [place] arteries of extremities, bilateral legs (ICD-10 - [...] conservative options were emphasized. Unspecified atherosclerosis of [place] arteries of extremities, bilateral legs Patient educated [...] CICI HUTCHINSON KDOB:[birth year] (78 yo F)Acc No.[id number]:11/13/2023 Patient: CICI DEAN Provider: Livan PEREZ :1945 A ge:78 Y S ex:Female Date:11/13/2023 Address:[address] [place] [address], [place] [address] Subjective: * Chief Complaints: * 1 . *General care. * HPI: H PI: General care P atient presents to the office for diabetic foot care. Patient states that their nails are thickened, elongated and painful. Patient states that it is aggravated by shoe gear. Onset is gradual., Patient denies taking blood thinners., Date last seen by Dr. Nguyen was 10/2023., Initials [facility]. * ROS: G eneral / Constitutional: Patient denies w eakness. R espiratory: Patient denies c hronic cough, shortness of breath, sputum production. C ardiovascular: Patient denies c hest pain, history of [place], irregular heartbeat. M usculoskeletal: Patient complains of [...] gluconate 550 MG Oral Tablet *Reorder from [employer] for eRx and Interaction Alerts*, Taking Glucosamine Sulfate 500 MG Oral Tablet ORAL , Notes to Pharmacist: glucosamine sulfate 500 MG Oral TabletOriginal Medicationglucosamine sulfate 500 MG Oral Tablet *Reorder from [facility] for eRx and Interaction Alerts*, Taking aspirin 81 MG Delayed Release Oral Tablet [[employer] Aspirin] ORAL , Notes to Pharmacist: aspirin 81 MG Delayed Release Oral Tablet [[employer] Aspirin]Original Medicationaspirin 81 MG Delayed Release Oral Tablet [[employer] Aspirin] *Reorder from [facility] for eRx and Interaction Alerts*, Taking chondroitin sulfates 250 MG Oral Capsule ORAL , Notes to Pharmacist: chondroitin sulfates 250 MG Oral CapsuleOriginal Medicationchondroitin sulfates 250 MG Oral Capsule *Reorder from [facility] for eRx and Interaction Alerts* Objective: [...] M20.42 6 . U nspecified atherosclerosis of [place] arteries of extremities, bilateral legs - I70.203 [...] were emphasized. 3. U nspecified atherosclerosis of [place] arteries of extremities, bilateral legs Notes: Patient [...] Information: * Visit Code: * Procedure Codes: 05089 DEBRIDE NAIL, 6 OR MORE. Modifiers: Q8 * Sign off status: Completed true * Provider: Livan PEREZ Date: 0 11/13/2023 Generated for Rigoberto smith/Adali/Sharon on: 0 05/27/2024 07:52 AM CDT History and Physical Notes * HPI [...]
--- OUTSIDE RECORDS SUMMARY | 2024-05-27 07:52 | XMS_ITS | Encounter Summary ---
Author Organization [facility] Address [address] [place] [address] Care Team Providers Care Supervisor Microfilm Duplicating Unit Name Role Phone Non-Staff, Provider Primary Care Provider Luis troncoso Encounter Details Date Type Department Care Team (Late st Contact Info) Description 05/20/2024 Hospital Orders Only [facility] [address] [place] [address] Pema Kinsey MD [address] [place] [address] Social History Tobacco Use Types Packs/Day Years Used Date Smoking Tobacco: Never Smokeless Tobacco: Never Alcohol Use Standard Drinks/Week Comments Not Currently 0 (1 standard drink = 0.6 oz pur e alcohol) Comments Unknown Sex and Gender Information Value Date Recorded Sex Assigned at Female 03/26/2024 8:00 AM BARIATRIC PROGRAM COORDINATOR Legal Sex Female 11:03 PM BARIATRIC PROGRAM COORDINATOR Gender Identity Not on file Sexual [...] on filedocumented in this encounter Care Teams Supervisor Microfilm Duplicating Unit Relationship Specialty Start Date End Date Non-Staff, Provider PCP - General UNKNOWN PHYSICIAN SPECIALTY 12/25/23 documented as of this encounter
--- OUTSIDE RECORDS SUMMARY | 2024-05-27 07:52 | XMS_ITS ---
Author Organization [facility] Address [address] [place], [place] [id number] Care Team Providers Care Sheet Rock Installation Helper Name Role Phone CHI GIBSON Unavailable [phone] Jonathon Nguyen Unavailable Unavailable BILL PEREZ Unavailable [phone] REASON FOR VISIT *General care Medications Medication SIG (Take, Route, Frequency, Duration) Notes Start Date End Date Status chondroitin sulfates 250 MG Oral Capsule ORAL chondroitin sulfates 250 MG Oral CapsuleOriginal Medicationchondroitin sulfates 250 MG Oral Capsule *Reorder from [employer] for eRx and Interaction Alerts* 07/20/2012 Active aspirin 81 MG Delayed Release Oral Tablet [[employer] Aspirin] ORAL aspirin 81 MG Delayed Release Oral Tablet [[employer] Aspirin]Original Medicationaspirin 81 MG Delayed Release Oral Tablet [[employer] Aspirin] *Reorder from [employer] for eRx and Interaction Alerts* 07/20/2012 Active Glucosamine Sulfate 500 MG Oral Tablet ORAL glucosamine sulfate 500 MG Oral TabletOriginal Medicationglucosamine sulfate 500 MG Oral Tablet *Reorder from [employer] for eRx and Interaction Alerts* 07/20/2012 Active Magnesium Gluconate 550 MG Oral Tablet ORAL magnesium gluconate 550 MG Oral TabletOriginal Medicationmagnesium gluconate 550 MG Oral Tablet *Reorder from [employer] for eRx and Interaction Alerts* 07/20/2012 Active Encounters Encounter Location Date Provider Diagnosis [place] [address] [place], [place] [id number] 01/22/2024 BILL PEREZ Tinea unguium B35.1 ; Pain in right toe(s) M79.674 ; Pain in left toe(s) M79.675 ; Other hammer toe(s) (acquired), right foot M20.41 ; Other hammer toe(s) (acquired), left foot M20.42 ; Unspecified atherosclerosis of [place] arteries of extremities, bilateral legs I70.203 and [...] (ICD-10 - M20.42) 01/22/2024 Unspecified atherosclerosis of [place] arteries of extremities, bilateral legs (ICD-10 - [...] conservative options were emphasized. Unspecified atherosclerosis of [place] arteries of extremities, bilateral legs Patient educated [...] CICI HUTCHINSON KDOB:[birth year] (78 yo F)Acc No.[id number]:01/22/2024 Patient: CICI DEAN Provider: Livan PEREZ :1945 A ge:78 Y S ex:Female Date:01/22/2024 Address:[address] [place] [address], [place] [address] Subjective: * Chief Complaints: * 1 . *General care. * HPI: H PI: General care P atient presents to the office for diabetic foot care. Patient states that their nails are thickened, elongated and painful. Patient states that it is aggravated by shoe gear. Onset is gradual., Patient denies taking blood thinners., Date last seen by Dr. Nguyen was 01/2024., Initials [facility]. * ROS: G eneral / Constitutional: Patient denies w eakness. R espiratory: Patient denies c hronic cough, shortness of breath, sputum production. C ardiovascular: Patient denies c hest pain, history of MA, irregular heartbeat. M usculoskeletal: Patient complains of [...] gluconate 550 MG Oral Tablet *Reorder from [employer] for eRx and Interaction Alerts*, Taking Glucosamine Sulfate 500 MG Oral Tablet ORAL , Notes to Pharmacist: glucosamine sulfate 500 MG Oral TabletOriginal Medicationglucosamine sulfate 500 MG Oral Tablet *Reorder from [facility] for eRx and Interaction Alerts*, Taking aspirin 81 MG Delayed Release Oral Tablet [[employer] Aspirin] ORAL , Notes to Pharmacist: aspirin 81 MG Delayed Release Oral Tablet [[employer] Aspirin]Original Medicationaspirin 81 MG Delayed Release Oral Tablet [[employer] Aspirin] *Reorder from [facility] for eRx and Interaction Alerts*, Taking chondroitin sulfates 250 MG Oral Capsule ORAL , Notes to Pharmacist: chondroitin sulfates 250 MG Oral CapsuleOriginal Medicationchondroitin sulfates 250 MG Oral Capsule *Reorder from [facility] for eRx and Interaction Alerts* Objective: [...] M20.42 6 . U nspecified atherosclerosis of [place] arteries of extremities, bilateral legs - I70.203 [...] were emphasized. 3. U nspecified atherosclerosis of [place] arteries of extremities, bilateral legs Notes: Patient [...] Information: * Visit Code: * Procedure Codes: 41313 DEBRIDE NAIL, 6 OR MORE. 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
--- OUTSIDE RECORDS SUMMARY | 2024-05-27 07:52 | XMS_ITS | Patient Health Record ---
Author Organization [facility] Address [address] [place], [place] [address] Care Team Providers Care English Division Chair Name Role Phone CHI GIBSON Unavailable [phone] Jonathon Nguyen Unavailable Unavailable BILL PEREZ Unavailable [phone] Allergies No Known Allergies Reason For Referral No Information Medications Medication SIG (Take, Route, Frequency, Duration) Notes Start Date End Date Status chondroitin sulfates 250 MG Oral Capsule ORAL chondroitin sulfates 250 MG Oral CapsuleOriginal Medicationchondroitin sulfates 250 MG Oral Capsule *Reorder from [employer] for eRx and Interaction Alerts* 07/20/2012 Active aspirin 81 MG Delayed Release Oral Tablet [[employer] Aspirin] ORAL aspirin 81 MG Delayed Release Oral Tablet [[employer] Aspirin]Original Medicationaspirin 81 MG Delayed Release Oral Tablet [[employer] Aspirin] *Reorder from [employer] for eRx and Interaction Alerts* 07/20/2012 Active Glucosamine Sulfate 500 MG Oral Tablet ORAL glucosamine sulfate 500 MG Oral TabletOriginal Medicationglucosamine sulfate 500 MG Oral Tablet *Reorder from [employer] for eRx and Interaction Alerts* 07/20/2012 Active Magnesium Gluconate 550 MG Oral Tablet ORAL magnesium gluconate 550 MG Oral TabletOriginal Medicationmagnesium gluconate 550 MG Oral Tablet *Reorder from [employer] for eRx and Interaction Alerts* 07/20/2012 Active Immunizations Vaccine Route Administration Date Status Comme nts Influenza, high dose seasonal Unknown 12/19/2022 Admini stered Vital Signs Height-cm 149.86 cm 07/10/2023 Weight-kg 69.85 kg 07/10/2023 Height 59.00 in 07/10/2023 Weight 154 lbs 07/10/2023 BMI 31.1 kg/m2 07/10/2023 Encounters Encounter Location Date Provider Diagnosis [address] [id number] 07/10/2023 BILL PEREZ Tinea unguium B35.1 ; Pain in right toe(s) M79.674 ; Pain in left toe(s) M79.675 ; Other hammer toe(s) (acquired), right foot M20.41 ; Other hammer toe(s) (acquired), left foot M20.42 ; Unspecified atherosclerosis of [place] arteries of extremities, bilateral legs I70.203 and Type 2 diabetes mellitus with other circulatory complications E11.[address] [id number] 09/11/2023 BILL PEREZ Tinea unguium B35.1 ; Pain in right toe(s) M79.674 ; Pain in left toe(s) M79.675 ; Other hammer toe(s) (acquired), right foot M20.41 ; Other hammer toe(s) (acquired), left foot M20.42 ; Unspecified atherosclerosis of [place] arteries of extremities, bilateral legs I70.203 and Type 2 diabetes mellitus with other circulatory complications E11.[address] [id number] 11/13/2023 BILL PEREZ Tinea unguium B35.1 ; Pain in right toe(s) M79.674 ; Pain in left toe(s) M79.675 ; Other hammer toe(s) (acquired), right foot M20.41 ; Other hammer toe(s) (acquired), left foot M20.42 ; Unspecified atherosclerosis of [place] arteries of extremities, bilateral legs I70.203 and Type 2 diabetes mellitus with other circulatory complications E11.59 [place] [address] [place], [place] [id number] 01/22/2024 BILL PEREZ Tinea unguium B35.1 ; Pain in right toe(s) M79.674 ; Pain in left toe(s) M79.675 ; Other hammer toe(s) (acquired), right foot M20.41 ; Other hammer toe(s) (acquired), left foot M20.42 ; Unspecified atherosclerosis of [place] arteries of extremities, bilateral legs [...] (ICD-10 - M20.42) 07/10/2023 Unspecified atherosclerosis of [place] arteries of extremities, 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) Patient educated on risks and aggravating factors of PVD, including conservative treatment options such as a diet and exercise regimen to aid in slowing progression of vascular disease 09/11/2023 Unspecified atherosclerosis of [place] arteries of extremities, 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) Patient educated on risks and aggravating factors of PVD, including conservative treatment options such as a diet and exercise regimen to aid in slowing progression of vascular disease 11/13/2023 Unspecified atherosclerosis of [place] arteries of extremities, 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) Patient educated on risks and aggravating factors of PVD, including conservative treatment options such as a diet and exercise regimen to aid in slowing progression of vascular disease 01/22/2024 Unspecified atherosclerosis of [place] arteries of extremities, bilateral legs [...] Date Coverage End Date Medicare Part B [place] [address] [place] [address] [id number] CICI HUTCHINSON Self - patient is the insured [employer] [address] [address] [place] [address] [phone] [id number] CICI HUTCHINSON Self - patient is the insured
--- OUTSIDE RECORDS SUMMARY | 2024-05-27 07:52 | XMS_ITS ---
Author Organization [facility] Address [address] [place], [place] [phone] Care Team Providers Care Dehydration Plant Operator Name Role Phone CHI GIBSON Unavailable [phone] Jonathon Nguyen Unavailable Unavailable REASON FOR VISIT *General care Encounters Encounter Location Date Provider Diagnosis [address] [id number] 04/22/2024 CHI GIBSON Plan Of Treatment No Information Progress Notes * CICI HUTCHINSON KDOB:[birth year] (79 yo F)Acc No.[id number]:04/22/2024 Patient: MARIA ELENA DEANLIAndres Mar Provider: Andres Gibson DPM :1945 A ge:78 Y S ex:Female Date:04/22/2024 Address:[address] [place] [address], [address] Subjective: * Chief Complaints: * 1 . *General care. * Medical History: Objective: * Vitals: Assessment: Plan: * Treatment: * Billing Information: * Visit Code: * Procedure Codes: * Electronic signature of CHI GIBSON DPM on 05/27/2024 at 07:52 AM CDT Sign off status: Pending * Provider: Andres Gibson DPM Date: 04/22/2024 Generated for Printi ng/Faxing/eTransmitting on: 0 05/27/2024 07:52 AM CDT
--- OUTSIDE RECORDS SUMMARY | 2024-05-27 07:52 | XMS_ITS | Encounter Summary ---
Author Organization [facility] Address [address] [place] [address] Care Team Providers Care It Operations Specialist Name Role Phone Non-Staff, Provider Primary Care Provider Luis troncoso Encounter Details Date Type Department Care Team (Late st Contact Info) Description 03/27/2024 [facility] Documentation [place] [address] [place] [address] Pema Kinsey MD [address] [place], [place] [address] Social History Tobacco Use Types Packs/Day Years Used Date Smoking Tobacco: Never Smokeless Tobacco: Never Alcohol Use Standard Drinks/Week Comments Not Currently 0 (1 standard drink = 0.6 oz pur e alcohol) Comments Unknown Sex and Gender Information Value Date Recorded Sex Assigned at Female 03/26/2024 8:00 AM ARTERIAL EMBALMER Legal Sex Female 11:03 PM ARTERIAL EMBALMER Gender Identity Not on file Sexual Orientation [...] on filedocumented in this encounter Care Teams It Operations Specialist Relationship Specialty Start Date End Date Non-Staff, Provider PCP - General UNKNOWN PHYSICIAN SPECIALTY 12/25/23 documented as of this encounter
--- OUTSIDE RECORDS SUMMARY | 2024-05-27 07:53 | XMS_ITS | Data Portability ---
Author Organization [place] [facility] [employer], Main Office Address [address] [place] [address] Care Team Providers Care Catalyst Operator Chief Name Role Phone KEANU SANTIAGO Primary Care Provider [phone] KEANU SANTIAGO Referring Provider [phone] Assessment Encounter Date Assessment Date Assessment LastModified [...] more than half the time spent in kkxr-iq-otze care. Not available 02/01/2023 14:31:51 03/07/2023 03/07/2023 [...] spent treatment patient more half of this xqey-br-ucsw conversation Not available 03/07/2023 12:20:35 03/28/2023 03/28/2023 [...] knee 024 03/28/19 24 [email or web address] [facility] [place], [address], [place], [address], 4 16:37:40 XR, knee 024 03/07/19 24 [email or web address] [facility] [place], [address], [place], [address], 4 12:21:50 Medication Orders None record ed. Patient TargetsNo targets recorded. Patient InstructionsNo instructions recorded. Reason for Referral None Reported. Results Created Date Observation Date Name Description Value Unit Range Abnormal Flag Note LastModifiedBy Organization Detail LastModifiedTime 06/07/19 22 XR, hand No observ ation record ed. [id number] [facility] [place] [address], [place], [address], 05/02/2022 01:01:26 06/07/19 22 XR, shoul karlie No observ ation record ed. [id number] [facility] [place] [address], [place], [address], 05/02/2022 01:01:26 06/21/19 22 XR, humer us No observ ation record ed. [id number] [facility] [place] [address], [place], [address], 05/02/2022 01:01:26 07/05/19 22 XR, hand No observ ation record ed. [id number] [facility] [place] [address], [place], [address], 05/02/2022 01:01:26 07/05/19 22 XR, shoul karlie No observ ation record ed. [id number] [facility] [place] [address], [place], [address], 05/02/2022 01:01:26 07/28/19 22 07/27/2021 XR, shoul karlie No observ ation record ed. [id number] [facility] [place] [address], [place], [address], 05/02/2022 01:01:26 01/30/20 23 XR, knee No observ ation record ed. [email or web address] Not Available 2022 16:59:15 03/07/19 24 XR, knee No observ ation record ed. [facility] [place] [address], [place], [address], 03/07/2023 12:18:44 03/28/19 24 XR, knee No observ ation record ed. [facility] [place] [address], [place], [address], 03/28/2023 16:31:08 Result Notes None recorded. Problems Name Problem SNOMED Code Status Onset Date Resolution Date Notes Provider Name and Address Organization Details Recorded Time Pain of right shoulder joint 13733753592722 100 Active 2021 Not Available [facility] 3 00:59:39 Fracture of phalanx of finger 03465963 Active 2021 Not Available [facility] 3 00:59:39 Pain of left hand 79944579986742 3 Active 2021 Not Available [facility] 3 00:59:39 Closed fracture of upper end of humerus 52595886 Active 2021 Not Available [facility] 3 00:59:40 Pain of right knee joint 83530359026393 0 Active 2022 NAPOLEON Wan, [facility] 3 12:25:42 Fracture of ankle 36165601 Active 2023 NAPOLEON Wan, [facility] 4 10:58:49 Closed fracture of right patella 19164332169005 100 Active 2023 MONA Red [address] [place] [address], [place] [address], [place], [address] , [facility] 4 11:35:53 Problem Notes None recorded. Procedures Surgical History Date Name Laterality Status Provider Name and Address Organization Details Recorded Time Breast Surgery completed Not Available [facility] 05/02/2022 00:58:24 procedure on hand completed Not Available [facility] 05/02/2022 00:58:24 Cataract Surgery completed Not Available [facility] 05/02/2022 00:58:24 Imaging Results Imaging Date Name Status LastModified by [facility] Details LastModified Time 06/06/2021 XR, hand completed [id number] [facility] [place] [address], [place], [address], 05/02/2022 01:01:26 06/06/2021 XR, shoulder completed [id number] 30 026 [facility] [place] [address], [place], [address], 05/02/2022 01:01:26 06/20/2021 XR, humerus completed [id number] 30 026 [facility] [place] [address], [place], [address], 05/02/2022 01:01:26 07/27/2021 XR, shoulder completed [id number] 026 [facility] [place] [address], [place], [address], 05/02/2022 01:01:26 07/04/2021 XR, hand completed [id number] 026 [facility] [place] [address], [place], [address], 05/02/2022 01:01:26 07/04/2021 XR, shoulder completed [id number] 30 026 [facility] [place] [address], [place], [address], 05/02/2022 01:01:26 01/29/2023 XR, knee completed [email or web address] Information no t available 01/29/2023 16:59:15 03/07/2023 XR, knee completed [facility] [place] [address], [place], [address], 03/07/2023 12:18:44 03/28/2023 XR, knee completed [facility] [place] [address], [place], [address], 03/28/2023 16:31:08 Procedure Notes None recorded. Medical [...] Updated DateTime 07/04/2021 144.78 cm Not Available [facility] 3 00:58:55 Date Recorded Body height Provider Name an d Address Organization Details Last Updated DateTime 07/27/2021 144.78 cm Not Available [facility] 3 00:58:55 Date Recorded Body height Body mass index (BMI) Body weight Provider Name and Address Organization Details Last Updated DateTime 01/31/2023 144.78 cm 32.9 kg/m2 91002.04 g Krys Campos Mary Jo [facility] [employer] [facility] 01/31/2023 12:39:06 Date Recorded Body height Provider Name an d Address Organization Details Last Updated DateTime 03/07/2023 144.78 cm Krys Campos Mary Jo [facility] [employer] [facility] 03/07/2023 10:57:14 Date Recorded Body height Provider Name an d Address Organization Details Last Updated DateTime 03/28/2023 144.78 cm Michela Gardenia [facility] [employer] [facility] 03/28/2023 14:13:14 Social History Question Answer Notes LastModified by Organizat ion Details LastModified Time Tobacco Smoking Status Never Smoker Not Available [facility] 05/02/2022 00:58:03 What Is Your Level Of Alcohol Consumption? None [id number] Information not available 05/02/2022 Sex: Unknown Functional Status None recorded. Mental Status None recorded. Family History Relationship Description Onset Age of this Age Resolved Age Notes LastModified by Organization Details LastModified Time Father Hypertensive disorder [id number] Not available 05/02/2022 00:58:26 Father Diabetes mellitus [id number] Not available 05/02/2022 00:58:26 Mother Hypertensive disorder [id number] Not available 05/02/2022 00:58:26 Mother Diabetes mellitus [id number] Not available 05/02/2022 00:58:26 Medical History Condition [...] HAVE YOU BEEN HOSPITALIZED OR SEEN IN [facility] IN THE PAST YEAR ? N BURSITIS [...] SNOMED-CT Code Diagnosis ICD10 Code Diagnosis Note [id number] [facility] [place] [address] [place] [address] 05/23/2021 00:00:00 05/27/2021 12:10:32 [id number] [facility] [place] [address] [place] [address] 06/06/2021 00:00:00 06/06/2021 14:59:59 [id number] [facility] [place] [address] [place] [address] 06/20/2021 00:00:00 06/20/2021 10:31:52 [id number] [facility] [place] [address] [place] [address] 07/04/2021 00:00:00 07/04/2021 17:33:55 [id number] [facility] [place] [address] [place] [address] 07/27/2021 00:00:00 07/30/2021 17:54:03 [id number] Christian Olsen MD [facility] [place] [address] [place] [address] 01/31/2023 12:01:28 02/03/2023 10:53:27 Pain of right knee joint 6296904314 52850 M25.127 [id number] MONA Red [facility] [place] [address] [place] [address] 03/07/2023 10:46:53 03/07/2023 12:21:50 Closed fracture of right patella 8282733986 [id number] S82.001A [id number] MONA Red [facility] [place] [address] [place] [address] 03/28/2023 14:03:48 03/28/2023 16:37:40 Pain of right knee joint 5866662880 51281 M25.561 Health Concerns Section Related Observation LastModified by Organization Detai ls LastModified Time None Recorded Concern Status LastModified by Organization Details LastModified Time None Recorded Advance Directives Directive None Recorded Payers Encounter Date Sequence Insurance Name Policy Number Policy Guerrero Covered Member ID Guerrero Member ID Guarantor Name 01/31/2023 1 [place] Elayne Salmeron [id number] Elayne Salmeron 01/31/2023 2 [employer] (MEDICARE SUPPLEMENT) Elayne Salmeron [id number] Elayne Salmeron 03/07/2023 1 [place] Elayne Salmeron [id number] Elayne Salmeron 03/07/2023 2 [employer] (MEDICARE SUPPLEMENT) Elayne Tamayoy [id number] Elayne Salmeron 03/28/2023 1 [place] Elayne Tamayoy [id number] Elayne Salmeron 03/28/2023 2 [employer] (MEDICARE SUPPLEMENT) Elayne Salmeron [id number] Elayne Salmeron Notes Date Note Type Note [...] with her son today. Christian Olsen MD [address] [place] [address], [facility] [address], [place], [address], [place] [facility] 02/01/2023 14:32:04 OBGyn Episode No OBEpisode recorded.
--- OUTSIDE RECORDS SUMMARY | 2024-05-27 07:54 | XMS_ITS | Clinical Summary ---
Author Organization [facility] Address [address] [place] [address] Care Team Providers Care Director Of Sustainable Design Name Role Phone Non-Staff, Provider Primary Care [...] - 05/20/2024 10:50 AM CDT Hospital Encounter [place] [address] [place] [address] Judi Arreaga MD Discharge Disposition: Home or Self Care (Routine Discharge) 05/20/2024 Travel 05/20/2024 Hospital Orders Only [facility] [address] [place] [address] Judi Arreaga MD 03/27/2024 Misc Documentation [facility] [address] [place] [address] Judi Arreaga MD 03/26/2024 8:03 AM CREW CAR DRIVER - 03/26/2024 11:59 PM CREW CAR DRIVER Hospital Encounter [facility] [address] [place] [address] Judi Arreaga MD Discharge Disposition: Home or Self Care (Routine Discharge) 03/26/2024 8:02 AM CREW CAR DRIVER Hospital Encounter [facility] [address] [place] [address] Dawson Linton MD Discharge Disposition: Home or Self Care (Routine Discharge) 03/26/2024 Travel 03/19/2024 Pre-Procedure Call [facility] [address] [place] [address] Randee Alas RN Preprocedure Call (Spoke with Dr. Nguyen's office and they will fax over signed office notes from 03/16/24 appt) 03/19/2024 Telephone [facility] [address] [place] [address] Katlyn Thurman RN Preprocedure Call (Son called to see if patient can have bone marrow biopsy appt earlier in the morning. Appt moved to 0830 lab, 0900 hold time and 1000 procedure. Son aware of changed time, npo at midnight and will need van driver helper for the way home. Son stated patient has been seen by Dr. Nguyen in [place] on 03/16. ) from Last 3 Months Social History Tobacco Use Types Packs/Day Years Used Date Smoking Tobacco: Never Smokeless Tobacco: Never Tobacco Cessation:Counseling Given: Not Answered Alcohol Use Standard Drinks/Week Comments Not Currently 0 (1 standard drink = 0.6 oz pur e alcohol) Comments Unknown Sex and Gender Information Value Date Recorded Sex Assigned at Female 03/26/2024 8:00 AM CREW CAR DRIVER Legal Sex Female 11:03 PM CREW CAR DRIVER Gender Identity Not on file Sexual Orientation Not on file Last Filed Vital Signs Vital Sign Reading Time Taken Comments Blood Pressure 137/48 03/26/2024 1:05 PM CREW CAR DRIVER Pulse 65 03/26/2024 1:05 PM CREW CAR DRIVER Temperature 35.7 C (96.3 F) 12/26/2023 9:21 AM CDT Respiratory Rate 24 03/26/2024 1:05 PM CREW CAR DRIVER Oxygen Saturation 94% 03/26/2024 1:18 PM CREW CAR DRIVER Inhaled Oxygen Concentration - - Weight 68 kg (150 lb) 03/26/2024 9:21 AM CREW CAR DRIVER Height 149.9 cm (4' 11 ) 03/26/2024 9:21 AM CREW CAR DRIVER Body Mass Index 30.3 03/26/2024 9:21 AM CREW CAR DRIVER Plan of Treatment Health Maintenance Due Date [...] CHEST+ABD+PEL W CON Routine 03/26/2024 12:20 PM CREW CAR DRIVER Lymphoma, small lymphocytic ([facility] CT GD ASPIR+BX BONE MARROW Routine 03/26/2024 12:15 PM CREW CAR DRIVER Lymphoma, small lymphocytic (CMS/HCC HHS/HCC) CREATININE WHOLE BLOOD Routine 03/26/2024 12:15 PM CREW CAR DRIVER FLOW CYTOMETRY Routine 03/26/2024 11:55 AM CREW CAR DRIVER CHROMOSOME ANALYSIS HEMATOLOGIC MALIGNANCY Routine 03/26/2024 11:55 AM CREW CAR DRIVER XR CHEST PA OR AP 1V STAT 03/26/2024 10:47 AM CREW CAR DRIVER Lymphoma, small lymphocytic (CMS/HCC HHS/HCC) TYPE & SCREEN STAT 03/26/2024 9:58 AM CREW CAR DRIVER Lymphoma, small lymphocytic (CMS/HCC HHS/HCC) CBC W/DIFF AUTOMATED Routine 03/26/2024 8:28 AM CREW CAR DRIVER Lymphoma, small lymphocytic (CMS/HCC HHS/HCC) PROTHROMBIN TIME, VENOUS Routine 03/26/2024 8:28 AM CREW CAR DRIVER Lymphoma, small lymphocytic (CMS/HCC HHS/HCC) PATHOLOGY Routine 03/26/2024 12:00 AM CREW CAR DRIVER from Last 3 Months Results * CT CHEST+ABD+PEL W CON (03/26/2024 12:20 PM CREW CAR DRIVER) Anatomical Region Laterality Modality Chest, Abdomen, Pelvis Computed Tomography 04/04/2024 9:43 AM CREW CAR DRIVER Impressions 04/04/2024 10:02 AM CREW CAR DRIVER Impression: 1. Mediastinal and hilar lymphadenopathy as [...] 04/04/2024 9:43 AM Narrative 04/04/2024 10:02 AM CREW CAR DRIVER [place] [address] Examination: CT chest, abdomen and pelvis with [...] Procedure Note Rei Gaines MD - 04/04/[address] [address] Examination: CT chest, abdomen and pelvis with [...] left and trace right pleural effusions. Irregular wrgxeeybkbibrd-rb-tid opacities are present within both lungs, most [...] GD ASPIR+BX BONE MARROW (03/26/2024 12:15 PM CREW CAR DRIVER) Anatomical Region Laterality Modality Bone Computed Tomogra phy, Radiographic Imaging 03/26/2024 4:31 PM CREW CAR DRIVER Impressions 03/26/2024 5:05 PM CREW CAR DRIVER IMPRESSION: CT-guided percutaneous bone marrow biopsy, as described. The attending radiologist, Dr. Webber, was in the department for all critical portions of the procedure, has reviewed the images, and agrees with the content of this report. Dictated By: MONA Eric on 03/26/2024 4:31 PM Ordered By: JUDI ARREAGA Interpreted By: MONA Eric, 03/26/2024 4:31 PM Narrative 03/26/2024 5:05 PM CREW CAR DRIVER [address] [address] PROCEDURE: CT-guided bone marrow aspiration and biopsy DATE OF PROCEDURE: 03/26/2024 11:45 AM INDICATION: History of CLL. Primary provider: Mik Kim PA-C Supervising provider: Jamshid Webber M.D. Conscious sedation: Administered and monitored by a qualified interventional radiology nurse under supervision of the interventional physician bus assistant. There was continuous monitoring of vital signs including pulse oximetry, end-tidal CO2, and EKG. Total intraservice or zvot-sh-qaby sedation time: 5 minutes. TECHNIQUE AND FINDINGS: Informed written consent was obtained. The patient was then brought to the CT scanner suite, placed in the prone position, and [place] protocol was observed to verify correct patient, [...] The needle was then connected to an [employer] motorized device to penetrate the cortex. At [...] Procedure Note Jamshid Webber MD - 03/26/[address] [address] PROCEDURE: CT-guided bone marrow aspiration and biopsy DATE OF PROCEDURE: 03/26/2024 11:45 AM INDICATION: History of CLL. Primary provider: Mik Kim PA-C Supervising provider: Jamshid Webber M.D. Conscious sedation: Administered and monitored by a qualifiedinterventional radiology nurse under supervision of the interventionalphysician bus assistant. There was continuous monitoring of vital signsincluding pulse oximetry, end-tidal CO2, and EKG. Total intraservice tfcvrz-rp-umdp sedation time: 5 minutes. TECHNIQUE AND FINDINGS: Informed written consent was obtained. The patient was then brought to theCT scanner suite, placed in the prone position, and [place] protocol wasobserved to verify correct patient, site, [...] visualization. The needle was then connected to [employer] motorized device to penetrate the cortex. At [...] (ABNORMAL) CREATININE WHOLE BLOOD (03/26/2024 12:15 PM CREW CAR DRIVER) CREATININE WHOLE BLOOD 0.9 0.6 - 1.3 mg/dL 03/26/2024 12:24 PM CREW CAR DRIVER [facility] GFR ESTIMATE 65(L) >90 ML/MIN/1. 73 M2 03/26/2024 12:24 PM CREW CAR DRIVER [facility] GFR NOTES GFR REFERENCE S: 03/26/2024 12:24 PM CREW CAR DRIVER [facility] Comment: THE ESTIMATED GFR IS [...] TEST WAS PERFORMED: 1215 03/26/2024 12:24 PM CREW CAR DRIVER [facility] 03/26/2024 12:1 5 PM CREW CAR DRIVER Dawson Linton MD LABORATORY Final Result [facility] [address] [place] [address], [phone] * Flow Cytometry (03/26/2024 11:55 AM CREW CAR DRIVER) FLOW CYTOMETRY RESULTS [facility] Department of Laboratory Medicine [address] [place] [address] , extension [phone] Pathology Report Flow Cytometry Report Name: CICI HUTCHINSON Specimen #: [id number] Age: 2 1945 (Age: 78) Location: [facility] Sex: F Procedure Date: 03/26/2024 Hospital #: [id number] Date Received: 03/26/2024 Date Reported: 04/08/2024 Provider: JDUI ARREAGA MD Source: Bone marrow aspiration (See [...] cells. Result: Tested: CD45, CD19, CD20, Surface [place], Surface Lambda, CD5, CD10, CD38, CD34, CD14, [...] developed and its performance characteristics determined by [facility]. It has not been cleared or approved by the U.S. Food and Drug Administration. However, the use of Analyte Specific Reagents does not require FDA approval. [facility] 03/26/2024 11:5 5 AM CREW CAR DRIVER 03/26/2024 12:15 PM CREW CAR DRIVER Comment:Bone marrow aspirati on (See report [id number]) us Judi Arreaga MD PATHOLOGY/CYTOLOGY OR DERABLES Final Result [facility] [address] [place] [address], [place] [phone] * CHROMOSOME ANALYSIS HEMATOLOGIC MALIGNANCY (03/26/2024 11:55 AM CREW CAR DRIVER) SPECIMEN SOURCE BONE MARROW NA AHEP 03/26/2024 3:11 PM CREW CAR DRIVER [facility] CLINICAL INDICATION LYMPHOMA 03/26/2024 3:11 PM CREW CAR DRIVER [facility] PRIOR THERAPY/TRANSPLANT UNK 03/26/2024 3:11 PM CREW CAR DRIVER [facility] PHYSICIAN PHONE [phone] 3:11 PM CREW CAR DRIVER [facility] Comment: [phone] CLIENT PHONE [phone] 03/26/2024 3:11 PM CREW CAR DRIVER [facility] Comment: [phone] CHROMOSOME BLOOD REPORT 04/01/19 2:52 PM CREW CAR DRIVER [employer] FREDDIEGUSTAVO VELAZQUEZ Comment: Order ID: [id number] Specimen Type: Bone Marrow Clinical Indication: Lymphoma [...] 47,XX,+12[14]/46,XX[6] ASSAY INFORMATION: Method: G-Band (Digital Analysis: [employer]) Cells Counted: 20 Band Level: 400 Cells Analyzed: 20 Cells Karyotyped: 4 Small clonal populations and subtle chromosome abnormalities may not be identified. Irish Brannon, Ph.D., [facility], Hair And Makeup Designer, Cytogenetics and Genomics, Electronic Signature: 04/01/2024 3:08 PM For more information on this test, go to [email or web address]/Ca-chromosome Test Performed by [facility], [employer] [facility], [address] [place] [address] Mike Santana M.D., Ph.D., Director of Laboratories , [place] [id number] 03/26/2024 11:5 5 AM CREW CAR DRIVER Judi Arreaga MD LABORATORY Final Result [employer] [facility] [address] [place], [place] , [place] [phone] [facility] [address] [place] [address], [place] [phone] * XR CHEST PA OR AP 1V (03/26/2024 10:47 AM CREW CAR DRIVER) Anatomical Region Laterality Modality Chest Radiographic Fidelia ging 03/26/2024 11:0 4 AM CREW CAR DRIVER Impressions 03/26/2024 11:14 AM CREW CAR DRIVER IMPRESSION: Cardiomegaly with probable pulmonary congestion/mild interstitial CHF.Patchy opacity in the left midlung laterally which could represent pneumonia. Recommend correlation with any recent outside films if possible. Ordered By: JAMSHID WEBBER Interpreted By: Jamshid Webber MD, 03/26/2024 11:04 AM Narrative 03/26/2024 11:14 AM CREW CAR DRIVER [place] [address] EXAM DESCRIPTION: Chest 1 view EXAM TIME : 03/26/2024 10:44 AM INDICATION: Shortness of breath. History of CLL. Patient apparently has history of ELIER. COMPARISON FILM : CTA chest 08/23/2016. TECHNIQUE: Chest- 1 - view, 1 - images FINDINGS: Upright AP film obtained. Interval removal of previously present Ibwxzo-l-Xiga. Mild cardiomegaly. Calcified aortic knob. Central pulmonary congestion with interstitial changes suggestive of CHF. In addition there is patchy groundglass opacity in the left midlung laterally which could represent pneumonia. Lungs questionable very minimal blunting left costophrenic angle, no significant size effusions. No pneumothorax. No acute bony abnormality. Procedure Note Jamshid Webber MD - 03/26/2024 [facility] [address] [place], [place] [address] EXAM DESCRIPTION: Chest 1 view EXAM TIME : 03/26/2024 10:44 AM INDICATION: Shortness of breath. History of CLL. Patient apparently hashistory of ELIER. COMPARISON FILM : CTA chest 08/23/2016. TECHNIQUE: Chest- 1 - view, 1 - images FINDINGS: Upright AP film obtained. Interval removal of previously ojyumpgZiqjhd-y-Jbly. Mild cardiomegaly. Calcified aortic knob. Centralpulmonary congestion [...] * TYPE & SCREEN (03/26/2024 9:58 AM CREW CAR DRIVER) UNITS ORDERED 1 03/26/2024 10:20 AM CREW CAR DRIVER [facility] ABO/RH A POSITIVE 03/26/2024 10:54 AM CREW CAR DRIVER [facility] ANTIBODY SCREEN NEGATIVE 03/26/2024 10:54 AM CREW CAR DRIVER [facility] SAMPLE EXPIRATION 03/29/2024,2 359 03/26/2024 10:09 AM CREW CAR DRIVER [facility] 03/26/2024 9:58 AM CREW CAR DRIVER Mik Kim PA-C BLOOD BANK TEST ORDERABLES Final Result Performing Organization Address [facility] de Phone Number [facility] [address] [place] [address], [phone] * (ABNORMAL) PROTIME/INR, VENOUS (PROTHROMBIN TIME) (03/26/2024 8:28 AM CREW CAR DRIVER) PROTIME 14.3(H) 9.4 - 12.5 SEC 03/26/2024 9:06 AM CREW CAR DRIVER [facility] INR 1.2(H) 0.8 - 1.1 03/26/2024 9:06 AM CREW CAR DRIVER [facility] 03/26/2024 8:28 AM CREW CAR DRIVER Dawson Linton MD LABORATORY Final Result Performing Organization Address [facility] de Phone Number [facility] [address] [place] [address], [phone] * (ABNORMAL) CBC W/DIFF AUTOMATED (03/26/2024 8:28 AM CREW CAR DRIVER) WBC 6.16 4.00 - 10.80 x10'3/uL 03/26/2024 9:26 AM CREW CAR DRIVER [facility] RBC 2.39(L) 4.10 - 5.40 x10'6/uL 03/26/2024 9:26 AM CREW CAR DRIVER [facility] HGB 6.7(LL) 12.0 - 16.0 G/DL 03/26/2024 9:26 AM CREW CAR DRIVER [facility] Comment: This result has been called to [id number] IN RADIOLOGY by [id number] on 03/26/2024 09:24:23, and has been read back. HCT 21.8(L) 36.0 - 47.0 % 03/26/2024 9:26 AM [facility] MCV 91.2 78.0 - 100.0 FL 03/26/2024 9:26 AM [facility] MCH 28.0 27.0 - 31.0 PG 03/26/2024 9:26 AM [facility] MCHC 30.7(L) 33.0 - 36.0 G/DL 03/26/2024 9:26 AM [facility] RDW 17.1(H) 11.5 - 14.5 % 03/26/2024 9:26 AM [facility] PLT 48(L) 150 - 350 x10'3/uL 03/26/2024 9:26 AM [facility] MPV 10.8(H) 7.4 - 10.4 FL 03/26/2024 9:26 AM [facility] DIFFERENTIAL TYPE MANUAL DIFFERENTIAL 03/26/2024 9:29 AM [facility] NRBC % 0.0 % 03/26/2024 9:29 AM [facility] SEG NEUTROPHILS 70 % 9:29 AM [facility] LYMPHOCYTES 22 % 03/26/2024 9:29 AM [facility] MONOCYTES 4 % 03/26/2024 9:29 AM [facility] EOSINOPHILS 3 % 03/26/2024 9:29 AM [facility] BASOPHILS 1 % 03/26/2024 9:29 AM [facility] ABS. NEUTROPHILS 4.31 1.60 - 8.30 x10'3/uL 03/26/2024 9:29 AM [facility] ABS. LYMPHOCYTES 1.36 0.80 - 4.70 x10'3/uL 03/26/2024 9:29 AM [facility] ABS. MONOCYTES 0.25 0.00 - 1.50 x10'3/uL 03/26/2024 9:29 AM CREW CAR DRIVER [facility] ABS. EOSINOPHILS 0.18 0.00 - 0.40 x10'3/uL 03/26/2024 9:29 AM CREW CAR DRIVER [facility] ABS. BASOPHILS 0.06 0.00 - 0.20 x10'3/uL 03/26/2024 9:29 AM [facility] ABS. NUCLEATED RBC'S 0.00 0.00 - 0.01 x10'3/uL 03/26/2024 9:29 AM CREW CAR DRIVER [facility] RBC MORPHOLOGY SLIDE REVIEWED 2024 9:29 AM CREW CAR DRIVER [facility] ANISO SLIGHT 03/26/2024 9:29 AM CREW CAR DRIVER [facility] POIKLO SLIGHT 03/26/2024 9:29 AM [facility] HYPOCHROMASIA SLIGHT 03/26/2024 9:29 AM [facility] OVALOCYTES PRESENT 03/26/2024 9:29 AM [facility] TEAR DROP PRESENT 03/26/2024 9:29 AM CREW CAR DRIVER [facility] PLT EST. DECREASED 03/26/2024 9:29 AM [facility] 03/26/2024 8:28 AM CREW CAR DRIVER Dawson Linton MD LABORATORY Final Result Performing Organization Address City/State/[facility] Co de Phone Number [facility] [address] [place] [phone], [phone] * Pathology (03/26/2024 12:00 AM CREW CAR DRIVER) PATHOLOGY [facility] Department of Laboratory Medicine [address] [place] [address] , extension [phone] Pathology Report Addendum Bone Marrow Report Name: CICI HUTCHINSON Specimen #: [id number] Age: 2 1945 (Age: 78) Location: [facility] Sex: F Procedure Date: 03/26/2024 [facility] #: [id number] Date Received: 03/26/2024 Date Reported: / Provider: [...] similar finding in the marrow at the [facility], see their report [id number]. There is no evidence of transformation in [...] with the guidelines of the College of [place] [employer] for the report of cancer specimens. [...] Gross examination (when applicable) was performed at [facility], [address] [facility], [place] [address]. This case was interpreted and signed out at [facility], [address] [place] [address]. All immunohistochemical and histochemical tests were developed by and performed at [facility], [address] [place] [address]. All tests reported here have not been [...] Addendum Comment Routine cytogenetics is performed at [facility] 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 Trisomy 12 is a recurrent abnormality in chronic/small lymphocytic lymphoma. In CLL/SLL trisomy 12 is often associated with atypical immunophenotype and lymphocyte morphology. These findings correspond with the bone marrow biopsy results of CLL/SLL. [facility] 03/26/2024 03/26/2024 1:3 0 PM CREW CAR DRIVER Comment:Bone marrow aspirati on right iliac&Bone marrow biopsy right iliac Judi Arreaga MD PATHOLOGY/CYTOLOGY OR DERABLES Final Result [facility] [address] [place] [address], [phone] from Last 3 Months Insurance [employer] Care Teams Director Of Sustainable Design Relationship Specialty Start Date End Date Non-Staff, Provider PCP - General UNKNOWN PHYSICIAN SPECIALTY 12/25/23
--- OUTSIDE RECORDS SUMMARY | 2024-05-27 07:54 | XMS_ITS | Encounter Summary ---
Author Organization [facility] Address [facility] [address] [place] [address] Care Team Providers Care Special Education Director Name Role Phone Non-Staff, Provider Primary Care Provider Luis troncoso Reason for Visit * Reason Onset Date Comments Preprocedure Call 03/19/[address] Nguyen's office and they will fax over signed office notes from 03/16/24 appt Encounter Details Date Type Department Care Team (Latest Contact Info) Description 03/19/2024 Pre-Procedure Call [facility] Interventional Radiology [address] [place] [address] Randee Alas RN Preprocedure Call (Spoke with [...] Sex Assigned at Female 03/26/2024 8:00 AM QUARRYMAN Legal Sex Female 11:03 PM QUARRYMAN Gender Identity Not on file Sexual Orientation [...] on filedocumented in this encounter Care Teams Special Education Director Relationship Specialty Start Date End Date Non-Staff, Provider PCP - General UNKNOWN PHYSICIAN SPECIALTY 12/25/23 documented as of this encounter
[2024-05-27 08:10] VITALS: BP 116/58; PULSE 78; RESP 16; TEMP 36.5; O2SAT 97; BMI 30.7
[2024-05-27 08:11] LABS: Hematocrit 25.6 % (35.0-42.0); Hemoglobin 7.8 g/dL (11.7-13.8); Immature Platelet Fraction Pct 2.5 % (1.0-7.0); Mean Corpuscular HGB Conc 30.5 g/dL (32-36); Mean Corpuscular Hemoglobin 27.9 pg (27.0-31.0); Mean Corpuscular Volume 91.4 fL (78.0-102.0); Mean Platelet Volume 10.6 fl (9.2-11.8); Platelet Count Result 50 K/mm3 (150-420); Red Cell Distribution Width 19.9 % (11.6-14.4); White Blood Count 6.6 K/mm3 (4.8-10.8)
[2024-05-27 08:22] LABS: Band Neutrophils Percent 0 % (0-6); Eosinophils Absolute Manual 0.13 K/mm3 (0.02-0.50); Eosinophils Percent Manual 2 % (1-6); Lymphocytes Absolute Manual 1.78 K/mm3 (1.1-4.5); Lymphocytes Percent Manual 27 % (18-44); Monocytes Absolute Manual 0.52 K/mm3 (0.1-0.90); Monocytes Percent Manual 8 % (3-9); Neutrophils Absolute Manual 4.15 K/mm3 (1.7-7.2); Neutrophils Percent Manual 63 % (46-73); Platelet Estimate Decreased (Adequate); Total Cells Counted 100
[2024-05-27 08:23] LABS: Alanine Aminotransferase 9 U/L (14-59); Albumin Level 2.8 g/dL (3.4-5.0); Alkaline Phosphatase 85 U/L (46-116); Anion Gap 8 mmol/L (4-12); Aspartate Amino Transferase 21 U/L (15-37); Bilirubin,Total 0.8 mg/dL (0.00-1.00); Blood Urea Nitrogen 17 mg/dL (7-18); Calcium 8.3 mg/dL (8.5-10.1); Carbon Dioxide 28 mmol/L (21-32); Chloride 99 mmol/L (98-108); Estimated Glomerular Filt Rate 43; Glucose 197 mg/dL (70-99); Osmolality Calculated 286 mOsm/kg (285-295); Potassium 3.2 mmol/L (3.5-5.1); Sodium 135 mmol/L (136-145); Total Protein 7.1 g/dL (6.4-8.2)
[2024-05-27] MEDS: SODIUM CHLORIDE 0.9% IV 250 ML 10 ML IVPB (08:30)
[2024-05-27] MEDS: dexAMETHasone SOD PHOS INJ 4 MG/ML VIAL 12 MG IV PUSH (08:35)
[2024-05-27] MEDS: diphenhydrAMINE HCl INJ 50 MG/ML VIAL 25 MG IV PUSH (08:37)
[2024-05-27] MEDS: FAMOTIDINE 20 MG/2 ML VIAL IV PUSH (08:39)
[2024-05-27] MEDS: ACETAMINOPHEN 325 MG TABLET 650 MG PO (08:39)
[2024-05-27 09:25] VITALS: BP 121/70; PULSE 76; RESP 14; O2SAT 97
[2024-05-27 12:51] VITALS: BP 121/77; PULSE 76; RESP 16; TEMP 36.7; O2SAT 96
[2024-05-27] MEDS: HEPARIN SODIUM LOCK FLUSH 500 UNITS/5 ML SYRINGE IV PUSH (12:51)
--- NOTE | 2024-05-27 12:55 | PC.NURSE ---
Patient tolerated Rituximab infusion well. SEE MAR/patient care notes.
== END 2024-05-27 07:44 | disposition home or self-care (01) ==
PROVIDERS: PCP Internal Medicine; Visit Provider Internal Medicine Hematology
DX: Z51.11 Encounter for antineoplastic chemotherapy (principal); C91.10 Chronic lymphocytic leukemia of B-cell type not having achieved remission
CPT/HCPCS: 36415; 36591; 80053; 85025; 85055; 96375; 96413; 96415; A9270; J1100; J1200; J7040; J7050; Q5119

== ENCOUNTER 2024-06-03 07:46 | Outpatient (CLI) | payer MEDICARE, SELFPAY ==
--- OUTSIDE RECORDS SUMMARY | 2024-06-03 07:55 | XMS_ITS ---
Author Organization [facility] Address [address] [place], [place] [id number] Care Team Providers Care Photo Machine Operator Name Role Phone [facility] Unavailable [phone] Jonathon Nguyen Unavailable Unavailable REASON FOR VISIT *General care Encounters Encounter Location Date Provider Diagnosis [address] [id number] 04/22/2024 [facility] Plan Of Treatment No Information Progress Notes * CICI HUTCHINSON KDOB:[birth year] (79 yo F)Acc No.[id number]:04/22/2024 Patient: MARIA ELENA DEANLIAndres Mar Provider: Andres Gibson DPM :1945 A ge:78 Y S ex:Female Date:04/22/2024 Address:[address] [place], [place] [id number] Subjective: * Chief Complaints: * 1 . *General care. * Medical History: Objective: * Vitals: Assessment: Plan: * Treatment: * Billing Information: * Visit Code: * Procedure Codes: * Electronic signature of CHI GIBSON DPM on 06/03/2024 at 07:55 AM CDT Sign off status: Pending * Provider: Andres Gibson DPM Date: 04/22/2024 Generated for Printi ng/Fanonig/eTransmitting on: 0 06/03/2024 07:55 AM CDT
--- OUTSIDE RECORDS SUMMARY | 2024-06-03 07:56 | XMS_ITS | Encounter Summary ---
Author Organization [facility] Address [address] [place] [address] Care Team Providers Care Cena Name Role Phone Non-Staff, Provider Primary Care Provider Luis troncoso Encounter Details Date Type Department Care Team (Late st Contact Info) Description 05/20/2024 Hospital Orders Only [place] [facility] [address] [place] [address] Pema Kinsey MD [address] [place] [address] Social History Tobacco Use Types Packs/Day Years Used Date Smoking Tobacco: Never Smokeless Tobacco: Never Alcohol Use Standard Drinks/Week Comments Not Currently 0 (1 standard drink = 0.6 oz pur e alcohol) Comments Unknown Sex and Gender Information Value Date Recorded Sex Assigned at Female 03/26/2024 8:00 AM COMPUTER SYSTEMS ADMINISTRATOR Legal Sex Female 11:03 PM COMPUTER SYSTEMS ADMINISTRATOR Gender Identity Not on file Sexual [...] on filedocumented in this encounter Care Teams Cena Relationship Specialty Start Date End Date Non-Staff, Provider PCP - General UNKNOWN PHYSICIAN SPECIALTY 12/25/23 documented as of this encounter
--- OUTSIDE RECORDS SUMMARY | 2024-06-03 07:56 | XMS_ITS | Patient Health Record ---
Author Organization [facility] Address [address] [place], [place] [address] Care Team Providers Care Operators School Manager Name Role Phone CHI GIBSON Unavailable [phone] Jonathon Nguyen Unavailable Unavailable BILL PEREZ Unavailable [phone] Allergies No Known Allergies Reason For Referral No Information Medications Medication SIG (Take, Route, Frequency, Duration) Notes Start Date End Date Status chondroitin sulfates 250 MG Oral Capsule ORAL chondroitin sulfates 250 MG Oral CapsuleOriginal Medicationchondroitin sulfates 250 MG Oral Capsule *Reorder from [employer] for eRx and Interaction Alerts* 07/20/2012 Active aspirin 81 MG Delayed Release Oral Tablet [[employer] Aspirin] ORAL aspirin 81 MG Delayed Release Oral Tablet [[employer] Aspirin]Original Medicationaspirin 81 MG Delayed Release Oral Tablet [[employer] Aspirin] *Reorder from [employer] for eRx and Interaction Alerts* 07/20/2012 Active Glucosamine Sulfate 500 MG Oral Tablet ORAL glucosamine sulfate 500 MG Oral TabletOriginal Medicationglucosamine sulfate 500 MG Oral Tablet *Reorder from [employer] for eRx and Interaction Alerts* 07/20/2012 Active Magnesium Gluconate 550 MG Oral Tablet ORAL magnesium gluconate 550 MG Oral TabletOriginal Medicationmagnesium gluconate 550 MG Oral Tablet *Reorder from [employer] for eRx and Interaction Alerts* 07/20/2012 Active Immunizations Vaccine Route Administration Date Status Comme nts Influenza, high dose seasonal Unknown 12/19/2022 Admini stered Vital Signs Height-cm 149.86 cm 07/10/2023 Weight-kg 69.85 kg 07/10/2023 Height 59.00 in 07/10/2023 Weight 154 lbs 07/10/2023 BMI 31.1 kg/m2 07/10/2023 Encounters Encounter Location Date Provider Diagnosis [address] [id number] 07/10/2023 BILL PEREZ Tinea unguium B35.1 ; Pain in right toe(s) M79.674 ; Pain in left toe(s) M79.675 ; Other hammer toe(s) (acquired), right foot M20.41 ; Other hammer toe(s) (acquired), left foot M20.42 ; 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, bilateral legs I70.203 and Type 2 diabetes mellitus with other circulatory complications E11.[address] [id number] 09/11/2023 BILL PEREZ Tinea unguium B35.1 ; Pain in right toe(s) M79.674 ; Pain in left toe(s) M79.675 ; Other hammer toe(s) (acquired), right foot M20.41 ; Other hammer toe(s) (acquired), left foot M20.42 ; 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, bilateral legs I70.203 and Type 2 diabetes mellitus with other circulatory complications E11.[address] [id number] 11/13/2023 BILL PEREZ Tinea unguium B35.1 ; Pain in right toe(s) M79.674 ; Pain in left toe(s) M79.675 ; Other hammer toe(s) (acquired), right foot M20.41 ; Other hammer toe(s) (acquired), left foot M20.42 ; 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, bilateral legs I70.203 and Type 2 diabetes mellitus with other circulatory complications E11.59 [place] [place], [place] [id number] 01/22/2024 BILL PEREZ Tinea unguium B35.1 ; Pain in right toe(s) M79.674 ; Pain in left toe(s) M79.675 ; Other hammer toe(s) (acquired), right foot M20.41 ; Other hammer toe(s) (acquired), left foot M20.42 ; 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, bilateral legs I70.203 and [...] (ICD-10 - M20.42) 07/10/2023 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, 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) Patient educated on risks and aggravating factors of PVD, including conservative treatment options such as a diet and exercise regimen to aid in slowing progression of vascular disease 09/11/2023 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, 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) Patient educated on risks and aggravating factors of PVD, including conservative treatment options such as a diet and exercise regimen to aid in slowing progression of vascular disease 11/13/2023 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, 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) Patient educated on risks and aggravating factors of PVD, including conservative treatment options such as a diet and exercise regimen to aid in slowing progression of vascular disease 01/22/2024 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, bilateral legs (ICD-10 - [...] Date Coverage End Date Medicare Part B [place] [address] [place] [address] [id number] CICI HUTCHINSON Self - patient is the insured [employer] [address] [address] [place] [address] [phone] [id number] CICI HUTCHINSON Self - patient is the insured
--- OUTSIDE RECORDS SUMMARY | 2024-06-03 07:56 | XMS_ITS ---
Author Organization [facility] Address [address] [place], [place] [address] Care Team Providers Care Classroom Technology Coach Name Role Phone CHI GIBSON Unavailable [phone] Jonathon Nguyen Unavailable Unavailable BILL PEREZ Unavailable [phone] REASON FOR VISIT *General care Medications Medication SIG (Take, Route, Frequency, Duration) Notes Start Date End Date Status chondroitin sulfates 250 MG Oral Capsule ORAL chondroitin sulfates 250 MG Oral CapsuleOriginal Medicationchondroitin sulfates 250 MG Oral Capsule *Reorder from [employer] for eRx and Interaction Alerts* 07/20/2012 Active aspirin 81 MG Delayed Release Oral Tablet [[employer]ately[employer] Aspirin] ORAL aspirin 81 MG Delayed Release Oral Tablet [[employer] Aspirin]Original Medicationaspirin 81 MG Delayed Release Oral Tablet [[employer] Aspirin] *Reorder from [employer] for eRx and Interaction Alerts* 07/20/2012 Active Glucosamine Sulfate 500 MG Oral Tablet ORAL glucosamine sulfate 500 MG Oral TabletOriginal Medicationglucosamine sulfate 500 MG Oral Tablet *Reorder from [employer] for eRx and Interaction Alerts* 07/20/2012 Active Magnesium Gluconate 550 MG Oral Tablet ORAL magnesium gluconate 550 MG Oral TabletOriginal Medicationmagnesium gluconate 550 MG Oral Tablet *Reorder from [employer] for eRx and Interaction Alerts* 07/20/2012 Active Encounters Encounter Location Date Provider Diagnosis [place] [place], [place] [id number] 01/22/2024 BILL PEREZ Tinea unguium B35.1 ; Pain in right toe(s) M79.674 ; Pain in left toe(s) M79.675 ; Other hammer toe(s) (acquired), right foot M20.41 ; Other hammer toe(s) (acquired), left foot M20.42 ; Unspecified atherosclerosis of ely shoshone arteries of extremities, bilateral legs I70.203 and [...] (ICD-10 - M20.42) 01/22/2024 Unspecified atherosclerosis of ely shoshone arteries of extremities, bilateral legs (ICD-10 - [...] conservative options were emphasized. Unspecified atherosclerosis of ely shoshone arteries of extremities, bilateral legs Patient educated [...] CICI HUTCHINSON KDOB:[birth year] (78 yo F)Acc No.[id number]:01/22/2024 Patient: CICI DEAN Provider: Livan PEREZ :1945 A ge:78 Y S ex:Female Date:01/22/2024 Address:[address] [place] [address], [place] [address] Subjective: * Chief Complaints: * 1 . *General care. * HPI: H PI: General care P atient presents to the office for diabetic foot care. Patient states that their nails are thickened, elongated and painful. Patient states that it is aggravated by shoe gear. Onset is gradual., Patient denies taking blood thinners., Date last seen by Dr. Nguyen was 01/2024., Initials [facility]. * ROS: G eneral / Constitutional: Patient denies w eakness. R espiratory: Patient denies c hronic cough, shortness of breath, sputum production. C ardiovascular: Patient denies c hest pain, history of CA, irregular heartbeat. M usculoskeletal: Patient complains of [...] gluconate 550 MG Oral Tablet *Reorder from [employer] for eRx and Interaction Alerts*, Taking Glucosamine Sulfate 500 MG Oral Tablet ORAL , Notes to Pharmacist: glucosamine sulfate 500 MG Oral TabletOriginal Medicationglucosamine sulfate 500 MG Oral Tablet *Reorder from [facility] for eRx and Interaction Alerts*, Taking aspirin 81 MG Delayed Release Oral Tablet [[employer] Aspirin] ORAL , Notes to Pharmacist: aspirin 81 MG Delayed Release Oral Tablet [[employer] Aspirin]Original Medicationaspirin 81 MG Delayed Release Oral Tablet [[employer] Aspirin] *Reorder from [facility] for eRx and Interaction Alerts*, Taking chondroitin sulfates 250 MG Oral Capsule ORAL , Notes to Pharmacist: chondroitin sulfates 250 MG Oral CapsuleOriginal Medicationchondroitin sulfates 250 MG Oral Capsule *Reorder from [facility] for eRx and Interaction Alerts* [...] M20.42 6 . U nspecified atherosclerosis of ely shoshone arteries of extremities, bilateral legs - I70.203 [...] were emphasized. 3. U nspecified atherosclerosis of ely shoshone arteries of extremities, bilateral legs Notes: Patient [...] Information: * Visit Code: * Procedure Codes: 68127 DEBRIDE NAIL, 6 OR MORE. Modifiers: Q8 * RUCTOR NURSE Sign off status: Completed true * Provider: Livan PEREZ Date: 03/23/2023 Generated for Rigoberto smith/Adali/Sharon on: 0 06/03/2024 07:56 AM CDT History and Physical Notes * [...]
--- OUTSIDE RECORDS SUMMARY | 2024-06-03 07:56 | XMS_ITS | Data Portability ---
Author Organization [place] [facility] [employer] Main Office Address [address] [place] [address] Care Team Providers Care Home Service Consultant Name Role Phone KEANU SANTIAGO Primary Care Provider [phone] KEANU SANTIAGO Referring Provider Assessment Encounter Date [...] more than half the time spent in [id number]-gb-cvcq care. Not available 02/01/2023 14:31:51 03/07/2023 03/07/2023 [...] spent treatment patient more half of this rahw-wt-vmaq conversation Not available 03/07/2023 12:20:35 03/28/2023 03/28/2023 [...] knee 024 03/28/19 24 [email or web address] [facility] [place], [address], [place], [address], 4 16:37:40 XR, knee 024 03/07/19 24 [email or web address] [facility] [place], [address], [place], [address], 4 12:21:50 Medication Orders None record ed. Patient TargetsNo targets recorded. Patient InstructionsNo instructions recorded. Reason for Referral None Reported. Results Created Date Observation Date Name Description Value Unit Range Abnormal Flag Note LastModifiedBy Organization Detail LastModifiedTime 06/07/19 22 XR, hand No observ ation record ed. [id number] [facility] [place] [address], [place], [address], 05/02/2022 01:01:26 06/07/19 22 XR, shoul karlie No observ ation record ed. [id number] [facility] [place] [address], [place], [address], 05/02/2022 01:01:26 06/21/19 22 XR, humer us No observ ation record ed. [id number] [facility] [place] [address], [place], [address], 05/02/2022 01:01:26 07/05/19 22 XR, hand No observ ation record ed. [id number] [facility] [place] [address], [place], [address], 05/02/2022 01:01:26 07/05/19 22 XR, shoul karlie No observ ation record ed. [id number] [facility] [place] [address], [place], [address], 05/02/2022 01:01:26 07/28/19 22 07/27/2021 XR, shoul karlie No observ ation record ed. [id number] [facility] [place] [address], [place], [address], 05/02/2022 01:01:26 01/30/20 23 XR, knee No observ ation record ed. Not Available 2022 16:59:15 03/07/19 24 XR, knee No observ ation record ed. [facility] [place] [address], [place], [address], 03/07/2023 12:18:44 03/28/19 24 XR, knee No observ ation record ed. [facility] [place] [address], [place], [address], 03/28/2023 16:31:08 Result Notes None recorded. Problems Name Problem SNOMED Code Status Onset Date Resolution Date Notes Provider Name and Address Organization Details Recorded Time Pain of right shoulder joint 42949771623036 100 Active 2021 Not Available [facility] 3 00:59:39 Fracture of phalanx of finger 79101256 Active 2021 Not Available [facility] 3 00:59:39 Pain of left hand 15782567619566 3 Active 2021 Not Available [facility] 3 00:59:39 Closed fracture of upper end of humerus 29466428 Active 2021 Not Available [facility] 3 00:59:40 Pain of right knee joint 62292008211536 0 Active 2022 NAPOLEON Wan, [facility] 3 12:25:42 Fracture of ankle 06588685 Active 2023 NAPOLEON Wan, [facility] 4 10:58:49 Closed fracture of right patella 76415250901474 100 Active 2023 MONA Red [address] [place] [address], [place] [address], [place], [address] , [facility] 4 11:35:53 Problem Notes None recorded. Procedures Surgical History Date Name Laterality Status Provider Name and Address Organization Details Recorded Time Breast Surgery completed Not Available [facility] 05/02/2022 00:58:24 procedure on hand completed Not Available [facility] 05/02/2022 00:58:24 Cataract Surgery completed Not Available [facility] 05/02/2022 00:58:24 Imaging Results Imaging Date Name Status LastModified by [facility] Details LastModified Time 06/06/2021 XR, hand completed [id number] 026 [facility] [place] [address], [place], [address], 05/02/2022 01:01:26 06/06/2021 XR, shoulder completed [id number] 30 026 [facility] [place] [address], [place], [address], 05/02/2022 01:01:26 06/20/2021 XR, humerus completed [id number] 30 026 [facility] [place] [address], [place], [address], 05/02/2022 01:01:26 07/27/2021 XR, shoulder completed [id number] 30 026 [facility] [place] [address], [place], [address], 05/02/2022 01:01:26 07/04/2021 XR, hand completed [id number] 30 026 [facility] [place] [address], [place], [address], 05/02/2022 01:01:26 07/04/2021 XR, shoulder completed [id number] 30 026 [facility] [place] [address], [place], [address], 05/02/2022 01:01:26 01/29/2023 XR, knee completed [email or web address] Information no t available 01/29/2023 16:59:15 03/07/2023 XR, knee completed [facility] [place] [address], [place], [address], 03/07/2023 12:18:44 03/28/2023 XR, knee completed [facility] [place] [address], [place], [address], 03/28/2023 16:31:08 Procedure Notes None recorded. Medical [...] Updated DateTime 07/04/2021 144.78 cm Not Available [facility] 3 00:58:55 Date Recorded Body height Provider Name an d Address Organization Details Last Updated DateTime 07/27/2021 144.78 cm Not Available [facility] 3 00:58:55 Date Recorded Body height Body mass index (BMI) Body weight Provider Name and Address Organization Details Last Updated DateTime 01/31/2023 144.78 cm 32.9 kg/m2 49181.04 g Krys Campos Mary Jo [facility] [employer] [facility] 01/31/2023 12:39:06 Date Recorded Body height Provider Name an d Address Organization Details Last Updated DateTime 03/07/2023 144.78 cm Krys Campos Mary Jo [facility] [employer] [facility] 03/07/2023 10:57:14 Date Recorded Body height Provider Name an d Address Organization Details Last Updated DateTime 03/28/2023 144.78 cm Michela Gardenia [facility] [employer] [facility] 03/28/2023 14:13:14 Social History Question Answer Notes LastModified by Organizat ion Details LastModified Time Tobacco Smoking Status Never Smoker Not Available [facility] 05/02/2022 00:58:03 What Is Your Level Of Alcohol Consumption? None [id number] Information not available 05/02/2022 Sex: Unknown Functional Status None recorded. Mental Status None recorded. Family History Relationship Description Onset Age of this Age Resolved Age Notes LastModified by Organization Details LastModified Time Father Hypertensive disorder [id number] Not available 05/02/2022 00:58:26 Father Diabetes mellitus [id number] Not available 05/02/2022 00:58:26 Mother Hypertensive disorder [id number] Not available 05/02/2022 00:58:26 Mother Diabetes mellitus [id number] Not available 05/02/2022 00:58:26 Medical History Condition Response BLINDNESS N KIDNEY STONES N CARPAL TUNNEL SYNDROME N MRSA N LUNG DISEASE/DISORDER N HISTORY OF DRUG ABUSE N RADIATION / CHEMOTHERAPY N COPD N ANKLE PAIN N SPORTS INJURY N BLOOD DISEASES N SCHIZOPHRENIA N SHINGLES N DEPRESSION (INCLUDING POST ) N SHOULDER PAIN N BOWEL PROBLEMS N STROKE/TIA N KNEE [...] HAVE YOU BEEN HOSPITALIZED OR SEEN IN [facility] IN THE PAST YEAR ? N [...] SNOMED-CT Code Diagnosis ICD10 Code Diagnosis Note [id number] [facility] [place] [address] [place] [address] 05/23/2021 00:00:00 05/27/2021 12:10:32 [id number] [facility] [place] [address] [place] [address] 06/06/2021 00:00:00 06/06/2021 14:59:59 [id number] [facility] [place] [address] [place] [address] 06/20/2021 00:00:00 06/20/2021 10:31:52 [id number] [facility] [place] [address] [place] [address] 07/04/2021 00:00:00 07/04/2021 17:33:55 [id number] [facility] [place] [address] [place] [address] 07/27/2021 00:00:00 07/30/2021 17:54:03 [id number] Christian Olsen MD [facility] [place] [address] [place] [address] 01/31/2023 12:01:28 02/03/2023 10:53:27 Pain of right knee joint 3581861116 65265 M25.533 [id number] MONA Red [facility] [place] [address] [place] [address] 03/07/2023 10:46:53 03/07/2023 12:21:50 Closed fracture of right patella 4831334012 [id number] S82.001A [id number] MONA Red [facility] [place] [address] [place] [address] 03/28/2023 14:03:48 03/28/2023 16:37:40 Pain of right knee joint 2351186685 36011 M25.561 Health Concerns Section Related Observation LastModified by Organization Detai ls LastModified Time None Recorded Concern Status LastModified by Organization Details LastModified Time None Recorded Advance Directives Directive None Recorded Payers Encounter Date Sequence Insurance Name Policy Number Policy Guerrero Covered Member ID Guerrero Member ID Guarantor Name 01/31/2023 1 [place] Elayne Salmeron [id number] Elayne Salmeron 01/31/2023 2 [employer] (MEDICARE SUPPLEMENT) Elayne Salmeron [id number] Elayne Salmeron 03/07/2023 1 [place] Elayne Salmeron [id number] Elayne Salmeron 03/07/2023 2 [employer] (MEDICARE SUPPLEMENT) Elayne Tamayoy [id number] Elayne Salmeron 03/28/2023 1 [place] Elayne Tamayoy [id number] Elayne Salmeron 03/28/2023 2 [employer] (MEDICARE SUPPLEMENT) Elayne Salmeron [id number] Elayne Salmeron Notes Date Note Type Note [...] with her son today. Christian Olsen MD [address] [place] [address], [facility] [[email or web address] [address], [place], [address], [place] [facility] 02/01/2023 14:32:04 OBGyn Episode No OBEpisode recorded.
--- OUTSIDE RECORDS SUMMARY | 2024-06-03 07:56 | XMS_ITS | Encounter Summary ---
Author Organization [facility] Address [address] [place] [address] Care Team Providers Care Fisher Pot Name Role Phone Non-Staff, Provider Primary Care Provider Luis troncoso Encounter Details Date Type Department Care Team (Late st Contact Info) Description 03/27/2024 [facility] Documentation [place] [address] [place] [address] Pema Kinsey MD [address] [place], [place] [address] Social History Tobacco Use Types Packs/Day Years Used Date Smoking Tobacco: Never Smokeless Tobacco: Never Alcohol Use Standard Drinks/Week Comments Not Currently 0 (1 standard drink = 0.6 oz pur e alcohol) Comments Unknown Sex and Gender Information Value Date Recorded Sex Assigned at Female 03/26/2024 8:00 AM SALAD COUNTER ATTENDANT Legal Sex Female 11:03 PM SALAD COUNTER ATTENDANT Gender Identity Not on file Sexual Orientation [...] on filedocumented in this encounter Care Teams Fisher Pot Relationship Specialty Start Date End Date Non-Staff, Provider PCP - General UNKNOWN PHYSICIAN SPECIALTY 12/25/23 documented as of this encounter
--- OUTSIDE RECORDS SUMMARY | 2024-06-03 07:56 | XMS_ITS ---
Author Organization [facility] Address [address] [place], [place] [id number] Care Team Providers Care Director Case Name Role Phone [facility]I GIBSON Unavailable [phone] Jonathon Nguyen Unavailable Unavailable BILL PEREZ Unavailable [phone] REASON FOR VISIT *General care Medications Medication SIG (Take, Route, Frequency, Duration) Notes Start Date End Date Status aspirin 81 MG Delayed Release Oral Tablet [[employer] Aspirin] ORAL aspirin 81 MG Delayed Release Oral Tablet [[employer] Aspirin]Original Medicationaspirin 81 MG Delayed Release Oral Tablet [[employer] Aspirin] *Reorder from [facility] for eRx and Interaction Alerts* 07/20/2012 Active chondroitin sulfates 250 MG Oral Capsule ORAL chondroitin sulfates 250 MG Oral CapsuleOriginal Medicationchondroitin sulfates 250 MG Oral Capsule *Reorder from [facility] for eRx and Interaction Alerts* 07/20/2012 Active Glucosamine Sulfate 500 MG Oral Tablet ORAL glucosamine sulfate 500 MG Oral TabletOriginal Medicationglucosamine sulfate 500 MG Oral Tablet *Reorder from [facility] for eRx and Interaction Alerts* 07/20/2012 Active Magnesium Gluconate 550 MG Oral Tablet ORAL magnesium gluconate 550 MG Oral TabletOriginal Medicationmagnesium gluconate 550 MG Oral Tablet *Reorder from [facility] for eRx and Interaction Alerts* 07/20/2012 Active Encounters Encounter Location Date Provider Diagnosis [address] [id number] 11/13/2023 BILL PEREZ Tinea unguium B35.1 ; Pain in right toe(s) M79.674 ; Pain in left toe(s) M79.675 ; Other hammer toe(s) (acquired), right foot M20.41 ; Other hammer toe(s) (acquired), left foot M20.42 ; Unspecified atherosclerosis of little traverse arteries of extremities, bilateral legs I70.203 and [...] (ICD-10 - M20.42) 11/13/2023 Unspecified atherosclerosis of little traverse arteries of extremities, bilateral legs (ICD-10 - [...] conservative options were emphasized. Unspecified atherosclerosis of little traverse arteries of extremities, bilateral legs Patient educated [...] CICI HUTCHINSON KDOB:[birth year] (78 yo F)Acc No.[id number]:11/13/2023 Patient: CICI DEAN Provider: Livan PEREZ :1945 A ge:78 Y S ex:Female Date:11/13/2023 Address:[address] [place] [address], [place] [address] Subjective: * Chief Complaints: * 1 . *General care. * HPI: H PI: General care P atient presents to the office for diabetic foot care. Patient states that their nails are thickened, elongated and painful. Patient states that it is aggravated by shoe gear. Onset is gradual., Patient denies taking blood thinners., Date last seen by Dr. Nguyen was 10/2023., Initials [facility]. * ROS: G eneral / Constitutional: Patient denies w eakness. R espiratory: Patient denies c hronic cough, shortness of breath, sputum production. C ardiovascular: Patient denies c hest pain, history of GA, irregular heartbeat. M usculoskeletal: Patient complains of [...] gluconate 550 MG Oral Tablet *Reorder from [facility] for eRx and Interaction Alerts*, Taking Glucosamine Sulfate 500 MG Oral Tablet ORAL , Notes to Pharmacist: glucosamine sulfate 500 MG Oral TabletOriginal Medicationglucosamine sulfate 500 MG Oral Tablet *Reorder from [facility] for eRx and Interaction Alerts*, Taking aspirin 81 MG Delayed Release Oral Tablet [[employer] Aspirin] ORAL , Notes to Pharmacist: aspirin 81 MG Delayed Release Oral Tablet [[employer] Aspirin]Original Medicationaspirin 81 MG Delayed Release Oral Tablet [[employer] Aspirin] *Reorder from [facility] [...] M20.42 6 . U nspecified atherosclerosis of little traverse arteries of extremities, bilateral legs - I70.203 [...] were emphasized. 3. U nspecified atherosclerosis of little traverse arteries of extremities, bilateral legs Notes: Patient [...] Information: * Visit Code: * Procedure Codes: 91789 DEBRIDE NAIL, 6 OR MORE. Modifiers: Q8 * Sign off status: Completed true * Provider: Livan PEREZ Date: 0 11/13/2023 Generated for Rigoberto smith/Adali/Sharon on: 0 06/03/2024 [...]
--- OUTSIDE RECORDS SUMMARY | 2024-06-03 07:57 | XMS_ITS | Clinical Summary ---
Author Organization [facility] Address [address] [place] [address] Care Team Providers Care Napkin Band Wrapper Name Role Phone Non-Staff, Provider Primary Care [...] - 05/20/2024 10:50 AM CDT Hospital Encounter [facility] [address] [place] [address] Judi Arreaga MD Discharge Disposition: Home or Self Care (Routine Discharge) 05/20/2024 Travel 05/20/2024 Hospital Orders Only [facility] [address] [place] [address] Judi Arreaga MD 03/27/2024 Misc Documentation [facility] [address] [place] [address] Judi Arreaga MD 03/26/2024 8:03 AM ZOOGLER - 03/26/2024 11:59 PM ZOOGLER Hospital Encounter [facility] [address] [place] [address] Judi Arreaga MD Discharge Disposition: Home or Self Care (Routine Discharge) 03/26/2024 8:02 AM ZOOGLER Hospital Encounter [facility] [address] [place] [address] Dawson Linton MD Discharge Disposition: Home or Self Care (Routine Discharge) 03/26/2024 Travel 03/19/2024 Pre-Procedure Call [facility] Interventional Radiology [address] [place] [address] Randee Alas RN Preprocedure Call (Spoke with Dr. Nguyen's office and they will fax over signed office notes from 03/16/24 appt) 03/19/2024 Telephone [facility] Interventional Radiology [address] [place] [address] Katlyn Thurman RN Preprocedure Call (Son called to see if patient can have bone marrow biopsy appt earlier in the morning. Appt moved to 0830 lab, 0900 hold time and 1000 procedure. Son aware of changed time, npo at midnight and will need yard driver for the way home. Son stated patient has been seen by Dr. Nguyen in [place] on 03/16. ) from Last 3 Months Social History Tobacco Use Types Packs/Day Years Used Date Smoking Tobacco: Never Smokeless Tobacco: Never Tobacco Cessation:Counseling Given: Not Answered Alcohol Use Standard Drinks/Week Comments Not Currently 0 (1 standard drink = 0.6 oz pur e alcohol) Comments Unknown Sex and Gender Information Value Date Recorded Sex Assigned at Female 03/26/2024 8:00 AM ZOOGLER Legal Sex Female 11:03 PM ZOOGLER Gender Identity Not on file Sexual Orientation Not on file Last Filed Vital Signs Vital Sign Reading Time Taken Comments Blood Pressure 137/48 03/26/2024 1:05 PM ZOOGLER Pulse 65 03/26/2024 1:05 PM ZOOGLER Temperature 35.7 C (96.3 F) 12/26/2023 9:21 AM CDT Respiratory Rate 24 03/26/2024 1:05 PM ZOOGLER Oxygen Saturation 94% 03/26/2024 1:18 PM ZOOGLER Inhaled Oxygen Concentration - - Weight 68 kg (150 lb) 03/26/2024 9:21 AM ZOOGLER Height 149.9 cm (4' 11 ) 03/26/2024 9:21 AM ZOOGLER Body Mass Index 30.3 03/26/2024 9:21 AM ZOOGLER Plan of Treatment Health Maintenance Due Date [...] CHEST+ABD+PEL W CON Routine 03/26/2024 12:20 PM ZOOGLER Lymphoma, small lymphocytic ([facility] CT GD ASPIR+BX BONE MARROW Routine 03/26/2024 12:15 PM ZOOGLER Lymphoma, small lymphocytic (CMS/HCC HHS/HCC) CREATININE WHOLE BLOOD Routine 03/26/2024 12:15 PM ZOOGLER FLOW CYTOMETRY Routine 03/26/2024 11:55 AM ZOOGLER CHROMOSOME ANALYSIS HEMATOLOGIC MALIGNANCY Routine 03/26/2024 11:55 AM ZOOGLER XR CHEST PA OR AP 1V STAT 03/26/2024 10:47 AM ZOOGLER Lymphoma, small lymphocytic (CMS/HCC HHS/HCC) TYPE & SCREEN STAT 03/26/2024 9:58 AM ZOOGLER Lymphoma, small lymphocytic (CMS/HCC HHS/HCC) CBC W/DIFF AUTOMATED Routine 03/26/2024 8:28 AM ZOOGLER Lymphoma, small lymphocytic (CMS/HCC HHS/HCC) PROTHROMBIN TIME, VENOUS Routine 03/26/2024 8:28 AM ZOOGLER Lymphoma, small lymphocytic (CMS/HCC HHS/HCC) PATHOLOGY Routine 03/26/2024 12:00 AM ZOOGLER from Last 3 Months Results * CT CHEST+ABD+PEL W CON (03/26/2024 12:20 PM ZOOGLER) Anatomical Region Laterality Modality Chest, Abdomen, Pelvis Computed Tomography 04/04/2024 9:43 AM ZOOGLER Impressions 04/04/2024 10:02 AM ZOOGLER Impression: 1. Mediastinal and hilar lymphadenopathy as [...] 04/04/2024 9:43 AM Narrative 04/04/2024 10:02 AM ZOOGLER [place] [address] Examination: CT chest, abdomen and pelvis with [...] Procedure Note Rei Gaines MD - 04/04/[address] [address] Examination: CT chest, abdomen and pelvis with [...] left and trace right pleural effusions. Irregular jtlrfolfdawimo-rx-iuh opacities are present within both lungs, most [...] GD ASPIR+BX BONE MARROW (03/26/2024 12:15 PM ZOOGLER) Anatomical Region Laterality Modality Bone Computed Tomogra phy, Radiographic Imaging 03/26/2024 4:31 PM ZOOGLER Impressions 03/26/2024 5:05 PM ZOOGLER IMPRESSION: CT-guided percutaneous bone marrow biopsy, as described. The attending radiologist, Dr. Webber, was in the department for all critical portions of the procedure, has reviewed the images, and agrees with the content of this report. Dictated By: MONA Eric on 03/26/2024 4:31 PM Ordered By: JUDI ARREAGA Interpreted By: MONA Eric, 03/26/2024 4:31 PM Narrative 03/26/2024 5:05 PM ZOOGLER [address] [address] PROCEDURE: CT-guided bone marrow aspiration and biopsy DATE OF PROCEDURE: 03/26/2024 11:45 AM INDICATION: History of CLL. Primary provider: Mik Kim PA-C Supervising provider: Jamshid Webber M.D. Conscious sedation: Administered and monitored by a qualified interventional radiology nurse under supervision of the interventional physician vet assistant. There was continuous monitoring of vital signs including pulse oximetry, end-tidal CO2, and EKG. Total intraservice or vycy-pm-yzos sedation time: 5 minutes. TECHNIQUE AND FINDINGS: Informed written consent was obtained. The patient was then brought to the CT scanner suite, placed in the prone position, and [place] protocol was observed to verify correct patient, [...] The needle was then connected to an [employer] motorized device to penetrate the cortex. At [...] Procedure Note Jamshid Webber MD - 03/26/[address] [address] PROCEDURE: CT-guided bone marrow aspiration and biopsy DATE OF PROCEDURE: 03/26/2024 11:45 AM INDICATION: History of CLL. Primary provider: Mik Kim PA-C Supervising provider: Jamshid Webber M.D. Conscious sedation: Administered and monitored by a qualifiedinterventional radiology nurse under supervision of the interventionalphysician vet assistant. There was continuous monitoring of vital signsincluding pulse oximetry, end-tidal CO2, and EKG. Total intraservice yfpbjj-ir-itcu sedation time: 5 minutes. TECHNIQUE AND FINDINGS: Informed written consent was obtained. The patient was then brought to theCT scanner suite, placed in the prone position, and [place] protocol wasobserved to verify correct patient, site, [...] visualization. The needle was then connected to [employer] motorized device to penetrate the cortex. At [...] (ABNORMAL) CREATININE WHOLE BLOOD (03/26/2024 12:15 PM ZOOGLER) CREATININE WHOLE BLOOD 0.9 0.6 - 1.3 mg/dL 03/26/2024 12:24 PM ZOOGLER [facility] GFR ESTIMATE 65(L) >90 ML/MIN/1. 73 M2 03/26/2024 12:24 PM ZOOGLER [facility] GFR NOTES GFR REFERENCE S: 03/26/2024 12:24 PM ZOOGLER [facility] Comment: THE ESTIMATED GFR [...] TEST WAS PERFORMED: 1215 03/26/2024 12:24 PM ZOOGLER [facility] 03/26/2024 12:1 5 PM ZOOGLER Dawson Linton MD LABORATORY Final Result [facility] [address] [place] [address], [phone] * Flow Cytometry (03/26/2024 11:55 AM ZOOGLER) FLOW CYTOMETRY RESULTS [facility] Department of Laboratory Medicine [address] [place] [address] , extension [phone] Pathology Report Flow Cytometry Report Name: CICI HUTCHINSON Specimen #: [id number] Age: 2 1945 (Age: 78) Location: [facility] Sex: F Procedure Date: 03/26/2024 Hospital #: [id number] Date Received: 03/26/2024 Date Reported: 04/08/2024 Provider: [...] cells. Result: Tested: CD45, CD19, CD20, Surface [place], Surface Lambda, CD5, CD10, CD38, CD34, CD14, [...] developed and its performance characteristics determined by [facility]. It has not been cleared or approved by the U.S. Food and Drug Administration. However, the use of Analyte Specific Reagents does not require FDA approval. [facility] 03/26/2024 11:5 5 AM ZOOGLER 03/26/2024 12:15 PM ZOOGLER Comment:Bone marrow aspirati on (See report [id number]) us Judi Arreaga MD PATHOLOGY/CYTOLOGY OR DERABLES Final Result [facility] [address] [place] [address], [place] [phone] * CHROMOSOME ANALYSIS HEMATOLOGIC MALIGNANCY (03/26/2024 11:55 AM ZOOGLER) SPECIMEN SOURCE BONE MARROW NA AHEP 03/26/2024 3:11 PM ZOOGLER [facility] CLINICAL INDICATION LYMPHOMA 03/26/2024 3:11 PM ZOOGLER [facility] PRIOR THERAPY/TRANSPLANT UNK 03/26/2024 3:11 PM ZOOGLER [facility] PHYSICIAN PHONE [phone] 3:11 PM ZOOGLER [facility] Comment: [phone] CLIENT PHONE [phone] 03/26/2024 3:11 PM ZOOGLER [facility] Comment: [phone] CHROMOSOME BLOOD REPORT 04/01/19 2:52 PM ZOOGLER [facility] FREDDIEGUSTAVO VELAZQUEZ Comment: Order ID: [id number] Specimen Type: Bone Marrow Clinical Indication: Lymphoma [...] 47,XX,+12[14]/46,XX[6] ASSAY INFORMATION: Method: G-Band (Digital Analysis: [employer]) Cells Counted: 20 Band Level: 400 Cells Analyzed: 20 Cells Karyotyped: 4 Small clonal populations and subtle chromosome abnormalities may not be identified. Irish Brannon, Ph.D., [facility], Certified Flex Endoscope Reprocessor, Cytogenetics and Genomics, Electronic Signature: 04/01/2024 3:08 PM For more information on this test, go to [email or web address].[email or web address]/faq/Ca-chromosome Test Performed by [employer], [employer] [facility], [address] [place] [address] Mike Santana M.D., Ph.D., Director of Laboratories , [place] [id number] 03/26/2024 11:5 5 AM ZOOGLER Judi Arreaga MD LABORATORY Final Result [facility] [facility] [address] [place], [place] , [place] [phone] [facility] [address] [place] [address], [place] [phone] * XR CHEST PA OR AP 1V (03/26/2024 10:47 AM ZOOGLER) Anatomical Region Laterality Modality Chest Radiographic Fidelia ging 03/26/2024 11:0 4 AM ZOOGLER Impressions 03/26/2024 11:14 AM ZOOGLER IMPRESSION: Cardiomegaly with probable pulmonary congestion/mild interstitial CHF.Patchy opacity in the left midlung laterally which could represent pneumonia. Recommend correlation with any recent outside films if possible. Ordered By: JAMSHID WEBBER Interpreted By: Jamshid Webber MD, 03/26/2024 11:04 AM Narrative 03/26/2024 11:14 AM ZOOGLER [place] [address] EXAM DESCRIPTION: Chest 1 view EXAM TIME : 03/26/2024 10:44 AM INDICATION: Shortness of breath. History of CLL. Patient apparently has history of ELIER. COMPARISON FILM : CTA chest 08/23/2016. TECHNIQUE: Chest- 1 - view, 1 - images FINDINGS: Upright AP film obtained. Interval removal of previously present Ksvmqh-p-Genc. Mild cardiomegaly. Calcified aortic knob. Central pulmonary congestion with interstitial changes suggestive of CHF. In addition there is patchy groundglass opacity in the left midlung laterally which could represent pneumonia. Lungs questionable very minimal blunting left costophrenic angle, no significant size effusions. No pneumothorax. No acute bony abnormality. Procedure Note Jamshid Webber MD - 03/26/2024 [facility] [address] [place], [place] [address] EXAM DESCRIPTION: Chest 1 view EXAM TIME : 03/26/2024 10:44 AM INDICATION: Shortness of breath. History of CLL. Patient apparently hashistory of ELIER. COMPARISON FILM : CTA chest 08/23/2016. TECHNIQUE: Chest- 1 - view, 1 - images FINDINGS: Upright AP film obtained. Interval removal of previously eirbcigEbhpqr-a-Zceg. Mild cardiomegaly. Calcified aortic knob. Centralpulmonary congestion [...] * TYPE & SCREEN (03/26/2024 9:58 AM ZOOGLER) UNITS ORDERED 1 03/26/2024 10:20 AM ZOOGLER [facility] ABO/RH A POSITIVE 03/26/2024 10:54 AM ZOOGLER [facility] ANTIBODY SCREEN NEGATIVE 03/26/2024 10:54 AM ZOOGLER [facility] SAMPLE EXPIRATION 03/29/2024,2 359 03/26/2024 10:09 AM ZOOGLER [facility] 03/26/2024 9:58 AM ZOOGLER Mik Kim PA-C BLOOD BANK TEST ORDERABLES Final Result Performing Organization Address [facility] de Phone Number [facility] [address] [place] [address], [phone] * (ABNORMAL) PROTIME/INR, VENOUS (PROTHROMBIN TIME) (03/26/2024 8:28 AM ZOOGLER) PROTIME 14.3(H) 9.4 - 12.5 SEC 03/26/2024 9:06 AM ZOOGLER [facility] INR 1.2(H) 0.8 - 1.1 03/26/2024 9:06 AM ZOOGLER [facility] 03/26/2024 8:28 AM ZOOGLER Dawson Linton MD LABORATORY Final Result Performing Organization Address [facility] de Phone Number [facility] [address] [place] [address], [phone] * (ABNORMAL) CBC W/DIFF AUTOMATED (03/26/2024 8:28 AM ZOOGLER) WBC 6.16 4.00 - 10.80 x10'3/uL 03/26/2024 9:26 AM ZOOGLER [facility] RBC 2.39(L) 4.10 - 5.40 x10'6/uL 03/26/2024 9:26 AM ZOOGLER [facility] HGB 6.7(LL) 12.0 - 16.0 G/DL 03/26/2024 9:26 AM ZOOGLER [facility] Comment: This result has been called to [id number] [place] RADIOLOGY by [id number] on 03/26/2024 09:24:23, and has been read back. HCT 21.8(L) 36.0 - 47.0 % 03/26/2024 9:26 AM [facility] MCV 91.2 78.0 - 100.0 FL 03/26/2024 9:26 AM [facility] MCH 28.0 27.0 - 31.0 PG 03/26/2024 9:26 AM [facility] MCHC 30.7(L) 33.0 - 36.0 G/DL 03/26/2024 9:26 AM [facility] RDW 17.1(H) 11.5 - 14.5 % 03/26/2024 9:26 AM [facility] PLT 48(L) 150 - 350 x10'3/uL 03/26/2024 9:26 AM [facility] MPV 10.8(H) 7.4 - 10.4 FL 03/26/2024 9:26 AM [facility] DIFFERENTIAL TYPE MANUAL DIFFERENTIAL 03/26/2024 9:29 AM [facility] NRBC % 0.0 % 03/26/2024 9:29 AM [facility] SEG NEUTROPHILS 70 % 9:29 AM [facility] LYMPHOCYTES 22 % 03/26/2024 9:29 AM [facility] MONOCYTES 4 % 03/26/2024 9:29 AM [facility] EOSINOPHILS 3 % 03/26/2024 9:29 AM [facility] BASOPHILS 1 % 03/26/2024 9:29 AM [facility] ABS. NEUTROPHILS 4.31 1.60 - 8.30 x10'3/uL 03/26/2024 9:29 AM [facility] ABS. LYMPHOCYTES 1.36 0.80 - 4.70 x10'3/uL 03/26/2024 9:29 AM [facility] ABS. MONOCYTES 0.25 0.00 - 1.50 x10'3/uL 03/26/2024 9:29 AM ZOOGLER [facility] ABS. EOSINOPHILS 0.18 0.00 - 0.40 x10'3/uL 03/26/2024 9:29 AM ZOOGLER [facility] ABS. BASOPHILS 0.06 0.00 - 0.20 x10'3/uL 03/26/2024 9:29 AM [facility] ABS. NUCLEATED RBC'S 0.00 0.00 - 0.01 x10'3/uL 03/26/2024 9:29 AM ZOOGLER [facility] RBC MORPHOLOGY SLIDE REVIEWED 2024 9:29 AM ZOOGLER [facility] ANISO SLIGHT 03/26/2024 9:29 AM ZOOGLER [facility] POIKLO SLIGHT 03/26/2024 9:29 AM [facility] HYPOCHROMASIA SLIGHT 03/26/2024 9:29 AM [facility] OVALOCYTES PRESENT 03/26/2024 9:29 AM [facility] TEAR DROP PRESENT 03/26/2024 9:29 AM ZOOGLER [facility] PLT EST. DECREASED 03/26/2024 9:29 AM [facility] 03/26/2024 8:28 AM ZOOGLER Dawson Linton MD LABORATORY Final Result Performing Organization Address City/State/[facility] Co de Phone Number [facility] [address] [place] [phone], [phone] * Pathology (03/26/2024 12:00 AM ZOOGLER) PATHOLOGY [facility] Department of Laboratory Medicine [address] [place] [address] , extension [phone] Pathology Report Addendum Bone Marrow Report Name: CICI HUTCHINSON Specimen #: [id number] Age: 2 1945 (Age: 78) Location: [facility] Sex: F Procedure Date: 03/26/2024 [facility] #: [id number] Date Received: 03/26/2024 Date Reported: / Provider: [...] finding in the marrow at the [facility], see their report [id number]. There is no evidence of transformation in [...] with the guidelines of the [employer] for the report of cancer specimens. [...] Gross examination (when applicable) was performed at [facility], [address] [facility], [place] [address]. This case was interpreted and signed out at [facility], [address] [place] [address]. All immunohistochemical and histochemical tests were developed by and performed at [facility], [address] [place] [address]. All tests reported here have not been [...] Addendum Comment Routine cytogenetics is performed at [facility]. 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 Trisomy 12 is a recurrent abnormality in chronic/small lymphocytic lymphoma. In CLL/SLL trisomy 12 is often associated with atypical immunophenotype and lymphocyte morphology. These findings correspond with the bone marrow biopsy results of CLL/SLL. [facility] 03/26/2024 03/26/2024 1:3 0 PM ZOOGLER Comment:Bone marrow aspirati on right iliac&Bone marrow biopsy right iliac Judi Arreaga MD PATHOLOGY/CYTOLOGY OR DERABLES Final Result [facility] [address] [place] [address], [phone] from Last 3 Months Insurance [employer] Care Teams Napkin Band Wrapper Relationship Specialty Start Date End Date Non-Staff, Provider PCP - General UNKNOWN PHYSICIAN SPECIALTY 12/25/23
--- OUTSIDE RECORDS SUMMARY | 2024-06-03 07:57 | XMS_ITS | Encounter Summary ---
Author Organization [facility] Address [facility] [place] [address] Care Team Providers Care Traffic Clerk Name Role Phone Non-Staff, Provider Primary Care Provider Luis troncoso Reason for Visit * Reason Onset Date Comments Preprocedure Call 03/19/[address] Nguyen's office and they will fax over signed office notes from 03/16/24 appt Encounter Details Date Type Department Care Team (Latest Contact Info) Description 03/19/2024 Pre-Procedure Call [facility] Interventional Radiology [address] [place] [address] Randee Alas RN Preprocedure Call (Spoke with [...] Sex Assigned at Female 03/26/2024 8:00 AM POLY OPERATOR Legal Sex Female 11:03 PM POLY OPERATOR Gender Identity Not on file Sexual [...] on filedocumented in this encounter Care Teams Traffic Clerk Relationship Specialty Start Date End Date Non-Staff, Provider PCP - General UNKNOWN PHYSICIAN SPECIALTY 12/25/23 documented as of this encounter
[2024-06-03 08:00] VITALS: BP 142/60; PULSE 56; RESP 16; TEMP 36.4; O2SAT 96; BMI 27.6
[2024-06-03 08:12] LABS: Immature Platelet Fraction Pct 2.7 % (1.0-7.0); Mean Corpuscular HGB Conc 32.1 g/dL (32-36); Mean Corpuscular Volume 87.2 fL (78.0-102.0); Mean Platelet Volume 10.1 fl (9.2-11.8); Platelet Count Result 69 K/mm3 (150-420); Red Blood Count 3.21 M/mm3 (4.20-5.40); Red Cell Distribution Width 19.2 % (11.6-14.4); White Blood Count 10.7 K/mm3 (4.8-10.8)
[2024-06-03 08:24] LABS: Alanine Aminotransferase 21 U/L (14-59); Albumin Level 3.2 g/dL (3.4-5.0); Alkaline Phosphatase 90 U/L (46-116); Anion Gap 10 mmol/L (4-12); Aspartate Amino Transferase 16 U/L (15-37); Bilirubin,Total 1.1 mg/dL (0.00-1.00); Blood Urea Nitrogen 29 mg/dL (7-18); Calcium 8.9 mg/dL (8.5-10.1); Carbon Dioxide 26 mmol/L (21-32); Chloride 94 mmol/L (98-108); Estimated Glomerular Filt Rate 39; Glucose 399 mg/dL (70-99); Osmolality Calculated 292 mOsm/kg (285-295); Potassium 3.8 mmol/L (3.5-5.1); Sodium 130 mmol/L (136-145)
[2024-06-03] MEDS: dexAMETHasone SOD PHOS INJ 4 MG/ML VIAL 12 MG IV PUSH (08:26)
[2024-06-03] MEDS: ACETAMINOPHEN 325 MG TABLET 650 MG PO (08:26)
[2024-06-03] MEDS: SODIUM CHLORIDE 0.9% IV 250 ML 10 ML IVPB (08:26)
[2024-06-03] MEDS: FAMOTIDINE 20 MG/2 ML VIAL IV PUSH (08:28)
[2024-06-03] MEDS: diphenhydrAMINE HCl INJ 50 MG/ML VIAL 25 MG IV PUSH (08:30)
[2024-06-03 08:35] LABS: Band Neutrophils Percent 0 % (0-6); Basophils Percent Manual 0 % (0-1); Eosinophils Percent Manual 0 % (1-6); Lymphocytes Absolute Manual 0.85 K/mm3 (1.1-4.5); Lymphocytes Percent Manual 8 % (18-44); Monocytes Absolute Manual 0.53 K/mm3 (0.1-0.90); Monocytes Percent Manual 5 % (3-9); Neutrophils Percent Manual 87 % (46-73); Schistocytes None Seen; Total Cells Counted 100
[2024-06-03 08:36] LABS: Platelet Estimate Decreased (Adequate)
[2024-06-03] MEDS: RITUXIMAB PVVR IVPB (09:00)
[2024-06-03] MEDS: SODIUM CHLORIDE 0.9% IVPB (09:00)
[2024-06-03 09:30] VITALS: BP 132/59; PULSE 60; RESP 14; TEMP 36.4; O2SAT 96
[2024-06-03 12:00] VITALS: BP 129/60; PULSE 60; RESP 16; TEMP 36.6; O2SAT 96
[2024-06-03] MEDS: HEPARIN SODIUM LOCK FLUSH 500 UNITS/5 ML SYRINGE IV PUSH (12:15)
--- NOTE | 2024-06-03 13:42 | PC.NURSE ---
Patient tolerated Rituximab infusion well. SEE MAR/patient care notes.
== END 2024-06-03 07:47 | disposition home or self-care (01) ==
PROVIDERS: PCP Internal Medicine; Visit Provider Internal Medicine Hematology
DX: Z51.11 Encounter for antineoplastic chemotherapy (principal); C91.10 Chronic lymphocytic leukemia of B-cell type not having achieved remission
CPT/HCPCS: 36415; 36591; 80053; 85025; 85055; 86850; 86880; 86900; 86901; 86902; 96375; 96413; 96415; A9270; J1100; J1200; J7040; J7050; Q5119

== ENCOUNTER 2024-06-21 11:14 | Outpatient (CLI) | payer MEDICARE, SELFPAY ==
[2024-06-21 11:50] VITALS: BP 108/56; PULSE 64; RESP 14; TEMP 36.6; O2SAT 98; BMI 13.6
[2024-06-21] MEDS: HEPARIN SODIUM LOCK FLUSH 500 UNITS/5 ML SYRINGE IV PUSH (11:55)
--- OUTSIDE RECORDS SUMMARY | 2024-06-21 13:08 | XMS_ITS ---
Author Organization [facility] Address [address] [place], [place] [id number] Care Team Providers Care Public Affairs Specialist Name Role Phone CHI GIBSON Unavailable [phone] Jonathon Nguyen Unavailable Unavailable REASON FOR VISIT *General care Encounters Encounter Location Date Provider Diagnosis [address] [id number] 04/22/2024 [facility]I GIBSON Plan Of Treatment No Information Progress Notes * CICI HUTCHINSON KDOB:[birth year] (79 yo F)Acc No.[id number]:04/22/2024 Patient: MARIA ELENA DEANLIAndres Mar Provider: Andres Gibson DPM :1945 A ge:78 Y S ex:Female Date:04/22/2024 Address:[address] [place] [address], [id number] Subjective: * Chief Complaints: * 1 . *General care. * Medical History: Objective: * Vitals: Assessment: Plan: * Treatment: * Billing Information: * Visit Code: * Procedure Codes: * Electronic signature of CHI GIBSON DPM on 06/21/2024 at 01:08 PM CDT Sign off status: Pending * Provider: Andres Gibson DPM Date: 04/22/2024 Generated for Printi ng/Faxing/eTransmitting on: 0 06/21/2024 01:08 PM CDT
--- OUTSIDE RECORDS SUMMARY | 2024-06-21 13:08 | XMS_ITS | Encounter Summary ---
Author Organization [facility] Address [address] [place] [address] Care Team Providers Care Welfare Administrator Name Role Phone Non-Staff, Provider Primary Care Provider Luis troncoso Encounter Details Date Type Department Care Team (Late st Contact Info) Description 05/20/2024 Hospital Orders Only [facility] [address] [facility] [place] [address] Pema Kinsey MD [address] [place] [address] Social History Tobacco Use Types Packs/Day Years Used Date Smoking Tobacco: Never Smokeless Tobacco: Never Alcohol Use Standard Drinks/Week Comments Not Currently 0 (1 standard drink = 0.6 oz pur e alcohol) Comments Unknown Sex and Gender Information Value Date Recorded Sex Assigned at Female 03/26/2024 8:00 AM EMISSIONS TESTING TECHNICIAN Legal Sex Female 11:03 PM EMISSIONS TESTING TECHNICIAN Gender Identity Not on file Sexual Orientation [...] on filedocumented in this encounter Care Teams Welfare Administrator Relationship Specialty Start Date End Date Non-Staff, Provider PCP - General UNKNOWN PHYSICIAN SPECIALTY 12/25/23 documented as of this encounter
--- OUTSIDE RECORDS SUMMARY | 2024-06-21 13:08 | XMS_ITS | Patient Health Record ---
Author Organization [facility] Address [address] [place], [place] [id number] Care Team Providers Care Application Security Consultant Name Role Phone CHI GIBSON Unavailable [phone] Jonathon Nguyen Unavailable Unavailable BILL PEREZ Unavailable [phone] Allergies No Known Allergies Reason For Referral No Information Medications Medication SIG (Take, Route, Frequency, Duration) Notes Start Date End Date Status chondroitin sulfates 250 MG Oral Capsule ORAL chondroitin sulfates 250 MG Oral CapsuleOriginal Medicationchondroitin sulfates 250 MG Oral Capsule *Reorder from [employer] for eRx and Interaction Alerts* 07/20/2012 Active aspirin 81 MG Delayed Release Oral Tablet [[employer]EL[employer] Bio Aspirin] ORAL aspirin 81 MG Delayed Release Oral Tablet [[employer] Bio Aspirin]Original Medicationaspirin 81 MG Delayed Release Oral Tablet [[employer] Bio Aspirin] *Reorder from [employer] for eRx and Interaction Alerts* 07/20/2012 Active Glucosamine Sulfate 500 MG Oral Tablet ORAL glucosamine sulfate 500 MG Oral TabletOriginal Medicationglucosamine sulfate 500 MG Oral Tablet *Reorder from [employer] for eRx and Interaction Alerts* 07/20/2012 Active Magnesium Gluconate 550 MG Oral Tablet ORAL magnesium gluconate 550 MG Oral TabletOriginal Medicationmagnesium gluconate 550 MG Oral Tablet *Reorder from [employer] for eRx and Interaction Alerts* 07/20/2012 Active Immunizations Vaccine Route Administration Date Status Comme nts Influenza, high dose seasonal Unknown 12/19/2022 Admini stered Vital Signs Height-cm 149.86 cm 07/10/2023 Weight-kg 69.85 kg 07/10/2023 Height 59.00 in 07/10/2023 Weight 154 lbs 07/10/2023 BMI 31.1 kg/m2 07/10/2023 Encounters Encounter Location Date Provider Diagnosis [address] [id number] 07/10/2023 BILL PEREZ Tinea unguium B35.1 ; Pain in right toe(s) M79.674 ; Pain in left toe(s) M79.675 ; Other hammer toe(s) (acquired), right foot M20.41 ; Other hammer toe(s) (acquired), left foot M20.42 ; Unspecified atherosclerosis of [place] arteries of extremities, bilateral legs I70.203 and Type 2 diabetes mellitus with other circulatory complications E11.[address] [id number] 09/11/2023 BILL PEREZ Tinea unguium B35.1 ; Pain in right toe(s) M79.674 ; Pain in left toe(s) M79.675 ; Other hammer toe(s) (acquired), right foot M20.41 ; Other hammer toe(s) (acquired), left foot M20.42 ; Unspecified atherosclerosis of [place] arteries of extremities, bilateral legs I70.203 and Type 2 diabetes mellitus with other circulatory complications E11.[address] [id number] 11/13/2023 BILL PEREZ Tinea unguium B35.1 ; Pain in right toe(s) M79.674 ; Pain in left toe(s) M79.675 ; Other hammer toe(s) (acquired), right foot M20.41 ; Other hammer toe(s) (acquired), left foot M20.42 ; Unspecified atherosclerosis of [place] arteries of extremities, bilateral legs I70.203 and Type 2 diabetes mellitus with other circulatory complications E11.59 [address] [place], [place] [id number] 01/22/2024 BILL PEREZ Tinea unguium B35.1 ; Pain in right toe(s) M79.674 ; Pain in left toe(s) M79.675 ; Other hammer toe(s) (acquired), right foot M20.41 ; Other hammer toe(s) (acquired), left foot M20.42 ; Unspecified atherosclerosis of [place] arteries of extremities, bilateral legs I70.203 and [...] (ICD-10 - M20.42) 07/10/2023 Unspecified atherosclerosis of [place] arteries of extremities, 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) Patient educated on risks and aggravating factors of PVD, including conservative treatment options such as a diet and exercise regimen to aid in slowing progression of vascular disease 09/11/2023 Unspecified atherosclerosis of [place] arteries of extremities, 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) Patient educated on risks and aggravating factors of PVD, including conservative treatment options such as a diet and exercise regimen to aid in slowing progression of vascular disease 11/13/2023 Unspecified atherosclerosis of [place] arteries of extremities, 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) Patient educated on risks and aggravating factors of PVD, including conservative treatment options such as a diet and exercise regimen to aid in slowing progression of vascular disease 01/22/2024 Unspecified atherosclerosis of [place] arteries of extremities, bilateral legs (ICD-10 - [...] Date Coverage End Date Medicare Part B [place] [address] [place] [address] [id number] CICI HUTCHINSON Self - patient is the insured [employer] [address] [address] [place] [id number] CICI HUTCHINSON Self - patient is the insured
--- OUTSIDE RECORDS SUMMARY | 2024-06-21 13:08 | XMS_ITS | Encounter Summary ---
Author Organization [facility] Address [facility] [place] [address] Care Team Providers Care Dampener Operator Name Role Phone Non-Staff, Provider Primary Care Provider Luis troncoso Encounter Details Date Type Department Care Team (Late st Contact Info) Description 03/27/2024 [facility] [place] [address] [place] [address] Pema Kinsey MD [address] [place], [place] [address] Social History Tobacco Use Types Packs/Day Years Used Date Smoking Tobacco: Never Smokeless Tobacco: Never Alcohol Use Standard Drinks/Week Comments Not Currently 0 (1 standard drink = 0.6 oz pur e alcohol) Comments Unknown Sex and Gender Information Value Date Recorded Sex Assigned at Female 03/26/2024 8:00 AM 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
--- OUTSIDE RECORDS SUMMARY | 2024-06-21 13:09 | XMS_ITS | Encounter Summary ---
Author Organization [facility] Address [facility] [place] [address] Care Team Providers Care Dice Person Name Role Phone Non-Staff, Provider Primary Care Provider Luis troncoso Reason for Visit * Reason Onset Date Comments Preprocedure Call 03/19/[address] Nguyen's office and they will fax over signed office notes from 03/16/24 appt Encounter Details Date Type Department Care Team (Latest Contact Info) Description 03/19/2024 Pre-Procedure Call [facility] Interventional Radiology [address] [place] [address] Randee Alas RN Preprocedure Call (Spoke with [...] Sex Assigned at Female 03/26/2024 8:00 AM EMBEDDED NURSE Legal Sex Female 11:03 PM EMBEDDED NURSE Gender Identity Not on file Sexual [...] on filedocumented in this encounter Care Teams Dice Person Relationship Specialty Start Date End Date Non-Staff, Provider PCP - General UNKNOWN PHYSICIAN SPECIALTY 12/25/23 documented as of this encounter
--- OUTSIDE RECORDS SUMMARY | 2024-06-21 13:09 | XMS_ITS | Clinical Summary ---
Author Organization [facility] Address [address] [place] [address] Care Team Providers Care Automatic Lathe Tender Name Role Phone Non-Staff, Provider Primary [...] - 05/20/2024 10:50 AM CDT Hospital En[facility] [address] [place] [address] Judi Arreaga MD Discharge Disposition: Home or Self Care (Routine Discharge) 05/20/2024 Travel 05/20/2024 Hospital Orders Only [facility] [address] [place] [address] Judi Arreaga MD 03/27/2024 Misc Documentation [facility] [address] [place] [address] Judi Arreaga MD 03/26/2024 8:03 AM DISPATCH SPECIALIST - 03/26/2024 11:59 PM DISPATCH SPECIALIST Hospital Encounter [facility] [address] [place] [address] Judi Arreaga MD Discharge Disposition: Home or Self Care (Routine Discharge) 03/26/2024 8:02 AM DISPATCH SPECIALIST Hospital Encounter [facility] [address] [place] [address] Dawson Linton MD Discharge Disposition: Home or Self Care (Routine Discharge) 03/26/2024 Travel from Last 3 Months Social History Tobacco Use Types Packs/Day Years Used Date Smoking Tobacco: Never Smokeless Tobacco: Never Tobacco Cessation:Counseling Given: Not Answered Alcohol Use Standard Drinks/Week Comments Not Currently 0 (1 standard drink = 0.6 oz pur e alcohol) Comments Unknown Sex and Gender Information Value Date Recorded Sex Assigned at Female 03/26/2024 8:00 AM DISPATCH SPECIALIST Legal Sex Female 11:03 PM DISPATCH SPECIALIST Gender Identity Not on file Sexual Orientation Not on file Last Filed Vital Signs Vital Sign Reading Time Taken Comments Blood Pressure 137/48 03/26/2024 1:05 PM DISPATCH SPECIALIST Pulse 65 03/26/2024 1:05 PM DISPATCH SPECIALIST Temperature 35.7 C (96.3 F) 12/26/2023 9:21 AM CDT Respiratory Rate 03/26/2024 1:05 PM DISPATCH SPECIALIST Oxygen Saturation 94% 03/26/2024 1:18 PM DISPATCH SPECIALIST Inhaled Oxygen Concentration - - Weight 68 kg (150 lb) 03/26/2024 9:21 AM DISPATCH SPECIALIST Height 149.9 cm (4' 11 ) 03/26/2024 9:21 AM DISPATCH SPECIALIST Body Mass Index 30.3 03/26/2024 9:21 AM DISPATCH SPECIALIST Plan of Treatment Health Maintenance Due Date Last Done Comments DTaP, Tdap and Td Vaccines ( 1 - Tdap) 1962 Zoster Vaccines (1 of 2) 1993 Annual Medicare Wellness Visit 2008 Dexa Scan (General) 2008 RSV Immunization or 60+ Years (1 - 1-dose 75+ series) 2018 COVID-19 Vaccine (2023-2 5 season) 2023 Pneumococcal Vaccine: 50+ Years Completed 01/01/2016, 10/05/2013 Meningococcal B Vaccine [...] CHEST+ABD+PEL W CON Routine 03/26/2024 12:20 PM DISPATCH SPECIALIST Lymphoma, small lymphocytic (CMS/HCC HHS/HCC) CT GD ASPIR+BX BONE MARROW Routine 03/26/2024 12:15 PM DISPATCH SPECIALIST Lymphoma, small lymphocytic (CMS/HCC HHS/HCC) CREATININE WHOLE BLOOD Routine 03/26/2024 12:15 PM DISPATCH SPECIALIST FLOW CYTOMETRY Routine 03/26/2024 11:55 AM DISPATCH SPECIALIST CHROMOSOME ANALYSIS HEMATOLOGIC MALIGNANCY Routine 03/26/2024 11:55 AM DISPATCH SPECIALIST XR CHEST PA OR AP 1V STAT 03/26/2024 10:47 AM DISPATCH SPECIALIST Lymphoma, small lymphocytic (CMS/HCC HHS/HCC) TYPE & SCREEN STAT 03/26/2024 9:58 AM DISPATCH SPECIALIST Lymphoma, small lymphocytic (CMS/HCC HHS/HCC) CBC W/DIFF AUTOMATED Routine 03/26/2024 8:28 AM DISPATCH SPECIALIST Lymphoma, small lymphocytic (CMS/HCC HHS/HCC) PROTHROMBIN TIME, VENOUS Routine 03/26/2024 8:28 AM DISPATCH SPECIALIST Lymphoma, small lymphocytic (CMS/HCC HHS/HCC) PATHOLOGY Routine 03/26/2024 12:00 AM DISPATCH SPECIALIST from Last 3 Months Results * CT CHEST+ABD+PEL W CON (03/26/2024 12:20 PM DISPATCH SPECIALIST) Anatomical Region Laterality Modality Chest, Abdomen, Pelvis Computed Tomography 04/04/2024 9:43 AM DISPATCH SPECIALIST Impressions 04/04/2024 10:02 AM DISPATCH SPECIALIST Impression: 1. Mediastinal and hilar lymphadenopathy as [...] 04/04/2024 9:43 AM Narrative 04/04/2024 10:02 AM DISPATCH SPECIALIST [address] [address] Examination: CT chest, abdomen and pelvis with [...] Procedure Note Rei Gaines MD - 04/04/[address] [address] Examination: CT chest, abdomen and pelvis with [...] left and trace right pleural effusions. Irregular qahkokepguwjuf-ky-bov opacities are present within both lungs, most [...] GD ASPIR+BX BONE MARROW (03/26/2024 12:15 PM DISPATCH SPECIALIST) Anatomical Region Laterality Modality Bone Computed Tomogra phy, Radiographic Imaging 03/26/2024 4:31 PM DISPATCH SPECIALIST Impressions 03/26/2024 5:05 PM DISPATCH SPECIALIST IMPRESSION: CT-guided percutaneous bone marrow biopsy, as described. The attending radiologist, Dr. Webber, was in the department for all critical portions of the procedure, has reviewed the images, and agrees with the content of this report. Dictated By: MONA Eric on 03/26/2024 4:31 PM Ordered By: JUDI ARREAGA Interpreted By: MONA Eric, 03/26/2024 4:31 PM Narrative 03/26/2024 5:05 PM DISPATCH SPECIALIST [address] [address] PROCEDURE: CT-guided bone marrow aspiration and biopsy DATE OF PROCEDURE: 03/26/2024 11:45 AM INDICATION: History of CLL. Primary provider: Mik Kim PA-C Supervising provider: Jamshid Webber M.D. Conscious sedation: Administered and monitored by a qualified interventional radiology nurse under supervision of the interventional physician staffing assistant. There was continuous monitoring of vital signs including pulse oximetry, end-tidal CO2, and EKG. Total intraservice or zbwh-mz-akcp sedation time: 5 minutes. TECHNIQUE AND FINDINGS: Informed written consent was obtained. The patient was then brought to the CT scanner suite, placed in the prone position, and Billings protocol was observed to verify correct patient, [...] The needle was then connected to an OnControl motorized device to penetrate the cortex. At [...] Procedure Note Jamshid Webber MD - 03/26/[address] [address] PROCEDURE: CT-guided bone marrow aspiration and biopsy DATE OF PROCEDURE: 03/26/2024 11:45 AM INDICATION: History of CLL. Primary provider: Mik Kim PA-C Supervising provider: Jamshid Webber M.D. Conscious sedation: Administered and monitored by a qualifiedinterventional radiology nurse under supervision of the interventionalphysician staffing assistant. There was continuous monitoring of vital signsincluding pulse oximetry, end-tidal CO2, and EKG. Total intraservice ihxinu-ch-ckyj sedation time: 5 minutes. TECHNIQUE AND FINDINGS: Informed written consent was obtained. The patient was then brought to theCT scanner suite, placed in the prone position, and Billings protocol wasobserved to verify correct patient, site, [...] (ABNORMAL) CREATININE WHOLE BLOOD (03/26/2024 12:15 PM DISPATCH SPECIALIST) CREATININE WHOLE BLOOD 0.9 0.6 - 1.3 mg/dL 03/26/2024 12:24 PM DISPATCH SPECIALIST [facility] GFR ESTIMATE 65(L) >90 ML/MIN/1. 73 M2 03/26/2024 12:24 PM DISPATCH SPECIALIST [facility] GFR NOTES GFR REFERENCE S: 03/26/2024 12:24 PM DISPATCH SPECIALIST [facility] Comment: THE ESTIMATED GFR IS [...] TEST WAS PERFORMED: 1215 03/26/2024 12:24 PM DISPATCH SPECIALIST [facility] 03/26/2024 12:1 5 PM DISPATCH SPECIALIST us Dawson Linton MD LABORATORY Final Result [facility] [address] [place] [address], [id number] * Flow Cytometry (03/26/2024 11:55 AM DISPATCH SPECIALIST) FLOW CYTOMETRY RESULTS [facility] Department of Laboratory Medicine [address] [place] [address] , extension [phone] Pathology Report Flow Cytometry Report Name: CICI HUTCHINSON Specimen #: [id number] Age: 2 1945 (Age: 78) Location: [facility] Sex: F Procedure Date: 03/26/2024 Hospital #: [id number] Date Received: 03/26/2024 Date Reported: 04/08/2024 Provider: [...] cells. Result: Tested: CD45, CD19, CD20, Surface Kenvil, Surface Lambda, CD5, CD10, CD38, CD34, CD14, [...] developed and its performance characteristics determined by [facility]. It has not been cleared or approved by the U.S. Food and Drug Administration. However, the use of Analyte Specific Reagents does not require FDA approval. [facility] 03/26/2024 11:5 5 AM DISPATCH SPECIALIST 03/26/2024 12:15 PM DISPATCH SPECIALIST Comment:Bone marrow aspirati on (See report [id number]) Judi Arreaga MD PATHOLOGY/CYTOLOGY OR DERABLES Final Result [facility] [address] [place] [address], [phone] * CHROMOSOME ANALYSIS HEMATOLOGIC MALIGNANCY (03/26/2024 11:55 AM DISPATCH SPECIALIST) SPECIMEN SOURCE BONE MARROW NA AHEP 03/26/2024 3:11 PM DISPATCH SPECIALIST [facility] CLINICAL INDICATION LYMPHOMA 03/26/2024 3:11 PM DISPATCH SPECIALIST [facility] PRIOR THERAPY/TRANSPLANT UNK 03/26/2024 3:11 PM DISPATCH SPECIALIST [facility] PHYSICIAN PHONE [phone] 3:11 PM DISPATCH SPECIALIST [facility] Comment: [phone] CLIENT PHONE [phone] 03/26/2024 3:11 PM DISPATCH SPECIALIST [facility] Comment: [phone] CHROMOSOME BLOOD REPORT 04/01/19 2:52 PM DISPATCH SPECIALIST Graze KRISTEN VELAZQUEZ Comment: Order ID: [id number] Specimen Type: Bone Marrow Clinical Indication: Lymphoma [...] 47,XX,+12[14]/46,XX[6] ASSAY INFORMATION: Method: G-Band (Digital Analysis: Avuxi/Nuforce) Cells Counted: 20 Band Level: 400 Cells Analyzed: 20 Cells Karyotyped: 4 Small clonal populations and subtle chromosome abnormalities may not be identified. Irish Brannon, Ph.D., [facility], Aerodynamics Teacher, Cytogenetics and Genomics, Electronic Signature: 04/01/2024 3:08 PM For more information on this test, go to [email or web address]/Ca-chromosome Test Performed by [facility], [employer] [facility], [id number] [place] [address] Mike Santana M.D., Ph.D., Director of Laboratories , [facility] [id number] 03/26/2024 11:5 5 AM DISPATCH SPECIALIST Judi Arreaga MD LABORATORY Final Result [facility] [id number] [place] [address], [facility] [address] [place] [phone], [phone] * XR CHEST PA OR AP 1V (03/26/2024 10:47 AM DISPATCH SPECIALIST) Anatomical Region Laterality Modality Chest Radiographic Fidelia ging 03/26/2024 11:0 4 AM DISPATCH SPECIALIST Impressions 03/26/2024 11:14 AM DISPATCH SPECIALIST IMPRESSION: Cardiomegaly with probable pulmonary congestion/mild interstitial CHF.Patchy opacity in the left midlung laterally which could represent pneumonia. Recommend correlation with any recent outside films if possible. Ordered By: JAMSHID WEBBER Interpreted By: Jamshid Webber MD, 03/26/2024 11:04 AM Narrative 03/26/2024 11:14 AM DISPATCH SPECIALIST [address] [address] EXAM DESCRIPTION: Chest 1 view EXAM TIME : 03/26/2024 10:44 AM INDICATION: Shortness of breath. History of CLL. Patient apparently has history of ELIER. COMPARISON FILM : CTA chest 08/23/2016. TECHNIQUE: Chest- 1 - view, 1 - images FINDINGS: Upright AP film obtained. Interval removal of previously present Affisr-y-Hqhq. Mild cardiomegaly. Calcified aortic knob. Central pulmonary congestion with interstitial changes suggestive of CHF. In addition there is patchy groundglass opacity in the left midlung laterally which could represent pneumonia. Lungs questionable very minimal blunting left costophrenic angle, no significant size effusions. No pneumothorax. No acute bony abnormality. Procedure Note Jamshid Webber MD - 03/26/[address] [address] EXAM DESCRIPTION: Chest 1 view EXAM TIME : 03/26/2024 10:44 AM INDICATION: Shortness of breath. History of CLL. Patient apparently hashistory of ELIER. COMPARISON FILM : CTA chest 08/23/2016. TECHNIQUE: Chest- 1 - view, 1 - images FINDINGS: Upright AP film obtained. Interval removal of previously nyvfaafCteira-r-Hxnv. Mild cardiomegaly. Calcified aortic knob. Centralpulmonary congestion [...] * TYPE & SCREEN (03/26/2024 9:58 AM DISPATCH SPECIALIST) UNITS ORDERED 1 03/26/2024 10:20 AM DISPATCH SPECIALIST [facility] ABO/RH A POSITIVE 03/26/2024 10:54 AM DISPATCH SPECIALIST [facility] ANTIBODY SCREEN NEGATIVE 03/26/2024 10:54 AM DISPATCH SPECIALIST [facility] SAMPLE EXPIRATION 03/29/2024,2 359 03/26/2024 10:09 AM DISPATCH SPECIALIST [facility] 03/26/2024 9:58 AM DISPATCH SPECIALIST Mik Kim PA-C BLOOD BANK TEST ORDERABLES Final Result [facility] [address] [place] [address], [phone] * (ABNORMAL) PROTIME/INR, VENOUS (PROTHROMBIN TIME) (03/26/2024 8:28 AM DISPATCH SPECIALIST) PROTIME 14.3(H) 9.4 - 12.5 SEC 03/26/2024 9:06 AM DISPATCH SPECIALIST [facility] INR 1.2(H) 0.8 - 1.1 03/26/2024 9:06 AM DISPATCH SPECIALIST [facility] 03/26/2024 8:28 AM DISPATCH SPECIALIST Dawson Linton MD LABORATORY Final Result [facility] [address] [place] [address], [phone] * (ABNORMAL) CBC W/DIFF AUTOMATED (03/26/2024 8:28 AM DISPATCH SPECIALIST) WBC 6.16 4.00 - 10.80 x10'3/uL 03/26/2024 9:26 AM [facility] RBC 2.39(L) 4.10 - 5.40 x10'6/uL 03/26/2024 9:26 AM [facility] HGB 6.7(LL) 12.0 - 16.0 G/DL 03/26/2024 9:26 AM [facility] Comment: This result has been called to [id number] IN RADIOLOGY by [id number] on 03/26/2024 09:24:23, and has been read back. HCT 21.8(L) 36.0 - 47.0 % 03/26/2024 9:26 AM [facility] MCV 91.2 78.0 - 100.0 FL 03/26/2024 9:26 AM [facility] MCH 28.0 27.0 - 31.0 PG 03/26/2024 9:26 AM [facility] MCHC 30.7(L) 33.0 - 36.0 G/DL 03/26/2024 9:26 AM [facility] RDW 17.1(H) 11.5 - 14.5 % 03/26/2024 9:26 AM [facility] PLT 48(L) 150 - 350 x10'3/uL 03/26/2024 9:26 AM [facility] MPV 10.8(H) 7.4 - 10.4 FL 03/26/2024 9:26 AM [facility] DIFFERENTIAL TYPE MANUAL DIFFERENTIAL 03/26/2024 9:29 AM [facility] NRBC % 0.0 % 03/26/2024 9:29 AM [facility] SEG NEUTROPHILS 70 % 9:29 AM [facility] LYMPHOCYTES 22 % 03/26/2024 9:29 AM [facility] MONOCYTES 4 % 03/26/2024 9:29 AM [facility] EOSINOPHILS 3 % 03/26/2024 9:29 AM [facility] BASOPHILS 1 % 03/26/2024 9:29 AM [facility] ABS. NEUTROPHILS 4.31 1.60 - 8.30 x10'3/uL 03/26/2024 9:29 AM [facility] ABS. LYMPHOCYTES 1.36 0.80 - 4.70 x10'3/uL 03/26/2024 9:29 AM [facility] ABS. MONOCYTES 0.25 0.00 - 1.50 x10'3/uL 03/26/2024 9:29 AM [facility] ABS. EOSINOPHILS 0.18 0.00 - 0.40 x10'3/uL 03/26/2024 9:29 AM [facility] ABS. BASOPHILS 0.06 0.00 - 0.20 x10'3/uL 03/26/2024 9:29 AM [facility] ABS. NUCLEATED RBC'S 0.00 0.00 - 0.01 x10'3/uL 03/26/2024 9:29 AM [facility] RBC MORPHOLOGY SLIDE REVIEWED 2024 9:29 AM [facility] ANISO SLIGHT 03/26/2024 9:29 AM [facility] POIKLO SLIGHT 03/26/2024 9:29 AM [facility] HYPOCHROMASIA SLIGHT 03/26/2024 9:29 AM [facility] OVALOCYTES PRESENT 03/26/2024 9:29 AM DISPATCH SPECIALIST [facility] TEAR DROP PRESENT 03/26/2024 9:29 AM DISPATCH SPECIALIST [facility] PLT EST. DECREASED 03/26/2024 9:29 AM DISPATCH SPECIALIST [facility] 03/26/2024 8:28 AM DISPATCH SPECIALIST Dawson Linton MD LABORATORY Final Result [facility] [address] [place] [address], [phone] * Pathology (03/26/2024 12:00 AM DISPATCH SPECIALIST) PATHOLOGY [facility] Department of Laboratory Medicine [address] [place] [address] , extension [phone] Pathology Report Addendum Bone Marrow Report Name: CICI HUTCHINSON Specimen #: [id number] Age: 2 1945 (Age: 78) Location: [facility] Sex: F Procedure Date: 03/26/2024 Hospital #: [id number] Date Received: 03/26/2024 Date Reported: / Provider: [...] similar finding in the marrow at the [facility], see their report [id number]. There is no evidence of transformation in [...] with the guidelines of the [employer] [place] [employer] for the report of cancer specimens. [...] Gross examination (when applicable) was performed at [facility], [address] [place] [address]. This case was interpreted and signed out at [facility], [address] [place] [address]. All immunohistochemical and histochemical tests were developed by and performed at [facility], [address] [place] [address]. All tests reported here have not been [...] Addendum Comment Routine cytogenetics is performed at [facility]. 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 Trisomy 12 is a recurrent abnormality in chronic/small lymphocytic lymphoma. In CLL/SLL trisomy 12 is often associated with atypical immunophenotype and lymphocyte morphology. These findings correspond with the bone marrow biopsy results of CLL/SLL. [facility] 03/26/2024 03/26/2024 1:3 0 PM DISPATCH SPECIALIST Comment:Bone marrow aspirati on right iliac&Bone marrow biopsy right iliac us Judi Arreaga MD PATHOLOGY/CYTOLOGY OR DERABLES Final Result [facility] [address] [place] [address], [phone] from Last 3 Months Insurance [facility] Care Teams Automatic Lathe Tender Relationship Specialty Start Date End Date Non-Staff, Provider PCP - General UNKNOWN PHYSICIAN SPECIALTY 12/25/23
--- OUTSIDE RECORDS SUMMARY | 2024-06-21 13:09 | XMS_ITS ---
Author Organization [facility] Address [address] [place], [place] [id number] Care Team Providers Care Drilling Plant Operator Name Role Phone CHI GIBSON Unavailable [phone] Jonathon Nguyen Unavailable Unavailable BILL PEREZ Unavailable [phone] REASON FOR VISIT *General care Medications Medication SIG (Take, Route, Frequency, Duration) Notes Start Date End Date Status chondroitin sulfates 250 MG Oral Capsule ORAL chondroitin sulfates 250 MG Oral CapsuleOriginal Medicationchondroitin sulfates 250 MG Oral Capsule *Reorder from [employer] for eRx and Interaction Alerts* 07/20/2012 Active aspirin 81 MG Delayed Release Oral Tablet [Katelyn Aspirin] ORAL aspirin 81 MG Delayed Release Oral Tablet [[employer] Aspirin]Original Medicationaspirin 81 MG Delayed Release Oral Tablet [[employer] Aspirin] *Reorder from [employer] for eRx and Interaction Alerts* 07/20/2012 Active Glucosamine Sulfate 500 MG Oral Tablet ORAL glucosamine sulfate 500 MG Oral TabletOriginal Medicationglucosamine sulfate 500 MG Oral Tablet *Reorder from [employer] for eRx and Interaction Alerts* 07/20/2012 Active Magnesium Gluconate 550 MG Oral Tablet ORAL magnesium gluconate 550 MG Oral TabletOriginal Medicationmagnesium gluconate 550 MG Oral Tablet *Reorder from [employer] for eRx and Interaction Alerts* 07/20/2012 Active Encounters Encounter Location Date Provider Diagnosis [place] [address] [place], [place] [id number] 01/22/2024 BILL PEREZ Tinea unguium B35.1 ; Pain in right toe(s) M79.674 ; Pain in left toe(s) M79.675 ; Other hammer toe(s) (acquired), right foot M20.41 ; Other hammer toe(s) (acquired), left foot M20.42 ; Unspecified atherosclerosis of [place] arteries of extremities, bilateral legs I70.203 and [...] (ICD-10 - M20.42) 01/22/2024 Unspecified atherosclerosis of [place] arteries of extremities, bilateral legs (ICD-10 - [...] were emphasized. Unspecified atherosclerosis of [place] arteries of extremities, bilateral legs Patient educated [...] CICI HUTCHINSON KDOB:[birth year] (78 yo F)Acc No.[id number]:01/22/2024 Patient: CICI DEAN Provider: Livan PEREZ :1945 A ge:78 Y S ex:Female Date:01/22/2024 Address:[address] [place] [address], [place] [address] Subjective: * Chief Complaints: * 1 . *General care. * HPI: H PI: General care P atient presents to the office for diabetic foot care. Patient states that their nails are thickened, elongated and painful. Patient states that it is aggravated by shoe gear. Onset is gradual., Patient denies taking blood thinners., Date last seen by Dr. Nguyen was 01/2024., Initials [facility]. * ROS: G eneral / Constitutional: Patient denies w eakness. R espiratory: Patient denies c hronic cough, shortness of breath, sputum production. C ardiovascular: Patient denies c hest pain, history of ME, irregular heartbeat. M usculoskeletal: Patient complains of [...] gluconate 550 MG Oral Tablet *Reorder from [employer] for eRx and Interaction Alerts*, Taking Glucosamine Sulfate 500 MG Oral Tablet ORAL , Notes to Pharmacist: glucosamine sulfate 500 MG Oral TabletOriginal Medicationglucosamine sulfate 500 MG Oral Tablet *Reorder from [facility] for eRx and Interaction Alerts*, Taking aspirin 81 MG Delayed Release Oral Tablet [[employer] Aspirin] ORAL , Notes to Pharmacist: aspirin 81 MG Delayed Release Oral Tablet [[employer] Aspirin]Original Medicationaspirin 81 MG Delayed Release Oral Tablet [[employer] Aspirin] *Reorder from [facility] for eRx and Interaction Alerts*, Taking chondroitin sulfates 250 MG Oral Capsule ORAL , Notes to Pharmacist: chondroitin sulfates 250 MG Oral CapsuleOriginal Medicationchondroitin sulfates 250 MG Oral Capsule *Reorder from [facility] for eRx and Interaction Alerts* Objective: * [...] M20.42 6 . U nspecified atherosclerosis of [place] arteries of extremities, bilateral legs - I70.203 [...] were emphasized. 3. U nspecified atherosclerosis of [place] arteries of extremities, bilateral legs Notes: Patient [...] Information: * Visit Code: * Procedure Codes: 40342 DEBRIDE NAIL, 6 OR MORE. Modifiers: Q8 * CARE SALES EXECUTIVE Sign off status: Completed true * Provider: Livan PEREZ Date: 03/23/2023 Generated for Rigoberto smith/Adali/Sharon on: 0 06/21/2024 01:08 PM CDT History and Physical Notes * [...]
== END 2024-06-21 11:15 | disposition home or self-care (01) ==
LOC: CHSLAB 11:43 → CHSTREATRM 11:49
PROVIDERS: PCP Internal Medicine; Visit Provider Internal Medicine Hematology
DX: Z45.2 Encounter for adjustment and management of vascular access device (principal); C91.10 Chronic lymphocytic leukemia of B-cell type not having achieved remission
CPT/HCPCS: 96523

== ENCOUNTER 2024-07-07 14:49 | Outpatient (CLI) | payer MEDICARE, SELFPAY ==
--- OUTSIDE RECORDS SUMMARY | 2024-07-07 14:58 | XMS_ITS | Encounter Summary ---
Author Organization [facility] Address [address] [place] [address] Care Team Providers Care Split And Drum Room Supervisor Name Role Phone Non-Staff, Provider Primary Care Provider Luis troncoso Encounter Details Date Type Department Care Team (Late st Contact Info) Description 03/27/2024 [facility] Documentation [place] [address] [place] [address] Pema Kinsey MD [address] [place], [place] [address] Social History Tobacco Use Types Packs/Day Years Used Date Smoking Tobacco: Never Smokeless Tobacco: Never Alcohol Use Standard Drinks/Week Comments Not Currently 0 (1 standard drink = 0.6 oz pur e alcohol) Comments Unknown Sex and Gender Information Value Date Recorded Sex Assigned at Female 03/26/2024 8:00 AM INK BLENDER Legal Sex Female 11:03 PM INK BLENDER Gender Identity Not on file Sexual Orientation [...] on filedocumented in this encounter Care Teams Split And Drum Room Supervisor Relationship Specialty Start Date End Date Non-Staff, Provider PCP - General UNKNOWN PHYSICIAN SPECIALTY 12/25/23 documented as of this encounter
--- OUTSIDE RECORDS SUMMARY | 2024-07-07 14:58 | XMS_ITS ---
Author Organization [facility] Address [address] [place], [place] [address] Care Team Providers Care Basket Hand Weaver Name Role Phone CHI GIBSON Unavailable [phone] Jonathon Nguyen Unavailable Unavailable REASON FOR VISIT *General care Encounters Encounter Location Date Provider Diagnosis [address] [id number] 04/22/2024 CHI GIBSON Plan Of Treatment No Information Progress Notes * CICI HUTCHINSON KDOB:[birth year] (79 yo F)Acc No.[id number]:04/22/2024 Patient: MARIA ELENA DEANLIAndres Mar Provider: Andres Gibson DPM :1945 A ge:78 Y S ex:Female Date:04/22/2024 Address:[address] [place], [place] [id number] Subjective: * Chief Complaints: * 1 . *General care. * Medical History: Objective: * Vitals: Assessment: Plan: * Treatment: * Billing Information: * Visit Code: * Procedure Codes: * Electronic signature of CHI GIBSON DPM on 07/07/2024 at 02:58 PM CDT Sign off status: Pending * Provider: Andres Gibson DPM Date: 04/22/2024 Generated for Printi ng/Faxing/eTransmitting on: 0 07/07/2024 02:58 PM CDT
--- OUTSIDE RECORDS SUMMARY | 2024-07-07 14:58 | XMS_ITS | Encounter Summary ---
Author Organization [facility] Address [address] [place] [address] Care Team Providers Care Respiratory Services Manager Name Role Phone Non-Staff, Provider Primary Care Provider Luis troncoso Encounter Details Date Type Department Care Team (Late st Contact Info) Description 05/20/2024 Hospital Orders Only [facility] [address] [facility] [address] Pema Kinsey MD [address] 1[address] [place] [address] Social History Tobacco Use Types Packs/Day Years Used Date Smoking Tobacco: Never Smokeless Tobacco: Never Alcohol Use Standard Drinks/Week Comments Not Currently 0 (1 standard drink = 0.6 oz pur e alcohol) Comments Unknown Sex and Gender Information Value Date Recorded Sex Assigned at Female 03/26/2024 8:00 AM DIAMOND SIZER AND GRADER Legal Sex Female 11:03 PM DIAMOND SIZER AND GRADER Gender Identity Not on file Sexual Orientation [...] on filedocumented in this encounter Care Teams Respiratory Services Manager Relationship Specialty Start Date End Date Non-Staff, Provider PCP - General UNKNOWN PHYSICIAN SPECIALTY 12/25/23 documented as of this encounter
--- OUTSIDE RECORDS SUMMARY | 2024-07-07 14:58 | XMS_ITS | Patient Health Record ---
Author Organization [facility] Address [address] [place], [place] [address] Care Team Providers Care Clam Bed Laborer Name Role Phone CHI GIBSON Unavailable [phone] Jonathon Nguyen Unavailable Unavailable BILL PEREZ Unavailable [phone] Allergies No Known Allergies Reason For Referral No Information Medications Medication SIG (Take, Route, Frequency, Duration) Notes Start Date End Date Status chondroitin sulfates 250 MG Oral Capsule ORAL chondroitin sulfates 250 MG Oral CapsuleOriginal Medicationchondroitin sulfates 250 MG Oral Capsule *Reorder from [place] for eRx and Interaction Alerts* 07/20/2012 Active aspirin 81 MG Delayed Release Oral Tablet [Shenzhen MR Photoelectricity Aspirin] ORAL aspirin 81 MG Delayed Release Oral Tablet [Shenzhen MR Photoelectricity Aspirin]Original Medicationaspirin 81 MG Delayed Release Oral Tablet [Shenzhen MR Photoelectricity Aspirin] *Reorder from [employer] [place] for eRx and Interaction Alerts* 07/20/2012 Active Glucosamine Sulfate 500 MG Oral Tablet ORAL glucosamine sulfate 500 MG Oral TabletOriginal Medicationglucosamine sulfate 500 MG Oral Tablet *Reorder from [employer] [place] for eRx and Interaction Alerts* 07/20/2012 Active Magnesium Gluconate 550 MG Oral Tablet ORAL magnesium gluconate 550 MG Oral TabletOriginal Medicationmagnesium gluconate 550 MG Oral Tablet *Reorder from [place] for eRx and Interaction Alerts* 07/20/2012 Active Immunizations Vaccine Route Administration Date Status Comme nts Influenza, high dose seasonal Unknown 12/19/2022 Admini stered Vital Signs Height-cm 149.86 cm 07/10/2023 Weight-kg 69.85 kg 07/10/2023 Height 59.00 in 07/10/2023 Weight 154 lbs 07/10/2023 BMI 31.1 kg/m2 07/10/2023 Encounters Encounter Location Date Provider Diagnosis [address] [id number] 07/10/2023 BILL PEREZ Tinea unguium B35.1 ; Pain in right toe(s) M79.674 ; Pain in left toe(s) M79.675 ; Other hammer toe(s) (acquired), right foot M20.41 ; Other hammer toe(s) (acquired), left foot M20.42 ; 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, bilateral legs I70.203 and Type 2 diabetes mellitus with other circulatory complications E11.[address] [id number] 09/11/2023 BILL PEREZ Tinea unguium B35.1 ; Pain in right toe(s) M79.674 ; Pain in left toe(s) M79.675 ; Other hammer toe(s) (acquired), right foot M20.41 ; Other hammer toe(s) (acquired), left foot M20.42 ; 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, bilateral legs I70.203 and Type 2 diabetes mellitus with other circulatory complications E11.[address] [id number] 11/13/2023 BILL PEREZ Tinea unguium B35.1 ; Pain in right toe(s) M79.674 ; Pain in left toe(s) M79.675 ; Other hammer toe(s) (acquired), right foot M20.41 ; Other hammer toe(s) (acquired), left foot M20.42 ; 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, bilateral legs I70.203 and Type 2 diabetes mellitus with other circulatory complications E11.59 [address] [place], [place] [id number] 01/22/2024 BILL PEREZ Tinea unguium B35.1 ; Pain in right toe(s) M79.674 ; Pain in left toe(s) M79.675 ; Other hammer toe(s) (acquired), right foot M20.41 ; Other hammer toe(s) (acquired), left foot M20.42 ; 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, bilateral legs I70.203 and [...] (ICD-10 - M20.42) 07/10/2023 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, 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) Patient educated on risks and aggravating factors of PVD, including conservative treatment options such as a diet and exercise regimen to aid in slowing progression of vascular disease 09/11/2023 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, 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) Patient educated on risks and aggravating factors of PVD, including conservative treatment options such as a diet and exercise regimen to aid in slowing progression of vascular disease 11/13/2023 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, 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
--- OUTSIDE RECORDS SUMMARY | 2024-07-07 14:59 | XMS_ITS | Encounter Summary ---
Author Organization [facility] Address [facility] [place] [address] Care Team Providers Care Wire Drawer Name Role Phone Non-Staff, Provider Primary Care Provider Luis troncoso Reason for Visit * Reason Onset Date Comments Preprocedure Call 03/19/[address] Nguyen's office and they will fax over signed office notes from 03/16/24 appt Encounter Details Date Type Department Care Team (Latest Contact Info) Description 03/19/2024 Pre-Procedure Call [facility] Interventional Radiology [address] [place] [address] Randee Alas RN Preprocedure Call (Spoke with [...] Sex Assigned at Female 03/26/2024 8:00 AM GAUGE MACHINE OPERATOR Legal Sex Female 11:03 PM GAUGE MACHINE OPERATOR Gender Identity Not on file Sexual [...] on filedocumented in this encounter Care Teams Wire Drawer Relationship Specialty Start Date End Date Non-Staff, Provider PCP - General UNKNOWN PHYSICIAN SPECIALTY 12/25/23 documented as of this encounter
--- OUTSIDE RECORDS SUMMARY | 2024-07-07 14:59 | XMS_ITS | Data Portability ---
Author Organization [facility] Address [address] [place] [address] Care Team Providers Care Horticulture Professor Name Role Phone KEANU SANTIAGO Primary Care Provider [phone] KEANU SANTIAGO Referring Provider Assessment Encounter Date [...] more than half the time spent in cvwn-qy-gbze care. Not available 02/01/2023 14:31:51 03/07/2023 03/07/2023 [...] spent treatment patient more half of this ygso-eg-rspe conversation Not available 03/07/2023 12:20:35 03/28/2023 03/28/2023 [...] knee 024 03/28/19 24 [email or web address] [facility] [place], [address], [place], [address], 4 16:37:40 XR, knee 024 03/07/19 24 [email or web address] [facility] [place], [address], [place], [address], 4 12:21:50 Medication Orders None record ed. Patient TargetsNo targets recorded. Patient InstructionsNo instructions recorded. Reason for Referral None Reported. Results Created Date Observation Date Name Description Value Unit Range Abnormal Flag Note LastModifiedBy Organization Detail LastModifiedTime 06/07/19 22 XR, hand No observ ation record ed. [id number] [facility] [place] [address], [place], [address], 05/02/2022 01:01:26 06/07/19 22 XR, shoul karlie No observ ation record ed. [id number] [facility] [place] [address], [place], [address], 05/02/2022 01:01:26 06/21/19 22 XR, humer us No observ ation record ed. [id number] [facility] [place] [address], [place], [address], 05/02/2022 01:01:26 07/05/19 22 XR, hand No observ ation record ed. [id number] [facility] [place] [address], [place], [address], 05/02/2022 01:01:26 07/05/19 22 XR, shoul karlie No observ ation record ed. [id number] [facility] [place] [address], [place], [address], 05/02/2022 01:01:26 07/28/19 22 07/27/2021 XR, shoul karlie No observ ation record ed. [id number] [facility] [place] [address], [place], [address], 05/02/2022 01:01:26 01/30/20 23 XR, knee No observ ation record ed. [email or web address] Not Available 2022 16:59:15 03/07/19 24 XR, knee No observ ation record ed. [facility] [place] [address], [place], [address], 03/07/2023 12:18:44 03/28/19 24 XR, knee No observ ation record ed. [facility] [place] [address], [place], [address], 03/28/2023 16:31:08 Result Notes None recorded. Problems Name Problem SNOMED Code Status Onset Date Resolution Date Notes Provider Name and Address Organization Details Recorded Time Pain of right shoulder joint 36943723403260 100 Active 2021 Not Available [facility] 3 00:59:39 Fracture of phalanx of finger 85993013 Active 2021 Not Available [facility] 3 00:59:39 Pain of left hand 53674272568397 3 Active 2021 Not Available [facility] 3 00:59:39 Closed fracture of upper end of humerus 09279352 Active 2021 Not Available [facility] 3 00:59:40 Pain of right knee joint 37661909594640 0 Active 2022 NAPOLEON Wan, [facility] 3 12:25:42 Fracture of ankle 28491421 Active 2023 NAPOLEON Wan, [facility] 4 10:58:49 Closed fracture of right patella 23122447082292 100 Active 2023 MONA Red [address] [place] [address], [address] [address], [place], [address] , [facility] 4 11:35:53 Problem Notes None recorded. Procedures Surgical History Date Name Laterality Status Provider Name and Address Organization Details Recorded Time Breast Surgery completed Not Available [facility] 05/02/2022 00:58:24 procedure on hand completed Not Available [facility] 05/02/2022 00:58:24 Cataract Surgery completed Not Available [facility] 05/02/2022 00:58:24 Imaging Results Imaging Date Name Status LastModified by [facility] Details LastModified Time 06/06/2021 XR, hand completed [id number] 30 026 [facility] [place] [address], [place], [address], 05/02/2022 01:01:26 06/06/2021 XR, shoulder completed [id number] 30 026 [facility] [place] [address], [place], [address], 05/02/2022 01:01:26 06/20/2021 XR, humerus completed [id number] 30 026 [facility] [place] [address], [place], [address], 05/02/2022 01:01:26 07/27/2021 XR, shoulder completed [id number] 30 026 [facility] [place] [address], [place], [address], 05/02/2022 01:01:26 07/04/2021 XR, hand completed [id number] 30 026 [facility] [place] [address], [place], [address], 05/02/2022 01:01:26 07/04/2021 XR, shoulder completed [id number] 30 026 [facility] [place] [address], [place], [address], 05/02/2022 01:01:26 01/29/2023 XR, knee completed Information no t available 01/29/2023 16:59:15 03/07/2023 XR, knee completed [facility] [place] [address], [place], [address], 03/07/2023 12:18:44 03/28/2023 XR, knee completed [facility] [place] [address], [place], [address], 03/28/2023 16:31:08 Procedure Notes None recorded. Medical [...] DateTime 07/04/2021 144.78 cm Not Available [facility] 3 00:58:55 Date Recorded Body height Provider Name an d Address Organization Details Last Updated DateTime 07/27/2021 144.78 cm Not Available [facility] 3 00:58:55 Date Recorded Body height Body mass index (BMI) Body weight Provider Name and Address Organization Details Last Updated DateTime 01/31/2023 144.78 cm 32.9 kg/m2 45632.04 g Krys Campos Mary Jo [facility] 01/31/2023 12:39:06 Date Recorded Body height Provider Name an d Address Organization Details Last Updated DateTime 03/07/2023 144.78 cm Krys Campos Mary Jo [facility] 03/07/2023 10:57:14 Date Recorded Body height Provider Name an d Address Organization Details Last Updated DateTime 03/28/2023 144.78 cm Michela Gardenia [facility] 03/28/2023 14:13:14 Social History Question Answer Notes LastModified by Organizat ion Details LastModified Time Tobacco Smoking Status Never Smoker Not Available [facility] 05/02/2022 00:58:03 What Is Your Level Of Alcohol Consumption? None [id number] Information not available 05/02/2022 Sex: Unknown Functional Status None recorded. Mental Status None recorded. Family History Relationship Description Onset Age of this Age Resolved Age Notes LastModified by Organization Details LastModified Time Father Hypertensive disorder [id number] Not available 05/02/2022 00:58:26 Father Diabetes mellitus [id number] Not available 05/02/2022 00:58:26 Mother Hypertensive disorder [id number] Not available 05/02/2022 00:58:26 Mother Diabetes mellitus [id number] Not available 05/02/2022 00:58:26 Medical History Condition [...] HAVE YOU BEEN HOSPITALIZED OR SEEN IN [facility] IN THE PAST YEAR ? N [...] SNOMED-CT Code Diagnosis ICD10 Code Diagnosis Note [id number] Christian Olsen MD [facility] [address] [facility] [address] [place] [address] 05/23/2021 00:00:00 05/27/2021 12:10:32 [id number] Christian Olsen MD [facility] [place] [address] [place] [address] 06/06/2021 00:00:00 06/06/2021 14:59:59 [id number] MD BECKY [facility] [place] [address] [place] [address] 06/20/2021 00:00:00 06/20/2021 10:31:52 [id number] Christian Olsen MD [facility] [place] [address] [place] [address] 07/04/2021 00:00:00 07/04/2021 17:33:55 [id number] MD BECKY [facility] [place] [address] [place] [address] 07/27/2021 00:00:00 07/30/2021 17:54:03 [id number] Christian Olsen MD [facility] [place] [address] [place] [address] 01/31/2023 12:01:28 02/03/2023 10:53:27 Pain of right knee joint 5270950957 35005 M25.831 [id number] MD ALEC [facility] [place] [address] [place] [address] 03/07/2023 10:46:53 03/07/2023 12:21:50 Closed fracture of right patella 7742896745 8123882 S82.001A [id number] Christian Olsen MD [facility] [place] [address] [place] [address] 03/28/2023 14:03:48 03/28/2023 16:37:40 Pain of right knee joint 3577064675 56240 M25.561 Health Concerns Section Related Observation LastModified by Organization Detai ls LastModified Time None Recorded Concern Status LastModified by Organization Details LastModified Time None Recorded Advance Directives Directive None Recorded Payers Encounter Date Sequence Insurance Name Policy Number Policy Guerrero Covered Member ID Guerrero Member ID Guarantor Name 01/31/2023 1 [place] Elayne Salmeron [id number] Elayne Salmeron 01/31/2023 2 [employer] (MEDICARE SUPPLEMENT) Elayne Salmeron [id number] Elayne Salmeron 03/07/2023 1 [place] Elayne Salmeron [id number] Elayne Salmeron 03/07/2023 2 [employer] (MEDICARE SUPPLEMENT) Elayne Salmeron [id number] Elayne Salmeron 03/28/2023 1 [place] Elayne Salmeron [id number] Elayne Salmeron 03/28/2023 2 [employer] LIFE (MEDICARE SUPPLEMENT) Elayne Salmeron [id number] Elayne Salmeron Notes Date Note Type Note [...] with her son today. Christian Olsen MD [address] [facility] [facility] [address], [place], [address], [place] [facility] [place] [facility] 02/01/2023 14:32:04 OBGyn Episode No OBEpisode recorded.
--- OUTSIDE RECORDS SUMMARY | 2024-07-07 14:59 | XMS_ITS | Clinical Summary ---
Author Organization [facility] Address [address] [place] [address] Care Team Providers Care Infection Prevention Practitioner Name Role Phone Non-Staff, Provider Primary Care [...] - 05/20/2024 10:50 AM CDT Hospital Encounter [facility] [address] [place] [address] Pema Kinsey MD Discharge Disposition: Home or Self Care (Routine Discharge) 05/20/2024 Travel 05/20/2024 Hospital Orders Only [facility] [address] [place] [address] Pema Kinsey MD from Last 3 Months Social History Tobacco Use Types Packs/Day Years Used Date Smoking Tobacco: Never Smokeless Tobacco: Never Tobacco Cessation:Counseling Given: Not Answered Alcohol Use Standard Drinks/Week Comments Not Currently 0 (1 standard drink = 0.6 oz pur e alcohol) Comments Unknown Sex and Gender Information Value Date Recorded Sex Assigned at Female 03/26/2024 8:00 AM PREFORMER IMPREGNATED FABRICS Legal Sex Female 11:03 PM PREFORMER IMPREGNATED FABRICS Gender Identity Not on file Sexual Orientation Not on file Last Filed Vital Signs Vital Sign Reading Time Taken Comments Blood Pressure 137/48 03/26/2024 1:05 PM PREFORMER IMPREGNATED FABRICS Pulse 65 03/26/2024 1:05 PM PREFORMER IMPREGNATED FABRICS Temperature 35.7 C (96.3 F) 12/26/2023 9:21 AM CDT Respiratory Rate 24 03/26/2024 1:05 PM PREFORMER IMPREGNATED FABRICS Oxygen Saturation 94% 03/26/2024 1:18 PM PREFORMER IMPREGNATED FABRICS Inhaled Oxygen Concentration - - Weight 68 kg (150 lb) 03/26/2024 9:21 AM PREFORMER IMPREGNATED FABRICS Height 149.9 cm (4' 11 ) 03/26/2024 9:21 AM PREFORMER IMPREGNATED FABRICS Body Mass Index 30.3 03/26/2024 9:21 AM PREFORMER IMPREGNATED FABRICS Plan of Treatment Health Maintenance Due Date Last Done Comments DTaP, Tdap and Td Vaccines ( 1 - Tdap) 1962 Zoster Vaccines (1 of 2) 1993 Annual Medicare Wellness Visit 2008 Dexa Scan (General) 2008 RSV Immunization or 60+ Years (1 - 1-dose 75+ series) 2018 COVID-19 Vaccine ( - 2023-2 5 season) 2023 Pneumococcal Vaccine: 50+ Years Completed 01/01/2016, 10/05/2013 Meningococcal B Vaccine Aged Out No l onger eligible based on patient's age to complete this topic Meningococcal Vaccine Aged Out No kathleen shefali eligible based on patient's age to complete this topic RSV Immunizations Under 20 Months Aged Out No longer eligible b ased on patient's age to complete this topic Insurance [employer] MEDICARE Care Teams Infection Prevention Practitioner Relationship Specialty Start Date End Date Non-Staff, Provider PCP - General UNKNOWN PHYSICIAN SPECIALTY 12/25/23
--- OUTSIDE RECORDS SUMMARY | 2024-07-07 14:59 | XMS_ITS ---
Author Organization [facility] Address [address] [place], [place] [id number] Care Team Providers Care Food Packer Name Role Phone CHI GIBSON Unavailable [phone] Jonathon Nguyen Unavailable Unavailable BILL PEREZ Unavailable [phone] REASON FOR VISIT *General care Medications Medication SIG (Take, Route, Frequency, Duration) Notes Start Date End Date Status chondroitin sulfates 250 MG Oral Capsule ORAL chondroitin sulfates 250 MG Oral CapsuleOriginal Medicationchondroitin sulfates 250 MG Oral Capsule *Reorder from [employer] for eRx and Interaction Alerts* 07/20/2012 Active aspirin 81 MG Delayed Release Oral Tablet [Kateyln Aspirin] ORAL aspirin 81 MG Delayed Release Oral Tablet [Imagistx Aspirin]Original Medicationaspirin 81 MG Delayed Release Oral Tablet [Imagistx Aspirin] *Reorder from [employer] for eRx and Interaction Alerts* 07/20/2012 Active Glucosamine Sulfate 500 MG Oral Tablet ORAL glucosamine sulfate 500 MG Oral TabletOriginal Medicationglucosamine sulfate 500 MG Oral Tablet *Reorder from [employer] for eRx and Interaction Alerts* 07/20/2012 Active Magnesium Gluconate 550 MG Oral Tablet ORAL magnesium gluconate 550 MG Oral TabletOriginal Medicationmagnesium gluconate 550 MG Oral Tablet *Reorder from [employer] for eRx and Interaction Alerts* 07/20/2012 Active Encounters Encounter Location Date Provider Diagnosis [facility] [address] [place], [place] [id number] 01/22/2024 BILL PEREZ Tinea unguium B35.1 ; Pain in right toe(s) M79.674 ; Pain in left toe(s) M79.675 ; Other hammer toe(s) (acquired), right foot M20.41 ; Other hammer toe(s) (acquired), left foot M20.42 ; Unspecified atherosclerosis of [place] arteries of extremities, bilateral legs I70.203 and [...] (ICD-10 - M20.42) 01/22/2024 Unspecified atherosclerosis of [place] arteries of extremities, bilateral legs (ICD-10 - [...] conservative options were emphasized. 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 [...] gluconate 550 MG Oral Tablet *Reorder from [employer] for eRx and Interaction Alerts*, Taking Glucosamine Sulfate 500 MG Oral Tablet ORAL , Notes to Pharmacist: glucosamine sulfate 500 MG Oral TabletOriginal Medicationglucosamine sulfate 500 MG Oral Tablet *Reorder from [facility] for eRx and Interaction Alerts*, Taking aspirin 81 MG Delayed Release Oral Tablet [Imagistx Aspirin] ORAL , Notes to Pharmacist: aspirin 81 MG Delayed Release Oral Tablet [Imagistx Aspirin]Original Medicationaspirin 81 MG Delayed Release Oral Tablet [Imagistx Aspirin] *Reorder from [facility] for eRx and Interaction Alerts*, Taking chondroitin sulfates 250 MG Oral Capsule ORAL , Notes to Pharmacist: chondroitin sulfates 250 MG Oral CapsuleOriginal Medicationchondroitin sulfates 250 MG Oral Capsule *Reorder from [facility] for eRx and Interaction Alerts* Objective: [...] M20.42 6 . U nspecified atherosclerosis of [place] arteries of extremities, bilateral legs - I70.203 [...] were emphasized. 3. U nspecified atherosclerosis of [place] arteries of extremities, bilateral legs Notes: Patient [...] Information: * Visit Code: * Procedure Codes: 66153 DEBRIDE NAIL, 6 OR MORE. Modifiers: Q8 * CURER Sign off status: Completed true * Provider: Livan PEREZ Date: 03/23/2023 Generated for Rigoberto smith/Adali/Sharon on: 0 07/07/2024 02:58 PM CDT History and Physical Notes * [...]
--- OUTSIDE RECORDS SUMMARY | 2024-07-07 14:59 | XMS_ITS ---
Author Organization [facility] Address [address] [place], [place] [address] Care Team Providers Care Traffic Sign Supervisor Name Role Phone CHI GIBSON Unavailable [phone] Jonathon Nguyen Unavailable Unavailable BILL PEREZ Unavailable [phone] REASON FOR VISIT *General care Medications Medication SIG (Take, Route, Frequency, Duration) Notes Start Date End Date Status aspirin 81 MG Delayed Release Oral Tablet [InTown Aspirin] ORAL aspirin 81 MG Delayed Release Oral Tablet [InTown Aspirin]Original Medicationaspirin 81 MG Delayed Release Oral Tablet [InTown Aspirin] *Reorder from [employer] for eRx and Interaction Alerts* 07/20/2012 Active chondroitin sulfates 250 MG Oral Capsule ORAL chondroitin sulfates 250 MG Oral CapsuleOriginal Medicationchondroitin sulfates 250 MG Oral Capsule *Reorder from [employer] for eRx and Interaction Alerts* 07/20/2012 Active Glucosamine Sulfate 500 MG Oral Tablet ORAL glucosamine sulfate 500 MG Oral TabletOriginal Medicationglucosamine sulfate 500 MG Oral Tablet *Reorder from [employer] for eRx and Interaction Alerts* 07/20/2012 Active Magnesium Gluconate 550 MG Oral Tablet ORAL magnesium gluconate 550 MG Oral TabletOriginal Medicationmagnesium gluconate 550 MG Oral Tablet *Reorder from [employer] for eRx and Interaction Alerts* 07/20/2012 Active Encounters Encounter Location Date Provider Diagnosis [address] [id number] 11/13/2023 BILL PEREZ Tinea unguium B35.1 ; Pain in right toe(s) M79.674 ; Pain in left toe(s) M79.675 ; Other hammer toe(s) (acquired), right foot M20.41 ; Other hammer toe(s) (acquired), left foot M20.42 ; Unspecified atherosclerosis of [place] arteries of extremities, bilateral legs I70.203 and [...] (ICD-10 - M20.42) 11/13/2023 Unspecified atherosclerosis of [place] arteries of extremities, bilateral legs (ICD-10 - [...] conservative options were emphasized. Unspecified atherosclerosis of [place] arteries of extremities, bilateral legs Patient educated [...] CICI HUTCHINSON KDOB:[birth year] (78 yo F)Acc No.[id number]:11/13/2023 Patient: CICI DEAN Provider: Livan PEREZ :1945 A ge:78 Y S ex:Female Date:11/13/2023 Address:[address] [place] [address], [place] [address] Subjective: * Chief Complaints: * 1 . *General care. * HPI: H PI: General care P atient presents to the office for diabetic foot care. Patient states that their nails are thickened, elongated and painful. Patient states that it is aggravated by shoe gear. Onset is gradual., Patient denies taking blood thinners., Date last seen by Dr. Nguyen was 10/2023., Initials [facility]. * ROS: G eneral / Constitutional: Patient denies w eakness. R espiratory: Patient denies c hronic cough, shortness of breath, sputum production. C ardiovascular: Patient denies c hest pain, history of NV, irregular heartbeat. M usculoskeletal: Patient complains of [...] gluconate 550 MG Oral Tablet *Reorder from [employer] for eRx and Interaction Alerts*, Taking Glucosamine Sulfate 500 MG Oral Tablet ORAL , Notes to Pharmacist: glucosamine sulfate 500 MG Oral TabletOriginal Medicationglucosamine sulfate 500 MG Oral Tablet *Reorder from [facility] for eRx and Interaction Alerts*, Taking aspirin 81 MG Delayed Release Oral Tablet [InTown Aspirin] ORAL , Notes to Pharmacist: aspirin 81 MG Delayed Release Oral Tablet [InTown Aspirin]Original Medicationaspirin 81 MG Delayed Release Oral Tablet [InTown Aspirin] *Reorder from [facility] for eRx and Interaction Alerts*, Taking chondroitin sulfates 250 MG Oral Capsule ORAL , Notes to Pharmacist: chondroitin sulfates 250 MG Oral CapsuleOriginal Medicationchondroitin sulfates 250 MG Oral Capsule *Reorder from [facility] for eRx and Interaction Alerts* Objective: [...] M20.42 6 . U nspecified atherosclerosis of [place] arteries of extremities, bilateral legs - I70.203 [...] were emphasized. 3. U nspecified atherosclerosis of [place] arteries of extremities, bilateral legs Notes: Patient [...] Information: * Visit Code: * Procedure Codes: 72695 DEBRIDE NAIL, 6 OR MORE. Modifiers: Q8 * Sign off status: Completed true * Provider: Livan PEREZ Date: 0 11/13/2023 Generated for Rigoberto smith/Adali/Sharon on: 0 07/07/2024 [...]
[2024-07-07 15:12] LABS: Basophils Absolute Auto 0.05 K/mm3 (0.00-0.10); Basophils Percent Auto 0.8 % (0.0-1.0); Eosinophils Absolute Auto 0.44 K/mm3 (0.02-0.50); Eosinophils Percent Auto 6.7 % (1.0-6.0); Hematocrit 24.8 % (35.0-42.0); Hemoglobin 7.8 g/dL (11.7-13.8); Immature Granulocyte Absolute 0.03 K/mm3 (0.00-0.00); Immature Granulocyte Percent A 0.5 % (0.0-0.0); Immature Platelet Fraction Pct 1.9 % (1.0-7.0); Lymphocytes Absolute Auto 0.79 K/mm3 (1.10-4.50); Lymphocytes Percent Auto 12.1 % (18.0-42.0); Mean Corpuscular HGB Conc 31.5 g/dL (32-36); Mean Corpuscular Hemoglobin 28.7 pg (27.0-31.0); Mean Corpuscular Volume 91.2 fL (78.0-102.0); Monocytes Absolute Auto 0.43 K/mm3 (0.10-0.90); Monocytes Percent Auto 6.6 % (2.0-11.0); Neutrophils Percent Auto 73.3 % (50.0-70.0); Platelet Count Result 70 K/mm3 (150-420); Red Blood Count 2.72 M/mm3 (4.20-5.40); Red Cell Distribution Width 18.2 % (11.6-14.4); White Blood Count 6.5 K/mm3 (4.8-10.8)
[2024-07-07 15:37] LABS: Alanine Aminotransferase 25 U/L (6-35); Albumin Level 2.9 g/dL (3.5-5.1); Alkaline Phosphatase 200 U/L (38-126); Anion Gap 5 mmol/L (4-12); Aspartate Amino Transferase 46 U/L (14-36); Blood Urea Nitrogen 14 mg/dL (7-17); Calcium 8.1 mg/dL (8.4-10.2); Carbon Dioxide 25 mmol/L (22-30); Chloride 104 mmol/L (98-107); Estimated Glomerular Filt Rate > 60; Glucose 251 mg/dL (65-110); Hemoglobin A1C 9.3 % (<5.7); Osmolality Calculated 286 mOsm/kg (285-295); Potassium 3.6 mmol/L (3.4-5.0); Sodium 134 mmol/L (137-145); Total Protein 5.8 g/dL (6.3-8.2)
== END 2024-07-07 14:50 | disposition home or self-care (01) ==
LOC: CHSLAB 14:54
PROVIDERS: PCP Internal Medicine; Visit Provider Internal Medicine
DX: E11.9 Type 2 diabetes mellitus without complications (principal); I10 Essential (primary) hypertension; N18.30 Chronic kidney disease, stage 3 unspecified
CPT/HCPCS: 36415; 80053; 83036; 84443; 85025; 85055; 86850; 86880; 86900; 86901; 86902

== ENCOUNTER 2024-07-29 15:10 | Outpatient (CLI) | payer MEDICARE, SELFPAY ==
--- OUTSIDE RECORDS SUMMARY | 2024-07-29 15:15 | XMS_ITS | Patient Health Record ---
Author Organization [facility] Address [address] [place], [place] [id number] Care Team Providers Care Abrasive Worker Name Role Phone CHI GIBSON Unavailable [phone] WendyJonathon clay Unavailable Unavailable ESTHELAJEMAL COELLOUR Unavailable [phone] CLIF IRIZARRY Unavailable [phone] Allergies No Known Allergies Reason For Referral No Information Medications Medication SIG (Take, Route, Frequency, Duration) Notes Start Date End Date Status aspirin 81 MG Delayed Release Oral Tablet [Five9 Aspirin] ORAL aspirin 81 MG Delayed Release Oral Tablet [Five9 Aspirin]Original Medicationaspirin 81 MG Delayed Release Oral Tablet [Five9 Aspirin] *Reorder from [employer] for eRx and Interaction Alerts* 07/20/2012 Active Glucosamine Sulfate 500 MG Oral Tablet ORAL glucosamine sulfate 500 MG Oral TabletOriginal Medicationglucosamine sulfate 500 MG Oral Tablet *Reorder from [employer] for eRx and Interaction Alerts* 07/20/2012 Active chondroitin sulfates 250 MG Oral Capsule ORAL chondroitin sulfates 250 MG Oral CapsuleOriginal Medicationchondroitin sulfates 250 MG Oral Capsule *Reorder from [employer] for eRx and Interaction Alerts* 07/20/2012 Active Magnesium Gluconate 550 MG Oral Tablet ORAL magnesium gluconate 550 MG Oral TabletOriginal Medicationmagnesium gluconate 550 MG Oral Tablet *Reorder from [employer] for eRx and Interaction Alerts* 07/20/2012 Active Immunizations Vaccine Route Administration Date Status Comme nts Influenza, high dose seasonal Unknown 12/19/2022 Admini stered Vital Signs Height-cm 149.86 cm 07/29/2024 Weight-kg 69.85 kg 07/29/2024 Height 59.00 in 07/29/2024 Weight 154 lbs 07/29/2024 BMI 31.1 kg/m2 07/29/2024 Encounters Encounter Location Date Provider Diagnosis [address] [id number] 07/29/2024 CLIF IRIZARRY Tinea unguium B35.1 ; Unspecified atherosclerosis of prairie band arteries of extremities, bilateral legs I70.203 and Type 2 diabetes mellitus with other circulatory complications E11.[address] [id number] 09/11/2023 BILL PEREZ Tinea unguium B35.1 ; Pain in right toe(s) M79.674 ; Pain in left toe(s) M79.675 ; Other hammer toe(s) (acquired), right foot M20.41 ; Other hammer toe(s) (acquired), left foot M20.42 ; Unspecified atherosclerosis of prairie band arteries of extremities, bilateral legs I70.203 and Type 2 diabetes mellitus with other circulatory complications E11.[address] [id number] 11/13/2023 BILL PEREZ Tinea unguium B35.1 ; Pain in right toe(s) M79.674 ; Pain in left toe(s) M79.675 ; Other hammer toe(s) (acquired), right foot M20.41 ; Other hammer toe(s) (acquired), left foot M20.42 ; Unspecified atherosclerosis of prairie band arteries of extremities, bilateral legs I70.203 and Type 2 diabetes mellitus with other circulatory complications E11.59 [facility] [address] [place], [place] [id number] 01/22/2024 BILL PEREZ Tinea unguium B35.1 ; Pain in right toe(s) M79.674 ; Pain in left toe(s) M79.675 ; Other hammer toe(s) (acquired), right foot M20.41 ; Other hammer toe(s) (acquired), left foot M20.42 ; Unspecified atherosclerosis of prairie band arteries of extremities, bilateral legs I70.203 and [...] in right toe(s) (ICD-10 - M79.674) 07/29/2024 Tinea unguium (ICD-10 - B35.1) Aseptic [...] OTC and prescription treatments. 01/22/2024 Pain in left toe(s) (ICD-10 - [...] (ICD-10 - M20.42) 09/11/2023 Unspecified atherosclerosis of prairie band arteries of extremities, 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) Patient educated on risks and aggravating factors of PVD, including conservative treatment options such as a diet and exercise regimen to aid in slowing progression of vascular disease 11/13/2023 Unspecified atherosclerosis of prairie band arteries of extremities, 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) Patient educated on risks and aggravating factors of PVD, including conservative treatment options such as a diet and exercise regimen to aid in slowing progression of vascular disease 01/22/2024 Unspecified atherosclerosis of prairie band arteries of extremities, 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) Patient educated on risks and aggravating factors of PVD, including conservative treatment options such as a diet and exercise regimen to aid in slowing progression of vascular disease 07/29/2024 Unspecified atherosclerosis of prairie band arteries of extremities, bilateral legs (ICD-10 - [...] but not limited to nausea, vomiting, fever. 01/22/2024 Type 2 diabetes mellitus with other [...] Plan Of Treatment Next Appt Details Provider Name:CLIF CEVALLOS, 10/07/2024 02:10:00 PM, [address] [place] [address], [id number], Insurance Providers Payer Name Payer Address Payer Phone Subscriber Number Group Number Insured Name Patient Relationship to Insured Coverage Start Date Coverage End Date Medicare Part B [place] [address] [place] [address] [id number] CICI HUTCHINSON Self - patient is the insured [facility] Life Paper Claim [address] [address] [place] [address] [id number] CICI HUTCHINSON Self - patient is the insured
--- OUTSIDE RECORDS SUMMARY | 2024-07-29 15:15 | XMS_ITS ---
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 Name Role Phone CHI GIBSON Unavailable [phone] Jonathon Nguyen Unavailable Unavailable REASON FOR VISIT *General care Encounters Encounter Location Date Provider Diagnosis [address] [id number] 04/22/2024 CHI GIBSON Plan Of Treatment Next Appt Details Provider Name:CLIF CEVALLOS, 10/07/2024 02:10:00 PM, [address] [place] [address], [id number], Progress Notes * CICI HUTCHINSON KDOB:[birth year] (79 yo F)Acc No.[id number]:04/22/2024 Patient: Arleth RUYCICI Provider: Andres Gibson DPM :1945 A ge:78 Y S ex:Female Date:04/22/2024 Address:[address] [place] [address], [address] Subjective: * Chief Complaints: * 1 . *General care. * Medical History: Objective: * Vitals: Assessment: Plan: * Treatment: * Billing Information: * Visit Code: * Procedure Codes: * Electronic signature of CHI GIBSON DPM on 07/29/2024 at 03:15 PM CDT Sign off status: Pending * Provider: Andres Gibson DPM Date: 0 04/22/2024 Generated for Rigoberto smith/Adali/Ronyitting on: 0 07/29/2024 03:15 PM CDT
--- OUTSIDE RECORDS SUMMARY | 2024-07-29 15:15 | XMS_ITS | Data Portability ---
Author Organization [place] [facility] [address], Main Office Address [address] [place] [address] Care Team Providers Care Jewelry Racker Name Role Phone KEANU SANTIAGO Primary Care Provider KEANU SANTIAGO Referring Provider [phone] Assessment Encounter Date Assessment Date Assessment LastModified [...] more than half the time spent in odtm-zc-hjsl care. Not available 02/01/2023 14:31:51 03/07/2023 03/07/2023 [...] spent treatment patient more half of this rmob-rf-nlve conversation Not available 03/07/2023 12:20:35 03/28/2023 03/28/2023 [...] knee 024 03/28/19 24 [email or web address] [facility] [place], [address], [place], [address], 4 16:37:40 XR, knee 024 03/07/19 24 [email or web address] [facility] [place], [address], [place], [address], 4 12:21:50 Medication Orders None record ed. Patient TargetsNo targets recorded. Patient InstructionsNo instructions recorded. Reason for Referral None Reported. Results Created Date Observation Date Name Description Value Unit Range Abnormal Flag Note LastModifiedBy Organization Detail LastModifiedTime 06/07/19 22 XR, hand No observ ation record ed. [id number] [facility] [place] [address], [place], [address], 05/02/2022 01:01:26 06/07/19 22 XR, shoul karlie No observ ation record ed. [id number] [facility] [place] [address], [place], [address], 05/02/2022 01:01:26 06/21/19 22 XR, humer us No observ ation record ed. [id number] [facility] [place] [address], [place], [address], 05/02/2022 01:01:26 07/05/19 22 XR, hand No observ ation record ed. [id number] [facility] [place] [address], [place], [address], 05/02/2022 01:01:26 07/05/19 22 XR, shoul karlie No observ ation record ed. [id number] [facility] [place] [address], [place], [address], 05/02/2022 01:01:26 07/28/19 22 07/27/2021 XR, shoul karlie No observ ation record ed. [id number] [facility] [place] [address], [place], [address], 05/02/2022 01:01:26 01/30/20 23 XR, knee No observ ation record ed. Not Available 2022 16:59:15 03/07/19 24 XR, knee No observ ation record ed. [facility] [place] [address], [place], [address], 03/07/2023 12:18:44 03/28/19 24 XR, knee No observ ation record ed. [facility] [place] [address], [place], [address], 03/28/2023 16:31:08 Result Notes None recorded. Problems Name Problem SNOMED Code Status Onset Date Resolution Date Notes Provider Name and Address Organization Details Recorded Time Pain of right shoulder joint 45215954835353 100 Active 2021 Not Available [facility] 3 00:59:39 Fracture of phalanx of finger 65403549 Active 2021 Not Available Counts include 234 beds at the [facility] 3 00:59:39 Pain of left hand 80656663173481 3 Active 2021 Not Available Counts include 234 beds at the [facility] 3 00:59:39 Closed fracture of upper end of humerus 09304949 Active 2021 Not Available Counts include 234 beds at the [facility] 3 00:59:40 Pain of right knee joint 00813684380238 0 Active 2022 NAPOLEON Wan, [facility] 3 12:25:42 Fracture of ankle 06831926 Active 2023 NAPOLEON Wan null, [facility] 4 10:58:49 Closed fracture of right patella 43273712850272 100 Active 2023 MONA Red [address] [place] [address], [facility] [address], [place], [address] , [facility] 4 11:35:53 Problem Notes None recorded. Procedures Surgical History Date Name Laterality Status Provider Name and Address Organization Details Recorded Time Breast Surgery completed Not Available [facility] 05/02/2022 00:58:24 procedure on hand completed Not Available Counts include 234 beds at the [facility] 05/02/2022 00:58:24 Cataract Surgery completed Not Available Counts include 234 beds at the [facility] 05/02/2022 00:58:24 Imaging Results None recorded. Procedure Notes None recorded. Medical Equipment None [...] Details Last Updated DateTime 03/07/2023 144.78 cm NAPOLEON Wan [facility] 03/07/2023 10:57:14 Date Recorded Body height Provider Name an d Address Organization Details Last Updated DateTime 03/28/2023 144.78 cm Michela Varner [facility] 03/28/2023 14:13:14 Date Recorded Body height Provider Name an d Address Organization Details Last Updated DateTime 07/04/2021 144.78 cm Not Available Counts include 234 beds at the [facility] 00:58:55 Date Recorded Body height Provider Name an d Address Organization Details Last Updated DateTime 07/27/2021 144.78 cm Not Available Counts include 234 beds at the [facility] 00:58:55 Date Recorded Body height Body mass index (BMI) Body weight Provider Name and Address Organization Details Last Updated DateTime 01/31/2023 144.78 cm 32.9 kg/m2 98441.04 g Krys Campos Mary Jo [facility] 01/31/2023 12:39:06 Social History None recorded. Functional Status Question Answer Note LastModified by Organizat ion Details LastModified Time What is your level of alcohol consumption? None [id number] Information not available 05/02/2022 Mental Status None recorded. Family History Relationship Description Onset Age of this Age Resolved Age Notes LastModified by Organization Details LastModified Time Father Hypertensive disorder [id number] Not available 05/02/2022 00:58:26 Father Diabetes mellitus [id number] Not available 05/02/2022 00:58:26 Mother Hypertensive disorder [id number] Not available 05/02/2022 00:58:26 Mother Diabetes mellitus [id number] Not available 05/02/2022 00:58:26 Medical History Condition [...] FOOT PROBLEM N HEART VALVE DISORDERS N SOFT TISSUE INJURY N ALLERGIES/HAYFEVER N INFECTIOUS DISEASE N HEART ARRHYTHMIA N INSOMNIA N RHEUMATOID ARTHRITIS N HIGH CHOLESTEROL / HYPERLIPIDEMIA N EDEMA N CHRONIC PAIN SYNDROME N CAROTID BLOCKAGE N BACK / NECK PROBLEMS N HAVE YOU BEEN HOSPITALIZED OR SEEN IN [facility] IN THE PAST YEAR ? [...] SNOMED-CT Code Diagnosis ICD10 Code Diagnosis Note [id number] [facility] [place] [address] [place] [address] 05/23/2021 00:00:00 05/27/2021 12:10:32 [id number] Christian Olsen MD [facility] [place] [address] [place] [address] 06/06/2021 00:00:00 06/06/2021 14:59:59 [id number] [facility] [place] [address] [place] [address] 06/20/2021 00:00:00 06/20/2021 10:31:52 [id number] Christian Olsen MD [facility] [place] [address] [place] [address] 07/04/2021 00:00:00 07/04/2021 17:33:55 [id number] Christian Olsen MD [facility] [place] [address] [place] [address] 07/27/2021 00:00:00 07/30/2021 17:54:03 [id number] Christian Olsen MD [facility] [place] [address] [place] [address] 01/31/2023 12:01:28 02/03/2023 10:53:27 Pain of right knee joint 9545920143 42601 M25.547 [id number] Christian Olsen MD [facility] [place] [address] [place] [address] 03/07/2023 10:46:53 03/07/2023 12:21:50 Closed fracture of right patella 8425687492 [id number] S82.001A [id number] Christian Olsen MD [facility] [place] [address] [place] [address] 03/28/2023 14:03:48 03/28/2023 16:37:40 Pain of right knee joint 0232973989 89845 M25.561 Health Concerns Section Related Observation LastModified by Organization Detai ls LastModified Time None Recorded Concern Status LastModified by Organization Details LastModified Time None Recorded Advance Directives Directive None Recorded Payers Encounter Date Sequence Insurance Name Policy Number Policy Guerrero Covered Member ID Guerrero Member ID Guarantor Name 01/31/2023 1 [place] Elayne Salmeron [id number] Elayne Salmeron 01/31/2023 2 [employer] LIFE (MEDICARE SUPPLEMENT) Elayne Salmeron [id number] Elayne Salmeron 03/07/2023 1 [place] Elayne Salmeron [id number] Elayne Salmeron 03/07/2023 2 [employer] LIFE (MEDICARE SUPPLEMENT) Elayne Salmeron [id number] Elayne Salmeron 03/28/2023 1 [place] Elayne Salmeron [id number] Elayne Salmeron 03/28/2023 2 [employer] LIFE (MEDICARE SUPPLEMENT) Elayne Salmeron [id number] Elayne Salmeron Notes Date Note Type Note [...] with her son today. Christian Olsen MD [address] [place] [address], [place] [address], [place], [address], [facility] [address] [place] 02/01/2023 14:32:04 OBGyn Episode No OBEpisode recorded.
[2024-07-29 15:32] LABS: Basophils Absolute Auto 0.03 K/mm3 (0.00-0.10); Basophils Percent Auto 0.5 % (0.0-1.0); Eosinophils Absolute Auto 0.37 K/mm3 (0.02-0.50); Eosinophils Percent Auto 6.6 % (1.0-6.0); Hematocrit 25.1 % (35.0-42.0); Hemoglobin 7.8 g/dL (11.7-13.8); Immature Granulocyte Absolute 0.01 K/mm3 (0.00-0.00); Immature Granulocyte Percent A 0.2 % (0.0-0.0); Lymphocytes Absolute Auto 0.64 K/mm3 (1.10-4.50); Lymphocytes Percent Auto 11.4 % (18.0-42.0); Mean Corpuscular HGB Conc 31.1 g/dL (32-36); Mean Platelet Volume 10.2 fl (9.2-11.8); Monocytes Absolute Auto 0.38 K/mm3 (0.10-0.90); Monocytes Percent Auto 6.8 % (2.0-11.0); Neutrophils Absolute Auto 4.16 K/mm3 (1.70-7.20); Neutrophils Percent Auto 74.5 % (50.0-70.0); Platelet Count Result 57 K/mm3 (150-420); Red Blood Count 2.79 M/mm3 (4.20-5.40); Red Cell Distribution Width 17.2 % (11.6-14.4); White Blood Count 5.6 K/mm3 (4.8-10.8)
[2024-07-29 16:28] LABS: Alanine Aminotransferase 14 U/L (6-35); Albumin Level 3.4 g/dL (3.5-5.1); Alkaline Phosphatase 102 U/L (38-126); Anion Gap 6 mmol/L (4-12); Aspartate Amino Transferase 33 U/L (14-36); Bilirubin,Total 0.9 mg/dL (0.2-1.3); Blood Urea Nitrogen 12 mg/dL (7-17); Calcium 8.5 mg/dL (8.4-10.2); Carbon Dioxide 27 mmol/L (22-30); Chloride 98 mmol/L (98-107); Estimated Glomerular Filt Rate > 60; Glucose 285 mg/dL (65-110); Osmolality Calculated 281 mOsm/kg (285-295); Potassium 3.1 mmol/L (3.4-5.0); Sodium 131 mmol/L (137-145); Total Protein 6.2 g/dL (6.3-8.2)
== END 2024-07-29 15:11 | disposition home or self-care (01) ==
PROVIDERS: PCP Internal Medicine; Visit Provider Internal Medicine Hematology
DX: C91.10 Chronic lymphocytic leukemia of B-cell type not having achieved remission (principal)
CPT/HCPCS: 36415; 80053; 85025; 85055; 86850; 86880; 86900; 86901; 86902

== ENCOUNTER 2024-08-12 12:58 | Outpatient (CLI) | payer MEDICARE, SELFPAY ==
--- OUTSIDE RECORDS SUMMARY | 2024-08-12 13:34 | XMS_ITS | Patient Health Record ---
Author Organization [facility] Address [address] [place], [place] [address] Care Team Providers Care Bill Hiker Name Role Phone CHI GIBSON Unavailable [phone] WendyJonathon clay Unavailable Unavailable ESTHELAJEMAL COELLOUR Unavailable [phone] CLIF IRIZARRY Unavailable [phone] Allergies No Known Allergies Reason For Referral No Information Medications Medication SIG (Take, Route, Frequency, Duration) Notes Start Date End Date Status aspirin 81 MG Delayed Release Oral Tablet [Stageit Aspirin] ORAL aspirin 81 MG Delayed Release Oral Tablet [Stageit Aspirin]Original Medicationaspirin 81 MG Delayed Release Oral Tablet [Stageit Aspirin] *Reorder from [employer] for eRx and Interaction Alerts* 07/20/2012 Active Glucosamine Sulfate 500 MG Oral Tablet ORAL glucosamine sulfate 500 MG Oral TabletOriginal Medicationglucosamine sulfate 500 MG Oral Tablet *Reorder from [employer] for eRx and Interaction Alerts* 07/20/2012 Active chondroitin sulfates 250 MG Oral Capsule ORAL chondroitin sulfates 250 MG Oral CapsuleOriginal Medicationchondroitin sulfates 250 MG Oral Capsule *Reorder from [employer] for eRx and Interaction Alerts* 07/20/2012 Active Magnesium Gluconate 550 MG Oral Tablet ORAL magnesium gluconate 550 MG Oral TabletOriginal Medicationmagnesium gluconate 550 MG Oral Tablet *Reorder from [employer] for eRx and Interaction Alerts* 07/20/2012 Active Immunizations Vaccine Route Administration Date Status Comme nts Influenza, high dose seasonal Unknown 12/19/2022 Admini stered Vital Signs Height-cm 149.86 cm 07/29/2024 Weight-kg 69.85 kg 07/29/2024 Height 59.00 in 07/29/2024 Weight 154 lbs 07/29/2024 BMI 31.1 kg/m2 07/29/2024 Encounters Encounter Location Date Provider Diagnosis [address] [id number] 07/29/2024 CLIF IRIZARRY Tinea unguium B35.1 ; 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, bilateral legs I70.203 and Type 2 diabetes mellitus with other circulatory complications E11.[address] [id number] 09/11/2023 BILL PEREZ Tinea unguium B35.1 ; Pain in right toe(s) M79.674 ; Pain in left toe(s) M79.675 ; Other hammer toe(s) (acquired), right foot M20.41 ; Other hammer toe(s) (acquired), left foot M20.42 ; 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, bilateral legs I70.203 and Type 2 diabetes mellitus with other circulatory complications E11.[address] [id number] 11/13/2023 BILL PEREZ Tinea unguium B35.1 ; Pain in right toe(s) M79.674 ; Pain in left toe(s) M79.675 ; Other hammer toe(s) (acquired), right foot M20.41 ; Other hammer toe(s) (acquired), left foot M20.42 ; 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, bilateral legs I70.203 and Type 2 diabetes mellitus with other circulatory complications E11.59 [facility] [address] [place], [place] [id number] 01/22/2024 BILL PEREZ Tinea unguium B35.1 ; Pain in right toe(s) M79.674 ; Pain in left toe(s) M79.675 ; Other hammer toe(s) (acquired), right foot M20.41 ; Other hammer toe(s) (acquired), left foot M20.42 ; 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, bilateral legs I70.203 and [...] (ICD-10 - M20.42) 09/11/2023 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, 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) Patient educated on risks and aggravating factors of PVD, including conservative treatment options such as a diet and exercise regimen to aid in slowing progression of vascular disease 11/13/2023 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, 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) Patient educated on risks and aggravating factors of PVD, including conservative treatment options such as a diet and exercise regimen to aid in slowing progression of vascular disease 01/22/2024 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, 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) Patient educated on risks and aggravating factors of PVD, including conservative treatment options such as a diet and exercise regimen to aid in slowing progression of vascular disease 07/29/2024 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
--- OUTSIDE RECORDS SUMMARY | 2024-08-12 13:34 | XMS_ITS | Data Portability ---
Author Organization [place] [facility] [email or web address], Main Office Address [address] [place] [address] Care Team Providers Care Technical Adjuster Name Role Phone KEANU SANTIAGO Primary Care Provider KEANU SANTIAGO Referring Provider [phone] Assessment Encounter Date Assessment Date Assessment LastModified [...] more than half the time spent in gbje-id-bvle care. Not available 02/01/2023 14:31:51 03/07/2023 03/07/2023 [...] spent treatment patient more half of this wkkl-vv-gdet conversation Not available 03/07/2023 12:20:35 03/28/2023 03/28/2023 [...] knee 024 03/28/19 24 [email or web address] [facility] [place], [address], [place], [address], 4 16:37:40 XR, knee 024 03/07/19 24 [email or web address] [facility] [place], [address], [place], [address], 4 12:21:50 Medication Orders None record ed. Patient TargetsNo targets recorded. Patient InstructionsNo instructions recorded. Reason for Referral None Reported. Results Created Date Observation Date Name Description Value Unit Range Abnormal Flag Note LastModifiedBy Organization Detail LastModifiedTime 06/07/19 22 XR, hand No observ ation record ed. [id number] [facility] [place] [address], [place], [address], 05/02/2022 01:01:26 06/07/19 22 XR, shoul karlie No observ ation record ed. [id number] [facility] [place] [address], [place], [address], 05/02/2022 01:01:26 06/21/19 22 XR, humer us No observ ation record ed. [id number] [facility] [place] [address], [place], [address], 05/02/2022 01:01:26 07/05/19 22 XR, hand No observ ation record ed. [id number] [facility] [place] [address], [place], [address], 05/02/2022 01:01:26 07/05/19 22 XR, shoul karlie No observ ation record ed. [id number] [facility] [place] [address], [place], [address], 05/02/2022 01:01:26 07/28/19 22 07/27/2021 XR, shoul karlie No observ ation record ed. [id number] [facility] [place] [address], [place], [address], 05/02/2022 01:01:26 01/30/20 23 XR, knee No observ ation record ed. [email or web address] Not Available 2022 16:59:15 03/07/19 24 XR, knee No observ ation record ed. [facility] [place] [address], [place], [address], 03/07/2023 12:18:44 03/28/19 24 XR, knee No observ ation record ed. [facility] [place] [address], [place], [address], 03/28/2023 16:31:08 Result Notes None recorded. Problems Name Problem SNOMED Code Status Onset Date Resolution Date Notes Provider Name and Address Organization Details Recorded Time Pain of right shoulder joint 26454460927074 100 Active 2021 Not Available [employer] 3 00:59:39 Fracture of phalanx of finger 97372254 Active 2021 Not Available [facility] 3 00:59:39 Pain of left hand 41041272805200 3 Active 2021 Not Available [facility] 3 00:59:39 Closed fracture of upper end of humerus 26028600 Active 2021 Not Available [facility] 3 00:59:40 Pain of right knee joint 10371270309183 0 Active 2022 NAPOLEON Wan, [facility] 3 12:25:42 Fracture of ankle 96718300 Active 2023 NAPOLEON Wan null, [facility] 4 10:58:49 Closed fracture of right patella 83407936053531 100 Active 2023 MONA Red [address] [place] [address], [facility] [address], [place], [address] , [facility] 4 11:35:53 Problem Notes None recorded. Procedures Surgical History Date Name Laterality Status Provider Name and Address Organization Details Recorded Time Breast Surgery completed Not Available [facility] 05/02/2022 00:58:24 procedure on hand completed Not Available [facility] 05/02/2022 00:58:24 Cataract Surgery completed Not Available [facility] 05/02/2022 00:58:24 Imaging Results None recorded. Procedure [...] Updated DateTime 03/07/2023 144.78 cm NAPOLEON Wan [facility] [employer] [facility] 03/07/2023 10:57:14 Date Recorded Body height Provider Name an d Address Organization Details Last Updated DateTime 03/28/2023 144.78 cm Michela Varner [facility] [employer] [facility] 03/28/2023 14:13:14 Date Recorded Body height Provider Name an d Address Organization Details Last Updated DateTime 07/04/2021 144.78 cm Not Available [facility] 00:58:55 Date Recorded Body height Provider Name an d Address Organization Details Last Updated DateTime 07/27/2021 144.78 cm Not Available [facility] 00:58:55 Date Recorded Body height Body mass index (BMI) Body weight Provider Name and Address Organization Details Last Updated DateTime 01/31/2023 144.78 cm 32.9 kg/m2 21654.04 g Krys Campos [facility] 01/31/2023 12:39:06 Social History None recorded. Functional Status Question Answer Note LastModified by Organizat ion Details LastModified Time What is your level of alcohol consumption? None [id number] Information not available 05/02/2022 Mental Status None recorded. Family History Relationship Description Onset Age of this Age Resolved Age Notes LastModified by Organization Details LastModified Time Father Hypertensive disorder [id number] Not available 05/02/2022 00:58:26 Father Diabetes mellitus [id number] Not available 05/02/2022 00:58:26 Mother Hypertensive disorder [id number] [id number] Not available 05/02/2022 00:58:26 Mother Diabetes mellitus [id number].177 [id number] Not available 05/02/2022 00:58:26 Medical History Condition [...] HAVE YOU BEEN HOSPITALIZED OR SEEN IN [facility] IN THE PAST YEAR ? N [...] SNOMED-CT Code Diagnosis ICD10 Code Diagnosis Note [id number] [facility] [place] [address] [place] [address] 05/23/2021 00:00:00 05/27/2021 12:10:32 [id number] Christian Olsen MD [facility] [place] [address] [place] [address] 06/06/2021 00:00:00 06/06/2021 14:59:59 [id number] [facility] [place] [address] [place] [address] 06/20/2021 00:00:00 06/20/2021 10:31:52 [id number] Christian Olsen MD [facility] [place] [address] [place] [address] 07/04/2021 00:00:00 07/04/2021 17:33:55 [id number] Christian Olsen MD [facility] [place] [address] [place] [address] 07/27/2021 00:00:00 07/30/2021 17:54:03 [id number] Christian Olsen MD [facility] [place] [address] [place] [address] 01/31/2023 12:01:28 02/03/2023 10:53:27 Pain of right knee joint 0198301009 79658 M25.928 [id number] Christian Olsen MD [facility] [place] [address] [place] [address] 03/07/2023 10:46:53 03/07/2023 12:21:50 Closed fracture of right patella 7733856708 0581978 S82.001A [id number] Christian Olsen MD [facility] [place] [address] [place] [address] 03/28/2023 14:03:48 03/28/2023 16:37:40 Pain of right knee joint 2849821473 31507 M25.561 Health Concerns Section Related Observation LastModified by Organization Detai ls LastModified Time None Recorded Concern Status LastModified by Organization Details LastModified Time None Recorded Advance Directives Directive None Recorded Payers Insurance Date Sequence Insurance Name Policy Number Policy Guerrero Covered Member ID Guerrero Member ID Guarantor Name 06/02/2023 1 [place] Elayne Salmeron [id number] Elayne Salmeron 06/02/2023 2 [employer] (MEDICARE SUPPLEMENT) Elayne Salmeron [id number] Elayne Salmeron 06/02/2023 [employer] - DMEPOS ASSIGNED (MEDICARE DME REGION B) Elayne Salmeron [id number] Elayne Salmeron Notes Date Note Type Note [...] with her son today. Christian Olsen MD [address] [place] [address], [place], [address], [place] [email or web address] 02/01/2023 14:32:04 OBGyn Episode No OBEpisode recorded.
--- OUTSIDE RECORDS SUMMARY | 2024-08-12 13:35 | XMS_ITS ---
Author Organization [facility] Address [address] [place], [place] [id number] Care Team Providers Care Live Ammunition Inspector Name Role Phone CHI GIBSON Unavailable [phone] Jonathon Nguyen Unavailable Unavailable REASON FOR VISIT *General care Encounters Encounter Location Date Provider Diagnosis [address] [id number] 04/22/2024 CHI GIBSON Plan Of Treatment Next Appt Details Provider Name:CLIF CEVALLOS, 10/07/2024 02:10:00 PM, [address] [place] [address], [phone], Progress Notes * CICI HUTCHINSON KDOB:[birth year] (79 yo F)Acc No.[id number]:04/22/2024 Patient: Arleth RUYCICI Provider: Andres Gibson DPM :1945 A ge:78 Y S ex:Female Date:04/22/2024 Address:[address] [place] [address], [address] Subjective: * Chief Complaints: * 1 . *General care. * Medical History: Objective: * Vitals: Assessment: Plan: * Treatment: * Billing Information: * Visit Code: * Procedure Codes: * Electronic signature of CHI GIBSON DPM on 08/12/2024 at 01:34 PM CDT Sign off status: Pending * Provider: Andres Gibson DPM Date: 0 04/22/2024 Generated for Rigoberto smith/Adali/Ronyitting on: 0 08/12/2024 01:34 PM CDT
--- OUTSIDE RECORDS SUMMARY | 2024-08-12 13:35 | XMS_ITS ---
Author Organization [facility] Address [address] [place], [place] [id number] Care Team Providers Care Mosaic Worker Name Role Phone CHI GIBSON Unavailable [phone] WendyEleazar clayish Unavailable Unavailable CLIF IRIZARRY Unavailable [phone] Allergies No Known Allergies REASON FOR VISIT *General care Medications Medication SIG (Take, Route, Frequency, Duration) Notes Start Date End Date Status aspirin 81 MG Delayed Release Oral Tablet [Evena Medical Aspirin] ORAL aspirin 81 MG Delayed Release Oral Tablet [Evena Medical Aspirin]Original Medicationaspirin 81 MG Delayed Release Oral Tablet [Evena Medical Aspirin] *Reorder from [employer] for eRx and Interaction Alerts* 07/20/2012 Active Glucosamine Sulfate 500 MG Oral Tablet ORAL glucosamine sulfate 500 MG Oral TabletOriginal Medicationglucosamine sulfate 500 MG Oral Tablet *Reorder from [employer] for eRx and Interaction Alerts* 07/20/2012 Active chondroitin sulfates 250 MG Oral Capsule ORAL chondroitin sulfates 250 MG Oral CapsuleOriginal Medicationchondroitin sulfates 250 MG Oral Capsule *Reorder from [employer] for eRx and Interaction Alerts* 07/20/2012 Active Magnesium Gluconate 550 MG Oral Tablet ORAL magnesium gluconate 550 MG Oral TabletOriginal Medicationmagnesium gluconate 550 MG Oral Tablet *Reorder from [employer] for eRx and Interaction Alerts* 07/20/2012 Active Vital Signs Weight 154 lbs 07/29/2024 Weight-kg 69.85 kg 07/29/2024 Height 59.00 in 07/29/2024 Height-cm 149.86 cm 07/29/2024 BMI 31.1 kg/m2 07/29/2024 Encounters Encounter Location Date Provider Diagnosis [address] [id number] 07/29/2024 CLIF IRIZARRY Tinea unguium B35.1 ; Unspecified atherosclerosis of [place] arteries of extremities, bilateral legs I70.203 and [...] regarding both OTC and prescription treatments. 07/29/2024 Unspecified atherosclerosis of [place] arteries of extremities, bilateral legs (ICD-10 - [...] OTC and prescription treatments. Unspecified atherosclerosis of [place] arteries of extremities, bilateral legs Patient educated [...] Details Follow Up: 3 Months, Reason: Provider Name:CLIF CEVALLOS, 10/07/2024 02:10:00 PM, [address] [place] [address], [id number], Progress Notes * CICI HUTCHINSON KDOB:[birth year] (79 yo F)Acc No.[id number]:07/29/2024 Patient: Arleth CICI [place] Provider: Carlos IRIZARRY :1945 A ge:79 Y S ex:Female Date:07/29/2024 Address:[address] [place] [address], [place] [address] Subjective: * Chief Complaints: * 1 . [...] gluconate 550 MG Oral Tablet *Reorder from [employer] for eRx and Interaction Alerts*, Taking Glucosamine Sulfate 500 MG Oral Tablet ORAL , Notes to Pharmacist: glucosamine sulfate 500 MG Oral TabletOriginal Medicationglucosamine sulfate 500 MG Oral Tablet *Reorder from [employer] for eRx and Interaction Alerts*, Taking aspirin 81 MG Delayed Release Oral Tablet [Evena Medical Aspirin] ORAL , Notes to Pharmacist: aspirin 81 MG Delayed Release Oral Tablet [Evena Medical Aspirin]Original Medicationaspirin 81 MG Delayed Release Oral Tablet [Evena Medical Aspirin] *Reorder from [employer] for eRx and Interaction Alerts*, Taking chondroitin sulfates 250 MG Oral Capsule ORAL , Notes to Pharmacist: chondroitin sulfates 250 MG Oral CapsuleOriginal Medicationchondroitin sulfates 250 MG Oral Capsule *Reorder from [employer] for eRx and Interaction Alerts*, Medication List [...] inea unguium - B35.1 (Primary) 2 . 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 U nspecified atherosclerosis of [place] arteries of extremities, bilateral legs Notes: Patient [...] record has been reviewed and updated. * Follow Up: 3 Months * Billing Information: * Visit Code: * Procedure Codes: * Electronic signature of AURELIO IRIZARRY DPM on 08/12/2024 at 01:35 PM CDT Sign off status: Pending * Provider: Carlos IRIZARRY Date: 0 07/29/2024 Generated for Rigoberto smith/Adali/Sharon on: 0 08/12/2024 01:35 PM CDT History and Physical Notes * [...]
[2024-08-12 13:36] LABS: Alanine Aminotransferase 11 U/L (6-35); Albumin Level 3.6 g/dL (3.5-5.1); Alkaline Phosphatase 85 U/L (38-126); Anion Gap 6 mmol/L (4-12); Aspartate Amino Transferase 27 U/L (14-36); Bilirubin,Total 0.9 mg/dL (0.2-1.3); Blood Urea Nitrogen 13 mg/dL (7-17); Calcium 8.5 mg/dL (8.4-10.2); Carbon Dioxide 27 mmol/L (22-30); Chloride 100 mmol/L (98-107); Estimated Glomerular Filt Rate > 60; Glucose 186 mg/dL (65-110); Osmolality Calculated 281 mOsm/kg (285-295); Sodium 133 mmol/L (137-145); Total Protein 6.6 g/dL (6.3-8.2)
== END 2024-08-12 12:59 | disposition home or self-care (01) ==
LOC: CHSLAB 13:01
PROVIDERS: PCP Internal Medicine; Visit Provider Internal Medicine
DX: I10 Essential (primary) hypertension (principal)
CPT/HCPCS: 36415; 80053

== ENCOUNTER 2024-08-26 15:50 | Outpatient (CLI) | payer MEDICARE, SELFPAY | END 2024-08-26 15:51 | disposition home or self-care (01) | PROVIDERS: PCP Internal Medicine; Visit Provider Internal Medicine Pulmonary Disease | DX: D83.9 Common variable immunodeficiency, unspecified (principal) | CPT/HCPCS: 36415; 86581; 86774 ==

== ENCOUNTER 2024-09-22 08:37 | Outpatient (CLI) | payer MEDICARE, SELFPAY ==
--- OUTSIDE RECORDS SUMMARY | 2024-09-22 09:00 | XMS_ITS ---
Author Organization [facility] Address [address] [place], [place] [id number] Care Team Providers Care Superintendent Factory Name Role Phone CHI GIBSON Unavailable [phone] Jonathon Nguyen Unavailable Unavailable REASON FOR VISIT *General care Encounters Encounter Location Date Provider Diagnosis [address] [id number] 04/22/2024 CHI GIBSON Plan Of Treatment Next Appt Details Provider Name:CLIF CEVALLOS, 10/07/2024 02:10:00 PM, [address] [place] [address], [phone], Progress Notes * CICI HTUCHINSON KDOB:[birth year] (79 yo F)Acc No.[id number]:04/22/2024 Patient: Arleth RUYCICI Provider: Andres Gibson DPM :1945 A ge:78 Y S ex:Female Date:04/22/2024 Address:[address] [place] [address], [address] Subjective: * Chief Complaints: * 1 . *General care. * Medical History: Objective: * Vitals: Assessment: Plan: * Treatment: * Billing Information: * Visit Code: * Procedure Codes: * Electronic signature of CHI GIBSON DPM on 09/22/2024 at 09:00 AM CDT Sign off status: Pending * Provider: Andres Gibson DPM Date: 0 04/22/2024 Generated for Rigoberto smith/Adali/Ronyitting on: 0 09/22/2024 09:00 AM CDT
--- OUTSIDE RECORDS SUMMARY | 2024-09-22 09:00 | XMS_ITS | Data Portability ---
Author Organization [place] [facility] [employer], Main Office Address [address] [place] [address] Care Team Providers Care Shaft Mechanic Name Role Phone KEANU SANTIAGO Primary Care Provider [phone] KEANU SANTIAGO Referring Provider [phone] Assessment Encounter Date Assessment Date Assessment LastModified [...] more than half the time spent in hmhy-hc-agcu care. Not available 02/01/2023 14:31:51 03/07/2023 03/07/2023 [...] spent treatment patient more half of this oltn-nv-cuke conversation Not available 03/07/2023 12:20:35 03/28/2023 03/28/2023 [...] knee 024 03/28/19 24 [email or web address] [facility] [place], [address], [place], [address], 4 16:37:40 XR, knee 024 03/07/19 24 [email or web address] [facility] [place], [address], [place], [address], 4 12:21:50 Medication Orders None record ed. Patient TargetsNo targets recorded. Patient InstructionsNo instructions recorded. Reason for Referral None Reported. Results Created Date Observation Date Name Description Value Unit Range Abnormal Flag Note LastModifiedBy Organization Detail LastModifiedTime 06/07/19 22 XR, hand No observ ation record ed. [id number] [facility] [place] [address], [place], [address], 05/02/2022 01:01:26 06/07/19 22 XR, shoul karlie No observ ation record ed. [id number] [facility] [place] [address], [place], [address], 05/02/2022 01:01:26 06/21/19 22 XR, humer us No observ ation record ed. [id number] [facility] [place] [address], [place], [address], 05/02/2022 01:01:26 07/05/19 22 XR, hand No observ ation record ed. [id number] [facility] [place] [address], [place], [address], 05/02/2022 01:01:26 07/05/19 22 XR, shoul karlie No observ ation record ed. [id number] [facility] [place] [address], [place], [address], 05/02/2022 01:01:26 07/28/19 22 07/27/2021 XR, shoul karlie No observ ation record ed. [id number] [facility] [place] [address], [place], [address], 05/02/2022 01:01:26 01/30/20 23 XR, knee No observ ation record ed. [email or web address] Not Available 2022 16:59:15 03/07/19 24 XR, knee No observ ation record ed. [facility] [place] [address], [place], [address], 03/07/2023 12:18:44 03/28/19 24 XR, knee No observ ation record ed. [facility] [place] [address], [place], [address], 03/28/2023 16:31:08 Result Notes None recorded. Problems Name Problem SNOMED Code Status Onset Date Resolution Date Notes Provider Name and Address Organization Details Recorded Time Pain of right shoulder joint 34548433126749 100 Active 2021 Not Available [employer] 3 00:59:39 Pain of left hand 55148266598772 3 Active 2021 Not Available [facility] 3 00:59:39 Fracture of phalanx of finger 89749031 Active 2021 Not Available [facility] 3 00:59:39 Closed fracture of upper end of humerus 54742872 Active 2021 Not Available [facility] 3 00:59:40 Pain of right knee joint 66510383790680 0 Active 2022 NAPOLEON Wan null, [facility] 3 12:25:42 Fracture of ankle 92728742 Active 2023 NAPOLEON Wan null, [facility] 4 10:58:49 Closed fracture of right patella 28611534728306 100 Active 2023 MONA Red [address] [place] [address], [facility] [address], [place], [address] , [facility] 4 11:35:53 Problem Notes None recorded. Procedures Surgical History Date Name Laterality Status Provider Name and Address Organization Details Recorded Time Breast Surgery completed Not Available [facility] 05/02/2022 00:58:24 procedure on hand completed Not Available [facility] 05/02/2022 00:58:24 Cataract Surgery completed Not Available [facility] 05/02/2022 00:58:24 Imaging Results None recorded. [...] TRUEplus Insulin 1 mL 30 gauge x /16 syringe active Not Available Not Available Not [...] Updated DateTime 03/07/2023 144.78 cm NAPOLEON Wan [facility] [employer] [facility] 03/07/2023 10:57:14 Date Recorded Body height Provider Name an d Address Organization Details Last Updated DateTime 03/28/2023 144.78 cm Michela Varner [facility] [employer] [facility] 03/28/2023 14:13:14 Date Recorded Body height Provider Name an d Address Organization Details Last Updated DateTime 07/04/2021 144.78 cm Not Available [facility] 3 00:58:55 Date Recorded Body height Provider Name an d Address Organization Details Last Updated DateTime 07/27/2021 144.78 cm Not Available [facility] 3 00:58:55 Date Recorded Body height Body mass index (BMI) Body weight Provider Name and Address Organization Details Last Updated DateTime 01/31/2023 144.78 cm 32.9 kg/m2 77972.04 g Krys Campos [facility] [employer] [facility] 01/31/2023 12:39:06 Social History None recorded. Functional Status Question Answer Note LastModified by Organizat ion Details LastModified Time What is your level of alcohol consumption? None [id number] Information not available 05/02/2022 Mental Status None recorded. Family History Relationship Description Onset Age of this Age Resolved Age Notes LastModified by Organization Details LastModified Time Father Hypertensive disorder [id number].305 [id number] Not available 05/02/2022 00:58:26 Father Diabetes mellitus MIGRATION.628 [id number] Not available 05/02/2022 00:58:26 Mother Hypertensive disorder MIGRATION.582 [id number] Not available 05/02/2022 00:58:26 Mother Diabetes mellitus MIGRATION.905 [id number] Not available 05/02/2022 00:58:26 Medical History Condition [...] HAVE YOU BEEN HOSPITALIZED OR SEEN IN [facility] IN THE PAST YEAR ? N [...] SNOMED-CT Code Diagnosis ICD10 Code Diagnosis Note [id number] Christian Olsen MD [facility] [place] [address] [facility] [place] [address] 05/23/2021 00:00:00 05/27/2021 12:10:32 [id number] Christian Olsen MD [facility] [place] [address] [place] [address] 06/06/2021 00:00:00 06/06/2021 14:59:59 [id number] Christian Olsen MD [facility] [place] [address] [place] [address] 06/20/2021 00:00:00 06/20/2021 10:31:52 [id number] Christian Olsen MD [facility] [place] [address] [place] [address] 07/04/2021 00:00:00 07/04/2021 17:33:55 [id number] Christian Olsen MD [facility] [place] [address] [place] [address] 07/27/2021 00:00:00 07/30/2021 17:54:03 [id number] Christian Olsen MD [facility] [place] [address] [place] [address] 01/31/2023 12:01:28 02/03/2023 10:53:27 Pain of right knee joint 5859257652 64680 M25.842 [id number] Christian Olsen MD [facility] [place] [address] [place] [address] 03/07/2023 10:46:53 03/07/2023 12:21:50 Closed fracture of right patella 0598888863 9994114 S82.001A [id number] Christian Olsen MD [facility] [place] [address] [place] [address] 03/28/2023 14:03:48 03/28/2023 16:37:40 Pain of right knee joint 1998084658 25298 M25.561 Health Concerns Section Related Observation LastModified by Organization Detai ls LastModified Time None Recorded Concern Status LastModified by Organization Details LastModified Time None Recorded Advance Directives Directive None Recorded Payers Insurance Date Sequence Insurance Name Policy Number Policy Guerrero Covered Member ID Guerrero Member ID Guarantor Name 06/02/2023 1 [place] Elayne Salmeron [id number] Elayne Salmeron 06/02/2023 2 [employer] (MEDICARE SUPPLEMENT) Elayne Salmeron [id number] Elayne Salmeron 06/02/2023 [employer] - DMEPOS ASSIGNED (MEDICARE DME REGION B) Elayne Salmeron [id number] Elayne Salmeron Notes Date Note Type Note [...] with her son today. Christian Olsen MD [address] [place] [address], [facility] [address], [place], [address], [place] [facility] 02/01/2023 14:32:04 OBGyn Episode No OBEpisode recorded.
--- OUTSIDE RECORDS SUMMARY | 2024-09-22 09:00 | XMS_ITS ---
Author Organization [facility] Address [address] [place], [place] [address] Care Team Providers Care Insurance Special Agent Name Role Phone CHI GIBSON Unavailable [phone] WendyEleazar clayish Unavailable Unavailable CLIF IRIZARRY Unavailable [phone] Allergies No Known Allergies REASON FOR VISIT *General care Medications Medication SIG (Take, Route, Frequency, Duration) Notes Start Date End Date Status aspirin 81 MG Delayed Release Oral Tablet [S[employer] Aspirin] ORAL aspirin 81 MG Delayed Release Oral Tablet [S[employer] Aspirin]Original Medicationaspirin 81 MG Delayed Release Oral Tablet [S[employer] Aspirin] *Reorder from [employer] for eRx and Interaction Alerts* 07/20/2012 Active Glucosamine Sulfate 500 MG Oral Tablet ORAL glucosamine sulfate 500 MG Oral TabletOriginal Medicationglucosamine sulfate 500 MG Oral Tablet *Reorder from [employer] for eRx and Interaction Alerts* 07/20/2012 Active chondroitin sulfates 250 MG Oral Capsule ORAL chondroitin sulfates 250 MG Oral CapsuleOriginal Medicationchondroitin sulfates 250 MG Oral Capsule *Reorder from [employer] for eRx and Interaction Alerts* 07/20/2012 Active Magnesium Gluconate 550 MG Oral Tablet ORAL magnesium gluconate 550 MG Oral TabletOriginal Medicationmagnesium gluconate 550 MG Oral Tablet *Reorder from [employer] for eRx and Interaction Alerts* 07/20/2012 Active Vital Signs Height 59.00 in 07/29/2024 Weight 154 lbs 07/29/2024 BMI 31.1 kg/m2 07/29/2024 Height-cm 149.86 cm 07/29/2024 Weight-kg 69.85 kg 07/29/2024 Encounters Encounter Location Date Provider Diagnosis [address] [id number] 07/29/2024 CLIF IRIZARRY Tinea unguium B35.1 ; Pain in right toe(s) M79.674 ; Pain in left toe(s) M79.675 ; Unspecified atherosclerosis of [place] arteries of extremities, bilateral legs I70.203 and [...] (ICD-10 - M79.675) 07/29/2024 Unspecified atherosclerosis of [place] arteries of extremities, bilateral legs (ICD-10 - [...] OTC and prescription treatments. Unspecified atherosclerosis of [place] arteries of extremities, bilateral legs Patient educated [...] Reason: Provider Name:CLIF CEVALLOS, 10/07/2024 02:10:00 PM, [address] [place] [address], [id number], Progress Notes * CICI HUTCHINSON KDOB:[birth year] (79 yo F)Acc No.[id number]:07/29/2024 Patient: CICI DEAN Provider: Carlos IRIZARRY :1945 A ge:79 Y S ex:Female Date:07/29/2024 Address:[address] [place] [address], [address], [facility] Subjective: * Chief Complaints: * 1 . *General care. * HPI: H PI: General care Simona arrieta presents to the office for diabetic foot care. Patient states that their nails are thickened, elongated and painful. Patient states that it is aggravated by shoe gear. Onset is gradual., P atkrish denies taking blood thinners., D ate last [...] gluconate 550 MG Oral Tablet *Reorder from [employer] for eRx and Interaction Alerts*, Taking Glucosamine Sulfate 500 MG Oral Tablet ORAL , Notes to Pharmacist: glucosamine sulfate 500 MG Oral TabletOriginal Medicationglucosamine sulfate 500 MG Oral Tablet *Reorder from [employer] for eRx and Interaction Alerts*, Taking aspirin 81 MG Delayed Release Oral Tablet [Sense.ly Aspirin] ORAL , Notes to Pharmacist: aspirin 81 MG Delayed Release Oral Tablet [Sense.ly Aspirin]Original Medicationaspirin 81 MG Delayed Release Oral Tablet [Sense[employer]ly Aspirin] *Reorder from [employer] for eRx and Interaction Alerts*, Taking chondroitin sulfates 250 MG Oral Capsule ORAL , Notes to Pharmacist: chondroitin sulfates 250 MG Oral CapsuleOriginal Medicationchondroitin sulfates 250 MG Oral Capsule *Reorder from [employer] for eRx and Interaction Alerts*, Medication List [...] M79.675 4 . 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 U nspecified atherosclerosis of [place] arteries of extremities, bilateral legs Notes: Patient [...] Information: * Visit Code: * Procedure Codes: 13626 DEBRIDE NAIL, 6 OR MORE. Modifiers: Q8 * Electronic signature of AURELIO IRIZARRY DPM on 09/22/2024 at 09:00 AM CDT Sign off status: Pending * Provider: Carlos IRIZARRY Date: 0 07/29/2024 Generated for Rigoberto Chen on: 0 09/22/2024 09:00 AM CDT History and Physical Notes * [...]
--- OUTSIDE RECORDS SUMMARY | 2024-09-22 09:00 | XMS_ITS | Patient Health Record ---
Author Organization [facility] Address [address] [place], [place] [address] Care Team Providers Care Community Music Therapist Name Role Phone CHI GIBSON Unavailable [phone] WendyJonathon clay Unavailable Unavailable ESTHELAJEMAL COELLOUR Unavailable [phone] CLIF IRIZARRY Unavailable [phone] Allergies No Known Allergies Reason For Referral No Information Medications Medication SIG (Take, Route, Frequency, Duration) Notes Start Date End Date Status aspirin 81 MG Delayed Release Oral Tablet [inSparq Aspirin] ORAL aspirin 81 MG Delayed Release Oral Tablet [inSparq Aspirin]Original Medicationaspirin 81 MG Delayed Release Oral Tablet [inSparq Aspirin] *Reorder from [employer] for eRx and Interaction Alerts* 07/20/2012 Active Glucosamine Sulfate 500 MG Oral Tablet ORAL glucosamine sulfate 500 MG Oral TabletOriginal Medicationglucosamine sulfate 500 MG Oral Tablet *Reorder from [employer] for eRx and Interaction Alerts* 07/20/2012 Active chondroitin sulfates 250 MG Oral Capsule ORAL chondroitin sulfates 250 MG Oral CapsuleOriginal Medicationchondroitin sulfates 250 MG Oral Capsule *Reorder from [employer] for eRx and Interaction Alerts* 07/20/2012 Active Magnesium Gluconate 550 MG Oral Tablet ORAL magnesium gluconate 550 MG Oral TabletOriginal Medicationmagnesium gluconate 550 MG Oral Tablet *Reorder from [employer] for eRx and Interaction Alerts* 07/20/2012 Active Immunizations Vaccine Route Administration Date Status Comme nts Influenza, high dose seasonal Unknown 12/19/2022 Admini stered Vital Signs Height-cm 149.86 cm 07/29/2024 Weight-kg 69.85 kg 07/29/2024 Height 59.00 in 07/29/2024 Weight 154 lbs 07/29/2024 BMI 31.1 kg/m2 07/29/2024 Encounters Encounter Location Date Provider Diagnosis [address] [id number] 07/29/2024 CLIF IRIZARRY Tinea unguium B35.1 ; Pain in right toe(s) M79.674 ; Pain in left toe(s) M79.675 ; Unspecified atherosclerosis of [place] arteries of extremities, bilateral legs I70.203 and Type 2 diabetes mellitus with other circulatory complications E11.[address] [id number] 11/13/2023 BILL PEREZ Tinea unguium B35.1 ; Pain in right toe(s) M79.674 ; Pain in left toe(s) M79.675 ; Other hammer toe(s) (acquired), right foot M20.41 ; Other hammer toe(s) (acquired), left foot M20.42 ; Unspecified atherosclerosis of [place] arteries of extremities, bilateral legs I70.203 and Type 2 diabetes mellitus with other circulatory complications E11.59 [facility] [address] [place], [place] [id number] 01/22/2024 BILL PEREZ Tinea unguium B35.1 ; Pain in right toe(s) M79.674 ; Pain in left toe(s) M79.675 ; Other hammer toe(s) (acquired), right foot M20.41 ; Other hammer toe(s) (acquired), left foot M20.42 ; Unspecified atherosclerosis of [place] arteries of extremities, bilateral legs I70.203 [...] in left toe(s) (ICD-10 - M79.675) 01/22/2024 Pain in left toe(s) (ICD-10 - [...] were discussed, but conservative options were emphasized. 07/29/2024 Unspecified atherosclerosis of [place] arteries of extremities, bilateral legs (ICD-10 [...] not limited to nausea, vomiting, fever. 01/22/2024 Other hammer toe(s) (acquired), left foot (ICD-10 - M20.42) 11/13/2023 Other hammer toe(s) (acquired), left foot (ICD-10 - M20.42) 11/13/2023 Unspecified atherosclerosis of [place] arteries of extremities, 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) Patient educated on risks and aggravating factors of PVD, including conservative treatment options such as a diet and exercise regimen to aid in slowing progression of vascular disease 01/22/2024 Unspecified atherosclerosis of [place] arteries of extremities, bilateral legs (ICD-10 [...] Details Provider Name:CLIF CEVALLOS, 10/07/2024 02:10:00 PM, [address] [place] [address], [id number], Insurance Providers Payer Name Payer Address Payer Phone Subscriber Number Group Number Insured Name Patient Relationship to Insured Coverage Start Date Coverage End Date Medicare Part B [place] [address] [place] [address] [id number] CICI HUTCHINSON Self - patient is the insured [facility] Life Paper Claim [address] [address] [place] [address] [id number] CICI HUTCHINSON Self - patient is the insured
[2024-09-22 09:11] LABS: Hematocrit 23.3 % (35.0-42.0); Hemoglobin 7.5 g/dL (11.7-13.8); Immature Platelet Fraction Pct 1.9 % (1.0-7.0); Mean Corpuscular HGB Conc 32.2 g/dL (32-36); Mean Corpuscular Hemoglobin 29.8 pg (27.0-31.0); Mean Corpuscular Volume 92.5 fL (78.0-102.0); Platelet Count Result 55 K/mm3 (150-420); Red Blood Count 2.52 M/mm3 (4.20-5.40); White Blood Count 3.6 K/mm3 (4.8-10.8)
[2024-09-22 09:40] LABS: Band Neutrophils Percent 0 % (0-6); Eosinophils Absolute Manual 0.18 K/mm3 (0.02-0.50); Eosinophils Percent Manual 5 % (1-6); Lymphocytes Absolute Manual 0.57 K/mm3 (1.1-4.5); Lymphocytes Percent Manual 16 % (18-44); Monocytes Absolute Manual 0.21 K/mm3 (0.1-0.90); Monocytes Percent Manual 6 % (3-9); Neutrophils Absolute Manual 2.62 K/mm3 (1.3-6.7); Neutrophils Percent Manual 73 % (46-73); Total Cells Counted 100
== END 2024-09-22 08:38 | disposition home or self-care (01) ==
PROVIDERS: PCP Internal Medicine; Visit Provider Internal Medicine Pulmonary Disease
DX: D64.9 Anemia, unspecified (principal); C50.919 Malignant neoplasm of unspecified site of unspecified female breast
CPT/HCPCS: 36415; 85025; 85055; 86850; 86900; 86901

== ENCOUNTER 2024-12-01 10:29 | Outpatient (CLI) | payer MEDICARE, SELFPAY ==
--- OUTSIDE RECORDS SUMMARY | 2024-04-22 04:30 | XMS_ITS ---
Author Organization [facility] Address [address] [place], [place] [address] Care Team Providers Care Public Records Officer Name Role Phone CHI GISBON Unavailable [phone] Jonathon Nguyen Unavailable Unavailable REASON FOR VISIT *General care Encounters Encounter Location Date Provider Diagnosis [address] [id number] 04/22/2024 CHI GIBSON Plan Of Treatment No Information Progress Notes * CICI HUTCHINSON KDOB:[birth year] (79 yo F)Acc No.[id number]:04/22/2024 Patient: CICI DEAN Provider: Andres Gibson DPM :1945 A ge:78 Y S ex:Female Date:04/22/2024 Address:[address] [place] [address], [address] Subjective: * Chief Complaints: * 1 . *General care. * Medical History: Objective: * Vitals: Assessment: Plan: * Treatment: * Billing Information: * Visit Code: * Procedure Codes: * Electronic signature of CHI GIBSON DPM on 12/01/2024 at 11:14 AM CDT Sign off status: Pending * Provider: Andres Gibson DPM Date: 0 04/22/2024 Generated for Printi ng/Fanonig/eTransmitting on: 1 11:14 AM CDT
--- OUTSIDE RECORDS SUMMARY | 2024-07-29 09:50 | XMS_ITS ---
Author Organization [facility] Address [address] [place], [place] [address] Care Team Providers Care Motorcycle Delivery Driver Name Role Phone CHI GIBSON Unavailable [phone] WendyEleazar clayish Unavailable Unavailable CLIF IRIZARRY Unavailable [phone] Allergies No Known Allergies REASON FOR VISIT *General care Medications Medication SIG (Take, Route, Frequency, Duration) Notes Start Date End Date Status aspirin 81 MG Delayed Release Oral Tablet [Purch Aspirin] ORAL aspirin 81 MG Delayed Release Oral Tablet [Purch Aspirin]Original Medicationaspirin 81 MG Delayed Release Oral Tablet [Purch Aspirin] *Reorder from [employer] for eRx and Interaction Alerts* 07/20/2012 Active Glucosamine Sulfate 500 MG Oral Tablet ORAL glucosamine sulfate 500 MG Oral TabletOriginal Medicationglucosamine sulfate 500 MG Oral Tablet *Reorder from [employer] for eRx and Interaction Alerts* 07/20/2012 Active chondroitin sulfates 250 MG Oral Capsule ORAL chondroitin sulfates 250 MG Oral CapsuleOriginal Medicationchondroitin sulfates 250 MG Oral Capsule *Reorder from [employer] for eRx and Interaction Alerts* 07/20/2012 Active Magnesium Gluconate 550 MG Oral Tablet ORAL magnesium gluconate 550 MG Oral TabletOriginal Medicationmagnesium gluconate 550 MG Oral Tablet *Reorder from [employer] for eRx and Interaction Alerts* 07/20/2012 Active Vital Signs Height 59.00 in 07/29/2024 Weight 154 lbs 07/29/2024 BMI 31.1 kg/m2 07/29/2024 Height-cm 149.86 cm 07/29/2024 Weight-kg 69.85 kg 07/29/2024 Encounters Encounter Location Date Provider Diagnosis [address] [id number] 07/29/2024 CLIF IRIZARRY Tinea unguium B35.1 ; Pain in right toe(s) M79.674 ; Pain in left toe(s) M79.675 ; Unspecified atherosclerosis of [place] arteries of extremities, bilateral legs I70.203 and [...] (ICD-10 - M79.675) 07/29/2024 Unspecified atherosclerosis of [place] arteries of extremities, bilateral legs (ICD-10 - [...] OTC and prescription treatments. Unspecified atherosclerosis of [place] arteries of extremities, bilateral legs Patient educated [...] CICI HUTCHINSON KDOB:[birth year] (79 yo F)Acc No.[id number]:07/29/2024 Patient: Arleth RUYCICI Provider: Carlos IRIZARRY :1945 A ge:79 Y S ex:Female Date:07/29/2024 Address:[address] [place] [address], [place] [address] Subjective: * Chief Complaints: * 1 . *General care. * HPI: H PI: General care P atient presents to the office for diabetic foot care. Patient states that their nails are thickened, elongated and painful. Patient states that it is aggravated by shoe gear. Onset is gradual., P atient denies taking blood thinners., D ate last seen by Dr. Nguyen was 01/2024., I nitjun LB. * ROS: G eneral / Constitutional: Patient denies w eakness. M usculoskeletal: Patient complains of j oint stiffness, hammertoes, flat feet/ planus. P eripheral Vascular: Patient denies b lanching of skin, cold extremities, decreased sensation in extremities. S kin: Patient complains of n ail changes, fungal nails. ? N eurologic: Patient denies d izziness, gait abnormality, headache. * Medical History: M edical History Verified. * Family History: F ather: PRN - Father: :: Diabetes,,known absent . M other: PRN - Mother: :: Cancer,,known absent . B rother: SIB - Brother: :: Diabetes,,known absent . * Social History: M igrated Social History: M igrated Social History: Smoking Status : Never smoked , History of tobacco use :. * Medications: T aking Magnesium Gluconate 550 MG Oral Tablet ORAL , Notes to Pharmacist: magnesium gluconate 550 MG Oral TabletOriginal Medicationmagnesium gluconate 550 MG Oral Tablet *Reorder from [employer] for eRx and Interaction Alerts*, Taking Glucosamine Sulfate 500 MG Oral Tablet ORAL , Notes to Pharmacist: glucosamine sulfate 500 MG Oral TabletOriginal Medicationglucosamine sulfate 500 MG Oral Tablet *Reorder from [employer] for eRx and Interaction Alerts*, Taking aspirin 81 MG Delayed Release Oral Tablet [Katelyn Aspirin] ORAL , Notes to Pharmacist: aspirin 81 MG Delayed Release Oral Tablet [Katelyn Aspirin]Original Medicationaspirin 81 MG Delayed Release Oral Tablet [Purch Aspirin] *Reorder from [employer] for eRx and Interaction Alerts*, Taking chondroitin sulfates 250 MG Oral Capsule ORAL , Notes to Pharmacist: chondroitin sulfates 250 MG Oral CapsuleOriginal Medicationchondroitin sulfates 250 MG Oral Capsule *Reorder from [employer] for eRx and Interaction Alerts*, Medication List reviewed and reconciled with the patient * Allergies: N .K.D.A. Objective: * Vitals: W t: 154 lbs, [...] M79.675 4 . U nspecified atherosclerosis of [place] arteries of extremities, bilateral legs - I70.203 5 . 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 U nspecified atherosclerosis of [place] arteries of extremities, bilateral legs Notes: Patient [...] Information: * Visit Code: * Procedure Codes: 59981 DEBRIDE NAIL, 6 OR MORE. Modifiers: Q8 * Electronic signature of AURELIO IRIZARRY DPM on 12/01/2024 at 11:14 AM CDT Sign off status: Pending * Provider: Carlos IRIZARRY Date: 0 07/29/2024 Generated for Rigoberto smith/Adali/Sharon on: 1 11:14 AM CDT History and Physical Notes * [...]
--- OUTSIDE RECORDS SUMMARY | 2024-10-07 09:10 | XMS_ITS ---
Author Organization [facility] Address [address] [place], [place] [address] Care Team Providers Care Clinical Laboratory Aides Teacher Name Role Phone CHI GIBSON Unavailable [phone] Jonathon Nguyen Unavailable Unavailable CLIF IRIZARRY Unavailable [phone] REASON FOR VISIT *General care Encounters Encounter Location Date Provider Diagnosis [address] [id number] 10/07/2024 CLIF IRIZARRY Plan Of Treatment No Information Progress Notes * CICI HUTCHINSON KDOB:[birth year] (79 yo F)Acc No.[id number]:10/07/2024 Patient: MARIA ELENA DEANLIAndres Mar Provider: Carlos IRIZARRY :1945 A ge:79 Y S ex:Female Date:10/07/2024 Address:[address] [place], [place] [address] Subjective: * Chief Complaints: * 1 . *General care. * Medical History: Objective: * Vitals: Assessment: Plan: * Treatment: * Billing Information: * Visit Code: * Procedure Codes: * Electronic signature of AURELIO IRIZARRY DPM on 12/01/2024 at 11:14 AM CDT Sign off status: Pending * Provider: Carlos IRIZARRY Date: 0 10/07/2024 Generated for Printi ng/Faxing/eTransmitting on: 1 11:14 AM CDT
[2024-12-01 10:44] LABS: Hematocrit 24.8 % (35.0-42.0); Hemoglobin 7.7 g/dL (11.7-13.8); Immature Platelet Fraction Pct 2.7 % (1.0-7.0); Mean Corpuscular HGB Conc 31.0 g/dL (32-36); Mean Corpuscular Hemoglobin 27.7 pg (27.0-31.0); Mean Corpuscular Volume 89.2 fL (78.0-102.0); Platelet Count Result 41 K/mm3 (150-420); Red Blood Count 2.78 M/mm3 (4.20-5.40); White Blood Count 3.9 K/mm3 (4.8-10.8)
[2024-12-01 11:02] LABS: Band Neutrophils Percent 0 % (0-6); Basophils Absolute Manual 0.00 K/mm3 (0-0.1); Basophils Percent Manual 0 % (0-1); Eosinophils Absolute Manual 0.11 K/mm3 (0.02-0.50); Eosinophils Percent Manual 3 % (1-6); Lymphocytes Absolute Manual 0.62 K/mm3 (1.1-4.5); Lymphocytes Percent Manual 16 % (18-44); Monocytes Absolute Manual 0.23 K/mm3 (0.1-0.90); Monocytes Percent Manual 6 % (3-9); Neutrophils Absolute Manual 2.92 K/mm3 (1.3-6.7); Neutrophils Percent Manual 75 % (46-73); Total Cells Counted 100
[2024-12-01 11:06] LABS: Hemoglobin A1C 9.0 % (<5.7)
--- OUTSIDE RECORDS SUMMARY | 2024-12-01 11:14 | XMS_ITS | Patient Health Record ---
Author Organization [facility] Address [address] [place], [place] [address] Care Team Providers Care Horse Wrangler Name Role Phone CHI GIBSON Unavailable [phone] WendyJonathon clay Unavailable Unavailable ESTHELAJEMAL COELLOUR Unavailable [phone] CLIF IRIZARRY Unavailable [phone] Allergies No Known Allergies Reason For Referral No Information Medications Medication SIG (Take, Route, Frequency, Duration) Notes Start Date End Date Status aspirin 81 MG Delayed Release Oral Tablet [[employer] Aspirin] ORAL aspirin 81 MG Delayed Release Oral Tablet [[employer] Aspirin]Original Medicationaspirin 81 MG Delayed Release Oral Tablet [[employer] Aspirin] *Reorder from [facility] for eRx and Interaction Alerts* 07/20/2012 Active Glucosamine Sulfate 500 MG Oral Tablet ORAL glucosamine sulfate 500 MG Oral TabletOriginal Medicationglucosamine sulfate 500 MG Oral Tablet *Reorder from [facility] for eRx and Interaction Alerts* 07/20/2012 Active chondroitin sulfates 250 MG Oral Capsule ORAL chondroitin sulfates 250 MG Oral CapsuleOriginal Medicationchondroitin sulfates 250 MG Oral Capsule *Reorder from [facility] for eRx and Interaction Alerts* 07/20/2012 Active Magnesium Gluconate 550 MG Oral Tablet ORAL magnesium gluconate 550 MG Oral TabletOriginal Medicationmagnesium gluconate 550 MG Oral Tablet *Reorder from [facility] for eRx and Interaction Alerts* 07/20/2012 Active Immunizations Vaccine Route Administration Date Status Comme nts Influenza, high dose seasonal Unknown 12/19/2022 Admini stered Vital Signs Height-cm 149.86 cm 07/29/2024 Weight-kg 69.85 kg 07/29/2024 Height 59.00 in 07/29/2024 Weight 154 lbs 07/29/2024 BMI 31.1 kg/m2 07/29/2024 Encounters Encounter Location Date Provider Diagnosis [address] [id number] 07/29/2024 CLIF IRIZARRY Tinea unguium B35.1 ; Pain in right toe(s) M79.674 ; Pain in left toe(s) M79.675 ; Unspecified atherosclerosis of [place] arteries of extremities, bilateral legs I70.203 and Type 2 diabetes mellitus with other circulatory complications E11.59 [facility] [address] [place], [place] [id number] 01/22/2024 BILL PEREZ Tinea unguium B35.1 ; Pain in right toe(s) M79.674 ; Pain in left toe(s) M79.675 ; Other hammer toe(s) (acquired), right foot M20.41 ; Other hammer toe(s) (acquired), left foot M20.42 ; Unspecified atherosclerosis of [place] arteries of extremities, bilateral legs I70.203 and [...] options were emphasized. 07/29/2024 Unspecified atherosclerosis of [place] arteries of extremities, bilateral legs (ICD-10 - [...] (ICD-10 - M20.42) 01/22/2024 Unspecified atherosclerosis of [place] arteries of extremities, bilateral legs (ICD-10 - [...] Date Coverage End Date Medicare Part B [place] [address] [facility] [place] [phone] [id number] CICI HUTCHINSON Self - patient is the insured [facility] Life Paper Claim [address] [address] [place], [place] [phone] [id number] CICI HUTCHINSON Self - patient is the insured
[2024-12-01 11:34] LABS: Alanine Aminotransferase 12 U/L (6-35); Albumin Level 3.8 g/dL (3.5-5.1); Alkaline Phosphatase 83 U/L (38-126); Anion Gap 8 mmol/L (4-12); Aspartate Amino Transferase 26 U/L (14-36); Bilirubin,Total 0.7 mg/dL (0.2-1.3); Blood Urea Nitrogen 15 mg/dL (7-17); Calcium 9.5 mg/dL (8.4-10.2); Carbon Dioxide 28 mmol/L (22-30); Chloride 103 mmol/L (98-107); Cholesterol 124 mg/dL (0-200); Estimated Glomerular Filt Rate > 60; Glucose 275 mg/dL (65-110); HDL Direct 43 mg/dL; Osmolality Calculated 298 mOsm/kg (285-295); Potassium 4.8 mmol/L (3.4-5.0); Sodium 139 mmol/L (137-145); Total Protein 7.4 g/dL (6.3-8.2); Triglycerides 150 mg/dL (<150)
== END 2024-12-01 10:30 | disposition home or self-care (01) ==
LOC: CHSLAB 10:31
PROVIDERS: PCP Internal Medicine; Visit Provider Internal Medicine Hematology
DX: E11.65 Type 2 diabetes mellitus with hyperglycemia (principal); I10 Essential (primary) hypertension; E78.5 Hyperlipidemia, unspecified; C83.00 Small cell B-cell lymphoma, unspecified site
CPT/HCPCS: 36415; 80053; 80061; 83036; 85025; 85055

== ENCOUNTER 2025-01-20 08:21 | Outpatient (CLI) | payer MEDICARE, SELFPAY ==
--- NOTE | ~2025-01-20 | MM_ITS ---
EXAMINATION: [facility] w juliane INDICATION: Asymptomatic, referred for screening mammogram. History of Left partial mastectomy . COMPARISON: 01/19/2024 through 12/27/2019 TECHNIQUE: Digital Breast Tomosynthesis CC, MLO views were obtained of Both breasts with computer-aided detection to assist in interpretation of the study. FINDINGS: The breasts are extremely dense, which lowers the sensitivity of mammography. Posttreatment changes in Left breast are stable. No new focal dominant mass, architectural distortion, or suspicious microcalcifications are identified. There are no features to suggest malignancy. IMPRESSION: Stable benign mammogram. No evidence of malignancy in the breast. BI-RADS 2, BENIGN Reviewed, dictated and finalized at location B. RWAY TRAFFIC CHECKER
== END 2025-01-20 08:22 | disposition home or self-care (01) ==
PROVIDERS: PCP Internal Medicine; Visit Provider Internal Medicine
DX: Z12.31 Encounter for screening mammogram for malignant neoplasm of breast (principal)
CPT/HCPCS: 77063; 77067

== ENCOUNTER 2025-02-25 11:26 | Outpatient (CLI) | payer MEDICARE, SELFPAY ==
--- OUTSIDE RECORDS SUMMARY | 2024-04-22 03:30 | XMS_ITS ---
Author Organization [facility] Address [address] [place], [place] [address] Care Team Providers Care Mainframe Programmer Name Role Phone CHI GIBSON Unavailable [phone] Jonathon Nguyen Unavailable Unavailable REASON FOR VISIT *General care Encounters Encounter Location Date Provider Diagnosis [address] [id number] 04/22/2024 CHI GIBSON Plan Of Treatment No Information Progress Notes * CICI HUTCHINSON KDOB:[birth year] (79 yo F)Acc No.[id number]:04/22/2024 Patient: MARIA ELENA DEANLIAndres Mar Provider: Andres Gibson DPM :1945 A ge:78 Y S ex:Female Date:04/22/2024 Address:[address] [place] [address], [address] Subjective: * Chief Complaints: * * General care * Electronic signature of CHI GIBSON DPM on 02/25/2025 at 11:30 AM DEALERSHIP GENERAL MANAGER Sign off status: Pending * Provider: Andres Gibson DPM Date: 0 04/22/2024 Generated for Rigoberto smith/Adali/eTransmitting on: 1 04/28/2024 11:30 AM DEALERSHIP GENERAL MANAGER
--- OUTSIDE RECORDS SUMMARY | 2024-07-29 08:50 | XMS_ITS ---
Author Organization [facility] Address [address] [place], [place] [id number] Care Team Providers Care Truck Manager Name Role Phone CHI GIBSON Unavailable [phone] WendyEleazar clayish Unavailable Unavailable CLIF IRIZARRY Unavailable [phone] Allergies No Known Allergies REASON FOR VISIT *General care Medications Medication SIG (Take, Route, Frequency, Duration) Notes Start Date End Date Status aspirin 81 MG Delayed Release Oral Tablet [Competitor Aspirin] ORAL aspirin 81 MG Delayed Release Oral Tablet [Competitor Aspirin]Original Medicationaspirin 81 MG Delayed Release Oral Tablet [Competitor Aspirin] *Reorder from [employer] for eRx and Interaction Alerts* 07/20/2012 Active Glucosamine Sulfate 500 MG Oral Tablet ORAL glucosamine sulfate 500 MG Oral TabletOriginal Medicationglucosamine sulfate 500 MG Oral Tablet *Reorder from [employer] for eRx and Interaction Alerts* 07/20/2012 Active chondroitin sulfates 250 MG Oral Capsule ORAL chondroitin sulfates 250 MG Oral CapsuleOriginal Medicationchondroitin sulfates 250 MG Oral Capsule *Reorder from [employer] for eRx and Interaction Alerts* 07/20/2012 Active Magnesium Gluconate 550 MG Oral Tablet ORAL magnesium gluconate 550 MG Oral TabletOriginal Medicationmagnesium gluconate 550 MG Oral Tablet *Reorder from [employer] for eRx and Interaction Alerts* 07/20/2012 Active Social History Social History Additional Details Category Social Info Options Details Migrated Social History Migrated Social History Smoking Status : Never smoked , History of tobacco use : Vital Signs Height 59.00 in 07/29/2024 Weight 154 lbs 07/29/2024 BMI 31.1 kg/m2 07/29/2024 Height-cm 149.86 cm 07/29/2024 Weight-kg 69.85 kg 07/29/2024 Encounters Encounter Location Date Provider Diagnosis [address] [id number] 07/29/2024 CLIF IRIZARRY Tinea unguium B35.1 ; Pain in right toe(s) M79.674 ; Pain in left toe(s) M79.675 ; Unspecified atherosclerosis of [place] arteries of extremities, bilateral legs I70.203 and Type 2 diabetes mellitus with other circulatory complications E11.59 Assessments Encounter Date Diagnosis (ICD Code) Assessment Notes Treatment Notes Treatment Clinical Notes Section Notes 07/29/2024 Tinea unguium (ICD-10 - B35.1) Aseptic debridement [...] educated regarding both OTC and prescription treatments. 07/29/2024 Pain in right toe(s) (ICD-10 - M79.674) 07/29/2024 Pain in left toe(s) (ICD-10 - M79.675) 07/29/2024 Unspecified atherosclerosis of [place] arteries of extremities, 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) Patient educated on risks and aggravating factors of PVD, including conservative treatment options such as a diet and exercise regimen to aid in slowing progression of vascular disease 07/29/2024 Type 2 diabetes mellitus with other circulatory [...] educated regarding both OTC and prescription treatments. Unspecified atherosclerosis of [place] arteries of extremities, bilateral legs Patient educated [...] Appt Details Follow Up: 3 Months, Reason: History and Physical Notes * HPI (History [...] seen by Dr. Nguyen was 01/2024., Initials [facility] Examination Category Sub-Category Detail Notes Category Not [...] x ten, no calf pain noted bilaterally, noted to bilateral foot Neurology: protective sensation intact to light touch bilateral digits one through five, vibratory sensation intact to first metatarsophalangeal joint bilaterally Progress Notes * CICI HUTCHINSON KDOB:[birth year] (79 yo F)Acc No.[id number]:07/29/2024 Patient: CICI DEAN Provider: Carlos IRIZARRY :1945 A ge:79 Y S ex:Female Date:07/29/2024 Address:[address] [place] [address], [place] [address] Subjective: * Chief Complaints: * * General care * HPI: H PI: General care P atient presents to the office for diabetic foot care. Patient states that their nails are thickened, elongated and painful. Patient states that it is aggravated by shoe gear. Onset is gradual., P atient denies taking blood thinners., D ate last seen by Dr. Nguyen was 01/2024., I nitials [facility]. * ROS: G eneral / Constitutional: Patient denies w eakness. M usculoskeletal: Patient complains of j oint stiffness, hammertoes, flat feet/ planus. P eripheral Vascular: Patient denies b lanching of skin, cold extremities, decreased sensation in extremities. S kin: Patient complains of n ail changes, fungal nails. ? N eurologic: Patient denies d izziness, gait abnormality, headache. * Medical History: No Medical History Documented Medical History Verified * Surgical History: No Surgical History documented. Surgical History verified. * Hospitalization/Major Diagno stic Procedure: No Hospitalization Documented. Hospitalization Verified. * Family History: F ather: PRN - Father: :: Diabetes,,known absent . M other: PRN - Mother: :: Cancer,,known absent . B rother: SIB - Brother: :: Diabetes,,known absent . F amily History Verified..? * Social History: M igrated Social History: M igrated Social History: Smoking Status : Never smoked , History of tobacco use :. Social History Verified. * Medications: T akingMagnesium Gluconate 550 MG Oral Tablet ORAL , Notes to Pharmacist: magnesium gluconate 550 MG Oral TabletOriginal Medicationmagnesium gluconate 550 MG Oral Tablet *Reorder from [facility] for eRx and Interaction Alerts*Glucosamine Sulfate 500 MG Oral Tablet ORAL , Notes to Pharmacist: glucosamine sulfate 500 MG Oral TabletOriginal Medicationglucosamine sulfate 500 MG Oral Tablet *Reorder from [facility] for eRx and Interaction Alerts*aspirin 81 MG Delayed Release Oral Tablet [Katelyn Aspirin] ORAL , Notes to Pharmacist: aspirin 81 MG Delayed Release Oral Tablet [Katelyn Aspirin]Original Medicationaspirin 81 MG Delayed Release Oral Tablet [Katelyn Aspirin] *Reorder from [facility] for eRx and Interaction Alerts*chondroitin sulfates 250 MG Oral Capsule ORAL , Notes to Pharmacist: chondroitin sulfates 250 MG Oral CapsuleOriginal Medicationchondroitin sulfates 250 MG Oral Capsule *Reorder from [facility] for eRx and Interaction Alerts*Medication List reviewed and reconciled with the patientTaking Magnesium Gluconate 550 MG Oral Tablet ORAL , Notes to Pharmacist: magnesium gluconate 550 MG Oral TabletOriginal Medicationmagnesium gluconate 550 MG Oral Tablet *Reorder from [facility] for eRx and Interaction Alerts*Taking Glucosamine Sulfate 500 MG Oral Tablet ORAL , Notes to Pharmacist: glucosamine sulfate 500 MG Oral TabletOriginal Medicationglucosamine sulfate 500 MG Oral Tablet *Reorder from [facility] for eRx and Interaction Alerts*Taking aspirin 81 MG Delayed Release Oral Tablet [Katelyn Aspirin] ORAL , Notes to Pharmacist: aspirin 81 MG Delayed Release Oral Tablet [Katelyn Aspirin]Original Medicationaspirin 81 MG Delayed Release Oral Tablet [Katelyn Aspirin] *Reorder from [facility] for eRx and Interaction Alerts*Taking chondroitin sulfates 250 MG Oral Capsule ORAL , Notes to Pharmacist: chondroitin sulfates 250 MG Oral CapsuleOriginal Medicationchondroitin sulfates 250 MG Oral Capsule *Reorder from [employer] for eRx and Interaction Alerts*Medication List reviewed and reconciled with the patient * Allergies: N .K.D.A.yesAllergies Verified. Objective: * Vitals: W t: 154 lbs, Wt-k.85 kg, Ht: 59.00 in, Ht-cm: 149.86 cm, BMI: 31.1 Index, Body Surface Area: 1.7. * Examination: P hysical Examination: V ascular: [...] x ten, no calf pain noted bilaterally, noted to bilateral foot Neurology: protective sensation intact to light touch bilateral digits one through five, vibratory sensation intact to first metatarsophalangeal joint bilaterally. Assessment: * Assessment: 1. T inea unguium - B35.1 (Primary) 2 . P ain in right toe(s) - M79.674? 3. P ain in left toe(s) - M79.675 4 . U nspecified atherosclerosis of [place] arteries of extremities, bilateral legs - I70.203 5 . 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 U nspecified atherosclerosis of [place] arteries of extremities, bilateral legs Notes: Patient educated on risks and aggravating factors of PVD, including conservative treatment options such as a diet and exercise regimen to aid in slowing progression of vascular disease ? 3. T ype 2 diabetes mellitus with other [...] not limited to nausea, vomiting, fever. * Immunizations: Immunization record has been reviewed and updated. * Procedure Codes: 1 1721 DEBRIDE NAIL, 6 OR MORE, Modifiers: Q8 * Follow Up: 3 Months Billing Information: * Procedure Codes: 81610 DEBRIDE NAIL, 6 OR MORE. Modifiers: Q8 * Electronic signature of AURELIO IRIZARRY DPM on 02/25/2025 at 11:30 AM JAVA XML DEVELOPER Sign off status: Pending * Provider: Carlos IRIZARRY Date: 0 07/29/2024 Generated for Rigoberto smith/Adali/Sharon on: 1 04/28/2024 11:30 AM JAVA XML DEVELOPER
--- NOTE | ~2025-02-25 | XR_ITS ---
XR chest 2V 02/25/2025 11:56 Indication: Chronic cough Procedure: 2 view chest Comparison: Comparison to multiple prior studies sequentially, with oldest reviewed study dated 05/22/2022. Findings: Borderline heart size. Subtle bibasilar infiltrates may represent mild edema or pneumonia. No pleural effusion or pneumothorax. Heart size normal. There is atherosclerosis of the aorta. There is evidence of chronic granulomatous disease. There is scoliosis. Impression: 1: Subtle bibasilar infiltrates may represent mild edema or pneumonia. Reviewed, dictated and finalized at location O. [facility] Impression: 1: Subtle bibasilar infiltrates may represent mild edema or pneumonia.
--- OUTSIDE RECORDS SUMMARY | 2025-02-25 11:30 | XMS_ITS | Encounter Summary ---
Author Organization [facility] Address [address] [place] [address] Care Team Providers Care Voltage Inspector Name Role Phone Non-Staff, Provider Primary Care Provider Luis troncoso Encounter Details Date Type Department Care Team (Late st Contact Info) Description 03/27/2024 [facility] Document[facility] [place] [address] [place] [address] Pema Kinsey MD [address] [place] [address] Social History Tobacco Use Types Packs/Day Years Used Date Smoking Tobacco: Never Smokeless Tobacco: Never Alcohol Use Standard Drinks/Week Comments Not Currently 0 (1 standard drink = 0.6 oz pur e alcohol) Comments Unknown Sex and Gender Information Value Date Recorded Sex Assigned at Female 03/26/2024 8:00 AM COUNTY AUDITOR Legal Sex Female 11:03 PM COUNTY AUDITOR Gender Identity Not on file Sexual Orientation [...] on filedocumented in this encounter Care Teams Voltage Inspector Relationship Specialty Start Date End Date Non-Staff, Provider PCP - General UNKNOWN PHYSICIAN SPECIALTY 12/25/23 documented as of this encounter
--- OUTSIDE RECORDS SUMMARY | 2025-02-25 11:30 | XMS_ITS ---
Author Organization [facility] Care Team Providers Care Industrial Boilermaker Name Role Phone Jonathon Nguyen Unavailable Unavailable Allergies and adverse reactions Code CodeSystem Substance Reaction Severity StartDate Concern Status 6809 RXNORM metFORMIN Nausea (code- 4 77339558, SNOMED CT) Unknown 06/06/2021 active Care Team Name Role Address Phone Organization Dates Jonathon Wendy PCP [address] [place], [address], [place] (Office): : [facility] 06/06/2021 - 07/14/2021 Immunizations Immunization Status Vaccine Details Vaccine Code CodeSystem Date Notes Influenza completed Influenza, high-dose, split virus, quadrivalent, injectable, preservative free 197 CVX created date: 2 administe red date: 1 TB 2 Step Mantoux Skin Test completed tuberculin skin test; unspecified formulation lotNumber: [id number] expiry: 08/17/2022 Mfg: SANOFI PASTEUR Given 0.1 [...] ind icated PHQ-9 03 minimal depress ion Insurance Providers Coverage Status Coverage Type Relationship to Subscriber Member Identifier Subscriber Identifier Group Identifier Payer Identifier and Other information Code: 1 Code System OID:2.16.840 .1.338127.3. 221.5 Code System Name: Source of Payment Typology (PHDSC) Display: Medicare Translation: Code: [place] Code System: OID:2.16.840 .1.191934.6. 255.1336 Code System Name: Insurance Type Code ([id number]) Display Name: Medicare Part A 2021 Code: 349 Code System OID:2.16.840 .1.738679.3. 221.5 Code System Name: Source of Payment Typology (PHDSC) Display: Other Translation: Code: C1 Code System: OID:2.16.840 .1.643569.6. 255.1336 Code System Name: Insurance Type Code ([id number]) Display Name: Commercial Insurance Code: SELF Code System Name: HL7 RoleCode Code System OID:2.16.840.1 .975600.5.111 Display Name: Self [id number] Root: [id number] Payer Name: BRENNAN Life Address: [address] [address] City: [place] State: [place] Country: [facility] Telecom: [phone] Problems Problem # Description Date of onset Resolved Date Code CodeSystem Concern Status 1 DIFFICULTY IN WALKING, NOT ELSEWHERE CLASSIFIED 06/07/[address] active 2 ABNORMAL POSTURE 06/06/[address] a ctive 3 BODY MASS INDEX [BMI] 33.0-33.9, ADULT 06/06/[address] active 4 DISPLACED FRACTURE OF FIFTH METATARSAL BONE, LEFT FOOT, SUBSEQUENT ENCOUNTER FOR FRACTURE WITH ROUTINE HEALING 06/06/[address] active 5 OTHER IDIOPATHIC PERIPHERAL AUTONOMIC NEUROPATHY 06/06/[address] active 6 UNSPECIFIED FRACTURE OF UPPER END OF RIGHT HUMERUS, SUBSEQUENT ENCOUNTER FOR FRACTURE WITH ROUTINE HEALING 06/06/[address] active 7 CHRONIC KIDNEY DISEASE, STAGE 3 UNSPECIFIED 06/05/[address] active 8 CHRONIC OBSTRUCTIVE PULMONARY DISEASE, UNSPECIFIED 06/05/[address] active 9 ESSENTIAL (PRIMARY) HYPERTENSION 06/05/[address] active 10 GOUT, UNSPECIFIED 06/05/[address] active 11 IRON DEFICIENCY ANEMIA, UNSPECIFIED 06/05/[address] active 12 PRIMARY OSTEOARTHRITIS, OTHER SPECIFIED SITE 06/05/[address] active 13 PURE HYPERCHOLESTEROLEM IA, UNSPECIFIED 06/05/[address] active 14 TYPE 2 DIABETES MELLITUS WITH DIABETIC NEPHROPATHY 06/05/[address] active 15 TYPE 2 DIABETES MELLITUS WITH UNSPECIFIED DIABETIC RETINOPATHY WITHOUT MACULAR EDEMA 06/05/[address] active Reason for Referral No Reasons for Referral Entered Social History Social History Observation Description Start Date End Date Code Code System Current Smoking Status Tobacco smoking consumption unknown 608810260 SNOMED CT Sex Assigned At Female 1945 17161-2 [facility] Gender Identity Sexual Orientation Vital Signs Code Code System Vitals Name Values and Units Timing Information 2339-0 [facility] Blood Sugar Wivqw=044.0 Units=mg/dL 07/14/2021 9279-1 [facility] Respiratory Rate Value=18.0 Units=/m in 07/14/2021 8462-4 [facility] Blood Pressure-Diastolic Value=60 Un its=mmHg 07/14/2021 8480-6 [facility] Blood Pressure-Systolic Ntxog=480 Un its=mmHg 07/14/2021 8310-5 [facility] Body Temperature Value=98.2 Units= F 07/14/2021 8867-4 [facility] Heart rate Value=68.0 Units=/min 95095-1 [facility] O2 % BldC Oximetry Value=98.0 Units= % 07/14/2021 46035-2 [facility] Weight Tbouu=514.7 Units=Lbs 12/2021 8302-2 [facility] Height Value=59.0 Units=Inches 06/07/2021
--- OUTSIDE RECORDS SUMMARY | 2025-02-25 11:30 | XMS_ITS | Patient Health Record ---
Author Organization [facility] Address [address] [place], [place] [address] Care Team Providers Care Child Center Assistant Name Role Phone CHI GIBSON Unavailable [phone] WendyJonathon clay Unavailable Unavailable CLIF IRIZARRY Unavailable [phone] Allergies No Known Allergies Reason For Referral No Information Medications Medication SIG (Take, Route, Frequency, Duration) Notes Start Date End Date Status aspirin 81 MG Delayed Release Oral Tablet [PulseOn Aspirin] ORAL aspirin 81 MG Delayed Release Oral Tablet [PulseOn Aspirin]Original Medicationaspirin 81 MG Delayed Release Oral Tablet [PulseOn Aspirin] *Reorder from BigString for eRx and Interaction Alerts* 07/20/2012 Active Glucosamine Sulfate 500 MG Oral Tablet ORAL glucosamine sulfate 500 MG Oral TabletOriginal Medicationglucosamine sulfate 500 MG Oral Tablet *Reorder from BigString for eRx and Interaction Alerts* 07/20/2012 Active chondroitin sulfates 250 MG Oral Capsule ORAL chondroitin sulfates 250 MG Oral CapsuleOriginal Medicationchondroitin sulfates 250 MG Oral Capsule *Reorder from BigString for eRx and Interaction Alerts* 07/20/2012 Active Magnesium Gluconate 550 MG Oral Tablet ORAL magnesium gluconate 550 MG Oral TabletOriginal Medicationmagnesium gluconate 550 MG Oral Tablet *Reorder from BigString for eRx and Interaction Alerts* 07/20/2012 Active Immunizations Vaccine Route Administration Date Status Comme nts Influenza, high dose seasonal Unknown 12/19/2022 Admini stered Social History Social History Additional Details Category Social Info Options Details Migrated Social History Migrated Social History Smoking Status : Never smoked , History of tobacco use : Vital Signs Height-cm 149.86 cm 07/29/2024 Weight-kg 69.85 kg 07/29/2024 Height 59.00 in 07/29/2024 Weight 154 lbs 07/29/2024 BMI 31.1 kg/m2 07/29/2024 Encounters Encounter Location Date Provider Diagnosis [address] [id number] 07/29/2024 CLIF IRIZARRY Tinea unguium B35.1 ; Pain in right toe(s) M79.674 ; Pain in left toe(s) M79.675 ; Unspecified atherosclerosis of new[place]en arteries of extremities, bilateral legs I70.203 and [...] (ICD-10 - M79.675) 07/29/2024 Unspecified atherosclerosis of [place]halen arteries of extremities, bilateral legs (ICD-10 - [...] Date Medicare Part B [place] [address] [place] [address] [id number] ICCI HUTCHINSON Self - patient is the insured [facility] Life Paper Claim [address] [address] [place] [address] [id number] CICI HUTCHINSON Self - patient is the insured
--- OUTSIDE RECORDS SUMMARY | 2025-02-25 11:30 | XMS_ITS | Encounter Summary ---
Author Organization [facility] Address [address] [place] [address] Care Team Providers Care Physics Teacher Name Role Phone Non-Staff, Provider Primary Care Provider Luis troncoso Encounter Details Date Type Department Care Team (Late st Contact Info) Description 05/20/2024 Hospital Orders Only [facility] [address] [facility] [place] [place] [address] Pema Kinsey MD [address] 1[address] [place] [address] Social History Tobacco Use Types Packs/Day Years Used Date Smoking Tobacco: Never Smokeless Tobacco: Never Alcohol Use Standard Drinks/Week Comments Not Currently 0 (1 standard drink = 0.6 oz pur e alcohol) Comments Unknown Sex and Gender Information Value Date Recorded Sex Assigned at Female 03/26/2024 8:00 AM RADIOACTIVE WASTE DISPOSAL DISPATCHER Legal Sex Female 11:03 PM RADIOACTIVE WASTE DISPOSAL DISPATCHER Gender Identity Not on file Sexual Orientation [...] on filedocumented in this encounter Care Teams Physics Teacher Relationship Specialty Start Date End Date Non-Staff, Provider PCP - General UNKNOWN PHYSICIAN SPECIALTY 12/25/23 documented as of this encounter
--- OUTSIDE RECORDS SUMMARY | 2025-02-25 11:31 | XMS_ITS | Data Portability ---
Author Organization [place] [facility] [employer], Main Office Address [address] [place] [address] Care Team Providers Care Destination Sign Repairer Name Role Phone KEANU SANTIAGO Primary Care Provider [phone] KEANU SANTIAGO Referring Provider Assessment Encounter Date [...] more than half the time spent in gsre-qe-jnbp care. Not available 02/01/2023 14:31:51 03/07/2023 03/07/2023 [...] spent treatment patient more half of this wnrf-so-azvv conversation Not available 03/07/2023 12:20:35 03/28/2023 03/28/2023 [...] knee 024 03/28/19 24 [email or web address] [facility], [address], [place], [address], 4 16:37:40 XR, knee 024 03/07/19 24 [email or web address] [facility], [address], [place], [address], 4 12:21:50 Medication Orders None record ed. Patient TargetsNo targets recorded. Patient InstructionsNo instructions recorded. Reason for Referral None Reported. Results Created Date Observation Date Name Description Value Unit Range Abnormal Flag Note LastModifiedBy Organization Detail LastModifiedTime 06/07/19 22 XR, hand No observ ation record ed. [id number] [facility] [address], [place], [address], 05/02/2022 01:01:26 06/07/19 22 XR, shoul karlie No observ ation record ed. [id number] [facility] [address], [place], [address], 05/02/2022 01:01:26 06/21/19 22 XR, humer us No observ ation record ed. [id number] [facility] [address], [place], [address], 05/02/2022 01:01:26 07/05/19 22 XR, hand No observ ation record ed. [id number] [facility] [address], [place], [address], 05/02/2022 01:01:26 07/05/19 22 XR, shoul karlie No observ ation record ed. [id number] [facility] [address], [place], [address], 05/02/2022 01:01:26 07/28/19 22 07/27/2021 XR, shoul karlie No observ ation record ed. [id number] [facility] [address], [place], [address], 05/02/2022 01:01:26 01/30/20 23 XR, knee No observ ation record ed. [email or web address] Not Available 2022 16:59:15 03/07/19 24 XR, knee No observ ation record ed. [facility] [address], [place], [address], 03/07/2023 12:18:44 03/28/19 24 XR, knee No observ ation record ed. [facility] [address], [place], [address], 03/28/2023 16:31:08 Result Notes None recorded. Problems Name Problem SNOMED Code Status Onset Date Resolution Date Notes Provider Name and Address Organization Details Recorded Time Pain of right shoulder joint 27521675880165 100 Active 2021 Not Available [facility] 3 00:59:39 Pain of left hand 56656487505285 3 Active 2021 Not Available [facility] 3 00:59:39 Fracture of phalanx of finger 86532874 Active 2021 Not Available [facility] 3 00:59:39 Closed fracture of upper end of humerus 72862327 Active 2021 Not Available [facility] 3 00:59:40 Pain of right knee joint 10214718190095 0 Active 2022 NAPOLEON Wan null, [facility] 3 12:25:42 Fracture of ankle 59051752 Active 2023 NAPOLEON Wan null, [facility] 4 10:58:49 Closed fracture of right patella 53934291662770 100 Active 2023 MONA Red [address] [place] [address], [facility] [address], [place], [address] , [facility] 4 11:35:53 Problem Notes None recorded. Procedures Surgical History Date Name Laterality Status Provider Name and Address Organization Details Recorded Time Breast Surgery completed Not Available [facility] 05/02/2022 00:58:24 procedure on hand completed Not Available [facility] 05/02/2022 00:58:24 Cataract Surgery completed Not Available [facility] 05/02/2022 00:58:24 Imaging Results None recorded. [...] Updated DateTime 03/07/2023 144.78 cm NAPOLEON Wan [facility] 03/07/2023 10:57:14 Date Recorded Body height Provider Name an d Address Organization Details Last Updated DateTime 03/28/2023 144.78 cm Michela Varner [facility] 03/28/2023 14:13:14 Date Recorded Body height Provider Name an d Address Organization Details Last Updated DateTime 07/04/2021 144.78 cm Not Available [facility] 3 00:58:55 Date Recorded Body height Provider Name an d Address Organization Details Last Updated DateTime 07/27/2021 144.78 cm Not Available [facility] 3 00:58:55 Date Recorded Body height Body mass index (BMI) Body weight Provider Name and Address Organization Details Last Updated DateTime 01/31/2023 144.78 cm 32.9 kg/m2 78594.04 g Krys Campos [facility] [employer] 01/31/2023 12:39:06 Social History None recorded. Functional Status Question Answer Note LastModified by Organizat ion Details LastModified Time What is your level of alcohol consumption? None [id number] Information not available 05/02/2022 Mental Status None recorded. Family History Relationship Description Onset Age of this Age Resolved Age Notes LastModified by Organization Details LastModified Time Father Hypertensive disorder [id number] Not available 05/02/2022 00:58:26 Father Diabetes mellitus [id number] Not available 05/02/2022 00:58:26 Mother Hypertensive disorder [id number] Not available 05/02/2022 00:58:26 Mother Diabetes mellitus [id number] Not available 05/02/2022 00:58:26 Medical History Condition Response BLINDNESS N KIDNEY STONES N CARPAL TUNNEL SYNDROME N MRSA N LUNG DISEASE/DISORDER N HISTORY OF DRUG ABUSE N RADIATION / CHEMOTHERAPY N COPD N ANKLE PAIN N SPORTS INJURY N BLOOD DISEASES N SCHIZOPHRENIA N SHINGLES N BOWEL PROBLEMS N DEPRESSION (INCLUDING POST ) N SHOULDER PAIN N STROKE/TIA N ULCERS N KNEE PAIN [...] YOU BEEN HOSPITALIZED OR SEEN IN [facility] IN THE PAST YEAR ? [...] Diagnosis SNOMED-CT Code Diagnosis ICD10 Code Diagnosis IMO Codes Diagnosis Note [id number] MD [facility] [address] [facility] [address] [address] 05/23/2021 00:00:00 05/27/2021 12:10:32 [id number] MD [facility] [address] [facility] [address] [place] [address] 06/06/2021 00:00:00 06/06/2021 14:59:59 [id number] MD [facility] [address] [facility] [address] [place] [address] 06/20/2021 00:00:00 06/20/2021 10:31:52 [id number] Christian Olsen MD [facility] [address] [place] [address] 07/04/2021 00:00:00 07/04/2021 17:33:55 [id number] Christian Olsen MD [facility] [address] [place] [address] 07/27/2021 00:00:00 07/30/2021 17:54:03 [id number] Christian Olsen MD [facility] [address] [place] [address] 01/31/2023 12:01:28 02/03/2023 10:53:27 Pain of right knee joint 2612447250 49825 M25.148 [id number] Christian Olsen MD [facility] [address] [place] [address] 03/07/2023 10:46:53 03/07/2023 12:21:50 Closed fracture of right patella 4384096025 3681248 S82.001A [id number] Christian Olsen MD [facility] [address] [place] [address] 03/28/2023 14:03:48 03/28/2023 16:37:40 Pain of right knee joint 5575509449 61399 M25.561 Health Concerns Section Related Observation LastModified by Organization Detai ls LastModified Time None Recorded Concern Status LastModified by Organization Details LastModified Time None Recorded Advance Directives Directive None Recorded Payers Insurance Date Sequence Insurance Name Policy Number Policy Guerrero Covered Member ID Guerrero Member ID Guarantor Name 06/02/2023 1 [place] Elayne Salmeron [id number] Elayne Salmeron 06/02/2023 2 [employer] (MEDICARE SUPPLEMENT) Elayne Salmeron [id number] Elayne Salmeron 06/02/2023 [employer] - DMEPOS ASSIGNED (MEDICARE DME REGION B) Elayne Salmeron [id number] Elayne Salmeron Notes Date Note Type Note [...] with her son today. Christian Olsen MD [address] [place] [address], [facility] [address], [place], [address], [place] [facility] 02/01/2023 14:32:04 OBGyn Episode No OBEpisode recorded.
--- OUTSIDE RECORDS SUMMARY | 2025-02-25 11:31 | XMS_ITS | Clinical Summary ---
Author Organization [facility] Address [address] [place] [address] Care Team Providers Care Child Development Director Name Role Phone Non-Staff, Provider Primary Care Provider Dianevapeyton lable Allergies No known active allergies Medications ferrous sulfate, 65 mg elemental, 325 (65 FE) MG tablet Take 1 tablet (325 mg total) by mouth 3 (three) times a week. M-w-f with vitamin C Active allopurinol (ZYLOPRIM) 100 [...] (four) hours as needed for Wheezing. Active Social History Tobacco Use Types Packs/Day Years Used Date Smoking Tobacco: Never Smokeless Tobacco: Never Tobacco Cessation:Counseling Given: Not Answered Alcohol Use Standard Drinks/Week Comments Not Currently 0 (1 standard drink = 0.6 oz pur e alcohol) Comments Unknown Sex and Gender Information Value Date Recorded Sex Assigned at Female 03/26/2024 8:00 AM TAPE CONTROLLED MACHINE STITCHER Legal Sex Female 11:03 PM TAPE CONTROLLED MACHINE STITCHER Gender Identity Not on file Sexual Orientation Not on file Last Filed Vital Signs Vital Sign Reading Time Taken Comments Blood Pressure 137/48 03/26/2024 1:05 PM TAPE CONTROLLED MACHINE STITCHER Pulse 65 03/26/2024 1:05 PM TAPE CONTROLLED MACHINE STITCHER Temperature 35.7 C (96.3 F) 12/26/2023 9:21 AM CDT Respiratory Rate 03/26/2024 1:05 PM TAPE CONTROLLED MACHINE STITCHER Oxygen Saturation 94% 03/26/2024 1:18 PM TAPE CONTROLLED MACHINE STITCHER Inhaled Oxygen Concentration - - Weight 68 kg (150 lb) 03/26/2024 9:21 AM TAPE CONTROLLED MACHINE STITCHER Height 149.9 cm (4' 11) 03/26/2024 9:21 AM TAPE CONTROLLED MACHINE STITCHER Body Mass Index 30.3 03/26/2024 9:21 AM TAPE CONTROLLED MACHINE STITCHER Plan of Treatment Health Maintenance Due Date Last Done Comments DTaP, Tdap and Td Vaccines ( 1 - Tdap) 1962 Zoster Vaccines (1 of 2) 1993 Annual Medicare Wellness Visit 2008 Dexa Scan (General) 2008 RSV Immunization or 60+ Years (1 - 1-dose 75+ series) 2018 COVID-19 Vaccine ( - 2024-2 6 season) 2024 Influenza Adult (#1) 2024 12/19/2022 Pneumococcal Vaccine: 50+ Years Completed 01/01/2016, 10/05/2013 Hepatitis A Vaccines Aged Out No long er eligible based on patient's age to complete this topic Meningococcal B Vaccine Aged Out No l onger eligible based on patient's age to complete this topic Meningococcal Vaccine Aged Out No kathleen shefali eligible based on patient's age to complete this topic RSV Immunizations Under 20 Months Aged Out No longer eligible b ased on patient's age to complete this topic Insurance [employer] MEDICARE Care Teams Child Development Director Relationship Specialty Start Date End Date Non-Staff, Provider PCP - General UNKNOWN PHYSICIAN SPECIALTY 12/25/23
--- OUTSIDE RECORDS SUMMARY | 2025-02-25 11:31 | XMS_ITS | Encounter Summary ---
Author Organization [facility] Address [address] [place] [address] Care Team Providers Care Vessel Specialist Name Role Phone Non-Staff, Provider Primary Care Provider Luis troncoso Reason for Visit * Reason Onset Date Comments Preprocedure Call 03/19/[address] Nguyen's office and they will fax over signed office notes from 03/16/24 appt Encounter Details Date Type Department Care Team (Latest Contact Info) Description 03/19/2024 Pre-Procedure Call [facility] [address] [place] [address] Randee Alas RN Preprocedure Call (Spoke with [...] Sex Assigned at Female 03/26/2024 8:00 AM BIOLOGICAL ENGINEER Legal Sex Female 11:03 PM BIOLOGICAL ENGINEER Gender Identity Not on file Sexual Orientation Not on file documented as of this encounter Functional Status * Are you deaf or do you have serious difficulty hearing Answer Date of Assessment Author Status No 12/26/2023 6:41 AM CDT Joe Perea RN Active * Are you blind or do you have serious difficulty seeing, even when wearing glasses? Answer Date of Assessment Author Status No 12/26/2023 6:41 AM BRYANT Joe Perea RN Active documented as of this encounter Plan of Treatment Not on file documented as of this encounter Visit Diagnoses Not on filedocumented in this encounter Care Teams Vessel Specialist Relationship Specialty Start Date End Date Non-Staff, Provider PCP - General UNKNOWN PHYSICIAN SPECIALTY 12/25/23 documented as of this encounter
[2025-02-25 12:06] LABS: Hematocrit 22.9 % (35.0-42.0); Hemoglobin 7.0 g/dL (11.7-13.8); Immature Platelet Fraction Pct 3.5 % (1.0-7.0); Mean Corpuscular HGB Conc 30.6 g/dL (32-36); Mean Corpuscular Hemoglobin 26.9 pg (27.0-31.0); Mean Corpuscular Volume 88.1 fL (78.0-102.0); Platelet Count Result 51 K/mm3 (150-420); Red Blood Count 2.60 M/mm3 (4.20-5.40); White Blood Count 5.1 K/mm3 (4.8-10.8)
[2025-02-25 12:18] LABS: Alanine Aminotransferase 22 U/L (6-35); Albumin Level 3.7 g/dL (3.5-5.1); Alkaline Phosphatase 92 U/L (38-126); Amylase 46 U/L (30-110); Anion Gap 10 mmol/L (4-12); Aspartate Amino Transferase 44 U/L (14-36); Bilirubin,Total 0.9 mg/dL (0.2-1.3); Blood Urea Nitrogen 16 mg/dL (7-17); Calcium 8.7 mg/dL (8.4-10.2); Carbon Dioxide 21 mmol/L (22-30); Chloride 102 mmol/L (98-107); Creatine Kinase 95 U/L (30-135); Estimated Glomerular Filt Rate 43; Glucose 185 mg/dL (65-110); Lipase 20 U/L (23-300); Osmolality Calculated 282 mOsm/kg (285-295); Potassium 3.7 mmol/L (3.4-5.0); Sodium 133 mmol/L (137-145); Total Protein 6.7 g/dL (6.3-8.2)
[2025-02-25 12:39] LABS: Troponin I 1.380 ng/mL (0.000-0.034)
[2025-02-25 15:04] LABS: Appearance Urine Clear (Clear); Glucose Urine UA Negative (Negative); Leukocyte Esterase Ur 2+ (Negative); Nitrate Urine Negative (Negative); Specific Grav Ur 1.020 (1.010-1.020)
[2025-02-25 15:11] LABS: Add Urine Microscopic? YES
== END 2025-02-25 11:27 | disposition home or self-care (01) ==
LOC: CHSLAB 11:28
PROVIDERS: PCP Internal Medicine; Visit Provider Internal Medicine
DX: R11.2 Nausea with vomiting, unspecified (principal); R05.9 Cough, unspecified; R10.9 Unspecified abdominal pain; R91.8 Other nonspecific abnormal finding of lung field
CPT/HCPCS: 36415; 71046; 80053; 81001; 82150; 82550; 82553; 83690; 84484; 85027; 85055

== ENCOUNTER 2025-02-25 15:03 | Emergency (ER) | payer MEDICARE, SELFPAY ==
[2025-02-25] VITALS (44 sets, daily range): BP systolic 115–190; BP diastolic 43–84; PULSE 66–117; RESP 12–48; TEMP 37.1–39.1; O2SAT 83–100
--- OUTSIDE RECORDS SUMMARY | 2025-02-25 15:08 | XMS_ITS | Encounter Summary ---
Author Organization [facility] Address [address] [place] [address] Care Team Providers Care Embossograph Operator Name Role Phone Non-Staff, Provider Primary Care Provider Luis troncoso Encounter Details Date Type Department Care Team (Late st Contact Info) Description 05/20/2024 Hospital Orders Only [facility] [address] [facility] [place] [address] Pema Kinsey MD [address] [place] [address] Social History Tobacco Use Types Packs/Day Years Used Date Smoking Tobacco: Never Smokeless Tobacco: Never Alcohol Use Standard Drinks/Week Comments Not Currently 0 (1 standard drink = 0.6 oz pur e alcohol) Comments Unknown Sex and Gender Information Value Date Recorded Sex Assigned at Female 03/26/2024 8:00 AM TECHNICAL STAFF ASSISTANT Legal Sex Female 11:03 PM TECHNICAL STAFF ASSISTANT Gender Identity Not on file Sexual Orientation [...] on filedocumented in this encounter Care Teams Embossograph Operator Relationship Specialty Start Date End Date Non-Staff, Provider PCP - General UNKNOWN PHYSICIAN SPECIALTY 12/25/23 documented as of this encounter
--- OUTSIDE RECORDS SUMMARY | 2025-02-25 15:08 | XMS_ITS | Clinical Summary ---
Author Organization [facility] Address [address] [place] [address] Care Team Providers Care Director Bioinformatics Name Role Phone Non-Staff, Provider Primary Care [...] Sex Assigned at Female 03/26/2024 8:00 AM MANAGER OF COMPLIANCE Legal Sex Female 11:03 PM MANAGER OF COMPLIANCE Gender Identity Not on file Sexual Orientation Not on file Last Filed Vital Signs Vital Sign Reading Time Taken Comments Blood Pressure 137/48 03/26/2024 1:05 PM MANAGER OF COMPLIANCE Pulse 65 03/26/2024 1:05 PM MANAGER OF COMPLIANCE Temperature 35.7 C (96.3 F) 12/26/2023 9:21 AM CDT Respiratory Rate 03/26/2024 1:05 PM MANAGER OF COMPLIANCE Oxygen Saturation 94% 03/26/2024 1:18 PM MANAGER OF COMPLIANCE Inhaled Oxygen Concentration - - Weight 68 kg (150 lb) 03/26/2024 9:21 AM MANAGER OF COMPLIANCE Height 149.9 cm (4' 11) 03/26/2024 9:21 AM MANAGER OF COMPLIANCE Body Mass Index 30.3 03/26/2024 9:21 AM MANAGER OF COMPLIANCE Plan of Treatment Health Maintenance Due Date [...] this topic Insurance [employer] Care Teams Director Bioinformatics Relationship Specialty Start Date End Date Non-Staff, Provider PCP - General UNKNOWN PHYSICIAN SPECIALTY 12/25/23
--- OUTSIDE RECORDS SUMMARY | 2025-02-25 15:08 | XMS_ITS | Encounter Summary ---
Author Organization [facility] Address [address] [place] [address] Care Team Providers Care Care Center Manager Name Role Phone Non-Staff, Provider Primary Care Provider Luis troncoso Encounter Details Date Type Department Care Team (Late st Contact Info) Description [place]/27/2024 [facility] [place] [address] [place] [address] Pema Kinsey MD [address] [place] [address] Social History Tobacco Use Types Packs/Day Years Used Date Smoking Tobacco: Never Smokeless Tobacco: Never Alcohol Use Standard Drinks/Week Comments Not Currently 0 (1 standard drink = 0.6 oz pur e alcohol) Comments Unknown Sex and Gender Information Value Date Recorded Sex Assigned at Female 03/26/2024 8:00 AM LIME MIXER Legal Sex Female 11:03 PM LIME MIXER Gender Identity Not on file Sexual Orientation [...] on filedocumented in this encounter Care Teams Care Center Manager Relationship Specialty Start Date End Date Non-Staff, Provider PCP - General UNKNOWN PHYSICIAN SPECIALTY 12/25/23 documented as of this encounter
--- OUTSIDE RECORDS SUMMARY | 2025-02-25 15:08 | XMS_ITS ---
Author Organization [facility] Care Team Providers Care Cripple Cutter Name Role Phone Jonathon Nguyen Unavailable Unavailable Allergies and adverse reactions Code CodeSystem Substance Reaction Severity StartDate Concern Status 6809 RXNORM metFORMIN Nausea (code- 4 91975471, SNOMED CT) Unknown 06/06/2021 active Care Team Name Role Address Phone Organization Dates Jonathon Wendy PCP [address] [place], [address], [place] (Office): : [facility] 06/06/2021 - 07/14/2021 Immunizations Immunization Status Vaccine Details Vaccine Code CodeSystem Date Notes Influenza completed Influenza, high-dose, split virus, quadrivalent, injectable, preservative free 197 CVX created date: 2 administe red date: 1 TB 2 Step Mantoux Skin Test completed tuberculin skin test; unspecified formulation lotNumber: [id number] expiry: 08/17/2022 Mfg: SANOFI PASTEUR Given 0.1 [...] Other information Code: 1 Code System OID:2.16.840 .1.711411.3. 221.5 Code System Name: Source of Payment Typology (PHDSC) Display: Medicare Translation: Code: [place] Code System: OID:2.16.840 .1.132698.6. 255.1336 Code System Name: Insurance Type Code ([id number]) Display Name: Medicare Part A 2021 Code: 349 Code System OID:2.16.840 .1.379273.3. 221.5 Code System Name: Source of Payment Typology (PHDSC) Display: Other Translation: Code: C1 Code System: OID:2.16.840 .1.311866.6. 255.1336 Code System Name: Insurance Type Code ([id number]) Display Name: Commercial Insurance Code: SELF Code System Name: HL7 RoleCode Code System OID:2.16.840.1 .440278.5.111 Display Name: Self [id number] Root: [id number] Payer Name: BRENNAN Life Address: [address] [address] City: [place] State: [place] Country: [facility] Telecom: [phone] Problems Problem # Description Date of onset Resolved Date Code CodeSystem Concern Status 1 DIFFICULTY IN WALKING, NOT ELSEWHERE CLASSIFIED 06/07/[address] active 2 ABNORMAL POSTURE 06/06/[address] a ctive 3 BODY MASS INDEX [BMI] 33.0-33.9, ADULT 06/06/[address] active 4 DISPLACED FRACTURE OF FIFTH METATARSAL BONE, LEFT FOOT, SUBSEQUENT ENCOUNTER FOR FRACTURE WITH ROUTINE HEALING 06/06/[address] active 5 OTHER IDIOPATHIC PERIPHERAL AUTONOMIC NEUROPATHY 06/06/[address] active 6 UNSPECIFIED FRACTURE OF UPPER END OF RIGHT HUMERUS, SUBSEQUENT ENCOUNTER FOR FRACTURE WITH ROUTINE HEALING 06/06/[address] active 7 CHRONIC KIDNEY DISEASE, STAGE 3 UNSPECIFIED 06/05/[address] active 8 CHRONIC OBSTRUCTIVE PULMONARY DISEASE, UNSPECIFIED 06/05/[address] active 9 ESSENTIAL (PRIMARY) HYPERTENSION 06/05/[address] active 10 GOUT, UNSPECIFIED 06/05/[address] active 11 IRON DEFICIENCY ANEMIA, UNSPECIFIED 06/05/[address] active 12 PRIMARY OSTEOARTHRITIS, OTHER SPECIFIED SITE 06/05/[address] active 13 PURE HYPERCHOLESTEROLEM IA, UNSPECIFIED 06/05/[address] active 14 TYPE 2 DIABETES MELLITUS WITH DIABETIC NEPHROPATHY 06/05/[address] active 15 TYPE 2 DIABETES MELLITUS WITH UNSPECIFIED DIABETIC RETINOPATHY WITHOUT MACULAR EDEMA 06/05/[address] active Reason for Referral No Reasons for Referral Entered Social History Social History Observation Description Start Date End Date Code Code System Current Smoking Status Tobacco smoking consumption unknown 337445712 SNOMED CT Sex Assigned At Female 1945 [address]-1 [facility] Gender Identity Sexual Orientation Vital Signs Code Code System Vitals Name Values and Units Timing Information 2339-0 [facility] Blood Sugar Pnttf=036.0 Units=mg/dL 07/14/2021 9279-1 [facility] Respiratory Rate Value=18.0 Units=/m in 07/14/2021 8462-4 [facility] Blood Pressure-Diastolic Value=60 Un its=mmHg 07/14/2021 8480-6 [facility] Blood Pressure-Systolic Dfpcc=299 Un its=mmHg 07/14/2021 8310-5 [facility] Body Temperature Value=98.2 Units= F 07/14/2021 8867-4 [facility] Heart rate Value=68.0 Units=/min 67043-4 [facility] O2 % BldC Oximetry Value=98.0 Units= % 07/14/2021 26939-4 [facility] Weight Eenfs=829.7 Units=Lbs 12/2021 8302-2 [facility] Height Value=59.0 Units=Inches 06/07/2021
--- OUTSIDE RECORDS SUMMARY | 2025-02-25 15:08 | XMS_ITS | Encounter Summary ---
Author Organization [facility] Address [address] [place] [address] Care Team Providers Care Softball Winder Name Role Phone Non-Staff, Provider Primary Care Provider Luis troncoso Reason for Visit * Reason Onset Date Comments Preprocedure Call 03/19/[address] Nguyen's office and they will fax over signed office notes from 03/16/24 appt Encounter Details Date Type Department Care Team (Latest Contact Info) Description 03/19/2024 Pre-Procedure Call [facility] Interventional Radiology [address] [place] [address] Randee Alas RN Preprocedure Call (Spoke with [...] Sex Assigned at Female 03/26/2024 8:00 AM HULL AND DECK REMOVER Legal Sex Female 11:03 PM HULL AND DECK REMOVER Gender Identity Not on file Sexual Orientation [...] on filedocumented in this encounter Care Teams Softball Winder Relationship Specialty Start Date End Date Non-Staff, Provider PCP - General UNKNOWN PHYSICIAN SPECIALTY 12/25/23 documented as of this encounter
--- NOTE | 2025-02-25 15:11 | ECG_ITS ---
Test Date: 2025-02-25 15:20:40 Measurements Intervals [place] Rate: 67 P: 84 PA: 199 QRS: -12 QRSD: 90 T: 70 QT: 449 QTc: 474 Interpretive Statements SINUS RHYTHM CONSIDER INFERIOR INFARCT, AGE INDETERMINATE NONSPECIFIC ST & T-WAVE ABNORMALITY- DIFFUSE LEADS BASELINE WANDER- AVL, AVF, V1, V6 ABNORMAL ECG Compared to ECG 01/23/2024 10:42:03 HEART RATE HAS INCREASED First degree AV block no longer present Possible ischemia no longer present Electronically Signed On 02-25-2025 20:10:10 FAMILY DEVELOPMENT EXTENSION SPECIALIST by Ayaz Del Valle D.O.
--- OUTSIDE RECORDS SUMMARY | 2025-02-25 15:36 | XMS_ITS | Encounter Summary ---
Author Organization [facility] Address [address] [place] [address] Care Team Providers Care Nurse Technician Name Role Phone Non-Staff, Provider Primary Care Provider Luis troncoso Encounter Details Date Type Department Care Team (Late st Contact Info) Description 05/20/2024 Hospital Orders Only [facility] [address] [place] [address] Pema Kinsey MD [address] [place] [address] Social History Tobacco Use Types Packs/Day Years Used Date Smoking Tobacco: Never Smokeless Tobacco: Never Alcohol Use Standard Drinks/Week Comments Not Currently 0 (1 standard drink = 0.6 oz pur e alcohol) Comments Unknown Sex and Gender Information Value Date Recorded Sex Assigned at Female 03/26/2024 8:00 AM STOCKROOM CLERK Legal Sex Female 11:03 PM STOCKROOM CLERK Gender Identity Not on file Sexual [...] on filedocumented in this encounter Care Teams Nurse Technician Relationship Specialty Start Date End Date Non-Staff, Provider PCP - General UNKNOWN PHYSICIAN SPECIALTY 12/25/23 documented as of this encounter
--- OUTSIDE RECORDS SUMMARY | 2025-02-25 15:36 | XMS_ITS | Clinical Summary ---
Author Organization [facility] Address [address] [place] [address] Care Team Providers Care Automatic Drilling Machine Operator Name Role Phone Non-Staff, Provider Primary [...] Sex Assigned at Female 03/26/2024 8:00 AM GRAIN BUYER Legal Sex Female 11:03 PM GRAIN BUYER Gender Identity Not on file Sexual Orientation Not on file Last Filed Vital Signs Vital Sign Reading Time Taken Comments Blood Pressure 137/48 03/26/2024 1:05 PM GRAIN BUYER Pulse 65 03/26/2024 1:05 PM GRAIN BUYER Temperature 35.7 C (96.3 F) 12/26/2023 9:21 AM CDT Respiratory Rate 03/26/2024 1:05 PM GRAIN BUYER Oxygen Saturation 94% 03/26/2024 1:18 PM GRAIN BUYER Inhaled Oxygen Concentration - - Weight 68 kg (150 lb) 03/26/2024 9:21 AM GRAIN BUYER Height 149.9 cm (4' 11) 03/26/2024 9:21 AM GRAIN BUYER Body Mass Index 30.3 03/26/2024 9:21 AM GRAIN BUYER Plan of Treatment Health Maintenance Due Date [...] this topic Insurance [employer] MEDICARE Care Teams Automatic Drilling Machine Operator Relationship Specialty Start Date End Date Non-Staff, Provider PCP - General UNKNOWN PHYSICIAN SPECIALTY 12/25/23
--- OUTSIDE RECORDS SUMMARY | 2025-02-25 15:36 | XMS_ITS | Encounter Summary ---
Author Organization [facility] Address [address] [place] [address] Care Team Providers Care Account Maintenance Representative Name Role Phone Non-Staff, Provider Primary Care Provider Luis troncoso Reason for Visit * Reason Onset Date Comments Preprocedure Call 03/19/[address] Nguyen's office and they will fax over signed office notes from 03/16/24 appt Encounter Details Date Type Department Care Team (Latest Contact Info) Description 03/19/2024 Pre-Procedure Call [facility] Interventional Radiology [address] [place] [address] Randee Alas RN Preprocedure Call (Spoke with [...] Sex Assigned at Female 03/26/2024 8:00 AM REVENUE STAMP CLERK Legal Sex Female 11:03 PM REVENUE STAMP CLERK Gender Identity Not on file Sexual [...] on filedocumented in this encounter Care Teams Account Maintenance Representative Relationship Specialty Start Date End Date Non-Staff, Provider PCP - General UNKNOWN PHYSICIAN SPECIALTY 12/25/23 documented as of this encounter
--- OUTSIDE RECORDS SUMMARY | 2025-02-25 15:36 | XMS_ITS | Encounter Summary ---
Author Organization [facility] Address [address] [place] [address] Care Team Providers Care Supervisor Composing Room Name Role Phone Non-Staff, Provider Primary Care Provider Luis troncoso Encounter Details Date Type Department Care Team (Late st Contact Info) Description 03/27/2024 [facility] [place] [address] [place] [address] Pema Kinsey MD [address] [place] [address] Social History Tobacco Use Types Packs/Day Years Used Date Smoking Tobacco: Never Smokeless Tobacco: Never Alcohol Use Standard Drinks/Week Comments Not Currently 0 (1 standard drink = 0.6 oz pur e alcohol) Comments Unknown Sex and Gender Information Value Date Recorded Sex Assigned at Female 03/26/2024 8:00 AM SPOTTER DRIVER Legal Sex Female 11:03 PM SPOTTER DRIVER Gender Identity Not on file Sexual [...] filedocumented in this encounter Care Teams Supervisor Composing Room Relationship Specialty Start Date End Date Non-Staff, Provider PCP - General UNKNOWN PHYSICIAN SPECIALTY 12/25/23 documented as of this encounter
--- OUTSIDE RECORDS SUMMARY | 2025-02-25 15:36 | XMS_ITS ---
Author Organization [facility] Care Team Providers Care Arterial Embalmer Name Role Phone Jonathon Nguyen Unavailable Unavailable Allergies and adverse reactions Code CodeSystem Substance Reaction Severity StartDate Concern Status 6809 RXNORM metFORMIN Nausea (code- 4 17064525, SNOMED CT) Unknown 06/06/2021 active Care Team Name Role Address Phone Organization Dates Jonathon Wendy PCP [address] [place], [address], [place] (Office[place] : [facility] 06/06/2021 - 07/14/2021 Immunizations Immunization Status Vaccine Details Vaccine Code CodeSystem Date Notes Influenza completed Influenza, high-dose, split virus, quadrivalent, injectable, preservative free 197 CVX created date: 2 administe red date: 1 TB 2 Step Mantoux Skin Test completed tuberculin skin test; unspecified formulation lotNumber: [id number] expiry: 08/17/2022 Mfg: SANOFI PASTEUR Given 0.1 [...] Other information Code: 1 Code System OID:2.16.840 .1.747120.3. 221.5 Code System Name: Source of Payment Typology (PHDSC) Display: Medicare Translation: Code: [place] Code System: OID:2.16.840 .1.500151.6. 255.1336 Code System Name: Insurance Type Code ([id number]) Display Name: Medicare Part A 2021 Code: 349 Code System OID:2.16.840 .1.228844.3. 221.5 Code System Name: Source of Payment Typology (PHDSC) Display: Other Translation: Code: C1 Code System: OID:2.16.840 .1.406428.6. 255.1336 Code System Name: Insurance Type Code ([id number]) Display Name: Commercial Insurance Code: SELF Code System Name: HL7 RoleCode Code System OID:2.16.840.1 .471030.5.111 Display Name: Self [id number] Root: [id number] Payer Name: BRENNAN Life Address: [address] [address] City: [place] State: [place] Country: [facility] Telecom: [phone] Problems Problem # Description Date of onset Resolved Date Code CodeSystem Concern Status 1 DIFFICULTY IN WALKING, NOT ELSEWHERE CLASSIFIED 06/07/[address] active 2 ABNORMAL POSTURE 06/06/[address] a ctive 3 BODY MASS INDEX [BMI] 33.0-33.9, ADULT 06/06/[address] active 4 DISPLACED FRACTURE OF FIFTH METATARSAL BONE, LEFT FOOT, SUBSEQUENT ENCOUNTER FOR FRACTURE WITH ROUTINE HEALING 06/06/[address] active 5 OTHER IDIOPATHIC PERIPHERAL AUTONOMIC NEUROPATHY 06/06/[address] active 6 UNSPECIFIED FRACTURE OF UPPER END OF RIGHT HUMERUS, SUBSEQUENT ENCOUNTER FOR FRACTURE WITH ROUTINE HEALING 06/06/[address] active 7 CHRONIC KIDNEY DISEASE, STAGE 3 UNSPECIFIED 06/05/[address] active 8 CHRONIC OBSTRUCTIVE PULMONARY DISEASE, UNSPECIFIED 06/05/[address] active 9 ESSENTIAL (PRIMARY) HYPERTENSION 06/05/[address] active 10 GOUT, UNSPECIFIED 06/05/[address] active 11 IRON DEFICIENCY ANEMIA, UNSPECIFIED 06/05/[address] active 12 PRIMARY OSTEOARTHRITIS, OTHER SPECIFIED SITE 06/05/[address] active 13 PURE HYPERCHOLESTEROLEM IA, UNSPECIFIED 06/05/[address] active 14 TYPE 2 DIABETES MELLITUS WITH DIABETIC NEPHROPATHY 06/05/[address] active 15 TYPE 2 DIABETES MELLITUS WITH UNSPECIFIED DIABETIC RETINOPATHY WITHOUT MACULAR EDEMA 06/05/[address] active Reason for Referral No Reasons for Referral Entered Social History Social History Observation Description Start Date End Date Code Code System Current Smoking Status Tobacco smoking consumption unknown 945458083 SNOMED CT Sex Assigned At Female 1945 [address]-3 [facility] Gender Identity Sexual Orientation Vital Signs Code Code System Vitals Name Values and Units Timing Information 2339-0 [facility] Blood Sugar Cqsks=472.0 Units=mg/dL 07/14/2021 9279-1 [facility] Respiratory Rate Value=18.0 Units=/m in 07/14/2021 8462-4 [facility] Blood Pressure-Diastolic Value=60 Un its=mmHg 07/14/2021 8480-6 [facility] Blood Pressure-Systolic Tfnfx=701 Un its=mmHg 07/14/2021 8310-5 [facility] Body Temperature Value=98.2 Units= F 07/14/2021 8867-4 [facility] Heart rate Value=68.0 Units=/min 66214-9 [facility] O2 % BldC Oximetry Value=98.0 Units= % 07/14/2021 45012-9 [facility] Weight Pljur=416.7 Units=Lbs 12/2021 8302-2 [facility] Height Value=59.0 Units=Inches 06/07/2021
[2025-02-25 16:26] LABS: INR 1.2; Partial Thromboplastin Time 22.6 Sec (23.9-30.70); Prothrombin Time 13.0 Seconds (9.50-12.1)
[2025-02-25 16:30] LABS: Alanine Aminotransferase 16 U/L (6-35); Albumin Level 3.2 g/dL (3.5-5.1); Alkaline Phosphatase 88 U/L (38-126); Anion Gap 12 mmol/L (4-12); Aspartate Amino Transferase 46 U/L (14-36); Bilirubin,Total 1.1 mg/dL (0.2-1.3); Blood Urea Nitrogen 19 mg/dL (7-17); Calcium 8.1 mg/dL (8.4-10.2); Carbon Dioxide 13 mmol/L (22-30); Chloride 105 mmol/L (98-107); Estimated Glomerular Filt Rate 38; Glucose 195 mg/dL (65-110); Lipase 20 U/L (23-300); Osmolality Calculated 277 mOsm/kg (285-295); Potassium 4.0 mmol/L (3.4-5.0); Sodium 130 mmol/L (137-145); Total Protein 6.2 g/dL (6.3-8.2)
[2025-02-25 16:38] LABS: Immature Platelet Fraction Pct 2.9 % (1.0-7.0); Mean Corpuscular HGB Conc 31.2 g/dL (32-36); Mean Corpuscular Hemoglobin 27.1 pg (27.0-31.0); Mean Corpuscular Volume 86.9 fL (78.0-102.0); Platelet Count Result 38 K/mm3 (150-420); Red Blood Count 2.36 M/mm3 (4.20-5.40); White Blood Count 3.6 K/mm3 (4.8-10.8)
[2025-02-25 16:41] LABS: Hematocrit 20.5 % (35.0-42.0); Hemoglobin 6.4 g/dL (11.7-13.8)
[2025-02-25 16:57] LABS: NT Pro B Type Natriuretic Pept 3860 pg/mL (19.9-100)
--- NOTE | 2025-02-25 16:59 | ED.RECABL ---
HPI - Recheck/Abnormal Lab/Rx General Chief Complaint: Recheck/Abnormal Lab/Rx Stated Complaint: abnormal labs Time Seen by Provider: 02/25/25 15:06 Source: patient and family Mode of arrival: ambulatory Limitations: no limitations History of Present Illness HPI narrative: Patient is an 79-year-old female who has known CLL here with abnormal blood work from the primary doctor for evaluation. She had an elevated troponin without chest pain but some abdominal pain last night and nausea. The primary doctor did labs and a chest x-ray today. There was a chest x-ray that showed pneumonia. The troponin was elevated and creatinine was elevated. Patient had no major complaints on entry to the emergency room. Also hemoglobin was noted to be lower than normal. MD complaint: abnormal lab Initial visit (ago): day(s) (One) Initial visit for: other (Upper abdominal pain and nausea last night; primary did labs and chest x-ray today) Returns today for: other (Elevated troponin and creatinine and pneumonia on chest x-ray; also anemia worse than normal) Description of abnormal result: Pneumonia, elevated creatinine, elevated troponin, anemia Symptoms since prior visit: no new symptoms Context: called for abnormal lab result (Sent to ER for evaluation) Associated symptoms: none Treatments prior to arrival: other (None) Related Data Home Medications ?Medication ?Instructions ?Recorded ?Confirmed ?Last Taken ?Type allopurinol 100 mg tablet 100 mg PO BID 04/05/20 06/21/24 04/24/24 History carvedilol 25 mg tablet 25 mg PO BID 04/05/20 06/21/24 04/24/24 History hydrochlorothiazide 25 mg tablet 25 mg PO QAM 04/05/20 06/21/24 04/24/24 History insulin NPH isoph U-100 human 100 See Rx Instructions .Route .COMPLEX 04/05/20 06/21/24 04/24/24 History unit/mL subcutaneous suspension (Novolin N NPH U-100 Insulin isophane) montelukast 10 mg tablet 10 mg PO QAM 04/05/20 06/21/24 04/24/24 History omeprazole 40 mg capsule,delayed 40 mg PO QAM 04/05/20 06/21/24 04/24/24 History release simvastatin 20 mg tablet 20 mg PO HS 04/05/20 06/21/24 04/24/24 History ferrous sulfate 325 mg (65 mg 325 mg PO DAILY 05/27/24 06/21/24 Unknown History iron) tablet (Feosol) memantine 10 mg tablet (Namenda) 10 mg PO BID 05/27/24 06/21/24 Unknown History Allergies Allergy/AdvReac Type Severity Reaction Status Date / Time No Known Allergies Allergy Verified 02/25/25 22:38 Review of Systems Review of Systems: All systems reviewed & are unremarkable except as noted in HPI and below Constitutional: Constitutional: Reports no additional constitutional complaints Eyes: Eyes: Reports no additional eye complaints ENT: Reports system reviewed and no additional complaints, except as documented Cardiovascular: Cardiovascular: Reports no additional cardiovascular complaints Respiratory: Respiratory: Reports no additional respiratory complaints Gastrointestinal: Gastrointestinal: Reports no additional gastrointestinal complaints Genitourinary: Genitourinary: Reports no additional female genitourinary complaints Musculoskeletal: Musculoskeletal: Reports no additional musculoskeletal complaints Integumentary/Breasts: Skin/Breast: Reports system reviewed and no additional complaints, except as docu Neurologic: Reports system reviewed and no additional complaints, except as documented Psychiatric: Psychiatric: Reports no additional psychiatric complaints Endocrine: Endocrine: Reports no additional endocrine complaints Hematologic/Lymphatic: Hematologic/Lymphatic: Reports no additional hematologic/lymphatic complaints Allergic/Immunologic: Allergic/Immunologic: Reports no additional allergic/immunologic complaints [facility] Past Medical History Medical History Bronchitis Cellulitis of left hand Social History Social History Smoking status: Never smoker Second hand tobacco smoke exposure: No Alcohol intake: never Substance use: never Substance use type: does not use Living arrangements: alone Spiritual care concerns: No Exam Const: General: no acute distress Nutritional Appearance: well nourished Limitations: other limitations (Baseline mild dementia) HENMT: Head: normal to inspection Ears: external ears normal Face/Nose/Sinus: Normal external nose present Eyes: Conjunctivae: conjunctivae normal Pupils: Equal, round and reactive pupils present EOM: EOMs intact bilaterally Neck: Neck: normal visual inspection Chest: Chest palpation & inspection: normal inspection of the chest Resp: Effort & Inspection: normal respiratory effort and not labored Auscultation: clear to auscultation bilaterally and no crackles Cardio: Rate: regular rate Rhythm: regular rhythm Heart sounds: Murmur heart sound present (Two to 3/6 systolic crescendo left sternal border murmur) continuous GI: Inspection: non-distended GI Palp: Yes Soft to palpation and No Tenderness to palpation present (GI) Auscultation: normal bowel sounds : General: Yes bladder normal to palpation Back/Spine/Pelvis: Back: no CVA tenderness Skin: General skin exam: No normal color and pallor Rashes: no rashes Wounds: no wounds Neuro: General: patient oriented x3, moves all extremities, no meningeal signs, no focal motor deficits and CN's II-XI intact bilaterally Cranial nerves: Yes Nystagmus not present Speech: normal speech Gait exam (Neuro): Normal gait present Other: Fast exam negative, NIH score is 0, GCS is 15 Extrem: General: normal to inspection, no clubbing, cyanosis or edema and no pedal edema Psych: Mental Status: mental status grossly normal (Baseline mild dementia) Affect: normal affect Attitude: cooperative Course Vital Signs Vital signs: Vital Signs Temperature 37.3 C 02/25/25 15:05 Pulse Rate 71 02/25/25 15:05 Respiratory Rate 16 02/25/25 15:05 Blood Pressure 124/47 L 02/25/25 15:05 Pulse Oximetry 98 02/25/25 15:05 Oxygen Delivery Room Air 02/25/25 15:05 Temperature 39.1 C H 02/25/25 21:50 Pulse Rate 103 H 02/25/25 23:02 Respiratory Rate 25 H 02/25/25 23:02 Blood Pressure 152/54 H 02/25/25 23:02 Pulse Oximetry 99 02/25/25 23:02 Oxygen Delivery Non-Rebreather Mask 02/25/25 23:02 Oxygen Flow Rate 11 02/25/25 23:02 [facility] Narrative Medical decision making narrative: Patient is an 79-year-old female with multiple laboratory abnormalities here for evaluation. Repeat needed labs. Reviewed chest x-ray which shows pneumonia. Repeat studies show anemia with CARLOS and decreasing troponin level. No chest pains. As time went on in the emergency room, the patient started to get short of breath and a fever. We did blood cultures and started Zosyn. Supplemental oxygen. Patient attempting to get transfer to higher level medical care throughout the day. Anemia dropped and was under 7 and she requires blood transfusion but she has multiple antibodies that are going to take time to get blood. ABG was done and stable patient was noted. She started to desaturate towards time of transfer and switch to non-rebreather. Otherwise vital signs remained stable. Desaturation at time of transfer got up to 100% with non-rebreather. Respiratory rate went from 30s to teens. Heart rate dropped from the 1 teens to around 100. Her blood pressure is 152/54. Differential Diagnosis Differential Diagnosis: Anemia acute on chronic, pneumonia, sepsis, CARLOS Lab Data MDM Lab Attestation statement: I personally reviewed the patient's lab results. 02/25/25 16:30 02/25/25 16:30 Labs: Lab Results 02/25/25 02/25/25 02/25/25 Range/Units 16:04 16:30 16:30 WBC 3.6 L (4.8-10.8) K/mm3 RBC 2.36 L (4.20-5.40) M/mm3 Hgb 6.4 L* (11.7-13.8) g/dL Hct 20.5 L* (35.0-42.0) % MCV 86.9 (78.0-102.0) fL MCH 27.1 (27.0-31.0) pg MCHC 31.2 L (32-36) g/dL RDW 16.0 H (11.6-14.4) % Plt Count 38 L (150-420) K/mm3 MPV 10.9 (9.2-11.8) fl Immature Gran % (Auto) Not Reportable Neut % (Auto) Not Reportable Lymph % (Auto) Not Reportable Sublette % (Auto) Not Reportable Eos % (Auto) Not Reportable Baso % (Auto) Not Reportable Lymph # (Auto) Not Reportable [place]lette # (Auto) Not Reportable Eos # (Auto) Not Reportable Baso # (Auto) Not Reportable Abs Immat Gran (auto) Not Reportable Absolute Neuts (auto) Not Reportable Absolute Nucleated RBC Not Reportable Total Counted 100 Neutrophils % (Manual) 76 H (46-73) % Band Neutrophils % 0 (0-6) % Lymphocytes % (Manual) 11 L (18-44) % Monocytes % (Manual) 12 H (3-9) % Eosinophils % (Manual) 1 (1-6) % Basophils % (Manual) 0 (0-1) % Nucleated RBC % Not Reportable Abs Neuts (Manual) 2.73 (1.3-6.7) K/mm3 Abs Lymphs (Manual) 0.39 L (1.1-4.5) K/mm3 Abs Monocytes (Manual) 0.43 (0.1-0.90) K/mm3 Absolute Eos (Manual) 0.03 (0.02-0.50) K/mm3 Abs Basophils (Manual) 0.00 (0-0.1) K/mm3 Platelet Estimate Decreased (Adequate) % Immature Plt Fraction 2.9 (1.0-7.0) % Schistocytes Not Reportable PT 13.0 H (9.50-12.1) Seconds INR 1.2 APTT 22.6 L (23.9-30.70) Sec Sodium 130 L 132 L (137-145) mmol/L Potassium 4.0 (3.4-5.0) mmol/L Chloride (98-107) mmol/L Carbon Dioxide (22-30) mmol/L Anion Gap (4-12) mmol/L BUN (7-17) mg/dL Creatinine (0.7-1.0) mg/dL Estim Creat Clear Calc Not Reportable Estimated GFR (59 - ) Glucose (65-110) mg/dL Calculated Osmolality (285-295) mOsm/kg Lactic Acid (0.7-2.0) mmol/L Calcium (8.4-10.2) mg/dL Total Bilirubin (0.2-1.3) mg/dL AST (14-36) U/L ALT (6-35) U/L Alkaline Phosphatase (38-126) U/L Troponin I (0.000-0.034) ng/mL NT-Pro-B Natriuret Pep (19.9-100) pg/mL Total Protein (6.3-8.2) g/dL Albumin (3.5-5.1) g/dL Lipase (23-300) U/L Influenza A (RT-PCR) (Negative) Influenza B (RT-PCR) (Negative) RSV (RT-PCR) (Negative) SARS-CoV-2 RNA (RT-PCR) (Negative) Blood Type Antibody Screen Antibody Identification Antigen Identification TYLER, IgG Interpret TYLER, Poly Interpret TYLER, Complement Interp Enhanced Crossmatch 02/25/25 02/25/25 02/25/25 Range/Units 16:30 16:30 16:30 WBC (4.8-10.8) K/mm3 RBC (4.20-5.40) M/mm3 Hgb (11.7-13.8) g/dL Hct (35.0-42.0) % MCV (78.0-102.0) fL MCH (27.0-31.0) pg MCHC (32-36) g/dL RDW (11.6-14.4) % Plt Count (150-420) K/mm3 MPV (9.2-11.8) fl Immature Gran % (Auto) Neut % (Auto) Lymph % (Auto) [place] % (Auto) Eos % (Auto) Baso % (Auto) Lymph # (Auto) [place] # (Auto) Eos # (Auto) Baso # (Auto) Abs Immat Gran (auto) Absolute Neuts (auto) Absolute Nucleated RBC Total Counted Neutrophils % (Manual) (46-73) % Band Neutrophils % (0-6) % Lymphocytes % (Manual) (18-44) % Monocytes % (Manual) (3-9) % Eosinophils % (Manual) (1-6) % Basophils % (Manual) (0-1) % Nucleated RBC % Abs Neuts (Manual) (1.3-6.7) K/mm3 Abs Lymphs (Manual) (1.1-4.5) K/mm3 Abs Monocytes (Manual) (0.1-0.90) K/mm3 Absolute Eos (Manual) (0.02-0.50) K/mm3 Abs Basophils (Manual) (0-0.1) K/mm3 Platelet Estimate (Adequate) % Immature Plt Fraction (1.0-7.0) % Schistocytes PT (9.50-12.1) Seconds INR APTT (23.9-30.70) Sec Sodium (137-145) mmol/L Potassium 4.2 (3.4-5.0) mmol/L Chloride 105 105 (98-107) mmol/L Carbon Dioxide 13 L 17 L (22-30) mmol/L Anion Gap 12 (4-12) mmol/L BUN (7-17) mg/dL Creatinine (0.7-1.0) mg/dL Estim Creat Clear Calc Estimated GFR (59 - ) Glucose (65-110) mg/dL Calculated Osmolality (285-295) mOsm/kg Lactic Acid (0.7-2.0) mmol/L Calcium (8.4-10.2) mg/dL Total Bilirubin (0.2-1.3) mg/dL AST (14-36) U/L ALT (6-35) U/L Alkaline Phosphatase (38-126) U/L Troponin I (0.000-0.034) ng/mL NT-Pro-B Natriuret Pep (19.9-100) pg/mL Total Protein (6.3-8.2) g/dL Albumin (3.5-5.1) g/dL Lipase (23-300) U/L Influenza A (RT-PCR) (Negative) Influenza B (RT-PCR) (Negative) RSV (RT-PCR) (Negative) SARS-CoV-2 RNA (RT-PCR) (Negative) Blood Type Antibody Screen Antibody Identification Antigen Identification TYLER, IgG Interpret TYLER, Poly Interpret TYLER, Complement Interp Enhanced Crossmatch 02/25/25 02/25/25 02/25/25 Range/Units 16:30 16:30 16:30 WBC (4.8-10.8) K/mm3 RBC (4.20-5.40) M/mm3 Hgb (11.7-13.8) g/dL Hct (35.0-42.0) % MCV (78.0-102.0) fL MCH (27.0-31.0) pg MCHC (32-36) g/dL RDW (11.6-14.4) % Plt Count (150-420) K/mm3 MPV (9.2-11.8) fl Immature Gran % (Auto) Neut % (Auto) Lymph % (Auto) [place]lette % (Auto) Eos % (Auto) Baso % (Auto) Lymph # (Auto) [place] # (Auto) Eos # (Auto) Baso # (Auto) Abs Immat Gran (auto) Absolute Neuts (auto) Absolute Nucleated RBC Total Counted Neutrophils % (Manual) (46-73) % Band Neutrophils % (0-6) % Lymphocytes % (Manual) (18-44) % Monocytes % (Manual) (3-9) % Eosinophils % (Manual) (1-6) % Basophils % (Manual) (0-1) % Nucleated RBC % Abs Neuts (Manual) (1.3-6.7) K/mm3 Abs Lymphs (Manual) (1.1-4.5) K/mm3 Abs Monocytes (Manual) (0.1-0.90) K/mm3 Absolute Eos (Manual) (0.02-0.50) K/mm3 Abs Basophils (Manual) (0-0.1) K/mm3 Platelet Estimate (Adequate) % Immature Plt Fraction (1.0-7.0) % Schistocytes PT (9.50-12.1) Seconds INR APTT (23.9-30.70) Sec Sodium (137-145) mmol/L Potassium (3.4-5.0) mmol/L Chloride (98-107) mmol/L Carbon Dioxide (22-30) mmol/L Anion Gap 10 (4-12) mmol/L BUN 19 H 20 H (7-17) mg/dL Creatinine 1.35 H 1.37 H (0.7-1.0) mg/dL Estim Creat Clear Calc Not Reportable Estimated GFR 38 L (59 - ) Glucose (65-110) mg/dL Calculated Osmolality (285-295) mOsm/kg Lactic Acid (0.7-2.0) mmol/L Calcium (8.4-10.2) mg/dL Total Bilirubin (0.2-1.3) mg/dL AST (14-36) U/L ALT (6-35) U/L Alkaline Phosphatase (38-126) U/L Troponin I (0.000-0.034) ng/mL NT-Pro-B Natriuret Pep (19.9-100) pg/mL Total Protein (6.3-8.2) g/dL Albumin (3.5-5.1) g/dL Lipase (23-300) U/L Influenza A (RT-PCR) (Negative) Influenza B (RT-PCR) (Negative) RSV (RT-PCR) (Negative) SARS-CoV-2 RNA (RT-PCR) (Negative) Blood Type Antibody Screen Antibody Identification Antigen Identification TYLER, IgG Interpret TYLER, Poly Interpret TYLER, Complement Interp Enhanced Crossmatch 02/25/25 02/25/25 02/25/25 Range/Units 16:30 16:30 16:30 WBC (4.8-10.8) K/mm3 RBC (4.20-5.40) M/mm3 Hgb (11.7-13.8) g/dL Hct (35.0-42.0) % MCV (78.0-102.0) fL MCH (27.0-31.0) pg MCHC (32-36) g/dL RDW (11.6-14.4) % Plt Count (150-420) K/mm3 MPV (9.2-11.8) fl Immature Gran % (Auto) Neut % (Auto) Lymph % (Auto) [place]lette % (Auto) Eos % (Auto) Baso % (Auto) Lymph # (Auto) [place] # (Auto) Eos # (Auto) Baso # (Auto) Abs Immat Gran (auto) Absolute Neuts (auto) Absolute Nucleated RBC Total Counted Neutrophils % (Manual) (46-73) % Band Neutrophils % (0-6) % Lymphocytes % (Manual) (18-44) % Monocytes % (Manual) (3-9) % Eosinophils % (Manual) (1-6) % Basophils % (Manual) (0-1) % Nucleated RBC % Abs Neuts (Manual) (1.3-6.7) K/mm3 Abs Lymphs (Manual) (1.1-4.5) K/mm3 Abs Monocytes (Manual) (0.1-0.90) K/mm3 Absolute Eos (Manual) (0.02-0.50) K/mm3 Abs Basophils (Manual) (0-0.1) K/mm3 Platelet Estimate (Adequate) % Immature Plt Fraction (1.0-7.0) % Schistocytes PT (9.50-12.1) Seconds INR APTT (23.9-30.70) Sec Sodium (137-145) mmol/L Potassium (3.4-5.0) mmol/L Chloride (98-107) mmol/L Carbon Dioxide (22-30) mmol/L Anion Gap (4-12) mmol/L BUN (7-17) mg/dL Creatinine (0.7-1.0) mg/dL Estim Creat Clear Calc Estimated GFR 37 L (59 - ) Glucose 195 H 192 H (65-110) mg/dL Calculated Osmolality 277 L 281 L (285-295) mOsm/kg Lactic Acid 1.1 (0.7-2.0) mmol/L Calcium 8.1 L (8.4-10.2) mg/dL Total Bilirubin (0.2-1.3) mg/dL AST (14-36) U/L ALT (6-35) U/L Alkaline Phosphatase (38-126) U/L Troponin I (0.000-0.034) ng/mL NT-Pro-B Natriuret Pep (19.9-100) pg/mL Total Protein (6.3-8.2) g/dL Albumin (3.5-5.1) g/dL Lipase (23-300) U/L Influenza A (RT-PCR) (Negative) Influenza B (RT-PCR) (Negative) RSV (RT-PCR) (Negative) SARS-CoV-2 RNA (RT-PCR) (Negative) Blood Type Antibody Screen Antibody Identification Antigen Identification TYLER, IgG Interpret TYLER, Poly Interpret TYLER, Complement Interp Enhanced Crossmatch 02/25/25 02/25/25 Range/Units 16:30 20:11 WBC (4.8-10.8) K/mm3 RBC (4.20-5.40) M/mm3 Hgb (11.7-13.8) g/dL Hct (35.0-42.0) % MCV (78.0-102.0) fL MCH (27.0-31.0) pg MCHC (32-36) g/dL RDW (11.6-14.4) % Plt Count (150-420) K/mm3 MPV (9.2-11.8) fl Immature Gran % (Auto) Neut % (Auto) Lymph % (Auto) [place] % (Auto) Eos % (Auto) Baso % (Auto) Lymph # (Auto) [place] # (Auto) Eos # (Auto) Baso # (Auto) Abs Immat Gran (auto) Absolute Neuts (auto) Absolute Nucleated RBC Total Counted Neutrophils % (Manual) (46-73) % Band Neutrophils % (0-6) % Lymphocytes % (Manual) (18-44) % Monocytes % (Manual) (3-9) % Eosinophils % (Manual) (1-6) % Basophils % (Manual) (0-1) % Nucleated RBC % Abs Neuts (Manual) (1.3-6.7) K/mm3 Abs Lymphs (Manual) (1.1-4.5) K/mm3 Abs Monocytes (Manual) (0.1-0.90) K/mm3 Absolute Eos (Manual) (0.02-0.50) K/mm3 Abs Basophils (Manual) (0-0.1) K/mm3 Platelet Estimate (Adequate) % Immature Plt Fraction (1.0-7.0) % Schistocytes PT (9.50-12.1) Seconds INR APTT (23.9-30.70) Sec Sodium (137-145) mmol/L Potassium (3.4-5.0) mmol/L Chloride (98-107) mmol/L Carbon Dioxide (22-30) mmol/L Anion Gap (4-12) mmol/L BUN (7-17) mg/dL Creatinine (0.7-1.0) mg/dL Estim Creat Clear Calc Estimated GFR (59 - ) Glucose (65-110) mg/dL Calculated Osmolality (285-295) mOsm/kg Lactic Acid (0.7-2.0) mmol/L Calcium 8.2 L (8.4-10.2) mg/dL Total Bilirubin 1.1 (0.2-1.3) mg/dL AST 46 H (14-36) U/L ALT 16 (6-35) U/L Alkaline Phosphatase 88 (38-126) U/L Troponin I 1.000 H* D (0.000-0.034) ng/mL NT-Pro-B Natriuret Pep 3860 H (19.9-100) pg/mL Total Protein 6.2 L (6.3-8.2) g/dL Albumin 3.2 L (3.5-5.1) g/dL Lipase 20 L (23-300) U/L Influenza A (RT-PCR) Negative (Negative) Influenza B (RT-PCR) Negative (Negative) RSV (RT-PCR) Negative (Negative) SARS-CoV-2 RNA (RT-PCR) Negative (Negative) Blood Type A Positive Antibody Screen Positive Antibody Identification Pending Antigen Identification Pending TYLER, IgG Interpret Pending TYLER, Poly Interpret Pending TYLER, Complement Interp Pending Enhanced Crossmatch See Detail ABG Data ABG results: 02/25/25 20:48 Puncture Site Left radial ABG pH 7.45 ABG pCO2 14.5 L* ABG pO2 90.5 H ABG HCO3 9.9 L ABG O2 Saturation 94.6 L ABG Base Excess -14.0 L Oxyhemoglobin 93.8 L O2 Delivery Device Room air O2 Liters/Min Not Reportable Imaging Data Attestation: I personally reviewed and interpreted this imaging study as follows: Radiologist's impression: Chest x-ray shows bilateral basilar infiltrates ECG Data EKG #1: Attestation: I personally reviewed and interpreted this ECG as follows: ECG completion date: 02/25/25 ECG completion time: 23:10 normal rate, sinus rhythm, no ectopy, non-specific ST changes, normal QRS, normal QT and left axis Critical Care Time Critical Care Time Critical Care Time: Yes Initial evaluation, discuss w/ involved parties, attempting to gather old records: N/A Documenting medical record: N/A Review of results (EKG's, labs, imaging): N/A Serial repeat bedside evaluation: N/A Discussing case with multiple memebers of the care team and consultants: N/A Total Critical Care Time: 0 Discharge Plan Discharge Clinical Impression: Thrombocytopenia, Elevated troponin, Cardiac murmur, Chronic lymphocytic leukemia, CARLOS (acute kidney injury) Anemia Qualifiers: Anemia type: unspecified type Qualified Code(s): D64.9 - Anemia, unspecified Leukocytopenia Qualifiers: Leukopenia type: unspecified Qualified Code(s): D72.819 - Decreased white blood cell count, unspecified Patient Disposition: Acute Care Hospital Condition: Guarded Prognosis Patient Language: Swedish Prescriptions: No Action ferrous sulfate [Feosol] 325 mg (65 mg iron) tablet 325 mg PO DAILY Rx Instructions: 325 mg orally Fri-Fri-Fri; memantine [Namenda] 10 mg tablet 10 mg PO BID carvedilol 25 mg tablet 25 mg PO BID allopurinol 100 mg tablet 100 mg PO BID omeprazole 40 mg capsule,delayed release(DR/EC) 40 mg PO QAM simvastatin 20 mg Tablet 20 mg PO HS Novolin N NPH U-100 Insulin 100 unit/mL suspension See Rx Instructions .ROUTE .COMPLEX Rx Instructions: 70 UNITS am AND 300 UNITS AT NOC montelukast 10 mg tablet 10 mg PO QAM hydrochlorothiazide 25 mg tablet 25 mg PO QAM Follow-up/Referrals: Jonathon Nguyen MD [Primary Care Provider, Internal Medicine] Time of Disposition: 23:14
[2025-02-25 17:00] LABS: Troponin I 1.000 ng/mL (0.000-0.034)
[2025-02-25 17:44] LABS: Band Neutrophils Percent 0 % (0-6); Basophils Absolute Manual 0.00 K/mm3 (0-0.1); Basophils Percent Manual 0 % (0-1); Eosinophils Absolute Manual 0.03 K/mm3 (0.02-0.50); Eosinophils Percent Manual 1 % (1-6); Lymphocytes Absolute Manual 0.39 K/mm3 (1.1-4.5); Lymphocytes Percent Manual 11 % (18-44); Monocytes Absolute Manual 0.43 K/mm3 (0.1-0.90); Monocytes Percent Manual 12 % (3-9); Neutrophils Absolute Manual 2.73 K/mm3 (1.3-6.7); Neutrophils Percent Manual 76 % (46-73); Total Cells Counted 100
--- NOTE | 2025-02-25 18:38 | PC.NURSE ---
meal provided, call shepard in reach
--- NOTE | 2025-02-25 19:37 | PC.NURSE ---
1914 report to delbert morataya
--- NOTE | 2025-02-25 20:15 | PC.NURSE ---
Please contact Kam schuster, with questions and concerns.
[2025-02-25] MEDS: SODIUM CHLORIDE 0.9% IV 1,000 ML 999 ML IV CONT (20:36)
[2025-02-25 20:41] LABS: Anion Gap 10 mmol/L (4-12); Blood Urea Nitrogen 20 mg/dL (7-17); Calcium 8.2 mg/dL (8.4-10.2); Carbon Dioxide 17 mmol/L (22-30); Chloride 105 mmol/L (98-107); Estimated Glomerular Filt Rate 37; Glucose 192 mg/dL (65-110); Osmolality Calculated 281 mOsm/kg (285-295); Potassium 4.2 mmol/L (3.4-5.0); Sodium 132 mmol/L (137-145)
--- NOTE | 2025-02-25 20:49 | PC.NURSE ---
ERP aware of vital signs. No new orders at this time.
[2025-02-25 21:01] LABS: Influenza A QL RT-PCR Negative (Negative); Influenza B QL RT-PCR Negative (Negative); RSV RNA, RT-PCR Negative (Negative); SARS-CoV-2 RNA PCR Negative (Negative)
[2025-02-25 21:02] LABS: HCO3 ABG 9.9 mmol/L (23-29); Oxygen Saturation ABG 94.6 % (95-97); PO2 ABG 90.5 mmHg (75-85)
[2025-02-25 21:05] LABS: Modified Allen's Test Unable to perform; PCO2 ABG 14.5 mmHg (35-45); Site Drawn LEFT RADIAL
[2025-02-25] MEDS: PIPERACILLIN/TAZOBACTAM SOD 3.375 GM in SODIUM CHLORIDE 0.9% IV 50 ML 100 ML IVPB (21:37)
[2025-02-25] MEDS: ACETAMINOPHEN 160 MG/5 ML ORAL SYRINGE 640 MG PO (21:50)
--- NOTE | 2025-02-25 23:20 | PC.NURSE ---
Called pt's sonKam to let him know that pt was transferred to [facility], Room B629.
--- NOTE | 2025-03-01 15:51 | PC.NURSE ---
PRELIMINARY BLOOD CULTURE RESULT; NO GROWTH IN 24 HOURS.
== END 2025-02-25 23:25 | disposition short-term general hospital (02) ==
PROVIDERS: Emergency Provider Emergency Medicine; PCP Internal Medicine
DX: D69.6 Thrombocytopenia, unspecified (principal); R01.1 Cardiac murmur, unspecified; C91.10 Chronic lymphocytic leukemia of B-cell type not having achieved remission; N17.9 Acute kidney failure, unspecified; R79.89 Other specified abnormal findings of blood chemistry; D64.9 Anemia, unspecified; Z20.822 Contact with and (suspected) exposure to COVID-19
CPT/HCPCS: 36415; 36600; 80048; 80053; 82805; 83605; 83690; 83880; 84484; 85025; 85055; 85610; 85730; 86850; 86880; 86900; 86901; 86902; 86922; 87637; 93005; 96361; 96365; 99285; A9270; J2543; J7030